=== PATIENT | male | born 1965 | race Caucasian/White ===

== ENCOUNTER 2020-02-17 06:54 | Outpatient (REF) | payer OTHER, MEDICAID, SELFPAY | END 2020-02-17 06:55 | disposition home or self-care (01) | LOC: HO.LAB 06:54 | PROVIDERS: Visit Provider Internal Medicine | DX: Z20.828 Contact with and (suspected) exposure to other viral communicable diseases (principal) | CPT/HCPCS: C9803; U0003 ==

== ENCOUNTER 2020-04-07 16:22 | Outpatient (REF) | payer MEDICAID, SELFPAY | END 2020-04-07 16:23 | disposition home or self-care (01) | LOC: HO.LAB 16:22 | PROVIDERS: Visit Provider Internal Medicine | DX: Z20.828 Contact with and (suspected) exposure to other viral communicable diseases (principal) | CPT/HCPCS: C9803; U0003 ==

== ENCOUNTER 2024-06-01 08:38 | Outpatient (AMB) | payer OTHER, SELFPAY ==
[2024-06-01 08:46] VITALS: BP 117/80; PULSE 76; TEMP 36.4; O2SAT 96
--- NOTE | 2024-06-01 08:46 | AM.OFFWIN_ITS ---
Intake Vital Signs 06/01/24 08:46 Weight 150 lb BP 117/80 Blood Pressure Location Rt brachial Position Sitting Pulse 76 Pulse Source Pulse Oximeter Temp 97.6 F Temp Source Oral Pulse Oximetry (%) 96 Oxygen Delivery Method Room Air Intake Visit Reasons: EP Cough due to COPD Intake Note: Patient here for cough, foamy phlegm . Pt has COPD Patient Tobacco Use Status: Current everyday Tobacco user Allergies penicillin G Allergy (Unknown, Verified 06/01/24 08:50) unknown penicillin V Allergy (Unknown, Verified 06/01/24 08:50) unknown reaction Penicillins [PENICILLINS] Allergy (Unknown, Unverified 06/01/24 08:50) UNKNOWN Do you need a note to return to daycare/school/sports/work: No HPI HPI Comments History of Present Illness Details 59 y/o male patient who presents to the walk in clinic with c/o chronic cough, SOB And wheezing. Pt self report h/o COPD, but has not been diagnosed and treated for it. He currently has no PCP and has not been seen for few years. He is a chronic cigarette smoker for years. [facility] Medical History (Updated 06/01/24 @ 09:35 by Sarai Koehler NP) Acute respiratory disease Wheezing on auscultation Cough Family History (Updated 01/14/20 @ 15:30 by JAQUELIN Troncoso) Father Lung cancer Mother Unknown family medical history Social History Patient Tobacco Use Status: Current everyday Tobacco user Review of Systems Const All systems reviewed & are unremarkable except as noted in HPI and below Physical Exam Vital Signs: Last Vital Signs Temp 97.6 F 06/01/24 08:46 Pulse 76 06/01/24 08:46 BP 117/80 06/01/24 08:46 Pulse Ox 96 06/01/24 08:46 Oxygen Delivery Method Room Air 06/01/24 08:46 Const General: cooperative and no acute distress Orientation/consciousness: patient oriented x3 HEENT Head: Yes normocephalic Ears: external ears normal and TM's normal bilaterally General nose exam: Normal external nose present Face and sinus: Yes normal facial exam Mouth: moist mucous membranes Resp Effort & Inspection: able to speak in complete sentences, audible wheezes and Actively coughing Auscultation: no crackles, no rales, rhonchi and wheezes Cardio Heart sounds: S1 normal heart sound present and S2 normal heart sound present Neuro General: patient oriented x3 Office Procedures Nebulizer Treatment Nebulizer Treatment [id number]/MDI RX initial, or Nebulizer Subsequent Treatment Office Meds ipratropium 0.5 mg-albuterol 3 mg (2.5 mg base)/3 mL nebulization soln Performing Provider: Sarai Koehler NP Performing Location: [facility] Administered by: Sarai Koehler NP on 06/01/24 09:26 Dose Route Admin Location Dispensed Lot Number Expiration Date [facility] Director Cpg 3 mL inhalation 3 mL [id number] 06/05/25 71292-420-28 AHP Assessment & Plan Assessment & Plan (1) Cough: Code(s): R05.9 - Cough, unspecified Qualifiers: Cough type: chronic Qualified Code(s): R05.3 - Chronic cough Plan: Neb Treatment in office Prednisone for 5 days Doxy for 10 days Chest Xray ordered Will have Pt establish care with New PCP. (2) Wheezing on auscultation: Code(s): R06.2 - Wheezing Plan: Neb Treatment in office Prednisone for 5 days Doxy for 10 days Chest Xray ordered Will have Pt establish care with New PCP. (3) Acute respiratory disease: Code(s): J06.9 - Acute upper respiratory infection, unspecified Plan: Neb Treatment in office Prednisone for 5 days Doxy for 10 days Chest Xray ordered Will have Pt establish care with New PCP. Plan Neb Treatment in office Prednisone for 5 days Doxy for 10 days Chest Xray ordered Will have Pt establish care with New PCP. Orders: Orders XR chest 2V Today R05.9 - Cough, unspecified AMB Nebulizer Treatment Today R05.3 - Chronic cough, R06.2 - Wheezing SARS-CoV2/FLU/RSV Today J06.9 - Acute upper respiratory infection, unspecified Medications: New albuterol sulfate 90 mcg/actuation 2 puffs inhalation Q4-6H PRN 6.7 grams 0RF shortness of breath or wheezing levofloxacin 750 mg PO Q24H 5 days 5 tabs 0RF J06.9 - Acute upper respiratory infection, unspecified, R05.3 - Chronic cough, R06.2 - Wheezing prednisone 50 mg PO DAILY 5 days 5 tabs 0RF J06.9 - Acute upper respiratory infection, unspecified, R05.3 - Chronic cough, R06.2 - Wheezing doxycycline hyclate 100 mg PO BID 10 days 20 tabs 0RF J06.9 - Acute upper respiratory infection, unspecified, R05.3 - Chronic cough, R06.2 - Wheezing Discontinued nicotine Discontinued Reason: Patient Completed Course 1 patch transdermal DAILY 28 patches 3RF Coding Level of Care Code Est Pt Level 4 (72364) Diagnoses Chronic cough R05.3 Cough type: chronic Wheezing on auscultation R06.2 Acute respiratory disease J06.9 CPT Codes Nebulizer Treatment - Nebulizer Treatment, initial or subsequent: 70239- Nebulizer/MDI RX initial, or Nebulizer Subsequent Treatment ([id number]) Time Spent (min) 20
== END 2024-06-01 09:42 | disposition home or self-care (01) ==
PROVIDERS: Visit Provider Nurse Practitioner Family
DX: R05.3 Chronic cough (principal); R06.2 Wheezing; J06.9 Acute upper respiratory infection, unspecified

== ENCOUNTER 2024-06-01 08:38 | Outpatient (REF) | payer OTHER, SELFPAY ==
--- NOTE | ~2024-06-01 | XR_ITS ---
EXAMINATION: XR CHEST CLINICAL INFORMATION: R05.9 - Cough, unspecified; chronic cough, wheezing, dyspnea. COMPARISON: 07/29/2019. TECHNIQUE: 2 views of the chest were obtained. FINDINGS: The cardiac silhouette is largely obscured but appears likely normal in size. Mediastinal contours appear normal. Aura are obscured. Lungs demonstrate extensive consolidation with air bronchograms throughout the majority of the left long, with only the most superior upper lobe normally aerated. In addition, there is patchy peribronchovascular similar opacity in the right mid and lower lung. Findings reflect multifocal pneumonitis. There is no definite effusion or pneumothorax. There is no focal osseous or soft tissue abnormality. XR/XR chest 2V IMPRESSION: 1. Extensive left greater than right multifocal pneumonitis. 2. No definite pleural effusions although limited assessment on the left due to the degree of consolidation. Findings conveyed to Sarai Koehler NP via secure text at 9:51 AM, 06/01/2024. Electronically signed by: Carlos Moya MD 06/01/2024 09:51 AM LELA
== END 2024-06-01 08:39 | disposition home or self-care (01) ==
LOC: HO.HMGCX 08:38
PROVIDERS: Visit Provider Nurse Practitioner Family
DX: R05.3 Chronic cough (principal); R06.2 Wheezing; J06.9 Acute upper respiratory infection, unspecified
CPT/HCPCS: 71046; 94640; 99212

== ENCOUNTER → 2024-06-01 09:10 | Outpatient (BNV) | payer OTHER, SELFPAY | PROVIDERS: Visit Provider Radiology Diagnostic Radiology | DX: J18.9 Pneumonia, unspecified organism (principal) | CPT/HCPCS: 71046 ==

== ENCOUNTER 2024-06-01 09:35 | Outpatient (REF) | payer OTHER, SELFPAY ==
[2024-06-01 12:22] LABS: Influenza A PCR NEGATIVE (Negative); Influenza B PCR NEGATIVE (Negative); Resp Syncy Virus RNA Qual PCR NEGATIVE (Negative); SARS COV2 PCR INHOUSE NEGATIVE (Negative)
== END 2024-06-01 09:36 | disposition home or self-care (01) ==
LOC: HO.LAB 09:35
PROVIDERS: Visit Provider Nurse Practitioner Family
DX: J06.9 Acute upper respiratory infection, unspecified (principal)
CPT/HCPCS: 0241U

== ENCOUNTER 2024-06-14 10:37 | Inpatient (IN) | payer OTHER, SELFPAY ==
[2024-06-14] VITALS (9 sets, daily range): BP systolic 102–124; BP diastolic 40–75; PULSE 68–93; RESP 18–22; TEMP 36.6–37; O2SAT 86–94; BMI 20.8
--- NOTE | ~2024-06-14 | XR_ITS ---
CLINICAL HISTORY: Right rib cage pain Exam: AP portable chest x-ray. Comparison: July 24, 2024. Findings: Patient has undergone prior left pneumonectomy. Continued large left pleural effusion with continued lucency of the left apex. This suggests increasing fluid filling of the pneumonectomy bed. Dense consolidation of the right mid lung and right lung base with small right pleural effusion. There is volume loss of the left hemithorax with leftward mediastinal shift. Impression: 1. Continued postpneumonectomy changes on the left. Continued radiographic follow-up suggested to ensure complete opacification of the left hemithorax and exclude the possibility of a bronchial stump leak. 2. Edema or pneumonitis within the right lung. This document has been electronically signed by: Bernabe Boateng MD on 07/26/2024 14:09:34
--- NOTE | ~2024-06-14 | XR_ITS ---
EXAMINATION: XR CHEST CLINICAL INFORMATION: pneumonia COMPARISON: 06/01/2024, CT chest 06/27/2024. TECHNIQUE: Frontal view of the chest was obtained. FINDINGS: There is a right midline PICC catheter. This terminates in the right axillary region. The cardiac silhouette is largely obscured. It is likely normal in size. The hilar silhouettes are obscured. The mediastinal and aortic contours appear normal. Extensive parenchymal opacification throughout the entire left lung. No definite left effusion. Extensive parenchymal opacification throughout the mid and lower right lung with probable small effusion. There is underlying COPD. No pneumothorax. No focal osseous or soft tissue abnormality. XR/XR chest 1V IMPRESSION: 1. Extensive parenchymal opacification left greater than right lungs with underlying COPD. Compared with the recent chest CT, there has been mild improvement in the right upper lung region but otherwise no change. (Given the appearance on the recent chest CT, bilateral lung abscesses are suspected). 2. No pneumothorax. 3. Probable small right effusion. No definite left effusion. Electronically signed by: Carlos Moya MD 07/03/2024 01:00 PM EDT
--- NOTE | ~2024-06-14 | XR_ITS ---
EXAMINATION: XR CHEST CLINICAL INFORMATION: hypoxia: Recent left pneumonectomy. Multifocal pneumonia. COMPARISON: Numerous reason priors, most recently 07/28/2024 at 9:47 AM. TECHNIQUE: Frontal view of the chest was obtained. FINDINGS: Left pneumonectomy again noted with fluid occupying the left thoracic space, and a small amount of pneumatization in the pneumonectomy bed superiorly. Appearance is similar to the previous study, with minimal expected decrease in the amount of left apical pneumatization. The cardiac and mediastinal contours are obscured. There is leftward mediastinal shift. There is hyperaeration of the right lung, compensatory. There are similar confluent diffuse opacities throughout the right lung, most confluent in the right mid and lower lung in keeping with stable pneumonitis. Suspect small effusion on the right. No right pneumothorax. XR/XR chest 1V IMPRESSION: 1. Slightly less pneumatization in the left superior thorax, expected postoperative evolution. 2. Stable appearing diffuse pneumonitis throughout the right lung most confluent mid and lower region. Electronically signed by: Carlos Moya MD 07/30/2024 08:15 AM EDT
--- NOTE | ~2024-06-14 | XR_ITS ---
EXAMINATION: XR CHEST CLINICAL INFORMATION: f/u left pneumonectomy, increas oxygen requirement COMPARISON: Numerous priors, most recently 07/26/2024. TECHNIQUE: Frontal view of the chest was obtained. FINDINGS: Left pneumonectomy again noted with fluid occupying the left thoracic space, and a small amount of pneumatization in the pneumonectomy but it superiorly. Appearance is similar to the previous study. The cardiac and mediastinal contours are obscured. There is leftward mediastinal shift. There is hyperaeration of the right lung, compensatory. There are mildly more confluent diffuse opacities throughout the right lung, in keeping with worsening pneumonitis. Suspect small effusion on the right. No right pneumothorax. XR/XR chest 1V IMPRESSION: 1. Slightly more confluent airspace disease throughout the hyperaerated right lung. Electronically signed by: Carlos Moya MD 07/28/2024 10:48 AM EDT
--- NOTE | ~2024-06-14 | MR_ITS ---
EXAMINATION: MRCP protocol CLINICAL INFORMATION: Concerning choledocholithiasis TECHNIQUE: Axial and coronal T2 haste sequences. Axial and coronal T2 fat-sat haste sequences. Coronal oblique T2 fat-sat single slice. 3-D space MRCP triggered. Axial in and out of phase 3-D. COMPARISON: Correlated to ultrasound limited dated July 24, 2024. FINDINGS: There is layering hypointense T2 signal in the dependent portion of the gallbladder. Gallbladder wall measures 2 mm maximal thickness. No pericholecystic fluid collection. Common bile duct measures 5 mm maximal diameter. There is an abrupt cut off in the distal segment prior to junction into the second portion of the duodenum. No gross intraluminal signal abnormality. Main pancreatic duct measures 2 mm maximum diameter. There are a few, less than 3 mm hyperintense T2 cystic lesions in the head of the pancreas. No peripancreatic fluid collection. Liver measures 16 cm. No focal mass. The flow signal within the portal vein and hepatic veins and intrahepatic portion of the IVC is normal. No intrahepatic biliary ductal dilatation. Spleen measures 9 cm. No focal lesion. No nodular lesions in the adrenal glands. No hydronephrosis in either kidney. There is a 1.3 cm exophytic fluid signal characteristic lesion in the upper pole right kidney. There is a 1 cm exophytic fluid signal characteristic lesion in the posterior midportion, right kidney. No ascites. There is an intraluminal hypointense T1 and hyperintense T2 signal abnormality throughout the infrarenal abdominal aorta and extending into the right common iliac artery. There is no aneurysm in the abdominal aorta. There is a large volume airspace disease in the right and to a lesser extent left lungs. MR/MR MRCP IMPRESSION: Biliary sludge. 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 No gross choledocholithiasis. Multifocal pneumonia. 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 Electronically signed by: Candelario Patel MD 07/28/2024 08:05 AM EDT
--- NOTE | ~2024-06-14 | CT_ITS ---
CLINICAL HISTORY: dyspnea, worsening hypoxia, recent multifocal PNA CT ANGIOGRAPHY CHEST WITH CONTRAST. 3D POSTPROCESSING. Comparison: None Findings: The heart is normal size. RV/LV ratio is normal. No thoracic aortic aneurysm or dissection. No acute pulmonary embolus. No thyromegaly or lymphadenopathy. Multiple nonenlarged and likely reactive mediastinal lymph nodes. Centrilobular emphysematous changes. Extensive airspace and ground-glass opacities in the left upper and bilateral lower lobes. There are multifocal air-fluid levels in the left lung. There are coalescent airspace opacities in the left lower lobe. No pneumothorax. Partial visualization of eccentric mural thrombus in the abdominal aorta with [id number] luminal narrowing. No acute fractures. IMPRESSION: 1. No pulmonary embolus. 2. Extensive bilateral airspace and ground-glass opacities, left greater than right, consistent with an inflammatory or infectious process. 3. Superimposed multifocal air-fluid levels in the left lung raise the possibility of multifocal abscesses and/or cavitary lesions with superimposed infection. 4. Emphysema. This document has been electronically signed by: Taylor Gloria DO on 06/14/2024 13:37:06
--- NOTE | ~2024-06-14 | CT_ITS ---
CLINICAL HISTORY: persistent hypoxia CT chest without contrast Comparison: CT/SR - CT ANGIO CHEST PE PROTOCOL - 06/14/24 11:[address] - CT ANGIO CHEST PE PROTOCOL - 06/14/24 11:50 EDT CR/AL/SR - XR CHEST 2V - 06/01/24 09:19 EST CR/SR - CHEST 1 VIEW - 07/29/19 10:20 EDT Findings: Mediastinal and hilar lymph nodes measure up to 1.3 cm in short axis. Leftward shift of the mediastinum, unchanged. Cardiomegaly. Mild calcified coronary artery disease. Normal size thoracic aorta. Mild calcified atherosclerotic disease. Substantial paraseptal emphysema. Advanced destructive centrilobular emphysema. Moderate bronchial wall thickening. Extensive bilateral consolidation and ground-glass opacity. Consolidation is most prominent in the lower lobes. There are air-fluid levels in the left lower lobe, also present on the prior study, which may indicate fluid within pulmonary cysts or be due to pulmonary abscesses/cavitation. There is ground-glass/patchy opacity which is most prominent in the left upper lobe. Multifocal pneumonia is greater on the left, similar to the prior study. No pneumothorax or pleural effusion. No acute osseous or soft tissue abnormality. Partially visualized air-filled dilation of the colon in the upper abdomen, measuring up to 5.7 cm. Impression: Persistent, extensive multifocal pneumonia. Pulmonary abscesses/cavitation could be considered in the left lower lobe. Follow up to complete resolution is recommended. This document has been electronically signed by: Shalini Nieto MD on 06/22/2024 22:23:32
--- NOTE | ~2024-06-14 | XR_ITS ---
EXAMINATION: XR CHEST 2 VIEWS HISTORY: hypoxia worsening/f/u pneumonia COMPARISON: Comparison is made with the prior examination dated 06/25/2024. FINDINGS: PA and lateral views of the chest are submitted. Again seen is extensive airspace opacity involving the entire left lung and the right mid to lower lung zone. There are air/fluid levels noted in the left lower lobe as seen on multiple prior chest CT scans. There may be tiny bilateral pleural effusions. There is no pneumothorax. The heart is normal in size. The bones are intact. XR/XR chest 2V IMPRESSION: Extensive airspace opacity in the right mid to lower lung zone and involving the entire left lung as seen previously, compatible with pneumonia. There are air/fluid levels in the left lower lobe as noted on chest CT, compatible with abscess formation. Electronically signed by: Hero Zavala MD 07/15/2024 11:42 AM EDT
--- NOTE | ~2024-06-14 | XR_ITS ---
EXAMINATION: XR CHEST CLINICAL INFORMATION: f/u left pneumonectomy COMPARISON: July 20, 2024. TECHNIQUE: Frontal view of the chest was obtained. FINDINGS: Gas/inferior in the left upper hemithorax. Level opacity from the mid to lower left hemithorax. Cardiomediastinal silhouette shifted towards the left hemithorax. Pulmonary reticular pattern with the patchy and confluent opacities from the mid to lower right hemithorax and air bronchograms. There is a catheter/low-lying in the medial soft tissues of the right brachial region extending to the right axillary region, unclear exact location. Vascular clips in the left pulmonary hilum. Mild multilevel thoracic spondylosis. Gas filled prominent splenic colonic flexure and likely mildly prominent small bowel bowel loops in the left upper hemiabdomen. XR/XR chest 1V IMPRESSION: Atelectatic/collapsed left lung with stable hydropneumothorax, left side. Pulmonary edema versus ARDS versus multifocal pneumonia versus pneumonitis, right lung. Overall no gross change. Electronically signed by: Candelario Patel MD 07/22/2024 08:01 AM EDT
--- NOTE | ~2024-06-14 | CT_ITS ---
CLINICAL HISTORY: multifocal pneumonia CT chest without contrast Comparison: 06/22/2024 Findings: The heart is normal size. A few prominent and enlarged mediastinal nodes measuring up to 14 mm in short axis not significantly changed from prior exam. Small amount of fluid in the nondistended thoracic esophagus. Query GE reflux. Smoking-related lung changes. No significant change in multilobar, left more than right, and mostly confluent bilateral pneumonia (component of aspiration pneumonia cannot be excluded). No significant change in cavitating changes (with air-fluid levels; abscess/abscesses measuring up to 6 cm in length on series 6, image 66 can not be excluded) in the left lower lung. Secretion/mucus in the left lower lobe bronchus. Partial obliteration of a few of the left-sided subsegmental bronchi. No significant change in [id number] left-sided mediastinal shift. Partially calcified left right upper hemithoracic pleural plaque is redemonstrated. Incompletely evaluated too small to characterize right renal hypodense lesion. The bones are intact. IMPRESSION: No significant change in multilobar predominantly left-sided pneumonia (width likely component of aspiration pneumonia). Redemonstration of cavitating lesions (possibly abscess/abscesses) with air-fluid levels in the left lower lobe. If not already performed rag shredder +/-interventional radiologist consultation recommended. Secretions in the left lower lobe bronchus along with partial obscuration of the left lower lobe subsegmental bronchi (possibly due to secretions) with associated stable [id number] left-sided mediastinal shift. This document has been electronically signed by: Lizette Dumont MD on 06/27/2024 10:12:29
--- NOTE | ~2024-06-14 | XR_ITS ---
CLINICAL HISTORY: post Chest tube 1 view chest x-ray Comparison: 07/19/2024, 6:46 a. M. Findings: Portions of the exam are obscured by overlying material. Left chest tube has been removed with the chest otherwise unchanged. IMPRESSION: 1. No significant change following removal of left chest tube. This document has been electronically signed by: Uzair Juárez MD on 07/19/2024 21:58:54
--- NOTE | ~2024-06-14 | XR_ITS ---
EXAMINATION: XR CHEST CLINICAL INFORMATION: s/p left pneumonectomy COMPARISON: 07/15/2024. TECHNIQUE: Frontal view of the chest was obtained. FINDINGS: Endotracheal tube is noted to lie in good position 3 cm above the antonio. There is a second lumen tube extending into the left mainstem bronchus. Left chest tube is in place within the left hemithorax, terminating in the left apex. PH versus temperature probe seen in the midline overlying the trachea, terminating 3 cm above the antonio. Post left pneumonectomy with air filling the left thoracic cavity. No definitive effusion. Multifocal opacities throughout the right lung, similar to the prior radiograph with perhaps minimal improvement. Suspect a tiny right effusion. The cardiac, mediastinal contours are normal. Mild leftward mediastinal shift. Surgical clips seen in the left hilar region. Subcutaneous emphysema seen throughout the left chest wall. XR/XR chest 1V IMPRESSION: 1. Endotracheal tube in good position, with second luminal tube extending into the left mainstem bronchus. 2. Left-sided chest tube in the left apex. 3. Left pneumonectomy with gas throughout the left thoracic cavity. Mild left mediastinal shift. 4. Opacity throughout the aerated right lung, minimally less confluent than on the prior radiograph. Above findings communicated to Dr. Gee directly via phone call at 11:24 AM, 07/17/2024. Electronically signed by: Carlos Moya MD 07/17/2024 11:26 AM EDT
--- NOTE | ~2024-06-14 | XR_ITS ---
CLINICAL HISTORY: s p left pneumonectomy 1 view chest x-ray Comparison: 07/17/2024 Findings: Portions of the exam are obscured by overlying material. The overall appearance of the chest including the left chest tube, left pleural effusion, and bilateral consolidation, not significantly changed. Endotracheal tube is a proximally 1.6 cm above the antonio. IMPRESSION: 1. No significant change from yesterday. This document has been electronically signed by: Uzair Juárez MD on 07/18/2024 08:43:32
--- NOTE | ~2024-06-14 | XR_ITS ---
CLINICAL HISTORY: s p left pneumonectomy 1 view chest x-ray Comparison: 07/19/2024 Findings: Portions of the exam are obscured by overlying material. The overall appearance of the chest including diffuse consolidation in the right lung and possible left atelectasis, are not significantly changed. IMPRESSION: 1. No significant change from prior study. This document has been electronically signed by: Uzair Juárez MD on 07/20/2024 06:27:22
--- NOTE | ~2024-06-14 | US_ITS ---
EXAMINATION: US ABDOMEN LIMITED CLINICAL INFORMATION: Aerated liver enzymes.. COMPARISON: None available. TECHNIQUE: Real-time imaging of the right upper quadrant abdominal viscera. FINDINGS: PANCREAS: No peripancreatic fluid collections. Main pancreatic duct measures 2 mm. LIVER: Liver measures 16 cm. Normal echotexture. No nodular contour. No solid or cystic lesion detected by the technologist. No intrahepatic biliary ductal dilatation. GALLBLADDER: Heterogeneous mixed slightly hyperechoic abnormality is within layering within the gallbladder lumen. No bladder wall measures 3 mm. No pericholecystic fluid collection. COMMON BILE DUCT: 6 mm. RIGHT KIDNEY: 11 cm. Normal echotexture. Normal renal cortical thickness. No hydronephrosis. 1.1 cm exophytic anechoic lesion without septations or nodular components were flow on color Doppler interrogation centered in the upper pole. Normal flow on color Doppler interrogation of the renal hilum. FREE FLUID: None. US/US abdomen limited IMPRESSION: Cholelithiasis and biliary sludge with borderline wall thickening and mildly prominent common bile duct. 1.1 cm Bosniak type I cyst, right kidney. Electronically signed by: Candelario Patel MD 07/24/2024 09:47 AM EDT
--- NOTE | ~2024-06-14 | CT_ITS ---
EXAMINATION: CT CHEST WITHOUT CONTRAST CLINICAL INFORMATION: Lung cancer. Pneumonia. COMPARISON: Chest x-ray 08/03/2024. CT chest 06/27/2024 TECHNIQUE: Multidetector volumetric CT imaging of the chest was done. Axial MIP volume rendering provided. Sagittal and coronal reformatted images were obtained. This CT examination was performed using dose optimization techniques as appropriate, variously including the following: *Automated exposure control *Adjustment of mA and/or kV according to patient size (this includes techniques or standardized protocols for targeted exams where dose is matched to indication/reason for exam; i.e. extremities or head) *Use of iterative reconstruction technique DLP: 238 mGy/cm. 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 LUNGS: Since the previous exam there is left pneumonectomy with fluid occupying the left hemithorax. There is air bronchograms, consolidation and cystic changes throughout the right lower lobe. Patchy and groundglass attenuation honeycombing is seen in the upper lobe likely superimposed infiltrate as well. Diffuse centrilobular emphysema with cystic changes seen in the remaining right upper and middle lobe. MEDIASTINUM: There are reactive moderate sized lymph nodes seen in the mediastinum. The central trachea and the bronchi are widely patent. Thyroid lobes are symmetric and normal. Scattered reactive lymph nodes are seen in the mediastinum with the largest precarinal lymph node measuring 1.2 cm in short axis axial image 70/4 similar to previous exam. CORONARY ARTERY CALCIFICATION: None visualized on this study. PLEURA: There is a right upper lobe posterior 9 mm calcified pleural plaque. The left hemithorax postpneumonectomy has moderate simple fluid measuring 10 Hounsfield units. AXILLA: No lymphadenopathy. UPPER ABDOMEN: Visualized liver, spleen, pancreas and bilateral adrenal glands are unremarkable. OSSEOUS STRUCTURES: No aggressive lytic or sclerotic process seen. CT/CT chest wo IV con IMPRESSION: Post left pneumonectomy there is moderate fluid in the left hemithorax with ipsilateral mediastinal shift. There is airspace consolidation with cystic changes and right lower lobe. Chronic interstitial thickening, cystic changes and emphysematous changes are seen in the right upper lobe . Fleischner guidelines were followed. Electronically signed by: Orlando Banks MD 08/04/2024 05:08 PM EDT
--- NOTE | ~2024-06-14 | XR_ITS ---
CLINICAL HISTORY: Status post left pneumonectomy. 1 view chest x-ray Comparison: 07/22/2024 Findings: Portions of the exam are obscured by overlying material. The overall appearance of the chest including diffuse consolidation with volume loss in the left hemithorax, is not significantly changed IMPRESSION: 1. No significant change from prior exam. This document has been electronically signed by: Uzair Juárez MD on 07/24/2024 06:50:40
--- NOTE | ~2024-06-14 | XR_ITS ---
EXAMINATION: XR CHEST CLINICAL INFORMATION: s/p left pneumonectomy COMPARISON: Earlier same day at 6:04 AM, 07/19/2024, and dating back to 06/25/2024. TECHNIQUE: Frontal view of the chest was obtained. FINDINGS: Compared with the most recent exam, no significant change. No lines or tubes. Post left pneumonectomy with air and fluid filling the left thoracic cavity. Multifocal opacities throughout the right lung, similar to the prior radiograph. Suspect a tiny right effusion. The cardiac, mediastinal contours are largely obscured. Mild leftward mediastinal shift. Surgical clips seen in the left hilar region. Subcutaneous emphysema seen throughout the left chest wall. XR/XR chest 1V IMPRESSION: No significant interval change since earlier same day at 6:04 AM. Electronically signed by: Carlos Moya MD 07/20/2024 04:50 PM EDT
--- NOTE | ~2024-06-14 | XR_ITS ---
EXAMINATION: XR CHEST CLINICAL INFORMATION: follow up on pneumonia COMPARISON: July 30, 2024 TECHNIQUE: Frontal view of the chest was obtained. FINDINGS: [3 throughout the left hemithorax. Cardiac mediastinal silhouette is shifted to the left hemithorax. Multifocal patchy and confluent opacities throughout the lung with a little aerated right lung apex. No pneumothorax. Vascular clips in the mediastinum/left pulmonary hilum. Multilevel thoracolumbar spondylosis. XR/XR chest 1V IMPRESSION: No gross change Electronically signed by: Candelario Patel MD 08/03/2024 01:13 PM EDT
--- NOTE | ~2024-06-14 | XR_ITS ---
CLINICAL HISTORY: f up left pneumonectomy 1 view chest x-ray Comparison: 07/18/2024 Findings: Portions of the exam are obscured by overlying material. There is increasing pulmonary consolidation. The exam is otherwise unchanged including positioning of the left chest tube and left hydropneumothorax. IMPRESSION: 1. Increased pulmonary consolidation with otherwise no change from prior exam. This document has been electronically signed by: Uzair Juárez MD on 07/19/2024 07:23:18
--- NOTE | 2024-06-14 10:48 | ECG_ITS ---
Test Reason : DYSPNEA Blood Pressure : */* mmHG Vent. Rate : 84 BPM Atrial Rate : 84 BPM P-R Int : 142 ms QRS Dur : 82 ms QT Int : 364 ms P-R-T Axes : 78 96 63 degrees QTcB Int : 430 ms Normal sinus rhythm Rightward axis Borderline ECG No previous ECGs available Referred By: Natacha Aguilar Electronically Signed By: MATHEUS BROOKS
--- NOTE | 2024-06-14 11:01 | ED_ITS ---
HPI - SOB/Dyspnea General Chief Complaint: Dyspnea Stated Complaint: diff breathing Time Seen by Provider: 06/14/24 10:46 Source: patient Mode of arrival: ambulatory Limitations: no limitations History of Present Illness ED Provider: LISET WONG Narrative: 59 yo male with 44 pack year history does not follow with doctors regularly states he went to [facility]'s office 4 years ago. 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 He has been having cough and not feeling well with dyspnea for 3+ weeks. Seen at urgent care on 06/01 CXR showed multifocal pneumonitis - started on levofloxacin, albuterol INH which he already used up, prednisone, doxycycline. He states he felt well for about 2 days but that was it. He denies weight loss but is having sweats. He has a dry cough and is producing some sputum. No chest pain or fevers reported. Walked into ED 86% RA MD elicited complaint: shortness of breath and cough Onset (ago): week(s) (3) Context: recent illness and occurred during exertion Timing: progressively worsening Severity: severe Exacerbating factors: lying flat, exertion and coughing Relieving factors: rest Associated symptoms: cough, wheezing and sputum production Treatment prior to arrival: other (prednisone, levofloxacin, doxy) Related Data Home Medications ?Medication ?Instructions ?Recorded ?Confirmed albuterol sulfate 90 mcg/actuation 2 puff inhalation Q6H PRN 06/14/24 06/14/24 aerosol inhaler shortness of breath or wheezing ibuprofen 400 mg tablet 400 mg PO Q8H PRN Pain 06/14/24 06/14/24 Allergies Allergy/AdvReac Type Severity Reaction Status Date / Time penicillin G Allergy Unknown unknown Verified 06/14/24 10:46 penicillin V Allergy Unknown unknown Verified 06/14/24 10:46 reaction Penicillins [PENICILLINS] Allergy Unknown UNKNOWN Verified 06/14/24 10:46 Review of Systems 2 Review of Systems: Constitutional : No Fever, No Chills ENT/Mouth : No Hoarseness, No sore throat, No Rhinorrhea Eyes: No Redness, No Discharge, No Vision Changes Cardiovascular : No Chest Pain, positive SOB, positive Dyspnea on Exertion, No Edema Respiratory : positive Cough, pos Sputum, positive Wheezing, Gastrointestinal : No Nausea, No Vomiting, No Diarrhea, No abdominal Pain Genitourinary : No Dysuria, No Hematuria Musculoskeletal : No joint pain, No Myalgias Skin : No rash Neuro : No Weakness, No Numbness, No Headache Psych : No anxiety, depression All other systems reviewed and are negative [facility] Past Medical History Attestation statement: The following information was validated with the patient. Source: old records reviewed Medical History Acute respiratory disease Wheezing on auscultation Cough Family History Family History Father Lung cancer Mother Unknown family medical history Social History Social History Alcohol intake: former Patient Tobacco Use Status: Current everyday Tobacco user Smoked in Last 30 Days: No Use of substances other than those prescribed or required for medical reasons: No Advance Directives: No Advance Directives Information Provided: Yes Do you have a plan to hurt others: No Plan Physical Exam 2 Vital Signs: Vital Signs: Last Vital Signs Temp 98.1 F 06/14/24 15:40 Pulse 84 06/14/24 15:48 Resp 18 06/14/24 15:48 BP 121/68 06/14/24 15:40 Pulse Ox 93 06/14/24 15:40 O2 Del Method Nasal Cannula 06/14/24 15:40 O2 Flow Rate 4 06/14/24 15:40 BMI result Body Mass Index 20.8 Appearance: Alert. Oriented X3. Mild acute distress. Eyes: Pupils equal, round and reactive to light. ENT: Pharynx normal. Neck: Normal inspection. Neck supple. CVS: Normal heart rate and rhythm. Pulses normal. Respiratory: Mild respiratory distress short phrases, tachypnea. Breath sounds diffuse exp wheezes, poor air movement, very diminished Abdomen: Soft and nontender. Skin: Skin warm and dry. Normal skin color. Normal skin turgor. Extremities: No lower extremity edema. No calf ttp Neuro: Oriented X 3. No motor deficit. No sensory deficit. CN2-12 intact Course Course Course Narrative: moved to [facility] pressure room Medications Administered Generic Name Dose Route Start Last Admin Trade Name Freq PRN Reason Stop Dose Admin Albuterol/Ipratropium 3 ml 06/14/24 16:00 06/14/24 15:46 Albuterol/Iprat 2.5/0.5mg 3 Ml Ampul.Neb INHALE 3 ml RQ4H WHILE AWAKE CRISTINE Administration Enoxaparin Sodium 40 mg 06/14/24 16:00 06/14/24 16:27 Enoxaparin Sodium 40 Mg/0.4 Ml Syringe SUBCUT 40 mg Q24H CRISTINE Administration Vancomycin HCl 1,000 mg/ 535 mls @ 267.5 mls/hr 06/14/24 15:00 06/14/24 16:26 Vancomycin HCl 750 mg/ Sodium IV 06/14/24 16:59 267.5 mls/hr Chloride ONCE ONE Administration Sodium Chloride 3 ml 06/14/24 16:00 06/14/24 16:26 0.9 % Sodium Chloride Flush 3 Ml Syringe IVFLUSH Not Given QSHIFT CRISTINE Discontinued Medications Generic Name Dose Route Start Last Admin Trade Name Freq PRN Reason Stop Dose Admin Albuterol Sulfate 5 mg/ 0 mg 06/14/24 11:17 06/14/24 11:19 Albuterol/Ipratropium 3 ml INHALE 06/14/24 11:18 1 each ONCE ONE Administration Magnesium Sulfate 2 gm in 50 mls @ 150 mls/hr 06/14/24 10:48 06/14/24 11:54 Magnesium Sulfate/H2o IV 06/14/24 11:07 Infused ONCE ONE Infusion Cefepime HCl 2 gm in 50 mls @ 100 mls/hr 06/14/24 10:48 06/14/24 11:54 Maxipime IV 06/14/24 11:17 Infused ONCE ONE Infusion Lactated Ringer's 1,000 mls @ 999 mls/hr 06/14/24 11:39 06/14/24 14:13 Lr IV 06/14/24 12:39 Infused .Q1H1M ONE Infusion Iohexol 100 ml 06/14/24 11:58 06/14/24 11:59 Iohexol 350 Mg/Ml 100 Ml Infus..Btl IV 06/14/24 11:59 65 ml ONCE ONE Administration Methylprednisolone Sodium Succinate 60 mg 06/14/24 10:48 06/14/24 11:14 Methylprednisolone Sod Succ 125 Mg/2 Ml Vial IVPUSH 06/14/24 10:49 60 mg ONCE ONE Administration Sodium Chloride 4 ml 06/14/24 15:25 06/14/24 15:46 Sodium Chloride 3 % Inhalation 15 Ml Vial.Neb INHALE 06/14/24 15:26 4 ml ONCE ONE Administration Medical Decision Making Medical Decision Making [facility] Narrative: 59 yo male with 44 pack year history does not follow with doctors now here with hypoxia, wheezing, poor air movement on arrival placed on O2 - nebs, IV steroids, given recent broad abx start on cefepime reports only rash as allergy, IV magnesium, carter labs and given his smoking hx and hypoxia I am going to order CTA of chest. Likely admit for hypoxia. Differential Diagnosis Differential Diagnoses: The differential diagnosis associated with the presentation includes mass, pneumonia, VTE, pneumonitis Admission/Observation Consideration of admission/observation: Escalation of care including admission/observation considered admit for hypoxia and further work up Consult Healthcare Provider Management of the patient was discussed with: Hospitalist (antonio moore) Lab Data [facility] Lab Attestation statement: I reviewed the patient's lab results. 06/14/24 11:04 06/14/24 11:04 Labs: Lab Results 06/14/24 06/14/24 06/14/24 Range/Units 11:04 11:10 11:20 WBC 12.2 H (4.8-10.8) X10*3/uL RBC 6.69 H (4.60-5.80) X10*6/uL Hgb 20.8 H (14.0-18.0) g/dl Hct 60.5 H (42.0-52.0) % MCV 90.4 (80.0-98.0) fL MCH 31.1 (27.0-33.0) pg MCHC 34.4 (31.0-36.0) g/dl RDW 13.5 (11.0-16.0) % Plt Count 283 (160-400) X10*3/uL MPV 9.4 (9.4-12.4) fL Immature Gran % (Auto) 0.7 H (0.0-0.4) % Neut % (Auto) 72.5 (45-73) % Lymph % (Auto) 16.5 L (20-40) % [place] % (Auto) 7.5 (2-11) % Eos % (Auto) 2.0 (0-4) % Baso % (Auto) 0.8 (0-2) % Lymph # (Auto) 2.0 (1.2-4.9) X10*3/uL [place] # (Auto) 0.9 (0.1-1.2) X10*3/uL Eos # (Auto) 0.2 (0.0-0.4) X10*3/uL Baso # (Auto) 0.1 (0.0-0.2) X10*3/uL Abs Immat Gran (auto) 0.08 H (0.00-0.03) X10*3/uL Absolute Neuts (auto) 8.9 H (2.0-8.3) x10*3/uL Absolute Nucleated RBC 0.000 (0.0-0.012) X10*3/uL Nucleated RBC % (auto) 0.0 (0.0-0.2) /100WBC VBG pH 7.34 (7.32-7.43) VBG pCO2 50 mmHg VBG pO2 40 mmHg VBG HCO3 27 H (22-26) mmol/L VBG O2 Saturation 62.0 % VBG Base Excess 0.4 mmol/L Sodium 140 (135-145) mmol/L Potassium 4.4 (3.3-5.1) mmol/L Chloride 103 (96-108) mmol/L Carbon Dioxide 25 (22-29) mmol/L Anion Gap 16 (12-20) BUN 14 (9-16) mg/dL Creatinine 0.80 (0.5-1.4) mg/dL Estim Creat Clear Calc 91.3 Estimated GFR > 60 Random Glucose 102 (60-115) mg/dL Lactic Acid 1.1 (0.5-2.0) mmol/L Calcium 9.5 (8.4-10.2) mg/dL Magnesium 1.9 (1.6-2.6) mg/dL Total Bilirubin 0.8 (0.0-1.0) mg/dL Direct Bilirubin 0.3 (0.0-0.5) mg/dL AST 23 (5-37) U/L ALT 16 (0-40) U/L Alkaline Phosphatase 113 (39-117) U/L Troponin I High Sens 4.7 (<3.5-35.0) ng/L C-Reactive Protein 2.97 H (< or = 0.50) mg/dL B-Natriuretic Peptide 50 (<100) pg/mL Total Protein 7.6 (6.5-8.0) g/dL Albumin 3.9 (3.5-5.0) g/dL Procalcitonin 0.07 ng/mL Influenza Type A (PCR) NEGATIVE (Negative) Influenza Type B (PCR) NEGATIVE (Negative) RSV RNA Qual (PCR) NEGATIVE (Negative) SARS-CoV-2 RNA (RT-PCR) NEGATIVE (Negative) Independent Interpretation I performed an independent interpretation of an: EKG and CT Scan (diffuse disease, ?multifocal abscess) Interpretation: Rate: 84 Rhythm: NSR [place]: rightward Normal P waves. Normal LUZ MARINA. Normal QRS complex. ST T wave : normal no DARCY qTC: 430 prior studies: no prior no acute ischemia The study has been interpreted contemporaneously by me. . Radiology Impression Discussion of test interpretation with radiology: I have reviewed the radiologist's reading. Independent Historian Clinical information obtained from an independent historian. History obtained from or confirmed by: Friend External Record Review External record reviewed: Outpatient record, Prior outpatient labs and Prior outpatient radiology Critical Care Time Critical Care Time Critical Care Time: Yes Total Critical Care Time: 45 Attestation: IV magnesiums, hypoxia intervention, review of records I attest to this time spent taking care of the patient Discharge Plan Discharge Clinical Impression: Hypoxia Abscess of lung with pneumonia Qualifiers: Laterality: left Lung location: lower lobe of lung Qualified Code(s): J85.1 - Abscess of lung with pneumonia Patient Disposition: Admitted As Inpatient
[2024-06-14 11:13] LABS: MANUAL DIFF FLAG NO
[2024-06-14 11:13] LABS: VBG Base Excess 0.4 mmol/L; VBG HCO3 27 mmol/L (22-26); VBG pCO2 50 mmHg; VBG pH 7.34 (7.32-7.43); VBG pO2 40 mmHg
[2024-06-14 11:13] LABS: Venous Blood Gas Refer to POC result
[2024-06-14] MEDS: cefEPime HCl/D5W 2 GM/50 ML PIGGYBACK IV ×2 (11:13→19:33)
[2024-06-14] MEDS: Magnesium Sulfate/H2O 2 GM/50 ML PIGGYBACK IV (11:14)
[2024-06-14] MEDS: methylPREDNISolone Sod Succ 125 MG/2 ML VIAL 60 MG IVPUSH (11:14)
[2024-06-14] MEDS: Albuterol Sulfate 5 MG, Albuterol/Iprat 2.5/0.5MG 3 ML 3 ML INHALE (11:19)
[2024-06-14 11:25] LABS: Lactic Acid 1.1 mmol/L (0.5-2.0)
[2024-06-14 11:27] LABS: Basophils Absolute Auto 0.1 X10*3/uL (0.0-0.2); Basophils Percent Auto 0.8 % (0-2); Eosinophils Absolute Auto 0.2 X10*3/uL (0.0-0.4); Imm Gran Abs Auto 0.08 X10*3/uL (0.00-0.03); Imm Gran Pct Auto 0.7 % (0.0-0.4); Lymphocytes Percent Auto 16.5 % (20-40); Mean Corpuscular HGB Conc 34.4 g/dl (31.0-36.0); Mean Corpuscular Hemoglobin 31.1 pg (27.0-33.0); Mean Corpuscular Volume 90.4 fL (80.0-98.0); Mean Platelet Volume 9.4 fL (9.4-12.4); Monocytes Absolute Auto 0.9 X10*3/uL (0.1-1.2); Monocytes Percent Auto 7.5 % (2-11); Neutrophils Absolute Auto 8.9 x10*3/uL (2.0-8.3); Neutrophils Percent Auto 72.5 % (45-73); Platelet Count 283 X10*3/uL (160-400); Red Blood Count 6.69 X10*6/uL (4.60-5.80); Red Cell Distribution Width 13.5 % (11.0-16.0); White Blood Count 12.2 X10*3/uL (4.8-10.8)
[2024-06-14 11:28] LABS: Hematocrit 60.5 % (42.0-52.0); Hemoglobin 20.8 g/dl (14.0-18.0)
[2024-06-14 11:36] LABS: B Type Natriuretic Peptide 50 pg/mL (<100)
[2024-06-14 11:38] LABS: Alanine Aminotransferase 16 U/L (0-40); Albumin Level 3.9 g/dL (3.5-5.0); Alkaline Phosphatase 113 U/L (39-117); Anion Gap 16 (12-20); Aspartate Amino Transferase 23 U/L (5-37); Bilirubin Direct 0.3 mg/dL (0.0-0.5); Bilirubin Total 0.8 mg/dL (0.0-1.0); Blood Urea Nitrogen 14 mg/dL (9-16); C Reactive Protein 2.97 mg/dL (< or = 0.50); Calcium 9.5 mg/dL (8.4-10.2); Carbon Dioxide 25 mmol/L (22-29); Chloride 103 mmol/L (96-108); Creatinine Clr Calc Pharmacy 91.3; Estimated Glomerular Filt Rate > 60; Glucose Random 102 mg/dL (60-115); Magnesium 1.9 mg/dL (1.6-2.6); Potassium 4.4 mmol/L (3.3-5.1); Sodium 140 mmol/L (135-145); Total Protein 7.6 g/dL (6.5-8.0); Troponin-I High Sensitivity 4.7 ng/L (<3.5-35.0)
[2024-06-14 11:52] LABS: Procalcitonin 0.07 ng/mL
[2024-06-14] MEDS: iohexoL 350 MG/ML 100 ML INFUS..BTL IV (11:59)
[2024-06-14] MEDS: Lactated Ringers 1,000 ML 999 ML IV (12:01)
[2024-06-14 12:02] LABS: Influenza A PCR NEGATIVE (Negative); Influenza B PCR NEGATIVE (Negative); Resp Syncy Virus RNA Qual PCR NEGATIVE (Negative); SARS COV2 PCR INHOUSE NEGATIVE (Negative)
--- NOTE | 2024-06-14 15:16 | PHA.MEDREC ---
Pharmacy Consult ? Medication Reconciliation Pharmacy has completed the medication reconciliation. Spoke to pt to confirm meds.
--- NOTE | 2024-06-14 15:34 | P.HPHOSP_ITS ---
History of Present Illness Date of Service: 06/14/24 Attending physician on admission: Gasper Duarte Chief Complaint: SOB, cough Pt is a 59-year-old male with no reported significant PMH, has not follow up with PCP in 5+ years, recently stopped smoking after [id number] hx who presents to the ED with?increasing SOB, difficulty breathing, productive cough, and fatigue x1 month. No fever or chills. No night sweats. Initially presented to walk-in clinic on 06/01/2023 where he was treated for pneumonia and prescribed levofloxacin and doxycycline. Pt reports symptoms improved while he was on antibiotics, though after completing prescription symptoms returned and worsened. Reports he has lost 15 lb in the last month, has chest tightness associated with deep breathing and chest pain associated with cough. No recent travel. No sick contacts. Pt reports stopped smoking after walk-in clinic visit In the ED pt with elevated heart of 93, tachypnea of 22, and hypoxia as low as 86% on RA. Labs were significant for leukocytosis 12.2, H&H 20.8/60.5, and CRP 2.97. No electrolyte abnormalities. Renal function WNL. Lactic acid WNL. Hepatic function WNL. Initial troponin 4.7. BNP WNL at 50. Tested negative for flu, RSV, COVID. CXR showed extensive left greater than right multifocal pneumonitis. CTA of chest negative for PE but showing extensive bilateral airspace and ground-glass opacities, left greater than right, consistent with inflammatory or infectious process. Also showed superimposed multifocal air- fluid levels in left lung concerning for multifocal abscesses and/or cavitary lesions with superimposed infection. EKG demonstrated normal sinus rhythm without evidence of significant ST elevations or depressions. Pt was treated with Mag sulfate, Solu-Medrol, DuoNeb, IVF, cefepime, and vancomycin. Pt will be admitted to the hospital for treatment and further evaluation of acute hypoxic respiratory failure in the setting of multifocal pneumonia with sepsis concerning for pulmonary abscesses/cavitary lesions. Review of Systems 2 Review of Systems: Negative except for that which is stated in the [facility] Medical History Acute respiratory disease Wheezing on auscultation Cough Family History Father Lung cancer Mother Unknown family medical history Social History Alcohol intake: former Patient Tobacco Use Status: Current everyday Tobacco user Smoked in Last 30 Days: No Use of substances other than those prescribed or required for medical reasons: No Advance Directives: No Advance Directives Information Provided: Yes Do you have a plan to hurt others: No Plan Meds Allergies Allergy/AdvReac Type Severity Reaction Status Date / Time penicillin G Allergy Unknown unknown Verified 06/14/24 10:46 penicillin V Allergy Unknown unknown Verified 06/14/24 10:46 reaction Penicillins [PENICILLINS] Allergy Unknown UNKNOWN Verified 06/14/24 10:46 Active Medications: Current Medications Acetaminophen (Acetaminophen 325 Mg Tablet) 650 mg PO Q6H PRN PRN Reason: Pain, Mild 1-3,fever,headache Albuterol/Ipratropium (Albuterol/Iprat 2.5/0.5mg 3 Ml Ampul.Neb) 3 ml INHALE RQ4H WHILE AWAKE CRISTINE Albuterol/Ipratropium (Albuterol/Iprat 2.5/0.5mg 3 Ml Ampul.Neb) 3 ml INHALE RQ4H WHILE AWAKE PRN PRN Reason: Shortness of Breath/Wheezing Calcium Carbonate (Calcium Carbonate 750 Mg Tab.Chew) 750 mg PO Q4H PRN PRN Reason: Heartburn Enoxaparin Sodium (Enoxaparin Sodium 40 Mg/0.4 Ml Syringe) 40 mg SUBCUT Q24H CRISTINE Guaifenesin/Codeine Phosphate (Guaifen/Codeine Sf 200/20/10ml 10 Ml Liquid) 10 ml PO Q4H PRN PRN Reason: Cough Vancomycin HCl 1,000 mg/Vancomycin HCl 750 mg/ Sodium Chloride 535 mls @ 267.5 mls/hr IV ONCE ONE Stop: 06/14/24 16:59 Cefepime HCl (Maxipime) 2 gm in 50 mls @ 100 mls/hr IV Q8H CRISTINE Magnesium Hydroxide (Milk Of Magnesia 30 Ml Oral.Susp) 30 ml PO DAILY PRN PRN Reason: Constipation Melatonin (Melatonin 3 Mg Tablet) 6 mg PO BEDTIME PRN PRN Reason: Insomnia Methylprednisolone Sodium Succinate (Methylprednisolone Sod Succ 40 Mg/Ml Vial) 40 mg IVPUSH Q12H CRISTINE Ondansetron HCl (Ondansetron Hcl 4 Mg/2 Ml Vial) 4 mg IVPUSH Q8H PRN PRN Reason: Nausea and Vomiting Pharmacy Consult (Consult Rx Vancomycin Dosing) 1 each MISCELLANE DAILY PRN PRN Reason: Consult order Sodium Chloride (0.9 % Sodium Chloride Flush 3 Ml Syringe) 3 ml IVFLUSH QSHIFT [facility] Sodium Chloride (Sodium Chloride 3 % Inhalation 15 Ml Vial.Neb) 4 ml INHALE ONCE ONE Stop: 06/15/24 16:01 Sodium Chloride (Sodium Chloride 3 % Inhalation 15 Ml Vial.Neb) 4 ml INHALE ONCE ONE Stop: 06/16/24 16:01 Home Medications ?Medication ?Instructions ?Recorded ?Confirmed ?Last Taken ?Type albuterol sulfate 90 mcg/actuation 2 puff inhalation Q6H PRN 06/14/24 06/14/24 Unknown History aerosol inhaler shortness of breath or wheezing ibuprofen 400 mg tablet 400 mg PO Q8H PRN Pain 06/14/24 06/14/24 Unknown History Physical Exam 2 Vital Signs and Narrative: Vital Signs: Last Vital Signs Temp 97.8 F 06/14/24 12:47 Pulse 93 06/14/24 12:47 Resp 22 H 06/14/24 12:47 BP 124/59 L 06/14/24 12:47 Pulse Ox 92 06/14/24 12:47 O2 Del Method Nasal Cannula 06/14/24 12:47 O2 Flow Rate 5 06/14/24 12:47 BMI result Body Mass Index 20.8 General: AOx3, no acute distress Resp: Diffuse inspiratory and expiratory wheezing and rhonchi bilaterally CVS: S1, S2, RRR GI: +BS, NT, no distention Skin: Warm, dry Neuro: Cranial nerves II-XII grossly intact bilaterally. Motor grossly intact bilaterally Extremities: No edema Psych: Appropriate affect Results Labs 06/14/24 11:04 06/14/24 11:04 Labs: Laboratory Results - last 24 hr 06/14/24 06/14/24 06/14/24 11:04 11:10 11:20 MCV 90.4 MCH 31.1 MCHC 34.4 RDW 13.5 Plt Count 283 MPV 9.4 Immature Gran % (Auto) 0.7 H Neut % (Auto) 72.5 Lymph % (Auto) 16.5 L [place] % (Auto) 7.5 Eos % (Auto) 2.0 Baso % (Auto) 0.8 Lymph # (Auto) 2.0 [place] # (Auto) 0.9 Eos # (Auto) 0.2 Baso # (Auto) 0.1 Abs Immat Gran (auto) 0.08 H Absolute Neuts (auto) 8.9 H Absolute Nucleated RBC 0.000 Nucleated RBC % (auto) 0.0 VBG pH 7.34 VBG pCO2 50 VBG pO2 40 VBG HCO3 27 H VBG O2 Saturation 62.0 VBG Base Excess 0.4 Anion Gap 16 Estim Creat Clear Calc 91.3 Estimated GFR > 60 Random Glucose 102 Lactic Acid 1.1 Calcium 9.5 Magnesium 1.9 Total Bilirubin 0.8 Direct Bilirubin 0.3 AST 23 ALT 16 Alkaline Phosphatase 113 C-Reactive Protein 2.97 H B-Natriuretic Peptide 50 Total Protein 7.6 Albumin 3.9 Procalcitonin 0.07 Influenza Type A (PCR) NEGATIVE Influenza Type B (PCR) NEGATIVE RSV RNA Qual (PCR) NEGATIVE SARS-CoV-2 RNA (RT-PCR) NEGATIVE Assessment and Plan (1) Acute hypoxic respiratory failure: Status: Acute (2) Pneumonia: Status: Acute Plan Pt is a 59-year-old male with no reported significant PMH, has not follow up with PCP in 5+ years, recently stopped smoking after 59-mrth-[id number] hx who presents to the ED with?increasing SOB, difficulty breathing, productive cough, and fatigue x1 month. Pt will be admitted to the hospital for treatment and further evaluation of acute hypoxic respiratory failure in the setting of multifocal pneumonia with sepsis concerning for pulmonary abscesses/cavitary lesions. Acute hypoxic respiratory failure in the setting of multifocal pneumonia with sepsis SOB, MCDANIEL, productive cough, desatting to the 80s on RA CTA showing extensive bilateral airspace and ground-glass opacities with superimposed multifocal abscesses and/or cavitary lesions Failed outpatient therapy started on 06/01/2024 with levofloxacin x5 days, doxycycline x10 days Meets sepsis criteria with tachycardia, tachypnea, and leukocytosis; lactic acid WNL Pt received IVF and started on broad-spectrum antibiotics in the ED Treat with vancomycin and cefepime, started 06/14/2024 DuoNebs, Solu-Medrol, guaifenesin Pulmonology consult Titrate supplemental O2 >92, wean as tolerated Monitor respiratory status ?TB Given extensive active disease, symptoms x1 month, concern for cavitary lesions, and recent weight loss will rule out TB Acid-fast stain sputum cultures x3 Check hepatits panel, HIV Isolation, contact and droplet precautions ID consult Nicotine dependence 44+ pack year hx Recently quit after walk in clinic visit on 06/01/2024 NTR prn Encourage continued smoking cessation Full Code Attending:?Dr. Duarte DVT Prophylaxis: Lovenox Pt will require a hospitalization of at least two nights for treatment of?acute hypoxic respiratory failure in the setting of multifocal pneumonia with sepsis with concerns for pulmonary abscesses/cavitary lesions. Pt will require hospital level care for administration IV antibiotics, IV steroids bronchodilators, supplemental oxygen, and specialist consultation with pulmonology and Infectious Disease. Quality Stroke Does the patient have a stroke diagnosis?: No VTE Prior VTE?: No VTE Risk Level:: Medical - moderate - high VTE Device Contraindication: Treatment Not Indicated VTE Drug Contraindication: N/A - Med Ordered
[2024-06-14] MEDS: Albuterol/Iprat 2.5/0.5MG 3 ML AMPUL.NEB INHALE ×2 (15:46→21:15)
[2024-06-14] MEDS: Sodium Chloride 3 % Inhalation 15 ML VIAL.NEB 4 ML INHALE (15:46)
[2024-06-14] MEDS: vancomycin HCL 1,000 MG, vancomycin HCL 750 MG in 0.9 % Sodium Chloride 500 ML 267.5 MG IV (16:26)
[2024-06-14] MEDS: Enoxaparin Sodium 40 MG/0.4 ML SYRINGE SUBCUT (16:27)
--- NOTE | 2024-06-14 18:02 | PC.NURSE ---
Alert and oriented, denies pain or discomfort, continues on 4 liters 02 via PR.
[2024-06-15] VITALS (13 sets, daily range): BP systolic 102–121; BP diastolic 53–64; PULSE 58–91; RESP 12–20; TEMP 36.4–37; O2SAT 91–94
[2024-06-15] MEDS: cefEPime HCl/D5W 2 GM/50 ML PIGGYBACK IV ×3 (02:20→19:54)
[2024-06-15] MEDS: 0.9 % Sodium Chloride Flush 3 ML SYRINGE IVFLUSH ×2 (02:20→21:52)
[2024-06-15] MEDS: Albuterol/Iprat 2.5/0.5MG 3 ML AMPUL.NEB INHALE ×5 (02:21→21:23)
[2024-06-15] MEDS: vancomycin HCL 1,000 MG in 0.9 % Sodium Chloride 250 ML 270 MG IV (04:40)
[2024-06-15 06:25] LABS: MANUAL DIFF FLAG NO
[2024-06-15 06:39] LABS: Creatinine Clr Calc Pharmacy 114.2; Estimated Glomerular Filt Rate > 60
[2024-06-15 06:49] LABS: Basophils Absolute Auto 0.1 X10*3/uL (0.0-0.2); Basophils Percent Auto 0.5 % (0-2); Eosinophils Absolute Auto 0.1 X10*3/uL (0.0-0.4); Eosinophils Percent Auto 0.4 % (0-4); Hematocrit 52.2 % (42.0-52.0); Hemoglobin 17.3 g/dl (14.0-18.0); Imm Gran Abs Auto 0.07 X10*3/uL (0.00-0.03); Imm Gran Pct Auto 0.5 % (0.0-0.4); Lymphocytes Absolute Auto 1.8 X10*3/uL (1.2-4.9); Mean Corpuscular HGB Conc 33.1 g/dl (31.0-36.0); Mean Corpuscular Hemoglobin 30.5 pg (27.0-33.0); Mean Corpuscular Volume 92.1 fL (80.0-98.0); Mean Platelet Volume 9.6 fL (9.4-12.4); Monocytes Percent Auto 6.8 % (2-11); Neutrophils Absolute Auto 12.1 x10*3/uL (2.0-8.3); Neutrophils Percent Auto 79.8 % (45-73); Platelet Count 236 X10*3/uL (160-400); Red Blood Count 5.67 X10*6/uL (4.60-5.80); Red Cell Distribution Width 13.2 % (11.0-16.0); White Blood Count 15.1 X10*3/uL (4.8-10.8)
[2024-06-15 07:01] LABS: HBS Num1 1.16 mIU/mL (0-7.99); HBc Num1 0.05 S/CO (0.00-0.79); HBsAGNum1 0.38 S/CO (0.00-0.99); HIV AB/AG Nonreactive (Nonreactive); HIV Num 1 0.07 S/CO (0.00-0.99); Hepatitis A Antibody IgM 0.18 Index (0-0.79); Hepatitis B Core Antibody Nonreactive (Nonreactive); Hepatitis B Surface Antigen Negative (Negative); ~HepC Num1 0.14 S/CO (0.00-0.79); ~Hepatitis A Antibody IgM Nonreactive (Nonreactive); ~Hepatitis B Surface Antibody NONREACTIVE (Nonreactive); ~Hepatitis C Antibody Nonreactive (Nonreactive)
[2024-06-15 07:24] LABS: Appearance Urine Clear; Color Urine Yellow; Glucose Urine UA Negative (Negative); Leukocyte Esterase Urine Negative (Negative); Nitrite Urine Negative (Negative); PH 5.5 (5.0-9.0); Specific Gravity - Urine >= 1.030 (1.005-1.025); Urine Blood Negative (Negative); Urine Ketones Negative (Negative); Urine Protein Negative (Neg-Trace)
--- NOTE | 2024-06-15 09:09 | MHC.CM.PN ---
CM met with Patient at bedside, in the ED. Patient lives in an apartment with his Mother and he required no services nor DME [employer]. Home/self care is Patient's goal (no PCP/PCP brochure to be provided); and CM has initiated and will follow for dc planning. Patient's Sister/HCP/Rosalie will transport to home.
[2024-06-15] MEDS: methylPREDNISolone Sod Succ 40 MG/ML VIAL IVPUSH (10:46)
--- NOTE | 2024-06-15 13:54 | P.PNIM_ITS ---
Subjective Subjective Date of Service: 06/15/24 Interval History: Being followed for bilateral pneumonia with sepsis Feeling better still complaining of shortness of breath and productive cough, denies fever, no chills, tolerating diet, no other acute events overnight. Review of Systems All other system reviewed and are negative Physical Exam 2 Vital Signs: Vital Signs: Last Vital Signs Temp 98.3 F 06/15/24 10:42 Pulse 65 06/15/24 12:04 Resp 15 06/15/24 12:04 BP 119/62 06/15/24 10:42 Pulse Ox 92 06/15/24 10:45 O2 Del Method Nasal Cannula 06/15/24 10:45 O2 Flow Rate 5 06/15/24 10:45 BMI result Body Mass Index 20.8 Const: Other: General awake alert x3, in no acute distress. Anicteric sclera Neck no JVD. CVS regular rate rhythm, Respiratory lungs bilateral rhonchi, no respiratory distress. Gastrointestinal abdomen soft, non tender, bowel sounds audible. Extremities no edema. Neuro non focal Skin no rash Appropriate affect Objective Data Active Medications Acetaminophen (Acetaminophen 325 Mg Tablet) 650 mg PO Q6H PRN PRN Reason: Pain, Mild 1-3,fever,headache Albuterol/Ipratropium (Albuterol/Iprat 2.5/0.5mg 3 Ml Ampul.Neb) 3 ml INHALE RQ4H WHILE AWAKE [facility] Last Admin: 06/15/24 12:03 Dose: 3 ml Documented By: KADI Comments: computer not working Albuterol/Ipratropium (Albuterol/Iprat 2.5/0.5mg 3 Ml Ampul.Neb) 3 ml INHALE RQ4H WHILE AWAKE PRN PRN Reason: Shortness of Breath/Wheezing Last Admin: 06/15/24 02:21 Dose: 3 ml Documented By: CHANELL Calcium Carbonate (Calcium Carbonate 750 Mg Tab.Chew) 750 mg PO Q4H PRN PRN Reason: Heartburn Enoxaparin Sodium (Enoxaparin Sodium 40 Mg/0.4 Ml Syringe) 40 mg SUBCUT Q24H [facility] Last Admin: 06/14/24 16:27 Dose: 40 mg Documented By: TOSHIA Guaifenesin/Codeine Phosphate (Guaifen/Codeine Sf 200/20/10ml 10 Ml Liquid) 10 ml PO Q4H PRN PRN Reason: Cough Cefepime HCl (Maxipime) 2 gm in 50 mls @ 100 mls/hr IV Q8H [facility] Last Infusion: 06/15/24 11:20 Dose: Infused Documented By: KINDRA Vancomycin HCl 1,000 mg/ (Sodium Chloride) 270 mls @ 270 mls/hr IV Q12H [facility] Last Infusion: 06/15/24 05:44 Dose: Infused Documented By: NOHEMY Magnesium Hydroxide (Milk Of Magnesia 30 Ml Oral.Susp) 30 ml PO DAILY PRN PRN Reason: Constipation Melatonin (Melatonin 3 Mg Tablet) 6 mg PO BEDTIME PRN PRN Reason: Insomnia Ondansetron HCl (Ondansetron Hcl 4 Mg/2 Ml Vial) 4 mg IVPUSH Q8H PRN PRN Reason: Nausea and Vomiting Pharmacy Consult (Consult Rx Vancomycin Dosing) 1 each MISCELLANE DAILY PRN PRN Reason: Consult order Sodium Chloride (0.9 % Sodium Chloride Flush 3 Ml Syringe) 3 ml IVFLUSH QSHIFT [facility] Last Admin: 06/15/24 07:21 Dose: Not Given Documented By: KINDRA Non-Admin Reason: Previously Administered Sodium Chloride (Sodium Chloride 3 % Inhalation 15 Ml Vial.Neb) 4 ml INHALE ONCE ONE Stop: 06/15/24 16:01 Sodium Chloride (Sodium Chloride 3 % Inhalation 15 Ml Vial.Neb) 4 ml INHALE ONCE ONE Stop: 06/16/24 16:01 Labs 06/15/24 06:00 06/15/24 06:00 Labs: Laboratory Results - last 24 hr 06/14/24 06/15/24 06/15/24 11:04 06:00 07:14 MCV 92.1 MCH 30.5 MCHC 33.1 RDW 13.2 Plt Count 236 MPV 9.6 Immature Gran % (Auto) 0.5 H Neut % (Auto) 79.8 H Lymph % (Auto) 12.0 L [place] % (Auto) 6.8 Eos % (Auto) 0.4 Baso % (Auto) 0.5 Lymph # (Auto) 1.8 [place] # (Auto) 1.0 Eos # (Auto) 0.1 Baso # (Auto) 0.1 Abs Immat Gran (auto) 0.07 H Absolute Neuts (auto) 12.1 H Absolute Nucleated RBC 0.000 Nucleated RBC % (auto) 0.0 Smear Path Review SEE NOTE Estim Creat Clear Calc 114.2 Estimated GFR > 60 Urine Color Yellow Urine Appearance Clear Urine pH 5.5 Ur Specific [place] >= 1.030 H Urine Protein Negative Urine Glucose (UA) Negative Urine Ketones Negative Urine Blood Negative Urine Nitrite Negative Ur Leukocyte Esterase Negative Hepatitis A IgM Ab Nonreactive Hep Bs Antigen Negative Hep Bs Antibody NONREACTIVE Hep B Core Total Ab Nonreactive Hepatitis C Ab (EIA) Nonreactive HIV 1&2 Ab/P24 Ag 4thGn Nonreactive Microbiology Microbiology Results: Microbiology 06/14/24 11:04 Blood Culture - Preliminary Blood - Venous No growth after 24 hours. 06/14/24 11:04 Blood Culture - Preliminary Blood - Venous No growth after 24 hours. Assessment and Plan (1) Pneumonia: Status: Acute (2) Acute hypoxic respiratory failure: Status: Acute (3) Hypoxia: Status: Acute Plan 59-year-old male with no reported significant PMH, has not follow up with PCP in 5+ years, recently stopped smoking after [id number] [id number] who presents to the ED with?increasing SOB, difficulty breathing, productive cough, and fatigue x1 month. Pt will be admitted to the hospital for treatment and further evaluation of acute hypoxic respiratory failure in the setting of multifocal pneumonia with sepsis concerning for pulmonary abscesses/cavitary lesions. Acute hypoxic respiratory failure in the setting of multifocal pneumonia with sepsis Persistent SOB, productive cough, oxygen 92% on 2 L CTA showing extensive bilateral airspace and ground-glass opacities with superimposed multifocal abscesses and/or cavitary lesions Failed outpatient therapy started on 06/01/2024 with levofloxacin x5 days, doxycycline x10 days Persistent leukocytosis due to steroids/PCT 0.07/CRP 2.97 Continue IV vancomycin and cefepime, started 06/14/2024, has unknown allergy to penicillin Continue DuoNebs, guaifenesin and DC IV Solu Medrol Titrate supplemental O2 >92, wean as tolerated Case discussed with Dr. Calloway he recommend to continue treatment for pneumonia, patient has underlying emphysema with bullae filled with fluid,He recommend 3 weeks of Vantin upon discharge and outpatient follow-up with pulmonology ?TB Given extensive active disease, symptoms x1 month, concern for cavitary lesions, and recent weight loss will rule out TB Acid-fast stain sputum cultures x3/MTB Rifampin PCR routine ordered. hepatits panel, HIV nonreactive. Isolation, airborne precautions ID consult pend Nicotine dependence 44+ pack year hx, Recently quit after walk in clinic visit on 06/01/2024 NTR prn Full Code DVT Prophylaxis: Lovenox Pt. will require continued inpatient hospitalization for treatment of?acute hypoxic respiratory failure in the setting of multifocal pneumonia with sepsis with concerns for pulmonary abscesses/cavitary lesions on iv abx need expert consulatation. Quality Stroke Does the patient have a stroke diagnosis?: No VTE Prior VTE?: No VTE Risk Level:: Medical - moderate - high VTE Device Contraindication: Treatment Not Indicated VTE Drug Contraindication: N/A - Med Ordered
--- NOTE | 2024-06-15 15:08 | PM.CNPUL ---
History of Present Illness History of Present Illness Consult date: 06/15/24 Chief complaint: Pneumonia w/hypoxia, TB r/o Narrative: 59-year-old gentleman, recent 30+ pack-year smoker admitted on 06/14/2024 with hypoxia and multifocal pneumonia with early abscess formation. Patient treated with empiric antibiotics and supplemental oxygen with some improvement. Review of Systems Constitutional: Constitutional: Denies daytime sleepiness, Denies excessive sweating, Denies fatigue, Denies fever(s), Denies lethargy, Denies malaise, Denies night sweats, Denies snoring and Denies weight loss Eyes: Eyes: Denies blurry vision and Denies itchy eyes ENT: Denies nasal congestion, Denies post nasal drip, Denies sinus pain, Denies sinus pressure and Denies other ( Thrush) Cardiovascular: Cardiovascular: Denies chest pain, Denies pedal edema, Reports dyspnea, Reports dyspnea on exertion, Denies orthopnea and Denies paroxysmal nocturnal dyspnea Respiratory: Respiratory: Denies cough, Denies hemoptysis, Denies excessive phlegm production, Reports dyspnea, Reports dyspnea on exertion, Denies snoring and Denies wheezing Gastrointestinal: Gastrointestinal: Denies abdominal pain and Denies heartburn Musculoskeletal: Musculoskeletal: Denies myalgias, Denies arthralgias and Denies joint swelling Integumentary/Breasts: Skin/Breast: Denies rash Neurologic: Denies memory loss and Denies seizure-like activity Psychiatric: Psychiatric: Denies abnormal sleep pattern, Denies anxiety and Denies memory loss Endocrine: Endocrine: Denies excessive sweating, Denies fatigue and Denies heat intolerance Hematologic/Lymphatic: Hematologic/Lymphatic: Denies easy bruising Allergic/Immunologic: Allergic/Immunologic: Denies itchy eyes, Denies seasonal rhinorrhea and Denies wheezing PMFSH Past Medical History Medical History Acute respiratory disease Wheezing on auscultation Cough Family History Family History Father Lung cancer Mother Unknown family medical history Social History Social History Alcohol intake: former Patient Tobacco Use Status: Current everyday Tobacco user Smoked in Last 30 Days: No Use of substances other than those prescribed or required for medical reasons: No Advance Directives: No Advance Directives Information Provided: Yes Do you have a plan to hurt others: No Plan service: No Meds Allergies Allergy/AdvReac Type Severity Reaction Status Date / Time penicillin G Allergy Unknown unknown Verified 06/14/24 10:46 penicillin V Allergy Unknown unknown Verified 06/14/24 10:46 reaction Penicillins [PENICILLINS] Allergy Unknown UNKNOWN Verified 06/14/24 10:46 Active Medications: Current Medications Acetaminophen (Acetaminophen 325 Mg Tablet) 650 mg PO Q6H PRN PRN Reason: Pain, Mild 1-3,fever,headache Albuterol/Ipratropium (Albuterol/Iprat 2.5/0.5mg 3 Ml Ampul.Neb) 3 ml INHALE RQ4H WHILE AWAKE [facility] Last Admin: 06/15/24 12:03 Dose: 3 ml Albuterol/Ipratropium (Albuterol/Iprat 2.5/0.5mg 3 Ml Ampul.Neb) 3 ml INHALE RQ4H WHILE AWAKE PRN PRN Reason: Shortness of Breath/Wheezing Last Admin: 06/15/24 02:21 Dose: 3 ml Calcium Carbonate (Calcium Carbonate 750 Mg Tab.Chew) 750 mg PO Q4H PRN PRN Reason: Heartburn Enoxaparin Sodium (Enoxaparin Sodium 40 Mg/0.4 Ml Syringe) 40 mg SUBCUT Q24H [facility] Last Admin: 06/14/24 16:27 Dose: 40 mg Guaifenesin/Codeine Phosphate (Guaifen/Codeine Sf 200/20/10ml 10 Ml Liquid) 10 ml PO Q4H PRN PRN Reason: Cough Guaifenesin/Dextromethorphan (Guaifenesin Dm 200/20/10 Ml 10 Ml Syrup) 10 ml PO TID [facility] Cefepime HCl (Maxipime) 2 gm in 50 mls @ 100 mls/hr IV Q8H [facility] Last Infusion: 06/15/24 11:20 Dose: Infused Vancomycin HCl 1,000 mg/ (Sodium Chloride) 270 mls @ 270 mls/hr IV Q12H [facility] Last Infusion: 06/15/24 05:44 Dose: Infused Magnesium Hydroxide (Milk Of Magnesia 30 Ml Oral.Susp) 30 ml PO DAILY PRN PRN Reason: Constipation Melatonin (Melatonin 3 Mg Tablet) 6 mg PO BEDTIME PRN PRN Reason: Insomnia Nicotine Polacrilex (Nicotine Polacrilex Lozenge 2 Mg Lozenge) 2 mg BUCCAL Q2H PRN PRN Reason: Nicotine Cravings Ondansetron HCl (Ondansetron Hcl 4 Mg/2 Ml Vial) 4 mg IVPUSH Q8H PRN PRN Reason: Nausea and Vomiting Pharmacy Consult (Consult Rx Vancomycin Dosing) 1 each MISCELLANE DAILY PRN PRN Reason: Consult order Sodium Chloride (0.9 % Sodium Chloride Flush 3 [facility]l [facility]) [facility] Admin: 06/15/24 07:21 Dose: Not Given Sodium Chloride (Sodium Chloride 3 % Inhalation 15 Ml Vial.Neb) 4 ml INHALE ONCE ONE Stop: 06/15/24 16:01 Sodium Chloride (Sodium Chloride 3 % Inhalation 15 Ml Vial.Neb) 4 ml INHALE ONCE ONE Stop: 06/16/24 16:01 Home Medications ?Medication ?Instructions ?Recorded ?Confirmed ?Last Taken ?Type albuterol sulfate 90 mcg/actuation 2 puff inhalation Q6H PRN 06/14/24 06/14/24 Unknown History aerosol inhaler shortness of breath or wheezing ibuprofen 400 mg tablet 400 mg PO Q8H PRN Pain 06/14/24 06/14/24 Unknown History Physical Exam Vital Signs: Vital Signs: Last Vital Signs Temp 98.3 F 06/15/24 10:42 Pulse 65 06/15/24 12:04 Resp 15 06/15/24 12:04 BP 119/62 06/15/24 10:42 Pulse Ox 92 06/15/24 10:45 O2 Del Method Nasal Cannula 06/15/24 10:45 O2 Flow Rate 5 06/15/24 10:45 BMI result Body Mass Index 20.8 Const: General: no acute distress and alert Nutritional Appearance: not obese Orientation/consciousness: Other orientation findings ( oriented) HEENT: Head: Yes atraumatic Eyes: General: appearance normal, both eyes and all related structures Sclerae: sclerae normal EOM: EOMs intact bilaterally Neck: Neck: Yes supple Lymphatic: no lymphadenopathy noted Resp: Effort & Inspection: normal respiratory effort and no use of accessory muscles Auscultation: clear to auscultation bilaterally Cardio: Rate: regular rate Rhythm: regular rhythm Heart sounds: no gallops, no murmurs and no rubs Skin: General skin exam: other ( warm) Extrem: General: No clubbing, No cyanosis and No edema Results Laboratory Findings 06/15/24 06:00 06/15/24 06:00 Abnormal lab findings: Abnormal Labs 06/14/24 06/14/24 06/15/24 11:04 11:10 06:00 WBC 12.2 H 15.1 H RBC 6.69 H Hgb 20.8 H Hct 60.5 H 52.2 H Immature Gran % (Auto) 0.7 H 0.5 H Neut % (Auto) 79.8 H Lymph % (Auto) 16.5 L 12.0 L Abs Immat Gran (auto) 0.08 H 0.07 H Absolute Neuts (auto) 8.9 H 12.1 H VBG HCO3 27 H C-Reactive Protein 2.97 H Ur Specific [place] 06/15/24 07:14 WBC RBC Hgb Hct Immature Gran % (Auto) Neut % (Auto) Lymph % (Auto) Abs Immat Gran (auto) Absolute Neuts (auto) VBG HCO3 C-Reactive Protein Ur Specific [place] >= 1.030 H Microbiology: Microbiology 06/14/24 11:04 Blood - Venous Blood Culture - Preliminary No growth after 24 hours. 06/14/24 11:04 Blood - Venous Blood Culture - Preliminary No growth after 24 hours. Assessment and Plan (1) Pneumonia: Status: Acute (2) Abscess of lung with pneumonia: Qualifiers: Laterality: left Lung location: lower lobe of lung Qualified Code(s): J85.1 - Abscess of lung with pneumonia Status: Acute Plan Impression: 59-year-old gentleman with underlying significant emphysema admitted with multifocal pneumonia with early abscess formation requiring supplemental oxygen. Recommendations: Agree with empiric broad-spectrum antibiotics. TB unlikely. Unless MRSA positive will require total of four-week of antibiotics, suggest Vantin as an outpatient. Outpatient pulmonary follow-up. Procedures Date of Service Date of Service: 06/15/24
[2024-06-15 15:45] LABS: Vancomycin Random 11.2 mcg/mL (15-20)
--- NOTE | 2024-06-15 15:54 | HE.PHANOTE ---
RE: VANCO DOSING Trough came back as 11.2 mg/L. Aware that it's only after 2 doses but still would like level to be higher due to indication. Dose is increased to 1250 mg q12h,next trough is scheduled for 06/16/24 @1500.
--- NOTE | 2024-06-15 16:55 | P.CNID_ITS ---
History of Present Illness Data of Consult Service Date: 06/08/24 Requesting physician: Gasper Duarte Primary Care Provider: None Physician HPI Reason for consult: lung abscess possible He presents with fever for cough and shortness of breath for last week. He has CT scan cavities and pneumonia. He denies TB history or positive testing. Review of Systems 2 Review of Systems: Yes all other systems are reviewed and are negative PMF Past Medical History Medical History Acute respiratory disease Wheezing on auscultation Cough Family History Family History Father Lung cancer Mother Unknown family medical history Family history: reviewed and not pertinent Social History Social History Alcohol intake: former Patient Tobacco Use Status: Current everyday Tobacco user Smoked in Last 30 Days: No Use of substances other than those prescribed or required for medical reasons: No Advance Directives: No Advance Directives Information Provided: Yes Do you have a plan to hurt others: No Plan service: No Meds Allergies Allergy/AdvReac Type Severity Reaction Status Date / Time penicillin G Allergy Unknown unknown Verified 06/14/24 10:46 penicillin V Allergy Unknown unknown Verified 06/14/24 10:46 reaction Penicillins [PENICILLINS] Allergy Unknown UNKNOWN Verified 06/14/24 10:46 Active Medications: Current Medications Acetaminophen (Acetaminophen 325 Mg Tablet) 650 mg PO Q6H PRN PRN Reason: Pain, Mild 1-3,fever,headache Albuterol/Ipratropium (Albuterol/Iprat 2.5/0.5mg 3 Ml Ampul.Neb) 3 ml INHALE RQ4H WHILE AWAKE [facility] Last Admin: 06/15/24 15:14 Dose: 3 ml Albuterol/Ipratropium (Albuterol/Iprat 2.5/0.5mg 3 Ml Ampul.Neb) 3 ml INHALE RQ4H WHILE AWAKE PRN PRN Reason: Shortness of Breath/Wheezing Last Admin: 06/15/24 02:21 Dose: 3 ml Calcium Carbonate (Calcium Carbonate 750 Mg Tab.Chew) 750 mg PO Q4H PRN PRN Reason: Heartburn Enoxaparin Sodium (Enoxaparin Sodium 40 Mg/0.4 Ml Syringe) 40 mg SUBCUT Q24H [facility] Last Admin: 06/14/24 16:27 Dose: 40 mg Guaifenesin/Codeine Phosphate (Guaifen/Codeine Sf 200/20/10ml 10 Ml Liquid) 10 ml PO Q4H PRN PRN Reason: Cough Guaifenesin/Dextromethorphan (Guaifenesin Dm 200/20/10 Ml 10 Ml Syrup) 10 ml PO TID [facility] Cefepime HCl (Maxipime) 2 gm in 50 mls @ 100 mls/hr IV Q8H [facility] Last Infusion: 06/15/24 11:20 Dose: Infused Vancomycin HCl 1,250 mg/ (Sodium Chloride) 250 mls @ 166.667 mls/hr IV Q12H [facility] Magnesium Hydroxide (Milk Of Magnesia 30 Ml Oral.Susp) 30 ml PO DAILY PRN PRN Reason: Constipation Melatonin (Melatonin 3 Mg Tablet) 6 mg PO BEDTIME PRN PRN Reason: Insomnia Nicotine Polacrilex (Nicotine Polacrilex Lozenge 2 Mg Lozenge) 2 mg BUCCAL Q2H PRN PRN Reason: Nicotine Cravings Ondansetron HCl (Ondansetron Hcl 4 Mg/2 Ml Vial) 4 mg IVPUSH Q8H PRN PRN Reason: Nausea and Vomiting Pharmacy Consult (Consult Rx Vancomycin Dosing) 1 each MISCELLANE DAILY PRN PRN Reason: Consult order Sodium Chloride (0.9 % Sodium Chloride Flush 3 Ml Syringe) 3 ml IVFLUSH QSHIFT [facility] Last Admin: 06/15/24 07:21 Dose: Not Given Sodium Chloride (Sodium Chloride 3 % Inhalation 15 Ml Vial.Neb) 4 ml INHALE ONCE ONE Stop: 06/16/24 16:01 Home Medications ?Medication ?Instructions ?Recorded ?Confirmed ?Last Taken ?Type albuterol sulfate 90 mcg/actuation 2 puff inhalation Q6H PRN 06/14/24 06/14/24 Unknown History aerosol inhaler shortness of breath or wheezing ibuprofen 400 mg tablet 400 mg PO Q8H PRN Pain 06/14/24 06/14/24 Unknown History Physical Exam 2 Vital Signs: Vital Signs: Last Vital Signs Temp 98.3 F 06/15/24 10:42 Pulse 91 06/15/24 15:16 Resp 16 06/15/24 15:16 BP 119/62 06/15/24 10:42 Pulse Ox 92 06/15/24 10:45 O2 Del Method Nasal Cannula 06/15/24 10:45 O2 Flow Rate 5 06/15/24 10:45 BMI result Body Mass Index 20.8 Const: General: cooperative HEENT: Head: Yes normal to inspection Face and sinus: Yes normal facial exam Mouth: Normal oral and palatal mucosa present Teeth and gingiva: d entition normal Eyes: General: appearance normal, both eyes and all related structures P upils: Equal, round and reactive pupils present Resp: Other: rhonchi bases Cardio: Rate: regular rate Rhythm: regular rhythm GI: Palpation (GI): Soft to palpation and nontender : General: Yes no CVA tenderness Back/Spine/Pelvis: Back: no CVA tenderness Skin: General skin exam: no rashes or lesions noted Neuro: General: moves all extremities Cranial nerves: Yes Equal, round and reactive pupils present Extrem: General: Yes normal to inspection Psych: Appearance: grossly normal Results Labs 06/15/24 06:00 06/15/24 06:00 Labs: Short CBC 06/15/24 Range/Units 06:00 WBC 15.1 H (4.8-10.8) X10*3/uL Hgb 17.3 (14.0-18.0) g/dl Hct 52.2 H (42.0-52.0) % Plt Count 236 (160-400) X10*3/uL BMP 06/15/24 06:00 Creatinine 0.64 Urine 06/15/24 Range/Units 07:14 Urine Color Yellow Urine Appearance Clear Urine pH 5.5 (5.0-9.0) Ur Specific [place] >= 1.030 H (1.005-1.025) Urine Protein Negative (Neg-Trace) mg/dL Urine Glucose (UA) Negative (Negative) mg/dL Microbiology Microbiology Results: Microbiology 06/14/24 11:04 Blood - Venous Blood Culture - Preliminary No growth after 24 hours. 06/14/24 11:04 Blood - Venous Blood Culture - Preliminary No growth after 24 hours. Assessment and Plan (1) Pneumonia: Status: Acute (2) Acute hypoxic respiratory failure: Status: Acute (3) Abscess of lung with pneumonia: Qualifiers: Laterality: left Lung location: lower lobe of lung Qualified Code(s): J85.1 - Abscess of lung with pneumonia Status: Acute Plan Would continue Cefepime and Vancomycin and stop Vancomycin if nares negative. Consider add flagyl. Can check T spot. When better with oxygen levels then po Augmentin or cephalosporin for 14 d but check if MRSA nares as well as Legionella and may need to adjust antibiotics. Low suspicion for TB
[2024-06-15] MEDS: guaiFENesin DM 200/20/10 ML 10 ML SYRUP PO ×2 (17:47→21:52)
[2024-06-15] MEDS: Enoxaparin Sodium 40 MG/0.4 ML SYRINGE SUBCUT (17:47)
[2024-06-15] MEDS: vancomycin HCL 1,250 MG in 0.9 % Sodium Chloride 250 ML 166.67 MG IV (19:48)
[2024-06-16] VITALS (9 sets, daily range): BP systolic 102–131; BP diastolic 56–79; PULSE 62–93; RESP 16–20; TEMP 36.1–36.8; O2SAT 88–92
[2024-06-16] MEDS: cefEPime HCl/D5W 2 GM/50 ML PIGGYBACK IV ×3 (03:37→20:39)
[2024-06-16] MEDS: vancomycin HCL 1,250 MG in 0.9 % Sodium Chloride 250 ML 166.67 MG IV (06:16)
[2024-06-16 06:58] LABS: Creatinine Clr Calc Pharmacy 101.5; Estimated Glomerular Filt Rate > 60
[2024-06-16] MEDS: Albuterol/Iprat 2.5/0.5MG 3 ML AMPUL.NEB INHALE ×3 (08:16→19:45)
[2024-06-16] MEDS: Sodium Chloride 3 % Inhalation 15 ML VIAL.NEB 4 ML INHALE (08:16)
[2024-06-16] MEDS: guaiFENesin DM 200/20/10 ML 10 ML SYRUP PO ×3 (09:50→20:23)
--- NOTE | 2024-06-16 09:50 | P.PNIM_ITS ---
Subjective Subjective Date of Service: 06/16/24 Interval History: Being followed for bilateral pneumonia with sepsis Feeling better, still complaining of shortness of breath and productive cough, denies fever, no chills, tolerating diet, no other acute events overnight. Review of Systems All other system reviewed and are negative. Physical Exam 2 Vital Signs: Vital Signs: Last Vital Signs Temp 97.2 F 06/16/24 07:44 Pulse 75 06/16/24 08:16 Resp 16 06/16/24 08:16 BP 127/79 06/16/24 07:44 Pulse Ox 90 L 06/16/24 07:44 O2 Del Method Nasal Cannula 06/16/24 07:44 O2 Flow Rate 6 06/16/24 07:44 BMI result Body Mass Index 20.8 Const: Other: General awake alert x3, in no acute distress. Anicteric sclera Neck no JVD. CVS regular rate rhythm, Respiratory lungs bilateral rhonchi, no respiratory distress. Gastrointestinal abdomen soft, non tender, bowel sounds audible. Extremities no edema. Neuro non focal Skin no rash Appropriate affect Objective Data Active Medications Acetaminophen (Acetaminophen 325 Mg Tablet) 650 mg PO Q6H PRN PRN Reason: Pain, Mild 1-3,fever,headache Albuterol/Ipratropium (Albuterol/Iprat 2.5/0.5mg 3 Ml Ampul.Neb) 3 ml INHALE RQ4H WHILE AWAKE [facility] Last Admin: 06/16/24 08:16 Dose: 3 ml Documented By: CHANEL Albuterol/Ipratropium (Albuterol/Iprat 2.5/0.5mg 3 Ml Ampul.Neb) 3 ml INHALE RQ4H WHILE AWAKE PRN PRN Reason: Shortness of Breath/Wheezing Last Admin: 06/15/24 02:21 Dose: 3 ml Documented By: CHANELL Calcium Carbonate (Calcium Carbonate 750 Mg Tab.Chew) 750 mg PO Q4H PRN PRN Reason: Heartburn Enoxaparin Sodium (Enoxaparin Sodium 40 Mg/0.4 Ml Syringe) 40 mg SUBCUT Q24H [facility] Last Admin: 06/15/24 17:47 Dose: 40 mg Documented By: KINDRA Guaifenesin/Codeine Phosphate (Guaifen/Codeine Sf 200/20/10ml 10 Ml Liquid) 10 ml PO Q4H PRN PRN Reason: Cough Guaifenesin/Dextromethorphan (Guaifenesin Dm 200/20/10 Ml 10 Ml Syrup) 10 ml PO TID [facility] Last Admin: 06/15/24 21:52 Dose: 10 ml Documented By: CHANDA Cefepime HCl (Maxipime) 2 gm in 50 mls @ 100 mls/hr IV Q8H [facility] Last Infusion: 06/16/24 04:07 Dose: Infused Documented By: CHANDA Vancomycin HCl 1,250 mg/ (Sodium Chloride) 250 mls @ 166.667 mls/hr IV Q12H [facility] Last Admin: 06/16/24 06:16 Dose: 166.67 mls/hr Documented By: CHANDA Magnesium Hydroxide (Milk Of Magnesia 30 Ml Oral.Susp) 30 ml PO DAILY PRN PRN Reason: Constipation Melatonin (Melatonin 3 Mg Tablet) 6 mg PO BEDTIME PRN PRN Reason: Insomnia Nicotine Polacrilex (Nicotine Polacrilex Lozenge 2 Mg Lozenge) 2 mg BUCCAL Q2H PRN PRN Reason: Nicotine Cravings Ondansetron HCl (Ondansetron Hcl 4 Mg/2 Ml Vial) 4 mg IVPUSH Q8H PRN PRN Reason: Nausea and Vomiting Pharmacy Consult (Consult Rx Vancomycin Dosing) 1 each MISCELLANE DAILY PRN PRN Reason: Consult order Sodium Chloride (0.9 % Sodium Chloride Flush 3 Ml Syringe) [facility] Last Admin: 06/15/24 21:52 Dose: 3 ml Documented By: CHANDA Sodium Chloride (Sodium Chloride 3 % Inhalation 15 Ml Vial.Neb) 4 ml INHALE ONCE ONE Stop: 06/16/24 16:01 Last Admin: 06/16/24 08:16 Dose: 4 ml Documented By: CHANEL Labs 06/15/24 06:00 06/16/24 06:26 Labs: Laboratory Results - last 24 hr 06/15/24 06/16/24 15:21 06:26 Hold Purple Top SEE NOTE Estim Creat Clear Calc 101.5 Estimated GFR > 60 Random Vancomycin 11.2 L Microbiology Microbiology Results: Microbiology 06/14/24 11:04 Blood Culture - Preliminary Blood - Venous No growth after 24 hours. 03/09/25 11:04 Blood Culture - Preliminary Blood - Venous No growth after 24 hours. Assessment and Plan (1) Acute hypoxic respiratory failure: Status: Acute (2) Pneumonia: Status: Acute Plan 59-year-old male with no reported significant PMH, has not follow up with PCP in 5+ years, recently stopped smoking after [id number] hx who presents to the ED with?increasing SOB, difficulty breathing, productive cough, and fatigue x1 month. Pt will be admitted to the hospital for treatment and further evaluation of acute hypoxic respiratory failure in the setting of multifocal pneumonia with sepsis concerning for pulmonary abscesses/cavitary lesions. Acute hypoxic respiratory failure in the setting of multifocal pneumonia with sepsis and lung abscess Failed outpatient therapy started on 06/01/2024 with levofloxacin x5 days, doxycycline x10 days Persistent leukocytosis due to steroids/PCT 0.07/CRP 2.97 Continue IV vancomycin and cefepime, started 06/14/2024, has unknown allergy to penicillin. Added flagyl 06/16 as per ID recs Continue DuoNebs, guaifenesin and DC IV Solu Medrol Titrate supplemental O2 >92, wean as tolerated Case discussed with Dr. Calloway he recommend to continue treatment for pneumonia, patient has underlying emphysema with bullae filled with fluid,He recommend 3 weeks of Vantin upon discharge and outpatient follow-up with pulmonology MRSA naal screen and legionella pending ?TB Given extensive active disease, symptoms x1 month, concern for cavitary lesions, and recent weight loss will rule out TB Acid-fast stain sputum cultures x3/MTB Rifampin PCR routine ordered. hepatits panel, HIV nonreactive. Isolation, airborne precautions ID consult> low suspicion. T spot pending Nicotine dependence 44+ pack year hx, Recently quit after walk in clinic visit on 06/01/2024 NTR prn Full Code DVT Prophylaxis: Lovenox Reason for continued hospitalization: Supplemental oxygen and IV antibiotics Quality Stroke Does the patient have a stroke diagnosis?: No VTE Prior VTE?: No VTE Risk Level:: Medical - moderate - high VTE Device Contraindication: Treatment Not Indicated VTE Drug Contraindication: N/A - Med Ordered
[2024-06-16] MEDS: 0.9 % Sodium Chloride Flush 3 ML SYRINGE IVFLUSH ×3 (09:51→20:23)
[2024-06-16] MEDS: metroNIDAZOLE/NS 500 MG/100 ML PIGGYBACK 100 MG IV ×2 (11:17→20:22)
--- NOTE | 2024-06-16 12:12 | MHC.CM.PN ---
Per rounds, pt. is not ready to DC, he requires tx with IV ABX and supplemental O2, currently at 6L, and he is not on home O2. CM to follow for DC needs.
[2024-06-16 15:38] LABS: Vancomycin Random 19.8 mcg/mL (15-20)
[2024-06-16] MEDS: Enoxaparin Sodium 40 MG/0.4 ML SYRINGE SUBCUT (16:38)
[2024-06-16] MEDS: vancomycin HCL 750 MG in 0.9 % Sodium Chloride 250 ML 265 MG IV (17:38)
[2024-06-17] VITALS (10 sets, daily range): BP systolic 100–114; BP diastolic 58–73; PULSE 58–90; RESP 16–20; TEMP 36.3–36.7; O2SAT 90–93
[2024-06-17] MEDS: metroNIDAZOLE/NS 500 MG/100 ML PIGGYBACK 100 MG IV ×3 (03:12→17:32)
[2024-06-17] MEDS: cefEPime HCl/D5W 2 GM/50 ML PIGGYBACK IV ×3 (04:19→21:55)
[2024-06-17] MEDS: vancomycin HCL 750 MG in 0.9 % Sodium Chloride 250 ML 265 MG IV (05:58)
[2024-06-17 06:22] LABS: MANUAL DIFF FLAG NO
[2024-06-17 06:26] LABS: Basophils Absolute Auto 0.1 X10*3/uL (0.0-0.2); Basophils Percent Auto 0.7 % (0-2); Eosinophils Absolute Auto 0.3 X10*3/uL (0.0-0.4); Eosinophils Percent Auto 2.7 % (0-4); Hemoglobin 18.6 g/dl (14.0-18.0); Imm Gran Abs Auto 0.07 X10*3/uL (0.00-0.03); Imm Gran Pct Auto 0.6 % (0.0-0.4); Lymphocytes Absolute Auto 1.7 X10*3/uL (1.2-4.9); Lymphocytes Percent Auto 15.3 % (20-40); Mean Corpuscular HGB Conc 32.7 g/dl (31.0-36.0); Mean Corpuscular Hemoglobin 30.4 pg (27.0-33.0); Mean Platelet Volume 9.1 fL (9.4-12.4); Monocytes Absolute Auto 0.8 X10*3/uL (0.1-1.2); Monocytes Percent Auto 7.1 % (2-11); Neutrophils Absolute Auto 8.3 x10*3/uL (2.0-8.3); Neutrophils Percent Auto 73.6 % (45-73); Platelet Count 258 X10*3/uL (160-400); Red Blood Count 6.11 X10*6/uL (4.60-5.80); Red Cell Distribution Width 13.5 % (11.0-16.0); White Blood Count 11.3 X10*3/uL (4.8-10.8)
[2024-06-17 06:38] LABS: Anion Gap 12 (12-20); Blood Urea Nitrogen 12 mg/dL (9-16); Calcium 8.7 mg/dL (8.4-10.2); Carbon Dioxide 25 mmol/L (22-29); Chloride 107 mmol/L (96-108); Creatinine Clr Calc Pharmacy 101.5; Estimated Glomerular Filt Rate > 60; Glucose Random 89 mg/dL (60-115); Potassium 4.1 mmol/L (3.3-5.1); Sodium 140 mmol/L (135-145)
[2024-06-17 07:05] LABS: Hematocrit 56.8 % (42.0-52.0)
--- NOTE | 2024-06-17 07:31 | PC.NURSE ---
Patient sating 89-90% at 8pm on 6L NC, placed on 7L garcia. Around 10pm patient continuing to sat at 89% upped to 9L on garcia sating 91-92%.
[2024-06-17] MEDS: guaiFENesin DM 200/20/10 ML 10 ML SYRUP PO ×2 (08:29→21:55)
[2024-06-17 08:41] LABS: MRSA Nasal PCR NEGATIVE (Negative); SA Nasal PCR NEGATIVE (Negative)
--- NOTE | 2024-06-17 09:00 | HO.PM.IMPN ---
Subjective Subjective Date of Service: 06/17/24 Interval History: Being followed for bilateral pneumonia with sepsis Feeling better, still complaining of shortness of breath and productive cough, denies fever, no chills, tolerating diet. Currently on 9L/min supplemental oxygen Review of Systems All other system reviewed and are negative. Physical Exam Vital Signs: Vital Signs: Last Vital Signs Temp 97.4 F 06/17/24 07:58 Pulse 64 06/17/24 07:58 Resp 20 06/17/24 07:58 BP 107/73 06/17/24 07:58 Pulse Ox 91 L 06/17/24 07:58 O2 Del Method Nasal Cannula 06/17/24 07:58 O2 Flow Rate 9 06/17/24 07:58 BMI result Body Mass Index 20.8 Const: Other: General awake alert x3, in no acute distress. Anicteric sclera Neck no JVD. CVS regular rate rhythm, Respiratory lungs bilateral rhonchi, no respiratory distress. Gastrointestinal abdomen soft, non tender, bowel sounds audible. Extremities no edema. Neuro non focal Skin no rash Appropriate affect Objective Data Active Medications Acetaminophen (Acetaminophen 325 Mg Tablet) 650 mg PO Q6H PRN PRN Reason: Pain, Mild 1-3,fever,headache Albuterol/Ipratropium (Albuterol/Iprat 2.5/0.5mg 3 Ml Ampul.Neb) 3 ml INHALE RQ4H WHILE AWAKE [facility] Last Admin: 06/17/24 07:50 Dose: Not Given Documented By: URI Non-Admin Reason: Patient Asleep Albuterol/Ipratropium (Albuterol/Iprat 2.5/0.5mg 3 Ml Ampul.Neb) 3 ml INHALE RQ4H WHILE AWAKE PRN PRN Reason: Shortness of Breath/Wheezing Last Admin: 06/15/24 02:21 Dose: 3 ml Documented By: CHANELL Calcium Carbonate (Calcium Carbonate 750 Mg Tab.Chew) 750 mg PO Q4H PRN PRN Reason: Heartburn Enoxaparin Sodium (Enoxaparin Sodium 40 Mg/0.4 Ml Syringe) 40 mg SUBCUT Q24H [facility] Last Admin: 06/16/24 16:38 Dose: 40 mg Documented By: BREANNA Guaifenesin/Codeine Phosphate (Guaifen/Codeine Sf 200/20/10ml 10 Ml Liquid) 10 ml PO Q4H PRN PRN Reason: Cough Guaifenesin/Dextromethorphan (Guaifenesin Dm 200/20/10 Ml 10 Ml Syrup) 10 ml PO TID [facility] Last Admin: 06/17/24 08:29 Dose: 10 ml Documented By: KEMAR Cefepime HCl (Maxipime) 2 gm in 50 mls @ 100 mls/hr IV Q8H [facility] Last Infusion: 06/17/24 05:10 Dose: Infused Documented By: LES Metronidazole (Flagyl) 500 mg in 100 mls @ 100 mls/hr IV Q8H [facility] Last Infusion: 06/17/24 04:20 Dose: Infused Documented By: LES Vancomycin HCl 750 mg/ Sodium (Chloride) 265 mls @ 265 mls/hr IV Q12H [facility] Last Infusion: 06/17/24 07:12 Dose: Infused Documented By: LES Magnesium Hydroxide (Milk Of Magnesia 30 Ml Oral.Susp) 30 ml PO DAILY PRN PRN Reason: Constipation Melatonin (Melatonin 3 Mg Tablet) 6 mg PO BEDTIME PRN PRN Reason: Insomnia Nicotine Polacrilex (Nicotine Polacrilex Lozenge 2 Mg Lozenge) 2 mg BUCCAL Q2H PRN PRN Reason: Nicotine Cravings Ondansetron HCl (Ondansetron Hcl 4 Mg/2 Ml Vial) 4 mg IVPUSH Q8H PRN PRN Reason: Nausea and Vomiting Pharmacy Consult (Consult Rx Vancomycin Dosing) 1 each MISCELLANE DAILY PRN PRN Reason: Consult order Sodium Chloride (0.9 % Sodium Chloride Flush 3 Ml Syringe) 3 ml IVFLUSH QSHIFT [facility] Last Admin: 06/17/24 08:35 Dose: Not Given Documented By: KEMAR Non-Admin Reason: IV Running Labs 06/17/24 05:56 06/17/24 05:56 Labs: Laboratory Results - last 24 hr 06/16/24 06/17/24 06/17/24 15:11 05:56 07:20 MCV 93.0 MCH 30.4 MCHC 32.7 RDW 13.5 Plt Count 258 MPV 9.1 L Immature Gran % (Auto) 0.6 H Neut % (Auto) 73.6 H Lymph % (Auto) 15.3 L [place] % (Auto) 7.1 Eos % (Auto) 2.7 Baso % (Auto) 0.7 Lymph # (Auto) 1.7 [place] # (Auto) 0.8 Eos # (Auto) 0.3 Baso # (Auto) 0.1 Abs Immat Gran (auto) 0.07 H Absolute Neuts (auto) 8.3 Absolute Nucleated RBC 0.000 Nucleated RBC % (auto) 0.0 Anion Gap 12 Estim Creat Clear Calc 101.5 Estimated GFR > 60 Random Glucose 89 Calcium 8.7 D Nasal Screen MRSA (PCR) NEGATIVE Nasal S. aureus Screen NEGATIVE Nasal MRSA/S.aureus Interp SEE NOTE Random Vancomycin 19.8 Microbiology Microbiology Results: Microbiology 06/14/24 11:04 Blood Culture - Preliminary Blood - Venous No growth after 48 hours. 06/14/24 11:04 Blood Culture - Preliminary Blood - Venous No growth after 48 hours. Assessment and Plan (1) Acute hypoxic respiratory failure: Status: Acute (2) Pneumonia: Status: Acute Plan 59-year-old male with no reported significant PMH, has not follow up with PCP in 5+ years, recently stopped smoking after [id number] hx who presents to the ED with?increasing SOB, difficulty breathing, productive cough, and fatigue x1 month. Pt will be admitted to the hospital for treatment and further evaluation of acute hypoxic respiratory failure in the setting of multifocal pneumonia with sepsis concerning for pulmonary abscesses/cavitary lesions. Acute hypoxic respiratory failure in the setting of multifocal pneumonia with sepsis and lung abscess Failed outpatient therapy started on 06/01/2024 with levofloxacin x5 days, doxycycline x10 days Continue IV cefepime, started 06/14/2024. Added flagyl 06/16 as per ID recs. Vancomycin (06/14-06/17), d/c'ed as MRSA nasal screen negative Titrate supplemental O2 >92, wean as tolerated Case discussed with Dr. Calloway he recommend to continue treatment for pneumonia, patient has underlying emphysema with bullae filled with fluid,He recommend 3 weeks of Vantin upon discharge and outpatient follow-up with pulmonology MRSA nasal screen neagtive. Legionella pending ?TB Given extensive active disease, symptoms x1 month, concern for cavitary lesions, and recent weight loss will rule out TB Acid-fast stain sputum cultures x3/MTB Rifampin. PCR routine ordered. hepatits panel, HIV nonreactive. Isolation, airborne precautions ID consult> low suspicion. T spot pending Nicotine dependence 44+ pack year hx, Recently quit after walk in clinic visit on 06/01/2024 NTR prn Erythrocytosis, secondary due to tobacco use Full Code DVT Prophylaxis: Lovenox Reason for continued hospitalization: Supplemental oxygen and IV antibiotics Quality Stroke Does the patient have a stroke diagnosis?: No VTE Prior VTE?: No VTE Risk Level:: Medical - moderate - high VTE Device Contraindication: Treatment Not Indicated VTE Drug Contraindication: N/A - Med Ordered
[2024-06-17] MEDS: Albuterol/Iprat 2.5/0.5MG 3 ML AMPUL.NEB INHALE ×2 (11:44→20:32)
[2024-06-17 12:44] LABS: MTB M. tuberculosis Complex NOT DETECTED (NOT DETECTED); Rifampin Resistance NOT TESTED (NOT DETECTED)
[2024-06-17 15:13] LABS: Vancomycin Random 14.8 mcg/mL (15-20)
[2024-06-17] MEDS: Enoxaparin Sodium 40 MG/0.4 ML SYRINGE SUBCUT (15:40)
[2024-06-17] MEDS: 0.9 % Sodium Chloride Flush 3 ML SYRINGE IVFLUSH ×2 (15:40→21:55)
--- NOTE | 2024-06-17 16:54 | PM.EVENT ---
Event Note Date of Service: 06/17/24 Event Note: RECOVERY SPECIALIST called for desaturation and resp distress on ambulation, recovered to 90s on 15L Time Spent With Patient Time: Total time managing care of this patient today ____ minutes.
[2024-06-17] MEDS: Azithromycin 500 MG in 0.9 % Sodium Chloride 250 ML 125 MG IV (17:31)
[2024-06-18] VITALS (8 sets, daily range): BP systolic 101–115; BP diastolic 64–75; PULSE 66–90; RESP 18–20; TEMP 36.3–37.4; O2SAT 89–95
[2024-06-18] MEDS: metroNIDAZOLE/NS 500 MG/100 ML PIGGYBACK 100 MG IV ×3 (01:06→18:58)
[2024-06-18] MEDS: cefEPime HCl/D5W 2 GM/50 ML PIGGYBACK IV ×3 (04:15→21:11)
[2024-06-18 06:35] LABS: Creatinine Clr Calc Pharmacy 104.4; Estimated Glomerular Filt Rate > 60
[2024-06-18] MEDS: Albuterol/Iprat 2.5/0.5MG 3 ML AMPUL.NEB INHALE ×4 (07:53→19:59)
[2024-06-18] MEDS: guaiFENesin DM 200/20/10 ML 10 ML SYRUP PO ×3 (08:02→21:11)
--- NOTE | 2024-06-18 09:22 | HO.PM.IMPN ---
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 Currently on 7L/min supplemental oxygen Review of Systems All other system reviewed and are negative. Review of Systems: Yes all other systems are reviewed and are negative Physical Exam Vital Signs: Vital Signs: Last Vital Signs Temp 97.6 F 06/18/24 07:21 Pulse 74 06/18/24 07:53 Resp 20 06/18/24 07:53 BP 101/75 06/18/24 07:21 Pulse Ox 92 06/18/24 07:21 O2 Del Method Oxymask 06/18/24 07:21 O2 Flow Rate 7 06/18/24 07:21 BMI result Body Mass Index 20.8 Const: Other: General awake alert x3, in no acute distress. Anicteric sclera Neck no JVD. CVS regular rate rhythm, Respiratory lungs bilateral rhonchi, no respiratory distress. Gastrointestinal abdomen soft, non tender, bowel sounds audible. Extremities no edema. Neuro non focal Skin no rash Appropriate affect Objective Data Active Medications Acetaminophen (Acetaminophen 325 Mg Tablet) 650 mg PO Q6H PRN PRN Reason: Pain, Mild 1-3,fever,headache Albuterol/Ipratropium (Albuterol/Iprat 2.5/0.5mg 3 Ml Ampul.Neb) 3 ml INHALE RQ4H WHILE AWAKE [facility] [place] Last Admin: 06/18/24 07:53 Dose: 3 ml Documented By: URI Albuterol/Ipratropium (Albuterol/Iprat 2.5/0.5mg 3 Ml Ampul.Neb) 3 ml INHALE RQ4H WHILE AWAKE PRN PRN Reason: Shortness of Breath/Wheezing Last Admin: 06/15/24 02:21 Dose: 3 ml Documented By: CHANELL Calcium Carbonate (Calcium Carbonate 750 Mg Tab.Chew) 750 mg PO Q4H PRN PRN Reason: Heartburn Enoxaparin Sodium (Enoxaparin Sodium 40 Mg/0.4 Ml Syringe) 40 mg SUBCUT Q24H [facility] [place] Last Admin: 06/17/24 15:40 Dose: 40 mg Documented By: DAREK Guaifenesin/Codeine Phosphate (Guaifen/Codeine Sf 200/20/10ml 10 Ml Liquid) 10 ml PO Q4H PRN PRN Reason: Cough Guaifenesin/Dextromethorphan (Guaifenesin Dm 200/20/10 Ml 10 Ml Syrup) 10 ml PO TID [facility] [place] Last Admin: 06/18/24 08:02 Dose: 10 ml Documented By: RAFA Cefepime HCl (Maxipime) 2 gm in 50 mls @ 100 mls/hr IV Q8H [facility] [place] Last Infusion: 06/18/24 04:55 Dose: Infused Documented By: LES Metronidazole (Flagyl) 500 mg in 100 mls @ 100 mls/hr IV Q8H [facility] [place] Last Infusion: 06/18/24 02:06 Dose: Infused Documented By: LES Azithromycin 500 mg/ Sodium (Chloride) 250 mls @ 125 mls/hr IV Q24H [facility] [place] Last Infusion: 06/17/24 19:58 Dose: Infused Documented By: LES Magnesium Hydroxide (Milk Of Magnesia 30 Ml Oral.Susp) 30 ml PO DAILY PRN PRN Reason: Constipation Melatonin (Melatonin 3 Mg Tablet) 6 mg PO BEDTIME PRN PRN Reason: Insomnia Nicotine Polacrilex (Nicotine Polacrilex Lozenge 2 Mg Lozenge) 2 mg BUCCAL Q2H PRN PRN Reason: Nicotine Cravings Ondansetron HCl (Ondansetron Hcl 4 Mg/2 Ml Vial) 4 mg IVPUSH Q8H PRN PRN Reason: Nausea and Vomiting Sodium Chloride (0.9 % Sodium Chloride Flush 3 Ml Syringe) 3 ml IVFLUSH QSHIFT [facility] [place] Last Admin: 06/18/24 08:03 Dose: Not Given Documented By: RAFA Non-Admin Reason: IV Running Labs 06/17/24 05:56 06/18/24 05:57 Labs: Laboratory Results - last 24 hr 06/16/24 06/17/24 06/18/24 10:25 14:57 05:57 Estim Creat Clear Calc 104.4 Estimated GFR > 60 Random Vancomycin 14.8 L M.tuberculosis DNA (PCR) NOT DETECTED MTB Rifampin Resis PCR NOT TESTED Assessment and Plan (1) Acute hypoxic respiratory failure: Status: Acute (2) Abscess of lung with pneumonia: Status: Acute Plan 59-year-old male with no reported significant PMH, has not follow up with PCP in 5+ years, recently stopped smoking after [id number] hx who presents to the ED with?increasing SOB, difficulty breathing, productive cough, and fatigue x1 month. Pt will be admitted to the hospital for treatment and further evaluation of acute hypoxic respiratory failure in the setting of multifocal pneumonia with sepsis concerning for pulmonary abscesses/cavitary lesions. Acute hypoxic respiratory failure in the setting of multifocal pneumonia with sepsis and lung abscess Failed outpatient therapy started on 06/01/2024 with levofloxacin x5 days, doxycycline x10 days Continue IV cefepime, started 06/14/2024. Added flagyl (to cover anaerobes) 06/16 and azithromycin (to cover atypicals) 06/17 as per ID recs due to ongoing hypoxia. Vancomycin (06/14-06/17), d/c'ed as MRSA nasal screen negative Titrate supplemental O2 >92, wean as tolerated. Repeat imaging if hypoxia doesnt improve Case discussed with Dr. Calloway he recommend to continue treatment for pneumonia, patient has underlying emphysema with bullae filled with fluid,He recommend 3 weeks of Vantin upon discharge and outpatient follow-up with pulmonology MRSA nasal screen neagtive. Legionella and T spot pending. hepatits panel, HIV nonreactive. Nicotine dependence 44+ pack year hx, Recently quit after walk in clinic visit on 06/01/2024 NTR prn Erythrocytosis, secondary due to tobacco use Full Code DVT Prophylaxis: Lovenox Reason for continued hospitalization: Supplemental oxygen and IV antibiotics Quality Stroke Does the patient have a stroke diagnosis?: No VTE Prior VTE?: No VTE Risk Level:: Medical - moderate - high VTE Device Contraindication: Treatment Not Indicated VTE Drug Contraindication: N/A - Med Ordered
[2024-06-18] MEDS: Throat Lozenge, Medicated LOZENGE 1 LOZENGE MUCOUS MEM (09:34)
[2024-06-18] MEDS: Azithromycin 500 MG in 0.9 % Sodium Chloride 250 ML 125 MG IV (16:40)
[2024-06-18] MEDS: Enoxaparin Sodium 40 MG/0.4 ML SYRINGE SUBCUT (16:40)
[2024-06-18] MEDS: 0.9 % Sodium Chloride Flush 3 ML SYRINGE IVFLUSH ×2 (16:50→21:14)
[2024-06-19] VITALS (8 sets, daily range): BP systolic 105–126; BP diastolic 66–79; PULSE 79–117; RESP 18–20; TEMP 36.2–36.8; O2SAT 89–93
[2024-06-19] MEDS: metroNIDAZOLE/NS 500 MG/100 ML PIGGYBACK IV (02:45)
[2024-06-19] MEDS: cefEPime HCl/D5W 2 GM/50 ML PIGGYBACK IV ×3 (04:14→20:25)
[2024-06-19 05:46] LABS: MANUAL DIFF FLAG NO
[2024-06-19 05:54] LABS: Basophils Absolute Auto 0.1 X10*3/uL (0.0-0.2); Basophils Percent Auto 0.8 % (0-2); Eosinophils Absolute Auto 0.3 X10*3/uL (0.0-0.4); Eosinophils Percent Auto 1.9 % (0-4); Hemoglobin 19.3 g/dl (14.0-18.0); Imm Gran Abs Auto 0.08 X10*3/uL (0.00-0.03); Imm Gran Pct Auto 0.6 % (0.0-0.4); Lymphocytes Absolute Auto 1.2 X10*3/uL (1.2-4.9); Lymphocytes Percent Auto 8.7 % (20-40); Mean Corpuscular HGB Conc 32.7 g/dl (31.0-36.0); Mean Corpuscular Hemoglobin 30.2 pg (27.0-33.0); Mean Corpuscular Volume 92.3 fL (80.0-98.0); Monocytes Absolute Auto 0.9 X10*3/uL (0.1-1.2); Monocytes Percent Auto 6.8 % (2-11); Neutrophils Absolute Auto 11.1 x10*3/uL (2.0-8.3); Neutrophils Percent Auto 81.2 % (45-73); Platelet Count 248 X10*3/uL (160-400); Red Blood Count 6.39 X10*6/uL (4.60-5.80); Red Cell Distribution Width 13.5 % (11.0-16.0); White Blood Count 13.7 X10*3/uL (4.8-10.8)
[2024-06-19 06:03] LABS: Anion Gap 15 (12-20); Blood Urea Nitrogen 12 mg/dL (9-16); Calcium 9.3 mg/dL (8.4-10.2); Carbon Dioxide 22 mmol/L (22-29); Chloride 104 mmol/L (96-108); Creatinine Clr Calc Pharmacy 98.7; Estimated Glomerular Filt Rate > 60; Glucose Random 107 mg/dL (60-115); Sodium 137 mmol/L (135-145)
[2024-06-19] MEDS: Calcium Carbonate 750 MG TAB.CHEW PO ×2 (08:23→12:02)
[2024-06-19] MEDS: metroNIDAZOLE/NS 500 MG/100 ML PIGGYBACK 100 MG IV ×2 (08:23→17:44)
[2024-06-19] MEDS: 0.9 % Sodium Chloride Flush 3 ML SYRINGE IVFLUSH ×2 (08:24→15:32)
[2024-06-19] MEDS: ondansetron HCL 4 MG/2 ML VIAL IVPUSH (08:25)
[2024-06-19] MEDS: Albuterol/Iprat 2.5/0.5MG 3 ML AMPUL.NEB INHALE ×2 (11:23→15:32)
[2024-06-19] MEDS: Omeprazole 20 MG CAPSULE.DR PO (12:02)
--- NOTE | 2024-06-19 12:11 | P.PNIM_ITS ---
Subjective Subjective Date of Service: 06/19/24 Interval History: Complaining of cough productive copious amount of clear to light yellow phlegm, complaining of heartburn, mostly in bed, remains hypoxic requiring OxyMask. Denies fever, no chills, tolerating diet with no nausea, no vomiting or diarrhea. Review of Systems All other system reviewed and are negative Physical Exam 2 Vital Signs: Vital Signs: Last Vital Signs Temp 97.8 F 06/19/24 07:55 Pulse 95 06/19/24 11:23 Resp 20 06/19/24 11:23 BP 114/79 06/19/24 07:55 Pulse Ox 92 06/19/24 07:55 O2 Del Method Oxymask 06/19/24 07:55 O2 Flow Rate 5 06/19/24 07:55 BMI result Body Mass Index 20.8 Const: Other: General awake alert x3, in no acute distress. Anicteric sclera Neck no JVD. CVS regular rate rhythm, Respiratory lungs persistent bilateral rhonchi, no respiratory distress. Gastrointestinal abdomen soft, non tender, bowel sounds audible. Extremities no edema. Neuro non focal Skin no rash Appropriate affect Objective Data Active Medications Acetaminophen (Acetaminophen 325 Mg Tablet) 650 mg PO Q6H PRN PRN Reason: Pain, Mild 1-3,fever,headache Al Hydroxide/Mg Hydroxide (Magnesium Hydrox/Alum Hydrox 30 Ml Oral.Susp) 30 ml PO Q6H PRN PRN Reason: heartburn Albuterol/Ipratropium (Albuterol/Iprat 2.5/0.5mg 3 Ml Ampul.Neb) 3 ml INHALE RQ4H WHILE AWAKE [facility] Last Admin: 06/19/24 11:23 Dose: 3 ml Documented By: CHANEL Albuterol/Ipratropium (Albuterol/Iprat 2.5/0.5mg 3 Ml Ampul.Neb) 3 ml INHALE RQ4H WHILE AWAKE PRN PRN Reason: Shortness of Breath/Wheezing Last Admin: 06/15/24 02:21 Dose: 3 ml Documented By: CHANELL Benzocaine (Throat Lozenge, Medicated Lozenge) 1 lozenge MUCOUS MEM Q2H PRN PRN Reason: Sore Throat Last Admin: 06/18/24 09:34 Dose: 1 lozenge Documented By: RAFA Calcium Carbonate (Calcium Carbonate 750 Mg Tab.Chew) 750 mg PO Q4H PRN PRN Reason: Heartburn Last Admin: 06/19/24 12:02 Dose: 750 mg Documented By: ALVINA Enoxaparin Sodium (Enoxaparin Sodium 40 Mg/0.4 Ml Syringe) 40 mg SUBCUT Q24H [facility] Last Admin: 06/18/24 16:40 Dose: 40 mg Documented By: TAMI Guaifenesin/Codeine Phosphate (Guaifen/Codeine Sf 200/20/10ml 10 Ml Liquid) 10 ml PO Q4H PRN PRN Reason: Cough Guaifenesin/Dextromethorphan (Guaifenesin Dm 200/20/10 Ml 10 Ml Syrup) 10 ml PO TID [facility] Last Admin: 06/19/24 08:24 Dose: Not Given Documented By: ALVINA Non-Admin Reason: Patient Refused Cefepime HCl (Maxipime) 2 gm in 50 mls @ 100 mls/hr IV Q8H [facility] Last Admin: 06/19/24 12:02 Dose: 100 mls/hr Documented By: ALVINA Metronidazole (Flagyl) 500 mg in 100 mls @ 100 mls/hr IV Q8H [facility] Last Infusion: 06/19/24 09:23 Dose: Infused Documented By: ALVINA Azithromycin 500 mg/ Sodium (Chloride) 250 mls @ 125 mls/hr IV Q24H [facility] Last Infusion: 06/18/24 18:46 Dose: Infused Documented By: TAMI Magnesium Hydroxide (Milk Of Magnesia 30 Ml Oral.Susp) 30 ml PO DAILY PRN PRN Reason: Constipation Melatonin (Melatonin 3 Mg Tablet) 6 mg PO BEDTIME PRN PRN Reason: Insomnia Nicotine Polacrilex (Nicotine Polacrilex Lozenge 2 Mg Lozenge) 2 mg BUCCAL Q2H PRN PRN Reason: Nicotine Cravings Omeprazole (Omeprazole 20 Mg Capsule.Dr) 20 mg PO DAILY@0630 [facility] Last Admin: 06/19/24 12:02 Dose: 20 mg Documented By: ALVINA Ondansetron HCl (Ondansetron Hcl 4 Mg/2 Ml Vial) 4 mg IVPUSH Q8H PRN PRN Reason: Nausea and Vomiting Last Admin: 06/19/24 08:25 Dose: 4 mg Documented By: ALVINA Sodium Chloride (0.9 % Sodium Chloride Flush 3 Ml Syringe) 3 ml IVFLUSH QSHIFT [facility] Last Admin: 06/19/24 08:24 Dose: 3 ml Documented By: ALVINA Labs 06/19/24 05:40 06/19/24 05:40 Labs: Laboratory Results - last 24 hr 06/19/24 05:40 MCV 92.3 MCH 30.2 MCHC 32.7 RDW 13.5 Plt Count 248 MPV 9.0 L Immature Gran % (Auto) 0.6 H Neut % (Auto) 81.2 H Lymph % (Auto) 8.7 L [place] % (Auto) 6.8 Eos % (Auto) 1.9 Baso % (Auto) 0.8 Lymph # (Auto) 1.2 [place] # (Auto) 0.9 Eos # (Auto) 0.3 Baso # (Auto) 0.1 Abs Immat Gran (auto) 0.08 H Absolute Neuts (auto) 11.1 H Absolute Nucleated RBC 0.000 Nucleated RBC % (auto) 0.0 Anion Gap 15 Estim Creat Clear Calc 98.7 Estimated GFR > 60 Random Glucose 107 Calcium 9.3 D Microbiology Microbiology Results: Microbiology 06/14/24 16:08 Direct Acid Fast Bacilli Smear - Final Sputum - Expectorated 06/16/24 03:15 Direct Acid Fast Bacilli Smear - Final Sputum - Expectorated 06/16/24 10:30 Direct Acid Fast Bacilli Smear - Final Sputum - Expectorated Assessment and Plan (1) Pneumonia: Status: Acute (2) Acute hypoxic respiratory failure: Status: Acute (3) Abscess of lung with pneumonia: Status: Acute (4) Hypoxia: Status: Acute Plan 59-year-old male with no reported significant PMH, has not follow up with PCP in 5+ years, recently stopped smoking after [id number] hx who presents to the ED with?increasing SOB, difficulty breathing, productive cough, and fatigue x1 month. Pt will be admitted to the hospital for treatment and further evaluation of acute hypoxic respiratory failure in the setting of multifocal pneumonia with sepsis concerning for pulmonary abscesses/cavitary lesions. Acute hypoxic respiratory failure in the setting of multifocal pneumonia with sepsis and lung abscess. Failed outpatient therapy started on 06/01/2024 with levofloxacin x5 days, doxycycline x10 days Continue IV cefepime, started 06/14/2024. Added flagyl (to cover anaerobes) 06/16 and azithromycin (to cover atypicals) 06/17 as per ID recs due to ongoing hypoxia. Vancomycin (06/14-06/17), d/c'ed as MRSA nasal screen negative Titrate supplemental O2 >92, wean as tolerated. Repeat imaging if hypoxia doesnt improve Case discussed with Dr. Calloway he recommend to continue treatment for pneumonia, patient has underlying emphysema with bullae filled with fluid,He recommend 3 weeks of Vantin upon discharge and outpatient follow-up with pulmonology Legionella and T spot pending. hepatits panel, HIV nonreactive. MycobacteriumTB DNA negative ID recommends 14 days of Augmentin or Ceftin Recommend out of bed to chair and ambulation as tolerated Heartburn likely due to gastritis Prilosec 20 mg daily/Maalox as needed Nicotine dependence 44+ pack year hx, Recently quit after walk in clinic visit on 06/01/2024 NTR prn Erythrocytosis, secondary likely due to tobacco use, will consult hematology Full Code DVT Prophylaxis: Lovenox Reason for continued hospitalization: Supplemental oxygen and IV antibiotics Quality Stroke Does the patient have a stroke diagnosis?: No VTE Prior VTE?: No VTE Risk Level:: Medical - moderate - high VTE Device Contraindication: Treatment Not Indicated VTE Drug Contraindication: N/A - Med Ordered
--- NOTE | 2024-06-19 12:55 | P.CNHO_ITS ---
Subjective - Subjective Chief complaint: Cough Patient: new to practice Consult date: 06/19/24 Requesting Physician: Dr. Duarte Primary Care Provider: None Physician Customer Supply Coordinator Utilized?: No - Frisian Speaking HPI - Consult Narrative Reason for consult: Erythrocytosis Narrative: Mani Reynolds is a 59 year old male with no reported significant PMH, who presents to the ED with?increasing SOB, difficulty breathing, productive cough, and fatigue x1 month. No fever or chills. No night sweats. Initially presented to walk-in clinic on 06/01/2023 where he was treated for pneumonia and prescribed levofloxacin and doxycycline. Pt reports symptoms improved while he was on antibiotics, though after completing prescription symptoms returned and worsened. Reports he has lost 15 lb in the last month, has chest tightness associated with deep breathing and chest pain associated with cough. No recent travel. No sick contacts. Pt reports stopped smoking after walk-in clinic visit In the ED pt with elevated heart of 93, tachypnea of 22, and hypoxia as low as 86% on RA. Labs were significant for leukocytosis 12.2, H&H 20.8/60.5, and CRP 2.97. No electrolyte abnormalities. Renal function WNL. Lactic acid WNL. Hepatic function WNL. Initial troponin 4.7. BNP WNL at 50. Tested negative for flu, RSV, COVID. CXR showed extensive left greater than right multifocal pneumonitis. CTA of chest negative for PE but showing extensive bilateral airspace and ground-glass opacities, left greater than right, consistent with inflammatory or infectious process. Also showed superimposed multifocal air- fluid levels in left lung concerning for multifocal abscesses and/or cavitary lesions with superimposed infection. EKG demonstrated normal sinus rhythm without evidence of significant ST elevations or depressions. Pt was treated with Mag sulfate, Solu-Medrol, DuoNeb, IVF, cefepime, and vancomycin. Pt will be admitted to the hospital for treatment and further evaluation of acute hypoxic respiratory failure in the setting of multifocal pneumonia with sepsis concerning for pulmonary abscesses/cavitary lesions. Blood work revealed hematocrit between 58-60. He has had chronically elevated hematocrit but usually around 50%. He has never been told of any blood disorder, he has not undergone therapeutic phlebotomy in the past. He quit smoking in 05/2024 about 3 weeks back. Review of Systems - Constitutional Reports as per HPI, Reports fatigue, Reports malaise, Reports weight loss - Neurologic Denies memory loss, Denies seizure-like activity [facility] Medical History: Medical History (Last Reviewed 06/15/24 @ 16:56 by Jennifer Garcia MD) Acute respiratory disease Cough Wheezing on auscultation Family History: Family History (Last Reviewed 06/15/24 @ 16:56 by Jennifer Garcia MD) Father Lung cancer Mother Unknown family medical history Family history: reviewed and not pertinent Social History: Social History (Last Reviewed 06/15/24 @ 16:56 by Jennifer Garcia MD) Living Situation History: Household Members: Family Household Members Other:: mother and disabled brother Housing: Apartment Do you presently have visiting nurse or other home services: Yes Tobacco History: Patient Tobacco Use Status: Former Tobacco user Tobacco use type: Cigarette e-Cigarette/Vaping Use: Never Used Second Hand Smoke Exposure: No Occupation Assessmet: service: No Home Medications and Allergies Current Medications: Current Medications Acetaminophen (Acetaminophen 325 Mg Tablet) 650 mg PO Q6H PRN PRN Reason: Pain, Mild 1-3,fever,headache Al Hydroxide/Mg Hydroxide (Magnesium Hydrox/Alum Hydrox 30 Ml Oral.Susp) 30 ml PO Q6H PRN PRN Reason: heartburn Albuterol/Ipratropium (Albuterol/Iprat 2.5/0.5mg 3 Ml Ampul.Neb) 3 ml INHALE RQ4H WHILE AWAKE [facility] Last Admin: 06/19/24 11:23 Dose: 3 ml Albuterol/Ipratropium (Albuterol/Iprat 2.5/0.5mg 3 Ml Ampul.Neb) 3 ml INHALE RQ4H WHILE AWAKE PRN PRN Reason: Shortness of Breath/Wheezing Last Admin: 06/15/24 02:21 Dose: 3 ml Benzocaine (Throat Lozenge, Medicated Lozenge) 1 lozenge MUCOUS MEM Q2H PRN PRN Reason: Sore Throat Last Admin: 06/18/24 09:34 Dose: 1 lozenge Calcium Carbonate (Calcium Carbonate 750 Mg Tab.Chew) 750 mg PO Q4H PRN PRN Reason: Heartburn Last Admin: 06/19/24 12:02 Dose: 750 mg Enoxaparin Sodium (Enoxaparin Sodium 40 Mg/0.4 Ml Syringe) 40 mg SUBCUT Q24H [facility] Last Admin: 06/18/24 16:40 Dose: 40 mg Guaifenesin/Codeine Phosphate (Guaifen/Codeine Sf 200/20/10ml 10 Ml Liquid) 10 ml PO Q4H PRN PRN Reason: Cough Guaifenesin/Dextromethorphan (Guaifenesin Dm 200/20/10 Ml 10 Ml Syrup) 10 ml PO TID [facility] Last Admin: 06/19/24 08:24 Dose: Not Given Cefepime HCl (Maxipime) 2 gm in 50 mls @ 100 mls/hr IV Q8H [facility] Last Infusion: 06/19/24 12:33 Dose: Infused Metronidazole (Flagyl) 500 mg in 100 mls @ 100 mls/hr IV Q8H [facility] Last Infusion: 06/19/24 09:23 Dose: Infused Azithromycin 500 mg/ Sodium (Chloride) 250 mls @ 125 mls/hr IV Q24H [facility] Last Infusion: 06/18/24 18:46 Dose: Infused Magnesium Hydroxide (Milk Of Magnesia 30 Ml Oral.Susp) 30 ml PO DAILY PRN PRN Reason: Constipation Melatonin (Melatonin 3 Mg Tablet) 6 mg PO BEDTIME PRN PRN Reason: Insomnia Nicotine Polacrilex (Nicotine Polacrilex Lozenge 2 Mg Lozenge) 2 mg BUCCAL Q2H PRN PRN Reason: Nicotine Cravings Omeprazole (Omeprazole 20 Mg Capsule.Dr) 20 mg PO DAILY@0630 [facility] Last Admin: 06/19/24 12:02 Dose: 20 mg Ondansetron HCl (Ondansetron Hcl 4 Mg/2 Ml Vial) 4 mg IVPUSH Q8H PRN PRN Reason: Nausea and Vomiting Last Admin: 06/19/24 08:25 Dose: 4 mg Sodium Chloride (0.9 % Sodium Chloride Flush 3 Ml Syringe) 3 ml IVFLUSH QSHIFT [facility] Last Admin: 06/19/24 08:24 Dose: 3 ml Home Medications ?Medication ?Instructions ?Recorded ?Confirmed ?Type albuterol sulfate 90 mcg/actuation 2 puff inhalation Q6H PRN 06/14/24 06/14/24 History aerosol inhaler shortness of breath or wheezing ibuprofen 400 mg tablet 400 mg PO Q8H PRN Pain 06/14/24 06/14/24 History Allergies Allergy/AdvReac Type Severity Reaction Status Date / Time penicillin G Allergy Unknown unknown Verified 06/14/24 10:46 penicillin V Allergy Unknown unknown Verified 06/14/24 10:46 reaction Penicillins [PENICILLINS] Allergy Unknown UNKNOWN Verified 06/14/24 10:46 Physical Exam Vital signs: Vital Signs Temp 97.8 F 06/19/24 12:00 Pulse 117 H 06/19/24 12:00 Resp 20 06/19/24 12:00 BP 105/72 06/19/24 12:00 Pulse Ox 91 L 06/19/24 12:00 O2 Del Method Oxymask 06/19/24 12:00 O2 Flow Rate 7 06/19/24 12:00 Intake & Output 06/18/24 06/19/24 06/19/24 18:59 06:59 18:59 Intake Total 880 / 1180 300 / 1180 150 / 150 Output Total 300 / 650 350 / 650 Balance 580 / 530 -50 / 530 150 / 150 Urine Output (Average ml/kg/hr) 0.38 0.44 0.44 Intake: Intake, Oral Amount 480 / 480 Intake, IV Amount 400 / 700 300 / 700 150 / 150 Azithromycin 500 mg In 0.9 % 250 / 250 Sodium Chloride 250 ml @ 125 mls/hr IV Q24H [facility] Rx#: [id number] cefEPime HCl/D5W 2 gm In 50 ml 50 / 150 100 / 150 50 / 50 @ 100 mls/hr IV Q8H [facility] Rx#: [id number] metroNIDAZOLE/NS 500 mg In 100 100 / 300 200 / 300 100 / 100 ml @ 100 mls/hr IV Q8H [facility] Rx#: [id number] Output: Output, Urine Amount 300 / 650 350 / 650 Other: Meal Refused No NPO No Breakfast % Eaten 25% Lunch % Eaten 25% Dinner % Eaten 50% Eating (Feeding) Ability Independent Urine Urinal Urinal Urine Color Tea Yellow Last Bowel Movement 06/17/24 06/17/24 Weight 65.8 kg - Constitutional Present: no acute distress, thin - Routine HEENT Exam Head: Present: normal inspection Eye: Present: EOMI, PERRL - Routine Respiratory Exam Absent: accessory muscle use - Routine Cardiovascular Exam Cardiovascular: Present: S1, S2 - Routine Extremities Exam Absent: pedal edema - Routine Skin Exam Present: intact - Routine Neurological Exam Present: alert, oriented X3 Hem/Onc Consult Result - Labs CBC & Chem 7: 06/19/24 05:40 06/19/24 05:40 Labs: Short CBC 06/19/24 Range/Units 05:40 WBC 13.7 H (4.8-10.8) X10*3/uL Hgb 19.3 H (14.0-18.0) g/dl Hct 59.0 H (42.0-52.0) % Plt Count 248 (160-400) X10*3/uL BMP 06/19/24 05:40 Sodium 137 Potassium 4.0 Chloride 104 Carbon Dioxide 22 BUN 12 Creatinine 0.74 Calcium 9.3 D Assessment and Plan Patient Active problem list reviewed?: Yes (1) Erythrocytosis due to hypoxemia Status: Chronic Assessment and plan: 1. This is a 59-year-old male admitted with hypoxemic respiratory failure secondary to multifocal pneumonia was chronic erythrocytosis. This is probably secondary erythrocytosis secondary to hypoxemia, chronic smoking and underlying lung disease. Submit serum erythropoietin and JAK2 mutation. Therapeutic phlebotomy is recommended as his hematocrit is close to 60 which puts him at increased risk of thrombosis. Patient was advised to continue to abstain from smoking. He can follow-up with Hematology upon discharge. Thank you for the consultation. - Time Spent With Patient Time Spent with Patient (in minutes): 15
[2024-06-19] MEDS: Magnesium Hydrox/Alum Hydrox 30 ML ORAL.SUSP PO (15:32)
[2024-06-19] MEDS: Enoxaparin Sodium 40 MG/0.4 ML SYRINGE SUBCUT (15:32)
[2024-06-19] MEDS: Azithromycin 500 MG in 0.9 % Sodium Chloride 250 ML 125 MG IV (15:32)
[2024-06-19 17:14] LABS: TS Negative Control Passed; TS Panel A 0; TS Panel B 0; TS Positive Control Passed; TSpotTB Negative (Negative)
[2024-06-19] MEDS: guaiFENesin DM 200/20/10 ML 10 ML SYRUP PO (20:23)
[2024-06-20] VITALS (8 sets, daily range): BP systolic 118–141; BP diastolic 71–84; PULSE 84–111; RESP 18–23; TEMP 36.3–37.4; O2SAT 91–94
[2024-06-20] MEDS: metroNIDAZOLE/NS 500 MG/100 ML PIGGYBACK 100 MG IV ×3 (02:13→18:26)
[2024-06-20] MEDS: cefEPime HCl/D5W 2 GM/50 ML PIGGYBACK IV ×3 (03:21→20:10)
[2024-06-20] MEDS: Omeprazole 20 MG CAPSULE.DR PO ×2 (04:47→16:23)
[2024-06-20] MEDS: Calcium Carbonate 750 MG TAB.CHEW PO ×2 (09:13→12:51)
[2024-06-20] MEDS: 0.9 % Sodium Chloride Flush 3 ML SYRINGE IVFLUSH ×3 (09:13→20:20)
[2024-06-20] MEDS: ondansetron HCL 4 MG/2 ML VIAL IVPUSH (09:15)
--- NOTE | 2024-06-20 12:35 | HO.PM.IMPN ---
Subjective Subjective Date of Service: 06/20/24 Interval History: Complaining of persistent heartburn, cough productive of mucousy phlegm copious amount, denies fever, no chills Denies nausea vomiting or diarrhea. On 7 L OxyMask Review of Systems All other system reviewed and negative Physical Exam Vital Signs: Vital Signs: Last Vital Signs Temp 98.6 F 06/20/24 11:04 Pulse 86 06/20/24 11:04 Resp 20 06/20/24 11:04 BP 119/79 06/20/24 11:04 Pulse Ox 93 06/20/24 11:04 O2 Del Method Oxymask 06/20/24 11:04 O2 Flow Rate 7 06/20/24 11:04 BMI result Body Mass Index 20.8 Const: Other: General awake alert x3, in no acute distress. Anicteric sclera Neck no JVD. CVS regular rate rhythm, Respiratory lungs persistent bilateral rhonchi, no respiratory distress. Gastrointestinal abdomen soft, mild epigastric discomfort, non tender, bowel sounds audible. Extremities no edema. Neuro non focal Skin no rash Appropriate affect Objective Data Active Medications Acetaminophen (Acetaminophen 325 Mg Tablet) 650 mg PO Q6H PRN PRN Reason: Pain, Mild 1-3,fever,headache Al Hydroxide/Mg Hydroxide (Magnesium Hydrox/Alum Hydrox 30 Ml Oral.Susp) 30 ml PO Q6H PRN PRN Reason: heartburn Last Admin: 06/19/24 15:32 Dose: 30 ml Documented By: ALVINA Albuterol/Ipratropium (Albuterol/Iprat 2.5/0.5mg 3 Ml Ampul.Neb) 3 ml INHALE RQ4H WHILE AWAKE [facility] Last Admin: 06/20/24 11:16 Dose: Not Given Documented By: URI Non-Admin Reason: Patient Asleep Albuterol/Ipratropium (Albuterol/Iprat 2.5/0.5mg 3 Ml Ampul.Neb) 3 ml INHALE RQ4H WHILE AWAKE PRN PRN Reason: Shortness of Breath/Wheezing Last Admin: 06/15/24 02:21 Dose: 3 ml Documented By: CHANELL Benzocaine (Throat Lozenge, Medicated Lozenge) 1 lozenge MUCOUS MEM Q2H PRN PRN Reason: Sore Throat Last Admin: 06/18/24 09:34 Dose: 1 lozenge Documented By: RAFA Calcium Carbonate (Calcium Carbonate 750 Mg Tab.Chew) 750 mg PO Q4H PRN PRN Reason: Heartburn Last Admin: 06/20/24 09:13 Dose: 750 mg Documented By: ALVINA Enoxaparin Sodium (Enoxaparin Sodium 40 Mg/0.4 Ml Syringe) 40 mg SUBCUT Q24H [facility] Last Admin: 06/19/24 15:32 Dose: 40 mg Documented By: ALVINA Guaifenesin/Dextromethorphan (Guaifenesin Dm 200/20/10 Ml 10 Ml Syrup) 10 ml PO QID [facility] Cefepime HCl (Maxipime) 2 gm in 50 mls @ 100 mls/hr IV Q8H [facility] Last Admin: 06/20/24 11:04 Dose: 100 mls/hr Documented By: ALVINA Metronidazole (Flagyl) 500 mg in 100 mls @ 100 mls/hr IV Q8H [facility] Last Infusion: 06/20/24 10:13 Dose: Infused Documented By: ALVINA Azithromycin 500 mg/ Sodium (Chloride) 250 mls @ 125 mls/hr IV Q24H [facility] Last Infusion: 06/19/24 17:32 Dose: Infused Documented By: ALVIAN Magnesium Hydroxide (Milk Of Magnesia 30 Ml Oral.Susp) 30 ml PO DAILY PRN PRN Reason: Constipation Melatonin (Melatonin 3 Mg Tablet) 6 mg PO BEDTIME PRN PRN Reason: Insomnia Nicotine Polacrilex (Nicotine Polacrilex Lozenge 2 Mg Lozenge) 2 mg BUCCAL Q2H PRN PRN Reason: Nicotine Cravings Omeprazole (Omeprazole 20 Mg Capsule.Dr) 20 mg PO DAILY@0630 [facility] Last Admin: 06/20/24 04:47 Dose: 20 mg Documented By: JOHN PAUL Ondansetron HCl (Ondansetron Hcl 4 Mg/2 Ml Vial) 4 mg IVPUSH Q8H PRN PRN Reason: Nausea and Vomiting Last Admin: 06/20/24 09:15 Dose: 4 mg Documented By: ALVINA Sodium Chloride (0.9 % Sodium Chloride Flush 3 Ml Syringe) 3 ml IVFLUSH QSHIFT [facility] Last Admin: 06/20/24 09:13 Dose: 3 ml Documented By: ALVINA Labs 06/19/24 05:40 06/19/24 05:40 Labs: Laboratory Results - last 24 hr 06/16/24 10:18 TB Test (T-Spot) Com Negative TB Test Nil Control Passed TB Test Panel A 0 TB Test Panel B 0 TB Test Positive Cntrl Passed Microbiology Microbiology Results: Microbiology 06/14/24 11:04 Blood Culture - Final Blood - Venous No growth after 5 days. 06/14/24 11:04 Blood Culture - Final Blood - Venous No growth after 5 days. Assessment and Plan (1) 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 (2) Pneumonia: Status: Acute (3) Acute hypoxic respiratory failure: Status: Acute Plan 59-year-old male with no reported significant PMH, has not follow up with PCP in 5+ years, recently stopped smoking after [id number] hx who presents to the ED with?increasing SOB, difficulty breathing, productive cough, and fatigue x1 month. Pt will be admitted to the hospital for treatment and further evaluation of acute hypoxic respiratory failure in the setting of multifocal pneumonia with sepsis concerning for pulmonary abscesses/cavitary lesions. Acute hypoxic respiratory failure in the setting of multifocal pneumonia with sepsis and lung abscess. Failed outpatient therapy started on 06/01/2024 with levofloxacin x5 days, doxycycline x10 days Continue IV cefepime, started 06/14/2024. Added flagyl (to cover anaerobes) 06/16 and azithromycin (to cover atypicals) 06/17 as per ID recs due to ongoing hypoxia. Vancomycin (06/14-06/17), d/c'ed as MRSA nasal screen negative Titrate supplemental O2 >92, wean as tolerated. Repeat imaging if hypoxia doesnt improve Case discussed with Dr. Calloway he recommend to continue treatment for pneumonia, patient has underlying emphysema with bullae filled with fluid,He recommend 3 weeks of Vantin upon discharge and outpatient follow-up with pulmonology Legionella and T spot pending. hepatits panel, HIV nonreactive. MycobacteriumTB DNA negative ID recommends 7 days of IV antibiotics followed by po Augmentin or Ceftin Recommend out of bed to chair and ambulation as tolerated Scheduled cough medication qid Heartburn likely due to gastritis Persistent symptoms will increase Prilosec to 20 mg bid/Maalox as needed Nicotine dependence 44+ pack year hx, Recently quit after walk in clinic visit on 06/01/2024 NTR prn Erythrocytosis, secondary likely due to tobacco use, seen by Dr. Dean she recommended therapeutic phlebotomy due to increased risk of thrombosis however patient has to go to blood bank for treatment but currently under airborne precautions, recommend outpatient follow-up with Hematology, inform Dr. Dean that patient can not receive phlebotomy in house. Full Code DVT Prophylaxis: Lovenox Reason for continued hospitalization: Supplemental oxygen and IV antibiotics Quality Stroke Does the patient have a stroke diagnosis?: No VTE Prior VTE?: No VTE Risk Level:: Medical - moderate - high VTE Device Contraindication: Treatment Not Indicated VTE Drug Contraindication: N/A - Med Ordered
[2024-06-20] MEDS: Famotidine 20 MG TABLET PO (12:51)
[2024-06-20] MEDS: Albuterol/Iprat 2.5/0.5MG 3 ML AMPUL.NEB INHALE ×2 (15:05→19:09)
[2024-06-20] MEDS: Enoxaparin Sodium 40 MG/0.4 ML SYRINGE SUBCUT (16:23)
[2024-06-20] MEDS: Azithromycin 500 MG in 0.9 % Sodium Chloride 250 ML 125 MG IV (16:23)
[2024-06-20] MEDS: guaiFENesin DM 200/20/10 ML 10 ML SYRUP PO (20:21)
[2024-06-21] VITALS (9 sets, daily range): BP systolic 110–125; BP diastolic 63–80; PULSE 79–100; RESP 12–24; TEMP 36.1–36.8; O2SAT 91–94
[2024-06-21] MEDS: metroNIDAZOLE/NS 500 MG/100 ML PIGGYBACK 100 MG IV ×3 (01:56→18:16)
[2024-06-21] MEDS: cefEPime HCl/D5W 2 GM/50 ML PIGGYBACK IV ×3 (03:46→20:32)
[2024-06-21 06:19] LABS: Legionella Ag Urine Not Detected (Not Detected)
[2024-06-21] MEDS: Omeprazole 20 MG CAPSULE.DR PO ×2 (06:33→15:46)
[2024-06-21] MEDS: Albuterol/Iprat 2.5/0.5MG 3 ML AMPUL.NEB INHALE ×3 (07:44→19:30)
[2024-06-21] MEDS: 0.9 % Sodium Chloride Flush 3 ML SYRINGE IVFLUSH ×3 (09:13→20:32)
[2024-06-21] MEDS: ondansetron HCL 4 MG/2 ML VIAL IVPUSH (09:13)
[2024-06-21] MEDS: Calcium Carbonate 750 MG TAB.CHEW PO (09:13)
[2024-06-21] MEDS: guaiFENesin DM 200/20/10 ML 10 ML SYRUP PO ×2 (11:51→20:32)
--- NOTE | 2024-06-21 12:00 | P.PNIM_ITS ---
Subjective Subjective Date of Service: 06/21/24 Interval History: Being followed for hypoxic respiratory failure with multifocal pneumonia with sepsis and lung abscess Epigastric burning and discomfort resolved, persistent cough with copious clear white phlegm Persistent hypoxia on 7 L OxyMask, desaturate with eating and minimal activity Review of Systems All other system reviewed and are negative Physical Exam 2 Vital Signs: Vital Signs: Last Vital Signs Temp 97.0 F 06/21/24 07:59 Pulse 80 06/21/24 07:59 Resp 12 06/21/24 07:59 BP 125/75 06/21/24 07:59 Pulse Ox 92 06/21/24 07:59 O2 Del Method Nasal Cannula 06/21/24 07:59 O2 Flow Rate 6 06/21/24 07:59 BMI result Body Mass Index 20.8 Const: Other: General awake alert x3, in no acute distress. Anicteric sclera Neck no JVD. CVS regular rate rhythm, Respiratory lungs persistent bilateral rhonchi, no respiratory distress. Gastrointestinal abdomen soft, non tender, bowel sounds audible. Extremities no edema. Neuro non focal Skin no rash Appropriate affect Objective Data Active Medications Acetaminophen (Acetaminophen 325 Mg Tablet) 650 mg PO Q6H PRN PRN Reason: Pain, Mild 1-3,fever,headache Al Hydroxide/Mg Hydroxide (Magnesium Hydrox/Alum Hydrox 30 Ml Oral.Susp) 30 ml PO Q6H PRN PRN Reason: heartburn Last Admin: 06/19/24 15:32 Dose: 30 ml Documented By: ALVINA Albuterol/Ipratropium (Albuterol/Iprat 2.5/0.5mg 3 Ml Ampul.Neb) 3 ml INHALE RQ4H WHILE AWAKE PRN PRN Reason: Shortness of Breath/Wheezing Last Admin: 06/15/24 02:21 Dose: 3 ml Documented By: CHANELL Albuterol/Ipratropium (Albuterol/Iprat 2.5/0.5mg 3 Ml Ampul.Neb) 3 ml INHALE RQ6H WHILE AWAKE [facility] Last Admin: 06/21/24 07:44 Dose: 3 ml Documented By: CASSIUS Benzocaine (Throat Lozenge, Medicated Lozenge) 1 lozenge MUCOUS MEM Q2H PRN PRN Reason: Sore Throat Last Admin: 06/18/24 09:34 Dose: 1 lozenge Documented By: RAFA Calcium Carbonate (Calcium Carbonate 750 Mg Tab.Chew) 750 mg PO Q4H PRN PRN Reason: Heartburn Last Admin: 06/21/24 09:13 Dose: 750 mg Documented By: ALVINA Enoxaparin Sodium (Enoxaparin Sodium 40 Mg/0.4 Ml Syringe) 40 mg SUBCUT Q24H [facility] Last Admin: 06/20/24 16:23 Dose: 40 mg Documented By: ALVINA Guaifenesin/Dextromethorphan (Guaifenesin Dm 200/20/10 Ml 10 Ml Syrup) 10 ml PO QID [facility] Last Admin: 06/21/24 11:51 Dose: 10 ml Documented By: ALVINA Cefepime HCl (Maxipime) 2 gm in 50 mls @ 100 mls/hr IV Q8H [facility] Last Admin: 06/21/24 11:52 Dose: 100 mls/hr Documented By: ALVINA Metronidazole (Flagyl) 500 mg in 100 mls @ 100 mls/hr IV Q8H [facility] Last Infusion: 06/21/24 10:12 Dose: Infused Documented By: ALVINA Azithromycin 500 mg/ Sodium (Chloride) 250 mls @ 125 mls/hr IV Q24H [facility] Last Infusion: 06/20/24 18:23 Dose: Infused Documented By: ALVINA Magnesium Hydroxide (Milk Of Magnesia 30 Ml Oral.Susp) 30 ml PO DAILY PRN PRN Reason: Constipation Melatonin (Melatonin 3 Mg Tablet) 6 mg PO BEDTIME PRN PRN Reason: Insomnia Nicotine Polacrilex (Nicotine Polacrilex Lozenge 2 Mg Lozenge) 2 mg BUCCAL Q2H PRN PRN Reason: Nicotine Cravings Omeprazole (Omeprazole 20 Mg Capsule.Dr) 20 mg PO BID@0630,1630 [facility] Last Admin: 06/21/24 06:33 Dose: 20 mg Documented By: STEPHANIE Ondansetron HCl (Ondansetron Hcl 4 Mg/2 Ml Vial) 4 mg IVPUSH Q8H PRN PRN Reason: Nausea and Vomiting Last Admin: 06/21/24 09:13 Dose: 4 mg Documented By: ALVINA Sodium Chloride (0.9 % Sodium Chloride Flush 3 Ml Syringe) 3 ml IVFLUSH QSHIFT [facility] Last Admin: 06/21/24 09:13 Dose: 3 ml Documented By: ALVINA Labs 06/19/24 05:40 06/19/24 05:40 Labs: Laboratory Results - last 24 hr 06/17/24 11:06 Ur L.pneumophila Ag Not Detected Assessment and Plan (1) 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 (2) Pneumonia: Status: Acute (3) Acute hypoxic respiratory failure: Status: Acute (4) Abscess of lung with pneumonia: Status: Acute Plan 59-year-old male with no reported significant PMH, has not follow up with PCP in 5+ years, recently stopped smoking after [id number] hx who presents to the ED with?increasing SOB, difficulty breathing, productive cough, and fatigue x1 month. Pt will be admitted to the hospital for treatment and further evaluation of acute hypoxic respiratory failure in the setting of multifocal pneumonia with sepsis concerning for pulmonary abscesses/cavitary lesions. Acute hypoxic respiratory failure in the setting of multifocal pneumonia with sepsis and lung abscess. Failed outpatient therapy started on 06/01/2024 with levofloxacin x5 days, doxycycline x10 days Continue IV cefepime, started 06/14/2024. Added flagyl (to cover anaerobes) 06/16 and azithromycin (to cover atypicals) 06/17 as per ID recs due to ongoing hypoxia. Vancomycin (06/14-06/17), d/c'ed as MRSA nasal screen negative Titrate supplemental O2 >92, wean as tolerated. Case discussed with Dr. Calloway he recommend to continue treatment for pneumonia, patient has underlying emphysema with bullae filled with fluid,He recommend 3 weeks of Vantin upon discharge and outpatient follow-up with pulmonology Legionella and T spot neg. hepatits panel, HIV nonreactive. MycobacteriumTB DNA negative ID recommends 7 days of IV antibiotics followed by po Augmentin or Ceftin and recommend to continue airborne precautions Recommend out of bed to chair and ambulation as tolerated Scheduled cough medication qid Persistent hypoxia on 7 L with finger oximetry 89-90% reconsult pulmonology/repeat CT chest at a.m. Heartburn likely due to gastritis /reflux Added Prilosec to 20 mg bid/Maalox as needed, improving Nicotine dependence 44+ pack year hx, Recently quit after walk in clinic visit on 06/01/2024 NTR prn Erythrocytosis, likely due to tobacco use, seen by Dr. Dean she recommended therapeutic phlebotomy due to increased risk of thrombosis however patient has to go to blood bank for treatment but currently under airborne precautions, recommend outpatient follow-up with Hematology, erythropoietin level pending Full Code DVT Prophylaxis: Lovenox Reason for continued hospitalization: Supplemental oxygen and IV antibiotics Quality Stroke Does the patient have a stroke diagnosis?: No VTE Prior VTE?: No VTE Risk Level:: Medical - moderate - high VTE Device Contraindication: Treatment Not Indicated VTE Drug Contraindication: N/A - Med Ordered
[2024-06-21] MEDS: Enoxaparin Sodium 40 MG/0.4 ML SYRINGE SUBCUT (15:47)
[2024-06-21] MEDS: Azithromycin 500 MG in 0.9 % Sodium Chloride 250 ML 125 MG IV (15:59)
[2024-06-21] MEDS: Throat Lozenge, Medicated LOZENGE 1 LOZENGE MUCOUS MEM (18:16)
[2024-06-22] VITALS (10 sets, daily range): BP systolic 109–123; BP diastolic 71–75; PULSE 76–92; RESP 16–20; TEMP 36.1–37.4; O2SAT 90–93
[2024-06-22] MEDS: metroNIDAZOLE/NS 500 MG/100 ML PIGGYBACK 100 MG IV ×3 (01:40→17:29)
[2024-06-22] MEDS: ondansetron HCL 4 MG/2 ML VIAL IVPUSH ×2 (02:21→19:52)
[2024-06-22] MEDS: cefEPime HCl/D5W 2 GM/50 ML PIGGYBACK IV ×3 (04:16→19:43)
[2024-06-22] MEDS: Magnesium Hydrox/Alum Hydrox 30 ML ORAL.SUSP PO (04:26)
[2024-06-22] MEDS: Omeprazole 20 MG CAPSULE.DR PO ×2 (06:32→15:25)
[2024-06-22] MEDS: 0.9 % Sodium Chloride Flush 3 ML SYRINGE IVFLUSH ×2 (08:11→15:25)
[2024-06-22] MEDS: Albuterol/Iprat 2.5/0.5MG 3 ML AMPUL.NEB INHALE ×3 (08:34→19:31)
[2024-06-22] MEDS: Calcium Carbonate 750 MG TAB.CHEW PO (09:47)
[2024-06-22 09:49] LABS: Hemoglobin 19.4 g/dl (14.0-18.0); Mean Corpuscular HGB Conc 33.6 g/dl (31.0-36.0); Mean Corpuscular Hemoglobin 30.7 pg (27.0-33.0); Mean Corpuscular Volume 91.3 fL (80.0-98.0); Mean Platelet Volume 9.5 fL (9.4-12.4); Platelet Count 260 X10*3/uL (160-400); Red Blood Count 6.32 X10*6/uL (4.60-5.80); Red Cell Distribution Width 12.9 % (11.0-16.0); White Blood Count 11.7 X10*3/uL (4.8-10.8)
[2024-06-22 09:51] LABS: Hematocrit 57.7 % (42.0-52.0)
[2024-06-22 10:16] LABS: Anion Gap 16 (12-20); Blood Urea Nitrogen 12 mg/dL (9-16); Carbon Dioxide 24 mmol/L (22-29); Chloride 100 mmol/L (96-108); Creatinine Clr Calc Pharmacy 92.5; Estimated Glomerular Filt Rate > 60; Glucose Random 107 mg/dL (60-115); Potassium 3.7 mmol/L (3.3-5.1); Sodium 136 mmol/L (135-145)
--- NOTE | 2024-06-22 10:29 | P.PNIM_ITS ---
Subjective Subjective Date of Service: 06/22/24 Interval History: coughing up copious sputum without blood no fever poor appetite Review of Systems Review of Systems: Yes all other systems are reviewed and are negative Physical Exam 2 Vital Signs: Vital Signs: Last Vital Signs Temp 98.2 F 06/22/24 07:44 Pulse 86 06/22/24 08:38 Resp 18 06/22/24 08:38 BP 113/72 06/22/24 07:44 Pulse Ox 92 06/22/24 07:44 O2 Del Method Oxymask 06/22/24 07:44 O2 Flow Rate 7 06/22/24 07:44 BMI result Body Mass Index 20.8 Gen: in no acute distress HEENT: sclera anicteric, moist mucus membranes Neck: supple Lungs: diminished L>R, inspiratory crackles, wheezing Heart: regular rate and rhythm, no murmurs Abd: soft, non-tender, non-distended Ext: no edema Skin: warm/well-perfused Neuro: alert and oriented x3, no focal findings Psych: appropriate affect Objective Data Active Medications Acetaminophen (Acetaminophen 325 Mg Tablet) 650 mg PO Q6H PRN PRN Reason: Pain, Mild 1-3,fever,headache Al Hydroxide/Mg Hydroxide (Magnesium Hydrox/Alum Hydrox 30 Ml Oral.Susp) 30 ml PO Q6H PRN PRN Reason: heartburn Last Admin: 06/22/24 04:26 Dose: 30 ml Documented By: LES Albuterol/Ipratropium (Albuterol/Iprat 2.5/0.5mg 3 Ml Ampul.Neb) 3 ml INHALE RQ6H WHILE AWAKE [facility] Last Admin: 06/22/24 08:34 Dose: 3 ml Documented By: LEIF Benzocaine (Throat Lozenge, Medicated Lozenge) 1 lozenge MUCOUS MEM Q2H PRN PRN Reason: Sore Throat Last Admin: 06/21/24 18:16 Dose: 1 lozenge Documented By: FORTUNATO Calcium Carbonate (Calcium Carbonate 750 Mg Tab.Chew) 750 mg PO Q4H PRN PRN Reason: Heartburn Last Admin: 06/22/24 09:47 Dose: 750 mg Documented By: ALVINA Enoxaparin Sodium (Enoxaparin Sodium 40 Mg/0.4 Ml Syringe) 40 mg SUBCUT Q24H [facility] Last Admin: 06/21/24 15:47 Dose: 40 mg Documented By: FORTUNATO Guaifenesin/Dextromethorphan (Guaifenesin Dm 200/20/10 Ml 10 Ml Syrup) 10 ml PO QID [facility] Last Admin: 06/22/24 07:55 Dose: Not Given Documented By: ALVINA Non-Admin Reason: Patient Refused Cefepime HCl (Maxipime) 2 gm in 50 mls @ 100 mls/hr IV Q8H [facility] Last Admin: 06/22/24 09:47 Dose: 100 mls/hr Documented By: ALVINA Metronidazole (Flagyl) 500 mg in 100 mls @ 100 mls/hr IV Q8H [facility] Last Admin: 06/22/24 09:46 Dose: 100 mls/hr Documented By: ALVINA Azithromycin 500 mg/ Sodium (Chloride) 250 mls @ 125 mls/hr IV Q24H [facility] Last Infusion: 06/21/24 18:23 Dose: Infused Documented By: FORTUNATO Magnesium Hydroxide (Milk Of Magnesia 30 Ml Oral.Susp) 30 ml PO DAILY PRN PRN Reason: Constipation Melatonin (Melatonin 3 Mg Tablet) 6 mg PO BEDTIME PRN PRN Reason: Insomnia Nicotine Polacrilex (Nicotine Polacrilex Lozenge 2 Mg Lozenge) 2 mg BUCCAL Q2H PRN PRN Reason: Nicotine Cravings Omeprazole (Omeprazole 20 Mg Capsule.Dr) 20 mg PO BID@0630,1630 [facility] Last Admin: 06/22/24 06:32 Dose: 20 mg Documented By: LES Ondansetron HCl (Ondansetron Hcl 4 Mg/2 Ml Vial) 4 mg IVPUSH Q8H PRN PRN Reason: Nausea and Vomiting Last Admin: 06/22/24 02:21 Dose: 4 mg Documented By: LES Sodium Chloride (0.9 % Sodium Chloride Flush 3 Ml Syringe) 3 ml IVFLUSH QSHIFT [facility] Last Admin: 06/22/24 08:11 Dose: 3 ml Documented By: ALVINA Labs 06/22/24 09:13 06/22/24 09:13 Labs: Laboratory Results - last 24 hr 06/22/24 09:13 MCV 91.3 MCH 30.7 MCHC 33.6 RDW 12.9 Plt Count 260 MPV 9.5 Absolute Nucleated RBC 0.000 Nucleated RBC % (auto) 0.0 Anion Gap 16 Estim Creat Clear Calc 92.5 Estimated GFR > 60 Random Glucose 107 Calcium 9.0 Assessment and Plan (1) 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 (2) Pneumonia: Status: Acute (3) Acute hypoxic respiratory failure: Status: Acute (4) Abscess of lung with pneumonia: Status: Acute Plan d9 for 59yo M with no known PMHx but no current primary care for past 5 yr, 45 pack-year smoking history presenting with dyspnea, productive cough, and fatigue x 1 month failed outpt therapy [levofloxacin x5d + doxycycline x10d] admitted for hypoxia and sepsis due to multifocal pneumonia with multiple abscesses acute hypoxic respiratory failrue and sepsis due to multifocal pneumonia with multiple abscesses - vancomycin 06/14-06/17 [MRSA swab negative], cefepime 06/14-, metronidazole 06/16-, azithromycin 06/17- - Legionella UAg negative, T-spot IGRA negative, TB PCR negative, AFB smear x3 negative, HIV negative - ID + Pulm consulted; due to ongoing hypoxia, repeating CT chest now. Prior CT showed emphysema with fluid-filled bullae. Pulm recommended 3 wk of cefpodoxime and outpt f/u - wean O2 as tolerated erythrocytosis - likely secondary to hypoxia from COPD; therapeutic phlebotomy per Heme-Onc due to increased risk of thrombosis; epo level pending GERD - PPI, Maalox tobacco abuse - NRT VTE ppx - LMWH dispo - TBD In my clinical judgment, the patient requires continued inpatient hospitalization for the following reasons: IV ABX Total time managing care of this patient today: 45 minutes. Quality Stroke Does the patient have a stroke diagnosis?: No VTE Prior VTE?: No VTE Risk Level:: Medical - moderate - high VTE Device Contraindication: Treatment Not Indicated VTE Drug Contraindication: N/A - Med Ordered
[2024-06-22 10:30] LABS: Procalcitonin 0.15 ng/mL
[2024-06-22] MEDS: guaiFENesin DM 200/20/10 ML 10 ML SYRUP PO ×2 (11:45→19:44)
--- NOTE | 2024-06-22 13:42 | MHC.CM.PN ---
Per rounds, pt is not ready to DC, but will need STR at DC. CM met with pt. to ask his choices, he said in [place] if possible. Referrals out.
[2024-06-22] MEDS: Enoxaparin Sodium 40 MG/0.4 ML SYRINGE SUBCUT (15:25)
[2024-06-22] MEDS: Azithromycin 500 MG in 0.9 % Sodium Chloride 250 ML 125 MG IV (15:26)
[2024-06-22 19:39] LABS: Erythropoietin (EPO) 4.3 mIU/mL (2.6-18.5)
[2024-06-23] VITALS (10 sets, daily range): BP systolic 110–126; BP diastolic 72–81; PULSE 85–102; RESP 18–20; TEMP 36.1–37.2; O2SAT 82–94
[2024-06-23] MEDS: metroNIDAZOLE/NS 500 MG/100 ML PIGGYBACK 100 MG IV ×3 (01:35→18:12)
[2024-06-23] MEDS: cefEPime HCl/D5W 2 GM/50 ML PIGGYBACK IV ×3 (03:39→18:24)
[2024-06-23] MEDS: 0.9 % Sodium Chloride Flush 3 ML SYRINGE IVFLUSH ×4 (03:46→19:33)
[2024-06-23] MEDS: Omeprazole 20 MG CAPSULE.DR PO (06:07)
[2024-06-23] MEDS: Albuterol/Iprat 2.5/0.5MG 3 ML AMPUL.NEB INHALE ×2 (07:36→19:11)
[2024-06-23] MEDS: guaiFENesin DM 200/20/10 ML 10 ML SYRUP PO ×4 (08:03→19:30)
--- NOTE | 2024-06-23 11:55 | P.PNIM_ITS ---
Subjective Subjective Date of Service: 06/23/24 Interval History: coughing up plenty of sputum no hemoptysis no fever Review of Systems Review of Systems: Yes all other systems are reviewed and are negative Physical Exam 2 Vital Signs: Vital Signs: Last Vital Signs Temp 99.0 F 06/23/24 10:53 Pulse 102 H 06/23/24 10:53 Resp 20 06/23/24 10:53 BP 118/81 06/23/24 10:53 Pulse Ox 82 L 06/23/24 11:02 O2 Del Method Oxymask 06/23/24 10:53 O2 Flow Rate 6 06/23/24 10:53 BMI result Body Mass Index 20.8 Gen: in no acute distress HEENT: sclera anicteric, moist mucus membranes Neck: supple Lungs: diminished L>R, inspiratory crackles Heart: regular rate and rhythm, no murmurs Abd: soft, non-tender, non-distended Ext: no edema Skin: warm/well-perfused Neuro: alert and oriented x3, no focal findings Psych: appropriate affect Objective Data Active Medications Acetaminophen (Acetaminophen 325 Mg Tablet) 650 mg PO Q6H PRN PRN Reason: Pain, Mild 1-3,fever,headache Al Hydroxide/Mg Hydroxide (Magnesium Hydrox/Alum Hydrox 30 Ml Oral.Susp) 30 ml PO Q6H PRN PRN Reason: heartburn Last Admin: 06/22/24 04:26 Dose: 30 ml Documented By: LES Albuterol/Ipratropium (Albuterol/Iprat 2.5/0.5mg 3 Ml Ampul.Neb) 3 ml INHALE RQ6H WHILE AWAKE [facility] Last Admin: 06/23/24 07:36 Dose: 3 ml Documented By: URI Benzocaine (Throat Lozenge, Medicated Lozenge) 1 lozenge MUCOUS MEM Q2H PRN PRN Reason: Sore Throat Last Admin: 06/21/24 18:16 Dose: 1 lozenge Documented By: FORTUNATO Calcium Carbonate (Calcium Carbonate 750 Mg Tab.Chew) 750 mg PO Q4H PRN PRN Reason: Heartburn Last Admin: 06/22/24 09:47 Dose: 750 mg Documented By: ALVINA Enoxaparin Sodium (Enoxaparin Sodium 40 Mg/0.4 Ml Syringe) 40 mg SUBCUT Q24H [facility] Last Admin: 06/22/24 15:25 Dose: 40 mg Documented By: ALVINA Guaifenesin/Dextromethorphan (Guaifenesin Dm 200/20/10 Ml 10 Ml Syrup) 10 ml PO QID [facility] Last Admin: 06/23/24 08:03 Dose: 10 ml Documented By: FERMIN Cefepime HCl (Maxipime) 2 gm in 50 mls @ 100 mls/hr IV Q8H [facility] Last Admin: 06/23/24 11:18 Dose: 100 mls/hr Documented By: FERMIN Metronidazole (Flagyl) 500 mg in 100 mls @ 100 mls/hr IV Q8H [facility] Last Infusion: 06/23/24 11:22 Dose: 0 mls/hr Documented By: FERMIN Azithromycin 500 mg/ Sodium (Chloride) 250 mls @ 125 mls/hr IV Q24H [facility] Last Infusion: 06/22/24 17:26 Dose: Infused Documented By: ALVINA Magnesium Hydroxide (Milk Of Magnesia 30 Ml Oral.Susp) 30 ml PO DAILY PRN PRN Reason: Constipation Melatonin (Melatonin 3 Mg Tablet) 6 mg PO BEDTIME PRN PRN Reason: Insomnia Nicotine Polacrilex (Nicotine Polacrilex Lozenge 2 Mg Lozenge) 2 mg BUCCAL Q2H PRN PRN Reason: Nicotine Cravings Omeprazole (Omeprazole 20 Mg Capsule.Dr) 20 mg PO BID@0630,1630 [facility] Last Admin: 06/23/24 06:07 Dose: 20 mg Documented By: MEGHAN Ondansetron HCl (Ondansetron Hcl 4 Mg/2 Ml Vial) 4 mg IVPUSH Q8H PRN PRN Reason: Nausea and Vomiting Last Admin: 06/22/24 19:52 Dose: 4 mg Documented By: TEMO-SHARIFZEB Sodium Chloride (0.9 % Sodium Chloride Flush 3 Ml Syringe) 3 ml IVFLUSH QSHIFT [facility] Last Admin: 06/23/24 08:03 Dose: 3 ml Documented By: FERMIN Labs 06/22/24 09:13 06/22/24 09:13 Labs: Laboratory Results - last 24 hr 06/19/24 14:12 Erythropoietin 4.3 Microbiology Microbiology Results: Microbiology 06/22/24 15:30 Gram Stain - Final Sputum - Expectorated Sputum Culture - Preliminary No growth to date. Assessment and Plan (1) 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 (2) Pneumonia: Status: Acute (3) Acute hypoxic respiratory failure: Status: Acute (4) Abscess of lung with pneumonia: Status: Acute Plan d10 for 59yo M with no known PMHx but no current primary care for past 5 yr, 45 pack-year smoking history presenting with dyspnea, productive cough, and fatigue x 1 month failed outpt therapy [levofloxacin x5d + doxycycline x10d] admitted for hypoxia and sepsis due to multifocal pneumonia with multiple abscesses acute hypoxic respiratory failrue and sepsis due to multifocal pneumonia with multiple abscesses - vancomycin 06/14-06/17 [MRSA swab negative], cefepime 06/14-, metronidazole 06/16-, azithromycin 06/17- - Legionella UAg negative, T-spot IGRA negative, TB PCR negative, AFB smear x3 negative, HIV negative - ID + Pulm consulted; Pulm recommends medical treatment [3 wk cefpodoxime and outpt f/u]; discuss antibiotic choice with ID - wean O2 as tolerated erythrocytosis - likely secondary to hypoxia from COPD; therapeutic phlebotomy per Heme-Onc due to increased risk of thrombosis; epo level normal; recheck CBC tomorrow after phlebotomy GERD - PPI, Maalox tobacco abuse - NRT VTE ppx - LMWH dispo - PT evaluation: IPR recommended In my clinical judgment, the patient requires continued inpatient hospitalization for the following reasons: IV ABX, hypoxia Total time managing care of this patient today: 40 minutes. Quality Stroke Does the patient have a stroke diagnosis?: No VTE Prior VTE?: No VTE Risk Level:: Medical - moderate - high VTE Device Contraindication: Treatment Not Indicated VTE Drug Contraindication: N/A - Med Ordered
--- NOTE | 2024-06-23 13:24 | MHC.CM.PN ---
pt. completed HCP, naming his sister, Rosalie, and it has been added to his chart.
--- NOTE | 2024-06-23 15:26 | MHC.CM.PN ---
CM met with pt. to discuss STR. He said he does not want to go, he wants to go home and have services there.
[2024-06-23] MEDS: Azithromycin 500 MG in 0.9 % Sodium Chloride 250 ML 125 MG IV (15:39)
[2024-06-23] MEDS: Enoxaparin Sodium 40 MG/0.4 ML SYRINGE SUBCUT (15:39)
[2024-06-24] VITALS (8 sets, daily range): BP systolic 105–123; BP diastolic 62–78; PULSE 88–117; RESP 10–20; TEMP 36.1–37.3; O2SAT 88–92
[2024-06-24] MEDS: metroNIDAZOLE/NS 500 MG/100 ML PIGGYBACK 100 MG IV (01:05)
[2024-06-24] MEDS: cefEPime HCl/D5W 2 GM/50 ML PIGGYBACK IV (02:40)
[2024-06-24] MEDS: Throat Lozenge, Medicated LOZENGE 1 LOZENGE MUCOUS MEM ×2 (06:01→19:12)
[2024-06-24 07:49] LABS: Anion Gap 14 (12-20); Blood Urea Nitrogen 18 mg/dL (9-16); Calcium 9.4 mg/dL (8.4-10.2); Carbon Dioxide 24 mmol/L (22-29); Chloride 98 mmol/L (96-108); Creatinine Clr Calc Pharmacy 93.7; Estimated Glomerular Filt Rate > 60; Glucose Random 103 mg/dL (60-115); Sodium 132 mmol/L (135-145)
[2024-06-24 07:51] LABS: Hematocrit 54.4 % (42.0-52.0); Hemoglobin 18.3 g/dl (14.0-18.0); Mean Corpuscular HGB Conc 33.6 g/dl (31.0-36.0); Mean Corpuscular Hemoglobin 30.2 pg (27.0-33.0); Mean Corpuscular Volume 89.9 fL (80.0-98.0); Mean Platelet Volume 9.6 fL (9.4-12.4); Platelet Count 274 X10*3/uL (160-400); Red Blood Count 6.05 X10*6/uL (4.60-5.80); Red Cell Distribution Width 12.7 % (11.0-16.0); White Blood Count 12.6 X10*3/uL (4.8-10.8)
[2024-06-24] MEDS: Albuterol/Iprat 2.5/0.5MG 3 ML AMPUL.NEB INHALE ×3 (07:55→20:30)
[2024-06-24 08:29] LABS: Procalcitonin 0.27 ng/mL
[2024-06-24] MEDS: 0.9 % Sodium Chloride Flush 3 ML SYRINGE IVFLUSH ×3 (09:36→23:29)
[2024-06-24] MEDS: Meropenem 1 GM VIAL IVPUSH ×3 (09:36→23:24)
[2024-06-24] MEDS: guaiFENesin DM 200/20/10 ML 10 ML SYRUP PO ×4 (09:36→19:11)
--- NOTE | 2024-06-24 11:59 | P.PNIM_ITS ---
Subjective Subjective Date of Service: 06/24/24 Interval History: still short of breath and coughing up yellow sputum, requiring 6L O2 Review of Systems Review of Systems: Yes all other systems are reviewed and are negative Physical Exam 2 Vital Signs: Vital Signs: Last Vital Signs Temp 97.0 F 06/24/24 11:11 Pulse 117 H 06/24/24 11:11 Resp 20 06/24/24 11:11 BP 123/62 06/24/24 11:11 Pulse Ox 92 06/24/24 11:11 O2 Del Method Oxymask 06/24/24 11:11 O2 Flow Rate 7 06/24/24 11:11 BMI result Body Mass Index 20.8 Gen: in no acute distress HEENT: sclera anicteric, moist mucus membranes Neck: supple Lungs: diminished L>R, inspiratory crackles Heart: regular rate and rhythm, no murmurs Abd: soft, non-tender, non-distended Ext: no edema Skin: warm/well-perfused Neuro: alert and oriented x3, no focal findings Psych: appropriate affect Objective Data Active Medications Acetaminophen (Acetaminophen 325 Mg Tablet) 650 mg PO Q6H PRN PRN Reason: Pain, Mild 1-3,fever,headache Al Hydroxide/Mg Hydroxide (Magnesium Hydrox/Alum Hydrox 30 Ml Oral.Susp) 30 ml PO Q6H PRN PRN Reason: heartburn Last Admin: 06/22/24 04:26 Dose: 30 ml Documented By: LES Albuterol/Ipratropium (Albuterol/Iprat 2.5/0.5mg 3 Ml Ampul.Neb) 3 ml INHALE RQ6H WHILE AWAKE CRISTINE Last Admin: 06/24/24 07:55 Dose: 3 ml Documented By: URI Benzocaine (Throat Lozenge, Medicated Lozenge) 1 lozenge MUCOUS MEM Q2H PRN PRN Reason: Sore Throat Last Admin: 06/24/24 06:01 Dose: 1 lozenge Documented By: GRZEGORZ Calcium Carbonate (Calcium Carbonate 750 Mg Tab.Chew) 750 mg PO Q4H PRN PRN Reason: Heartburn Last Admin: 06/22/24 09:47 Dose: 750 mg Documented By: ALVINA Enoxaparin Sodium (Enoxaparin Sodium 40 Mg/0.4 Ml Syringe) 40 mg SUBCUT Q24H [facility] Last Admin: 06/23/24 15:39 Dose: 40 mg Documented By: FERMIN Guaifenesin/Dextromethorphan (Guaifenesin Dm 200/20/10 Ml 10 Ml Syrup) 10 ml PO QID [facility] Last Admin: 06/24/24 11:51 Dose: 10 ml Documented By: JOHN Magnesium Hydroxide (Milk Of Magnesia 30 Ml Oral.Susp) 30 ml PO DAILY PRN PRN Reason: Constipation Melatonin (Melatonin 3 Mg Tablet) 6 mg PO BEDTIME PRN PRN Reason: Insomnia Meropenem (Meropenem 1 Gm Vial) 1 gm IVPUSH Q8H [facility] Last Admin: 06/24/24 09:36 Dose: 1 gm Documented By: JOHN Nicotine Polacrilex (Nicotine Polacrilex Lozenge 2 Mg Lozenge) 2 mg BUCCAL Q2H PRN PRN Reason: Nicotine Cravings Omeprazole (Omeprazole 20 Mg Capsule.Dr) 20 mg PO BID@0630,1630 [facility] Last Admin: 06/24/24 06:00 Dose: Not Given Documented By: GRZEGORZ Non-Admin Reason: Patient Refused Ondansetron HCl (Ondansetron Hcl 4 Mg/2 Ml Vial) 4 mg IVPUSH Q8H PRN PRN Reason: Nausea and Vomiting Last Admin: 06/22/24 19:52 Dose: 4 mg Documented By: EBONI Sodium Chloride (0.9 % Sodium Chloride Flush 3 Ml Syringe) 3 ml IVFLUSH QSHIFT [facility] Last Admin: 06/24/24 09:36 Dose: 3 ml Documented By: JOHN Labs 06/24/24 07:06 06/24/24 07:06 Labs: Laboratory Results - last 24 hr 06/23/24 06/24/24 09:00 07:06 MCV 89.9 MCH 30.2 MCHC 33.6 RDW 12.7 Plt Count 274 MPV 9.6 Absolute Nucleated RBC 0.000 Nucleated RBC % (auto) 0.0 Anion Gap 14 Estim Creat Clear Calc 93.7 Estimated GFR > 60 Random Glucose 103 Calcium 9.4 Procalcitonin 0.27 Pre Ther Phlebot Hgb TNP Pre Ther Phlebot Hct TNP Therapeutic Phlebotomy Phlebotomy Performed Microbiology Microbiology Results: Microbiology 06/22/24 15:30 Gram Stain - Final Sputum - Expectorated Sputum Culture - Preliminary Yeast Assessment and Plan (1) 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 (2) Pneumonia: Status: Acute (3) Acute hypoxic respiratory failure: Status: Acute (4) Abscess of lung with pneumonia: Status: Acute Plan d11 for 59yo M with no known PMHx but no current primary care for past 5 yr, 45 pack-year smoking history presenting with dyspnea, productive cough, and fatigue x 1 month failed outpt therapy [levofloxacin x5d + doxycycline x10d] admitted for hypoxia and sepsis due to multifocal pneumonia with multiple abscesses acute hypoxic respiratory failrue and sepsis due to multifocal pneumonia with multiple abscesses - vancomycin 06/14-06/17 [MRSA swab negative], cefepime 06/14-06/24, metronidazole 06/16-06/24, azithromycin 06/17-06/24; change to meropenem today and plan ertapenem to complete 4 wk IV ABX per ID and will obtain midline catheter - Legionella UAg negative, T-spot IGRA negative, TB PCR negative, AFB smear x3 negative, HIV negative; discuss finding of yeast with ID - ID + Pulm consulted; unable to drain due to risk of pleural fistula; medical treatment with ABX recomemnded - wean O2 as tolerated erythrocytosis - likely secondary to hypoxia from COPD; therapeutic phlebotomy per Heme-Onc due to increased risk of thrombosis; epo level normal; monitor CBC periodically GERD - PPI, Maalox tobacco abuse - NRT VTE ppx - LMWH dispo - PT evaluation: IPR recommended In my clinical judgment, the patient requires continued inpatient hospitalization for the following reasons: IV ABX, hypoxia Total time managing care of this patient today: 40 minutes. Quality Stroke Does the patient have a stroke diagnosis?: No VTE Prior VTE?: No VTE Risk Level:: Medical - moderate - high VTE Device Contraindication: Treatment Not Indicated VTE Drug Contraindication: N/A - Med Ordered
--- NOTE | 2024-06-24 12:09 | MHC.CM.PN ---
Per rounds, anticipate pt. ready to DC to [facility] tomorrow. Referrals updated and bed availability requested to begin auth process, awaiting response.
--- NOTE | 2024-06-24 13:17 | P.CDIM_ITS ---
PROVIDER RESPONSE TEXT: To clarify, the appropriate diagnosis supported by the clinical indicators: COPD QUERY TEXT: PHYSICIAN'S DOCUMENTATION REQUEST Date of Query: 06/23/2024 09:08 AM EDT Patient Name: RADHA WHITMORE Admit Date: 06/14/2024 Dear Howard Sabillon MD, A review of the medical record indicates additional documentation may be needed. Please review below and update the documentation accordingly. Clinical Indicators: Progress note dated 06/22/24 - Erythrocytosis, likely secondary to hypoxia from COPD. Admitted patient with diffuse inspiratory and expiratory wheezing, rhonchi bilaterally, difficulty br eathing, SOB. IV Solumedrol, DuoNebs. History of smoking. Based on the above, could you clarify any further specifics to the noted diagnosis of COPD? COPD Exacerbation possible, probable, suspected, etc. COPD Other specified Other (explain) Clinically unable to determine (explain) Thank you, Monse Blackman, CCS, CDIS Use of terms such as suspected, likely, concern for, or probable (associated with a specific diagnosi s that is being evaluated, monitored, or treated as if it exists) are acceptable and can be coded in the inpatient se tting, when documented at the time of discharge. Please use your independent medical judgment in providing your response. THIS QUERY IS PART OF THE PERMANENT MEDICAL RECORD
--- NOTE | 2024-06-24 13:17 | P.CDIM_ITS ---
PROVIDER RESPONSE TEXT: To clarify, the appropriate diagnosis supported by the clinical indicators: Acute QUERY TEXT: PHYSICIAN'S DOCUMENTATION REQUEST Date of Query: 06/23/2024 09:05 AM EDT Patient Name: RADHA WHITMORE Admit Date: 06/14/2024 Dear Howard Sabillon MD, A review of the medical record indicates additional documentation may be needed. Please review below and update the documentation accordingly. Clinical Indicators: Progress note within the written Plan 06/21/24 - Heartburn likely due to Gastritis/reflux. Added Prilosec to 20 mg bid/Maalox as needed, improving. Clarify which of the following accurately represents the acuity of the Gastritis, if known: Acute Chronic Other specified Other (explain) Clinically unable to determine (explain) Thank you, Monse Blackman, CCS, CDIS Use of terms such as suspected, likely, concern for, or probable (associated with a specific diagnosi s that is being evaluated, monitored, or treated as if it exists) are acceptable and can be coded in the inpatient se tting, when documented at the time of discharge. Please use your independent medical judgment in providing your response. THIS QUERY IS PART OF THE PERMANENT MEDICAL RECORD
--- NOTE | 2024-06-24 14:55 | HO.MIDLINE_ITS ---
Midline Insertion MIDLINE INSERTION Diagnosis: Sepsis/ARDS/PNA Indication: 3 weeks IV Ertapenem Pertinent Labs: Reviewed Technique: Using sterile technique including cap and mask, glove and drape, the Right arm was prepped and draped in the usual sterile fashion of full barrier technique with CHG. Using ultrasound guidance, Right Basilic vein access was obtained. 4FR Non-Pasv Powermidline was positioned, trimmed at 14cm. The procedure was performed in Rm 272. Ultrasound was used to document vein patency and for needle entry. A formal ultrasound picture was recorded. Vascular Customer Support Specialist has released the line for use and it is currently dressed with a StatLock, Tegaderm, and CHG disc. Verification has been performed for blood return and line patency. Arm Circumference: 23.5CM Equipment: Bard Powermidline Catheter Catheter Type: 4FR Non-Pasv Powermidline Lot #: [id number]
[2024-06-24] MEDS: Heparin Sodium,Porcine Flush 50 UNITS, 0.9 % Sodium Chloride Flush 5 ML IVFLUSH ×2 (17:40→23:28)
[2024-06-24] MEDS: Enoxaparin Sodium 40 MG/0.4 ML SYRINGE SUBCUT (17:40)
[2024-06-25] VITALS (9 sets, daily range): BP systolic 102–127; BP diastolic 70–80; PULSE 78–97; RESP 16–18; TEMP 36.3–36.7; O2SAT 90–92
[2024-06-25] MEDS: Throat Lozenge, Medicated LOZENGE 1 LOZENGE MUCOUS MEM ×2 (00:21→21:51)
[2024-06-25] MEDS: Albuterol/Iprat 2.5/0.5MG 3 ML AMPUL.NEB INHALE ×3 (07:24→20:01)
[2024-06-25] MEDS: 0.9 % Sodium Chloride Flush 3 ML SYRINGE IVFLUSH ×3 (08:32→19:35)
[2024-06-25] MEDS: Heparin Sodium,Porcine Flush 50 UNITS, 0.9 % Sodium Chloride Flush 5 ML IVFLUSH ×3 (08:33→19:34)
[2024-06-25] MEDS: Meropenem 1 GM VIAL IVPUSH ×3 (08:33→23:27)
--- NOTE | 2024-06-25 11:19 | P.PNIM_ITS ---
Subjective Subjective Date of Service: 06/25/24 Interval History: coughing up copious sputum breathing just a little better but still needs 6L O2 Review of Systems Review of Systems: Yes all other systems are reviewed and are negative Physical Exam 2 Vital Signs: Vital Signs: Last Vital Signs Temp 98.1 F 06/25/24 07:08 Pulse 87 06/25/24 07:24 Resp 18 06/25/24 07:24 BP 112/72 06/25/24 07:08 Pulse Ox 92 06/25/24 07:08 O2 Del Method Aerosol Mask 06/25/24 07:08 O2 Flow Rate 6 06/25/24 07:08 BMI result Body Mass Index 20.8 Gen: in no acute distress HEENT: sclera anicteric, moist mucus membranes Neck: supple Lungs: diminished L>R, wet inspiratory crackles L side Heart: regular rate and rhythm, no murmurs Abd: soft, non-tender, non-distended Ext: no edema, R basilic midline Skin: warm/well-perfused Neuro: alert and oriented x3, no focal findings Psych: appropriate affect Objective Data Active Medications Acetaminophen (Acetaminophen 325 Mg Tablet) 650 mg PO Q6H PRN PRN Reason: Pain, Mild 1-3,fever,headache Al Hydroxide/Mg Hydroxide (Magnesium Hydrox/Alum Hydrox 30 Ml Oral.Susp) 30 ml PO Q6H PRN PRN Reason: heartburn Last Admin: 06/22/24 04:26 Dose: 30 ml Documented By: LES Albuterol/Ipratropium (Albuterol/Iprat 2.5/0.5mg 3 Ml Ampul.Neb) 3 ml INHALE RQ6H WHILE AWAKE CRISTINE Last Admin: 06/25/24 07:24 Dose: 3 ml Documented By: FRANCISCO Benzocaine (Throat Lozenge, Medicated Lozenge) 1 lozenge MUCOUS MEM Q2H PRN PRN Reason: Sore Throat Last Admin: 06/25/24 00:21 Dose: 1 lozenge Documented By: GRZEGORZ Calcium Carbonate (Calcium Carbonate 750 Mg Tab.Chew) 750 mg PO Q4H PRN PRN Reason: Heartburn Last Admin: 06/22/24 09:47 Dose: 750 mg Documented By: ALVINA Heparin Sodium (Porcine) 50 (units/ Sodium Chloride 5 ml) 0 units IVFLUSH TID [facility] Last Admin: 06/25/24 08:33 Dose: 50 unit Documented By: SUGAR Comments: Enoxaparin Sodium (Enoxaparin Sodium 40 Mg/0.4 Ml Syringe) 40 mg SUBCUT Q24H [facility] Last Admin: 06/24/24 17:40 Dose: 40 mg Documented By: JOHN Guaifenesin/Dextromethorphan (Guaifenesin Dm 200/20/10 Ml 10 Ml Syrup) 10 ml PO QID [facility] Last Admin: 06/25/24 08:36 Dose: Not Given Documented By: SUGAR Non-Admin Reason: Patient Refused Magnesium Hydroxide (Milk Of Magnesia 30 Ml Oral.Susp) 30 ml PO DAILY PRN PRN Reason: Constipation Melatonin (Melatonin 3 Mg Tablet) 6 mg PO BEDTIME PRN PRN Reason: Insomnia Meropenem (Meropenem 1 Gm Vial) 1 gm IVPUSH Q8H [facility] Last Admin: 06/25/24 08:33 Dose: 1 gm Documented By: SUGAR Nicotine Polacrilex (Nicotine Polacrilex Lozenge 2 Mg Lozenge) 2 mg BUCCAL Q2H PRN PRN Reason: Nicotine Cravings Omeprazole (Omeprazole 20 Mg Capsule.Dr) 20 mg PO BID@0630,1630 [facility] Last Admin: 06/25/24 04:29 Dose: Not Given Documented By: GRZEGORZ Non-Admin Reason: Patient Refused Ondansetron HCl (Ondansetron Hcl 4 Mg/2 Ml Vial) 4 mg IVPUSH Q8H PRN PRN Reason: Nausea and Vomiting Last Admin: 06/22/24 19:52 Dose: 4 mg Documented By: EBONI Sodium Chloride (0.9 % Sodium Chloride Flush 3 Ml Syringe) 3 ml IVFLUSH QSHIFT [facility] Last Admin: 06/25/24 08:32 Dose: 3 ml Documented By: SUGAR Labs 06/24/24 07:06 06/24/24 07:06 Microbiology Microbiology Results: Microbiology 06/22/24 15:30 Gram Stain - Final Sputum - Expectorated Sputum Culture - Preliminary Yeast Assessment and Plan (1) 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 (2) Pneumonia: Status: Acute (3) Acute hypoxic respiratory failure: Status: Acute (4) Abscess of lung with pneumonia: Status: Acute Plan d12 for 59yo M with no known PMHx but no current primary care for past 5 yr, 45 pack-year smoking history presenting with dyspnea, productive cough, and fatigue x 1 month failed outpt therapy [levofloxacin x5d + doxycycline x10d] admitted for hypoxia and sepsis due to multifocal pneumonia with multiple abscesses acute hypoxic respiratory failrue and sepsis due to multifocal pneumonia with multiple abscesses - vancomycin 06/14-06/17 [MRSA swab negative], cefepime 06/14-06/24, metronidazole 06/16-06/24, azithromycin 06/17-06/24; changed to meropenem 06/24 and plan ertapenem to complete 4 wk IV ABX per ID; end date 07/12; midline placed 06/24 - Legionella UAg negative, T-spot IGRA negative, TB PCR negative, AFB smear x3 negative, HIV negative; per ID yeast in sputum not significant unless Cryptococcus sp. - ID + Pulm consulted; unable to drain due to risk of pleural fistula; medical treatment with ABX recomemnded - wean O2 as tolerated; currently on 6L O2 erythrocytosis - likely secondary to hypoxia from COPD; therapeutic phlebotomy per Heme-Onc due to increased risk of thrombosis; epo level normal; monitor CBC periodically GERD - PPI, Maalox tobacco abuse - NRT VTE ppx - enoxaparin dispo - PT evaluation: IPR recommended In my clinical judgment, the patient requires continued inpatient hospitalization for the following reasons: IV ABX, hypoxia Total time managing care of this patient today: 35 minutes. Quality Stroke Does the patient have a stroke diagnosis?: No VTE Prior VTE?: No VTE Risk Level:: Medical - moderate - high VTE Device Contraindication: Treatment Not Indicated VTE Drug Contraindication: N/A - Med Ordered
[2024-06-25] MEDS: guaiFENesin DM 200/20/10 ML 10 ML SYRUP PO ×3 (14:55→19:34)
[2024-06-25] MEDS: Enoxaparin Sodium 40 MG/0.4 ML SYRINGE SUBCUT (17:39)
[2024-06-26] VITALS (9 sets, daily range): BP systolic 111–120; BP diastolic 68–80; PULSE 77–96; RESP 16–18; TEMP 36.1–36.6; O2SAT 88–93
[2024-06-26 07:01] LABS: Hematocrit 53.6 % (42.0-52.0); Hemoglobin 18.4 g/dl (14.0-18.0); Mean Corpuscular HGB Conc 34.3 g/dl (31.0-36.0); Mean Corpuscular Hemoglobin 30.1 pg (27.0-33.0); Mean Corpuscular Volume 87.6 fL (80.0-98.0); Mean Platelet Volume 9.6 fL (9.4-12.4); Platelet Count 354 X10*3/uL (160-400); Red Blood Count 6.12 X10*6/uL (4.60-5.80); Red Cell Distribution Width 12.6 % (11.0-16.0); White Blood Count 13.2 X10*3/uL (4.8-10.8)
[2024-06-26] MEDS: Albuterol/Iprat 2.5/0.5MG 3 ML AMPUL.NEB INHALE ×3 (07:14→20:49)
[2024-06-26 07:16] LABS: Alanine Aminotransferase 14 U/L (0-40); Albumin Level 3.6 g/dL (3.5-5.0); Alkaline Phosphatase 73 U/L (39-117); Anion Gap 15 (12-20); Aspartate Amino Transferase 16 U/L (5-37); Bilirubin Total 0.5 mg/dL (0.0-1.0); Blood Urea Nitrogen 17 mg/dL (9-16); Calcium 9.5 mg/dL (8.4-10.2); Carbon Dioxide 25 mmol/L (22-29); Chloride 93 mmol/L (96-108); Creatinine Clr Calc Pharmacy 92.5; Estimated Glomerular Filt Rate > 60; Glucose Random 101 mg/dL (60-115); Potassium 3.5 mmol/L (3.3-5.1); Sodium 129 mmol/L (135-145); Total Protein 6.9 g/dL (6.5-8.0)
[2024-06-26 07:30] LABS: Procalcitonin 0.13 ng/mL
[2024-06-26] MEDS: Meropenem 1 GM VIAL IVPUSH ×3 (08:03→22:53)
[2024-06-26] MEDS: Heparin Sodium,Porcine Flush 50 UNITS, 0.9 % Sodium Chloride Flush 5 ML IVFLUSH ×3 (08:08→19:50)
[2024-06-26] MEDS: guaiFENesin DM 200/20/10 ML 10 ML SYRUP PO ×4 (08:09→19:50)
[2024-06-26] MEDS: 0.9 % Sodium Chloride Flush 3 ML SYRINGE IVFLUSH ×3 (08:10→19:51)
--- NOTE | 2024-06-26 10:19 | MHC.CM.PN ---
PER MD ROUNDS PATIENT NOT MEDICALLY CLEARED FOR DC. BED OFFER FROM [facility]. WILL INITIATE AUTH.
--- NOTE | 2024-06-26 15:44 | P.PNIM_ITS ---
Subjective Subjective Date of Service: 06/26/24 Interval History: Still unable to wean O2. Continues with intermittent productive cough Review of Systems Admits to chest pain with cough Admits to shortness of breath which has not improved Denies nausea vomiting diarrhea Denies fever chills Physical Exam 2 Vital Signs: Vital Signs: Last Vital Signs Temp 96.9 F 06/26/24 15:17 Pulse 90 06/26/24 15:17 Resp 18 06/26/24 15:17 BP 117/80 06/26/24 15:17 Pulse Ox 90 L 06/26/24 15:17 O2 Del Method Oxymask 06/26/24 15:17 O2 Flow Rate 6 06/26/24 15:17 BMI result Body Mass Index 20.8 Const: Other: Awake alert no acute distress Resp: Other: Diminished left base greater than right base with diffuse crackles left base. Coarse rhonchi clear with cough Cardio: Other: No S4; positive S1-S2; no S3 murmurs rubs or gallops GI: Other: Soft nontender nondistended normoactive bowel sounds Extrem: Other: No edema bilaterally Objective Data Active Medications Acetaminophen (Acetaminophen 325 Mg Tablet) 650 mg PO Q6H PRN PRN Reason: Pain, Mild 1-3,fever,headache Al Hydroxide/Mg Hydroxide (Magnesium Hydrox/Alum Hydrox 30 Ml Oral.Susp) 30 ml PO Q6H PRN PRN Reason: heartburn Last Admin: 06/22/24 04:26 Dose: 30 ml Documented By: LES Albuterol/Ipratropium (Albuterol/Iprat 2.5/0.5mg 3 Ml Ampul.Neb) 3 ml INHALE RQ6H WHILE AWAKE [facility] Last Admin: 06/26/24 07:14 Dose: 3 ml Documented By: URI Benzocaine (Throat Lozenge, Medicated Lozenge) 1 lozenge MUCOUS MEM Q2H PRN PRN Reason: Sore Throat Last Admin: 06/25/24 21:51 Dose: 1 lozenge Documented By: TON Calcium Carbonate (Calcium Carbonate 750 Mg Tab.Chew) 750 mg PO Q4H PRN PRN Reason: Heartburn Last Admin: 06/22/24 09:47 Dose: 750 mg Documented By: ALVINA Heparin Sodium (Porcine) 50 (units/ Sodium Chloride 5 ml) 0 units IVFLUSH TID [facility] Last Admin: 06/26/24 08:08 Dose: 50 unit Documented By: VELVET Enoxaparin Sodium (Enoxaparin Sodium 40 Mg/0.4 Ml Syringe) 40 mg SUBCUT Q24H [facility] Last Admin: 06/25/24 17:39 Dose: 40 mg Documented By: JOHN Guaifenesin/Dextromethorphan (Guaifenesin Dm 200/20/10 Ml 10 Ml Syrup) 10 ml PO QID [facility] Last Admin: 06/26/24 13:10 Dose: 10 ml Documented By: VELVET Magnesium Hydroxide (Milk Of Magnesia 30 Ml Oral.Susp) 30 ml PO DAILY PRN PRN Reason: Constipation Melatonin (Melatonin 3 Mg Tablet) 6 mg PO BEDTIME PRN PRN Reason: Insomnia Meropenem (Meropenem 1 Gm Vial) 1 gm IVPUSH Q8H [facility] Last Admin: 06/26/24 08:03 Dose: 1 gm Documented By: VELVET Nicotine Polacrilex (Nicotine Polacrilex Lozenge 2 Mg Lozenge) 2 mg BUCCAL Q2H PRN PRN Reason: Nicotine Cravings Omeprazole (Omeprazole 20 Mg Capsule.Dr) 20 mg PO BID@0630,1630 [facility] Last Admin: 06/26/24 05:51 Dose: Not Given Documented By: TON Non-Admin Reason: Patient Refused Ondansetron HCl (Ondansetron Hcl 4 Mg/2 Ml Vial) 4 mg IVPUSH Q8H PRN PRN Reason: Nausea and Vomiting Last Admin: 06/22/24 19:52 Dose: 4 mg Documented By: EBONI Sodium Chloride (0.9 % Sodium Chloride Flush 3 Ml Syringe) 3 ml IVFLUSH QSHIFT [facility] Last Admin: 06/26/24 08:10 Dose: 3 ml Documented By: VELVET Labs 06/26/24 05:56 06/26/24 05:56 Labs: Laboratory Results - last 24 hr 06/26/24 05:56 MCV 87.6 MCH 30.1 MCHC 34.3 RDW 12.6 Plt Count 354 D MPV 9.6 Absolute Nucleated RBC 0.000 Nucleated RBC % (auto) 0.0 Anion Gap 15 Estim Creat Clear Calc 92.5 Estimated GFR > 60 Random Glucose 101 Calcium 9.5 Total Bilirubin 0.5 AST 16 ALT 14 Alkaline Phosphatase 73 Total Protein 6.9 Albumin 3.6 Procalcitonin 0.13 Microbiology Microbiology Results: Microbiology 06/22/24 15:30 Gram Stain - Final Sputum - Expectorated Sputum Culture - Preliminary Yeast Assessment and Plan (1) Acute hypoxic respiratory failure: Status: Acute (2) Abscess of lung with pneumonia: Status: Acute Plan 59yo M with no known PMHx but no current primary care for past 5 yr, 45 pack- year smoking history presenting with dyspnea, productive cough, and fatigue x 1 month;failed outpt therapy [levofloxacin x5d + doxycycline x10d];admitted for hypoxia and sepsis due to multifocal pneumonia with multiple abscesses 1.Acute hypoxic respiratory failrue and sepsis due to multifocal pneumonia with multiple abscesses - vancomycin 06/14-06/17 [MRSA swab negative], cefepime 06/14-06/24, metronidazole 06/16-06/24, azithromycin 06/17-06/24; changeLegionella UAg negative, T-spot IGRA negative, TB PCR negative, AFB smear x3 negative, - ID + Pulm consulted; unable to drain due to risk of pleural fistula; medical treatment with ABX recomemnded - wean O2 as tolerated; currently on 6L O2 -if no improvement in a.m. we will rescan chest 2.GERD - PPI, Maalox Enoxaparin Full code In my clinical judgment, the patient requires continued inpatient hospitalization for the following reasons: IV ABX, hypoxia Quality Stroke Does the patient have a stroke diagnosis?: No VTE Prior VTE?: No VTE Risk Level:: Medical - moderate - high VTE Device Contraindication: Treatment Not Indicated VTE Drug Contraindication: N/A - Med Ordered
[2024-06-26] MEDS: Omeprazole 20 MG CAPSULE.DR PO (16:29)
[2024-06-26] MEDS: Enoxaparin Sodium 40 MG/0.4 ML SYRINGE SUBCUT (16:30)
[2024-06-27 03:36] VITALS: BP 127/80; PULSE 87; RESP 18; TEMP 36.2; O2SAT 92
[2024-06-27] MEDS: Omeprazole 20 MG CAPSULE.DR PO ×2 (06:17→15:31)
[2024-06-27] MEDS: guaiFENesin 200 MG/10 ML 10 ML LIQUID PO ×2 (06:17→23:01)
[2024-06-27 07:00] LABS: MANUAL DIFF FLAG NO
[2024-06-27 07:12] LABS: Basophils Absolute Auto 0.1 X10*3/uL (0.0-0.2); Basophils Percent Auto 0.9 % (0-2); Eosinophils Absolute Auto 0.3 X10*3/uL (0.0-0.4); Hematocrit 53.8 % (42.0-52.0); Hemoglobin 19.2 g/dl (14.0-18.0); Imm Gran Abs Auto 0.43 X10*3/uL (0.00-0.03); Imm Gran Pct Auto 3.1 % (0.0-0.4); Lymphocytes Absolute Auto 1.8 X10*3/uL (1.2-4.9); Lymphocytes Percent Auto 12.9 % (20-40); Mean Corpuscular HGB Conc 35.7 g/dl (31.0-36.0); Mean Corpuscular Hemoglobin 30.7 pg (27.0-33.0); Mean Corpuscular Volume 85.9 fL (80.0-98.0); Mean Platelet Volume 9.7 fL (9.4-12.4); Monocytes Percent Auto 7.3 % (2-11); Neutrophils Absolute Auto 10.1 x10*3/uL (2.0-8.3); Neutrophils Percent Auto 73.8 % (45-73); Platelet Count 352 X10*3/uL (160-400); Red Blood Count 6.26 X10*6/uL (4.60-5.80); Red Cell Distribution Width 12.5 % (11.0-16.0); White Blood Count 13.8 X10*3/uL (4.8-10.8)
[2024-06-27 07:36] VITALS: BP 108/72; PULSE 77; RESP 16; TEMP 36; O2SAT 91
[2024-06-27 07:38] LABS: Alanine Aminotransferase 20 U/L (0-40); Albumin Level 3.7 g/dL (3.5-5.0); Alkaline Phosphatase 84 U/L (39-117); Anion Gap 15 (12-20); Aspartate Amino Transferase 20 U/L (5-37); Bilirubin Total 0.5 mg/dL (0.0-1.0); Blood Urea Nitrogen 17 mg/dL (9-16); Calcium 9.7 mg/dL (8.4-10.2); Carbon Dioxide 28 mmol/L (22-29); Chloride 89 mmol/L (96-108); Creatinine Clr Calc Pharmacy 102.9; Estimated Glomerular Filt Rate > 60; Glucose Fasting 101 mg/dL (60-99); Potassium 3.5 mmol/L (3.3-5.1); Sodium 128 mmol/L (135-145); Total Protein 7.2 g/dL (6.5-8.0)
[2024-06-27] MEDS: Heparin Sodium,Porcine Flush 50 UNITS, 0.9 % Sodium Chloride Flush 5 ML IVFLUSH ×3 (08:39→20:20)
[2024-06-27] MEDS: Meropenem 1 GM VIAL IVPUSH ×3 (08:39→23:01)
[2024-06-27] MEDS: guaiFENesin DM 200/20/10 ML 10 ML SYRUP PO ×4 (08:39→20:20)
[2024-06-27] MEDS: 0.9 % Sodium Chloride Flush 3 ML SYRINGE IVFLUSH ×2 (08:46→15:31)
[2024-06-27] MEDS: Albuterol/Iprat 2.5/0.5MG 3 ML AMPUL.NEB INHALE (08:47)
[2024-06-27 08:51] VITALS: PULSE 79; RESP 16; O2SAT 97
[2024-06-27 12:43] VITALS: O2SAT 90
--- NOTE | 2024-06-27 14:54 | P.PNIM_ITS ---
Subjective Subjective Date of Service: 06/27/24 Interval History: Appears improved today. State breathing easy however coughing up copious amounts of fluid Review of Systems Admits to chest pain with cough Admits to shortness of breath which has not improved Denies nausea vomiting diarrhea Denies fever chills Physical Exam 2 Vital Signs: Vital Signs: Last Vital Signs Temp 96.8 F 06/27/24 07:36 Pulse 79 06/27/24 08:51 Resp 16 06/27/24 08:51 BP 108/72 06/27/24 07:36 Pulse Ox 90 L 06/27/24 12:43 O2 Del Method Oxymask 06/27/24 12:43 O2 Flow Rate 6 06/27/24 12:43 BMI result Body Mass Index 20.8 Const: Other: Awake alert no acute distress Resp: Other: Diminished left base greater than right base with diffuse crackles left base. Coarse rhonchi clear with cough Cardio: Other: No S4; positive S1-S2; no S3 murmurs rubs or gallops GI: Other: Soft nontender nondistended normoactive bowel sounds Extrem: Other: No edema bilaterally Objective Data Active Medications Acetaminophen (Acetaminophen 325 Mg Tablet) 650 mg PO Q6H PRN PRN Reason: Pain, Mild 1-3,fever,headache Al Hydroxide/Mg Hydroxide (Magnesium Hydrox/Alum Hydrox 30 Ml Oral.Susp) 30 ml PO Q6H PRN PRN Reason: heartburn Last Admin: 06/22/24 04:26 Dose: 30 ml Documented By: LES Benzocaine (Throat Lozenge, Medicated Lozenge) 1 lozenge MUCOUS MEM Q2H PRN PRN Reason: Sore Throat Last Admin: 06/25/24 21:51 Dose: 1 lozenge Documented By: TON Benzonatate (Benzonatate 100 Mg Capsule) 200 mg PO TID PRN PRN Reason: Cough Calcium Carbonate (Calcium Carbonate 750 Mg Tab.Chew) 750 mg PO Q4H PRN PRN Reason: Heartburn Last Admin: 06/22/24 09:47 Dose: 750 mg Documented By: ALVINA Heparin Sodium (Porcine) 50 (units/ Sodium Chloride 5 ml) 0 units IVFLUSH TID [facility] Last Admin: 06/27/24 08:39 Dose: 50 unit Documented By: BRIDGETTE Enoxaparin Sodium (Enoxaparin Sodium 40 Mg/0.4 Ml Syringe) 40 mg SUBCUT Q24H [facility] Last Admin: 06/26/24 16:30 Dose: 40 mg Documented By: VELVET Guaifenesin (Guaifenesin 200 Mg/10 Ml 10 Ml Liquid) 10 ml PO Q6H PRN PRN Reason: Cough Last Admin: 06/27/24 06:17 Dose: 10 ml Documented By: DEEPAK Guaifenesin/Dextromethorphan (Guaifenesin Dm 200/20/10 Ml 10 Ml Syrup) 10 ml PO QID [facility] Last Admin: 06/27/24 12:47 Dose: 10 ml Documented By: BRIDGETTE Magnesium Hydroxide (Milk Of Magnesia 30 Ml Oral.Susp) 30 ml PO DAILY PRN PRN Reason: Constipation Melatonin (Melatonin 3 Mg Tablet) 6 mg PO BEDTIME PRN PRN Reason: Insomnia Meropenem (Meropenem 1 Gm Vial) 1 gm IVPUSH Q8H [facility] Last Admin: 06/27/24 08:39 Dose: 1 gm Documented By: BRIDGETTE Nicotine Polacrilex (Nicotine Polacrilex Lozenge 2 Mg Lozenge) 2 mg BUCCAL Q2H PRN PRN Reason: Nicotine Cravings Omeprazole (Omeprazole 20 Mg Capsule.) 20 mg PO BID@0630,1630 [facility] Last Admin: 06/27/24 06:17 Dose: 20 mg Documented By: DEEPAK Ondansetron HCl (Ondansetron Hcl 4 Mg/2 Ml Vial) 4 mg IVPUSH Q8H PRN PRN Reason: Nausea and Vomiting Last Admin: 06/22/24 19:52 Dose: 4 mg Documented By: TEMO-JOZEB Sodium Chloride (0.9 % Sodium Chloride Flush 3 Ml Syringe) 3 ml IVFLUSH QSHIFT [facility] Last Admin: 06/27/24 08:46 Dose: 3 ml Documented By: BRIDGETTE Labs 06/27/24 05:37 06/27/24 05:37 Labs: Laboratory Results - last 24 hr 06/27/24 05:37 MCV 85.9 MCH 30.7 MCHC 35.7 RDW 12.5 Plt Count 352 MPV 9.7 Immature Gran % (Auto) 3.1 H Neut % (Auto) 73.8 H Lymph % (Auto) 12.9 L [place] % (Auto) 7.3 Eos % (Auto) 2.0 Baso % (Auto) 0.9 Lymph # (Auto) 1.8 [place] # (Auto) 1.0 Eos # (Auto) 0.3 Baso # (Auto) 0.1 Abs Immat Gran (auto) 0.43 H Absolute Neuts (auto) 10.1 H Absolute Nucleated RBC 0.000 Nucleated RBC % (auto) 0.0 Anion Gap 15 Estim Creat Clear Calc 102.9 Estimated GFR > 60 Fasting Glucose 101 H Calcium 9.7 Total Bilirubin 0.5 AST 20 ALT 20 Alkaline Phosphatase 84 Total Protein 7.2 Albumin 3.7 Microbiology Microbiology Results: Microbiology 06/22/24 15:30 Gram Stain - Final Sputum - Expectorated Sputum Culture - Final Briseida albicans Assessment and Plan (1) Pneumonia: Status: Acute (2) Acute hypoxic respiratory failure: Status: Acute Plan 59yo M with no known PMHx but no current primary care for past 5 yr, 45 pack- year smoking history presenting with dyspnea, productive cough, and fatigue x 1 month;failed outpt therapy [levofloxacin x5d + doxycycline x10d];admitted for hypoxia and sepsis due to multifocal pneumonia with multiple abscesses 1.Acute hypoxic respiratory failrue and sepsis due to multifocal pneumonia with multiple abscesses -meropenem (4) -CT scan without acute changes; reviewed with Pulmonary. No changes in plan continue meropenem - wean O2 as tolerated; currently on 6L O2 2.GERD - PPI, Maalox Enoxaparin Full code In my clinical judgment, the patient requires continued inpatient hospitalization for the following reasons: IV ABX, hypoxia Quality Stroke Does the patient have a stroke diagnosis?: No VTE Prior VTE?: No VTE Risk Level:: Medical - moderate - high VTE Device Contraindication: Treatment Not Indicated VTE Drug Contraindication: N/A - Med Ordered
[2024-06-27 15:13] VITALS: BP 124/82; PULSE 78; RESP 18; TEMP 36.1; O2SAT 93
[2024-06-27] MEDS: Enoxaparin Sodium 40 MG/0.4 ML SYRINGE SUBCUT (15:32)
[2024-06-27 19:48] VITALS: BP 106/70; PULSE 95; RESP 18; TEMP 36.6; O2SAT 90
--- NOTE | 2024-06-27 23:13 | P.PNID_ITS ---
Subjective Subjective Date of Service: 06/27/24 Critical Care Time (minutes): 15 Comment: He still has shortness of breath and no improvement,6l oxymask he has purulent sputum Objective Data Labs 06/27/24 05:37 06/27/24 05:37 Labs: Laboratory Results - last 24 hr 06/27/24 05:37 WBC 13.8 H RBC 6.26 H Hgb 19.2 H Hct 53.8 H MCV 85.9 MCH 30.7 MCHC 35.7 RDW 12.5 Plt Count 352 MPV 9.7 Immature Gran % (Auto) 3.1 H Neut % (Auto) 73.8 H Lymph % (Auto) 12.9 L [place] % (Auto) 7.3 Eos % (Auto) 2.0 Baso % (Auto) 0.9 Lymph # (Auto) 1.8 [place] # (Auto) 1.0 Eos # (Auto) 0.3 Baso # (Auto) 0.1 Abs Immat Gran (auto) 0.43 H Absolute Neuts (auto) 10.1 H Absolute Nucleated RBC 0.000 Nucleated RBC % (auto) 0.0 Sodium 128 L Potassium 3.5 Chloride 89 L Carbon Dioxide 28 Anion Gap 15 BUN 17 H Creatinine 0.71 Estim Creat Clear Calc 102.9 Estimated GFR > 60 Fasting Glucose 101 H Calcium 9.7 Total Bilirubin 0.5 AST 20 ALT 20 Alkaline Phosphatase 84 Total Protein 7.2 Albumin 3.7 Microbiology Microbiology Results: Microbiology 06/22/24 15:30 Sputum - Expectorated Gram Stain - Final 06/22/24 15:30 Sputum - Expectorated Sputum Culture - Final Briseida albicans 06/14/24 11:04 Blood - Venous Blood Culture - Final No growth after 5 days. 06/14/24 11:04 Blood - Venous Blood Culture - Final No growth after 5 days. 06/14/24 16:08 Sputum - Expectorated Direct Acid Fast Bacilli Smear - Final 06/16/24 03:15 Sputum - Expectorated Direct Acid Fast Bacilli Smear - Final 06/16/24 10:30 Sputum - Expectorated Direct Acid Fast Bacilli Smear - Final Physical Exam 2 Vital Signs: Vital Signs: Last Vital Signs Temp 97.8 F 06/27/24 19:48 Pulse 95 06/27/24 19:48 Resp 18 06/27/24 19:48 BP 106/70 06/27/24 19:48 Pulse Ox 90 L 06/27/24 19:48 O2 Del Method Oxymask 06/27/24 19:48 O2 Flow Rate 6 06/27/24 19:48 BMI result Body Mass Index 20.8 Const: General: cooperative HEENT: Head: Yes normal to inspection Face and sinus: Yes normal facial exam Mouth: Normal oral and palatal mucosa present Teeth and gingiva: d entition normal Eyes: General: appearance normal, both eyes and all related structures P upils: Equal, round and reactive pupils present Resp: Other: rhonchi bases Cardio: Rate: regular rate Rhythm: regular rhythm GI: Palpation (GI): Soft to palpation and nontender : General: Yes no CVA tenderness Back/Spine/Pelvis: Back: no CVA tenderness Skin: General skin exam: no rashes or lesions noted Neuro: General: moves all extremities Cranial nerves: Yes Equal, round and reactive pupils present Extrem: General: Yes normal to inspection Psych: Appearance: grossly normal Assessment and Plan Assessment and plan (1) Pneumonia: Status: Acute (2) Abscess of lung with pneumonia: Status: Acute Plan Probable adriana abscess with no real objective or subjective improvement in 13 days. He still requires oxygen maybe just slow progress. I wonder if drainage may help ?chest tube,culture empyema if any. Continue Merem,nasal MRSA swab negative. Time Spent With Patient Time: Total time managing care of this patient today ____ minutes.
[2024-06-28] MEDS: guaiFENesin 200 MG/10 ML 10 ML LIQUID PO ×2 (06:22→18:40)
[2024-06-28] MEDS: Omeprazole 20 MG CAPSULE.DR PO ×2 (06:22→16:21)
[2024-06-28 07:17] VITALS: BP 112/76; PULSE 87; RESP 16; TEMP 36.1; O2SAT 88
[2024-06-28 07:45] VITALS: O2SAT 91
[2024-06-28] MEDS: Meropenem 1 GM VIAL IVPUSH ×3 (08:15→23:12)
[2024-06-28] MEDS: guaiFENesin DM 200/20/10 ML 10 ML SYRUP PO ×4 (08:15→20:30)
[2024-06-28] MEDS: Heparin Sodium,Porcine Flush 50 UNITS, 0.9 % Sodium Chloride Flush 5 ML IVFLUSH ×3 (08:16→20:38)
[2024-06-28] MEDS: 0.9 % Sodium Chloride Flush 3 ML SYRINGE IVFLUSH ×2 (08:28→16:23)
[2024-06-28 09:41] LABS: MANUAL DIFF FLAG NO
[2024-06-28 09:50] LABS: Basophils Absolute Auto 0.2 X10*3/uL (0.0-0.2); Eosinophils Absolute Auto 0.3 X10*3/uL (0.0-0.4); Eosinophils Percent Auto 1.7 % (0-4); Hemoglobin 19.4 g/dl (14.0-18.0); Imm Gran Abs Auto 0.32 X10*3/uL (0.00-0.03); Imm Gran Pct Auto 2.2 % (0.0-0.4); Lymphocytes Absolute Auto 2.1 X10*3/uL (1.2-4.9); Mean Corpuscular HGB Conc 35.1 g/dl (31.0-36.0); Mean Corpuscular Hemoglobin 30.6 pg (27.0-33.0); Mean Corpuscular Volume 86.9 fL (80.0-98.0); Mean Platelet Volume 9.2 fL (9.4-12.4); Monocytes Absolute Auto 1.1 X10*3/uL (0.1-1.2); Monocytes Percent Auto 7.6 % (2-11); Neutrophils Absolute Auto 10.8 x10*3/uL (2.0-8.3); Neutrophils Percent Auto 73.5 % (45-73); Platelet Count 411 X10*3/uL (160-400); Red Blood Count 6.35 X10*6/uL (4.60-5.80); Red Cell Distribution Width 12.5 % (11.0-16.0); White Blood Count 14.7 X10*3/uL (4.8-10.8)
[2024-06-28 09:52] LABS: Hematocrit 55.2 % (42.0-52.0)
[2024-06-28 10:06] LABS: Alanine Aminotransferase 18 U/L (0-40); Albumin Level 3.8 g/dL (3.5-5.0); Alkaline Phosphatase 90 U/L (39-117); Anion Gap 16 (12-20); Aspartate Amino Transferase 21 U/L (5-37); Bilirubin Total 0.6 mg/dL (0.0-1.0); Blood Urea Nitrogen 19 mg/dL (9-16); Calcium 9.5 mg/dL (8.4-10.2); Carbon Dioxide 24 mmol/L (22-29); Chloride 89 mmol/L (96-108); Creatinine Clr Calc Pharmacy 101.5; Estimated Glomerular Filt Rate > 60; Glucose Fasting 117 mg/dL (60-99); Potassium 4.2 mmol/L (3.3-5.1); Sodium 125 mmol/L (135-145); Total Protein 7.4 g/dL (6.5-8.0)
--- NOTE | 2024-06-28 11:40 | HO.PM.IMPN ---
Subjective Subjective Date of Service: 06/28/24 Interval History: No acute issues overnight. Still with significant O2 requirement Review of Systems Admits to chest pain with cough Admits to shortness of breath which has not improved Denies nausea vomiting diarrhea Denies fever chills Physical Exam Vital Signs: Vital Signs: Last Vital Signs Temp 96.9 F 06/28/24 07:17 Pulse 87 06/28/24 07:17 Resp 16 06/28/24 07:17 BP 112/76 06/28/24 07:17 Pulse Ox 91 L 06/28/24 07:45 O2 Del Method Oxymask 06/28/24 07:45 O2 Flow Rate 6 06/28/24 07:45 BMI result Body Mass Index 20.8 Const: Other: Awake alert no acute distress Resp: Other: Diminished left base greater than right base with diffuse crackles left base. Coarse rhonchi clear with cough Cardio: Other: No S4; positive S1-S2; no S3 murmurs rubs or gallops GI: Other: Soft nontender nondistended normoactive bowel sounds Extrem: Other: No edema bilaterally Objective Data Active Medications Acetaminophen (Acetaminophen 325 Mg Tablet) 650 mg PO Q6H PRN PRN Reason: Pain, Mild 1-3,fever,headache Al Hydroxide/Mg Hydroxide (Magnesium Hydrox/Alum Hydrox 30 Ml Oral.Susp) 30 ml PO Q6H PRN PRN Reason: heartburn Last Admin: 06/22/24 04:26 Dose: 30 ml Documented By: LES Benzocaine (Throat Lozenge, Medicated Lozenge) 1 lozenge MUCOUS MEM Q2H PRN PRN Reason: Sore Throat Last Admin: 06/25/24 21:51 Dose: 1 lozenge Documented By: TON Benzonatate (Benzonatate 100 Mg Capsule) 200 mg PO TID PRN PRN Reason: Cough Calcium Carbonate (Calcium Carbonate 750 Mg Tab.Chew) 750 mg PO Q4H PRN PRN Reason: Heartburn Last Admin: 06/22/24 09:47 Dose: 750 mg Documented By: ALVINA Heparin Sodium (Porcine) 50 (units/ Sodium Chloride 5 ml) 0 units IVFLUSH TID [facility] Last Admin: 06/28/24 08:16 Dose: 50 unit Documented By: BRIDGETTE Enoxaparin Sodium (Enoxaparin Sodium 40 Mg/0.4 Ml Syringe) 40 mg SUBCUT Q24H [facility] Last Admin: 06/27/24 15:32 Dose: 40 mg Documented By: BRIDGETTE Guaifenesin (Guaifenesin 200 Mg/10 Ml 10 Ml Liquid) 10 ml PO Q6H PRN PRN Reason: Cough Last Admin: 06/28/24 06:22 Dose: 10 ml Documented By: DEEPAK Guaifenesin/Dextromethorphan (Guaifenesin Dm 200/20/10 Ml 10 Ml Syrup) 10 ml PO QID [facility] Last Admin: 06/28/24 08:15 Dose: 10 ml Documented By: BRIDGETTE Magnesium Hydroxide (Milk Of Magnesia 30 Ml Oral.Susp) 30 ml PO DAILY PRN PRN Reason: Constipation Melatonin (Melatonin 3 Mg Tablet) 6 mg PO BEDTIME PRN PRN Reason: Insomnia Meropenem (Meropenem 1 Gm Vial) 1 gm IVPUSH Q8H [facility] Last Admin: 06/28/24 08:15 Dose: 1 gm Documented By: BRIDGETTE Nicotine Polacrilex (Nicotine Polacrilex Lozenge 2 Mg Lozenge) 2 mg BUCCAL Q2H PRN PRN Reason: Nicotine Cravings Omeprazole (Omeprazole 20 Mg Capsule.) 20 mg PO BID@0630,1630 [facility] Last Admin: 06/28/24 06:22 Dose: 20 mg Documented By: DEEPAK Ondansetron HCl (Ondansetron Hcl 4 Mg/2 Ml Vial) 4 mg IVPUSH Q8H PRN PRN Reason: Nausea and Vomiting Last Admin: 06/22/24 19:52 Dose: 4 mg Documented By: CLAUDIOZEJong Sodium Chloride (0.9 % Sodium Chloride Flush 3 Ml Syringe) 3 ml IVFLUSH QSHIFT [facility] Last Admin: 06/28/24 08:28 Dose: 3 ml Documented By: BRIDGETTE Labs 06/28/24 09:22 06/28/24 09:22 Labs: Laboratory Results - last 24 hr 06/28/24 09:22 MCV 86.9 MCH 30.6 MCHC 35.1 RDW 12.5 Plt Count 411 H MPV 9.2 L Immature Gran % (Auto) 2.2 H Neut % (Auto) 73.5 H Lymph % (Auto) 14.0 L [place] % (Auto) 7.6 Eos % (Auto) 1.7 Baso % (Auto) 1.0 Lymph # (Auto) 2.1 [place] # (Auto) 1.1 Eos # (Auto) 0.3 Baso # (Auto) 0.2 Abs Immat Gran (auto) 0.32 H Absolute Neuts (auto) 10.8 H Absolute Nucleated RBC 0.000 Nucleated RBC % (auto) 0.0 Anion Gap 16 Estim Creat Clear Calc 101.5 Estimated GFR > 60 Fasting Glucose 117 H Calcium 9.5 Total Bilirubin 0.6 AST 21 ALT 18 Alkaline Phosphatase 90 Total Protein 7.4 Albumin 3.8 Microbiology Microbiology Results: Microbiology 06/22/24 15:30 Gram Stain - Final Sputum - Expectorated Sputum Culture - Final Briseida albicans Assessment and Plan (1) Acute hypoxic respiratory failure: Status: Acute Plan 59yo M with no known PMHx but no current primary care for past 5 yr, 45 pack-year smoking history presenting with dyspnea, productive cough, and fatigue x 1 month;failed outpt therapy [levofloxacin x5d + doxycycline x10d];admitted for hypoxia and sepsis due to multifocal pneumonia with multiple abscesses 1.Acute hypoxic respiratory failrue and sepsis due to multifocal pneumonia with multiple abscesses -meropenem (5) -CT scan without acute changes; reviewed with Pulmonary. No changes in plan continue meropenem -no indication for chest drainage at this time per Pulmonary - wean O2 as tolerated; currently on 6L O2 2. Hyponatremia -follow renals/divalents -nephrology consult in a.m. 3.GERD - PPI, Maalox Enoxaparin Full code In my clinical judgment, the patient requires continued inpatient hospitalization for the following reasons: IV ABX, hypoxia Quality Stroke Does the patient have a stroke diagnosis?: No VTE Prior VTE?: No VTE Risk Level:: Medical - moderate - high VTE Device Contraindication: Treatment Not Indicated VTE Drug Contraindication: N/A - Med Ordered
[2024-06-28 12:15] VITALS: O2SAT 91
[2024-06-28 16:00] VITALS: BP 107/74; PULSE 84; RESP 19; TEMP 36.1; O2SAT 93
[2024-06-28] MEDS: Enoxaparin Sodium 40 MG/0.4 ML SYRINGE SUBCUT (16:21)
--- NOTE | 2024-06-28 17:20 | PC.NURSE ---
Pt noted to have Na of 125, MD Rodriguez made aware. Nephrology consulted. Per Jennifer to be redrawn in AM.
[2024-06-28 19:28] VITALS: BP 102/67; PULSE 90; RESP 17; TEMP 36.8; O2SAT 92
[2024-06-29] MEDS: guaiFENesin 200 MG/10 ML 10 ML LIQUID PO (02:31)
[2024-06-29 04:00] VITALS: RESP 17
[2024-06-29] MEDS: Omeprazole 20 MG CAPSULE.DR PO ×2 (05:17→16:09)
[2024-06-29 05:36] LABS: MANUAL DIFF FLAG NO
[2024-06-29 05:48] LABS: Basophils Absolute Auto 0.1 X10*3/uL (0.0-0.2); Basophils Percent Auto 0.9 % (0-2); Eosinophils Absolute Auto 0.3 X10*3/uL (0.0-0.4); Eosinophils Percent Auto 1.9 % (0-4); Hematocrit 54.9 % (42.0-52.0); Hemoglobin 19.3 g/dl (14.0-18.0); Imm Gran Pct Auto 2.2 % (0.0-0.4); Lymphocytes Absolute Auto 1.9 X10*3/uL (1.2-4.9); Lymphocytes Percent Auto 14.3 % (20-40); Mean Corpuscular HGB Conc 35.2 g/dl (31.0-36.0); Mean Corpuscular Hemoglobin 30.1 pg (27.0-33.0); Mean Corpuscular Volume 85.6 fL (80.0-98.0); Mean Platelet Volume 9.5 fL (9.4-12.4); Monocytes Absolute Auto 1.1 X10*3/uL (0.1-1.2); Neutrophils Absolute Auto 9.8 x10*3/uL (2.0-8.3); Neutrophils Percent Auto 72.7 % (45-73); Platelet Count 403 X10*3/uL (160-400); Red Blood Count 6.41 X10*6/uL (4.60-5.80); Red Cell Distribution Width 12.4 % (11.0-16.0); White Blood Count 13.5 X10*3/uL (4.8-10.8)
[2024-06-29 06:01] LABS: Alanine Aminotransferase 17 U/L (0-40); Albumin Level 3.7 g/dL (3.5-5.0); Alkaline Phosphatase 90 U/L (39-117); Anion Gap 17 (12-20); Aspartate Amino Transferase 25 U/L (5-37); Bilirubin Total 0.6 mg/dL (0.0-1.0); Blood Urea Nitrogen 17 mg/dL (9-16); Calcium 9.5 mg/dL (8.4-10.2); Carbon Dioxide 26 mmol/L (22-29); Chloride 85 mmol/L (96-108); Creatinine Clr Calc Pharmacy 100.1; Estimated Glomerular Filt Rate > 60; Glucose Fasting 107 mg/dL (60-99); Potassium 4.4 mmol/L (3.3-5.1); Sodium 124 mmol/L (135-145); Total Protein 7.5 g/dL (6.5-8.0)
[2024-06-29 07:47] VITALS: BP 122/73; PULSE 82; RESP 18; TEMP 36.3; O2SAT 90
[2024-06-29] MEDS: guaiFENesin DM 200/20/10 ML 10 ML SYRUP PO ×4 (08:28→21:13)
[2024-06-29] MEDS: Meropenem 1 GM VIAL IVPUSH ×3 (08:29→23:33)
[2024-06-29] MEDS: 0.9 % Sodium Chloride Flush 3 ML SYRINGE IVFLUSH ×2 (08:29→16:15)
[2024-06-29] MEDS: Heparin Sodium,Porcine Flush 50 UNITS, 0.9 % Sodium Chloride Flush 5 ML IVFLUSH ×3 (08:29→21:13)
--- NOTE | 2024-06-29 10:19 | P.CONNP_ITS ---
History of Present Illness Reason for Consult Consult date: 06/29/24 Reason for consult: Hyponatremia Chief Complaint Chief complaint: Pneumonia w/hypoxia, TB r/o History of Present Illness Narrative: 59-year-old male with no reported significant PMH, has not follow up with PCP in 5+ years, recently stopped smoking after [id number] hx who presents to the ED with?increasing SOB, difficulty breathing, productive cough, and fatigue x1 month. No fever or chills. No night sweats. Initially presented to walk-in clinic on 06/01/2023 where he was treated for pneumonia and prescribed levofloxacin and doxycycline. Pt reports symptoms improved while he was on antibiotics, though after completing prescription symptoms returned and worsened. Reports he has lost 15 lb in the last month, has chest tightness associated with deep breathing and chest pain associated with cough. No recent travel. No sick contacts. Pt reports stopped smoking after walk-in clinic visit Consulted for hyponatremia. Serum sodium has been gradually due decreasing. Recent sodium 124. Review of Systems Constitutional: Denies fever(s) and Denies weight loss Cardiovascular: Denies chest pain Respiratory: Reports cough and Denies hemoptysis Gastrointestinal: Denies abdominal pain, Denies diarrhea and Denies nausea Musculoskeletal: Denies back pain Denies focal weakness PMFSH Past Medical History Medical History Acute respiratory disease Wheezing on auscultation Cough Family History Family History Father Lung cancer Mother Unknown family medical history Family history: reviewed and not pertinent Social History Social History Household Members: Family Household Members Other:: mother and disabled brother Housing: Apartment Do you presently have visiting nurse or other home services: Yes Alcohol intake: former Patient Tobacco Use Status: Former Tobacco user Tobacco use type: Cigarette e-Cigarette/Vaping Use: Never Used Second Hand Smoke Exposure: No service: No Meds Allergies Allergy/AdvReac Type Severity Reaction Status Date / Time penicillin G Allergy Unknown unknown Verified 06/14/24 10:46 penicillin V Allergy Unknown unknown Verified 06/14/24 10:46 reaction Penicillins [PENICILLINS] Allergy Unknown UNKNOWN Verified 06/14/24 10:46 Active Medications: Current Medications Acetaminophen (Acetaminophen 325 Mg Tablet) 650 mg PO Q6H PRN PRN Reason: Pain, Mild 1-3,fever,headache Al Hydroxide/Mg Hydroxide (Magnesium Hydrox/Alum Hydrox 30 Ml Oral.Susp) 30 ml PO Q6H PRN PRN Reason: heartburn Last Admin: 06/22/24 04:26 Dose: 30 ml Benzocaine (Throat Lozenge, Medicated Lozenge) 1 lozenge MUCOUS MEM Q2H PRN PRN Reason: Sore Throat Last Admin: 06/25/24 21:51 Dose: 1 lozenge Benzonatate (Benzonatate 100 Mg Capsule) 200 mg PO TID PRN PRN Reason: Cough Calcium Carbonate (Calcium Carbonate 750 Mg Tab.Chew) 750 mg PO Q4H PRN PRN Reason: Heartburn Last Admin: 06/22/24 09:47 Dose: 750 mg Heparin Sodium (Porcine) 50 (units/ Sodium Chloride 5 ml) 0 units IVFLUSH TID [facility] Last Admin: 06/29/24 08:29 Dose: 50 unit Enoxaparin Sodium (Enoxaparin Sodium 40 Mg/0.4 Ml Syringe) 40 mg SUBCUT Q24H [facility] Last Admin: 06/28/24 16:21 Dose: 40 mg Guaifenesin (Guaifenesin 200 Mg/10 Ml 10 Ml Liquid) 10 ml PO Q6H PRN PRN Reason: Cough Last Admin: 06/29/24 02:31 Dose: 10 ml Guaifenesin/Dextromethorphan (Guaifenesin Dm 200/20/10 Ml 10 Ml Syrup) 10 ml PO QID [facility] Last Admin: 06/29/24 08:28 Dose: 10 ml Magnesium Hydroxide (Milk Of Magnesia 30 Ml Oral.Susp) 30 ml PO DAILY PRN PRN Reason: Constipation Melatonin (Melatonin 3 Mg Tablet) 6 mg PO BEDTIME PRN PRN Reason: Insomnia Meropenem (Meropenem 1 Gm Vial) 1 gm IVPUSH Q8H [facility] Last Admin: 06/29/24 08:29 Dose: 1 gm Nicotine Polacrilex (Nicotine Polacrilex Lozenge 2 Mg Lozenge) 2 mg BUCCAL Q2H PRN PRN Reason: Nicotine Cravings Omeprazole (Omeprazole 20 Mg Capsule.Dr) 20 mg PO BID@0630,1630 [facility] Last Admin: 06/29/24 05:17 Dose: 20 mg Ondansetron HCl (Ondansetron Hcl 4 Mg/2 Ml Vial) 4 mg IVPUSH Q8H PRN PRN Reason: Nausea and Vomiting Last Admin: 06/22/24 19:52 Dose: 4 mg Sodium Chloride (0.9 % Sodium Chloride Flush 3 Ml Syringe) 3 ml IVFLUSH QSHIFT [facility] Last Admin: 06/29/24 08:29 Dose: 3 ml Home Medications ?Medication ?Instructions ?Recorded ?Confirmed ?Last Taken ?Type albuterol sulfate 90 mcg/actuation 2 puff inhalation Q6H PRN 06/14/24 06/14/24 Unknown History aerosol inhaler shortness of breath or wheezing ibuprofen 400 mg tablet 400 mg PO Q8H PRN Pain 06/14/24 06/14/24 Unknown History Physical Exam Vital Signs: Last Vital Signs Temp 97.3 F 06/29/24 07:47 Pulse 82 06/29/24 07:47 Resp 18 06/29/24 07:47 BP 122/73 06/29/24 07:47 Pulse Ox 90 L 06/29/24 07:47 O2 Del Method Oxymask 06/29/24 07:47 O2 Flow Rate 6.0 06/29/24 07:47 BMI result Body Mass Index 20.8 Comfortable Neck supple no JVD. Lungs entry equal no rales. Heart S1-S2 heard no gallop or rub. Abdomen soft nontender. Neuro alert awake oriented. No asterixis. Extremities no edema. Results Lab Results 06/30/24 05:34 06/30/24 05:34 Lab results: Chemistry 06/27/24 06/28/24 06/29/24 05:37 09:22 05:09 Sodium 128 L 125 L 124 L Potassium 3.5 4.2 4.4 Carbon Dioxide 28 24 26 BUN 17 H 19 H 17 H Creatinine 0.71 0.72 0.73 Calcium 9.7 9.5 9.5 Hematology 06/27/24 06/28/24 06/29/24 05:37 09:22 05:09 WBC 13.8 H 14.7 H 13.5 H Hgb 19.2 H 19.4 H 19.3 H Plt Count 352 411 H 403 H Assessment and Plan (1) Hyponatremia: Status: Acute Plan 59-year-old man with chronic asymptomatic hyponatremia in the setting of pulmonary pathology. Differential diagnosis includes euvolemic hyponatremia versus hypovolemic hyponatremia. Recommendations Check urine sodium, osmolality. Urine creatinine. Check serum osmolality TSH and cortisol. Limit oral free water intake to 1.2 L per 24 hours. Goal is to correct serum sodium at a rate of 0.5 millimole per L/hr and not exceed more than 10 millimoles in a 24 hour. No absolute indication for hypertonic saline at this time. She will follow along with the team Procedures Date of Service Date of Service: 06/30/24
--- NOTE | 2024-06-29 11:24 | MHC.CM.PN ---
Per MD rounds patient is not medically cleared to discharge , NA+124. DP Jarred Carcamo for Pulmonary Rehab. Patient will transport via BLS to [facility].
--- NOTE | 2024-06-29 13:44 | P.PNIM_ITS ---
Subjective Subjective Date of Service: 06/29/24 Interval History: No acute issues overnight. Sodium slowly drifting downward Review of Systems Admits to chest pain with cough Admits to shortness of breath which has not improved Denies nausea vomiting diarrhea Denies fever chills Physical Exam 2 Vital Signs: Vital Signs: Last Vital Signs Temp 97.3 F 06/29/24 07:47 Pulse 82 06/29/24 07:47 Resp 18 06/29/24 07:47 BP 122/73 06/29/24 07:47 Pulse Ox 90 L 06/29/24 07:47 O2 Del Method Oxymask 06/29/24 07:47 O2 Flow Rate 6.0 06/29/24 07:47 BMI result Body Mass Index 20.8 Const: Other: Awake alert no acute distress Resp: Other: Diminished left base greater than right base with diffuse crackles left base. Coarse rhonchi clear with cough Cardio: Other: No S4; positive S1-S2; no S3 murmurs rubs or gallops GI: Other: Soft nontender nondistended normoactive bowel sounds Extrem: Other: No edema bilaterally Objective Data Active Medications Acetaminophen (Acetaminophen 325 Mg Tablet) 650 mg PO Q6H PRN PRN Reason: Pain, Mild 1-3,fever,headache Al Hydroxide/Mg Hydroxide (Magnesium Hydrox/Alum Hydrox 30 Ml Oral.Susp) 30 ml PO Q6H PRN PRN Reason: heartburn Last Admin: 06/22/24 04:26 Dose: 30 ml Documented By: LES Benzocaine (Throat Lozenge, Medicated Lozenge) 1 lozenge MUCOUS MEM Q2H PRN PRN Reason: Sore Throat Last Admin: 06/25/24 21:51 Dose: 1 lozenge Documented By: TON Benzonatate (Benzonatate 100 Mg Capsule) 200 mg PO TID PRN PRN Reason: Cough Calcium Carbonate (Calcium Carbonate 750 Mg Tab.Chew) 750 mg PO Q4H PRN PRN Reason: Heartburn Last Admin: 06/22/24 09:47 Dose: 750 mg Documented By: ALVINA Heparin Sodium (Porcine) 50 (units/ Sodium Chloride 5 ml) 0 units IVFLUSH TID [facility] Last Admin: 06/29/24 08:29 Dose: 50 unit Documented By: VENECIA Enoxaparin Sodium (Enoxaparin Sodium 40 Mg/0.4 Ml Syringe) 40 mg SUBCUT Q24H [facility] Last Admin: 06/28/24 16:21 Dose: 40 mg Documented By: BRIDGETTE Guaifenesin (Guaifenesin 200 Mg/10 Ml 10 Ml Liquid) 10 ml PO Q6H PRN PRN Reason: Cough Last Admin: 06/29/24 02:31 Dose: 10 ml Documented By: DEEPAK Guaifenesin/Dextromethorphan (Guaifenesin Dm 200/20/10 Ml 10 Ml Syrup) 10 ml PO QID [facility] Last Admin: 06/29/24 12:01 Dose: 10 ml Documented By: VENECIA Magnesium Hydroxide (Milk Of Magnesia 30 Ml Oral.Susp) 30 ml PO DAILY PRN PRN Reason: Constipation Melatonin (Melatonin 3 Mg Tablet) 6 mg PO BEDTIME PRN PRN Reason: Insomnia Meropenem (Meropenem 1 Gm Vial) 1 gm IVPUSH Q8H [facility] Last Admin: 06/29/24 08:29 Dose: 1 gm Documented By: VENECIA Nicotine Polacrilex (Nicotine Polacrilex Lozenge 2 Mg Lozenge) 2 mg BUCCAL Q2H PRN PRN Reason: Nicotine Cravings Omeprazole (Omeprazole 20 Mg Capsule.) 20 mg PO BID@0630,1630 [facility] Last Admin: 06/29/24 05:17 Dose: 20 mg Documented By: DEEPAK Ondansetron HCl (Ondansetron Hcl 4 Mg/2 Ml Vial) 4 mg IVPUSH Q8H PRN PRN Reason: Nausea and Vomiting Last Admin: 06/22/24 19:52 Dose: 4 mg Documented By: TEMO-SHARIFZEB Sodium Chloride (0.9 % Sodium Chloride Flush 3 Ml Syringe) 3 ml IVFLUSH QSHIFT [facility] Last Admin: 06/29/24 08:29 Dose: 3 ml Documented By: VENECIA Labs 06/29/24 05:09 06/29/24 05:09 Labs: Laboratory Results - last 24 hr 06/29/24 05:09 MCV 85.6 MCH 30.1 MCHC 35.2 RDW 12.4 Plt Count 403 H MPV 9.5 Immature Gran % (Auto) 2.2 H Neut % (Auto) 72.7 Lymph % (Auto) 14.3 L [place] % (Auto) 8.0 Eos % (Auto) 1.9 Baso % (Auto) 0.9 Lymph # (Auto) 1.9 [place] # (Auto) 1.1 Eos # (Auto) 0.3 Baso # (Auto) 0.1 Abs Immat Gran (auto) 0.30 H Absolute Neuts (auto) 9.8 H Absolute Nucleated RBC 0.000 Nucleated RBC % (auto) 0.0 Anion Gap 17 Estim Creat Clear Calc 100.1 Estimated GFR > 60 Fasting Glucose 107 H Calcium 9.5 Total Bilirubin 0.6 AST 25 ALT 17 Alkaline Phosphatase 90 Total Protein 7.5 Albumin 3.7 Assessment and Plan (1) Abscess of lung with pneumonia: Status: Acute (2) Hyponatremia: Status: Acute Plan 59yo M with no known PMHx but no current primary care for past 5 yr, 45 pack- year smoking history presenting with dyspnea, productive cough, and fatigue x 1 month;failed outpt therapy [levofloxacin x5d + doxycycline x10d];admitted for hypoxia and sepsis due to multifocal pneumonia with multiple abscesses 1.Acute hypoxic respiratory failrue and sepsis due to multifocal pneumonia with multiple abscesses -meropenem (6) -CT scan without acute changes; reviewed with Pulmonary. No changes in plan continue meropenem -no indication for chest drainage at this time per Pulmonary - wean O2 as tolerated; currently on 6L O2 2. Hyponatremia -follow renals/divalents -renal recommendations in place 3.GERD - PPI, Maalox Enoxaparin Full code In my clinical judgment, the patient requires continued inpatient hospitalization for the following reasons: IV ABX, hypoxia Quality Stroke Does the patient have a stroke diagnosis?: No VTE Prior VTE?: No VTE Risk Level:: Medical - moderate - high VTE Device Contraindication: Treatment Not Indicated VTE Drug Contraindication: N/A - Med Ordered
[2024-06-29 14:16] LABS: Osmolality, Serum 260 mosm/kg (281-305)
[2024-06-29 14:42] VITALS: PULSE 122; O2SAT 93
[2024-06-29 15:07] VITALS: BP 111/68; PULSE 85; RESP 16; TEMP 36.7; O2SAT 93
[2024-06-29 15:49] LABS: Sodium Urine Random < 20.0 mmol/L
[2024-06-29 15:50] LABS: Creatinine Urine 93.68 mg/dL
[2024-06-29] MEDS: Enoxaparin Sodium 40 MG/0.4 ML SYRINGE SUBCUT (16:10)
[2024-06-29 19:35] VITALS: BP 117/71; PULSE 80; RESP 16; TEMP 36.6; O2SAT 93
[2024-06-30 04:00] VITALS: BP 109/73; PULSE 88; RESP 18; TEMP 36.5; O2SAT 91
[2024-06-30] MEDS: Omeprazole 20 MG CAPSULE.DR PO ×2 (05:35→16:07)
[2024-06-30 05:50] LABS: MANUAL DIFF FLAG NO
[2024-06-30 06:03] LABS: Basophils Absolute Auto 0.1 X10*3/uL (0.0-0.2); Basophils Percent Auto 0.9 % (0-2); Eosinophils Absolute Auto 0.2 X10*3/uL (0.0-0.4); Eosinophils Percent Auto 1.4 % (0-4); Hematocrit 54.4 % (42.0-52.0); Hemoglobin 19.2 g/dl (14.0-18.0); Imm Gran Abs Auto 0.28 X10*3/uL (0.00-0.03); Lymphocytes Absolute Auto 1.9 X10*3/uL (1.2-4.9); Lymphocytes Percent Auto 13.7 % (20-40); Mean Corpuscular HGB Conc 35.3 g/dl (31.0-36.0); Mean Corpuscular Volume 85.1 fL (80.0-98.0); Monocytes Percent Auto 7.3 % (2-11); Neutrophils Absolute Auto 10.5 x10*3/uL (2.0-8.3); Neutrophils Percent Auto 74.7 % (45-73); Platelet Count 402 X10*3/uL (160-400); Red Blood Count 6.39 X10*6/uL (4.60-5.80); Red Cell Distribution Width 12.2 % (11.0-16.0); White Blood Count 14.1 X10*3/uL (4.8-10.8)
[2024-06-30 06:16] LABS: Alanine Aminotransferase 19 U/L (0-40); Albumin Level 3.7 g/dL (3.5-5.0); Anion Gap 18 (12-20); Aspartate Amino Transferase 21 U/L (5-37); Bilirubin Total 0.6 mg/dL (0.0-1.0); Blood Urea Nitrogen 21 mg/dL (9-16); Calcium 9.7 mg/dL (8.4-10.2); Carbon Dioxide 27 mmol/L (22-29); Chloride 83 mmol/L (96-108); Creatinine Clr Calc Pharmacy 100.1; Estimated Glomerular Filt Rate > 60; Glucose Fasting 127 mg/dL (60-99); Potassium 4.2 mmol/L (3.3-5.1); Sodium 124 mmol/L (135-145)
[2024-06-30 06:20] LABS: Alkaline Phosphatase 95 U/L (39-117)
[2024-06-30 06:29] LABS: Cortisol Random 20.8 ug/dL
[2024-06-30 06:33] LABS: Thyroid Stimulating Hormone 4.05 uIU/mL (0.32-4.0)
[2024-06-30 07:38] VITALS: BP 109/72; PULSE 89; RESP 18; TEMP 36.8; O2SAT 91
[2024-06-30] MEDS: guaiFENesin DM 200/20/10 ML 10 ML SYRUP PO ×4 (08:15→21:07)
[2024-06-30] MEDS: Heparin Sodium,Porcine Flush 50 UNITS, 0.9 % Sodium Chloride Flush 5 ML IVFLUSH (08:15)
[2024-06-30] MEDS: Meropenem 1 GM VIAL IVPUSH ×2 (08:15→16:07)
[2024-06-30] MEDS: 0.9 % Sodium Chloride 1,000 ML 50 ML IVCONT (09:29)
[2024-06-30 09:30] LABS: Free T4 (Free Thyroxine) 1.28 ng/dL (0.71-1.85)
--- NOTE | 2024-06-30 09:57 | PM.PNNEP ---
Subjective Subjective Date of Service: 06/30/24 Interval history: No acute issues overnight. Sodium slowly drifting downward Physical Exam Vital Signs: Vital Signs: Last Vital Signs Temp 98.3 F 06/30/24 07:38 Pulse 89 06/30/24 07:38 Resp 18 06/30/24 07:38 BP 109/72 06/30/24 07:38 Pulse Ox 91 L 06/30/24 07:38 O2 Del Method Oxymask 06/30/24 07:38 O2 Flow Rate 6.0 06/30/24 07:38 BMI result Body Mass Index 20.8 Awake. Comfortable. Neck is supple. Mucosa moist. Lungs bilateral scattered rhonchi. Heart S1-S2 heard no gallop. Abdomen soft. Extremities no edema. No involuntary movements. No myoclonus. Objective Data Labs 06/30/24 05:34 06/30/24 05:34 Labs: Laboratory Results - last 24 hr 06/29/24 06/29/24 06/30/24 05:09 15:15 05:34 WBC 14.1 H RBC 6.39 H Hgb 19.2 H Hct 54.4 H MCV 85.1 MCH 30.0 MCHC 35.3 RDW 12.2 Plt Count 402 H MPV 9.0 L Immature Gran % (Auto) 2.0 H Neut % (Auto) 74.7 H Lymph % (Auto) 13.7 L [place] % (Auto) 7.3 Eos % (Auto) 1.4 Baso % (Auto) 0.9 Lymph # (Auto) 1.9 [place] # (Auto) 1.0 Eos # (Auto) 0.2 Baso # (Auto) 0.1 Abs Immat Gran (auto) 0.28 H Absolute Neuts (auto) 10.5 H Absolute Nucleated RBC 0.000 Nucleated RBC % (auto) 0.0 Sodium 124 L Potassium 4.2 Chloride 83 L Carbon Dioxide 27 Anion Gap 18 BUN 21 H Creatinine 0.73 Estim Creat Clear Calc 100.1 Estimated GFR > 60 Fasting Glucose 127 H Osmolality 260 L Calcium 9.7 Total Bilirubin 0.6 AST 21 ALT 19 Alkaline Phosphatase 95 Total Protein 7.0 Albumin 3.7 TSH 4.05 H Free T4 1.28 Random Cortisol 20.8 Ur Random Sodium < 20.0 Urine Creatinine 93.68 Microbiology Microbiology Results: Microbiology 06/22/24 15:30 Sputum - Expectorated Gram Stain - Final 06/22/24 15:30 Sputum - Expectorated Sputum Culture - Final Briseida albicans 06/14/24 11:04 Blood - Venous Blood Culture - Final No growth after 5 days. 06/14/24 11:04 Blood - Venous Blood Culture - Final No growth after 5 days. 06/14/24 16:08 Sputum - Expectorated Direct Acid Fast Bacilli Smear - Final 06/16/24 03:15 Sputum - Expectorated Direct Acid Fast Bacilli Smear - Final 06/16/24 10:30 Sputum - Expectorated Direct Acid Fast Bacilli Smear - Final Procedures Date of Service Date of Service: 06/30/24 Assessment & Plan Assessment and plan (1) Hyponatremia: Status: Acute Plan 59-year-old man with chronic asymptomatic hyponatremia in the setting of pulmonary pathology. Differential diagnosis includes euvolemic hyponatremia versus hypovolemic hyponatremia. Low urine sodium suggestive of hypoperfusion from hypovolemia. Would not label this as SIADH until he is euvolemic. Serum cortisol is normal. TSH is marginally elevated and not significant. Would administer normal saline 50 cc/hour x1 L and reassess serum sodium. Limit oral free water intake to 1.2 L per 24 hours. Goal is to correct serum sodium at a rate of 0.5 millimole per L/hr and not exceed more than 10 millimoles in a 24 hour. No absolute indication for hypertonic saline at this time. We will follow along with the team Time Spent With Patient Time: Total time managing care of this patient today ____ minutes. Progress Note: Quality Stroke Does the patient have a stroke diagnosis?: No
--- NOTE | 2024-06-30 14:32 | HO.PM.IMPN ---
Subjective Subjective Date of Service: 06/30/24 Interval History: coughing up copious sputum still on 6L feels chills but no fever Review of Systems Review of Systems: Yes all other systems are reviewed and are negative Physical Exam Vital Signs: Vital Signs: Last Vital Signs Temp 98.3 F 06/30/24 07:38 Pulse 89 06/30/24 07:38 Resp 18 06/30/24 07:38 BP 109/72 06/30/24 07:38 Pulse Ox 91 L 06/30/24 07:38 O2 Del Method Oxymask 06/30/24 07:38 O2 Flow Rate 6.0 06/30/24 07:38 BMI result Body Mass Index 20.8 Gen: in no acute distress HEENT: sclera anicteric, moist mucus membranes Neck: supple Lungs: diminished L>R, wet inspiratory crackles L side Heart: regular rate and rhythm, no murmurs Abd: soft, non-tender, non-distended Ext: no edema, R basilic midline Skin: warm/well-perfused Neuro: alert and oriented x3, no focal findings Psych: appropriate affect Objective Data Active Medications Acetaminophen (Acetaminophen 325 Mg Tablet) 650 mg PO Q6H PRN PRN Reason: Pain, Mild 1-3,fever,headache Al Hydroxide/Mg Hydroxide (Magnesium Hydrox/Alum Hydrox 30 Ml Oral.Susp) 30 ml PO Q6H PRN PRN Reason: heartburn Last Admin: 06/22/24 04:26 Dose: 30 ml Documented By: LES Benzocaine (Throat Lozenge, Medicated Lozenge) 1 lozenge MUCOUS MEM Q2H PRN PRN Reason: Sore Throat Last Admin: 06/25/24 21:51 Dose: 1 lozenge Documented By: TON Benzonatate (Benzonatate 100 Mg Capsule) 200 mg PO TID PRN PRN Reason: Cough Calcium Carbonate (Calcium Carbonate 750 Mg Tab.Chew) 750 mg PO Q4H PRN PRN Reason: Heartburn Last Admin: 06/22/24 09:47 Dose: 750 mg Documented By: ALVINA Heparin Sodium (Porcine) 50 (units/ Sodium Chloride 5 ml) 0 units IVFLUSH TID [facility] Last Admin: 06/30/24 08:15 Dose: 5 unit Documented By: NACHO Enoxaparin Sodium (Enoxaparin Sodium 40 Mg/0.4 Ml Syringe) 40 mg SUBCUT Q24H [facility] Last Admin: 06/29/24 16:10 Dose: 40 mg Documented By: VENECIA Guaifenesin (Guaifenesin 200 Mg/10 Ml 10 Ml Liquid) 10 ml PO Q6H PRN PRN Reason: Cough Last Admin: 06/29/24 02:31 Dose: 10 ml Documented By: DEEPAK Guaifenesin/Dextromethorphan (Guaifenesin Dm 200/20/10 Ml 10 Ml Syrup) 10 ml PO QID [facility] Last Admin: 06/30/24 12:05 Dose: 10 ml Documented By: NACHO Sodium Chloride (Ns) 1,000 mls @ 50 mls/hr IVCONT .Q20H [facility] Stop: 07/01/24 04:44 Last Admin: 06/30/24 09:29 Dose: 50 mls/hr Documented By: NACHO Magnesium Hydroxide (Milk Of Magnesia 30 Ml Oral.Susp) 30 ml PO DAILY PRN PRN Reason: Constipation Melatonin (Melatonin 3 Mg Tablet) 6 mg PO BEDTIME PRN PRN Reason: Insomnia Meropenem (Meropenem 1 Gm Vial) 1 gm IVPUSH Q8H [facility] Last Admin: 06/30/24 08:15 Dose: 1 gm Documented By: NACHO Nicotine Polacrilex (Nicotine Polacrilex Lozenge 2 Mg Lozenge) 2 mg BUCCAL Q2H PRN PRN Reason: Nicotine Cravings Omeprazole (Omeprazole 20 Mg Capsule.) 20 mg PO BID@0630,1630 [facility] Last Admin: 06/30/24 05:35 Dose: 20 mg Documented By: EMEKA Ondansetron HCl (Ondansetron Hcl 4 Mg/2 Ml Vial) 4 mg IVPUSH Q8H PRN PRN Reason: Nausea and Vomiting Last Admin: 06/22/24 19:52 Dose: 4 mg Documented By: CLAUDIOZEB Sodium Chloride (0.9 % Sodium Chloride Flush 3 Ml Syringe) 3 ml IVFLUSH QSHIFT [facility] Last Admin: 06/30/24 08:22 Dose: Not Given Documented By: NACHO Non-Admin Reason: midline Labs 06/30/24 05:34 06/30/24 05:34 Labs: Laboratory Results - last 24 hr 06/29/24 06/30/24 15:15 05:34 MCV 85.1 MCH 30.0 MCHC 35.3 RDW 12.2 Plt Count 402 H MPV 9.0 L Immature Gran % (Auto) 2.0 H Neut % (Auto) 74.7 H Lymph % (Auto) 13.7 L [place] % (Auto) 7.3 Eos % (Auto) 1.4 Baso % (Auto) 0.9 Lymph # (Auto) 1.9 [place] # (Auto) 1.0 Eos # (Auto) 0.2 Baso # (Auto) 0.1 Abs Immat Gran (auto) 0.28 H Absolute Neuts (auto) 10.5 H Absolute Nucleated RBC 0.000 Nucleated RBC % (auto) 0.0 Anion Gap 18 Estim Creat Clear Calc 100.1 Estimated GFR > 60 Fasting Glucose 127 H Calcium 9.7 Total Bilirubin 0.6 AST 21 ALT 19 Alkaline Phosphatase 95 Total Protein 7.0 Albumin 3.7 TSH 4.05 H Free T4 1.28 Random Cortisol 20.8 Ur Random Sodium < 20.0 Urine Creatinine 93.68 Assessment and Plan (1) Abscess of lung with pneumonia: Status: Acute (2) Hyponatremia: Status: Acute Plan d17 for 59yo M with no known PMHx but no current primary care for past 5 yr, 45 pack-year smoking history presenting with dyspnea, productive cough, and fatigue x 1 month failed outpt therapy [levofloxacin x5d + doxycycline x10d] admitted for hypoxia and sepsis due to multifocal pneumonia with multiple abscesses acute hypoxic respiratory failrue and sepsis due to multifocal pneumonia with multiple abscesses - vancomycin 06/14-06/17 [MRSA swab negative], cefepime 06/14-06/24, metronidazole 06/16-06/24, azithromycin 06/17-06/24; changed to meropenem 06/24 and plan ertapenem to complete 4 wk IV ABX per ID; end date 07/12; midline placed 06/24 - Legionella UAg negative, T-spot IGRA negative, TB PCR negative, AFB smear x3 negative, HIV negative; per ID yeast in sputum not significant unless Cryptococcus sp. - ID + Pulm consulted; unable to drain due to risk of pleural fistula; medical treatment with ABX recomemnded - wean O2 as tolerated; currently on 6L O2 hypoNa - on fluid restriction [will liberalize to 1500 mL/d] for suspicion of SIADH but appears to be in part hypovolemic given Caren <20; will give NS x 1L and recheck BMP in AM erythrocytosis - likely secondary to hypoxia from COPD; therapeutic phlebotomy per Heme-Onc due to increased risk of thrombosis; epo level normal; monitor CBC periodically GERD - PPI, Maalox tobacco abuse - NRT VTE ppx - enoxaparin dispo - PT evaluation: IPR recommended In my clinical judgment, the patient requires continued inpatient hospitalization for the following reasons: IV ABX, hypoxia, hypoNa Total time managing care of this patient today: 35 minutes. Quality Stroke Does the patient have a stroke diagnosis?: No VTE Prior VTE?: No VTE Risk Level:: Medical - moderate - high VTE Device Contraindication: Treatment Not Indicated VTE Drug Contraindication: N/A - Med Ordered
[2024-06-30 15:40] VITALS: BP 105/67; PULSE 82; RESP 18; TEMP 37; O2SAT 93
[2024-06-30] MEDS: Enoxaparin Sodium 40 MG/0.4 ML SYRINGE SUBCUT (16:08)
[2024-06-30 19:23] VITALS: BP 113/67; PULSE 93; RESP 18; TEMP 36; O2SAT 93
[2024-07-01] MEDS: Meropenem 1 GM VIAL IVPUSH ×3 (00:09→15:18)
[2024-07-01 03:02] VITALS: BP 100/77; PULSE 81; RESP 18; TEMP 36; O2SAT 93
[2024-07-01 05:42] LABS: MANUAL DIFF FLAG NO
[2024-07-01] MEDS: Omeprazole 20 MG CAPSULE.DR PO ×2 (05:43→16:22)
[2024-07-01 05:50] LABS: Basophils Absolute Auto 0.2 X10*3/uL (0.0-0.2); Basophils Percent Auto 0.9 % (0-2); Eosinophils Absolute Auto 0.2 X10*3/uL (0.0-0.4); Eosinophils Percent Auto 1.4 % (0-4); Hemoglobin 18.9 g/dl (14.0-18.0); Imm Gran Abs Auto 0.29 X10*3/uL (0.00-0.03); Imm Gran Pct Auto 1.8 % (0.0-0.4); Lymphocytes Absolute Auto 2.2 X10*3/uL (1.2-4.9); Lymphocytes Percent Auto 13.5 % (20-40); Mean Corpuscular Hemoglobin 30.1 pg (27.0-33.0); Mean Corpuscular Volume 86.1 fL (80.0-98.0); Mean Platelet Volume 9.4 fL (9.4-12.4); Monocytes Absolute Auto 1.2 X10*3/uL (0.1-1.2); Monocytes Percent Auto 7.5 % (2-11); Neutrophils Absolute Auto 12.2 x10*3/uL (2.0-8.3); Neutrophils Percent Auto 74.9 % (45-73); Platelet Count 384 X10*3/uL (160-400); Red Blood Count 6.27 X10*6/uL (4.60-5.80); Red Cell Distribution Width 12.3 % (11.0-16.0); White Blood Count 16.3 X10*3/uL (4.8-10.8)
[2024-07-01 06:13] LABS: Alanine Aminotransferase 24 U/L (0-40); Albumin Level 3.8 g/dL (3.5-5.0); Alkaline Phosphatase 112 U/L (39-117); Anion Gap 16 (12-20); Aspartate Amino Transferase 20 U/L (5-37); Bilirubin Total 0.5 mg/dL (0.0-1.0); Blood Urea Nitrogen 25 mg/dL (9-16); Calcium 9.5 mg/dL (8.4-10.2); Carbon Dioxide 27 mmol/L (22-29); Chloride 86 mmol/L (96-108); Creatinine Clr Calc Pharmacy 101.5; Estimated Glomerular Filt Rate > 60; Glucose Fasting 116 mg/dL (60-99); Potassium 4.5 mmol/L (3.3-5.1); Sodium 124 mmol/L (135-145); Total Protein 6.7 g/dL (6.5-8.0)
[2024-07-01 06:51] VITALS: BP 113/80; PULSE 73; RESP 16; TEMP 36.6; O2SAT 91
[2024-07-01] MEDS: guaiFENesin DM 200/20/10 ML 10 ML SYRUP PO ×4 (07:37→20:01)
[2024-07-01] MEDS: 0.9 % Sodium Chloride 1,000 ML 75 ML IVCONT (07:52)
--- NOTE | 2024-07-01 10:18 | HO.PM.IMPN ---
Subjective Subjective Date of Service: 07/01/24 Interval History: coughing up yellow sputum Na unchanged afebrile Review of Systems Review of Systems: Yes all other systems are reviewed and are negative Physical Exam Vital Signs: Vital Signs: Last Vital Signs Temp 97.9 F 07/01/24 06:51 Pulse 73 07/01/24 06:51 Resp 16 07/01/24 06:51 BP 113/80 07/01/24 06:51 Pulse Ox 91 L 07/01/24 06:51 O2 Del Method Oxymask 07/01/24 06:51 O2 Flow Rate 6 07/01/24 06:51 BMI result Body Mass Index 20.8 Gen: in no acute distress HEENT: sclera anicteric, moist mucus membranes Neck: supple Lungs: diminished L>R, wet inspiratory crackles L side Heart: regular rate and rhythm, no murmurs Abd: soft, non-tender, non-distended Ext: no edema, R basilic midline Skin: warm/well-perfused Neuro: alert and oriented x3, no focal findings Psych: appropriate affect Objective Data Active Medications Acetaminophen (Acetaminophen 325 Mg Tablet) 650 mg PO Q6H PRN PRN Reason: Pain, Mild 1-3,fever,headache Al Hydroxide/Mg Hydroxide (Magnesium Hydrox/Alum Hydrox 30 Ml Oral.Susp) 30 ml PO Q6H PRN PRN Reason: heartburn Last Admin: 06/22/24 04:26 Dose: 30 ml Documented By: LES Benzocaine (Throat Lozenge, Medicated Lozenge) 1 lozenge MUCOUS MEM Q2H PRN PRN Reason: Sore Throat Last Admin: 06/25/24 21:51 Dose: 1 lozenge Documented By: TON Benzonatate (Benzonatate 100 Mg Capsule) 200 mg PO TID PRN PRN Reason: Cough Calcium Carbonate (Calcium Carbonate 750 Mg Tab.Chew) 750 mg PO Q4H PRN PRN Reason: Heartburn Last Admin: 06/22/24 09:47 Dose: 750 mg Documented By: ALVINA Heparin Sodium (Porcine) 50 (units/ Sodium Chloride 5 ml) 0 units IVFLUSH TID [facility]PLACED BY [facility] Last Admin: 07/01/24 07:38 Dose: Not Given Documented By: VICK Non-Admin Reason: IV Running Enoxaparin Sodium (Enoxaparin Sodium 40 Mg/0.4 Ml Syringe) 40 mg SUBCUT Q24H [facility]PLACED BY [facility] Last Admin: 06/30/24 16:08 Dose: 40 mg Documented By: NACHO Guaifenesin (Guaifenesin 200 Mg/10 Ml 10 Ml Liquid) 10 ml PO Q6H PRN PRN Reason: Cough Last Admin: 06/29/24 02:31 Dose: 10 ml Documented By: DEEPAK Guaifenesin/Dextromethorphan (Guaifenesin Dm 200/20/10 Ml 10 Ml Syrup) 10 ml PO QID [facility]PLACED BY [facility] Last Admin: 07/01/24 07:37 Dose: 10 ml Documented By: VICK Sodium Chloride (Ns) 1,000 mls @ 75 mls/hr IVCONT .[id number] REPLACED BY [facility] Stop: 07/02/24 03:44 Last Admin: 07/01/24 07:52 Dose: 75 mls/hr Documented By: VICK Magnesium Hydroxide (Milk Of Magnesia 30 Ml Oral.Susp) 30 ml PO DAILY PRN PRN Reason: Constipation Melatonin (Melatonin 3 Mg Tablet) 6 mg PO BEDTIME PRN PRN Reason: Insomnia Meropenem (Meropenem 1 Gm Vial) 1 gm IVPUSH Q8H [facility]PL[facility]ED BY [facility] Last Admin: 07/01/24 07:37 Dose: 1 gm Documented By: VICK Nicotine Polacrilex (Nicotine Polacrilex Lozenge 2 Mg Lozenge) 2 mg BUCCAL Q2H PRN PRN Reason: Nicotine Cravings Omeprazole (Omeprazole 20 Mg Capsule.) 20 mg PO BID@0630,1630 [facility]PLACED BY [facility] Last Admin: 07/01/24 05:43 Dose: 20 mg Documented By: EMEKA Ondansetron HCl (Ondansetron Hcl 4 Mg/2 Ml Vial) 4 mg IVPUSH Q8H PRN PRN Reason: Nausea and Vomiting Last Admin: 06/22/24 19:52 Dose: 4 mg Documented By: TEMO-JOZEB Sodium Chloride (0.9 % Sodium Chloride Flush 3 Ml Syringe) 3 ml IVFLUSH QSHIFT REPLACED BY [facility] Last Admin: 07/01/24 07:13 Dose: Not Given Documented By: VICK Non-Admin Reason: Previously Administered Labs 07/01/24 05:17 07/01/24 05:17 Labs: Laboratory Results - last 24 hr 07/01/24 05:17 MCV 86.1 MCH 30.1 MCHC 35.0 RDW 12.3 Plt Count 384 MPV 9.4 Immature Gran % (Auto) 1.8 H Neut % (Auto) 74.9 H Lymph % (Auto) 13.5 L [place] % (Auto) 7.5 Eos % (Auto) 1.4 Baso % (Auto) 0.9 Lymph # (Auto) 2.2 [place] # (Auto) 1.2 Eos # (Auto) 0.2 Baso # (Auto) 0.2 Abs Immat Gran (auto) 0.29 H Absolute Neuts (auto) 12.2 H Absolute Nucleated RBC 0.000 Nucleated RBC % (auto) 0.0 Anion Gap 16 Estim Creat Clear Calc 101.5 Estimated GFR > 60 Fasting Glucose 116 H Calcium 9.5 Total Bilirubin 0.5 AST 20 ALT 24 Alkaline Phosphatase 112 Total Protein 6.7 Albumin 3.8 Assessment and Plan (1) Abscess of lung with pneumonia: Status: Acute (2) Hyponatremia: Status: Acute Plan d87 for 59yo M with no known PMHx but no current primary care for past 5 yr, 45 pack-year smoking history presenting with dyspnea, productive cough, and fatigue x 1 month failed outpt therapy [levofloxacin x5d + doxycycline x10d] admitted for hypoxia and sepsis due to multifocal pneumonia with multiple abscesses acute hypoxic respiratory failrue and sepsis due to multifocal pneumonia with multiple abscesses - vancomycin 06/14-06/17 [MRSA swab negative], cefepime 06/14-06/24, metronidazole 06/16-06/24, azithromycin 06/17-06/24; changed to meropenem 06/24 and plan ertapenem to complete 4 wk IV ABX per ID; end date 07/12; midline placed 06/24 - Legionella UAg negative, T-spot IGRA negative, TB PCR negative, AFB smear x3 negative, HIV negative; per ID yeast in sputum not significant unless Cryptococcus sp. - ID + Pulm consulted; unable to drain due to risk of pleural fistula; medical treatment with ABX recomemnded - wean O2 as tolerated; currently on 6L O2 hypoNa - on fluid restriction [will liberalize to 1500 mL/d] for suspicion of SIADH but appears to be in part hypovolemic given Caren <20; will give more NS x 1.5L and recheck BMP in AM erythrocytosis - likely secondary to hypoxia from COPD; therapeutic phlebotomy per Heme-Onc due to increased risk of thrombosis; epo level normal; monitor CBC periodically GERD - PPI, Maalox tobacco abuse - NRT VTE ppx - enoxaparin dispo - PT evaluation: IPR recommended In my clinical judgment, the patient requires continued inpatient hospitalization for the following reasons: IV ABX, hypoxia, hypoNa Total time managing care of this patient today: 35 minutes. Quality Stroke Does the patient have a stroke diagnosis?: No VTE Prior VTE?: No VTE Risk Level:: Medical - moderate - high VTE Device Contraindication: Treatment Not Indicated VTE Drug Contraindication: N/A - Med Ordered
--- NOTE | 2024-07-01 11:13 | MHC.CM.PN ---
Per MD rounds patient not medically cleared for dc. Facility updated. CM will continue to follow.
[2024-07-01 13:21] VITALS: O2SAT 89
--- NOTE | 2024-07-01 14:03 | MHC.CLN ---
NUTRITION DIET=REGULAR WITH 1500 ML FLUID RESTRICTION. FLUID RESTRICTION DUE TO LOW SODIUM. ENSURE BID PROVIDES 700 KCALS, 40 G PROTEIN. IF CONSUMED 100%, SUPPLEMENT PROVIDES APPROX 410 ML FREE WATER. INTAKE AT MEALS VARIABLE. RD TO MONITOR WEEKLY.
[2024-07-01 15:16] VITALS: BP 125/76; PULSE 71; RESP 18; TEMP 36.6; O2SAT 92
[2024-07-01] MEDS: Enoxaparin Sodium 40 MG/0.4 ML SYRINGE SUBCUT (15:18)
--- NOTE | 2024-07-01 18:53 | PM.PNNEP ---
Subjective Subjective Date of Service: 07/01/24 Interval history: Events noted. All recent data reviewed. Sodium unchanged Physical Exam Vital Signs: Vital Signs: Last Vital Signs Temp 97.8 F 07/01/24 15:16 Pulse 71 07/01/24 15:16 Resp 18 07/01/24 15:16 BP 125/76 07/01/24 15:16 Pulse Ox 92 07/01/24 15:16 O2 Del Method Oxymask 07/01/24 15:16 O2 Flow Rate 6 07/01/24 06:51 BMI result Body Mass Index 20.8 Const: General: no acute distress Eyes: EOM: EOMs intact bilaterally Neck: Neck: Yes supple Resp: Auscultation: diminished lung sounds Cardio: Rate: regular rate GI: Palpation (GI): Soft to palpation Neuro: General: moves all extremities Objective Data Labs 07/01/24 05:17 07/01/24 05:17 Labs: Laboratory Results - last 24 hr 07/01/24 05:17 WBC 16.3 H RBC 6.27 H Hgb 18.9 H Hct 54.0 H MCV 86.1 MCH 30.1 MCHC 35.0 RDW 12.3 Plt Count 384 MPV 9.4 Immature Gran % (Auto) 1.8 H Neut % (Auto) 74.9 H Lymph % (Auto) 13.5 L [place] % (Auto) 7.5 Eos % (Auto) 1.4 Baso % (Auto) 0.9 Lymph # (Auto) 2.2 [place] # (Auto) 1.2 Eos # (Auto) 0.2 Baso # (Auto) 0.2 Abs Immat Gran (auto) 0.29 H Absolute Neuts (auto) 12.2 H Absolute Nucleated RBC 0.000 Nucleated RBC % (auto) 0.0 Sodium 124 L Potassium 4.5 Chloride 86 L Carbon Dioxide 27 Anion Gap 16 BUN 25 H Creatinine 0.72 Estim Creat Clear Calc 101.5 Estimated GFR > 60 Fasting Glucose 116 H Calcium 9.5 Total Bilirubin 0.5 AST 20 ALT 24 Alkaline Phosphatase 112 Total Protein 6.7 Albumin 3.8 Microbiology Microbiology Results: Microbiology 06/22/24 15:30 Sputum - Expectorated Gram Stain - Final 06/22/24 15:30 Sputum - Expectorated Sputum Culture - Final Briseida albicans 06/14/24 11:04 Blood - Venous Blood Culture - Final No growth after 5 days. 06/14/24 11:04 Blood - Venous Blood Culture - Final No growth after 5 days. 06/14/24 16:08 Sputum - Expectorated Direct Acid Fast Bacilli Smear - Final 06/16/24 03:15 Sputum - Expectorated Direct Acid Fast Bacilli Smear - Final 06/16/24 10:30 Sputum - Expectorated Direct Acid Fast Bacilli Smear - Final Procedures Date of Service Date of Service: 07/01/24 Assessment & Plan Assessment and plan (1) Hyponatremia: Status: Acute Plan Hyponatremia likely multifactorial Has excess ADH now. No further IV fluids Shall give PO Urea 30 Gram bid tomorrow-- -- along with PO NaCl 1 Gram bid if Na remains low C/W rest of current management for now Progress Note: Quality Stroke Does the patient have a stroke diagnosis?: No
[2024-07-01 19:14] VITALS: BP 127/80; PULSE 72; RESP 18; TEMP 36.6; O2SAT 91
[2024-07-01] MEDS: 0.9 % Sodium Chloride Flush 3 ML SYRINGE IVFLUSH (20:05)
[2024-07-01] MEDS: 0.9 % Sodium Chloride 500 ML 75 ML IVCONT (21:51)
[2024-07-02] MEDS: Meropenem 1 GM VIAL IVPUSH ×3 (01:00→16:33)
[2024-07-02 03:09] VITALS: BP 121/62; PULSE 72; RESP 16; TEMP 36; O2SAT 93
[2024-07-02] MEDS: Omeprazole 20 MG CAPSULE.DR PO ×2 (05:52→16:32)
[2024-07-02 06:06] LABS: Anion Gap 15 (12-20); Blood Urea Nitrogen 18 mg/dL (9-16); Calcium 8.9 mg/dL (8.4-10.2); Carbon Dioxide 28 mmol/L (22-29); Chloride 90 mmol/L (96-108); Creatinine Clr Calc Pharmacy 109.1; Estimated Glomerular Filt Rate > 60; Glucose Random 97 mg/dL (60-115); Sodium 128 mmol/L (135-145)
[2024-07-02 06:51] VITALS: BP 100/71; PULSE 79; RESP 17; TEMP 36.6; O2SAT 90
[2024-07-02] MEDS: Sodium Chloride Tab 1 GM TABLET PO ×3 (09:11→20:41)
[2024-07-02] MEDS: Heparin Sodium,Porcine Flush 50 UNITS, 0.9 % Sodium Chloride Flush 5 ML IVFLUSH ×3 (09:11→20:42)
[2024-07-02] MEDS: guaiFENesin DM 200/20/10 ML 10 ML SYRUP PO ×4 (09:11→20:40)
--- NOTE | 2024-07-02 09:57 | P.PNIM_ITS ---
Subjective Subjective Date of Service: 07/02/24 Interval History: coughing sputum still short of breath with movement no fever Review of Systems Review of Systems: Yes all other systems are reviewed and are negative Physical Exam 2 Vital Signs: Vital Signs: Last Vital Signs Temp 98 F 07/02/24 06:51 Pulse 79 07/02/24 06:51 Resp 17 07/02/24 06:51 BP 100/71 07/02/24 06:51 Pulse Ox 90 L 07/02/24 06:51 O2 Del Method Oxymask 07/02/24 06:51 O2 Flow Rate 6 07/02/24 06:51 BMI result Body Mass Index 20.8 Gen: in no acute distress HEENT: sclera anicteric, moist mucus membranes Neck: supple Lungs: diminished L>R, wet inspiratory crackles L side Heart: regular rate and rhythm, no murmurs Abd: soft, non-tender, non-distended Ext: no edema, R basilic midline Skin: warm/well-perfused Neuro: alert and oriented x3, no focal findings Psych: appropriate affect Objective Data Active Medications Acetaminophen (Acetaminophen 325 Mg Tablet) 650 mg PO Q6H PRN PRN Reason: Pain, Mild 1-3,fever,headache Al Hydroxide/Mg Hydroxide (Magnesium Hydrox/Alum Hydrox 30 Ml Oral.Susp) 30 ml PO Q6H PRN PRN Reason: heartburn Last Admin: 06/22/24 04:26 Dose: 30 ml Documented By: LES Benzocaine (Throat Lozenge, Medicated Lozenge) 1 lozenge MUCOUS MEM Q2H PRN PRN Reason: Sore Throat Last Admin: 06/25/24 21:51 Dose: 1 lozenge Documented By: TON Benzonatate (Benzonatate 100 Mg Capsule) 200 mg PO TID PRN PRN Reason: Cough Calcium Carbonate (Calcium Carbonate 750 Mg Tab.Chew) 750 mg PO Q4H PRN PRN Reason: Heartburn Last Admin: 06/22/24 09:47 Dose: 750 mg Documented By: ALVINA Heparin Sodium (Porcine) 50 (units/ Sodium Chloride 5 ml) 0 units IVFLUSH TID [facility] Last Admin: 07/02/24 09:11 Dose: 50 unit Documented By: JENNA Enoxaparin Sodium (Enoxaparin Sodium 40 Mg/0.4 Ml Syringe) 40 mg SUBCUT Q24H [facility] Last Admin: 07/01/24 15:18 Dose: 40 mg Documented By: VICK Guaifenesin (Guaifenesin 200 Mg/10 Ml 10 Ml Liquid) 10 ml PO Q6H PRN PRN Reason: Cough Last Admin: 06/29/24 02:31 Dose: 10 ml Documented By: DEEPAK Guaifenesin/Dextromethorphan (Guaifenesin Dm 200/20/10 Ml 10 Ml Syrup) 10 ml PO QID [facility] Last Admin: 07/02/24 09:11 Dose: 10 ml Documented By: JENNA Magnesium Hydroxide (Milk Of Magnesia 30 Ml Oral.Susp) 30 ml PO DAILY PRN PRN Reason: Constipation Melatonin (Melatonin 3 Mg Tablet) 6 mg PO BEDTIME PRN PRN Reason: Insomnia Meropenem (Meropenem 1 Gm Vial) 1 gm IVPUSH Q8H [facility] Last Admin: 07/02/24 09:12 Dose: 1 gm Documented By: JENNA Nicotine Polacrilex (Nicotine Polacrilex Lozenge 2 Mg Lozenge) 2 mg BUCCAL Q2H PRN PRN Reason: Nicotine Cravings Omeprazole (Omeprazole 20 Mg Capsule.Dr) 20 mg PO BID@0630,1630 [facility] Last Admin: 07/02/24 05:52 Dose: 20 mg Documented By: VALENTINA Ondansetron HCl (Ondansetron Hcl 4 Mg/2 Ml Vial) 4 mg IVPUSH Q8H PRN PRN Reason: Nausea and Vomiting Last Admin: 06/22/24 19:52 Dose: 4 mg Documented By: EBONI Sodium Chloride (0.9 % Sodium Chloride Flush 3 Ml Syringe) 3 ml IVFLUSH QSHIFT [facility] Last Admin: 07/02/24 09:28 Dose: Not Given Documented By: JENNA Non-Admin Reason: Previously Administered Sodium Chloride (Sodium Chloride Tab 1 Gm Tablet) 1 gm PO TID [facility] Last Admin: 07/02/24 09:11 Dose: 1 gm Documented By: JENNA Urea (Urea 15 Gm Powder) 30 gm PO BID [facility] Stop: 07/02/24 21:01 Labs 07/01/24 05:17 03/27/25 05:22 Labs: Laboratory Results - last 24 hr 07/02/24 05:22 Hold Purple Top SEE NOTE Anion Gap 15 Estim Creat Clear Calc 109.1 Estimated GFR > 60 Random Glucose 97 Calcium 8.9 D Assessment and Plan (1) Abscess of lung with pneumonia: Status: Acute (2) Hyponatremia: Status: Acute Plan d19 for 59yo M with no known PMHx but no current primary care for past 5 yr, 45 pack-year smoking history presenting with dyspnea, productive cough, and fatigue x 1 month failed outpt therapy [levofloxacin x5d + doxycycline x10d] admitted for hypoxia and sepsis due to multifocal pneumonia with multiple abscesses acute hypoxic respiratory failrue and sepsis due to multifocal pneumonia with multiple abscesses - vancomycin 06/14-06/17 [MRSA swab negative], cefepime 06/14-06/24, metronidazole 06/16-06/24, azithromycin 06/17-06/24; changed to meropenem 06/24 and plan ertapenem to complete 4 wk IV ABX per ID; end date 07/12; midline placed 06/24 - Legionella UAg negative, T-spot IGRA negative, TB PCR negative, AFB smear x3 negative, HIV negative; per ID yeast in sputum not significant unless Cryptococcus sp. - ID + Pulm consulted; unable to drain due to risk of pleural fistula; medical treatment with ABX recomemdned - wean O2 as tolerated; currently on 6L O2 hypoNa - on 1500 mL/d fluid restriction [will liberalize to 1500 mL/d] for suspicion of SIADH but also had prerenal component with Caren <20 - Na improved today; urea + NaCl tabs per Nephrology; recheck BMP IN AM erythrocytosis - likely secondary to hypoxia from COPD; therapeutic phlebotomy per Heme-Onc due to increased risk of thrombosis; epo level normal; monitor CBC periodically GERD - PPI, Maalox tobacco abuse - NRT VTE ppx - enoxaparin dispo - PT evaluation: IPR recommended In my clinical judgment, the patient requires continued inpatient hospitalization for the following reasons: IV ABX, hypoxia, hypoNa Total time managing care of this patient today: 35 minutes. Quality Stroke Does the patient have a stroke diagnosis?: No VTE Prior VTE?: No VTE Risk Level:: Medical - moderate - high VTE Device Contraindication: Treatment Not Indicated VTE Drug Contraindication: N/A - Med Ordered
[2024-07-02] MEDS: Urea 15 GM POWDER 30 GM PO (13:32)
[2024-07-02 15:31] VITALS: BP 108/62; PULSE 87; RESP 18; TEMP 37; O2SAT 90
[2024-07-02] MEDS: Enoxaparin Sodium 40 MG/0.4 ML SYRINGE SUBCUT (16:34)
[2024-07-02] MEDS: 0.9 % Sodium Chloride Flush 3 ML SYRINGE IVFLUSH (16:41)
--- NOTE | 2024-07-02 18:25 | P.PNNP_ITS ---
Subjective Subjective Date of Service: 07/02/24 Interval history: coughing sputum; still short of breath with movement; no fever Physical Exam 2 Vital Signs: Vital Signs: Last Vital Signs Temp 98.6 F 07/02/24 15:31 Pulse 87 07/02/24 15:31 Resp 18 07/02/24 15:31 BP 108/62 07/02/24 15:31 Pulse Ox 90 L 07/02/24 15:31 O2 Del Method Oxymask 07/02/24 15:31 O2 Flow Rate 6 07/02/24 06:51 BMI result Body Mass Index 20.8 Const: General: no acute distress Eyes: EOM: EOMs intact bilaterally Neck: Neck: Yes supple Resp: Auscultation: diminished lung sounds Cardio: Rate: regular rate GI: Palpation (GI): Soft to palpation Neuro: General: moves all extremities Objective Data Labs 07/01/24 05:17 07/02/24 05:22 Labs: Laboratory Results - last 24 hr 07/02/24 05:22 Hold Purple Top SEE NOTE Sodium 128 L Potassium 5.0 Chloride 90 L Carbon Dioxide 28 Anion Gap 15 BUN 18 H Creatinine 0.67 Estim Creat Clear Calc 109.1 Estimated GFR > 60 Random Glucose 97 Calcium 8.9 D Microbiology Microbiology Results: Microbiology 06/22/24 15:30 Sputum - Expectorated Gram Stain - Final 06/22/24 15:30 Sputum - Expectorated Sputum Culture - Final Briseida albicans 06/14/24 11:04 Blood - Venous Blood Culture - Final No growth after 5 days. 06/14/24 11:04 Blood - Venous Blood Culture - Final No growth after 5 days. 06/14/24 16:08 Sputum - Expectorated Direct Acid Fast Bacilli Smear - Final 06/16/24 03:15 Sputum - Expectorated Direct Acid Fast Bacilli Smear - Final 06/16/24 10:30 Sputum - Expectorated Direct Acid Fast Bacilli Smear - Final Procedures Date of Service Date of Service: 07/02/24 Assessment & Plan Assessment and plan (1) Hyponatremia: Status: Acute Assessment and Plan: Hyponatremia likely multifactorial Has excess ADH now. No further IV fluids Started PO Urea 30 Gram bid -- -- along with PO NaCl 1 Gram bid; Na better C/W rest of current management for now Progress Note: Quality Stroke Does the patient have a stroke diagnosis?: No
[2024-07-02 19:54] VITALS: BP 112/67; PULSE 86; RESP 18; TEMP 36.1; O2SAT 93
[2024-07-03] VITALS (7 sets, daily range): BP systolic 98–142; BP diastolic 62–87; PULSE 70–105; RESP 16–28; TEMP 36–37.4; O2SAT 87–93
[2024-07-03] MEDS: Meropenem 1 GM VIAL IVPUSH ×4 (00:29→23:54)
[2024-07-03] MEDS: 0.9 % Sodium Chloride Flush 3 ML SYRINGE IVFLUSH ×4 (00:35→21:12)
[2024-07-03] MEDS: Urea 15 GM POWDER 30 GM PO (02:05)
[2024-07-03] MEDS: Omeprazole 20 MG CAPSULE.DR PO ×2 (06:11→16:38)
[2024-07-03 07:06] LABS: Anion Gap 15 (12-20); Blood Urea Nitrogen 55 mg/dL (9-16); Calcium 9.5 mg/dL (8.4-10.2); Carbon Dioxide 27 mmol/L (22-29); Chloride 92 mmol/L (96-108); Creatinine Clr Calc Pharmacy 105.9; Estimated Glomerular Filt Rate > 60; Glucose Random 114 mg/dL (60-115); Potassium 4.6 mmol/L (3.3-5.1); Sodium 129 mmol/L (135-145)
[2024-07-03] MEDS: guaiFENesin DM 200/20/10 ML 10 ML SYRUP PO ×4 (07:40→21:11)
[2024-07-03] MEDS: Heparin Sodium,Porcine Flush 50 UNITS, 0.9 % Sodium Chloride Flush 5 ML IVFLUSH ×3 (07:41→21:11)
[2024-07-03] MEDS: Sodium Chloride Tab 1 GM TABLET PO ×3 (07:41→21:11)
--- NOTE | 2024-07-03 11:15 | P.PNIM_ITS ---
Subjective Subjective Date of Service: 07/03/24 Interval History: coughing up copious watery sputum; more short of breath this AM and hypoxic; O2 requirement up to 7L Review of Systems Review of Systems: Yes all other systems are reviewed and are negative Physical Exam 2 Vital Signs: Vital Signs: Last Vital Signs Temp 97.8 F 07/03/24 09:22 Pulse 84 07/03/24 09:22 Resp 20 07/03/24 09:22 BP 102/68 07/03/24 09:22 Pulse Ox 89 L 07/03/24 09:22 O2 Del Method Oxymask 07/03/24 09:22 O2 Flow Rate 7 07/03/24 09:22 BMI result Body Mass Index 20.8 Gen: in no acute distress HEENT: sclera anicteric, moist mucus membranes Neck: supple Lungs: diminished L>R, wet inspiratory crackles L side Heart: regular rate and rhythm, no murmurs Abd: soft, non-tender, non-distended Ext: no edema, R basilic midline Skin: warm/well-perfused Neuro: alert and oriented x3, no focal findings Psych: appropriate affect Objective Data Active Medications Acetaminophen (Acetaminophen 325 Mg Tablet) 650 mg PO Q6H PRN PRN Reason: Pain, Mild 1-3,fever,headache Al Hydroxide/Mg Hydroxide (Magnesium Hydrox/Alum Hydrox 30 Ml Oral.Susp) 30 ml PO Q6H PRN PRN Reason: heartburn Last Admin: 06/22/24 04:26 Dose: 30 ml Documented By: LES Albuterol/Ipratropium (Albuterol/Iprat 2.5/0.5mg 3 Ml Ampul.Neb) 3 ml INHALE RQ4H WHILE AWAKE PRN PRN Reason: shortness of breath/wheeze Benzocaine (Throat Lozenge, Medicated Lozenge) 1 lozenge MUCOUS MEM Q2H PRN PRN Reason: Sore Throat Last Admin: 06/25/24 21:51 Dose: 1 lozenge Documented By: TON Benzonatate (Benzonatate 100 Mg Capsule) 200 mg PO TID PRN PRN Reason: Cough Calcium Carbonate (Calcium Carbonate 750 Mg Tab.Chew) 750 mg PO Q4H PRN PRN Reason: Heartburn Last Admin: 06/22/24 09:47 Dose: 750 mg Documented By: ALVINA Heparin Sodium (Porcine) 50 (units/ Sodium Chloride 5 ml) 0 units IVFLUSH TID [facility] Last Admin: 07/03/24 07:41 Dose: 50 unit Documented By: JENNA Enoxaparin Sodium (Enoxaparin Sodium 40 Mg/0.4 Ml Syringe) 40 mg SUBCUT Q24H [facility] Last Admin: 07/02/24 16:34 Dose: 40 mg Documented By: JENNA Guaifenesin (Guaifenesin 200 Mg/10 Ml 10 Ml Liquid) 10 ml PO Q6H PRN PRN Reason: Cough Last Admin: 06/29/24 02:31 Dose: 10 ml Documented By: DEEPAK Guaifenesin/Dextromethorphan (Guaifenesin Dm 200/20/10 Ml 10 Ml Syrup) 10 ml PO QID [facility] Last Admin: 07/03/24 07:40 Dose: 10 ml Documented By: JENNA Magnesium Hydroxide (Milk Of Magnesia 30 Ml Oral.Susp) 30 ml PO DAILY PRN PRN Reason: Constipation Melatonin (Melatonin 3 Mg Tablet) 6 mg PO BEDTIME PRN PRN Reason: Insomnia Meropenem (Meropenem 1 Gm Vial) 1 gm IVPUSH Q8H [facility] Last Admin: 07/03/24 07:41 Dose: 1 gm Documented By: JENNA Nicotine Polacrilex (Nicotine Polacrilex Lozenge 2 Mg Lozenge) 2 mg BUCCAL Q2H PRN PRN Reason: Nicotine Cravings Omeprazole (Omeprazole 20 Mg Capsule.) 20 mg PO BID@0630,1630 [facility] Last Admin: 07/03/24 06:11 Dose: 20 mg Documented By: VALENTINA Ondansetron HCl (Ondansetron Hcl 4 Mg/2 Ml Vial) 4 mg IVPUSH Q8H PRN PRN Reason: Nausea and Vomiting Last Admin: 06/22/24 19:52 Dose: 4 mg Documented By: EBONI Sodium Chloride (0.9 % Sodium Chloride Flush 3 Ml Syringe) 3 ml IVFLUSH QSHIFT [facility] Last Admin: 07/03/24 07:49 Dose: 3 ml Documented By: JENNA Sodium Chloride (Sodium Chloride Tab 1 Gm Tablet) 1 gm PO TID [facility] Last Admin: 07/03/24 07:41 Dose: 1 gm Documented By: JENNA Labs 07/01/24 05:17 07/03/24 06:32 Labs: Laboratory Results - last 24 hr 07/03/24 06:32 Hold Purple Top SEE NOTE Anion Gap 15 Estim Creat Clear Calc 105.9 Estimated GFR > 60 Random Glucose 114 Calcium 9.5 D Assessment and Plan (1) Abscess of lung with pneumonia: Status: Acute (2) Hyponatremia: Status: Acute Plan d20 for 59yo M with no known PMHx but no current primary care for past 5 yr, 45 pack-year smoking history presenting with dyspnea, productive cough, and fatigue x 1 month failed outpt therapy [levofloxacin x5d + doxycycline x10d] admitted for hypoxia and sepsis due to multifocal pneumonia with multiple abscesses acute hypoxic respiratory failrue and sepsis due to multifocal pneumonia with multiple abscesses - vancomycin 06/14-06/17 [MRSA swab negative], cefepime 06/14-06/24, metronidazole 06/16-06/24, azithromycin 06/17-06/24; changed to meropenem 06/24 and plan ertapenem to complete 4 wk IV ABX per ID; end date 07/12; midline placed 06/24 - Legionella UAg negative, T-spot IGRA negative, TB PCR negative, AFB smear x3 negative, HIV negative; per ID yeast in sputum not significant unless Cryptococcus sp. - ID + Pulm consulted; unable to drain due to risk of pleural fistula; medical treatment with ABX recommedned - wean O2 as tolerated; currently on 7L O2 - will have Pulm f/u hypoNa - on 1500 mL/d fluid restriction for suspicion of SIADH but also had prerenal component with Caren <20 - Na slightly improved today; on NaCl tabs per Nephrology; recheck BMP in AM erythrocytosis - likely secondary to hypoxia from COPD; therapeutic phlebotomy per Heme-Onc due to increased risk of thrombosis; epo level normal; monitor CBC periodically GERD - PPI, Maalox tobacco abuse - NRT VTE ppx - enoxaparin dispo - PT evaluation: IPR recommended In my clinical judgment, the patient requires continued inpatient hospitalization for the following reasons: IV ABX, hypoxia, hypoNa Total time managing care of this patient today: 45 minutes. Quality Stroke Does the patient have a stroke diagnosis?: No VTE Prior VTE?: No VTE Risk Level:: Medical - moderate - high VTE Device Contraindication: Treatment Not Indicated VTE Drug Contraindication: N/A - Med Ordered
--- NOTE | 2024-07-03 12:02 | MHC.CM.PN ---
Patient not medically cleared for dc. CM will continue to follow.
--- NOTE | 2024-07-03 12:33 | P.PNPL_ITS ---
Subjective Subjective Date of Service: 07/03/24 Interval history: The patient was seen on exam. Has been on meropenem for prolonged period of time. Still having significant bronchorrhea. Denies any hemoptysis. His sputum secretions are large in amount expectorating frequent and colored. Will repeat her chest x-ray will add clindamycin for now. Try again order sputum culture. Likely this process could be a concomitant process as adenocarcinoma can also result in significant bronchorrhea. In addition to that anaerobic infections are in differential in view of the fact that his sputum cultures have been negative. Typically a bronchoscopy with brushings can provide with anaerobic bacterial cultures. But, for now will try him on clindamycin for the weekend and if the patient is no better or if any other concerning findings bronchoscopy should be provided next week. Objective Data Labs 07/01/24 05:17 07/03/24 06:32 Labs: Laboratory Results - last 24 hr 07/03/24 06:32 Hold Purple Top SEE NOTE Sodium 129 L Potassium 4.6 Chloride 92 L Carbon Dioxide 27 Anion Gap 15 BUN 55 H Creatinine 0.69 Estim Creat Clear Calc 105.9 Estimated GFR > 60 Random Glucose 114 Calcium 9.5 D Microbiology Microbiology Results: Microbiology 06/22/24 15:30 Sputum - Expectorated Gram Stain - Final 06/22/24 15:30 Sputum - Expectorated Sputum Culture - Final Briseida albicans 06/14/24 11:04 Blood - Venous Blood Culture - Final No growth after 5 days. 06/14/24 11:04 Blood - Venous Blood Culture - Final No growth after 5 days. 06/14/24 16:08 Sputum - Expectorated Direct Acid Fast Bacilli Smear - Final 06/16/24 03:15 Sputum - Expectorated Direct Acid Fast Bacilli Smear - Final 06/16/24 10:30 Sputum - Expectorated Direct Acid Fast Bacilli Smear - Final Review of Systems Constitutional: Denies daytime sleepiness, Denies excessive sweating, Denies fatigue, Denies fever(s), Denies lethargy, Denies malaise, Denies night sweats, Denies snoring and Denies weight loss Eyes: Denies blurry vision and Denies itchy eyes Denies nasal congestion, Denies post nasal drip, Denies sinus pain, Denies sinus pressure and Denies other ( Thrush) Cardiovascular: Denies chest pain, Denies pedal edema, Reports dyspnea, Reports dyspnea on exertion, Denies orthopnea and Denies paroxysmal nocturnal dyspnea Respiratory: Denies cough, Denies hemoptysis, Denies excessive phlegm production, Reports dyspnea, Reports dyspnea on exertion, Denies snoring and Denies wheezing Gastrointestinal: Denies abdominal pain and Denies heartburn Musculoskeletal: Denies myalgias, Denies arthralgias and Denies joint swelling Skin/Breast: Denies rash Denies memory loss and Denies seizure-like activity Psychiatric: Denies abnormal sleep pattern, Denies anxiety and Denies memory loss Endocrine: Denies excessive sweating, Denies fatigue and Denies heat intolerance Hematologic/Lymphatic: Denies easy bruising Allergic/Immunologic: Denies itchy eyes, Denies seasonal rhinorrhea and Denies wheezing Physical Exam 2 Vital Signs: Vital Signs: Last Vital Signs Temp 98.2 F 07/03/24 11:21 Pulse 86 07/03/24 11:21 Resp 18 07/03/24 11:21 BP 103/78 07/03/24 11:21 Pulse Ox 92 07/03/24 11:21 O2 Del Method Oxymask 07/03/24 11:21 O2 Flow Rate 5 07/03/24 11:21 BMI result Body Mass Index 20.8 Const: General: no acute distress and alert Nutritional Appearance: not obese Orientation/consciousness: Other orientation findings ( oriented) HEENT: Head: Yes atraumatic Eyes: General: appearance normal, both eyes and all related structures S clerae: sclerae normal EOM: EOMs intact bilaterally Neck: Neck: Yes supple Lymphatic: no lymphadenopathy noted Resp: Effort & Inspection: normal respiratory effort and no use of accessory muscles Auscultation: clear to auscultation bilaterally Cardio: Rate: regular rate Rhythm: regular rhythm Heart sounds: no gallops, no murmurs and no rubs Skin: General skin exam: other ( warm) Extrem: General: No clubbing, No cyanosis and No edema Procedures Date of Service Date of Service: 07/03/24 Assessment and Plan Assessment and plan (1) Pneumonia: Status: Acute (2) Acute hypoxic respiratory failure: Status: Acute (3) Abscess of lung with pneumonia: Status: Acute Plan Add Clindamycin CXR Bronchosocpy next week if no better Time Spent With Patient Time: Total time managing care of this patient today ____ minutes. Progress Note: Quality Stroke Does the patient have a stroke diagnosis?: No
[2024-07-03] MEDS: Clindamycin Phosphate/D5W 600 MG/50 ML PIGGYBACK 100 MG IV ×2 (13:02→21:10)
[2024-07-03] MEDS: Enoxaparin Sodium 40 MG/0.4 ML SYRINGE SUBCUT (16:39)
[2024-07-03] MEDS: Benzonatate 100 MG CAPSULE 200 MG PO (19:37)
--- NOTE | 2024-07-03 21:45 | P.PNNP_ITS ---
Subjective Subjective Date of Service: 07/03/24 Interval history: Events noted. All recent data reviewed Physical Exam 2 Vital Signs: Vital Signs: Last Vital Signs Temp 98.3 F 07/03/24 20:00 Pulse 100 07/03/24 20:00 Resp 20 07/03/24 20:00 BP 114/66 07/03/24 20:00 Pulse Ox 90 L 07/03/24 20:00 O2 Del Method Oxymask 07/03/24 20:00 O2 Flow Rate 7 07/03/24 20:00 BMI result Body Mass Index 20.8 Const: General: no acute distress Orientation/consciousness: patient oriented x3 Eyes: EOM: EOMs intact bilaterally Resp: Auscultation: diminished lung sounds Cardio: Rate: regular rate GI: Palpation (GI): Soft to palpation Neuro: General: patient oriented x3 Objective Data Labs 07/01/24 05:17 07/03/24 06:32 Labs: Laboratory Results - last 24 hr 07/03/24 06:32 Hold Purple Top SEE NOTE Sodium 129 L Potassium 4.6 Chloride 92 L Carbon Dioxide 27 Anion Gap 15 BUN 55 H Creatinine 0.69 Estim Creat Clear Calc 105.9 Estimated GFR > 60 Random Glucose 114 Calcium 9.5 D Microbiology Microbiology Results: Microbiology 06/22/24 15:30 Sputum - Expectorated Gram Stain - Final 06/22/24 15:30 Sputum - Expectorated Sputum Culture - Final Briseida albicans 06/14/24 11:04 Blood - Venous Blood Culture - Final No growth after 5 days. 06/14/24 11:04 Blood - Venous Blood Culture - Final No growth after 5 days. 06/14/24 16:08 Sputum - Expectorated Direct Acid Fast Bacilli Smear - Final 06/16/24 03:15 Sputum - Expectorated Direct Acid Fast Bacilli Smear - Final 06/16/24 10:30 Sputum - Expectorated Direct Acid Fast Bacilli Smear - Final Procedures Date of Service Date of Service: 07/03/24 Assessment & Plan Assessment and plan (1) Hyponatremia: Status: Acute Plan Hyponatremia likely multifactorial Has excess ADH now. No further IV fluids Given PO Urea 30 Gram bid -- -- along with PO NaCl 1 Gram bid; Na better C/W rest of current management for now Progress Note: Quality Stroke Does the patient have a stroke diagnosis?: No
[2024-07-04] MEDS: guaiFENesin 200 MG/10 ML 10 ML LIQUID PO ×2 (01:04→06:39)
[2024-07-04] MEDS: diphenhydrAMINE HCL 25 MG CAPSULE PO ×2 (02:23→20:06)
[2024-07-04 03:31] VITALS: BP 105/65; PULSE 74; RESP 17; TEMP 36.4; O2SAT 91
--- NOTE | 2024-07-04 04:14 | PC.NURSE ---
Patient developed rash and hives across the entire abdomen, forehead, and scalp. Patient claimed that it began some time in the afternoon and slowly became worse. It was noted that new antibiotic was started during the afternoon. A covering physician was notified of the finding - 25mg Benadryl was given, holding 0500 Clindamycin. Per his request, the patient was given a bag of ice to place on his abdomen to relieve some itchiness - will continue to monitor for further allergic reaction.
[2024-07-04] MEDS: Omeprazole 20 MG CAPSULE.DR PO ×2 (06:39→17:04)
[2024-07-04 07:23] LABS: Anion Gap 15 (12-20); Blood Urea Nitrogen 32 mg/dL (9-16); Calcium 9.7 mg/dL (8.4-10.2); Carbon Dioxide 30 mmol/L (22-29); Chloride 94 mmol/L (96-108); Creatinine Clr Calc Pharmacy 110.7; Estimated Glomerular Filt Rate > 60; Glucose Random 88 mg/dL (60-115); Sodium 135 mmol/L (135-145)
[2024-07-04 07:37] VITALS: BP 108/75; PULSE 92; RESP 18; TEMP 37.2; O2SAT 90
[2024-07-04] MEDS: guaiFENesin DM 200/20/10 ML 10 ML SYRUP PO ×4 (08:18→20:06)
[2024-07-04] MEDS: 0.9 % Sodium Chloride Flush 3 ML SYRINGE IVFLUSH ×3 (08:18→23:01)
[2024-07-04] MEDS: Benzonatate 100 MG CAPSULE 200 MG PO ×3 (08:18→23:01)
[2024-07-04] MEDS: Meropenem 1 GM VIAL IVPUSH ×3 (08:18→23:01)
[2024-07-04] MEDS: Heparin Sodium,Porcine Flush 50 UNITS, 0.9 % Sodium Chloride Flush 5 ML IVFLUSH ×3 (08:19→20:06)
--- NOTE | 2024-07-04 10:58 | HO.PM.IMPN ---
Subjective Subjective Date of Service: 07/04/24 Interval History: copious watery sputum breathing a little better c/o itchy rash on abd Review of Systems Review of Systems: Yes all other systems are reviewed and are negative Physical Exam Vital Signs: Vital Signs: Last Vital Signs Temp 98.9 F 07/04/24 07:37 Pulse 92 07/04/24 07:37 Resp 18 07/04/24 07:37 BP 108/75 07/04/24 07:37 Pulse Ox 90 L 07/04/24 07:37 O2 Del Method Oxymask 07/04/24 07:37 O2 Flow Rate 7 07/04/24 07:37 BMI result Body Mass Index 20.8 Gen: in no acute distress HEENT: sclera anicteric, moist mucus membranes Neck: supple Lungs: diminished L>R, wet inspiratory crackles L side Heart: regular rate and rhythm, no murmurs Abd: soft, non-tender, non-distended Ext: no edema, R basilic midline Skin: warm/well-perfused, erythematous macules on abdomen Neuro: alert and oriented x3, no focal findings Psych: appropriate affect Objective Data Active Medications Acetaminophen (Acetaminophen 325 Mg Tablet) 650 mg PO Q6H PRN PRN Reason: Pain, Mild 1-3,fever,headache Al Hydroxide/Mg Hydroxide (Magnesium Hydrox/Alum Hydrox 30 Ml Oral.Susp) 30 ml PO Q6H PRN PRN Reason: heartburn Last Admin: 06/22/24 04:26 Dose: 30 ml Documented By: LES Albuterol/Ipratropium (Albuterol/Iprat 2.5/0.5mg 3 Ml Ampul.Neb) 3 ml INHALE RQ4H WHILE AWAKE PRN PRN Reason: shortness of breath/wheeze Benzocaine (Throat Lozenge, Medicated Lozenge) 1 lozenge MUCOUS MEM Q2H PRN PRN Reason: Sore Throat Last Admin: 06/25/24 21:51 Dose: 1 lozenge Documented By: TON Benzonatate (Benzonatate 100 Mg Capsule) 200 mg PO TID PRN PRN Reason: Cough Last Admin: 07/04/24 08:18 Dose: 200 mg Documented By: BLAYNE Calcium Carbonate (Calcium Carbonate 750 Mg Tab.Chew) 750 mg PO Q4H PRN PRN Reason: Heartburn Last Admin: 06/22/24 09:47 Dose: 750 mg Documented By: ALVINA Heparin Sodium (Porcine) 50 (units/ Sodium Chloride 5 ml) 0 units IVFLUSH TID [facility] Last Admin: 07/04/24 08:19 Dose: 55 unit Documented By: BLAYNE Enoxaparin Sodium (Enoxaparin Sodium 40 Mg/0.4 Ml Syringe) 40 mg SUBCUT Q24H [facility] Last Admin: 07/03/24 16:39 Dose: 40 mg Documented By: JENNA Guaifenesin (Guaifenesin 200 Mg/10 Ml 10 Ml Liquid) 10 ml PO Q6H PRN PRN Reason: Cough Last Admin: 07/04/24 06:39 Dose: 10 ml Documented By: STEPHANIE Guaifenesin/Dextromethorphan (Guaifenesin Dm 200/20/10 Ml 10 Ml Syrup) 10 ml PO QID [facility] Last Admin: 07/04/24 08:18 Dose: 10 ml Documented By: BLAYNE Clindamycin Phosphate (Cleocin) 600 mg in 50 mls @ 100 mls/hr IV Q8H [facility] Last Admin: 07/04/24 04:35 Dose: Not Given Documented By: STEPHANIE Non-Admin Reason: Physician Held Med Magnesium Hydroxide (Milk Of Magnesia 30 Ml Oral.Susp) 30 ml PO DAILY PRN PRN Reason: Constipation Melatonin (Melatonin 3 Mg Tablet) 6 mg PO BEDTIME PRN PRN Reason: Insomnia Meropenem (Meropenem 1 Gm Vial) 1 gm IVPUSH Q8H [facility] Last Admin: 07/04/24 08:18 Dose: 1 gm Documented By: BLAYNE Nicotine Polacrilex (Nicotine Polacrilex Lozenge 2 Mg Lozenge) 2 mg BUCCAL Q2H PRN PRN Reason: Nicotine Cravings Omeprazole (Omeprazole 20 Mg Capsule.) 20 mg PO BID@0630,1630 [facility] Last Admin: 07/04/24 06:39 Dose: 20 mg Documented By: STEPHANIE Ondansetron HCl (Ondansetron Hcl 4 Mg/2 Ml Vial) 4 mg IVPUSH Q8H PRN PRN Reason: Nausea and Vomiting Last Admin: 03/17/25 19:52 Dose: 4 mg Documented By: TEMO-SHARIFZEB Sodium Chloride (0.9 % Sodium Chloride Flush 3 Ml Syringe) 3 ml IVFLUSH QSHIFT [facility] Last Admin: 07/04/24 08:18 Dose: 3 ml Documented By: BLAYNE Labs 07/01/24 05:17 07/04/24 05:28 Labs: Laboratory Results - last 24 hr 07/04/24 05:28 Hold Purple Top SEE NOTE Anion Gap 15 Estim Creat Clear Calc 110.7 Estimated GFR > 60 Random Glucose 88 Calcium 9.7 Impressions Chest X-Ray 07/03/24 12:32 IMPRESSION: 1. Extensive parenchymal opacification left greater than right lungs with underlying COPD. Compared with the recent chest CT, there has been mild improvement in the right upper lung region but otherwise no change. (Given the appearance on the recent chest CT, bilateral lung abscesses are suspected). 2. No pneumothorax. 3. Probable small right effusion. No definite left effusion. Electronically signed by: Carlos Moya MD 07/03/2024 01:00 PM EDT RP Assessment and Plan (1) Abscess of lung with pneumonia: Status: Acute (2) Hyponatremia: Status: Acute Plan d21 for 59yo M with no known PMHx but no current primary care for past 5 yr, 45 pack-year smoking history presenting with dyspnea, productive cough, and fatigue x 1 month failed outpt therapy [levofloxacin x5d + doxycycline x10d] admitted for hypoxia and sepsis due to multifocal pneumonia with multiple abscesses acute hypoxic respiratory failrue and sepsis due to multifocal pneumonia with multiple abscesses - vancomycin 06/14-06/17 [MRSA swab negative], cefepime 06/14-06/24, metronidazole 06/16-06/24, azithromycin 06/17-06/24; changed to meropenem 06/24 and plan ertapenem to complete 4 wk IV ABX per ID; end date 07/12; midline placed 06/24 - Legionella UAg negative, T-spot IGRA negative, TB PCR negative, AFB smear x3 negative, HIV negative; per ID yeast in sputum not significant unless Cryptococcus sp. - ID + Pulm consulted; unable to drain due to risk of pleural fistula; medical treatment with ABX recommedned - wean O2 as tolerated; currently on 7L O2 - Pulm recommended clindamycin but pt appears to have allergy to it; will d/c hypoNa - resolved after fluid restriction, urea, and NaCl IV and tabs; release fluid restriction and d/c NaCl tabs; recheck BMP in AM erythrocytosis - likely secondary to hypoxia from COPD; therapeutic phlebotomy per Heme-Onc due to increased risk of thrombosis; epo level normal; monitor CBC periodically GERD - PPI, Maalox tobacco abuse - NRT VTE ppx - enoxaparin dispo - PT evaluation: IPR recommended In my clinical judgment, the patient requires continued inpatient hospitalization for the following reasons: IV ABX, hypoxia, hypoNa Total time managing care of this patient today: 45 minutes. Quality Stroke Does the patient have a stroke diagnosis?: No VTE Prior VTE?: No VTE Risk Level:: Medical - moderate - high VTE Device Contraindication: Treatment Not Indicated VTE Drug Contraindication: N/A - Med Ordered
[2024-07-04 15:13] VITALS: BP 102/70; PULSE 95; RESP 19; TEMP 36.6; O2SAT 91
[2024-07-04] MEDS: Enoxaparin Sodium 40 MG/0.4 ML SYRINGE SUBCUT (15:21)
[2024-07-04 19:10] VITALS: BP 119/71; PULSE 88; RESP 18; TEMP 36.8; O2SAT 92
--- NOTE | 2024-07-04 19:57 | PM.EVENT ---
Event Note Date of Service: 07/04/24 Event Note: Rash: Patient developed maculopapular rash on his abdomen yesterday afternoon. Presumed to be secondary to the clindamycin-which was discontinued. Today the rash seems to be extending to his upper chest arms and back of the neck. Palms and soles are spared. Mucosa is clear currently. Patient reports improvement in the rash with Benadryl yesterday. Will continue Benadryl p.r.n. Will pass on to the day hospitalist for further evaluation and possible transfer if needed. Time Spent With Patient Time: Total time managing care of this patient today ____ minutes.
[2024-07-05] MEDS: guaiFENesin 200 MG/10 ML 10 ML LIQUID PO (03:05)
[2024-07-05] MEDS: Throat Lozenge, Medicated LOZENGE 1 LOZENGE MUCOUS MEM (03:05)
[2024-07-05] MEDS: diphenhydrAMINE HCL 25 MG CAPSULE PO ×2 (03:06→17:45)
[2024-07-05 03:51] VITALS: BP 107/67; PULSE 89; RESP 18; TEMP 37; O2SAT 91
[2024-07-05 06:21] LABS: Anion Gap 15 (12-20); Blood Urea Nitrogen 25 mg/dL (9-16); Calcium 9.7 mg/dL (8.4-10.2); Carbon Dioxide 29 mmol/L (22-29); Chloride 91 mmol/L (96-108); Creatinine Clr Calc Pharmacy 109.1; Estimated Glomerular Filt Rate > 60; Glucose Random 103 mg/dL (60-115); Potassium 4.3 mmol/L (3.3-5.1); Sodium 131 mmol/L (135-145)
[2024-07-05] MEDS: Omeprazole 20 MG CAPSULE.DR PO ×2 (06:21→16:01)
[2024-07-05] MEDS: Meropenem 1 GM VIAL IVPUSH ×2 (07:50→16:02)
[2024-07-05] MEDS: guaiFENesin DM 200/20/10 ML 10 ML SYRUP PO ×4 (07:50→23:09)
[2024-07-05] MEDS: 0.9 % Sodium Chloride Flush 3 ML SYRINGE IVFLUSH ×3 (07:50→23:10)
[2024-07-05] MEDS: 0.9 % Sodium Chloride 1,000 ML 125 ML IVCONT (07:51)
[2024-07-05 08:00] VITALS: BP 105/68; PULSE 91; RESP 18; TEMP 36.8; O2SAT 91
[2024-07-05] MEDS: diphenhydrAMINE HCL 50 MG/ML VIAL IVPUSH (08:17)
[2024-07-05] MEDS: methylPREDNISolone Sod Succ 125 MG/2 ML VIAL 60 MG IVPUSH (08:17)
[2024-07-05 09:18] LABS: Adenovirus F 40/41 Not Detected (Not Detect.); Astrovirus Not Detected (Not Detect.); Campylobacter Not Detected (Not Detect.); Cryptosporidium Not Detected (Not Detect.); Cyclospora cayetanensis Not Detected (Not Detect.); E. coli EAEC Not Detected (Not Detect.); E. coli EPEC Not Detected (Not Detect.); E. coli ETEC Not Detected (Not Detect.); E. coli STEC Not Detected (Not Detect.); Entamoeba histolytica Not Detected (Not Detect.); Giardia lamblia Not Detected (Not Detect.); Norovirus GI/GII Not Detected (Not Detect.); Plesiomonas shigelloides Not Detected (Not Detect.); Rotavirus A Not Detected (Not Detect.); Salmonella Not Detected (Not Detect.); Sapovirus Not Detected (Not Detect.); Shigella sp./EIEC Not Detected (Not Detect.); Vibrio Not Detected (Not Detect.); Vibrio Cholerae Not Detected (Not Detect.); Yersinia enterocolitica Not Detected (Not Detect.)
[2024-07-05 09:31] LABS: CDiff Gene PCR NEGATIVE (Negative)
--- NOTE | 2024-07-05 10:13 | HO.PM.IMPN ---
Subjective Subjective Date of Service: 07/05/24 Interval History: extensive itchy rash on upper chest + upper back no fever coughing up copious watery secretions now having diarrhea Review of Systems Review of Systems: Yes all other systems are reviewed and are negative Physical Exam Vital Signs: Vital Signs: Last Vital Signs Temp 98.3 F 07/05/24 08:00 Pulse 91 07/05/24 08:00 Resp 18 07/05/24 08:00 BP 105/68 07/05/24 08:00 Pulse Ox 91 L 07/05/24 08:00 O2 Del Method Oxymask 07/05/24 08:00 O2 Flow Rate 7 07/05/24 08:00 BMI result Body Mass Index 20.8 Gen: in no acute distress HEENT: sclera anicteric, moist mucus membranes Neck: supple Lungs: diminished L>R, wet inspiratory crackles L side Heart: regular rate and rhythm, no murmurs Abd: soft, non-tender, non-distended Ext: no edema, R basilic midline Skin: warm/well-perfused, erythematous macules on upper chest and upper back Neuro: alert and oriented x3, no focal findings Psych: appropriate affect Objective Data Active Medications Acetaminophen (Acetaminophen 325 Mg Tablet) 650 mg PO Q6H PRN PRN Reason: Pain, Mild 1-3,fever,headache Al Hydroxide/Mg Hydroxide (Magnesium Hydrox/Alum Hydrox 30 Ml Oral.Susp) 30 ml PO Q6H PRN PRN Reason: heartburn Last Admin: 06/22/24 04:26 Dose: 30 ml Documented By: LES Albuterol/Ipratropium (Albuterol/Iprat 2.5/0.5mg 3 Ml Ampul.Neb) 3 ml INHALE RQ4H WHILE AWAKE PRN PRN Reason: shortness of breath/wheeze Benzocaine (Throat Lozenge, Medicated Lozenge) 1 lozenge MUCOUS MEM Q2H PRN PRN Reason: Sore Throat Last Admin: 07/05/24 03:05 Dose: 1 lozenge Documented By: STEPHANIE Benzonatate (Benzonatate 100 Mg Capsule) 200 mg PO TID PRN PRN Reason: Cough Last Admin: 07/04/24 23:01 Dose: 200 mg Documented By: STEPHANIE Calcium Carbonate (Calcium Carbonate 750 Mg Tab.Chew) 750 mg PO Q4H PRN PRN Reason: Heartburn Last Admin: 06/22/24 09:47 Dose: 750 mg Documented By: ALVINA Heparin Sodium (Porcine) 50 (units/ Sodium Chloride 5 ml) 0 units IVFLUSH TID [facility] Last Admin: 07/05/24 08:13 Dose: Not Given Documented By: BLAYNE Non-Admin Reason: cont IV fluids running Diphenhydramine HCl (Diphenhydramine Hcl 25 Mg Capsule) 25 mg PO Q6H PRN PRN Reason: Rash Last Admin: 07/05/24 03:06 Dose: 25 mg Documented By: STEPHANIE Enoxaparin Sodium (Enoxaparin Sodium 40 Mg/0.4 Ml Syringe) 40 mg SUBCUT Q24H [facility] Last Admin: 07/04/24 15:21 Dose: 40 mg Documented By: BLAYNE Guaifenesin (Guaifenesin 200 Mg/10 Ml 10 Ml Liquid) 10 ml PO Q6H PRN PRN Reason: Cough Last Admin: 07/05/24 03:05 Dose: 10 ml Documented By: STEPHANIE Guaifenesin/Dextromethorphan (Guaifenesin Dm 200/20/10 Ml 10 Ml Syrup) 10 ml PO QID [facility] Last Admin: 07/05/24 07:50 Dose: 10 ml Documented By: BLAYNE Sodium Chloride (Ns) 1,000 mls @ 125 mls/hr IVCONT .Q8H [facility] Stop: 07/05/24 15:29 Last Admin: 07/05/24 07:51 Dose: 125 mls/hr Documented By: BLAYNE Magnesium Hydroxide (Milk Of Magnesia 30 Ml Oral.Susp) 30 ml PO DAILY PRN PRN Reason: Constipation Melatonin (Melatonin 3 Mg Tablet) 6 mg PO BEDTIME PRN PRN Reason: Insomnia Meropenem (Meropenem 1 Gm Vial) 1 gm IVPUSH Q8H [facility] Last Admin: 07/05/24 07:50 Dose: 1 gm Documented By: BLAYNE Nicotine Polacrilex (Nicotine Polacrilex Lozenge 2 Mg Lozenge) 2 mg BUCCAL Q2H PRN PRN Reason: Nicotine Cravings Omeprazole (Omeprazole 20 Mg Capsule.) 20 mg PO BID@0630,1630 [facility] Last Admin: 07/05/24 06:21 Dose: 20 mg Documented By: STEPHANIE Ondansetron HCl (Ondansetron Hcl 4 Mg/2 Ml Vial) 4 mg IVPUSH Q8H PRN PRN Reason: Nausea and Vomiting Last Admin: 06/22/24 19:52 Dose: 4 mg Documented By: EBONI Sodium Chloride (0.9 % Sodium Chloride Flush 3 Ml Syringe) 3 ml IVFLUSH QSHIFT [facility] Last Admin: 07/05/24 07:50 Dose: 3 ml Documented By: BLAYNE Labs 07/01/24 05:17 07/05/24 05:39 Labs: Laboratory Results - last 24 hr 07/05/24 07/05/24 07/05/24 05:39 07:22 09:19 Hold Purple Top SEE NOTE SEE NOTE Anion Gap 15 Estim Creat Clear Calc 109.1 Estimated GFR > 60 Random Glucose 103 Calcium 9.7 Stl C. cayetanensis PCR Not Detected Stool Rotavirus A PCR Not Detected Stl Adenov F 40/41 PCR Not Detected Stool Astrovirus (PCR) Not Detected Stool Campylobacter PCR Not Detected Stool Cryptosporidium PCR Not Detected Stl Sh Tox Pr E STEC PCR Not Detected Stool E coli O157 PCR Not applicable Stl Enterotoxigenic E PCR Not Detected Stool EPEC (PCR) Not Detected Stool EAEC (PCR) Not Detected Stl E. histolytica PCR Not Detected Stool Giardia Lamblia PCR Not Detected Stl P. shigelloides PCR Not Detected Stool Salmonella PCR Not Detected Stool Sapovirus (PCR) Not Detected Stl Shigella/EIEC PCR Not Detected St Y.enterocolitica PCR Not Detected Stool Vibrio (PCR) Not Detected Stl Vibrio cholerae PCR Not Detected Stl Norovirus GI/GII PCR Not Detected C. difficile Tox B Gene NEGATIVE Microbiology Microbiology Results: Microbiology 07/04/24 08:23 Gram Stain - Final Sputum - Expectorated Sputum Culture - Preliminary No growth to date. Assessment and Plan (1) Abscess of lung with pneumonia: Status: Acute (2) Hyponatremia: Status: Acute Plan d22 for 59yo M with no known PMHx but no current primary care for past 5 yr, 45 pack-year smoking history presenting with dyspnea, productive cough, and fatigue x 1 month failed outpt therapy [levofloxacin x5d + doxycycline x10d] admitted for hypoxia and sepsis due to multifocal pneumonia with multiple abscesses acute hypoxic respiratory failrue and sepsis due to multifocal pneumonia with multiple abscesses - vancomycin 06/14-06/17 [MRSA swab negative], cefepime 06/14-06/24, metronidazole 06/16-06/24, azithromycin 06/17-06/24 - changed to meropenem 06/24 and plan ertapenem to complete 4 wk IV ABX per ID; end date 07/12; midline placed 06/24 - Legionella UAg negative, T-spot IGRA negative, TB PCR negative, AFB smear x3 negative, HIV negative; per ID yeast in sputum not significant unless Cryptococcus sp. - ID + Pulm consulted; unable to drain due to risk of pleural fistula; medical treatment with ABX recommedned - wean O2 as tolerated; currently on 7L O2 - Pulm recommended clindamycin but pt appears to have allergy to it so stopped drug rash - will give IV diphenhydramine + IV methylprednisolone; list clindamycin as allergy hypoNa - resolved after fluid restriction, urea, and NaCl IV and tabs; released fluid restriction and d/c'ed NaCl tabs; Na slightly down today; will give 1L NS as pt has been having diarrhea diarrhea - Cdiff + GI panel negative; will give prn loperamide erythrocytosis - likely secondary to hypoxia from COPD; therapeutic phlebotomy per Heme-Onc due to increased risk of thrombosis; epo level normal; monitor CBC periodically GERD - PPI, Maalox tobacco abuse - NRT VTE ppx - enoxaparin dispo - PT evaluation: IPR recommended In my clinical judgment, the patient requires continued inpatient hospitalization for the following reasons: IV ABX, hypoxia, hypoNa Total time managing care of this patient today: 45 minutes. Quality Stroke Does the patient have a stroke diagnosis?: No VTE Prior VTE?: No VTE Risk Level:: Medical - moderate - high VTE Device Contraindication: Treatment Not Indicated VTE Drug Contraindication: N/A - Med Ordered
[2024-07-05 10:15] LABS: Anion Gap 13 (12-20); Blood Urea Nitrogen 25 mg/dL (9-16); Calcium 9.4 mg/dL (8.4-10.2); Carbon Dioxide 29 mmol/L (22-29); Chloride 94 mmol/L (96-108); Creatinine Clr Calc Pharmacy 105.9; Estimated Glomerular Filt Rate > 60; Glucose Random 109 mg/dL (60-115); Potassium 4.5 mmol/L (3.3-5.1); Sodium 131 mmol/L (135-145)
[2024-07-05] MEDS: Benzonatate 100 MG CAPSULE 200 MG PO (13:21)
[2024-07-05 15:17] VITALS: BP 120/68; PULSE 72; RESP 19; TEMP 36.6; O2SAT 94
[2024-07-05] MEDS: Enoxaparin Sodium 40 MG/0.4 ML SYRINGE SUBCUT (16:01)
[2024-07-05] MEDS: Heparin Sodium,Porcine Flush 50 UNITS, 0.9 % Sodium Chloride Flush 5 ML IVFLUSH ×2 (16:01→23:09)
[2024-07-05] MEDS: methylPREDNISolone Sod Succ 40 MG/ML VIAL IVPUSH (17:45)
[2024-07-05 19:50] VITALS: BP 115/68; PULSE 83; RESP 18; TEMP 36.2; O2SAT 91
[2024-07-06] MEDS: guaiFENesin 200 MG/10 ML 10 ML LIQUID PO (02:20)
[2024-07-06 04:00] VITALS: BP 127/79; PULSE 83; RESP 18; TEMP 36.2; O2SAT 88
[2024-07-06] MEDS: methylPREDNISolone Sod Succ 40 MG/ML VIAL IVPUSH (04:00)
[2024-07-06] MEDS: Omeprazole 20 MG CAPSULE.DR PO ×2 (06:12→15:59)
[2024-07-06 07:43] VITALS: BP 121/76; PULSE 68; RESP 18; TEMP 36.2; O2SAT 88
[2024-07-06 07:50] LABS: Hematocrit 50.7 % (42.0-52.0); Hemoglobin 17.2 g/dl (14.0-18.0); Mean Corpuscular HGB Conc 33.9 g/dl (31.0-36.0); Mean Corpuscular Hemoglobin 30.4 pg (27.0-33.0); Mean Corpuscular Volume 89.7 fL (80.0-98.0); Mean Platelet Volume 9.4 fL (9.4-12.4); Platelet Count 344 X10*3/uL (160-400); Red Blood Count 5.65 X10*6/uL (4.60-5.80); Red Cell Distribution Width 12.8 % (11.0-16.0); White Blood Count 17.8 X10*3/uL (4.8-10.8)
[2024-07-06] MEDS: guaiFENesin DM 200/20/10 ML 10 ML SYRUP PO ×4 (08:13→21:07)
[2024-07-06] MEDS: Heparin Sodium,Porcine Flush 50 UNITS, 0.9 % Sodium Chloride Flush 5 ML IVFLUSH ×3 (08:14→21:07)
[2024-07-06] MEDS: 0.9 % Sodium Chloride Flush 3 ML SYRINGE IVFLUSH ×3 (08:14→21:12)
[2024-07-06] MEDS: levoFLOXacin/D5W 750 MG/150 ML PIGGYBACK 100 MG IV (08:15)
--- NOTE | 2024-07-06 13:15 | MHC.CM.PN ---
Patient not medically cleared for dc. DP remains [facility], pending auth, when medically cleared. Facility updated. CM will continue to follow.
[2024-07-06 15:09] VITALS: PULSE 110; O2SAT 86
[2024-07-06] MEDS: Enoxaparin Sodium 40 MG/0.4 ML SYRINGE SUBCUT (15:10)
[2024-07-06] MEDS: Throat Lozenge, Medicated LOZENGE 1 LOZENGE MUCOUS MEM (15:16)
[2024-07-06] MEDS: Benzonatate 100 MG CAPSULE 200 MG PO (15:16)
[2024-07-06] MEDS: diphenhydrAMINE HCL 25 MG CAPSULE PO (15:21)
--- NOTE | 2024-07-06 15:23 | P.PNIM_ITS ---
Subjective Subjective Date of Service: 07/06/24 Interval History: Continues to have copious amounts of liquids sputum production. Rash somewhat worse per patient Review of Systems Denies chest pain Admits shortness of breath with productive cough that is unchanged Denies nausea vomiting diarrhea Denies fever chills Physical Exam 2 Vital Signs: Vital Signs: Last Vital Signs Temp 97.2 F 07/06/24 07:43 Pulse 110 H 07/06/24 15:09 Resp 18 07/06/24 07:43 BP 121/76 07/06/24 07:43 Pulse Ox 86 L 07/06/24 15:09 O2 Del Method Oxymask 07/06/24 07:43 O2 Flow Rate 7 07/06/24 07:43 BMI result Body Mass Index 20.8 Const: Other: Awake alert no acute distress Resp: Other: Diminished left base greater than right base with diffuse crackles left base. Coarse rhonchi clear with cough Cardio: Other: No S4; positive S1-S2; no S3 murmurs rubs or gallops GI: Other: Soft nontender nondistended normoactive bowel sounds Extrem: Other: No edema bilaterally Objective Data Active Medications Acetaminophen (Acetaminophen 325 Mg Tablet) 650 mg PO Q6H PRN PRN Reason: Pain, Mild 1-3,fever,headache Al Hydroxide/Mg Hydroxide (Magnesium Hydrox/Alum Hydrox 30 Ml Oral.Susp) 30 ml PO Q6H PRN PRN Reason: heartburn Last Admin: 06/22/24 04:26 Dose: 30 ml Documented By: TEMO-CORY Albuterol/Ipratropium (Albuterol/Iprat 2.5/0.5mg 3 Ml Ampul.Neb) 3 ml INHALE RQ4H WHILE AWAKE PRN PRN Reason: shortness of breath/wheeze Benzocaine (Throat Lozenge, Medicated Lozenge) 1 lozenge MUCOUS MEM Q2H PRN PRN Reason: Sore Throat Last Admin: 07/06/24 15:16 Dose: 1 lozenge Documented By: GRAZIC Benzonatate (Benzonatate 100 Mg Capsule) 200 mg PO TID PRN PRN Reason: Cough Last Admin: 07/06/24 15:16 Dose: 200 mg Documented By: VELVET Calcium Carbonate (Calcium Carbonate 750 Mg Tab.Chew) 750 mg PO Q4H PRN PRN Reason: Heartburn Last Admin: 06/22/24 09:47 Dose: 750 mg Documented By: ALVINA Heparin Sodium (Porcine) 50 (units/ Sodium Chloride 5 ml) 0 units IVFLUSH TID [facility] Last Admin: 07/06/24 15:08 Dose: 50 unit Documented By: VELVET Diphenhydramine HCl (Diphenhydramine Hcl 25 Mg Capsule) 25 mg PO Q6H PRN PRN Reason: Rash Last Admin: 07/06/24 15:21 Dose: 25 mg Documented By: VELVET Enoxaparin Sodium (Enoxaparin Sodium 40 Mg/0.4 Ml Syringe) 40 mg SUBCUT Q24H [facility] Last Admin: 07/06/24 15:10 Dose: 40 mg Documented By: VELVET Guaifenesin (Guaifenesin 200 Mg/10 Ml 10 Ml Liquid) 10 ml PO Q6H PRN PRN Reason: Cough Last Admin: 07/06/24 02:20 Dose: 10 ml Documented By: VALENTINA Guaifenesin/Dextromethorphan (Guaifenesin Dm 200/20/10 Ml 10 Ml Syrup) 10 ml PO QID [facility] [place] Last Admin: 07/06/24 12:08 Dose: 10 ml Documented By: VELVET Levofloxacin (Levaquin) 750 mg in 150 mls @ 100 mls/hr IV Q24H [facility] Last Infusion: 07/06/24 09:51 Dose: Infused Documented By: VELVET Loperamide HCl (Loperamide Hcl 2 Mg Capsule) 4 mg PO Q4H PRN PRN Reason: Diarrhea Magnesium Hydroxide (Milk Of Magnesia 30 Ml Oral.Susp) 30 ml PO DAILY PRN PRN Reason: Constipation Melatonin (Melatonin 3 Mg Tablet) 6 mg PO BEDTIME PRN PRN Reason: Insomnia Nicotine Polacrilex (Nicotine Polacrilex Lozenge 2 Mg Lozenge) 2 mg BUCCAL Q2H PRN PRN Reason: Nicotine Cravings Omeprazole (Omeprazole 20 Mg Capsule.Dr) 20 mg PO BID@0630,1630 [facility] Last Admin: 07/06/24 06:12 Dose: 20 mg Documented By: VALENTINA Ondansetron HCl (Ondansetron Hcl 4 Mg/2 Ml Vial) 4 mg IVPUSH Q8H PRN PRN Reason: Nausea and Vomiting Last Admin: 06/22/24 19:52 Dose: 4 mg Documented By: TEMO-SHARIFZEB Sodium Chloride (0.9 % Sodium Chloride Flush 3 Ml Syringe) 3 ml IVFLUSH QSHIFT [facility] Last Admin: 07/06/24 15:12 Dose: 3 ml Documented By: DONNAIC Labs 07/06/24 07:15 07/05/24 09:19 Labs: Laboratory Results - last 24 hr 07/06/24 07:15 MCV 89.7 MCH 30.4 MCHC 33.9 RDW 12.8 Plt Count 344 MPV 9.4 Absolute Nucleated RBC 0.000 Nucleated RBC % (auto) 0.0 Microbiology Microbiology Results: Microbiology 07/04/24 08:23 Gram Stain - Final Sputum - Expectorated Sputum Culture - Preliminary Culture in progress. Assessment and Plan (1) Acute hypoxic respiratory failure: Status: Acute (2) Abscess of lung with pneumonia: Status: Acute Plan 59yo M with no known PMHx but no current primary care for past 5 yr, 45 pack- year smoking history presenting with dyspnea, productive cough, and fatigue x 1 month failed outpt therapy [levofloxacin x5d + doxycycline x10d]; admitted for hypoxia and sepsis due to multifocal pneumonia with multiple abscesses. 1.Acute hypoxic respiratory failrue and sepsis due to multifocal pneumonia with multiple abscesses - vancomycin 06/14-06/17 [MRSA swab negative], cefepime 06/14-06/24, metronidazole 06/16-06/24, azithromycin 06/17-06/24 - changed to meropenem 06/24 and plan ertapenem to complete 4 wk IV ABX per ID; end date 07/12; midline placed 06/24 - Legionella UAg negative, T-spot IGRA negative, TB PCR negative, AFB smear x3 negative, HIV negative; per ID yeast in sputum not significant unless Cryptococcus sp. - ID + Pulm consulted; unable to drain due to risk of pleural fistula; medical treatment with ABX recommedned - wean O2 as tolerated; currently on 7L O2 - Pulm recommended clindamycin but pt appears to have allergy to it so stopped 2.Drug rash - somewhat worse today -increased methylprednisolone to 60 mg IV q.6 3.HypoNa - resolved after fluid restriction, urea, and NaCl IV and tabs; released fluid restriction and d/c'ed NaCl tabs; Na slightly down today; will give 1L NS as pt has been having diarrhea Enoxaparin Full code dispo - PT evaluation: IPR recommended In my clinical judgment, the patient requires continued inpatient hospitalization for the following reasons: IV ABX, hypoxia, hypoNa Quality Stroke Does the patient have a stroke diagnosis?: No VTE Prior VTE?: No VTE Risk Level:: Medical - moderate - high VTE Device Contraindication: Treatment Not Indicated VTE Drug Contraindication: N/A - Med Ordered
[2024-07-06 15:31] VITALS: BP 128/65; PULSE 96; RESP 20; TEMP 36.2; O2SAT 90
[2024-07-06] MEDS: methylPREDNISolone Sod Succ 125 MG/2 ML VIAL 60 MG IVPUSH ×2 (15:59→21:06)
[2024-07-06 19:14] VITALS: BP 112/65; PULSE 83; RESP 20; TEMP 37.2; O2SAT 91
[2024-07-06 19:40] VITALS: PULSE 83; RESP 20; O2SAT 90
[2024-07-06] MEDS: Albuterol/Iprat 2.5/0.5MG 3 ML AMPUL.NEB INHALE (19:40)
[2024-07-07 03:28] VITALS: BP 125/61; PULSE 66; RESP 20; TEMP 36.6; O2SAT 91
[2024-07-07] MEDS: methylPREDNISolone Sod Succ 125 MG/2 ML VIAL 60 MG IVPUSH ×2 (03:28→08:37)
[2024-07-07] MEDS: Omeprazole 20 MG CAPSULE.DR PO ×2 (05:49→15:42)
[2024-07-07 06:26] LABS: Basophils Percent Auto 0.1 % (0-2); Eosinophils Percent Auto 0.1 % (0-4); Hematocrit 49.3 % (42.0-52.0); Hemoglobin 16.9 g/dl (14.0-18.0); Imm Gran Abs Auto 0.13 X10*3/uL (0.00-0.03); Imm Gran Pct Auto 0.8 % (0.0-0.4); Lymphocytes Absolute Auto 0.9 X10*3/uL (1.2-4.9); Lymphocytes Percent Auto 5.4 % (20-40); MANUAL DIFF FLAG SCAN; Mean Corpuscular HGB Conc 34.3 g/dl (31.0-36.0); Mean Corpuscular Hemoglobin 30.6 pg (27.0-33.0); Mean Corpuscular Volume 89.2 fL (80.0-98.0); Monocytes Absolute Auto 0.5 X10*3/uL (0.1-1.2); Neutrophils Absolute Auto 14.5 x10*3/uL (2.0-8.3); Neutrophils Percent Auto 90.6 % (45-73); Platelet Count 319 X10*3/uL (160-400); Red Blood Count 5.53 X10*6/uL (4.60-5.80); Red Cell Distribution Width 12.7 % (11.0-16.0); SCAN SMEAR FLAG 1; White Blood Count 16.1 X10*3/uL (4.8-10.8)
[2024-07-07 06:47] LABS: Alanine Aminotransferase 41 U/L (0-40); Albumin Level 3.5 g/dL (3.5-5.0); Anion Gap 15 (12-20); Aspartate Amino Transferase 23 U/L (5-37); Bilirubin Total 0.3 mg/dL (0.0-1.0); Blood Urea Nitrogen 18 mg/dL (9-16); Calcium 9.7 mg/dL (8.4-10.2); Carbon Dioxide 28 mmol/L (22-29); Chloride 94 mmol/L (96-108); Creatinine Clr Calc Pharmacy 107.5; Estimated Glomerular Filt Rate > 60; Glucose Fasting 122 mg/dL (60-99); Potassium 4.4 mmol/L (3.3-5.1); Sodium 133 mmol/L (135-145); Total Protein 6.5 g/dL (6.5-8.0)
[2024-07-07 06:51] LABS: Alkaline Phosphatase 125 U/L (39-117)
[2024-07-07 07:07] LABS: SLIDE REVIEW VERIFIED
[2024-07-07 07:28] VITALS: BP 119/72; PULSE 74; RESP 18; TEMP 36.6; O2SAT 90
[2024-07-07] MEDS: levoFLOXacin/D5W 750 MG/150 ML PIGGYBACK 100 MG IV (08:37)
[2024-07-07] MEDS: guaiFENesin DM 200/20/10 ML 10 ML SYRUP PO ×4 (08:37→21:17)
[2024-07-07] MEDS: Albuterol/Iprat 2.5/0.5MG 3 ML AMPUL.NEB INHALE (08:38)
[2024-07-07] MEDS: Heparin Sodium,Porcine Flush 50 UNITS, 0.9 % Sodium Chloride Flush 5 ML IVFLUSH ×3 (10:27→21:17)
--- NOTE | 2024-07-07 11:17 | HO.PM.IMPN ---
Subjective Subjective Date of Service: 07/07/24 Interval History: persistent copious watery secretions, rash upper chest back fading with no itching, denies fever, diarrhea slowing, no nausea no vomiting no other acute events overnight. Review of Systems All other system reviewed and are negative. Physical Exam Vital Signs: Vital Signs: Last Vital Signs Temp 97.9 F 07/07/24 07:28 Pulse 74 07/07/24 07:28 Resp 18 07/07/24 07:28 BP 119/72 07/07/24 07:28 Pulse Ox 90 L 07/07/24 07:28 O2 Del Method Oxymask 07/07/24 07:28 O2 Flow Rate 7 07/07/24 07:28 BMI result Body Mass Index 20.8 Const: Other: Gen: in no acute distress HEENT: sclera anicteric, moist mucus membranes Neck: supple Lungs: inspiratory crackles L >rt Heart: regular rate and rhythm, no murmurs Abd: soft, non-tender, non-distended Ext: no edema, R basilic midline Skin: warm/well-perfused, erythematous macules on upper chest and upper back Neuro: alert and oriented x3, no focal findings Psych: appropriate affect Objective Data Active Medications Acetaminophen (Acetaminophen 325 Mg Tablet) 650 mg PO Q6H PRN PRN Reason: Pain, Mild 1-3,fever,headache Al Hydroxide/Mg Hydroxide (Magnesium Hydrox/Alum Hydrox 30 Ml Oral.Susp) 30 ml PO Q6H PRN PRN Reason: heartburn Last Admin: 06/22/24 04:26 Dose: 30 ml Documented By: LES Albuterol/Ipratropium (Albuterol/Iprat 2.5/0.5mg 3 Ml Ampul.Neb) 3 ml INHALE RQ4H WHILE AWAKE PRN PRN Reason: shortness of breath/wheeze Last Admin: 07/07/24 08:38 Dose: 3 ml Documented By: MARIA ELENA Benzocaine (Throat Lozenge, Medicated Lozenge) 1 lozenge MUCOUS MEM Q2H PRN PRN Reason: Sore Throat Last Admin: 07/06/24 15:16 Dose: 1 lozenge Documented By: GRAZIC Benzonatate (Benzonatate 100 Mg Capsule) 200 mg PO TID PRN PRN Reason: Cough Last Admin: 07/06/24 15:16 Dose: 200 mg Documented By: VELVET Calcium Carbonate (Calcium Carbonate 750 Mg Tab.Chew) 750 mg PO Q4H PRN PRN Reason: Heartburn Last Admin: 06/22/24 09:47 Dose: 750 mg Documented By: ALVINA Heparin Sodium (Porcine) 50 (units/ Sodium Chloride 5 ml) 0 units IVFLUSH TID [facility] [place] Last Admin: 07/07/24 10:27 Dose: 50 unit Documented By: LONG Diphenhydramine HCl (Diphenhydramine Hcl 25 Mg Capsule) 25 mg PO Q6H PRN PRN Reason: Rash Last Admin: 07/06/24 15:21 Dose: 25 mg Documented By: VELVET Enoxaparin Sodium (Enoxaparin Sodium 40 Mg/0.4 Ml Syringe) 40 mg SUBCUT Q24H [facility] [place] Last Admin: 07/06/24 15:10 Dose: 40 mg Documented By: VELVET Guaifenesin (Guaifenesin 200 Mg/10 Ml 10 Ml Liquid) 10 ml PO Q6H PRN PRN Reason: Cough Last Admin: 07/06/24 02:20 Dose: 10 ml Documented By: VALENTINA Guaifenesin/Dextromethorphan (Guaifenesin Dm 200/20/10 Ml 10 Ml Syrup) 10 ml PO QID [facility] [place] Last Admin: 07/07/24 08:37 Dose: 10 ml Documented By: MARIA ELENA Levofloxacin (Levaquin) 750 mg in 150 mls @ 100 mls/hr IV Q24H [facility] [place] Last Infusion: 07/07/24 10:20 Dose: Infused Documented By: MARIA ELENA Loperamide HCl (Loperamide Hcl 2 Mg Capsule) 4 mg PO Q4H PRN PRN Reason: Diarrhea Magnesium Hydroxide (Milk Of Magnesia 30 Ml Oral.Susp) 30 ml PO DAILY PRN PRN Reason: Constipation Melatonin (Melatonin 3 Mg Tablet) 6 mg PO BEDTIME PRN PRN Reason: Insomnia Methylprednisolone Sodium Succinate (Methylprednisolone Sod Succ 125 Mg/2 Ml Vial) 60 mg IVPUSH Q6H [facility] [place] Last Admin: 07/07/24 08:37 Dose: 60 mg Documented By: MARIA ELENA Nicotine Polacrilex (Nicotine Polacrilex Lozenge 2 Mg Lozenge) 2 mg BUCCAL Q2H PRN PRN Reason: Nicotine Cravings Omeprazole (Omeprazole 20 Mg Capsule.) 20 mg PO BID@0630,1630 [facility] [place] Last Admin: 07/07/24 05:49 Dose: 20 mg Documented By: VALENTINA Ondansetron HCl (Ondansetron Hcl 4 Mg/2 Ml Vial) 4 mg IVPUSH Q8H PRN PRN Reason: Nausea and Vomiting Last Admin: 06/22/24 19:52 Dose: 4 mg Documented By: EBONI Sodium Chloride (0.9 % Sodium Chloride Flush 3 Ml Syringe) 3 ml IVFLUSH QSHIFT [facility] [place] Last Admin: 07/07/24 08:52 Dose: Not Given Documented By: MARIA ELENA Non-Admin Reason: Previously Administered Labs 07/07/24 05:57 07/07/24 05:57 Labs: Laboratory Results - last 24 hr 07/07/24 05:57 MCV 89.2 MCH 30.6 MCHC 34.3 RDW 12.7 Plt Count 319 MPV 9.0 L Immature Gran % (Auto) 0.8 H Neut % (Auto) 90.6 H Lymph % (Auto) 5.4 L [place] % (Auto) 3.0 Eos % (Auto) 0.1 Baso % (Auto) 0.1 Lymph # (Auto) 0.9 L [place] # (Auto) 0.5 Eos # (Auto) 0.0 Baso # (Auto) 0.0 Abs Immat Gran (auto) 0.13 H Absolute Neuts (auto) 14.5 H Absolute Nucleated RBC 0.000 Nucleated RBC % (auto) 0.0 Smear Tech's Comments VERIFIED Anion Gap 15 Estim Creat Clear Calc 107.5 Estimated GFR > 60 Fasting Glucose 122 H Calcium 9.7 Total Bilirubin 0.3 AST 23 ALT 41 H Alkaline Phosphatase 125 H Total Protein 6.5 Albumin 3.5 Microbiology Microbiology Results: Microbiology 07/04/24 08:23 Gram Stain - Final Sputum - Expectorated Sputum Culture - Preliminary Yeast Assessment and Plan (1) 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 (2) Pneumonia: Status: Acute (3) Acute hypoxic respiratory failure: Status: Acute (4) Hyponatremia: Status: Acute Plan 59yo M with no known PMHx but no current primary care for past 5 yr, 45 pack-year smoking history presenting with dyspnea, productive cough, and fatigue x 1 month failed outpt therapy [levofloxacin x5d + doxycycline x10d], admitted for hypoxia and sepsis due to multifocal pneumonia with multiple abscesses acute hypoxic respiratory failrue and sepsis due to multifocal pneumonia with multiple abscesses - persistent cough with copious watery phlegm - vancomycin 06/14-06/17 [MRSA swab negative], cefepime 06/14-06/24, metronidazole 06/16-06/24, azithromycin 06/17-06/24 - changed to meropenem 06/24 and plan ertapenem to complete 4 wk IV ABX per ID; end date 07/12; midline placed 06/24 - Legionella UAg negative, T-spot IGRA negative, TB PCR negative, AFB smear x3 negative, HIV negative; per ID yeast in sputum not significant unless Cryptococcus sp. - ID + Pulm consulted; unable to drain due to risk of pleural fistula; medical treatment with ABX recommedned - oxygen requirement unchanged in last 48 hours; currently on 7L O2 - Pulm recommended clindamycin but pt appears to have allergy to it so stopped, being followed by pulmonology will discuss further treatment plan. - developed rash to meropenem therefore meropenem discontinued and patient placed on Levaquin on 07/05 drug rash - improving, will decrease dose of Solu Medrol, hypoNa - resolved after fluid restriction, urea, and NaCl IV and tabs; sodium chloride tablets and fluid restriction subsequently discontinued sodium trended down to low 130s likely due to diarrhea repeat sodium remained stable diarrhea - Cdiff + GI panel negative; diarrhea improving likely due to antibiotics erythrocytosis - likely secondary to hypoxia from COPD; therapeutic phlebotomy per Heme-Onc due to increased risk of thrombosis; epo level normal; monitor CBC periodically GERD - PPI, Maalox tobacco abuse - NRT, counseling done VTE ppx - enoxaparin dispo - PT evaluation: IPR recommended Quality Stroke Does the patient have a stroke diagnosis?: No VTE Prior VTE?: No VTE Risk Level:: Medical - moderate - high VTE Device Contraindication: Treatment Not Indicated VTE Drug Contraindication: N/A - Med Ordered
[2024-07-07 14:41] VITALS: PULSE 109; O2SAT 88
[2024-07-07 15:11] VITALS: BP 120/70; PULSE 93; RESP 20; TEMP 37.3; O2SAT 91
[2024-07-07] MEDS: Enoxaparin Sodium 40 MG/0.4 ML SYRINGE SUBCUT (16:27)
[2024-07-07 19:25] VITALS: BP 129/66; PULSE 90; RESP 17; TEMP 36.7; O2SAT 92
[2024-07-07] MEDS: methylPREDNISolone Sod Succ 125 MG/2 ML VIAL 40 MG IVPUSH (21:16)
[2024-07-08 03:31] VITALS: BP 135/77; PULSE 76; RESP 20; TEMP 36.3; O2SAT 93
[2024-07-08] MEDS: guaiFENesin 200 MG/10 ML 10 ML LIQUID PO (05:48)
[2024-07-08] MEDS: Omeprazole 20 MG CAPSULE.DR PO ×2 (05:48→15:32)
[2024-07-08] MEDS: Throat Lozenge, Medicated LOZENGE 1 LOZENGE MUCOUS MEM (05:49)
[2024-07-08] MEDS: methylPREDNISolone Sod Succ 125 MG/2 ML VIAL 40 MG IVPUSH (07:27)
[2024-07-08] MEDS: levoFLOXacin/D5W 750 MG/150 ML PIGGYBACK 100 MG IV (07:27)
[2024-07-08] MEDS: guaiFENesin DM 200/20/10 ML 10 ML SYRUP PO ×4 (07:27→22:33)
[2024-07-08] MEDS: Heparin Sodium,Porcine Flush 50 UNITS, 0.9 % Sodium Chloride Flush 5 ML IVFLUSH ×2 (07:28→15:36)
[2024-07-08 07:34] VITALS: BP 134/83; PULSE 78; RESP 20; TEMP 36.6; O2SAT 91
[2024-07-08] MEDS: 0.9 % Sodium Chloride Flush 3 ML SYRINGE IVFLUSH ×3 (07:46→22:33)
--- NOTE | 2024-07-08 11:12 | MHC.CM.PN ---
Per MD rounds, patient not medically cleared for dc. CM will continue to follow.
--- NOTE | 2024-07-08 12:10 | MHC.CLN ---
Addendum entered by Lindy Andersen RD 07/08/24 12:45: ENSURE BID REMOVED PER PATIENT REQUEST. Original Note: F/U DIET=REGULAR. NO FLUID RESTRICTION. ENSURE BID TO PROMOTE NUTRITIONAL INTAKE (700 KCALS, 40 G PROTEIN). MOST RECENT INTAKE VARY GOOD WITH MANY MEALS 100%. SKIN WITH REDNESS TO BILATERAL BUTTOCKS. CONTINUE CURRENT DIET AND SUPPLEMENT. RD TO MONITOR WEEKLY.
[2024-07-08] MEDS: Albuterol/Iprat 2.5/0.5MG 3 ML AMPUL.NEB INHALE (14:44)
[2024-07-08 14:57] VITALS: PULSE 78; RESP 20; O2SAT 91
[2024-07-08 14:58] VITALS: BP 121/75; PULSE 101; RESP 19; TEMP 37; O2SAT 92
[2024-07-08] MEDS: Fluconazole in NaCl,Iso-Osm 400 MG/200 ML PIGGYBACK 100 MG IV (15:24)
[2024-07-08] MEDS: Enoxaparin Sodium 40 MG/0.4 ML SYRINGE SUBCUT (15:30)
[2024-07-08 19:34] VITALS: BP 123/65; PULSE 93; RESP 18; TEMP 36.8; O2SAT 93
[2024-07-09 00:03] VITALS: RESP 18
[2024-07-09 03:32] VITALS: BP 117/76; PULSE 79; RESP 20; TEMP 36.4; O2SAT 91
[2024-07-09] MEDS: Omeprazole 20 MG CAPSULE.DR PO ×2 (06:03→16:25)
[2024-07-09 07:35] VITALS: BP 119/80; PULSE 73; RESP 18; TEMP 36.2; O2SAT 90
[2024-07-09] MEDS: levoFLOXacin/D5W 750 MG/150 ML PIGGYBACK 100 MG IV (09:58)
[2024-07-09] MEDS: Fluconazole in NaCl,Iso-Osm 400 MG/200 ML PIGGYBACK 100 MG IV (11:45)
[2024-07-09] MEDS: 0.9 % Sodium Chloride Flush 3 ML SYRINGE IVFLUSH ×2 (11:46→16:33)
--- NOTE | 2024-07-09 13:04 | P.PNIM_ITS ---
Subjective Subjective Date of Service: 07/09/24 Interval History: Being followed for hypoxic respiratory failure/pneumonia. Feels a little better today, coughing up watery secretions but slightly less from before Rash is fading denies itching, no fevers, no chills tolerating diet. Review of Systems All other system reviewed and are negative. Physical Exam 2 Vital Signs: Vital Signs: Last Vital Signs Temp 97.2 F 07/09/24 07:35 Pulse 73 07/09/24 07:35 Resp 18 07/09/24 07:35 BP 119/80 07/09/24 07:35 Pulse Ox 90 L 07/09/24 07:35 O2 Del Method Oxymask 07/09/24 07:35 O2 Flow Rate 7.0 07/09/24 07:35 BMI result Body Mass Index 20.8 Const: Other: Gen: in no acute distress HEENT: sclera anicteric, moist mucus membranes Neck: supple Lungs: inspiratory crackles L >rt Heart: regular rate and rhythm, no murmurs Abd: soft, non-tender, non-distended Ext: no edema, R basilic midline Skin: warm/well-perfused, upper chest and upper back macular rash fading. Neuro: alert and oriented x3, no focal findings Psych: appropriate affect Objective Data Active Medications Acetaminophen (Acetaminophen 325 Mg Tablet) 650 mg PO Q6H PRN PRN Reason: Pain, Mild 1-3,fever,headache Al Hydroxide/Mg Hydroxide (Magnesium Hydrox/Alum Hydrox 30 Ml Oral.Susp) 30 ml PO Q6H PRN PRN Reason: heartburn Last Admin: 06/22/24 04:26 Dose: 30 ml Documented By: LES Albuterol/Ipratropium (Albuterol/Iprat 2.5/0.5mg 3 Ml Ampul.Neb) 3 ml INHALE RQ4H WHILE AWAKE PRN PRN Reason: shortness of breath/wheeze Last Admin: 07/08/24 14:44 Dose: 3 ml Documented By: URI Benzocaine (Throat Lozenge, Medicated Lozenge) 1 lozenge MUCOUS MEM Q2H PRN PRN Reason: Sore Throat Last Admin: 07/08/24 05:49 Dose: 1 lozenge Documented By: PITER Benzonatate (Benzonatate 100 Mg Capsule) 200 mg PO TID PRN PRN Reason: Cough Last Admin: 07/06/24 15:16 Dose: 200 mg Documented By: VELVET Calcium Carbonate (Calcium Carbonate 750 Mg Tab.Chew) 750 mg PO Q4H PRN PRN Reason: Heartburn Last Admin: 06/22/24 09:47 Dose: 750 mg Documented By: ALVINA Heparin Sodium (Porcine) 50 (units/ Sodium Chloride 5 ml) 0 units IVFLUSH TID [facility] Last Admin: 07/08/24 21:55 Dose: Not Given Documented By: DAIJA Non-Admin Reason: Midline, not PICC. NS flush per policy Diphenhydramine HCl (Diphenhydramine Hcl 25 Mg Capsule) 25 mg PO Q6H PRN PRN Reason: Rash Last Admin: 07/06/24 15:21 Dose: 25 mg Documented By: VELVET Enoxaparin Sodium (Enoxaparin Sodium 40 Mg/0.4 Ml Syringe) 40 mg SUBCUT Q24H [facility] Last Admin: 07/08/24 15:30 Dose: 40 mg Documented By: COURTNEY Guaifenesin (Guaifenesin 200 Mg/10 Ml 10 Ml Liquid) 10 ml PO Q6H PRN PRN Reason: Cough Last Admin: 07/08/24 05:48 Dose: 10 ml Documented By: PITER Guaifenesin/Dextromethorphan (Guaifenesin Dm 200/20/10 Ml 10 Ml Syrup) 10 ml PO QID PRN PRN Reason: Cough Levofloxacin (Levaquin) 750 mg in 150 mls @ 100 mls/hr IV Q24H [facility] Last Infusion: 07/09/24 11:30 Dose: Infused Documented By: SHANON Fluconazole (Diflucan) 400 mg in 200 mls @ 100 mls/hr IV Q24H [facility] Last Admin: 07/09/24 11:45 Dose: 100 mls/hr Documented By: SHANON Loperamide HCl (Loperamide Hcl 2 Mg Capsule) 4 mg PO Q4H PRN PRN Reason: Diarrhea Magnesium Hydroxide (Milk Of Magnesia 30 Ml Oral.Susp) 30 ml PO DAILY PRN PRN Reason: Constipation Melatonin (Melatonin 3 Mg Tablet) 6 mg PO BEDTIME PRN PRN Reason: Insomnia Nicotine Polacrilex (Nicotine Polacrilex Lozenge 2 Mg Lozenge) 2 mg BUCCAL Q2H PRN PRN Reason: Nicotine Cravings Omeprazole (Omeprazole 20 Mg Capsule.) 20 mg PO BID@0630,1630 [facility] Last Admin: 07/09/24 06:03 Dose: 20 mg Documented By: DAIJA Ondansetron HCl (Ondansetron Hcl 4 Mg/2 Ml Vial) 4 mg IVPUSH Q8H PRN PRN Reason: Nausea and Vomiting Last Admin: 06/22/24 19:52 Dose: 4 mg Documented By: TEMO-SHARIFZEJong Sodium Chloride (0.9 % Sodium Chloride Flush 3 Ml Syringe) 3 ml IVFLUSH QSHIFT [facility] Last Admin: 07/09/24 11:46 Dose: 3 ml Documented By: LEISATREstella Labs 07/07/24 05:57 07/07/24 05:57 Assessment and Plan (1) Hyponatremia: Status: Acute (2) 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 (3) Pneumonia: Status: Acute (4) Acute hypoxic respiratory failure: Status: Acute Plan 59yo M with no known PMHx but no current primary care for past 5 yr, 45 pack- year smoking history presenting with dyspnea, productive cough, and fatigue x 1 month failed outpt therapy [levofloxacin x5d + doxycycline x10d], admitted for hypoxia and sepsis due to multifocal pneumonia with multiple abscesses acute hypoxic respiratory failrue and sepsis due to multifocal pneumonia with multiple abscesses - persistent cough with copious watery phlegm - vancomycin 06/14-06/17 [MRSA swab negative], cefepime 06/14-06/24, metronidazole 06/16-06/24, azithromycin 06/17-06/24 - changed to meropenem 06/24 and plan ertapenem to complete 4 wk IV ABX per ID; end date 07/12; midline placed 06/24 - Legionella UAg negative, T-spot IGRA negative, TB PCR negative, AFB smear x3 negative, HIV negative; per ID yeast in sputum not significant unless Cryptococcus sp. - ID + Pulm consulted; unable to drain due to risk of pleural fistula; medical treatment with ABX recommedned - oxygen requirement unchanged in last several days; currently on 7L O2 Case discussed with Dr. Calloway, he will consider bronchoscopy on 07/09 if not improving - developed rash to meropenem therefore meropenem discontinued and patient placed on Levaquin on 07/05 drug rash - improving, iv Solu Medrol 1 discontinue, hypoNa - resolved after fluid restriction, urea, and NaCl IV and tabs; Sodium 133 all medication discontinued diarrhea - Cdiff + GI panel negative; diarrhea resolved likely due to antibiotics erythrocytosis - likely secondary to hypoxia from COPD; therapeutic phlebotomy per Heme-Onc due to increased risk of thrombosis; epo level normal; hematocrit stable 49.3 GERD - PPI, Maalox tobacco abuse - NRT, counseling done VTE ppx - enoxaparin dispo - PT evaluation: IPR recommended Quality Stroke Does the patient have a stroke diagnosis?: No VTE Prior VTE?: No VTE Risk Level:: Medical - moderate - high VTE Device Contraindication: Treatment Not Indicated VTE Drug Contraindication: N/A - Med Ordered
[2024-07-09] MEDS: Heparin Sodium,Porcine Flush 50 UNITS, 0.9 % Sodium Chloride Flush 5 ML IVFLUSH ×3 (14:04→22:04)
[2024-07-09 15:06] VITALS: BP 114/68; PULSE 109; RESP 17; TEMP 36.9; O2SAT 91
[2024-07-09] MEDS: Enoxaparin Sodium 40 MG/0.4 ML SYRINGE SUBCUT (16:25)
[2024-07-09] MEDS: guaiFENesin DM 200/20/10 ML 10 ML SYRUP PO ×2 (16:25→22:11)
[2024-07-09 19:33] VITALS: BP 106/57; PULSE 96; RESP 20; TEMP 36.3; O2SAT 91
[2024-07-09] MEDS: Benzonatate 100 MG CAPSULE 200 MG PO (22:11)
[2024-07-10 03:37] VITALS: BP 123/84; PULSE 83; RESP 18; TEMP 36.9; O2SAT 91
[2024-07-10] MEDS: Omeprazole 20 MG CAPSULE.DR PO ×2 (05:42→16:15)
[2024-07-10 07:30] VITALS: BP 116/73; PULSE 73; RESP 18; TEMP 36.3; O2SAT 92
[2024-07-10] MEDS: 0.9 % Sodium Chloride Flush 3 ML SYRINGE IVFLUSH ×2 (10:55→16:20)
[2024-07-10] MEDS: levoFLOXacin/D5W 750 MG/150 ML PIGGYBACK 100 MG IV (10:55)
[2024-07-10] MEDS: Heparin Sodium,Porcine Flush 50 UNITS, 0.9 % Sodium Chloride Flush 5 ML IVFLUSH ×3 (10:56→20:05)
--- NOTE | 2024-07-10 11:01 | MHC.CM.PN ---
Per MD rounds patient not medically cleared for dc, ? plan for bronch tomorrow. [facility] updated. CM will continue to follow.
--- NOTE | 2024-07-10 12:01 | HO.PM.IMPN ---
Subjective Subjective Date of Service: 07/10/24 Interval History: Being followed for hypoxic respiratory failure/pneumonia. Feeling better persistent cough with watery secretions no change in output. No fevers, no chills, no acute events overnight. Review of Systems All other system reviewed and are negative Physical Exam Vital Signs: Vital Signs: Last Vital Signs Temp 97.4 F 07/10/24 07:30 Pulse 73 07/10/24 07:30 Resp 18 07/10/24 07:30 BP 116/73 07/10/24 07:30 Pulse Ox 92 07/10/24 07:30 O2 Del Method Oxymask 07/10/24 07:30 O2 Flow Rate 7.0 07/10/24 07:30 BMI result Body Mass Index 20.8 Const: Other: Gen: in no acute distress HEENT: sclera anicteric, moist mucus membranes Neck: supple Lungs: Persistent inspiratory crackles L >rt Heart: regular rate and rhythm, no murmurs Abd: soft, non-tender, non-distended Ext: no edema, R basilic midline Skin: warm/well-perfused, upper chest and upper back macular rash fading. Neuro: alert and oriented x3, no focal findings Psych: appropriate affect Objective Data Active Medications Acetaminophen (Acetaminophen 325 Mg Tablet) 650 mg PO Q6H PRN PRN Reason: Pain, Mild 1-3,fever,headache Al Hydroxide/Mg Hydroxide (Magnesium Hydrox/Alum Hydrox 30 Ml Oral.Susp) 30 ml PO Q6H PRN PRN Reason: heartburn Last Admin: 06/22/24 04:26 Dose: 30 ml Documented By: LES Benzocaine (Throat Lozenge, Medicated Lozenge) 1 lozenge MUCOUS MEM Q2H PRN PRN Reason: Sore Throat Last Admin: 07/08/24 05:49 Dose: 1 lozenge Documented By: PITER Benzonatate (Benzonatate 100 Mg Capsule) 200 mg PO TID PRN PRN Reason: Cough Last Admin: 07/09/24 22:11 Dose: 200 mg Documented By: DANNY Calcium Carbonate (Calcium Carbonate 750 Mg Tab.Chew) 750 mg PO Q4H PRN PRN Reason: Heartburn Last Admin: 06/22/24 09:47 Dose: 750 mg Documented By: ALVINA Heparin Sodium (Porcine) 50 (units/ Sodium Chloride 5 ml) 0 units IVFLUSH TID [facility] [place] Last Admin: 07/10/24 10:56 Dose: 55 unit Documented By: RAFA Comments: Diphenhydramine HCl (Diphenhydramine Hcl 25 Mg Capsule) 25 mg PO Q6H PRN PRN Reason: Rash Last Admin: 07/06/24 15:21 Dose: 25 mg Documented By: VELVET Enoxaparin Sodium (Enoxaparin Sodium 40 Mg/0.4 Ml Syringe) 40 mg SUBCUT Q24H [facility] [place] Last Admin: 07/09/24 16:25 Dose: 40 mg Documented By: SHANON Guaifenesin (Guaifenesin 200 Mg/10 Ml 10 Ml Liquid) 10 ml PO Q6H PRN PRN Reason: Cough Last Admin: 07/08/24 05:48 Dose: 10 ml Documented By: PITER Guaifenesin/Dextromethorphan (Guaifenesin Dm 200/20/10 Ml 10 Ml Syrup) 10 ml PO QID PRN PRN Reason: Cough Last Admin: 07/09/24 22:11 Dose: 10 ml Documented By: DANNY Levofloxacin (Levaquin) 750 mg in 150 mls @ 100 mls/hr IV Q24H [facility] [place] Last Admin: 07/10/24 10:55 Dose: 100 mls/hr Documented By: RAAF Fluconazole (Diflucan) 400 mg in 200 mls @ 100 mls/hr IV Q24H [facility] [place] Last Infusion: 07/09/24 13:45 Dose: Infused Documented By: SHANON Loperamide HCl (Loperamide Hcl 2 Mg Capsule) 4 mg PO Q4H PRN PRN Reason: Diarrhea Magnesium Hydroxide (Milk Of Magnesia 30 Ml Oral.Susp) 30 ml PO DAILY PRN PRN Reason: Constipation Melatonin (Melatonin 3 Mg Tablet) 6 mg PO BEDTIME PRN PRN Reason: Insomnia Nicotine Polacrilex (Nicotine Polacrilex Lozenge 2 Mg Lozenge) 2 mg BUCCAL Q2H PRN PRN Reason: Nicotine Cravings Omeprazole (Omeprazole 20 Mg Capsule.) 20 mg PO BID@0630,1630 [facility] [place] Last Admin: 07/10/24 05:42 Dose: 20 mg Documented By: DANNY Ondansetron HCl (Ondansetron Hcl 4 Mg/2 Ml Vial) 4 mg IVPUSH Q8H PRN PRN Reason: Nausea and Vomiting Last Admin: 06/22/24 19:52 Dose: 4 mg Documented By: EBONI Sodium Chloride (0.9 % Sodium Chloride Flush 3 Ml Syringe) 3 ml IVFLUSH QSHIFT [facility] Last Admin: 07/10/24 10:55 Dose: 3 ml Documented By: ZENONAC Labs 07/07/24 05:57 07/07/24 05:57 Assessment and Plan (1) Hyponatremia: Status: Acute (2) 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 (3) Pneumonia: Status: Acute (4) Acute hypoxic respiratory failure: Status: Acute Plan 59yo M with no known PMHx but no current primary care for past 5 yr, 45 pack-year smoking history presenting with dyspnea, productive cough, and fatigue x 1 month failed outpt therapy [levofloxacin x5d + doxycycline x10d], admitted for hypoxia and sepsis due to multifocal pneumonia with multiple abscesses acute hypoxic respiratory failrue and sepsis due to multifocal pneumonia with multiple abscesses - persistent cough with copious watery phlegm - vancomycin 06/14-06/17 [MRSA swab negative], cefepime 06/14-06/24, metronidazole 06/16-06/24, azithromycin 06/17-06/24 - changed to meropenem 06/24 and plan ertapenem to complete 4 wk IV ABX per ID; end date 07/12; midline placed 06/24 - Legionella UAg negative, T-spot IGRA negative, TB PCR negative, AFB smear x3 negative, HIV negative; per ID yeast in sputum not significant unless Cryptococcus sp. - ID + Pulm consulted; unable to drain due to risk of pleural fistula; medical treatment with ABX recommedned - oxygen requirement unchanged in last several days; currently on 7L O2 Case discussed with Dr. Calloway, he recommended IV Diflucan started 07/08 and bronchoscopy on 07/11 - developed rash to meropenem therefore meropenem discontinued and patient placed on Levaquin iv 750mg on 07/05 drug rash likely due to meropenem - improving, s/p iv Solu Medrol hypoNa - resolved after fluid restriction, urea, and NaCl IV and tabs; Sodium 133 diarrhea - Cdiff + GI panel negative; diarrhea resolved likely due to antibiotics erythrocytosis - likely secondary to hypoxia from COPD; therapeutic phlebotomy per Heme-Onc due to increased risk of thrombosis; epo level normal;repeat hematocrit stable 49.3 GERD - PPI, Maalox tobacco abuse - NRT, counseling done VTE ppx - enoxaparin dispo - PT evaluation: IPR recommended, being followed daily by PT Quality Stroke Does the patient have a stroke diagnosis?: No VTE Prior VTE?: No VTE Risk Level:: Medical - moderate - high VTE Device Contraindication: Treatment Not Indicated VTE Drug Contraindication: N/A - Med Ordered
[2024-07-10] MEDS: Fluconazole in NaCl,Iso-Osm 400 MG/200 ML PIGGYBACK 100 MG IV (13:21)
[2024-07-10 15:21] VITALS: BP 110/81; PULSE 95; RESP 17; TEMP 36.4; O2SAT 92
[2024-07-10] MEDS: Enoxaparin Sodium 40 MG/0.4 ML SYRINGE SUBCUT (16:15)
[2024-07-10] MEDS: guaiFENesin 200 MG/10 ML 10 ML LIQUID PO (16:16)
[2024-07-10 19:14] VITALS: BP 117/66; PULSE 95; RESP 16; TEMP 36.4; O2SAT 92
[2024-07-11] VITALS (10 sets, daily range): BP systolic 101–126; BP diastolic 48–82; PULSE 88–110; RESP 16–22; TEMP 36.1–36.6; O2SAT 90–95
[2024-07-11] MEDS: guaiFENesin DM 200/20/10 ML 10 ML SYRUP PO (00:42)
[2024-07-11] MEDS: 0.9 % Sodium Chloride Flush 3 ML SYRINGE IVFLUSH ×4 (00:46→23:59)
[2024-07-11] MEDS: levoFLOXacin/D5W 750 MG/150 ML PIGGYBACK 100 MG IV (08:49)
--- NOTE | 2024-07-11 09:26 | MHC.SHP ---
Pre-Procedural Eval Section A - 24 Hr Update-Section A only Date of Service: 07/11/24 The patient is an INPATIENT: Yes Changes since office visit: Yes Patient answered all questions; No Cold of Flu in the past 2 weeks, No New Medical Problems and No Changes in Medication Section B - Complete if H&P > 30 days Chief Complaint: Pneumonia, pulmonary abscess Allergies: Allergies Allergy/AdvReac Type Severity Reaction Status Date / Time penicillin G Allergy Unknown unknown Verified 06/14/24 10:46 penicillin V Allergy Unknown unknown Verified 06/14/24 10:46 reaction Penicillins [PENICILLINS] Allergy Unknown UNKNOWN Verified 06/14/24 10:46 clindamycin Allergy Intermediate rash Uncoded 07/05/24 07:24 Plan Diagnosis/Plan: Unchanged I have reviewed the history and physical and performed a pertinent physical examination on my patient. No changes have occurred unless specified. Time Spent With Patient Time: Total time managing care of this patient today ____ minutes.
--- NOTE | 2024-07-11 10:07 | HO.ANESPROP2 ---
[facility] Active Problems Active Problems: All Active Problems Hyponatremia (Acute) Erythrocytosis due to hypoxemia (Chronic) Pneumonia (Acute) Acute hypoxic respiratory failure (Acute) Abscess of lung with pneumonia (Acute) Hypoxia (Acute) Acute respiratory disease (Acute) Wheezing on auscultation (Acute) Cough (Acute) Past Medical History Medical History Acute respiratory disease Wheezing on auscultation Cough Family History Family History Father Lung cancer Mother Unknown family medical history Family history of problems with anesthesia: No Surgical History History of Problems with Anesthesia: No Social History Social History Household Members: Family Household Members Other:: mother and disabled brother Housing: Apartment Do you presently have visiting nurse or other home services: Yes Alcohol intake: former Patient Tobacco Use Status: Former Tobacco user Tobacco use type: Cigarette e-Cigarette/Vaping Use: Never Used Second Hand Smoke Exposure: No service: No Meds Allergies Allergy/AdvReac Type Severity Reaction Status Date / Time penicillin G Allergy Unknown unknown Verified 06/14/24 10:46 penicillin V Allergy Unknown unknown Verified 06/14/24 10:46 reaction Penicillins [PENICILLINS] Allergy Unknown UNKNOWN Verified 06/14/24 10:46 clindamycin Allergy Intermediate rash Uncoded 07/05/24 07:24 Active Medications: Current Medications Acetaminophen (Acetaminophen 325 Mg Tablet) 650 mg PO Q6H PRN PRN Reason: Pain, Mild 1-3,fever,headache Al Hydroxide/Mg Hydroxide (Magnesium Hydrox/Alum Hydrox 30 Ml Oral.Susp) 30 ml PO Q6H PRN PRN Reason: heartburn Last Admin: 06/22/24 04:26 Dose: 30 ml Albuterol/Ipratropium (Albuterol/Iprat 2.5/0.5mg 3 Ml Ampul.Neb) 3 ml INHALE Q4H PRN PRN Reason: Wheezing Benzocaine (Throat Lozenge, Medicated Lozenge) 1 lozenge MUCOUS MEM Q2H PRN PRN Reason: Sore Throat Last Admin: 07/08/24 05:49 Dose: 1 lozenge Benzonatate (Benzonatate 100 Mg Capsule) 200 mg PO TID PRN PRN Reason: Cough Last Admin: 07/09/24 22:11 Dose: 200 mg Calcium Carbonate (Calcium Carbonate 750 Mg Tab.Chew) 750 mg PO Q4H PRN PRN Reason: Heartburn Last Admin: 06/22/24 09:47 Dose: 750 mg Heparin Sodium (Porcine) 50 (units/ Sodium Chloride 5 ml) 0 units IVFLUSH TID [facility] Last Admin: 07/10/24 20:05 Dose: 50 unit Diphenhydramine HCl (Diphenhydramine Hcl 25 Mg Capsule) 25 mg PO Q6H PRN PRN Reason: Rash Last Admin: 07/06/24 15:21 Dose: 25 mg Enoxaparin Sodium (Enoxaparin Sodium 40 Mg/0.4 Ml Syringe) 40 mg SUBCUT Q24H [facility] Last Admin: 07/10/24 16:15 Dose: 40 mg Guaifenesin (Guaifenesin 200 Mg/10 Ml 10 Ml Liquid) 10 ml PO Q6H PRN PRN Reason: Cough Last Admin: 07/10/24 16:16 Dose: 10 ml Guaifenesin/Dextromethorphan (Guaifenesin Dm 200/20/10 Ml 10 Ml Syrup) 10 ml PO QID PRN PRN Reason: Cough Last Admin: 07/11/24 00:42 Dose: 10 ml Levofloxacin (Levaquin) 750 mg in 150 mls @ 100 mls/hr IV Q24H [facility] Last Admin: 07/11/24 08:49 Dose: 100 mls/hr Fluconazole (Diflucan) 400 mg in 200 mls @ 100 mls/hr IV Q24H [facility] Last Infusion: 07/10/24 16:21 Dose: Infused Loperamide HCl (Loperamide Hcl 2 Mg Capsule) 4 mg PO Q4H PRN PRN Reason: Diarrhea Magnesium Hydroxide (Milk Of Magnesia 30 Ml Oral.Susp) 30 ml PO DAILY PRN PRN Reason: Constipation Melatonin (Melatonin 3 Mg Tablet) 6 mg PO BEDTIME PRN PRN Reason: Insomnia Nicotine Polacrilex (Nicotine Polacrilex Lozenge 2 Mg Lozenge) 2 mg BUCCAL Q2H PRN PRN Reason: Nicotine Cravings Omeprazole (Omeprazole 20 Mg Capsule.Dr) 20 mg PO BID@0630,1630 [facility] Last Admin: 07/11/24 06:52 Dose: Not Given Ondansetron HCl (Ondansetron Hcl 4 Mg/2 Ml Vial) 4 mg IVPUSH Q8H PRN PRN Reason: Nausea and Vomiting Last Admin: 06/22/24 19:52 Dose: 4 mg Sodium Chloride (0.9 % Sodium Chloride Flush 3 Ml Syringe) 3 ml IVFLUSH QSHIFT [facility] Last Admin: 07/11/24 08:49 Dose: 3 ml Home Medications ?Medication ?Instructions ?Recorded ?Confirmed ?Last Taken ?Type albuterol sulfate 90 mcg/actuation 2 puff inhalation Q6H PRN 06/14/24 06/14/24 Unknown History aerosol inhaler shortness of breath or wheezing ibuprofen 400 mg tablet 400 mg PO Q8H PRN Pain 06/14/24 06/14/24 Unknown History Exam Height,Weight and Vital Signs: Height 5 ft 10 in Weight 65.8 kg Last Vital Signs Temp 97.8 F 07/11/24 07:10 Pulse 89 07/11/24 07:10 Resp 16 07/11/24 07:10 BP 118/82 07/11/24 07:10 Pulse Ox 90 L 07/11/24 07:10 O2 Del Method Oxymask 07/11/24 07:10 O2 Flow Rate 7 07/11/24 07:10 Pertinent Lab Results Pertinent Lab Results: Laboratory Tests 06/14/24 06/14/24 06/14/24 11:04 11:10 11:20 WBC 12.2 H RBC 6.69 H Hgb 20.8 H Hct 60.5 H MCV 90.4 MCH 31.1 MCHC 34.4 RDW 13.5 Plt Count 283 MPV 9.4 Immature Gran % (Auto) 0.7 H Neut % (Auto) 72.5 Lymph % (Auto) 16.5 L [place] % (Auto) 7.5 Eos % (Auto) 2.0 Baso % (Auto) 0.8 Lymph # (Auto) 2.0 [place] # (Auto) 0.9 Eos # (Auto) 0.2 Baso # (Auto) 0.1 Abs Immat Gran (auto) 0.08 H Absolute Neuts (auto) 8.9 H Absolute Nucleated RBC 0.000 Nucleated RBC % (auto) 0.0 Smear Tech's Comments Smear Path Review SEE NOTE Hold Purple Top VBG pH 7.34 VBG pCO2 50 VBG pO2 40 VBG HCO3 27 H VBG O2 Saturation 62.0 VBG Base Excess 0.4 Sodium 140 Potassium 4.4 Chloride 103 Carbon Dioxide 25 Anion Gap 16 BUN 14 Creatinine 0.80 Estim Creat Clear Calc 91.3 Estimated GFR > 60 Random Glucose 102 Fasting Glucose Osmolality Lactic Acid 1.1 Calcium 9.5 Magnesium 1.9 Erythropoietin Total Bilirubin 0.8 Direct Bilirubin 0.3 AST 23 ALT 16 Alkaline Phosphatase 113 Troponin I High Sens 4.7 C-Reactive Protein 2.97 H B-Natriuretic Peptide 50 Total Protein 7.6 Albumin 3.9 Procalcitonin 0.07 TSH Free T4 Random Cortisol Urine Color Urine Appearance Urine pH Ur Specific [place] Urine Protein Urine Glucose (UA) Urine Ketones Urine Blood Urine Nitrite Ur Leukocyte Esterase Ur Random Sodium Urine Creatinine Nasal Screen MRSA (PCR) Nasal S. aureus Screen Nasal MRSA/S.aureus Interp Stl C. cayetanensis PCR Stool Rotavirus A PCR Stl Adenov F 40/41 PCR Stool Astrovirus (PCR) Stool Campylobacter PCR Stool Cryptosporidium PCR Stl Sh Tox Pr E STEC PCR Stool E coli O157 PCR Stl Enterotoxigenic E PCR Stool EPEC (PCR) Stool EAEC (PCR) Stl E. histolytica PCR Stool Giardia Lamblia PCR Stl P. shigelloides PCR Stool Salmonella PCR Stool Sapovirus (PCR) Stl Shigella/EIEC PCR St Y.enterocolitica PCR Stool Vibrio (PCR) Stl Vibrio cholerae PCR Stl Norovirus GI/GII PCR Random Vancomycin C. difficile Tox B Gene Hepatitis A IgM Ab Hep Bs Antigen Hep Bs Antibody Hep B Core Total Ab Hepatitis C Ab (EIA) HIV 1&2 Ab/P24 Ag 4thGn Influenza Type A (PCR) NEGATIVE Influenza Type B (PCR) NEGATIVE Ur L.pneumophila Ag M.tuberculosis DNA (PCR) MTB Rifampin Resis PCR RSV RNA Qual (PCR) NEGATIVE SARS-CoV-2 RNA (RT-PCR) NEGATIVE TB Test (T-Spot) Com TB Test Nil Control TB Test Panel A TB Test Panel B TB Test Positive Cntrl Pre Ther Phlebot Hgb Pre Ther Phlebot Hct Therapeutic Phlebotomy 06/15/24 06/15/24 06/15/24 06:00 07:14 15:21 WBC 15.1 H RBC 5.67 Hgb 17.3 Hct 52.2 H MCV 92.1 MCH 30.5 MCHC 33.1 RDW 13.2 Plt Count 236 MPV 9.6 Immature Gran % (Auto) 0.5 H Neut % (Auto) 79.8 H Lymph % (Auto) 12.0 L [place] % (Auto) 6.8 Eos % (Auto) 0.4 Baso % (Auto) 0.5 Lymph # (Auto) 1.8 [place] # (Auto) 1.0 Eos # (Auto) 0.1 Baso # (Auto) 0.1 Abs Immat Gran (auto) 0.07 H Absolute Neuts (auto) 12.1 H Absolute Nucleated RBC 0.000 Nucleated RBC % (auto) 0.0 Smear Tech's Comments Smear Path Review Hold Purple Top VBG pH VBG pCO2 VBG pO2 VBG HCO3 VBG O2 Saturation VBG Base Excess Sodium Potassium Chloride Carbon Dioxide Anion Gap BUN Creatinine 0.64 Estim Creat Clear Calc 114.2 Estimated GFR > 60 Random Glucose Fasting Glucose Osmolality Lactic Acid Calcium Magnesium Erythropoietin Total Bilirubin Direct Bilirubin AST ALT Alkaline Phosphatase Troponin I High Sens C-Reactive Protein B-Natriuretic Peptide Total Protein Albumin Procalcitonin TSH Free T4 Random Cortisol Urine Color Yellow Urine Appearance Clear Urine pH 5.5 Ur Specific [place] >= 1.030 H Urine Protein Negative Urine Glucose (UA) Negative Urine Ketones Negative Urine Blood Negative Urine Nitrite Negative Ur Leukocyte Esterase Negative Ur Random Sodium Urine Creatinine Nasal Screen MRSA (PCR) Nasal S. aureus Screen Nasal MRSA/S.aureus Interp Stl C. cayetanensis PCR Stool Rotavirus A PCR Stl Adenov F 40/41 PCR Stool Astrovirus (PCR) Stool Campylobacter PCR Stool Cryptosporidium PCR Stl Sh Tox Pr E STEC PCR Stool E coli O157 PCR Stl Enterotoxigenic E PCR Stool EPEC (PCR) Stool EAEC (PCR) Stl E. histolytica PCR Stool Giardia Lamblia PCR Stl P. shigelloides PCR Stool Salmonella PCR Stool Sapovirus (PCR) Stl Shigella/EIEC PCR St Y.enterocolitica PCR Stool Vibrio (PCR) Stl Vibrio cholerae PCR Stl Norovirus GI/GII PCR Random Vancomycin 11.2 L C. difficile Tox B Gene Hepatitis A IgM Ab Nonreactive Hep Bs Antigen Negative Hep Bs Antibody NONREACTIVE Hep B Core Total Ab Nonreactive Hepatitis C Ab (EIA) Nonreactive HIV 1&2 Ab/P24 Ag 4thGn Nonreactive Influenza Type A (PCR) Influenza Type B (PCR) Ur L.pneumophila Ag M.tuberculosis DNA (PCR) MTB Rifampin Resis PCR RSV RNA Qual (PCR) SARS-CoV-2 RNA (RT-PCR) TB Test (T-Spot) Com TB Test Nil Control TB Test Panel A TB Test Panel B TB Test Positive Cntrl Pre Ther Phlebot Hgb Pre Ther Phlebot Hct Therapeutic Phlebotomy 06/16/24 06/16/24 06/16/24 06:26 10:18 10:25 WBC RBC Hgb Hct MCV MCH MCHC RDW Plt Count MPV Immature Gran % (Auto) Neut % (Auto) Lymph % (Auto) [place] % (Auto) Eos % (Auto) Baso % (Auto) Lymph # (Auto) [place] # (Auto) Eos # (Auto) Baso # (Auto) Abs Immat Gran (auto) Absolute Neuts (auto) Absolute Nucleated RBC Nucleated RBC % (auto) Smear Tech's Comments Smear Path Review Hold Purple Top SEE NOTE VBG pH VBG pCO2 VBG pO2 VBG HCO3 VBG O2 Saturation VBG Base Excess Sodium Potassium Chloride Carbon Dioxide Anion Gap BUN Creatinine 0.72 Estim Creat Clear Calc 101.5 Estimated GFR > 60 Random Glucose Fasting Glucose Osmolality Lactic Acid Calcium Magnesium Erythropoietin Total Bilirubin Direct Bilirubin AST ALT Alkaline Phosphatase Troponin I High Sens C-Reactive Protein B-Natriuretic Peptide Total Protein Albumin Procalcitonin TSH Free T4 Random Cortisol Urine Color Urine Appearance Urine pH Ur Specific [place] Urine Protein Urine Glucose (UA) Urine Ketones Urine Blood Urine Nitrite Ur Leukocyte Esterase Ur Random Sodium Urine Creatinine Nasal Screen MRSA (PCR) Nasal S. aureus Screen Nasal MRSA/S.aureus Interp Stl C. cayetanensis PCR Stool Rotavirus A PCR Stl Adenov F 40/41 PCR Stool Astrovirus (PCR) Stool Campylobacter PCR Stool Cryptosporidium PCR Stl Sh Tox Pr E STEC PCR Stool E coli O157 PCR Stl Enterotoxigenic E PCR Stool EPEC (PCR) Stool EAEC (PCR) Stl E. histolytica PCR Stool Giardia Lamblia PCR Stl P. shigelloides PCR Stool Salmonella PCR Stool Sapovirus (PCR) Stl Shigella/EIEC PCR St Y.enterocolitica PCR Stool Vibrio (PCR) Stl Vibrio cholerae PCR Stl Norovirus GI/GII PCR Random Vancomycin C. difficile Tox B Gene Hepatitis A IgM Ab Hep Bs Antigen Hep Bs Antibody Hep B Core Total Ab Hepatitis C Ab (EIA) HIV 1&2 Ab/P24 Ag 4thGn Influenza Type A (PCR) Influenza Type B (PCR) Ur L.pneumophila Ag M.tuberculosis DNA (PCR) NOT DETECTED MTB Rifampin Resis PCR NOT TESTED RSV RNA Qual (PCR) SARS-CoV-2 RNA (RT-PCR) TB Test (T-Spot) Com Negative TB Test Nil Control Passed TB Test Panel A 0 TB Test Panel B 0 TB Test Positive Cntrl Passed Pre Ther Phlebot Hgb Pre Ther Phlebot Hct Therapeutic Phlebotomy 06/16/24 06/17/24 06/17/24 15:11 05:56 07:20 WBC 11.3 H RBC 6.11 H Hgb 18.6 H Hct 56.8 H MCV 93.0 MCH 30.4 MCHC 32.7 RDW 13.5 Plt Count 258 MPV 9.1 L Immature Gran % (Auto) 0.6 H Neut % (Auto) 73.6 H Lymph % (Auto) 15.3 L [place] % (Auto) 7.1 Eos % (Auto) 2.7 Baso % (Auto) 0.7 Lymph # (Auto) 1.7 [place] # (Auto) 0.8 Eos # (Auto) 0.3 Baso # (Auto) 0.1 Abs Immat Gran (auto) 0.07 H Absolute Neuts (auto) 8.3 Absolute Nucleated RBC 0.000 Nucleated RBC % (auto) 0.0 Smear Tech's Comments Smear Path Review Hold Purple Top VBG pH VBG pCO2 VBG pO2 VBG HCO3 VBG O2 Saturation VBG Base Excess Sodium 140 Potassium 4.1 Chloride 107 Carbon Dioxide 25 Anion Gap 12 BUN 12 Creatinine 0.72 Estim Creat Clear Calc 101.5 Estimated GFR > 60 Random Glucose 89 Fasting Glucose Osmolality Lactic Acid Calcium 8.7 D Magnesium Erythropoietin Total Bilirubin Direct Bilirubin AST ALT Alkaline Phosphatase Troponin I High Sens C-Reactive Protein B-Natriuretic Peptide Total Protein Albumin Procalcitonin TSH Free T4 Random Cortisol Urine Color Urine Appearance Urine pH Ur Specific [place] Urine Protein Urine Glucose (UA) Urine Ketones Urine Blood Urine Nitrite Ur Leukocyte Esterase Ur Random Sodium Urine Creatinine Nasal Screen MRSA (PCR) NEGATIVE Nasal S. aureus Screen NEGATIVE Nasal MRSA/S.aureus Interp SEE NOTE Stl C. cayetanensis PCR Stool Rotavirus A PCR Stl Adenov F 40/41 PCR Stool Astrovirus (PCR) Stool Campylobacter PCR Stool Cryptosporidium PCR Stl Sh Tox Pr E STEC PCR Stool E coli O157 PCR Stl Enterotoxigenic E PCR Stool EPEC (PCR) Stool EAEC (PCR) Stl E. histolytica PCR Stool Giardia Lamblia PCR Stl P. shigelloides PCR Stool Salmonella PCR Stool Sapovirus (PCR) Stl Shigella/EIEC PCR St Y.enterocolitica PCR Stool Vibrio (PCR) Stl Vibrio cholerae PCR Stl Norovirus GI/GII PCR Random Vancomycin 19.8 C. difficile Tox B Gene Hepatitis A IgM Ab Hep Bs Antigen Hep Bs Antibody Hep B Core Total Ab Hepatitis C Ab (EIA) HIV 1&2 Ab/P24 Ag 4thGn Influenza Type A (PCR) Influenza Type B (PCR) Ur L.pneumophila Ag M.tuberculosis DNA (PCR) MTB Rifampin Resis PCR RSV RNA Qual (PCR) SARS-CoV-2 RNA (RT-PCR) TB Test (T-Spot) Com TB Test Nil Control TB Test Panel A TB Test Panel B TB Test Positive Cntrl Pre Ther Phlebot Hgb Pre Ther Phlebot Hct Therapeutic Phlebotomy 06/17/24 06/17/24 06/18/24 11:06 14:57 05:57 WBC RBC Hgb Hct MCV MCH MCHC RDW Plt Count MPV Immature Gran % (Auto) Neut % (Auto) Lymph % (Auto) [place] % (Auto) Eos % (Auto) Baso % (Auto) Lymph # (Auto) [place] # (Auto) Eos # (Auto) Baso # (Auto) Abs Immat Gran (auto) Absolute Neuts (auto) Absolute Nucleated RBC Nucleated RBC % (auto) Smear Tech's Comments Smear Path Review Hold Purple Top VBG pH VBG pCO2 VBG pO2 VBG HCO3 VBG O2 Saturation VBG Base Excess Sodium Potassium Chloride Carbon Dioxide Anion Gap BUN Creatinine 0.70 Estim Creat Clear Calc 104.4 Estimated GFR > 60 Random Glucose Fasting Glucose Osmolality Lactic Acid Calcium Magnesium Erythropoietin Total Bilirubin Direct Bilirubin AST ALT Alkaline Phosphatase Troponin I High Sens C-Reactive Protein B-Natriuretic Peptide Total Protein Albumin Procalcitonin TSH Free T4 Random Cortisol Urine Color Urine Appearance Urine pH Ur Specific [place] Urine Protein Urine Glucose (UA) Urine Ketones Urine Blood Urine Nitrite Ur Leukocyte Esterase Ur Random Sodium Urine Creatinine Nasal Screen MRSA (PCR) Nasal S. aureus Screen Nasal MRSA/S.aureus Interp Stl C. cayetanensis PCR Stool Rotavirus A PCR Stl Adenov F 40 PCR Stool Astrovirus (PCR) Stool Campylobacter PCR Stool Cryptosporidium PCR Stl Sh Tox Pr E STEC PCR Stool E coli O157 PCR Stl Enterotoxigenic E PCR Stool EPEC (PCR) Stool EAEC (PCR) Stl E. histolytica PCR Stool Giardia Lamblia PCR Stl P. shigelloides PCR Stool Salmonella PCR Stool Sapovirus (PCR) Stl Shigella/EIEC PCR St Y.enterocolitica PCR Stool Vibrio (PCR) Stl Vibrio cholerae PCR Stl Norovirus GI/GII PCR Random Vancomycin 14.8 L C. difficile Tox B Gene Hepatitis A IgM Ab Hep Bs Antigen Hep Bs Antibody Hep B Core Total Ab Hepatitis C Ab (EIA) HIV 1&2 Ab/P24 Ag 4thGn Influenza Type A (PCR) Influenza Type B (PCR) Ur L.pneumophila Ag Not Detected M.tuberculosis DNA (PCR) MTB Rifampin Resis PCR RSV RNA Qual (PCR) SARS-CoV-2 RNA (RT-PCR) TB Test (T-Spot) Com TB Test Nil Control TB Test Panel A TB Test Panel B TB Test Positive Cntrl Pre Ther Phlebot Hgb Pre Ther Phlebot Hct Therapeutic Phlebotomy 06/19/24 06/19/24 06/22/24 05:40 14:12 09:13 WBC 13.7 H 11.7 H RBC 6.39 H 6.32 H Hgb 19.3 H 19.4 H Hct 59.0 H 57.7 H MCV 92.3 91.3 MCH 30.2 30.7 MCHC 32.7 33.6 RDW 13.5 12.9 Plt Count 248 260 MPV 9.0 L 9.5 Immature Gran % (Auto) 0.6 H Neut % (Auto) 81.2 H Lymph % (Auto) 8.7 L [place] % (Auto) 6.8 Eos % (Auto) 1.9 Baso % (Auto) 0.8 Lymph # (Auto) 1.2 [place] # (Auto) 0.9 Eos # (Auto) 0.3 Baso # (Auto) 0.1 Abs Immat Gran (auto) 0.08 H Absolute Neuts (auto) 11.1 H Absolute Nucleated RBC 0.000 0.000 Nucleated RBC % (auto) 0.0 0.0 Smear Tech's Comments Smear Path Review Hold Purple Top VBG pH VBG pCO2 VBG pO2 VBG HCO3 VBG O2 Saturation VBG Base Excess Sodium 137 136 Potassium 4.0 3.7 Chloride 104 100 Carbon Dioxide 22 24 Anion Gap 15 16 BUN 12 12 Creatinine 0.74 0.79 Estim Creat Clear Calc 98.7 92.5 Estimated GFR > 60 > 60 Random Glucose 107 107 Fasting Glucose Osmolality Lactic Acid Calcium 9.3 D 9.0 Magnesium Erythropoietin 4.3 Total Bilirubin Direct Bilirubin AST ALT Alkaline Phosphatase Troponin I High Sens C-Reactive Protein B-Natriuretic Peptide Total Protein Albumin Procalcitonin 0.15 TSH Free T4 Random Cortisol Urine Color Urine Appearance Urine pH Ur Specific [place] Urine Protein Urine Glucose (UA) Urine Ketones Urine Blood Urine Nitrite Ur Leukocyte Esterase Ur Random Sodium Urine Creatinine Nasal Screen MRSA (PCR) Nasal S. aureus Screen Nasal MRSA/S.aureus Interp Stl C. cayetanensis PCR Stool Rotavirus A PCR Stl Adenov F 40/41 PCR Stool Astrovirus (PCR) Stool Campylobacter PCR Stool Cryptosporidium PCR Stl Sh Tox Pr E STEC PCR Stool E coli O157 PCR Stl Enterotoxigenic E PCR Stool EPEC (PCR) Stool EAEC (PCR) Stl E. histolytica PCR Stool Giardia Lamblia PCR Stl P. shigelloides PCR Stool Salmonella PCR Stool Sapovirus (PCR) Stl Shigella/EIEC PCR St Y.enterocolitica PCR Stool Vibrio (PCR) Stl Vibrio cholerae PCR Stl Norovirus GI/GII PCR Random Vancomycin C. difficile Tox B Gene Hepatitis A IgM Ab Hep Bs Antigen Hep Bs Antibody Hep B Core Total Ab Hepatitis C Ab (EIA) HIV 1&2 Ab/P24 Ag 4thGn Influenza Type A (PCR) Influenza Type B (PCR) Ur L.pneumophila Ag M.tuberculosis DNA (PCR) MTB Rifampin Resis PCR RSV RNA Qual (PCR) SARS-CoV-2 RNA (RT-PCR) TB Test (T-Spot) Com TB Test Nil Control TB Test Panel A TB Test Panel B TB Test Positive Cntrl Pre Ther Phlebot Hgb Pre Ther Phlebot Hct Therapeutic Phlebotomy 06/23/24 06/24/24 06/26/24 09:00 07:06 05:56 WBC 12.6 H 13.2 H RBC 6.05 H 6.12 H Hgb 18.3 H 18.4 H Hct 54.4 H 53.6 H MCV 89.9 87.6 MCH 30.2 30.1 MCHC 33.6 34.3 RDW 12.7 12.6 Plt Count 274 354 D MPV 9.6 9.6 Immature Gran % (Auto) Neut % (Auto) Lymph % (Auto) [place] % (Auto) Eos % (Auto) Baso % (Auto) Lymph # (Auto) [place] # (Auto) Eos # (Auto) Baso # (Auto) Abs Immat Gran (auto) Absolute Neuts (auto) Absolute Nucleated RBC 0.000 0.000 Nucleated RBC % (auto) 0.0 0.0 Smear Tech's Comments Smear Path Review Hold Purple Top VBG pH VBG pCO2 VBG pO2 VBG HCO3 VBG O2 Saturation VBG Base Excess Sodium 132 L 129 L Potassium 4.0 3.5 Chloride 98 93 L Carbon Dioxide 24 25 Anion Gap 14 15 BUN 18 H 17 H Creatinine 0.78 0.79 Estim Creat Clear Calc 93.7 92.5 Estimated GFR > 60 > 60 Random Glucose 103 101 Fasting Glucose Osmolality Lactic Acid Calcium 9.4 9.5 Magnesium Erythropoietin Total Bilirubin 0.5 Direct Bilirubin AST 16 ALT 14 Alkaline Phosphatase 73 Troponin I High Sens C-Reactive Protein B-Natriuretic Peptide Total Protein 6.9 Albumin 3.6 Procalcitonin 0.27 0.13 TSH Free T4 Random Cortisol Urine Color Urine Appearance Urine pH Ur Specific [place] Urine Protein Urine Glucose (UA) Urine Ketones Urine Blood Urine Nitrite Ur Leukocyte Esterase Ur Random Sodium Urine Creatinine Nasal Screen MRSA (PCR) Nasal S. aureus Screen Nasal MRSA/S.aureus Interp Stl C. cayetanensis PCR Stool Rotavirus A PCR Stl Adenov F 40/41 PCR Stool Astrovirus (PCR) Stool Campylobacter PCR Stool Cryptosporidium PCR Stl Sh Tox Pr E STEC PCR Stool E coli O157 PCR Stl Enterotoxigenic E PCR Stool EPEC (PCR) Stool EAEC (PCR) Stl E. histolytica PCR Stool Giardia Lamblia PCR Stl P. shigelloides PCR Stool Salmonella PCR Stool Sapovirus (PCR) Stl Shigella/EIEC PCR St Y.enterocolitica PCR Stool Vibrio (PCR) Stl Vibrio cholerae PCR Stl Norovirus GI/GII PCR Random Vancomycin C. difficile Tox B Gene Hepatitis A IgM Ab Hep Bs Antigen Hep Bs Antibody Hep B Core Total Ab Hepatitis C Ab (EIA) HIV 1&2 Ab/P24 Ag 4thGn Influenza Type A (PCR) Influenza Type B (PCR) Ur L.pneumophila Ag M.tuberculosis DNA (PCR) MTB Rifampin Resis PCR RSV RNA Qual (PCR) SARS-CoV-2 RNA (RT-PCR) TB Test (T-Spot) Com TB Test Nil Control TB Test Panel A TB Test Panel B TB Test Positive Cntrl Pre Ther Phlebot Hgb TNP Pre Ther Phlebot Hct TNP Therapeutic Phlebotomy Phlebotomy Performed 06/27/24 06/28/24 06/29/24 05:37 09:22 05:09 WBC 13.8 H 14.7 H 13.5 H RBC 6.26 H 6.35 H 6.41 H Hgb 19.2 H 19.4 H 19.3 H Hct 53.8 H 55.2 H 54.9 H MCV 85.9 86.9 85.6 MCH 30.7 30.6 30.1 MCHC 35.7 35.1 35.2 RDW 12.5 12.5 12.4 Plt Count 352 411 H 403 H MPV 9.7 9.2 L 9.5 Immature Gran % (Auto) 3.1 H 2.2 H 2.2 H Neut % (Auto) 73.8 H 73.5 H 72.7 Lymph % (Auto) 12.9 L 14.0 L 14.3 L [place] % (Auto) 7.3 7.6 8.0 Eos % (Auto) 2.0 1.7 1.9 Baso % (Auto) 0.9 1.0 0.9 Lymph # (Auto) 1.8 2.1 1.9 [place] # (Auto) 1.0 1.1 1.1 Eos # (Auto) 0.3 0.3 0.3 Baso # (Auto) 0.1 0.2 0.1 Abs Immat Gran (auto) 0.43 H 0.32 H 0.30 H Absolute Neuts (auto) 10.1 H 10.8 H 9.8 H Absolute Nucleated RBC 0.000 0.000 0.000 Nucleated RBC % (auto) 0.0 0.0 0.0 Smear Tech's Comments Smear Path Review Hold Purple Top VBG pH VBG pCO2 VBG pO2 VBG HCO3 VBG O2 Saturation VBG Base Excess Sodium 128 L 125 L 124 L Potassium 3.5 4.2 4.4 Chloride 89 L 89 L 85 L Carbon Dioxide 28 24 26 Anion Gap 15 16 17 BUN 17 H 19 H 17 H Creatinine 0.71 0.72 0.73 Estim Creat Clear Calc 102.9 101.5 100.1 Estimated GFR > 60 > 60 > 60 Random Glucose Fasting Glucose 101 H 117 H 107 H Osmolality 260 L Lactic Acid Calcium 9.7 9.5 9.5 Magnesium Erythropoietin Total Bilirubin 0.5 0.6 0.6 Direct Bilirubin AST 20 21 25 ALT 20 18 17 Alkaline Phosphatase 84 90 90 Troponin I High Sens C-Reactive Protein B-Natriuretic Peptide Total Protein 7.2 7.4 7.5 Albumin 3.7 3.8 3.7 Procalcitonin TSH Free T4 Random Cortisol Urine Color Urine Appearance Urine pH Ur Specific [place] Urine Protein Urine Glucose (UA) Urine Ketones Urine Blood Urine Nitrite Ur Leukocyte Esterase Ur Random Sodium Urine Creatinine Nasal Screen MRSA (PCR) Nasal S. aureus Screen Nasal MRSA/S.aureus Interp Stl C. cayetanensis PCR Stool Rotavirus A PCR Stl Adenov F 40/ PCR Stool Astrovirus (PCR) Stool Campylobacter PCR Stool Cryptosporidium PCR Stl Sh Tox Pr E STEC PCR Stool E coli O157 PCR Stl Enterotoxigenic E PCR Stool EPEC (PCR) Stool EAEC (PCR) Stl E. histolytica PCR Stool Giardia Lamblia PCR Stl P. shigelloides PCR Stool Salmonella PCR Stool Sapovirus (PCR) Stl Shigella/EIEC PCR St Y.enterocolitica PCR Stool Vibrio (PCR) Stl Vibrio cholerae PCR Stl Norovirus GI/GII PCR Random Vancomycin C. difficile Tox B Gene Hepatitis A IgM Ab Hep Bs Antigen Hep Bs Antibody Hep B Core Total Ab Hepatitis C Ab (EIA) HIV 1&2 Ab/P24 Ag 4thGn Influenza Type A (PCR) Influenza Type B (PCR) Ur L.pneumophila Ag M.tuberculosis DNA (PCR) MTB Rifampin Resis PCR RSV RNA Qual (PCR) SARS-CoV-2 RNA (RT-PCR) TB Test (T-Spot) Com TB Test Nil Control TB Test Panel A TB Test Panel B TB Test Positive Cntrl Pre Ther Phlebot Hgb Pre Ther Phlebot Hct Therapeutic Phlebotomy 06/29/24 06/30/24 07/01/24 15:15 05:34 05:17 WBC 14.1 H 16.3 H RBC 6.39 H 6.27 H Hgb 19.2 H 18.9 H Hct 54.4 H 54.0 H MCV 85.1 86.1 MCH 30.0 30.1 MCHC 35.3 35.0 RDW 12.2 12.3 Plt Count 402 H 384 MPV 9.0 L 9.4 Immature Gran % (Auto) 2.0 H 1.8 H Neut % (Auto) 74.7 H 74.9 H Lymph % (Auto) 13.7 L 13.5 L [place] % (Auto) 7.3 7.5 Eos % (Auto) 1.4 1.4 Baso % (Auto) 0.9 0.9 Lymph # (Auto) 1.9 2.2 [place] # (Auto) 1.0 1.2 Eos # (Auto) 0.2 0.2 Baso # (Auto) 0.1 0.2 Abs Immat Gran (auto) 0.28 H 0.29 H Absolute Neuts (auto) 10.5 H 12.2 H Absolute Nucleated RBC 0.000 0.000 Nucleated RBC % (auto) 0.0 0.0 Smear Tech's Comments Smear Path Review Hold Purple Top VBG pH VBG pCO2 VBG pO2 VBG HCO3 VBG O2 Saturation VBG Base Excess Sodium 124 L 124 L Potassium 4.2 4.5 Chloride 83 L 86 L Carbon Dioxide 27 27 Anion Gap 18 16 BUN 21 H 25 H Creatinine 0.73 0.72 Estim Creat Clear Calc 100.1 101.5 Estimated GFR > 60 > 60 Random Glucose Fasting Glucose 127 H 116 H Osmolality Lactic Acid Calcium 9.7 9.5 Magnesium Erythropoietin Total Bilirubin 0.6 0.5 Direct Bilirubin AST 21 20 ALT 19 24 Alkaline Phosphatase 95 112 Troponin I High Sens C-Reactive Protein B-Natriuretic Peptide Total Protein 7.0 6.7 Albumin 3.7 3.8 Procalcitonin TSH 4.05 H Free T4 1.28 Random Cortisol 20.8 Urine Color Urine Appearance Urine pH Ur Specific [place] Urine Protein Urine Glucose (UA) Urine Ketones Urine Blood Urine Nitrite Ur Leukocyte Esterase Ur Random Sodium < 20.0 Urine Creatinine 93.68 Nasal Screen MRSA (PCR) Nasal S. aureus Screen Nasal MRSA/S.aureus Interp Stl C. cayetanensis PCR Stool Rotavirus A PCR Stl Adenov F 40/41 PCR Stool Astrovirus (PCR) Stool Campylobacter PCR Stool Cryptosporidium PCR Stl Sh Tox Pr E STEC PCR Stool E coli O157 PCR Stl Enterotoxigenic E PCR Stool EPEC (PCR) Stool EAEC (PCR) Stl E. histolytica PCR Stool Giardia Lamblia PCR Stl P. shigelloides PCR Stool Salmonella PCR Stool Sapovirus (PCR) Stl Shigella/EIEC PCR St Y.enterocolitica PCR Stool Vibrio (PCR) Stl Vibrio cholerae PCR Stl Norovirus GI/GII PCR Random Vancomycin C. difficile Tox B Gene Hepatitis A IgM Ab Hep Bs Antigen Hep Bs Antibody Hep B Core Total Ab Hepatitis C Ab (EIA) HIV 1&2 Ab/P24 Ag 4thGn Influenza Type A (PCR) Influenza Type B (PCR) Ur L.pneumophila Ag M.tuberculosis DNA (PCR) MTB Rifampin Resis PCR RSV RNA Qual (PCR) SARS-CoV-2 RNA (RT-PCR) TB Test (T-Spot) Com TB Test Nil Control TB Test Panel A TB Test Panel B TB Test Positive Cntrl Pre Ther Phlebot Hgb Pre Ther Phlebot Hct Therapeutic Phlebotomy 07/02/24 07/03/24 07/04/24 05:22 06:32 05:28 WBC RBC Hgb Hct MCV MCH MCHC RDW Plt Count MPV Immature Gran % (Auto) Neut % (Auto) Lymph % (Auto) [place] % (Auto) Eos % (Auto) Baso % (Auto) Lymph # (Auto) [place] # (Auto) Eos # (Auto) Baso # (Auto) Abs Immat Gran (auto) Absolute Neuts (auto) Absolute Nucleated RBC Nucleated RBC % (auto) Smear Tech's Comments Smear Path Review Hold Purple Top SEE NOTE SEE NOTE SEE NOTE VBG pH VBG pCO2 VBG pO2 VBG HCO3 VBG O2 Saturation VBG Base Excess Sodium 128 L 129 L 135 Potassium 5.0 4.6 4.0 Chloride 90 L 92 L 94 L Carbon Dioxide 28 27 30 H Anion Gap 15 15 15 BUN 18 H 55 H 32 H Creatinine 0.67 0.69 0.66 Estim Creat Clear Calc 109.1 105.9 110.7 Estimated GFR > 60 > 60 > 60 Random Glucose 97 114 88 Fasting Glucose Osmolality Lactic Acid Calcium 8.9 D 9.5 D 9.7 Magnesium Erythropoietin Total Bilirubin Direct Bilirubin AST ALT Alkaline Phosphatase Troponin I High Sens C-Reactive Protein B-Natriuretic Peptide Total Protein Albumin Procalcitonin TSH Free T4 Random Cortisol Urine Color Urine Appearance Urine pH Ur Specific [place] Urine Protein Urine Glucose (UA) Urine Ketones Urine Blood Urine Nitrite Ur Leukocyte Esterase Ur Random Sodium Urine Creatinine Nasal Screen MRSA (PCR) Nasal S. aureus Screen Nasal MRSA/S.aureus Interp Stl C. cayetanensis PCR Stool Rotavirus A PCR Stl Adenov F 40/ PCR Stool Astrovirus (PCR) Stool Campylobacter PCR Stool Cryptosporidium PCR Stl Sh Tox Pr E STEC PCR Stool E coli O157 PCR Stl Enterotoxigenic E PCR Stool EPEC (PCR) Stool EAEC (PCR) Stl E. histolytica PCR Stool Giardia Lamblia PCR Stl P. shigelloides PCR Stool Salmonella PCR Stool Sapovirus (PCR) Stl Shigella/EIEC PCR St Y.enterocolitica PCR Stool Vibrio (PCR) Stl Vibrio cholerae PCR Stl Norovirus GI/GII PCR Random Vancomycin C. difficile Tox B Gene Hepatitis A IgM Ab Hep Bs Antigen Hep Bs Antibody Hep B Core Total Ab Hepatitis C Ab (EIA) HIV 1&2 Ab/P24 Ag 4thGn Influenza Type A (PCR) Influenza Type B (PCR) Ur L.pneumophila Ag M.tuberculosis DNA (PCR) MTB Rifampin Resis PCR RSV RNA Qual (PCR) SARS-CoV-2 RNA (RT-PCR) TB Test (T-Spot) Com TB Test Nil Control TB Test Panel A TB Test Panel B TB Test Positive Cntrl Pre Ther Phlebot Hgb Pre Ther Phlebot Hct Therapeutic Phlebotomy 07/05/24 07/05/24 07/05/24 05:39 07:22 09:19 WBC RBC Hgb Hct MCV MCH MCHC RDW Plt Count MPV Immature Gran % (Auto) Neut % (Auto) Lymph % (Auto) [place] % (Auto) Eos % (Auto) Baso % (Auto) Lymph # (Auto) [place] # (Auto) Eos # (Auto) Baso # (Auto) Abs Immat Gran (auto) Absolute Neuts (auto) Absolute Nucleated RBC Nucleated RBC % (auto) Smear Tech's Comments Smear Path Review Hold Purple Top SEE NOTE SEE NOTE VBG pH VBG pCO2 VBG pO2 VBG HCO3 VBG O2 Saturation VBG Base Excess Sodium 131 L 131 L Potassium 4.3 4.5 Chloride 91 L 94 L Carbon Dioxide 29 29 Anion Gap 15 13 BUN 25 H 25 H Creatinine 0.67 0.69 Estim Creat Clear Calc 109.1 105.9 Estimated GFR > 60 > 60 Random Glucose 103 109 Fasting Glucose Osmolality Lactic Acid Calcium 9.7 9.4 Magnesium Erythropoietin Total Bilirubin Direct Bilirubin AST ALT Alkaline Phosphatase Troponin I High Sens C-Reactive Protein B-Natriuretic Peptide Total Protein Albumin Procalcitonin TSH Free T4 Random Cortisol Urine Color Urine Appearance Urine pH Ur Specific [place] Urine Protein Urine Glucose (UA) Urine Ketones Urine Blood Urine Nitrite Ur Leukocyte Esterase Ur Random Sodium Urine Creatinine Nasal Screen MRSA (PCR) Nasal S. aureus Screen Nasal MRSA/S.aureus Interp Stl C. cayetanensis PCR Not Detected Stool Rotavirus A PCR Not Detected Stl Adenov F 40/41 PCR Not Detected Stool Astrovirus (PCR) Not Detected Stool Campylobacter PCR Not Detected Stool Cryptosporidium PCR Not Detected Stl Sh Tox Pr E STEC PCR Not Detected Stool E coli O157 PCR Not applicable Stl Enterotoxigenic E PCR Not Detected Stool EPEC (PCR) Not Detected Stool EAEC (PCR) Not Detected Stl E. histolytica PCR Not Detected Stool Giardia Lamblia PCR Not Detected Stl P. shigelloides PCR Not Detected Stool Salmonella PCR Not Detected Stool Sapovirus (PCR) Not Detected Stl Shigella/EIEC PCR Not Detected St Y.enterocolitica PCR Not Detected Stool Vibrio (PCR) Not Detected Stl Vibrio cholerae PCR Not Detected Stl Norovirus GI/GII PCR Not Detected Random Vancomycin C. difficile Tox B Gene NEGATIVE Hepatitis A IgM Ab Hep Bs Antigen Hep Bs Antibody Hep B Core Total Ab Hepatitis C Ab (EIA) HIV 1&2 Ab/P24 Ag 4thGn Influenza Type A (PCR) Influenza Type B (PCR) Ur L.pneumophila Ag M.tuberculosis DNA (PCR) MTB Rifampin Resis PCR RSV RNA Qual (PCR) SARS-CoV-2 RNA (RT-PCR) TB Test (T-Spot) Com TB Test Nil Control TB Test Panel A TB Test Panel B TB Test Positive Cntrl Pre Ther Phlebot Hgb Pre Ther Phlebot Hct Therapeutic Phlebotomy 07/06/24 07/07/24 07:15 05:57 WBC 17.8 H 16.1 H RBC 5.65 5.53 Hgb 17.2 16.9 Hct 50.7 49.3 MCV 89.7 89.2 MCH 30.4 30.6 MCHC 33.9 34.3 RDW 12.8 12.7 Plt Count 344 319 MPV 9.4 9.0 L Immature Gran % (Auto) 0.8 H Neut % (Auto) 90.6 H Lymph % (Auto) 5.4 L [place] % (Auto) 3.0 Eos % (Auto) 0.1 Baso % (Auto) 0.1 Lymph # (Auto) 0.9 L [place] # (Auto) 0.5 Eos # (Auto) 0.0 Baso # (Auto) 0.0 Abs Immat Gran (auto) 0.13 H Absolute Neuts (auto) 14.5 H Absolute Nucleated RBC 0.000 0.000 Nucleated RBC % (auto) 0.0 0.0 Smear Tech's Comments VERIFIED Smear Path Review Hold Purple Top VBG pH VBG pCO2 VBG pO2 VBG HCO3 VBG O2 Saturation VBG Base Excess Sodium 133 L Potassium 4.4 Chloride 94 L Carbon Dioxide 28 Anion Gap 15 BUN 18 H Creatinine 0.68 Estim Creat Clear Calc 107.5 Estimated GFR > 60 Random Glucose Fasting Glucose 122 H Osmolality Lactic Acid Calcium 9.7 Magnesium Erythropoietin Total Bilirubin 0.3 Direct Bilirubin AST 23 ALT 41 H Alkaline Phosphatase 125 H Troponin I High Sens C-Reactive Protein B-Natriuretic Peptide Total Protein 6.5 Albumin 3.5 Procalcitonin TSH Free T4 Random Cortisol Urine Color Urine Appearance Urine pH Ur Specific [place] Urine Protein Urine Glucose (UA) Urine Ketones Urine Blood Urine Nitrite Ur Leukocyte Esterase Ur Random Sodium Urine Creatinine Nasal Screen MRSA (PCR) Nasal S. aureus Screen Nasal MRSA/S.aureus Interp Stl C. cayetanensis PCR Stool Rotavirus A PCR Stl Adenov F 40/41 PCR Stool Astrovirus (PCR) Stool Campylobacter PCR Stool Cryptosporidium PCR Stl Sh Tox Pr E STEC PCR Stool E coli O157 PCR Stl Enterotoxigenic E PCR Stool EPEC (PCR) Stool EAEC (PCR) Stl E. histolytica PCR Stool Giardia Lamblia PCR Stl P. shigelloides PCR Stool Salmonella PCR Stool Sapovirus (PCR) Stl Shigella/EIEC PCR St Y.enterocolitica PCR Stool Vibrio (PCR) Stl Vibrio cholerae PCR Stl Norovirus GI/GII PCR Random Vancomycin C. difficile Tox B Gene Hepatitis A IgM Ab Hep Bs Antigen Hep Bs Antibody Hep B Core Total Ab Hepatitis C Ab (EIA) HIV 1&2 Ab/P24 Ag 4thGn Influenza Type A (PCR) Influenza Type B (PCR) Ur L.pneumophila Ag M.tuberculosis DNA (PCR) MTB Rifampin Resis PCR RSV RNA Qual (PCR) SARS-CoV-2 RNA (RT-PCR) TB Test (T-Spot) Com TB Test Nil Control TB Test Panel A TB Test Panel B TB Test Positive Cntrl Pre Ther Phlebot Hgb Pre Ther Phlebot Hct Therapeutic Phlebotomy Airway Mallampati Class: II TM Dist: >3cm Neck ROM: Full Lungs: scattered rales Assessment and Plan Assessment Anesthesia Assessment: Anesthesia Plan Discussed and Chart Reviewed Final Anesthetic Review Family History of Problems with Anesthesia: No History of Problems with Anesthesia: No NPO: Yes ASA Class: IV and Emergency Final Preanesthetic Review: No Changes in Pt Med Stat, Meds/Allgs Chart Reviewed, Consent Obtained/Reviewed and Anes Risks/Benef Reviewed Patient Risk: High Procedure Risk: Low Anesthetic Plan Anesthetic Plan: GA Disposition: Standard PACU
--- NOTE | 2024-07-11 10:41 | HO.PM.IMPN ---
Subjective Subjective Date of Service: 07/11/24 Interval History: Being followed for hypoxic respiratory failure/pneumonia. Persistent cough with watery secretions no change in output. No fevers, no chills, no acute events overnight. Review of Systems All other system reviewed and are negative Physical Exam Vital Signs: Vital Signs: Last Vital Signs Temp 97.8 F 07/11/24 07:10 Pulse 89 07/11/24 07:10 Resp 16 07/11/24 07:10 BP 118/82 07/11/24 07:10 Pulse Ox 90 L 07/11/24 07:10 O2 Del Method Oxymask 07/11/24 07:10 O2 Flow Rate 7 07/11/24 07:10 BMI result Body Mass Index 20.8 Const: Other: Gen: in no acute distress HEENT: sclera anicteric, moist mucus membranes Neck: supple Lungs: Persistent inspiratory crackles L >rt Heart: regular rate and rhythm, no murmurs Abd: soft, non-tender, non-distended Ext: no edema, R basilic midline Skin: warm/well-perfused, upper chest and upper back macular rash fading. Neuro: alert and oriented x3, no focal findings Psych: appropriate affect Objective Data Active Medications Acetaminophen (Acetaminophen 325 Mg Tablet) 650 mg PO Q6H PRN PRN Reason: Pain, Mild 1-3,fever,headache Al Hydroxide/Mg Hydroxide (Magnesium Hydrox/Alum Hydrox 30 Ml Oral.Susp) 30 ml PO Q6H PRN PRN Reason: heartburn Last Admin: 06/22/24 04:26 Dose: 30 ml Documented By: TEMO-CORY Albuterol/Ipratropium (Albuterol/Iprat 2.5/0.5mg 3 Ml Ampul.Neb) 3 ml INHALE Q4H PRN PRN Reason: Wheezing Benzocaine (Throat Lozenge, Medicated Lozenge) 1 lozenge MUCOUS MEM Q2H PRN PRN Reason: Sore Throat Last Admin: 07/08/24 05:49 Dose: 1 lozenge Documented By: PITER Benzonatate (Benzonatate 100 Mg Capsule) 200 mg PO TID PRN PRN Reason: Cough Last Admin: 07/09/24 22:11 Dose: 200 mg Documented By: DANNY Calcium Carbonate (Calcium Carbonate 750 Mg Tab.Chew) 750 mg PO Q4H PRN PRN Reason: Heartburn Last Admin: 06/22/24 09:47 Dose: 750 mg Documented By: ALVINA Heparin Sodium (Porcine) 50 (units/ Sodium Chloride 5 ml) 0 units IVFLUSH TID [facility] Last Admin: 07/10/24 20:05 Dose: 50 unit Documented By: NABOR Diphenhydramine HCl (Diphenhydramine Hcl 25 Mg Capsule) 25 mg PO Q6H PRN PRN Reason: Rash Last Admin: 07/06/24 15:21 Dose: 25 mg Documented By: VELVET Enoxaparin Sodium (Enoxaparin Sodium 40 Mg/0.4 Ml Syringe) 40 mg SUBCUT Q24H [facility] Last Admin: 07/10/24 16:15 Dose: 40 mg Documented By: NABOR Guaifenesin (Guaifenesin 200 Mg/10 Ml 10 Ml Liquid) 10 ml PO Q6H PRN PRN Reason: Cough Last Admin: 07/10/24 16:16 Dose: 10 ml Documented By: NABOR Guaifenesin/Dextromethorphan (Guaifenesin Dm 200/20/10 Ml 10 Ml Syrup) 10 ml PO QID PRN PRN Reason: Cough Last Admin: 07/11/24 00:42 Dose: 10 ml Documented By: ADELIA Levofloxacin (Levaquin) 750 mg in 150 mls @ 100 mls/hr IV Q24H [facility] Last Admin: 07/11/24 08:49 Dose: 100 mls/hr Documented By: SHANON Fluconazole (Diflucan) 400 mg in 200 mls @ 100 mls/hr IV Q24H [facility] Last Infusion: 07/10/24 16:21 Dose: Infused Documented By: NABOR Loperamide HCl (Loperamide Hcl 2 Mg Capsule) 4 mg PO Q4H PRN PRN Reason: Diarrhea Magnesium Hydroxide (Milk Of Magnesia 30 Ml Oral.Susp) 30 ml PO DAILY PRN PRN Reason: Constipation Melatonin (Melatonin 3 Mg Tablet) 6 mg PO BEDTIME PRN PRN Reason: Insomnia Naloxone HCl (Naloxone Hcl 0.4 Mg/Ml Vial) 0.04 mg IVPUSH Q5M PRN PRN Reason: Excessive sedation or RR < 8 Nicotine Polacrilex (Nicotine Polacrilex Lozenge 2 Mg Lozenge) 2 mg BUCCAL Q2H PRN PRN Reason: Nicotine Cravings Omeprazole (Omeprazole 20 Mg Capsule.Dr) 20 mg PO BID@0630,1630 [facility] Last Admin: 07/11/24 06:52 Dose: Not Given Documented By: ADELIA Non-Admin Reason: NPO Ondansetron HCl (Ondansetron Hcl 4 Mg/2 Ml Vial) 4 mg IVPUSH Q8H PRN PRN Reason: Nausea and Vomiting Last Admin: 06/22/24 19:52 Dose: 4 mg Documented By: TEMO-SHARIFZEJong Ondansetron HCl (Ondansetron Hcl 4 Mg/2 Ml Vial) 4 mg IVPUSH ONCE PRN PRN Reason: Nausea and Vomiting Stop: 07/11/24 16:11 Sodium Chloride (0.9 % Sodium Chloride Flush 3 Ml Syringe) 3 ml IVFLUSH QSHIFT [facility] Last Admin: 07/11/24 08:49 Dose: 3 ml Documented By: LEISATRH Labs 07/07/24 05:57 07/07/24 05:57 Assessment and Plan (1) Hyponatremia: Status: Acute (2) 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 (3) Pneumonia: Status: Acute (4) Acute hypoxic respiratory failure: Status: Acute Plan 59yo M with no known PMHx but no current primary care for past 5 yr, 45 pack-year smoking history presenting with dyspnea, productive cough, and fatigue x 1 month failed outpt therapy [levofloxacin x5d + doxycycline x10d], admitted for hypoxia and sepsis due to multifocal pneumonia with multiple abscesses acute hypoxic respiratory failrue and sepsis due to multifocal pneumonia with multiple abscesses - persistent cough with copious watery secretions - vancomycin 06/14-06/17 [MRSA swab negative], cefepime 06/14-06/24, metronidazole 06/16-06/24, azithromycin 06/17-06/24 - changed to meropenem 06/24 and plan ertapenem to complete 4 wk IV ABX per ID; end date 07/12; midline placed 06/24 - Legionella UAg negative, T-spot IGRA negative, TB PCR negative, AFB smear x3 negative, HIV negative; per ID yeast in sputum not significant unless Cryptococcus sp. - ID + Pulm consulted; unable to drain due to risk of pleural fistula; medical treatment with ABX recommedned - oxygen requirement unchanged in last several days; currently on 7L O2 Case discussed with Dr. Calloway, he recommended IV Diflucan started 07/08 and bronchoscopy today 07/11 - developed rash to meropenem therefore meropenem discontinued and patient placed on Levaquin iv 750mg on 07/05 drug rash likely due to meropenem - improved, s/p iv Solu Medrol hypoNa - resolved after fluid restriction, urea, and NaCl IV and tabs; Sodium 133 diarrhea - Cdiff and GI panel negative; diarrhea resolved likely due to antibiotics erythrocytosis - likely secondary to hypoxia from COPD; therapeutic phlebotomy per Heme-Onc due to increased risk of thrombosis; epo level normal;repeat hematocrit stable 49.3 GERD - PPI, Maalox tobacco abuse - NRT, counseling done VTE ppx - enoxaparin dispo - PT evaluation: IPR recommended, being followed daily by PT Quality Stroke Does the patient have a stroke diagnosis?: No VTE Prior VTE?: No VTE Risk Level:: Medical - moderate - high VTE Device Contraindication: Treatment Not Indicated VTE Drug Contraindication: N/A - Med Ordered
[2024-07-11] MEDS: Albuterol/Iprat 2.5/0.5MG 3 ML AMPUL.NEB INHALE (11:16)
--- NOTE | 2024-07-11 11:25 | P.BOP_ITS ---
Brief Operative Note Date of Service: 07/11/24 Pre-op diagnosis: Pneumonia Post-op diagnosis: same Procedure: Flexible bronchoscope advanced through the ET tube with patient intubated for the procedure and through the tracheobronchial tree. Copious amount of thin secretions noted bilaterally and cleared up. Normal bronchial mucosa noted underneath. No endobronchial lesions noted. Combined bilateral washings sent for further testing. Surgeon: Jovanni Calloway MD Anesthesia: GETA Was an English Language Learner Teacher used for this Procedure?: No Estimated blood loss (mL): 0
[2024-07-11] MEDS: Fluconazole in NaCl,Iso-Osm 400 MG/200 ML PIGGYBACK 100 MG IV (14:30)
[2024-07-11] MEDS: Enoxaparin Sodium 40 MG/0.4 ML SYRINGE SUBCUT (17:08)
[2024-07-11] MEDS: Omeprazole 20 MG CAPSULE.DR PO (17:09)
[2024-07-11] MEDS: Heparin Sodium,Porcine Flush 50 UNITS, 0.9 % Sodium Chloride Flush 5 ML IVFLUSH ×2 (17:11→21:38)
--- NOTE | 2024-07-11 19:44 | PC.NURSE ---
pt expressing frustration over the noise of the shovel mask and in process of procuring another oxymask per pt request. pt continued to remove O2 so 6L n/c applied with recheck of sat 92% on 6L n/c.
[2024-07-12 03:48] VITALS: BP 115/72; PULSE 65; RESP 18; TEMP 36.1; O2SAT 92
[2024-07-12] MEDS: Omeprazole 20 MG CAPSULE.DR PO ×2 (05:38→16:32)
[2024-07-12] MEDS: 0.9 % Sodium Chloride Flush 3 ML SYRINGE IVFLUSH ×2 (07:38→15:18)
[2024-07-12] MEDS: levoFLOXacin/D5W 750 MG/150 ML PIGGYBACK 100 MG IV (07:38)
[2024-07-12 07:45] VITALS: BP 127/81; PULSE 65; RESP 18; TEMP 36; O2SAT 93
--- NOTE | 2024-07-12 08:33 | HO.PM.IMPN ---
Subjective Subjective Date of Service: 07/12/24 Interval History: Being followed for hypoxic respiratory failure/pneumonia. Persistent cough with watery secretions, seems better today had bronchoscopy yesterday with noted copious amount of thin secretions noted bilaterally and cleared up. Normal bronchial mucosa noted underneath. No endobronchial lesions noted. No fevers, no chills, no acute events overnight. He feels better oveall, still on 7 liters sating 93 Review of Systems All other system reviewed and are negative Physical Exam Vital Signs: Vital Signs: Last Vital Signs Temp 96.8 F 07/12/24 07:45 Pulse 65 07/12/24 07:45 Resp 18 07/12/24 07:45 BP 127/81 07/12/24 07:45 Pulse Ox 93 07/12/24 07:45 O2 Del Method Nasal Cannula 07/12/24 07:45 O2 Flow Rate 7 07/12/24 07:45 BMI result Body Mass Index 20.8 Const: Other: Gen: in no acute distress HEENT: sclera anicteric, moist mucus membranes Neck: supple Lungs: Persistent inspiratory crackles L >rt, normal respiratory effort Heart: regular rate and rhythm, no murmurs Abd: soft, non-tender, non-distended Ext: no edema, R basilic midline Skin: warm/well-perfused, upper chest and upper back macular rash fading. Neuro: alert and oriented x3, no focal findings Psych: appropriate affect Objective Data Active Medications Acetaminophen (Acetaminophen 325 Mg Tablet) 650 mg PO Q6H PRN PRN Reason: Pain, Mild 1-3,fever,headache Al Hydroxide/Mg Hydroxide (Magnesium Hydrox/Alum Hydrox 30 Ml Oral.Susp) 30 ml PO Q6H PRN PRN Reason: heartburn Last Admin: 06/22/24 04:26 Dose: 30 ml Documented By: LES Albuterol/Ipratropium (Albuterol/Iprat 2.5/0.5mg 3 Ml Ampul.Neb) 3 ml INHALE Q4H PRN PRN Reason: Wheezing Last Admin: 07/11/24 11:16 Dose: 3 ml Documented By: AARON Benzocaine (Throat Lozenge, Medicated Lozenge) 1 lozenge MUCOUS MEM Q2H PRN PRN Reason: Sore Throat Last Admin: 07/08/24 05:49 Dose: 1 lozenge Documented By: PITER Benzonatate (Benzonatate 100 Mg Capsule) 200 mg PO TID PRN PRN Reason: Cough Last Admin: 07/09/24 22:11 Dose: 200 mg Documented By: DANNY Calcium Carbonate (Calcium Carbonate 750 Mg Tab.Chew) 750 mg PO Q4H PRN PRN Reason: Heartburn Last Admin: 06/22/24 09:47 Dose: 750 mg Documented By: ALVINA Heparin Sodium (Porcine) 50 (units/ Sodium Chloride 5 ml) 0 units IVFLUSH TID [facility] Last Admin: 07/11/24 21:38 Dose: 50 unit Documented By: DANNY Diphenhydramine HCl (Diphenhydramine Hcl 25 Mg Capsule) 25 mg PO Q6H PRN PRN Reason: Rash Last Admin: 07/06/24 15:21 Dose: 25 mg Documented By: VELVET Enoxaparin Sodium (Enoxaparin Sodium 40 Mg/0.4 Ml Syringe) 40 mg SUBCUT Q24H [facility] Last Admin: 07/11/24 17:08 Dose: 40 mg Documented By: SHANON Guaifenesin (Guaifenesin 200 Mg/10 Ml 10 Ml Liquid) 10 ml PO Q6H PRN PRN Reason: Cough Last Admin: 07/10/24 16:16 Dose: 10 ml Documented By: NABOR Guaifenesin/Dextromethorphan (Guaifenesin Dm 200/20/10 Ml 10 Ml Syrup) 10 ml PO QID PRN PRN Reason: Cough Last Admin: 07/11/24 00:42 Dose: 10 ml Documented By: ADELIA Levofloxacin (Levaquin) 750 mg in 150 mls @ 100 mls/hr IV Q24H [facility] Last Admin: 07/12/24 07:38 Dose: 100 mls/hr Documented By: COURTNEY Fluconazole (Diflucan) 400 mg in 200 mls @ 100 mls/hr IV Q24H [facility] Last Infusion: 07/11/24 16:45 Dose: Infused Documented By: SHANON Loperamide HCl (Loperamide Hcl 2 Mg Capsule) 4 mg PO Q4H PRN PRN Reason: Diarrhea Magnesium Hydroxide (Milk Of Magnesia 30 Ml Oral.Susp) 30 ml PO DAILY PRN PRN Reason: Constipation Melatonin (Melatonin 3 Mg Tablet) 6 mg PO BEDTIME PRN PRN Reason: Insomnia Naloxone HCl (Naloxone Hcl 0.4 Mg/Ml Vial) 0.04 mg IVPUSH Q5M PRN PRN Reason: Excessive sedation or RR < 8 Nicotine Polacrilex (Nicotine Polacrilex Lozenge 2 Mg Lozenge) 2 mg BUCCAL Q2H PRN PRN Reason: Nicotine Cravings Omeprazole (Omeprazole 20 Mg Capsule.Dr) 20 mg PO BID@0630,1630 [facility] Last Admin: 07/12/24 05:38 Dose: 20 mg Documented By: LYSMedhat Ondansetron HCl (Ondansetron Hcl 4 Mg/2 Ml Vial) 4 mg IVPUSH Q8H PRN PRN Reason: Nausea and Vomiting Last Admin: 06/22/24 19:52 Dose: 4 mg Documented By: TEMO-JOZEB Sodium Chloride (0.9 % Sodium Chloride Flush 3 Ml Syringe) 3 ml IVFLUSH QSHIFT [facility] Last Admin: 07/12/24 07:38 Dose: 3 ml Documented By: LARHO Labs 07/07/24 05:57 07/07/24 05:57 Microbiology Microbiology Results: Microbiology 07/11/24 10:46 Gram Stain - Final Bronchial Washings Assessment and Plan (1) Hyponatremia: Status: Acute (2) 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 (3) Pneumonia: Status: Acute (4) Acute hypoxic respiratory failure: Status: Acute Plan 59yo M with no known PMHx but no current primary care for past 5 yr, 45 pack-year smoking history presenting with dyspnea, productive cough, and fatigue x 1 month failed outpt therapy [levofloxacin x5d + doxycycline x10d], admitted for hypoxia and sepsis due to multifocal pneumonia with multiple abscesses acute hypoxic respiratory failrue and sepsis due to multifocal pneumonia with multiple abscesses - persistent cough with copious watery secretions - vancomycin 06/14-06/17 [MRSA swab negative], cefepime 06/14-06/24, metronidazole 06/16-06/24, azithromycin 06/17-06/24 - changed to meropenem 06/24 and plan ertapenem to complete 4 wk IV ABX per ID; end date 07/12; midline placed 06/24; - developed rash to meropenem therefore meropenem discontinued and patient placed on Levaquin iv 750mg on 07/05 - Legionella UAg negative, T-spot IGRA negative, TB PCR negative, AFB smear x3 negative, HIV negative; per ID yeast in sputum not significant unless Cryptococcus sp. - ID + Pulm consulted; unable to drain due to risk of pleural fistula; medical treatment with ABX recommedned - oxygen requirement unchanged in last several days; currently on 7L O2, continue trying to wean off -Dr. Calloway, he recommended IV Diflucan started 07/08 for shirlene albican in sputum and did bronchoscopy on 07/11 showing copious amount of thin secretions noted bilaterally and cleared up. Normal bronchial mucosa noted underneath. No endobronchial lesions noted. drug rash likely due to meropenem - improved, s/p iv Solu Medrol hypoNa - resolved after fluid restriction, urea, and NaCl IV and tabs; Sodium 133 diarrhea - Cdiff and GI panel negative; diarrhea resolved likely due to antibiotics erythrocytosis - likely secondary to hypoxia from COPD; therapeutic phlebotomy per Heme-Onc due to increased risk of thrombosis; epo level normal;repeat hematocrit stable 49.3 GERD - PPI, Maalox tobacco abuse - NRT, counseling done VTE ppx - enoxaparin dispo - PT evaluation: IPR recommended, being followed daily by PT Quality Stroke Does the patient have a stroke diagnosis?: No VTE Prior VTE?: No VTE Risk Level:: Medical - moderate - high VTE Device Contraindication: Treatment Not Indicated VTE Drug Contraindication: N/A - Med Ordered
[2024-07-12] MEDS: Heparin Sodium,Porcine Flush 50 UNITS, 0.9 % Sodium Chloride Flush 5 ML IVFLUSH ×3 (09:26→20:20)
[2024-07-12] MEDS: Albuterol/Iprat 2.5/0.5MG 3 ML AMPUL.NEB INHALE (11:46)
[2024-07-12 11:58] VITALS: PULSE 86; RESP 18; O2SAT 88
[2024-07-12] MEDS: Fluconazole in NaCl,Iso-Osm 400 MG/200 ML PIGGYBACK 100 MG IV (12:03)
[2024-07-12 14:57] VITALS: BP 115/65; PULSE 73; RESP 17; TEMP 36.3; O2SAT 92
[2024-07-12] MEDS: Enoxaparin Sodium 40 MG/0.4 ML SYRINGE SUBCUT (16:32)
[2024-07-12 17:09] LABS: Hematocrit 48.8 % (42.0-52.0); Hemoglobin 16.9 g/dl (14.0-18.0); Mean Corpuscular HGB Conc 34.6 g/dl (31.0-36.0); Mean Corpuscular Hemoglobin 30.7 pg (27.0-33.0); Mean Corpuscular Volume 88.7 fL (80.0-98.0); Mean Platelet Volume 8.5 fL (9.4-12.4); Platelet Count 290 X10*3/uL (160-400); Red Cell Distribution Width 12.8 % (11.0-16.0); White Blood Count 18.2 X10*3/uL (4.8-10.8)
[2024-07-12] MEDS: guaiFENesin DM 200/20/10 ML 10 ML SYRUP PO (17:10)
[2024-07-12 17:28] LABS: Anion Gap 15 (12-20); Blood Urea Nitrogen 19 mg/dL (9-16); Carbon Dioxide 28 mmol/L (22-29); Chloride 92 mmol/L (96-108); Creatinine Clr Calc Pharmacy 89.1; Estimated Glomerular Filt Rate > 60; Glucose Random 139 mg/dL (60-115); Potassium 4.1 mmol/L (3.3-5.1); Sodium 131 mmol/L (135-145)
[2024-07-12 19:39] VITALS: BP 127/64; PULSE 71; RESP 17; TEMP 36.4; O2SAT 92
[2024-07-12] MEDS: Throat Lozenge, Medicated LOZENGE 1 LOZENGE MUCOUS MEM (20:24)
[2024-07-13] VITALS (8 sets, daily range): BP systolic 108–120; BP diastolic 61–81; PULSE 65–128; RESP 16–20; TEMP 36–36.7; O2SAT 90–93
[2024-07-13] MEDS: 0.9 % Sodium Chloride Flush 3 ML SYRINGE IVFLUSH ×3 (00:32→15:06)
--- NOTE | 2024-07-13 02:56 | PC.NURSE ---
patient states he is feeling much better tonight. I took care of this patient holly night as well and notably better cough and doesn't feel as short of breath and is sleeping better tonight. Patient has a yankar and is oral suctioning self. He is in good spirits.
[2024-07-13] MEDS: guaiFENesin DM 200/20/10 ML 10 ML SYRUP PO (06:06)
[2024-07-13] MEDS: Omeprazole 20 MG CAPSULE.DR PO ×2 (06:06→15:50)
[2024-07-13] MEDS: Heparin Sodium,Porcine Flush 50 UNITS, 0.9 % Sodium Chloride Flush 5 ML IVFLUSH ×3 (08:02→20:12)
[2024-07-13] MEDS: levoFLOXacin/D5W 750 MG/150 ML PIGGYBACK 100 MG IV (08:03)
[2024-07-13] MEDS: Albuterol/Iprat 2.5/0.5MG 3 ML AMPUL.NEB INHALE ×2 (08:21→15:29)
--- NOTE | 2024-07-13 10:12 | HO.POSTANES ---
Post Anesthesia Evaluation Post Anesthesia Evaluation Date of Service: 07/13/24 Vital Signs: Vital Signs Temp Pulse Resp BP Pulse Ox O2 Del Method O2 Flow Rate 07/13/24 08:21 85 16 07/13/24 08:21 85 16 93 07/13/24 06:47 98.1 F 85 16 108/75 93 Oxymask 7 07/13/24 03:27 98.0 F 65 20 115/61 92 Oxymizer 7 Anesthesia: General Mental Status: Awake Pain Control: Satisfactory Nausea/Vomiting: None Hydration: Adequate Anesthesia-Related Issues: No Anes. Related Issues
[2024-07-13] MEDS: Fluconazole in NaCl,Iso-Osm 400 MG/200 ML PIGGYBACK 100 MG IV (11:55)
--- NOTE | 2024-07-13 14:30 | MHC.CM.PN ---
Per MD rounds patient not medically cleared for dc. CM will continue to follow.
[2024-07-13] MEDS: Enoxaparin Sodium 40 MG/0.4 ML SYRINGE SUBCUT (15:50)
--- NOTE | 2024-07-13 16:49 | HO.PM.IMPN ---
Subjective Subjective Date of Service: 07/13/24 Interval History: Being followed for acute hypoxic respiratory failure/pneumonia Complaining of persistent cough with watery secretions, no significant change post bronchoscopy, remained on 7 L of oxygen Tolerating diet no nausea, no vomiting or diarrhea Review of Systems All other system reviewed and are negative Physical Exam Vital Signs: Vital Signs: Last Vital Signs Temp 96.8 F 07/13/24 15:24 Pulse 96 07/13/24 15:30 Resp 20 07/13/24 15:30 BP 113/81 07/13/24 15:24 Pulse Ox 93 07/13/24 15:24 O2 Del Method Oxymizer 07/13/24 15:24 O2 Flow Rate 7 07/13/24 15:24 BMI result Body Mass Index 20.8 Const: Other: Gen: in no acute distress HEENT: sclera anicteric, moist mucus membranes Neck: supple Lungs: Persistent inspiratory crackles L >rt, normal respiratory effort Heart: regular rate and rhythm, no murmurs Abd: soft, non-tender, non-distended Ext: no edema, R basilic midline Skin: warm/well-perfused, upper chest and upper back macular rash fading. Neuro: alert and oriented x3, no focal findings Psych: appropriate affect Objective Data Active Medications Acetaminophen (Acetaminophen 325 Mg Tablet) 650 mg PO Q6H PRN PRN Reason: Pain, Mild 1-3,fever,headache Al Hydroxide/Mg Hydroxide (Magnesium Hydrox/Alum Hydrox 30 Ml Oral.Susp) 30 ml PO Q6H PRN PRN Reason: heartburn Last Admin: 06/22/24 04:26 Dose: 30 ml Documented By: LES Albuterol/Ipratropium (Albuterol/Iprat 2.5/0.5mg 3 Ml Ampul.Neb) 3 ml INHALE Q4H PRN PRN Reason: Wheezing Last Admin: 07/13/24 15:29 Dose: 3 ml Documented By: CHANEL Benzocaine (Throat Lozenge, Medicated Lozenge) 1 lozenge MUCOUS MEM Q2H PRN PRN Reason: Sore Throat Last Admin: 07/12/24 20:24 Dose: 1 lozenge Documented By: RODNEY Benzonatate (Benzonatate 100 Mg Capsule) 200 mg PO TID PRN PRN Reason: Cough Last Admin: 07/09/24 22:11 Dose: 200 mg Documented By: DANNY Calcium Carbonate (Calcium Carbonate 750 Mg Tab.Chew) 750 mg PO Q4H PRN PRN Reason: Heartburn Last Admin: 06/22/24 09:47 Dose: 750 mg Documented By: ALVINA Heparin Sodium (Porcine) 50 (units/ Sodium Chloride 5 ml) 0 units IVFLUSH TID [facility] Last Admin: 07/13/24 15:05 Dose: 50 unit Documented By: VELVET Diphenhydramine HCl (Diphenhydramine Hcl 25 Mg Capsule) 25 mg PO Q6H PRN PRN Reason: Rash Last Admin: 07/06/24 15:21 Dose: 25 mg Documented By: VELVET Enoxaparin Sodium (Enoxaparin Sodium 40 Mg/0.4 Ml Syringe) 40 mg SUBCUT Q24H [facility] Last Admin: 07/13/24 15:50 Dose: 40 mg Documented By: VELVET Guaifenesin (Guaifenesin 200 Mg/10 Ml 10 Ml Liquid) 10 ml PO Q6H PRN PRN Reason: Cough Last Admin: 07/10/24 16:16 Dose: 10 ml Documented By: NABOR Guaifenesin/Dextromethorphan (Guaifenesin Dm 200/20/10 Ml 10 Ml Syrup) 10 ml PO QID PRN PRN Reason: Cough Last Admin: 07/13/24 06:06 Dose: 10 ml Documented By: ADELIA Levofloxacin (Levaquin) 750 mg in 150 mls @ 100 mls/hr IV Q24H [facility] Last Infusion: 07/13/24 09:40 Dose: Infused Documented By: VELVET Fluconazole (Diflucan) 400 mg in 200 mls @ 100 mls/hr IV Q24H [facility] Last Infusion: 07/13/24 14:02 Dose: Infused Documented By: VELVET Loperamide HCl (Loperamide Hcl 2 Mg Capsule) 4 mg PO Q4H PRN PRN Reason: Diarrhea Magnesium Hydroxide (Milk Of Magnesia 30 Ml Oral.Susp) 30 ml PO DAILY PRN PRN Reason: Constipation Melatonin (Melatonin 3 Mg Tablet) 6 mg PO BEDTIME PRN PRN Reason: Insomnia Naloxone HCl (Naloxone Hcl 0.4 Mg/Ml Vial) 0.04 mg IVPUSH Q5M PRN PRN Reason: Excessive sedation or RR < 8 Nicotine Polacrilex (Nicotine Polacrilex Lozenge 2 Mg Lozenge) 2 mg BUCCAL Q2H PRN PRN Reason: Nicotine Cravings Omeprazole (Omeprazole 20 Mg Capsule.) 20 mg PO BID@0630,1630 [facility] Last Admin: 07/13/24 15:50 Dose: 20 mg Documented By: VELVET Ondansetron HCl (Ondansetron Hcl 4 Mg/2 Ml Vial) 4 mg IVPUSH Q8H PRN PRN Reason: Nausea and Vomiting Last Admin: 06/22/24 19:52 Dose: 4 mg Documented By: EBONI Sodium Chloride (0.9 % Sodium Chloride Flush 3 Ml Syringe) 3 ml IVFLUSH QSHIFT [facility] Last Admin: 07/13/24 15:06 Dose: 3 ml Documented By: VELVET Labs 07/12/24 16:59 07/12/24 16:59 Labs: Laboratory Results - last 24 hr 07/12/24 16:59 MCV 88.7 MCH 30.7 MCHC 34.6 RDW 12.8 Plt Count 290 MPV 8.5 L Absolute Nucleated RBC 0.000 Nucleated RBC % (auto) 0.0 Anion Gap 15 Estim Creat Clear Calc 89.1 Estimated GFR > 60 Random Glucose 139 H Calcium 9.0 D Microbiology Microbiology Results: Microbiology 07/11/24 10:46 Fungal Identification - Preliminary Bronchial Washings No growth to date. 07/11/24 10:46 Gram Stain - Final Bronchial Washings Routine Culture - Final No growth after 2 days Assessment and Plan (1) Acute hypoxic respiratory failure: Status: Acute (2) Pneumonia: Status: Acute Plan 59yo M with no known PMHx but no current primary care for past 5 yr, 45 pack-year smoking history presenting with dyspnea, productive cough, and fatigue x 1 month failed outpt therapy [levofloxacin x5d + doxycycline x10d], admitted for hypoxia and sepsis due to multifocal pneumonia with multiple abscesses acute hypoxic respiratory failrue and sepsis due to multifocal pneumonia with multiple abscesses - persistent cough with copious watery secretions - s/p vancomycin 06/14-06/17 [MRSA swab negative], cefepime 06/14-06/24, metronidazole 06/16-06/24, azithromycin 06/17-06/24 - changed to meropenem 06/24 and plan ertapenem to complete 4 wk IV ABX per ID; end date 07/12; midline placed 06/24; - developed rash to meropenem therefore meropenem discontinued and patient placed on Levaquin iv 750mg on 07/05 - Legionella UAg negative, T-spot IGRA negative, TB PCR negative, AFB smear x3 negative, HIV negative; per ID yeast in sputum not significant unless Cryptococcus sp. - ID + Pulm consulted; unable to drain due to risk of pleural fistula; medical treatment with ABX recommedned - oxygen requirement unchanged in last several days; currently on 7L O2, continue trying to wean off -Dr. Calloway, he recommended IV Diflucan started 07/08 for shirlene albican in sputum and did bronchoscopy on 07/11 showing copious amount of thin secretions noted bilaterally and cleared up. Normal bronchial mucosa noted underneath. No endobronchial lesions noted. Case discussed with Dr. Calloway, he recommend to follow cultures if negative then discharge patient on 4 weeks of levaquin and DC IV Diflucan drug rash likely due to meropenem - improved, s/p iv Solu Medrol hypoNa - resolved after fluid restriction, urea, and NaCl IV and tabs; Sodium 133 diarrhea - Cdiff and GI panel negative; diarrhea resolved likely due to antibiotics erythrocytosis - likely secondary to hypoxia from COPD; therapeutic phlebotomy per Heme-Onc due to increased risk of thrombosis; epo level normal;repeat hematocrit stable 49.3 GERD - PPI, Maalox tobacco abuse - NRT, counseling done VTE ppx - enoxaparin dispo - PT evaluation: IPR recommended, being followed daily by PT Quality Stroke Does the patient have a stroke diagnosis?: No VTE Prior VTE?: No VTE Risk Level:: Medical - moderate - high VTE Device Contraindication: Treatment Not Indicated VTE Drug Contraindication: N/A - Med Ordered
[2024-07-13] MEDS: Throat Lozenge, Medicated LOZENGE 1 LOZENGE MUCOUS MEM (17:49)
[2024-07-14] MEDS: guaiFENesin DM 200/20/10 ML 10 ML SYRUP PO (01:07)
[2024-07-14 04:00] VITALS: BP 117/78; PULSE 99; RESP 20; TEMP 36.1; O2SAT 91
[2024-07-14] MEDS: Albuterol/Iprat 2.5/0.5MG 3 ML AMPUL.NEB INHALE (05:02)
[2024-07-14 05:05] VITALS: PULSE 95; RESP 20; O2SAT 89
[2024-07-14] MEDS: Omeprazole 20 MG CAPSULE.DR PO ×2 (05:45→15:32)
[2024-07-14] MEDS: guaiFENesin 200 MG/10 ML 10 ML LIQUID PO ×2 (07:10→15:56)
[2024-07-14] MEDS: Throat Lozenge, Medicated LOZENGE 1 LOZENGE MUCOUS MEM ×3 (07:10→15:27)
[2024-07-14] MEDS: levoFLOXacin/D5W 750 MG/150 ML PIGGYBACK 100 MG IV (07:37)
[2024-07-14 07:58] VITALS: BP 134/80; PULSE 90; RESP 12; TEMP 36.4; O2SAT 93
[2024-07-14] MEDS: Heparin Sodium,Porcine Flush 50 UNITS, 0.9 % Sodium Chloride Flush 5 ML IVFLUSH ×3 (08:04→20:05)
[2024-07-14] MEDS: 0.9 % Sodium Chloride Flush 3 ML SYRINGE IVFLUSH ×2 (08:05→15:26)
[2024-07-14] MEDS: Benzonatate 100 MG CAPSULE 200 MG PO (10:14)
[2024-07-14] MEDS: Fluconazole in NaCl,Iso-Osm 400 MG/200 ML PIGGYBACK 100 MG IV (11:56)
--- NOTE | 2024-07-14 14:42 | HO.PM.IMPN ---
Subjective Subjective Date of Service: 07/14/24 Interval History: Continued to have cough with copious secretions, denies fever, no chills, tolerating diet no nausea no vomiting or abdominal pain, trying to keep hydrated. Review of Systems All other system reviewed and are negative. Physical Exam Vital Signs: Vital Signs: Last Vital Signs Temp 97.5 F 07/14/24 07:58 Pulse 90 07/14/24 07:58 Resp 12 07/14/24 07:58 BP 134/80 07/14/24 07:58 Pulse Ox 93 07/14/24 07:58 O2 Del Method Oxymizer 07/14/24 07:58 O2 Flow Rate 7 07/14/24 07:58 BMI result Body Mass Index 20.8 Const: Other: Gen: in no acute distress HEENT: sclera anicteric, moist mucus membranes Neck: supple Lungs: Persistent inspiratory crackles L >rt, normal respiratory effort Heart: regular rate and rhythm, no murmurs Abd: soft, non-tender, non-distended Ext: no edema, R basilic midline Skin: warm/well-perfused, upper chest and upper back macular rash fading. Neuro: alert and oriented x3, no focal findings Psych: appropriate affect Objective Data Active Medications Acetaminophen (Acetaminophen 325 Mg Tablet) 650 mg PO Q6H PRN PRN Reason: Pain, Mild 1-3,fever,headache Al Hydroxide/Mg Hydroxide (Magnesium Hydrox/Alum Hydrox 30 Ml Oral.Susp) 30 ml PO Q6H PRN PRN Reason: heartburn Last Admin: 06/22/24 04:26 Dose: 30 ml Documented By: LES Albuterol/Ipratropium (Albuterol/Iprat 2.5/0.5mg 3 Ml Ampul.Neb) 3 ml INHALE Q4H PRN PRN Reason: Wheezing Last Admin: 07/14/24 05:02 Dose: 3 ml Documented By: DIMPLE Benzocaine (Throat Lozenge, Medicated Lozenge) 1 lozenge MUCOUS MEM Q2H PRN PRN Reason: Sore Throat Last Admin: 07/14/24 10:13 Dose: 1 lozenge Documented By: GRAZIC Benzonatate (Benzonatate 100 Mg Capsule) 200 mg PO TID PRN PRN Reason: Cough Last Admin: 07/14/24 10:14 Dose: 200 mg Documented By: VELVET Calcium Carbonate (Calcium Carbonate 750 Mg Tab.Chew) 750 mg PO Q4H PRN PRN Reason: Heartburn Last Admin: 06/22/24 09:47 Dose: 750 mg Documented By: ALVINA Heparin Sodium (Porcine) 50 (units/ Sodium Chloride 5 ml) 0 units IVFLUSH TID [facility] Last Admin: 07/14/24 08:04 Dose: 50 unit Documented By: VELVET Diphenhydramine HCl (Diphenhydramine Hcl 25 Mg Capsule) 25 mg PO Q6H PRN PRN Reason: Rash Last Admin: 07/06/24 15:21 Dose: 25 mg Documented By: VELVET Enoxaparin Sodium (Enoxaparin Sodium 40 Mg/0.4 Ml Syringe) 40 mg SUBCUT Q24H [facility] Last Admin: 07/13/24 15:50 Dose: 40 mg Documented By: VELVET Guaifenesin (Guaifenesin 200 Mg/10 Ml 10 Ml Liquid) 10 ml PO Q6H PRN PRN Reason: Cough Last Admin: 07/14/24 07:10 Dose: 10 ml Documented By: VELVET Guaifenesin/Dextromethorphan (Guaifenesin Dm 200/20/10 Ml 10 Ml Syrup) 10 ml PO QID PRN PRN Reason: Cough Last Admin: 07/14/24 01:07 Dose: 10 ml Documented By: ODLEANDRA Levofloxacin (Levaquin) 750 mg in 150 mls @ 100 mls/hr IV Q24H [facility] Last Infusion: 07/14/24 09:12 Dose: Infused Documented By: VELVET Fluconazole (Diflucan) 400 mg in 200 mls @ 100 mls/hr IV Q24H [facility] Last Infusion: 07/14/24 14:05 Dose: Infused Documented By: VELVET Loperamide HCl (Loperamide Hcl 2 Mg Capsule) 4 mg PO Q4H PRN PRN Reason: Diarrhea Magnesium Hydroxide (Milk Of Magnesia 30 Ml Oral.Susp) 30 ml PO DAILY PRN PRN Reason: Constipation Melatonin (Melatonin 3 Mg Tablet) 6 mg PO BEDTIME PRN PRN Reason: Insomnia Naloxone HCl (Naloxone Hcl 0.4 Mg/Ml Vial) 0.04 mg IVPUSH Q5M PRN PRN Reason: Excessive sedation or RR < 8 Nicotine Polacrilex (Nicotine Polacrilex Lozenge 2 Mg Lozenge) 2 mg BUCCAL Q2H PRN PRN Reason: Nicotine Cravings Omeprazole (Omeprazole 20 Mg Capsule.Dr) 20 mg PO BID@0630,1630 [facility] Last Admin: 07/14/24 05:45 Dose: 20 mg Documented By: ODRISM Ondansetron HCl (Ondansetron Hcl 4 Mg/2 Ml Vial) 4 mg IVPUSH Q8H PRN PRN Reason: Nausea and Vomiting Last Admin: 06/22/24 19:52 Dose: 4 mg Documented By: N-JOZEB Sodium Chloride (0.9 % Sodium Chloride Flush 3 Ml Syringe) 3 ml IVFLUSH QSHIFT [facility] Last Admin: 07/14/24 08:05 Dose: 3 ml Documented By: GRAZIC Labs 07/12/24 16:59 07/12/24 16:59 Microbiology Microbiology Results: Microbiology 07/11/24 10:46 Fungal Identification - Preliminary Bronchial Washings No growth to date. Assessment and Plan (1) Acute hypoxic respiratory failure: Status: Acute (2) Abscess of lung with pneumonia: Status: Acute (3) Acute respiratory disease: Status: Acute (4) Hypoxia: Status: Acute Plan 59yo M with no known PMHx but no current primary care for past 5 yr, 45 pack-year smoking history presenting with dyspnea, productive cough, and fatigue x 1 month failed outpt therapy [levofloxacin x5d + doxycycline x10d], admitted for hypoxia and sepsis due to multifocal pneumonia with multiple abscesses acute hypoxic respiratory failrue and sepsis due to multifocal pneumonia with multiple abscesses - persistent cough with copious watery secretions - s/p vancomycin 06/14-06/17 [MRSA swab negative], cefepime 06/14-06/24, metronidazole 06/16-06/24, azithromycin 06/17-06/24 - changed to meropenem 06/24 and plan ertapenem to complete 4 wk IV ABX per ID; end date 07/12; midline placed 06/24; - developed rash to meropenem therefore meropenem discontinued and patient placed on Levaquin iv 750mg on 07/05 - Legionella UAg negative, T-spot IGRA negative, TB PCR negative, AFB smear x3 negative, HIV negative; per ID yeast in sputum not significant unless Cryptococcus sp. - ID + Pulm consulted; unable to drain due to risk of pleural fistula; medical treatment with ABX recommedned - oxygen requirement unchanged in last several days; currently on 7L O2, continue trying to wean off as tolerated. -Dr. Calloway, recommended IV Diflucan started 07/08 for shirlene albican in sputum and did bronchoscopy on 07/11 showing copious amount of thin secretions bilaterally and cleared up. Normal bronchial mucosa noted underneath. No endobronchial lesions noted. Case discussed with Dr. Calloway 07/13, he recommend to follow cultures if negative then discharge patient on 4 weeks of levaquin and DC IV Diflucan Routine bronchial washing cultures showed no growth x2 days, fungal cultures preliminary no growth, acid-fast bacilli smear and culture pending Encourage increased by mouth intake follow BMP periodically. drug rash likely due to meropenem - improved, s/p iv Solu Medrol hypoNa - resolved after fluid restriction, urea, and NaCl IV and tabs; Sodium 133 diarrhea - Cdiff and GI panel negative; diarrhea resolved likely due to antibiotics erythrocytosis - likely secondary to hypoxia from COPD; therapeutic phlebotomy per Heme-Onc due to increased risk of thrombosis; epo level normal;repeat hematocrit stable 49.3 GERD - PPI, Maalox tobacco abuse - NRT, counseling done VTE ppx - enoxaparin dispo - PT evaluation: IPR recommended, being followed daily by PT, case management rn arranging for safe disposition to pulmonary rehab. Quality Stroke Does the patient have a stroke diagnosis?: No VTE Prior VTE?: No VTE Risk Level:: Medical - moderate - high VTE Device Contraindication: Treatment Not Indicated VTE Drug Contraindication: N/A - Med Ordered
[2024-07-14] MEDS: Enoxaparin Sodium 40 MG/0.4 ML SYRINGE SUBCUT (15:26)
[2024-07-14 15:39] LABS: Adenovirus PCR Not Detected (Not Detect.); Bordetella parapertussis PCR Not Detected (Not Detect.); Bordetella pertussis PCR Not Detected (Not Detect.); Chlamydia pneumoniae PCR Not Detected (Not Detect.); Coronavirus 229E PCR Not Detected (Not Detect.); Coronavirus HKU1 PCR Not Detected (Not Detect.); Coronavirus NL63 PCR Not Detected (Not Detect.); Coronavirus OC43 PCR Not Detected (Not Detect.); Human metapneumovirus PCR Not Detected (Not Detect.); Influenza A PCR Not Detected (Not Detect.); Influenza B PCR Not Detected (Not Detect.); Mycoplasma pneumoniae PCR Not Detected (Not Detect.); Parainfluenza 1 PCR Not Detected (Not Detect.); Parainfluenza 2 PCR Not Detected (Not Detect.); Parainfluenza 3 PCR Not Detected (Not Detect.); Parainfluenza 4 PCR Not Detected (Not Detect.); RSV PCR Not Detected (Not Detect.); Rhino/Enterovirus PCR Not Detected (Not Detect.)
[2024-07-14 15:42] VITALS: BP 118/79; PULSE 104; RESP 16; TEMP 36.1; O2SAT 92
[2024-07-14 15:47] VITALS: PULSE 117; O2SAT 92
[2024-07-14 16:29] LABS: Influenza A H1 PCR Not Detected (Not Detect.); Influenza A H1-2009 PCR Not Detected (Not Detect.); Influenza A H3 PCR Not Detected (Not Detect.); SARS-CoV-2 PCR Not Detected (Not Detect.)
[2024-07-14 19:26] VITALS: BP 143/81; PULSE 96; RESP 18; TEMP 36; O2SAT 93
[2024-07-15 00:02] VITALS: O2SAT 92
[2024-07-15] MEDS: guaiFENesin 200 MG/10 ML 10 ML LIQUID PO (00:21)
[2024-07-15] MEDS: Throat Lozenge, Medicated LOZENGE 1 LOZENGE MUCOUS MEM ×3 (00:21→20:47)
[2024-07-15] MEDS: Albuterol/Iprat 2.5/0.5MG 3 ML AMPUL.NEB INHALE (02:46)
[2024-07-15 02:47] VITALS: PULSE 96; RESP 18
[2024-07-15 03:16] VITALS: BP 114/68; PULSE 97; RESP 20; TEMP 36.3; O2SAT 92
[2024-07-15] MEDS: Omeprazole 20 MG CAPSULE.DR PO ×2 (05:55→16:32)
[2024-07-15 07:18] VITALS: BP 118/77; PULSE 86; RESP 18; TEMP 36.6; O2SAT 91
[2024-07-15] MEDS: levoFLOXacin/D5W 750 MG/150 ML PIGGYBACK 100 MG IV (07:46)
[2024-07-15] MEDS: 0.9 % Sodium Chloride Flush 3 ML SYRINGE IVFLUSH ×2 (07:58→12:00)
[2024-07-15] MEDS: Heparin Sodium,Porcine Flush 50 UNITS, 0.9 % Sodium Chloride Flush 5 ML IVFLUSH ×3 (09:38→20:36)
[2024-07-15] MEDS: guaiFENesin DM 200/20/10 ML 10 ML SYRUP PO ×2 (09:56→16:35)
[2024-07-15] MEDS: Fluconazole in NaCl,Iso-Osm 400 MG/200 ML PIGGYBACK 100 MG IV (11:59)
--- NOTE | 2024-07-15 13:24 | MHC.CLN ---
F/U ENSURE BID ORDERED BY PROVIDER. PATIENT AGREEABLE TO SUPPLEMENT. ENSURE BID PROVIDES [address], [address] TO MONITOR WEEKLY.
--- NOTE | 2024-07-15 13:38 | MHC.CM.PN ---
Per MD awaiting thoracic consult. DP remains [facility] for inpatient pulmonary rehab. Auth pending. Patient updated. CM will continue to follow.
--- NOTE | 2024-07-15 13:54 | HO.PM.IMPN ---
Subjective Subjective Date of Service: 07/15/24 Interval History: Being followed for multifocal pneumonia/lung abscess [place] short of breath last night, persistent cough with copious watery secretions, feels tired and discouraged , denies fever, no chills, tolerating diet. Review of Systems All other system reviewed and are negative Physical Exam Vital Signs: Vital Signs: Last Vital Signs Temp 97.8 F 07/15/24 07:18 Pulse 86 07/15/24 07:18 Resp 18 07/15/24 07:18 BP 118/77 07/15/24 07:18 Pulse Ox 91 L 07/15/24 07:18 O2 Del Method Oxymizer 07/15/24 07:18 O2 Flow Rate 7 07/15/24 07:18 BMI result Body Mass Index 20.8 Const: Other: Gen: in no acute distress HEENT: sclera anicteric, moist mucus membranes Neck: supple Lungs: Persistent inspiratory crackles L >rt, normal respiratory effort Heart: regular rate and rhythm, no murmurs Abd: soft, non-tender, non-distended Ext: no edema, R basilic midline Skin: warm/well-perfused, upper chest and upper back macular rash fading. Neuro: alert and oriented x3, no focal findings Psych: appropriate affect Objective Data Active Medications Acetaminophen (Acetaminophen 325 Mg Tablet) 650 mg PO Q6H PRN PRN Reason: Pain, Mild 1-3,fever,headache Al Hydroxide/Mg Hydroxide (Magnesium Hydrox/Alum Hydrox 30 Ml Oral.Susp) 30 ml PO Q6H PRN PRN Reason: heartburn Last Admin: 06/22/24 04:26 Dose: 30 ml Documented By: TEMO-CORY Albuterol/Ipratropium (Albuterol/Iprat 2.5/0.5mg 3 Ml Ampul.Neb) 3 ml INHALE Q4H PRN PRN Reason: Wheezing Last Admin: 07/15/24 02:46 Dose: 3 ml Documented By: ANDREW Benzocaine (Throat Lozenge, Medicated Lozenge) 1 lozenge MUCOUS MEM Q2H PRN PRN Reason: Sore Throat Last Admin: 07/15/24 00:21 Dose: 1 lozenge Documented By: ODRISM Benzonatate (Benzonatate 100 Mg Capsule) 200 mg PO TID PRN PRN Reason: Cough Last Admin: 07/14/24 10:14 Dose: 200 mg Documented By: VELVET Calcium Carbonate (Calcium Carbonate 750 Mg Tab.Chew) 750 mg PO Q4H PRN PRN Reason: Heartburn Last Admin: 06/22/24 09:47 Dose: 750 mg Documented By: ALVINA Heparin Sodium (Porcine) 50 (units/ Sodium Chloride 5 ml) 0 units IVFLUSH TID [facility] Last Admin: 07/15/24 09:38 Dose: 50 unit Documented By: MELVI Diphenhydramine HCl (Diphenhydramine Hcl 25 Mg Capsule) 25 mg PO Q6H PRN PRN Reason: Rash Last Admin: 07/06/24 15:21 Dose: 25 mg Documented By: VELVET Enoxaparin Sodium (Enoxaparin Sodium 40 Mg/0.4 Ml Syringe) 40 mg SUBCUT Q24H [facility] Last Admin: 07/14/24 15:26 Dose: 40 mg Documented By: VELVET Guaifenesin (Guaifenesin 200 Mg/10 Ml 10 Ml Liquid) 10 ml PO Q6H PRN PRN Reason: Cough Last Admin: 07/15/24 00:21 Dose: 10 ml Documented By: OMAR Guaifenesin/Dextromethorphan (Guaifenesin Dm 200/20/10 Ml 10 Ml Syrup) 10 ml PO QID PRN PRN Reason: Cough Last Admin: 07/15/24 09:56 Dose: 10 ml Documented By: SANCHEZ Levofloxacin (Levaquin) 750 mg in 150 mls @ 100 mls/hr IV Q24H [facility] Last Infusion: 07/15/24 09:51 Dose: Infused Documented By: SANCHEZ Fluconazole (Diflucan) 400 mg in 200 mls @ 100 mls/hr IV Q24H [facility] Last Admin: 07/15/24 11:59 Dose: 100 mls/hr Documented By: MELVI Loperamide HCl (Loperamide Hcl 2 Mg Capsule) 4 mg PO Q4H PRN PRN Reason: Diarrhea Magnesium Hydroxide (Milk Of Magnesia 30 Ml Oral.Susp) 30 ml PO DAILY PRN PRN Reason: Constipation Melatonin (Melatonin 3 Mg Tablet) 6 mg PO BEDTIME PRN PRN Reason: Insomnia Naloxone HCl (Naloxone Hcl 0.4 Mg/Ml Vial) 0.04 mg IVPUSH Q5M PRN PRN Reason: Excessive sedation or RR < 8 Nicotine Polacrilex (Nicotine Polacrilex Lozenge 2 Mg Lozenge) 2 mg BUCCAL Q2H PRN PRN Reason: Nicotine Cravings Omeprazole (Omeprazole 20 Mg Capsule.Dr) 20 mg PO BID@0630,1630 [facility] Last Admin: 07/15/24 05:55 Dose: 20 mg Documented By: ODRISElsy Ondansetron HCl (Ondansetron Hcl 4 Mg/2 Ml Vial) 4 mg IVPUSH Q8H PRN PRN Reason: Nausea and Vomiting Last Admin: 06/22/24 19:52 Dose: 4 mg Documented By: CLAUDIOZEJong Sodium Chloride (0.9 % Sodium Chloride Flush 3 Ml Syringe) 3 ml IVFLUSH QSHIFT [facility] Last Admin: 07/15/24 12:00 Dose: 3 ml Documented By: LISSETH-RACIA Labs 07/12/24 16:59 07/12/24 16:59 Labs: Laboratory Results - last 24 hr 07/14/24 14:00 Respiratory Panel [place] See Note Adenovirus (Rapid PCR) Not Detected B.pert (TEM-PCR) Not Detected B.parapertussis DNA PCR Not Detected C. pneumoniae DNA (PCR) Not Detected Coronavirus OC43 (PCR) Not Detected Coronavirus HKU1 (PCR) Not Detected Coronavirus 229E (PCR) Not Detected Coronavirus NL63 (PCR) Not Detected Human Metapneumovir PCR Not Detected Influenza A (RT-PCR) Not Detected Influenza A (H1) PCR Not Detected Influ A (H1/09) PCR Not Detected Influenza A (H3) PCR Not Detected Influenza B (RT-PCR) Not Detected M. pneumoniae (PCR) Not Detected Parainfluenza 1 (PCR) Not Detected Parainfluenza 2 (PCR) Not Detected Parainfluenza 3 (PCR) Not Detected Parainfluenza 4 (PCR) Not Detected RSV (PCR) Not Detected Entero/Rhino (PCR) Not Detected SARS-CoV-2 RNA (RT-PCR) Not Detected Assessment and Plan (1) Hyponatremia: Status: Acute (2) 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 (3) Pneumonia: Status: Acute (4) Abscess of lung with pneumonia: Status: Acute Plan 59yo M with no known PMHx but no current primary care for past 5 yr, 45 pack-year smoking history presenting with dyspnea, productive cough, and fatigue x 1 month failed outpt therapy [levofloxacin x5d + doxycycline x10d], admitted for hypoxia and sepsis due to multifocal pneumonia with multiple abscesses acute hypoxic respiratory failrue and sepsis due to multifocal pneumonia with multiple abscesses - persistent cough with copious watery secretions - s/p vancomycin 06/14-06/17 [MRSA swab negative], cefepime 06/14-06/24, metronidazole 06/16-06/24, azithromycin 06/17-06/24 - changed to meropenem 06/24 and plan ertapenem to complete 4 wk IV ABX per ID; end date 07/12; midline placed 06/24; - developed rash to meropenem therefore meropenem discontinued and patient placed on Levaquin iv 750mg on 07/05 - Legionella UAg negative, T-spot IGRA negative, TB PCR negative, AFB smear x3 negative, HIV negative; per ID yeast in sputum not significant unless Cryptococcus sp. - ID + Pulm consulted; unable to drain due to risk of pleural fistula; medical treatment with ABX recommeded - oxygen requirement unchanged in last several days; currently on 7L O2, continue trying to wean off as tolerated. -on IV Diflucan started 07/08 for shirlene albican in sputum and iv levaquin 07/05 s/p bronchoscopy on 07/11 showing copious amount of thin secretions bilaterally , Normal bronchial mucosa noted underneath. No endobronchial lesions noted. Routine bronchial washing cultures showed no growth x2 days, fungal cultures preliminary no growth, acid-fast bacilli smear and culture pending , pathology negative for malignancy Repeat chest x-ray today showed persistent extensive airspace opacity in right mid to lower lung salt and entire left lung as seen previously compatible with pneumonia, air-fluid levels in the left lower lobe compatible with abscess formation Case discussed with ship's surveyor Dr. Calloway recommend thoracic surgery consultation for further eval and intervention drug rash likely due to meropenem - improved, s/p iv Solu Medrol hypoNa - resolved after fluid restriction, urea, and NaCl IV and tabs; diarrhea - Cdiff and GI panel negative; diarrhea resolved likely due to antibiotics erythrocytosis - likely secondary to hypoxia from COPD; repeat hematocrit stable 49.3 GERD - PPI, Maalox tobacco abuse - NRT, counseling done VTE ppx - enoxaparin dispo - PT evaluation: IPR recommended, being followed daily by PT, case operator arranging for safe disposition to pulmonary rehab. Quality Stroke Does the patient have a stroke diagnosis?: No VTE Prior VTE?: No VTE Risk Level:: Medical - moderate - high VTE Device Contraindication: Treatment Not Indicated VTE Drug Contraindication: N/A - Med Ordered
--- NOTE | 2024-07-15 14:25 | HO.THORCON_ITS ---
History of Present Illness Consult details Consult date: 07/15/24 Requesting physician: Gasper Duarte Narrative: 59 year old male with no known PMH however no PCP f/u for past 5 yrs, 45 pack- year smoking history, who initially presented to the ED with complaints of dyspnea, productive cough, and fatigue x 1 month. He was subsequently admitted to the hospitalist service for hypoxia and sepsis due to multifocal pneumonia with concern for LLL abscesses/cavitating lesion. He has had a very lengthy hospital stay and is s/p vancomycin 06/14-06/17, cefepime 06/14-06/24, metronidazole 06/16-06/24, azithromycin 06/17-06/24, now on levaquin and diflucan. He underwent bronchoscopy which showed copious amount of thin secretions noted bilaterally, normal bronchial mucosa, no endobronchial lesions noted. Brushings negative for malignancy. The patient continues to report no improvement in his symptoms. He reports shortness of breath upon ambulating to commode at bedside. He is producing copious secretions. 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 F/u CXR today shows extensive airspace opacity and persistent air/fluid levels in the left lower lobe as noted on chest CT, compatible with abscess formation. His WBC count is trending up and is 18.2. Review of Systems 2 Review of Systems: Yes all other systems are reviewed and are negative PMFSH Past Medical History Medical History Acute respiratory disease Wheezing on auscultation Cough Family History Family History Father Lung cancer Mother Unknown family medical history Family history: reviewed and not pertinent Social History Social History Household Members: Family Household Members Other:: mother and disabled brother Housing: Apartment Do you presently have visiting nurse or other home services: Yes Alcohol intake: former Patient Tobacco Use Status: Former Tobacco user Tobacco use type: Cigarette e-Cigarette/Vaping Use: Never Used Second Hand Smoke Exposure: No service: No Meds Allergies Allergy/AdvReac Type Severity Reaction Status Date / Time penicillin G Allergy Unknown unknown Verified 06/14/24 10:46 penicillin V Allergy Unknown unknown Verified 06/14/24 10:46 reaction Penicillins [PENICILLINS] Allergy Unknown UNKNOWN Verified 06/14/24 10:46 clindamycin Allergy Intermediate rash Uncoded 07/05/24 07:24 Active Medications: Current Medications Acetaminophen (Acetaminophen 325 Mg Tablet) 650 mg PO Q6H PRN PRN Reason: Pain, Mild 1-3,fever,headache Al Hydroxide/Mg Hydroxide (Magnesium Hydrox/Alum Hydrox 30 Ml Oral.Susp) 30 ml PO Q6H PRN PRN Reason: heartburn Last Admin: 06/22/24 04:26 Dose: 30 ml Albuterol/Ipratropium (Albuterol/Iprat 2.5/0.5mg 3 Ml Ampul.Neb) 3 ml INHALE Q4H PRN PRN Reason: Wheezing Last Admin: 07/15/24 02:46 Dose: 3 ml Benzocaine (Throat Lozenge, Medicated Lozenge) 1 lozenge MUCOUS MEM Q2H PRN PRN Reason: Sore Throat Last Admin: 07/15/24 00:21 Dose: 1 lozenge Benzonatate (Benzonatate 100 Mg Capsule) 200 mg PO TID PRN PRN Reason: Cough Last Admin: 07/14/24 10:14 Dose: 200 mg Calcium Carbonate (Calcium Carbonate 750 Mg Tab.Chew) 750 mg PO Q4H PRN PRN Reason: Heartburn Last Admin: 06/22/24 09:47 Dose: 750 mg Heparin Sodium (Porcine) 50 (units/ Sodium Chloride 5 ml) 0 units IVFLUSH TID [facility] Last Admin: 07/15/24 09:38 Dose: 50 unit Diphenhydramine HCl (Diphenhydramine Hcl 25 Mg Capsule) 25 mg PO Q6H PRN PRN Reason: Rash Last Admin: 07/06/24 15:21 Dose: 25 mg Enoxaparin Sodium (Enoxaparin Sodium 40 Mg/0.4 Ml Syringe) 40 mg SUBCUT Q24H [facility] Last Admin: 07/14/24 15:26 Dose: 40 mg Guaifenesin (Guaifenesin 200 Mg/10 Ml 10 Ml Liquid) 10 ml PO Q6H PRN PRN Reason: Cough Last Admin: 07/15/24 00:21 Dose: 10 ml Guaifenesin/Dextromethorphan (Guaifenesin Dm 200/20/10 Ml 10 Ml Syrup) 10 ml PO QID PRN PRN Reason: Cough Last Admin: 07/15/24 09:56 Dose: 10 ml Levofloxacin (Levaquin) 750 mg in 150 mls @ 100 mls/hr IV Q24H [facility] Last Infusion: 07/15/24 09:51 Dose: Infused Fluconazole (Diflucan) 400 mg in 200 mls @ 100 mls/hr IV Q24H [facility] Last Admin: 07/15/24 11:59 Dose: 100 mls/hr Loperamide HCl (Loperamide Hcl 2 Mg Capsule) 4 mg PO Q4H PRN PRN Reason: Diarrhea Magnesium Hydroxide (Milk Of Magnesia 30 Ml Oral.Susp) 30 ml PO DAILY PRN PRN Reason: Constipation Melatonin (Melatonin 3 Mg Tablet) 6 mg PO BEDTIME PRN PRN Reason: Insomnia Naloxone HCl (Naloxone Hcl 0.4 Mg/Ml Vial) 0.04 mg IVPUSH Q5M PRN PRN Reason: Excessive sedation or RR < 8 Nicotine Polacrilex (Nicotine Polacrilex Lozenge 2 Mg Lozenge) 2 mg BUCCAL Q2H PRN PRN Reason: Nicotine Cravings Omeprazole (Omeprazole 20 Mg Capsule.) 20 mg PO BID@0630,1630 [facility] Last Admin: 07/15/24 05:55 Dose: 20 mg Ondansetron HCl (Ondansetron Hcl 4 Mg/2 Ml Vial) 4 mg IVPUSH Q8H PRN PRN Reason: Nausea and Vomiting Last Admin: 06/22/24 19:52 Dose: 4 mg Sodium Chloride (0.9 % Sodium Chloride Flush 3 Ml Syringe) 3 ml IVFLUSH QSHIFT [facility] Last Admin: 07/15/24 12:00 Dose: 3 ml Home Medications ?Medication ?Instructions ?Recorded ?Confirmed ?Last Taken ?Type albuterol sulfate 90 mcg/actuation 2 puff inhalation Q6H PRN 06/14/24 06/14/24 Unknown History aerosol inhaler shortness of breath or wheezing ibuprofen 400 mg tablet 400 mg PO Q8H PRN Pain 06/14/24 06/14/24 Unknown History Physical Exam 2 Vital Signs: Vital Signs: Last Vital Signs Temp 97.8 F 07/15/24 07:18 Pulse 86 07/15/24 07:18 Resp 18 07/15/24 07:18 BP 118/77 07/15/24 07:18 Pulse Ox 91 L 07/15/24 07:18 O2 Del Method Oxymizer 07/15/24 07:18 O2 Flow Rate 7 07/15/24 07:18 BMI result Body Mass Index 20.8 Const: General: comfortable and alert Nutritional Appearance: thin O rientation/consciousness: patient oriented x3 Neck: Neck: Yes no JVD Chest: Chest palpation & inspection: normal inspection of the chest and normal palpation of entire chest wall Resp: Effort & Inspection: normal respiratory effort, able to speak in complete sentences, Actively coughing, not labored, not tachypneic and no use of accessory muscles Cardio: Rate: regular rate GI: Palpation (GI): Soft to palpation and nontender Skin: General skin exam: no rashes or lesions noted Neuro: General: patient oriented x3 and moves all extremities Results Labs 07/12/24 16:59 07/12/24 16:59 Labs: Urine 06/15/24 Range/Units 07:14 Urine Color Yellow Urine Appearance Clear Urine pH 5.5 (5.0-9.0) Ur Specific [place] >= 1.030 H (1.005-1.025) Urine Protein Negative (Neg-Trace) mg/dL Urine Glucose (UA) Negative (Negative) mg/dL All other labs normal. Imaging Chest x-ray: report reviewed and image reviewed CT scan - chest: report reviewed and image reviewed Assessment and Plan (1) Acute hypoxic respiratory failure: Status: Acute (2) Abscess of lung with pneumonia: Qualifiers: Laterality: left Lung location: lower lobe of lung Qualified Code(s): J85.1 - Abscess of lung with pneumonia Status: Acute Plan 59 year old male with no known PMH however no PCP f/u for past 5 yrs, 45 pack- year smoking history, who initially presented to the ED with complaints of dyspnea, productive cough, and fatigue x 1 month admitted to the hospitalist service for hypoxia and sepsis due to multifocal pneumonia with LLL abscesses/cavitating lesion. He has had multiple abx courses without improvement in his symptoms or oxygen requirements. He is currently stable. At this point, patient has failed nonoperative measures. We did discuss he will likely require thoracotomy, left lower wedge resection vs lobectomy depending on operative findings. Will continue to follow. Procedures Date of Service Date of Service: 07/15/24
[2024-07-15 15:22] VITALS: BP 108/74; PULSE 93; RESP 18; TEMP 36.3; O2SAT 93
[2024-07-15] MEDS: Enoxaparin Sodium 40 MG/0.4 ML SYRINGE SUBCUT (16:30)
[2024-07-15] MEDS: Benzonatate 100 MG CAPSULE 200 MG PO (18:10)
[2024-07-15 19:23] VITALS: BP 106/74; PULSE 101; RESP 18; TEMP 36; O2SAT 91
[2024-07-16] MEDS: guaiFENesin 200 MG/10 ML 10 ML LIQUID PO (02:30)
[2024-07-16] MEDS: Throat Lozenge, Medicated LOZENGE 1 LOZENGE MUCOUS MEM ×6 (02:30→20:46)
[2024-07-16 04:00] VITALS: BP 114/75; PULSE 75; RESP 18; TEMP 36.6; O2SAT 95
[2024-07-16] MEDS: Omeprazole 20 MG CAPSULE.DR PO ×2 (05:56→16:13)
[2024-07-16 07:15] VITALS: BP 111/73; PULSE 91; RESP 20; TEMP 36.4; O2SAT 93
[2024-07-16] MEDS: guaiFENesin DM 200/20/10 ML 10 ML SYRUP PO ×2 (09:07→16:45)
[2024-07-16] MEDS: levoFLOXacin/D5W 750 MG/150 ML PIGGYBACK 100 MG IV (09:07)
[2024-07-16] MEDS: 0.9 % Sodium Chloride Flush 3 ML SYRINGE IVFLUSH (09:08)
[2024-07-16 09:31] LABS: Hematocrit 52.4 % (42.0-52.0); Hemoglobin 18.1 g/dl (14.0-18.0); Mean Corpuscular HGB Conc 34.5 g/dl (31.0-36.0); Mean Corpuscular Hemoglobin 30.2 pg (27.0-33.0); Mean Corpuscular Volume 87.5 fL (80.0-98.0); Mean Platelet Volume 8.8 fL (9.4-12.4); Platelet Count 288 X10*3/uL (160-400); Red Blood Count 5.99 X10*6/uL (4.60-5.80); Red Cell Distribution Width 13.2 % (11.0-16.0); White Blood Count 19.4 X10*3/uL (4.8-10.8)
--- NOTE | 2024-07-16 09:55 | P.PNIM_ITS ---
Subjective Subjective Date of Service: 07/16/24 Interval History: Being followed for pneumonia/lung abscess No change in last several days persistent cough with copious clear secretions and intermittent shortness of breath, denies fever, no chills, no acute issues overnight, on Oxymizer 7 L. Tolerating diet. Review of Systems All other system reviewed and are negative. Physical Exam 2 Vital Signs: Vital Signs: Last Vital Signs Temp 97.6 F 07/16/24 07:15 Pulse 91 07/16/24 07:15 Resp 20 07/16/24 07:15 BP 111/73 07/16/24 07:15 Pulse Ox 93 07/16/24 07:15 O2 Del Method Oxymizer 07/16/24 07:15 O2 Flow Rate 7 07/16/24 07:15 BMI result Body Mass Index 20.8 Const: Other: Gen: in no acute distress HEENT: sclera anicteric, moist mucus membranes Neck: supple Lungs: Persistent inspiratory crackles L >rt, normal respiratory effort Heart: regular rate and rhythm, no murmurs Abd: soft, non-tender, non-distended Ext: no edema, R basilic midline Skin: warm/well-perfused, upper chest and upper back macular rash fading. Neuro: alert and oriented x3, no focal findings Psych: appropriate affect Objective Data Active Medications Acetaminophen (Acetaminophen 325 Mg Tablet) 650 mg PO Q6H PRN PRN Reason: Pain, Mild 1-3,fever,headache Al Hydroxide/Mg Hydroxide (Magnesium Hydrox/Alum Hydrox 30 Ml Oral.Susp) 30 ml PO Q6H PRN PRN Reason: heartburn Last Admin: 06/22/24 04:26 Dose: 30 ml Documented By: LES Albuterol/Ipratropium (Albuterol/Iprat 2.5/0.5mg 3 Ml Ampul.Neb) 3 ml INHALE Q4H PRN PRN Reason: Wheezing Last Admin: 07/15/24 02:46 Dose: 3 ml Documented By: ANDREW Benzocaine (Throat Lozenge, Medicated Lozenge) 1 lozenge MUCOUS MEM Q2H PRN PRN Reason: Sore Throat Last Admin: 07/16/24 06:40 Dose: 1 lozenge Documented By: EMEKA Benzonatate (Benzonatate 100 Mg Capsule) 200 mg PO TID PRN PRN Reason: Cough Last Admin: 07/15/24 18:10 Dose: 200 mg Documented By: COURTNEY Calcium Carbonate (Calcium Carbonate 750 Mg Tab.Chew) 750 mg PO Q4H PRN PRN Reason: Heartburn Last Admin: 06/22/24 09:47 Dose: 750 mg Documented By: ALVINA Heparin Sodium (Porcine) 50 (units/ Sodium Chloride 5 ml) 0 units IVFLUSH TID [facility] Last Admin: 07/15/24 20:36 Dose: 50 unit Documented By: EMEKA Diphenhydramine HCl (Diphenhydramine Hcl 25 Mg Capsule) 25 mg PO Q6H PRN PRN Reason: Rash Last Admin: 07/06/24 15:21 Dose: 25 mg Documented By: VELVET Enoxaparin Sodium (Enoxaparin Sodium 40 Mg/0.4 Ml Syringe) 40 mg SUBCUT Q24H [facility] Last Admin: 07/15/24 16:30 Dose: 40 mg Documented By: COURTNEY Guaifenesin (Guaifenesin 200 Mg/10 Ml 10 Ml Liquid) 10 ml PO Q6H PRN PRN Reason: Cough Last Admin: 07/16/24 02:30 Dose: 10 ml Documented By: EMEKA Guaifenesin/Dextromethorphan (Guaifenesin Dm 200/20/10 Ml 10 Ml Syrup) 10 ml PO QID PRN PRN Reason: Cough Last Admin: 07/16/24 09:07 Dose: 10 ml Documented By: SANCHEZ Levofloxacin (Levaquin) 750 mg in 150 mls @ 100 mls/hr IV Q24H [facility] Last Admin: 07/16/24 09:07 Dose: 100 mls/hr Documented By: SANCHEZ Fluconazole (Diflucan) 400 mg in 200 mls @ 100 mls/hr IV Q24H [facility] Last Infusion: 07/15/24 14:56 Dose: Infused Documented By: SANCHEZ Loperamide HCl (Loperamide Hcl 2 Mg Capsule) 4 mg PO Q4H PRN PRN Reason: Diarrhea Magnesium Hydroxide (Milk Of Magnesia 30 Ml Oral.Susp) 30 ml PO DAILY PRN PRN Reason: Constipation Melatonin (Melatonin 3 Mg Tablet) 6 mg PO BEDTIME PRN PRN Reason: Insomnia Naloxone HCl (Naloxone Hcl 0.4 Mg/Ml Vial) 0.04 mg IVPUSH Q5M PRN PRN Reason: Excessive sedation or RR < 8 Nicotine Polacrilex (Nicotine Polacrilex Lozenge 2 Mg Lozenge) 2 mg BUCCAL Q2H PRN PRN Reason: Nicotine Cravings Omeprazole (Omeprazole 20 Mg Capsule.Dr) 20 mg PO BID@0630,1630 [facility] Last Admin: 07/16/24 05:56 Dose: 20 mg Documented By: EMEKA Ondansetron HCl (Ondansetron Hcl 4 Mg/2 Ml Vial) 4 mg IVPUSH Q8H PRN PRN Reason: Nausea and Vomiting Last Admin: 06/22/24 19:52 Dose: 4 mg Documented By: EBONI Sodium Chloride (0.9 % Sodium Chloride Flush 3 Ml Syringe) 3 ml IVFLUSH QSHIFT [facility] Last Admin: 07/16/24 09:08 Dose: 3 ml Documented By: BROJong Labs 07/16/24 08:34 07/12/24 16:59 Labs: Laboratory Results - last 24 hr 07/16/24 08:34 MCV 87.5 MCH 30.2 MCHC 34.5 RDW 13.2 Plt Count 288 MPV 8.8 L Absolute Nucleated RBC 0.000 Nucleated RBC % (auto) 0.0 Assessment and Plan (1) 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 (2) Pneumonia: Status: Acute (3) Acute hypoxic respiratory failure: Status: Acute (4) Abscess of lung with pneumonia: Status: Acute Plan 59yo M with no known PMHx but no current primary care for past 5 yr, 45 pack- year smoking history presenting with dyspnea, productive cough, and fatigue x 1 month failed outpt therapy [levofloxacin x5d + doxycycline x10d], admitted for hypoxia and sepsis due to multifocal pneumonia with multiple abscesses acute hypoxic respiratory failrue and sepsis due to multifocal pneumonia with multiple abscesses - persistent cough with copious watery secretions, worsening wbc - s/p vancomycin 06/14-06/17 [MRSA swab negative], cefepime 06/14-06/24, metronidazole 06/16-06/24, azithromycin 06/17-06/24 - Legionella UAg negative, T-spot IGRA negative, TB PCR negative, AFB smear x3 negative, HIV negative; per ID yeast in sputum not significant unless Cryptococcus sp. - ID + Pulm consulted; unable to drain lung abscess due to risk of pleural fistula; medical treatment with ABX recommeded - oxygen requirement unchanged in last several days; currently on 7L O2, continue trying to wean off as tolerated. - changed to meropenem 06/24 and plan ertapenem to complete 4 wk IV ABX per ID; end date 07/12; midline placed 06/24; - developed rash to meropenem therefore meropenem discontinued and patient placed on Levaquin iv 750mg on 07/05 and started on IV Diflucan 07/08 for shirlene albican in sputum s/p bronchoscopy on 07/11 showing copious amount of thin secretions bilaterally , Normal bronchial mucosa noted underneath. No endobronchial lesions noted. Routine bronchial washing cultures showed no growth , fungal cultures preliminary no growth, acid-fast bacilli smear and culture pending , pathology negative for malignancy Repeat chest x-ray 07/15 showed persistent extensive airspace opacity in right mid to lower lung salt and entire left lung as seen previously compatible with pneumonia, air-fluid levels in the left lower lobe compatible with abscess formation Patient noted to have worsening WBC , intermittent episodes of worsening shortness of breath, consulted thoracic surgery Dr. Gee recommends lobectomy Will discuss antibiotic choice with ID drug rash likely due to meropenem - improved, s/p iv Solu Medrol hypoNa - resolved after fluid restriction, urea, and NaCl IV and tabs; diarrhea - Cdiff and GI panel negative; diarrhea resolved likely due to antibiotics erythrocytosis - likely secondary to hypoxia from COPD, chronic smoking , hematocrit trending up, avoid hypoxia,and dehydration. Seen by Hematology they recommended therapeutic phlebotomy. GERD - PPI, Maalox tobacco abuse - NRT, counseling done VTE ppx - enoxaparin dispo - PT evaluation: IPR recommended, being followed daily by PT Quality Stroke Does the patient have a stroke diagnosis?: No VTE Prior VTE?: No VTE Risk Level:: Medical - moderate - high VTE Device Contraindication: Treatment Not Indicated VTE Drug Contraindication: N/A - Med Ordered
--- NOTE | 2024-07-16 10:19 | PM.PNTS ---
Subjective Subjective Date of Service: 07/16/24 <Zenaida Meza PA-C - Last Filed: 07/16/24 10:30> 07/16/24 <Kuldeep Gee MD - Last Filed: 07/16/24 12:27> Interval history: Continues to feel SOB with minimal exertion, copious secretions. O2 sats low 90s on 7L oxymizer. <Zenaida Meza PA-C - Last Filed: 07/16/24 10:30> Physical Exam Vital Signs: Vital Signs: Last Vital Signs Temp 97.6 F 07/16/24 07:15 Pulse 91 07/16/24 07:15 Resp 20 07/16/24 07:15 BP 111/73 07/16/24 07:15 Pulse Ox 93 07/16/24 07:15 O2 Del Method Oxymizer 07/16/24 07:15 O2 Flow Rate 7 07/16/24 07:15 BMI result Body Mass Index 20.8 <Zenaida Meza PA-C - Last Filed: 07/16/24 10:30> Const: General: alert <Zenaida Meza PA-C - Last Filed: 07/16/24 10:30> Nutritional Appearance: thin <YEN Marks Last Filed: 07/16/24 10:30> Orientation/consciousness: patient oriented x3 <Zenaida Meza PA-C - Last Filed: 07/16/24 10:30> Chest: Chest palpation & inspection: normal inspection of the chest <Zenaida Meza PA-C - Last Filed: 07/16/24 10:30> Resp: Effort & Inspection: normal respiratory effort, able to speak in complete sentences, not labored, no respiratory distress and not tachypneic <YEN Marks Last Filed: 07/16/24 10:30> Skin: General skin exam: no rashes or lesions noted <YEN Marks Last Filed: 07/16/24 10:30> Neuro: General: patient oriented x3 and moves all extremities <YEN Marks Last Filed: 07/16/24 10:30> Procedures Date of Service Date of Service: 07/16/24 <Zenaida Meza PA-C - Last Filed: 07/16/24 10:30> 07/16/24 <Kuldeep Gee MD - Last Filed: 07/16/24 12:27> Progress Note: A&P Assessment and plan (1) Acute hypoxic respiratory failure: Status: Acute <Zenaida Meza PA-C - Last Filed: 07/16/24 10:30> (2) Abscess of lung with pneumonia: Status: Acute <Zenaida Meza PA-C - Last Filed: 07/16/24 10:30> Assessment and Plan: 59 year old male with no known PMH however no PCP f/u for past 5 yrs, 45 pack-year smoking history admitted with hypoxia and sepsis due to multifocal pneumonia with LLL abscesses/cavitating lesion, failed medical management. Recommended to proceed with left thoracotomy, possible left lower lobectomy, with definitive procedure dependent on operative findings. Technique of the procedure, risks and benefits discussed including bleeding, infection, injury to surrounding structures including the heart, surrounding vasculature, nerves. He is in agreement. Discussed post operative course. He has been added onto the OR schedule for Saturday. Patient agrees with plan, all questions answered. <Zenaida Meza PA-C - Last Filed: 07/16/24 10:30> 59 year old male with no known PMH however no PCP f/u for past 5 yrs, 45 pack-year smoking history admitted with hypoxia and sepsis due to multifocal pneumonia with LLL abscesses/cavitating lesion, failed medical management. Recommended to proceed with left thoracotomy, possible left lower lobectomy, with definitive procedure dependent on operative findings. Technique of the procedure, risks and benefits discussed including bleeding, infection, injury to surrounding structures including the heart, surrounding vasculature, nerves. He is in agreement. Discussed post operative course. He has been added onto the OR schedule for tomorrow (Saturday) . Patient agrees with plan, all questions answered. As noted above <Kuldeep Gee MD - Last Filed: 07/16/24 12:27> Time Spent With Patient Time: Total time managing care of this patient today ____ minutes. <Zenaida Meza PA-C - Last Filed: 07/16/24 10:30> Quality Stroke Does the patient have a stroke diagnosis?: No <Zenaida Meza PA-C - Last Filed: 07/16/24 10:30> VTE Prior VTE?: No <Zenaida Meza PA-C - Last Filed: 07/16/24 10:30> VTE Risk Level:: Medical - moderate - high <Zenaida Meza PA-C - Last Filed: 07/16/24 10:30> VTE Device Contraindication: Treatment Not Indicated <Zenaida Meza PA-C - Last Filed: 07/16/24 10:30> VTE Drug Contraindication: N/A - Med Ordered <Zenaida Meza PA-C - Last Filed: 07/16/24 10:30>
[2024-07-16] MEDS: Heparin Sodium,Porcine Flush 50 UNITS, 0.9 % Sodium Chloride Flush 5 ML IVFLUSH (10:52)
[2024-07-16] MEDS: 0.9 % Sodium Chloride 1,000 ML 100 ML IVCONT (13:05)
[2024-07-16] MEDS: Fluconazole in NaCl,Iso-Osm 400 MG/200 ML PIGGYBACK 100 MG IV (13:31)
[2024-07-16 15:07] VITALS: BP 115/72; PULSE 89; RESP 18; TEMP 36.3; O2SAT 93
[2024-07-16] MEDS: Sodium Chloride Tab 1 GM TABLET PO ×2 (16:13→20:38)
[2024-07-16] MEDS: Enoxaparin Sodium 40 MG/0.4 ML SYRINGE SUBCUT (16:15)
[2024-07-16] MEDS: Albuterol/Iprat 2.5/0.5MG 3 ML AMPUL.NEB INHALE (18:37)
[2024-07-16 19:23] VITALS: BP 111/67; PULSE 97; RESP 18; TEMP 36.7; O2SAT 91
[2024-07-17] VITALS (31 sets, daily range): BP systolic 78–117; BP diastolic 47–80; PULSE 60–89; RESP 13–25; TEMP 34.8–36.6; O2SAT 90–99
[2024-07-17] MEDS: Throat Lozenge, Medicated LOZENGE 1 LOZENGE MUCOUS MEM (00:02)
--- NOTE | 2024-07-17 06:18 | PC.NURSE ---
0615- patient transported to [facility] for planned procedure via wheelchair. Patient washed up, oxygen in place with portable tank, NPO since midnight, report given to [facility]SS RN. Pt awake, alert, and agreeable to transport/procedure.
--- NOTE | 2024-07-17 07:23 | P.CONAN_ITS ---
HPI - Anesthesia Eval Consult details Narrative: 59 yo M presenting for left open thoracotomy and left lower lobectomy. Currently 90-91% on 7L/min Oxymizer PMFSH Active Problems Active Problems: All Active Problems Hyponatremia (Acute) Erythrocytosis due to hypoxemia (Chronic) Pneumonia (Acute) Acute hypoxic respiratory failure (Acute) Abscess of lung with pneumonia (Acute) Hypoxia (Acute) Acute respiratory disease (Acute) Wheezing on auscultation (Acute) Cough (Acute) Past Medical History Medical History Acute respiratory disease Wheezing on auscultation Cough Family History Family History Father Lung cancer Mother Unknown family medical history Family history of problems with anesthesia: No Surgical History History of Problems with Anesthesia: No Social History Social History Household Members: Family Household Members Other:: mother and disabled brother Housing: Apartment Do you presently have visiting nurse or other home services: Yes Alcohol intake: former Patient Tobacco Use Status: Former Tobacco user Tobacco use type: Cigarette e-Cigarette/Vaping Use: Never Used Second Hand Smoke Exposure: No service: No Meds Allergies Allergy/AdvReac Type Severity Reaction Status Date / Time amoxicillin Allergy Intermediate Rash Verified 07/17/24 06:35 penicillin G Allergy Intermediate Rash Verified 07/17/24 06:35 penicillin V Allergy Intermediate Rash Verified 07/17/24 06:35 Penicillins [PENICILLINS] Allergy Intermediate Rash Verified 07/17/24 06:35 tomato Allergy Intermediate Rash Verified 07/17/24 06:35 clindamycin Allergy Intermediate rash Uncoded 07/05/24 07:24 Active Medications: Current Medications Acetaminophen (Acetaminophen 325 Mg Tablet) 650 mg PO Q6H PRN PRN Reason: Pain, Mild 1-3,fever,headache Al Hydroxide/Mg Hydroxide (Magnesium Hydrox/Alum Hydrox 30 Ml Oral.Susp) 30 ml PO Q6H PRN PRN Reason: heartburn Last Admin: 06/22/24 04:26 Dose: 30 ml Albuterol/Ipratropium (Albuterol/Iprat 2.5/0.5mg 3 Ml Ampul.Neb) 3 ml INHALE Q4H PRN PRN Reason: Wheezing Last Admin: 07/16/24 18:37 Dose: 3 ml Benzocaine (Throat Lozenge, Medicated Lozenge) 1 lozenge MUCOUS MEM Q2H PRN PRN Reason: Sore Throat Last Admin: 07/17/24 00:02 Dose: 1 lozenge Benzonatate (Benzonatate 100 Mg Capsule) 200 mg PO TID PRN PRN Reason: Cough Last Admin: 07/15/24 18:10 Dose: 200 mg Calcium Carbonate (Calcium Carbonate 750 Mg Tab.Chew) 750 mg PO Q4H PRN PRN Reason: Heartburn Last Admin: 06/22/24 09:47 Dose: 750 mg Heparin Sodium (Porcine) 50 (units/ Sodium Chloride 5 ml) 0 units IVFLUSH TID CRISTINE Last Admin: 07/16/24 20:37 Dose: Not Given Diphenhydramine HCl (Diphenhydramine Hcl 25 Mg Capsule) 25 mg PO Q6H PRN PRN Reason: Rash Last Admin: 07/06/24 15:21 Dose: 25 mg Enoxaparin Sodium (Enoxaparin Sodium 40 Mg/0.4 Ml Syringe) 40 mg SUBCUT Q24H [facility] Last Admin: 07/16/24 16:15 Dose: 40 mg Guaifenesin (Guaifenesin 200 Mg/10 Ml 10 Ml Liquid) 10 ml PO Q6H PRN PRN Reason: Cough Last Admin: 07/16/24 02:30 Dose: 10 ml Guaifenesin/Dextromethorphan (Guaifenesin Dm 200/20/10 Ml 10 Ml Syrup) 10 ml PO QID PRN PRN Reason: Cough Last Admin: 07/16/24 16:45 Dose: 10 ml Levofloxacin (Levaquin) 750 mg in 150 mls @ 100 mls/hr IV Q24H [facility] Last Infusion: 07/16/24 11:26 Dose: Infused Fluconazole (Diflucan) 400 mg in 200 mls @ 100 mls/hr IV Q24H [facility] Last Infusion: 07/16/24 15:44 Dose: Infused Loperamide HCl (Loperamide Hcl 2 Mg Capsule) 4 mg PO Q4H PRN PRN Reason: Diarrhea Magnesium Hydroxide (Milk Of Magnesia 30 Ml Oral.Susp) 30 ml PO DAILY PRN PRN Reason: Constipation Melatonin (Melatonin 3 Mg Tablet) 6 mg PO BEDTIME PRN PRN Reason: Insomnia Naloxone HCl (Naloxone Hcl 0.4 Mg/Ml Vial) 0.04 mg IVPUSH Q5M PRN PRN Reason: Excessive sedation or RR < 8 Nicotine Polacrilex (Nicotine Polacrilex Lozenge 2 Mg Lozenge) 2 mg BUCCAL Q2H PRN PRN Reason: Nicotine Cravings Omeprazole (Omeprazole 20 Mg Capsule.Dr) 20 mg PO BID@0630,1630 [facility] Last Admin: 07/17/24 06:14 Dose: Not Given Ondansetron HCl (Ondansetron Hcl 4 Mg/2 Ml Vial) 4 mg IVPUSH Q8H PRN PRN Reason: Nausea and Vomiting Last Admin: 06/22/24 19:52 Dose: 4 mg Sodium Chloride (0.9 % Sodium Chloride Flush 3 Ml Syringe) 3 ml IVFLUSH QSHIFT [facility] Last Admin: 07/16/24 23:21 Dose: Not Given Home Medications ?Medication ?Instructions ?Recorded ?Confirmed ?Last Taken ?Type albuterol sulfate 90 mcg/actuation 2 puff inhalation Q6H PRN 06/14/24 06/14/24 Unknown History aerosol inhaler shortness of breath or wheezing ibuprofen 400 mg tablet 400 mg PO Q8H PRN Pain 06/14/24 06/14/24 Unknown History Exam Exam Date and Time: 07/17/24 0708 Height,Weight and Vital Signs: Height 5 ft 10 in Weight 65.8 kg Last Vital Signs Temp 96.9 F 07/17/24 06:29 Pulse 89 07/17/24 06:29 Resp 25 H 07/17/24 06:29 BP 113/80 07/17/24 06:29 Pulse Ox 90 L 07/17/24 06:29 O2 Del Method Nasal Cannula 07/17/24 06:29 O2 Flow Rate 7 07/17/24 06:29 Pertinent Lab Results Pertinent Lab Results: Laboratory Tests 06/14/24 06/14/24 06/14/24 11:04 11:10 11:20 WBC 12.2 H RBC 6.69 H Hgb 20.8 H Hct 60.5 H MCV 90.4 MCH 31.1 MCHC 34.4 RDW 13.5 Plt Count 283 MPV 9.4 Immature Gran % (Auto) 0.7 H Neut % (Auto) 72.5 Lymph % (Auto) 16.5 L [place] % (Auto) 7.5 Eos % (Auto) 2.0 Baso % (Auto) 0.8 Lymph # (Auto) 2.0 [place] # (Auto) 0.9 Eos # (Auto) 0.2 Baso # (Auto) 0.1 Abs Immat Gran (auto) 0.08 H Absolute Neuts (auto) 8.9 H Absolute Nucleated RBC 0.000 Nucleated RBC % (auto) 0.0 Smear Tech's Comments Smear Path Review SEE NOTE Hold Purple Top VBG pH 7.34 VBG pCO2 50 VBG pO2 40 VBG HCO3 27 H VBG O2 Saturation 62.0 VBG Base Excess 0.4 Sodium 140 Potassium 4.4 Chloride 103 Carbon Dioxide 25 Anion Gap 16 BUN 14 Creatinine 0.80 Estim Creat Clear Calc 91.3 Estimated GFR > 60 Random Glucose 102 Fasting Glucose Osmolality Lactic Acid 1.1 Calcium 9.5 Magnesium 1.9 Erythropoietin Total Bilirubin 0.8 Direct Bilirubin 0.3 AST 23 ALT 16 Alkaline Phosphatase 113 Troponin I High Sens 4.7 C-Reactive Protein 2.97 H B-Natriuretic Peptide 50 Total Protein 7.6 Albumin 3.9 Procalcitonin 0.07 TSH Free T4 Random Cortisol Urine Color Urine Appearance Urine pH Ur Specific [place] Urine Protein Urine Glucose (UA) Urine Ketones Urine Blood Urine Nitrite Ur Leukocyte Esterase Ur Random Sodium Urine Creatinine Nasal Screen MRSA (PCR) Nasal S. aureus Screen Nasal MRSA/S.aureus Interp Stl C. cayetanensis PCR Stool Rotavirus A PCR Stl Adenov F 40/41 PCR Stool Astrovirus (PCR) Stool Campylobacter PCR Stool Cryptosporidium PCR Stl Sh Tox Pr E STEC PCR Stool E coli O157 PCR Stl Enterotoxigenic E PCR Stool EPEC (PCR) Stool EAEC (PCR) Stl E. histolytica PCR Stool Giardia Lamblia PCR Stl P. shigelloides PCR Stool Salmonella PCR Stool Sapovirus (PCR) Stl Shigella/EIEC PCR St Y.enterocolitica PCR Stool Vibrio (PCR) Stl Vibrio cholerae PCR Stl Norovirus GI/GII PCR Random Vancomycin Respiratory Panel [place] Adenovirus (Rapid PCR) B.pert (TEM-PCR) B.parapertussis DNA PCR C. pneumoniae DNA (PCR) C. difficile Tox B Gene Coronavirus OC43 (PCR) Coronavirus HKU1 (PCR) Coronavirus 229E (PCR) Coronavirus NL63 (PCR) Hepatitis A IgM Ab Hep Bs Antigen Hep Bs Antibody Hep B Core Total Ab Hepatitis C Ab (EIA) HIV 1&2 Ab/P24 Ag 4thGn Human Metapneumovir PCR Influenza A (RT-PCR) Influenza A (H1) PCR Influ A (H1/) PCR Influenza A (H3) PCR Influenza Type A (PCR) NEGATIVE Influenza B (RT-PCR) Influenza Type B (PCR) NEGATIVE Ur L.pneumophila Ag M.tuberculosis DNA (PCR) MTB Rifampin Resis PCR M. pneumoniae (PCR) Parainfluenza 1 (PCR) Parainfluenza 2 (PCR) Parainfluenza 3 (PCR) Parainfluenza 4 (PCR) RSV (PCR) RSV RNA Qual (PCR) NEGATIVE Entero/Rhino (PCR) SARS-CoV-2 RNA (RT-PCR) NEGATIVE TB Test (T-Spot) Com TB Test Nil Control TB Test Panel A TB Test Panel B TB Test Positive Cntrl Blood Type Antibody Screen Crossmatch Pre Ther Phlebot Hgb Pre Ther Phlebot Hct Therapeutic Phlebotomy 06/15/24 06/15/24 06/15/24 06:00 07:14 15:21 WBC 15.1 H RBC 5.67 Hgb 17.3 Hct 52.2 H MCV 92.1 MCH 30.5 MCHC 33.1 RDW 13.2 Plt Count 236 MPV 9.6 Immature Gran % (Auto) 0.5 H Neut % (Auto) 79.8 H Lymph % (Auto) 12.0 L [place] % (Auto) 6.8 Eos % (Auto) 0.4 Baso % (Auto) 0.5 Lymph # (Auto) 1.8 [place] # (Auto) 1.0 Eos # (Auto) 0.1 Baso # (Auto) 0.1 Abs Immat Gran (auto) 0.07 H Absolute Neuts (auto) 12.1 H Absolute Nucleated RBC 0.000 Nucleated RBC % (auto) 0.0 Smear Tech's Comments Smear Path Review Hold Purple Top VBG pH VBG pCO2 VBG pO2 VBG HCO3 VBG O2 Saturation VBG Base Excess Sodium Potassium Chloride Carbon Dioxide Anion Gap BUN Creatinine 0.64 Estim Creat Clear Calc 114.2 Estimated GFR > 60 Random Glucose Fasting Glucose Osmolality Lactic Acid Calcium Magnesium Erythropoietin Total Bilirubin Direct Bilirubin AST ALT Alkaline Phosphatase Troponin I High Sens C-Reactive Protein B-Natriuretic Peptide Total Protein Albumin Procalcitonin TSH Free T4 Random Cortisol Urine Color Yellow Urine Appearance Clear Urine pH 5.5 Ur Specific [place] >= 1.030 H Urine Protein Negative Urine Glucose (UA) Negative Urine Ketones Negative Urine Blood Negative Urine Nitrite Negative Ur Leukocyte Esterase Negative Ur Random Sodium Urine Creatinine Nasal Screen MRSA (PCR) Nasal S. aureus Screen Nasal MRSA/S.aureus Interp Stl C. cayetanensis PCR Stool Rotavirus A PCR Stl Adenov F 40/41 PCR Stool Astrovirus (PCR) Stool Campylobacter PCR Stool Cryptosporidium PCR Stl Sh Tox Pr E STEC PCR Stool E coli O157 PCR Stl Enterotoxigenic E PCR Stool EPEC (PCR) Stool EAEC (PCR) Stl E. histolytica PCR Stool Giardia Lamblia PCR Stl P. shigelloides PCR Stool Salmonella PCR Stool Sapovirus (PCR) Stl Shigella/EIEC PCR St Y.enterocolitica PCR Stool Vibrio (PCR) Stl Vibrio cholerae PCR Stl Norovirus GI/GII PCR Random Vancomycin 11.2 L Respiratory Panel [place] Adenovirus (Rapid PCR) B.pert (TEM-PCR) B.parapertussis DNA PCR C. pneumoniae DNA (PCR) C. difficile Tox B Gene Coronavirus OC43 (PCR) Coronavirus HKU1 (PCR) Coronavirus 229E (PCR) Coronavirus NL63 (PCR) Hepatitis A IgM Ab Nonreactive Hep Bs Antigen Negative Hep Bs Antibody NONREACTIVE Hep B Core Total Ab Nonreactive Hepatitis C Ab (EIA) Nonreactive HIV 1&2 Ab/P24 Ag 4thGn Nonreactive Human Metapneumovir PCR Influenza A (RT-PCR) Influenza A (H1) PCR Influ A (H1/09) PCR Influenza A (H3) PCR Influenza Type A (PCR) Influenza B (RT-PCR) Influenza Type B (PCR) Ur L.pneumophila Ag M.tuberculosis DNA (PCR) MTB Rifampin Resis PCR M. pneumoniae (PCR) Parainfluenza 1 (PCR) Parainfluenza 2 (PCR) Parainfluenza 3 (PCR) Parainfluenza 4 (PCR) RSV (PCR) RSV RNA Qual (PCR) Entero/Rhino (PCR) SARS-CoV-2 RNA (RT-PCR) TB Test (T-Spot) Com TB Test Nil Control TB Test Panel A TB Test Panel B TB Test Positive Cntrl Blood Type Antibody Screen Crossmatch Pre Ther Phlebot Hgb Pre Ther Phlebot Hct Therapeutic Phlebotomy 06/16/24 06/16/24 06/16/24 06:26 10:18 10:25 WBC RBC Hgb Hct MCV MCH MCHC RDW Plt Count MPV Immature Gran % (Auto) Neut % (Auto) Lymph % (Auto) [place] % (Auto) Eos % (Auto) Baso % (Auto) Lymph # (Auto) [place] # (Auto) Eos # (Auto) Baso # (Auto) Abs Immat Gran (auto) Absolute Neuts (auto) Absolute Nucleated RBC Nucleated RBC % (auto) Smear Tech's Comments Smear Path Review Hold Purple Top SEE NOTE VBG pH VBG pCO2 VBG pO2 VBG HCO3 VBG O2 Saturation VBG Base Excess Sodium Potassium Chloride Carbon Dioxide Anion Gap BUN Creatinine 0.72 Estim Creat Clear Calc 101.5 Estimated GFR > 60 Random Glucose Fasting Glucose Osmolality Lactic Acid Calcium Magnesium Erythropoietin Total Bilirubin Direct Bilirubin AST ALT Alkaline Phosphatase Troponin I High Sens C-Reactive Protein B-Natriuretic Peptide Total Protein Albumin Procalcitonin TSH Free T4 Random Cortisol Urine Color Urine Appearance Urine pH Ur Specific [place] Urine Protein Urine Glucose (UA) Urine Ketones Urine Blood Urine Nitrite Ur Leukocyte Esterase Ur Random Sodium Urine Creatinine Nasal Screen MRSA (PCR) Nasal S. aureus Screen Nasal MRSA/S.aureus Interp Stl C. cayetanensis PCR Stool Rotavirus A PCR Stl Adenov F 40/41 PCR Stool Astrovirus (PCR) Stool Campylobacter PCR Stool Cryptosporidium PCR Stl Sh Tox Pr E STEC PCR Stool E coli O157 PCR Stl Enterotoxigenic E PCR Stool EPEC (PCR) Stool EAEC (PCR) Stl E. histolytica PCR Stool Giardia Lamblia PCR Stl P. shigelloides PCR Stool Salmonella PCR Stool Sapovirus (PCR) Stl Shigella/EIEC PCR St Y.enterocolitica PCR Stool Vibrio (PCR) Stl Vibrio cholerae PCR Stl Norovirus GI/GII PCR Random Vancomycin Respiratory Panel [place] Adenovirus (Rapid PCR) B.pert (TEM-PCR) B.parapertussis DNA PCR C. pneumoniae DNA (PCR) C. difficile Tox B Gene Coronavirus OC43 (PCR) Coronavirus HKU1 (PCR) Coronavirus 229E (PCR) Coronavirus NL63 (PCR) Hepatitis A IgM Ab Hep Bs Antigen Hep Bs Antibody Hep B Core Total Ab Hepatitis C Ab (EIA) HIV 1&2 Ab/P24 Ag 4thGn Human Metapneumovir PCR Influenza A (RT-PCR) Influenza A (H1) PCR Influ A (H1/09) PCR Influenza A (H3) PCR Influenza Type A (PCR) Influenza B (RT-PCR) Influenza Type B (PCR) Ur L.pneumophila Ag M.tuberculosis DNA (PCR) NOT DETECTED MTB Rifampin Resis PCR NOT TESTED M. pneumoniae (PCR) Parainfluenza 1 (PCR) Parainfluenza 2 (PCR) Parainfluenza 3 (PCR) Parainfluenza 4 (PCR) RSV (PCR) RSV RNA Qual (PCR) Entero/Rhino (PCR) SARS-CoV-2 RNA (RT-PCR) TB Test (T-Spot) Com Negative TB Test Nil Control Passed TB Test Panel A 0 TB Test Panel B 0 TB Test Positive Cntrl Passed Blood Type Antibody Screen Crossmatch Pre Ther Phlebot Hgb Pre Ther Phlebot Hct Therapeutic Phlebotomy 06/16/24 06/17/24 06/17/24 15:11 05:56 07:20 WBC 11.3 H RBC 6.11 H Hgb 18.6 H Hct 56.8 H MCV 93.0 MCH 30.4 MCHC 32.7 RDW 13.5 Plt Count 258 MPV 9.1 L Immature Gran % (Auto) 0.6 H Neut % (Auto) 73.6 H Lymph % (Auto) 15.3 L [place] % (Auto) 7.1 Eos % (Auto) 2.7 Baso % (Auto) 0.7 Lymph # (Auto) 1.7 [place] # (Auto) 0.8 Eos # (Auto) 0.3 Baso # (Auto) 0.1 Abs Immat Gran (auto) 0.07 H Absolute Neuts (auto) 8.3 Absolute Nucleated RBC 0.000 Nucleated RBC % (auto) 0.0 Smear Tech's Comments Smear Path Review Hold Purple Top VBG pH VBG pCO2 VBG pO2 VBG HCO3 VBG O2 Saturation VBG Base Excess Sodium 140 Potassium 4.1 Chloride 107 Carbon Dioxide 25 Anion Gap 12 BUN 12 Creatinine 0.72 Estim Creat Clear Calc 101.5 Estimated GFR > 60 Random Glucose 89 Fasting Glucose Osmolality Lactic Acid Calcium 8.7 D Magnesium Erythropoietin Total Bilirubin Direct Bilirubin AST ALT Alkaline Phosphatase Troponin I High Sens C-Reactive Protein B-Natriuretic Peptide Total Protein Albumin Procalcitonin TSH Free T4 Random Cortisol Urine Color Urine Appearance Urine pH Ur Specific [place] Urine Protein Urine Glucose (UA) Urine Ketones Urine Blood Urine Nitrite Ur Leukocyte Esterase Ur Random Sodium Urine Creatinine Nasal Screen MRSA (PCR) NEGATIVE Nasal S. aureus Screen NEGATIVE Nasal MRSA/S.aureus Interp SEE NOTE Stl C. cayetanensis PCR Stool Rotavirus A PCR Stl Adenov F 40/41 PCR Stool Astrovirus (PCR) Stool Campylobacter PCR Stool Cryptosporidium PCR Stl Sh Tox Pr E STEC PCR Stool E coli O157 PCR Stl Enterotoxigenic E PCR Stool EPEC (PCR) Stool EAEC (PCR) Stl E. histolytica PCR Stool Giardia Lamblia PCR Stl P. shigelloides PCR Stool Salmonella PCR Stool Sapovirus (PCR) Stl Shigella/EIEC PCR St Y.enterocolitica PCR Stool Vibrio (PCR) Stl Vibrio cholerae PCR Stl Norovirus GI/GII PCR Random Vancomycin 19.8 Respiratory Panel [place] Adenovirus (Rapid PCR) B.pert (TEM-PCR) B.parapertussis DNA PCR C. pneumoniae DNA (PCR) C. difficile Tox B Gene Coronavirus OC43 (PCR) Coronavirus HKU1 (PCR) Coronavirus 229E (PCR) Coronavirus NL63 (PCR) Hepatitis A IgM Ab Hep Bs Antigen Hep Bs Antibody Hep B Core Total Ab Hepatitis C Ab (EIA) HIV 1&2 Ab/P24 Ag 4thGn Human Metapneumovir PCR Influenza A (RT-PCR) Influenza A (H1) PCR Influ A (H1/09) PCR Influenza A (H3) PCR Influenza Type A (PCR) Influenza B (RT-PCR) Influenza Type B (PCR) Ur L.pneumophila Ag M.tuberculosis DNA (PCR) MTB Rifampin Resis PCR M. pneumoniae (PCR) Parainfluenza 1 (PCR) Parainfluenza 2 (PCR) Parainfluenza 3 (PCR) Parainfluenza 4 (PCR) RSV (PCR) RSV RNA Qual (PCR) Entero/Rhino (PCR) SARS-CoV-2 RNA (RT-PCR) TB Test (T-Spot) Com TB Test Nil Control TB Test Panel A TB Test Panel B TB Test Positive Cntrl Blood Type Antibody Screen Crossmatch Pre Ther Phlebot Hgb Pre Ther Phlebot Hct Therapeutic Phlebotomy 06/17/24 06/17/24 06/18/24 11:06 14:57 05:57 WBC RBC Hgb Hct MCV MCH MCHC RDW Plt Count MPV Immature Gran % (Auto) Neut % (Auto) Lymph % (Auto) [place] % (Auto) Eos % (Auto) Baso % (Auto) Lymph # (Auto) [place] # (Auto) Eos # (Auto) Baso # (Auto) Abs Immat Gran (auto) Absolute Neuts (auto) Absolute Nucleated RBC Nucleated RBC % (auto) Smear Tech's Comments Smear Path Review Hold Purple Top VBG pH VBG pCO2 VBG pO2 VBG HCO3 VBG O2 Saturation VBG Base Excess Sodium Potassium Chloride Carbon Dioxide Anion Gap BUN Creatinine 0.70 Estim Creat Clear Calc 104.4 Estimated GFR > 60 Random Glucose Fasting Glucose Osmolality Lactic Acid Calcium Magnesium Erythropoietin Total Bilirubin Direct Bilirubin AST ALT Alkaline Phosphatase Troponin I High Sens C-Reactive Protein B-Natriuretic Peptide Total Protein Albumin Procalcitonin TSH Free T4 Random Cortisol Urine Color Urine Appearance Urine pH Ur Specific [place] Urine Protein Urine Glucose (UA) Urine Ketones Urine Blood Urine Nitrite Ur Leukocyte Esterase Ur Random Sodium Urine Creatinine Nasal Screen MRSA (PCR) Nasal S. aureus Screen Nasal MRSA/S.aureus Interp Stl C. cayetanensis PCR Stool Rotavirus A PCR Stl Adenov F 40/41 PCR Stool Astrovirus (PCR) Stool Campylobacter PCR Stool Cryptosporidium PCR Stl Sh Tox Pr E STEC PCR Stool E coli O157 PCR Stl Enterotoxigenic E PCR Stool EPEC (PCR) Stool EAEC (PCR) Stl E. histolytica PCR Stool Giardia Lamblia PCR Stl P. shigelloides PCR Stool Salmonella PCR Stool Sapovirus (PCR) Stl Shigella/EIEC PCR St Y.enterocolitica PCR Stool Vibrio (PCR) Stl Vibrio cholerae PCR Stl Norovirus GI/GII PCR Random Vancomycin 14.8 L Respiratory Panel [place] Adenovirus (Rapid PCR) B.pert (TEM-PCR) B.parapertussis DNA PCR C. pneumoniae DNA (PCR) C. difficile Tox B Gene Coronavirus OC43 (PCR) Coronavirus HKU1 (PCR) Coronavirus 229E (PCR) Coronavirus NL63 (PCR) Hepatitis A IgM Ab Hep Bs Antigen Hep Bs Antibody Hep B Core Total Ab Hepatitis C Ab (EIA) HIV 1&2 Ab/P24 Ag 4thGn Human Metapneumovir PCR Influenza A (RT-PCR) Influenza A (H1) PCR Influ A (H1/09) PCR Influenza A (H3) PCR Influenza Type A (PCR) Influenza B (RT-PCR) Influenza Type B (PCR) Ur L.pneumophila Ag Not Detected M.tuberculosis DNA (PCR) MTB Rifampin Resis PCR M. pneumoniae (PCR) Parainfluenza 1 (PCR) Parainfluenza 2 (PCR) Parainfluenza 3 (PCR) Parainfluenza 4 (PCR) RSV (PCR) RSV RNA Qual (PCR) Entero/Rhino (PCR) SARS-CoV-2 RNA (RT-PCR) TB Test (T-Spot) Com TB Test Nil Control TB Test Panel A TB Test Panel B TB Test Positive Cntrl Blood Type Antibody Screen Crossmatch Pre Ther Phlebot Hgb Pre Ther Phlebot Hct Therapeutic Phlebotomy 06/19/24 06/19/24 06/22/24 05:40 14:12 09:13 WBC 13.7 H 11.7 H RBC 6.39 H 6.32 H Hgb 19.3 H 19.4 H Hct 59.0 H 57.7 H MCV 92.3 91.3 MCH 30.2 30.7 MCHC 32.7 33.6 RDW 13.5 12.9 Plt Count 248 260 MPV 9.0 L 9.5 Immature Gran % (Auto) 0.6 H Neut % (Auto) 81.2 H Lymph % (Auto) 8.7 L [place] % (Auto) 6.8 Eos % (Auto) 1.9 Baso % (Auto) 0.8 Lymph # (Auto) 1.2 [place] # (Auto) 0.9 Eos # (Auto) 0.3 Baso # (Auto) 0.1 Abs Immat Gran (auto) 0.08 H Absolute Neuts (auto) 11.1 H Absolute Nucleated RBC 0.000 0.000 Nucleated RBC % (auto) 0.0 0.0 Smear Tech's Comments Smear Path Review Hold Purple Top VBG pH VBG pCO2 VBG pO2 VBG HCO3 VBG O2 Saturation VBG Base Excess Sodium 137 136 Potassium 4.0 3.7 Chloride 104 100 Carbon Dioxide 22 24 Anion Gap 15 16 BUN 12 12 Creatinine 0.74 0.79 Estim Creat Clear Calc 98.7 92.5 Estimated GFR > 60 > 60 Random Glucose 107 107 Fasting Glucose Osmolality Lactic Acid Calcium 9.3 D 9.0 Magnesium Erythropoietin 4.3 Total Bilirubin Direct Bilirubin AST ALT Alkaline Phosphatase Troponin I High Sens C-Reactive Protein B-Natriuretic Peptide Total Protein Albumin Procalcitonin 0.15 TSH Free T4 Random Cortisol Urine Color Urine Appearance Urine pH Ur Specific [place] Urine Protein Urine Glucose (UA) Urine Ketones Urine Blood Urine Nitrite Ur Leukocyte Esterase Ur Random Sodium Urine Creatinine Nasal Screen MRSA (PCR) Nasal S. aureus Screen Nasal MRSA/S.aureus Interp Stl C. cayetanensis PCR Stool Rotavirus A PCR Stl Adenov F 40/41 PCR Stool Astrovirus (PCR) Stool Campylobacter PCR Stool Cryptosporidium PCR Stl Sh Tox Pr E STEC PCR Stool E coli O157 PCR Stl Enterotoxigenic E PCR Stool EPEC (PCR) Stool EAEC (PCR) Stl E. histolytica PCR Stool Giardia Lamblia PCR Stl P. shigelloides PCR Stool Salmonella PCR Stool Sapovirus (PCR) Stl Shigella/EIEC PCR St Y.enterocolitica PCR Stool Vibrio (PCR) Stl Vibrio cholerae PCR Stl Norovirus GI/GII PCR Random Vancomycin Respiratory Panel [place] Adenovirus (Rapid PCR) B.pert (TEM-PCR) B.parapertussis DNA PCR C. pneumoniae DNA (PCR) C. difficile Tox B Gene Coronavirus OC43 (PCR) Coronavirus HKU1 (PCR) Coronavirus 229E (PCR) Coronavirus NL63 (PCR) Hepatitis A IgM Ab Hep Bs Antigen Hep Bs Antibody Hep B Core Total Ab Hepatitis C Ab (EIA) HIV 1&2 Ab/P24 Ag 4thGn Human Metapneumovir PCR Influenza A (RT-PCR) Influenza A (H1) PCR Influ A (H1/09) PCR Influenza A (H3) PCR Influenza Type A (PCR) Influenza B (RT-PCR) Influenza Type B (PCR) Ur L.pneumophila Ag M.tuberculosis DNA (PCR) MTB Rifampin Resis PCR M. pneumoniae (PCR) Parainfluenza 1 (PCR) Parainfluenza 2 (PCR) Parainfluenza 3 (PCR) Parainfluenza 4 (PCR) RSV (PCR) RSV RNA Qual (PCR) Entero/Rhino (PCR) SARS-CoV-2 RNA (RT-PCR) TB Test (T-Spot) Com TB Test Nil Control TB Test Panel A TB Test Panel B TB Test Positive Cntrl Blood Type Antibody Screen Crossmatch Pre Ther Phlebot Hgb Pre Ther Phlebot Hct Therapeutic Phlebotomy 06/23/24 06/24/24 06/26/24 09:00 07:06 05:56 WBC 12.6 H 13.2 H RBC 6.05 H 6.12 H Hgb 18.3 H 18.4 H Hct 54.4 H 53.6 H MCV 89.9 87.6 MCH 30.2 30.1 MCHC 33.6 34.3 RDW 12.7 12.6 Plt Count 274 354 D MPV 9.6 9.6 Immature Gran % (Auto) Neut % (Auto) Lymph % (Auto) [place] % (Auto) Eos % (Auto) Baso % (Auto) Lymph # (Auto) [place] # (Auto) Eos # (Auto) Baso # (Auto) Abs Immat Gran (auto) Absolute Neuts (auto) Absolute Nucleated RBC 0.000 0.000 Nucleated RBC % (auto) 0.0 0.0 Smear Tech's Comments Smear Path Review Hold Purple Top VBG pH VBG pCO2 VBG pO2 VBG HCO3 VBG O2 Saturation VBG Base Excess Sodium 132 L 129 L Potassium 4.0 3.5 Chloride 98 93 L Carbon Dioxide 24 25 Anion Gap 14 15 BUN 18 H 17 H Creatinine 0.78 0.79 Estim Creat Clear Calc 93.7 92.5 Estimated GFR > 60 > 60 Random Glucose 103 101 Fasting Glucose Osmolality Lactic Acid Calcium 9.4 9.5 Magnesium Erythropoietin Total Bilirubin 0.5 Direct Bilirubin AST 16 ALT 14 Alkaline Phosphatase 73 Troponin I High Sens C-Reactive Protein B-Natriuretic Peptide Total Protein 6.9 Albumin 3.6 Procalcitonin 0.27 0.13 TSH Free T4 Random Cortisol Urine Color Urine Appearance Urine pH Ur Specific [place] Urine Protein Urine Glucose (UA) Urine Ketones Urine Blood Urine Nitrite Ur Leukocyte Esterase Ur Random Sodium Urine Creatinine Nasal Screen MRSA (PCR) Nasal S. aureus Screen Nasal MRSA/S.aureus Interp Stl C. cayetanensis PCR Stool Rotavirus A PCR Stl Adenov F 40/41 PCR Stool Astrovirus (PCR) Stool Campylobacter PCR Stool Cryptosporidium PCR Stl Sh Tox Pr E STEC PCR Stool E coli O157 PCR Stl Enterotoxigenic E PCR Stool EPEC (PCR) Stool EAEC (PCR) Stl E. histolytica PCR Stool Giardia Lamblia PCR Stl P. shigelloides PCR Stool Salmonella PCR Stool Sapovirus (PCR) Stl Shigella/EIEC PCR St Y.enterocolitica PCR Stool Vibrio (PCR) Stl Vibrio cholerae PCR Stl Norovirus GI/GII PCR Random Vancomycin Respiratory Panel [place] Adenovirus (Rapid PCR) B.pert (TEM-PCR) B.parapertussis DNA PCR C. pneumoniae DNA (PCR) C. difficile Tox B Gene Coronavirus OC43 (PCR) Coronavirus HKU1 (PCR) Coronavirus 229E (PCR) Coronavirus NL63 (PCR) Hepatitis A IgM Ab Hep Bs Antigen Hep Bs Antibody Hep B Core Total Ab Hepatitis C Ab (EIA) HIV 1&2 Ab/P24 Ag 4thGn Human Metapneumovir PCR Influenza A (RT-PCR) Influenza A (H1) PCR Influ A (H1/09) PCR Influenza A (H3) PCR Influenza Type A (PCR) Influenza B (RT-PCR) Influenza Type B (PCR) Ur L.pneumophila Ag M.tuberculosis DNA (PCR) MTB Rifampin Resis PCR M. pneumoniae (PCR) Parainfluenza 1 (PCR) Parainfluenza 2 (PCR) Parainfluenza 3 (PCR) Parainfluenza 4 (PCR) RSV (PCR) RSV RNA Qual (PCR) Entero/Rhino (PCR) SARS-CoV-2 RNA (RT-PCR) TB Test (T-Spot) Com TB Test Nil Control TB Test Panel A TB Test Panel B TB Test Positive Cntrl Blood Type Antibody Screen Crossmatch Pre Ther Phlebot Hgb TNP Pre Ther Phlebot Hct TNP Therapeutic Phlebotomy Phlebotomy Performed 06/27/24 06/28/24 06/29/24 05:37 09:22 05:09 WBC 13.8 H 14.7 H 13.5 H RBC 6.26 H 6.35 H 6.41 H Hgb 19.2 H 19.4 H 19.3 H Hct 53.8 H 55.2 H 54.9 H MCV 85.9 86.9 85.6 MCH 30.7 30.6 30.1 MCHC 35.7 35.1 35.2 RDW 12.5 12.5 12.4 Plt Count 352 411 H 403 H MPV 9.7 9.2 L 9.5 Immature Gran % (Auto) 3.1 H 2.2 H 2.2 H Neut % (Auto) 73.8 H 73.5 H 72.7 Lymph % (Auto) 12.9 L 14.0 L 14.3 L [place] % (Auto) 7.3 7.6 8.0 Eos % (Auto) 2.0 1.7 1.9 Baso % (Auto) 0.9 1.0 0.9 Lymph # (Auto) 1.8 2.1 1.9 [place] # (Auto) 1.0 1.1 1.1 Eos # (Auto) 0.3 0.3 0.3 Baso # (Auto) 0.1 0.2 0.1 Abs Immat Gran (auto) 0.43 H 0.32 H 0.30 H Absolute Neuts (auto) 10.1 H 10.8 H 9.8 H Absolute Nucleated RBC 0.000 0.000 0.000 Nucleated RBC % (auto) 0.0 0.0 0.0 Smear Tech's Comments Smear Path Review Hold Purple Top VBG pH VBG pCO2 VBG pO2 VBG HCO3 VBG O2 Saturation VBG Base Excess Sodium 128 L 125 L 124 L Potassium 3.5 4.2 4.4 Chloride 89 L 89 L 85 L Carbon Dioxide 28 24 26 Anion Gap 15 16 17 BUN 17 H 19 H 17 H Creatinine 0.71 0.72 0.73 Estim Creat Clear Calc 102.9 101.5 100.1 Estimated GFR > 60 > 60 > 60 Random Glucose Fasting Glucose 101 H 117 H 107 H Osmolality 260 L Lactic Acid Calcium 9.7 9.5 9.5 Magnesium Erythropoietin Total Bilirubin 0.5 0.6 0.6 Direct Bilirubin AST 20 21 25 ALT 20 18 17 Alkaline Phosphatase 84 90 90 Troponin I High Sens C-Reactive Protein B-Natriuretic Peptide Total Protein 7.2 7.4 7.5 Albumin 3.7 3.8 3.7 Procalcitonin TSH Free T4 Random Cortisol Urine Color Urine Appearance Urine pH Ur Specific [place] Urine Protein Urine Glucose (UA) Urine Ketones Urine Blood Urine Nitrite Ur Leukocyte Esterase Ur Random Sodium Urine Creatinine Nasal Screen MRSA (PCR) Nasal S. aureus Screen Nasal MRSA/S.aureus Interp Stl C. cayetanensis PCR Stool Rotavirus A PCR Stl Adenov F 40/41 PCR Stool Astrovirus (PCR) Stool Campylobacter PCR Stool Cryptosporidium PCR Stl Sh Tox Pr E STEC PCR Stool E coli O157 PCR Stl Enterotoxigenic E PCR Stool EPEC (PCR) Stool EAEC (PCR) Stl E. histolytica PCR Stool Giardia Lamblia PCR Stl P. shigelloides PCR Stool Salmonella PCR Stool Sapovirus (PCR) Stl Shigella/EIEC PCR St Y.enterocolitica PCR Stool Vibrio (PCR) Stl Vibrio cholerae PCR Stl Norovirus GI/GII PCR Random Vancomycin Respiratory Panel [place] Adenovirus (Rapid PCR) B.pert (TEM-PCR) B.parapertussis DNA PCR C. pneumoniae DNA (PCR) C. difficile Tox B Gene Coronavirus OC43 (PCR) Coronavirus HKU1 (PCR) Coronavirus 229E (PCR) Coronavirus NL63 (PCR) Hepatitis A IgM Ab Hep Bs Antigen Hep Bs Antibody Hep B Core Total Ab Hepatitis C Ab (EIA) HIV 1&2 Ab/P24 Ag 4thGn Human Metapneumovir PCR Influenza A (RT-PCR) Influenza A (H1) PCR Influ A (H1/09) PCR Influenza A (H3) PCR Influenza Type A (PCR) Influenza B (RT-PCR) Influenza Type B (PCR) Ur L.pneumophila Ag M.tuberculosis DNA (PCR) MTB Rifampin Resis PCR M. pneumoniae (PCR) Parainfluenza 1 (PCR) Parainfluenza 2 (PCR) Parainfluenza 3 (PCR) Parainfluenza 4 (PCR) RSV (PCR) RSV RNA Qual (PCR) Entero/Rhino (PCR) SARS-CoV-2 RNA (RT-PCR) TB Test (T-Spot) Com TB Test Nil Control TB Test Panel A TB Test Panel B TB Test Positive Cntrl Blood Type Antibody Screen Crossmatch Pre Ther Phlebot Hgb Pre Ther Phlebot Hct Therapeutic Phlebotomy 06/29/24 06/30/24 07/01/24 15:15 05:34 05:17 WBC 14.1 H 16.3 H RBC 6.39 H 6.27 H Hgb 19.2 H 18.9 H Hct 54.4 H 54.0 H MCV 85.1 86.1 MCH 30.0 30.1 MCHC 35.3 35.0 RDW 12.2 12.3 Plt Count 402 H 384 MPV 9.0 L 9.4 Immature Gran % (Auto) 2.0 H 1.8 H Neut % (Auto) 74.7 H 74.9 H Lymph % (Auto) 13.7 L 13.5 L [place] % (Auto) 7.3 7.5 Eos % (Auto) 1.4 1.4 Baso % (Auto) 0.9 0.9 Lymph # (Auto) 1.9 2.2 [place] # (Auto) 1.0 1.2 Eos # (Auto) 0.2 0.2 Baso # (Auto) 0.1 0.2 Abs Immat Gran (auto) 0.28 H 0.29 H Absolute Neuts (auto) 10.5 H 12.2 H Absolute Nucleated RBC 0.000 0.000 Nucleated RBC % (auto) 0.0 0.0 Smear Tech's Comments Smear Path Review Hold Purple Top VBG pH VBG pCO2 VBG pO2 VBG HCO3 VBG O2 Saturation VBG Base Excess Sodium 124 L 124 L Potassium 4.2 4.5 Chloride 83 L 86 L Carbon Dioxide 27 27 Anion Gap 18 16 BUN 21 H 25 H Creatinine 0.73 0.72 Estim Creat Clear Calc 100.1 101.5 Estimated GFR > 60 > 60 Random Glucose Fasting Glucose 127 H 116 H Osmolality Lactic Acid Calcium 9.7 9.5 Magnesium Erythropoietin Total Bilirubin 0.6 0.5 Direct Bilirubin AST 21 20 ALT 19 24 Alkaline Phosphatase 95 112 Troponin I High Sens C-Reactive Protein B-Natriuretic Peptide Total Protein 7.0 6.7 Albumin 3.7 3.8 Procalcitonin TSH 4.05 H Free T4 1.28 Random Cortisol 20.8 Urine Color Urine Appearance Urine pH Ur Specific [place] Urine Protein Urine Glucose (UA) Urine Ketones Urine Blood Urine Nitrite Ur Leukocyte Esterase Ur Random Sodium < 20.0 Urine Creatinine 93.68 Nasal Screen MRSA (PCR) Nasal S. aureus Screen Nasal MRSA/S.aureus Interp Stl C. cayetanensis PCR Stool Rotavirus A PCR Stl Adenov F 40/41 PCR Stool Astrovirus (PCR) Stool Campylobacter PCR Stool Cryptosporidium PCR Stl Sh Tox Pr E STEC PCR Stool E coli O157 PCR Stl Enterotoxigenic E PCR Stool EPEC (PCR) Stool EAEC (PCR) Stl E. histolytica PCR Stool Giardia Lamblia PCR Stl P. shigelloides PCR Stool Salmonella PCR Stool Sapovirus (PCR) Stl Shigella/EIEC PCR St Y.enterocolitica PCR Stool Vibrio (PCR) Stl Vibrio cholerae PCR Stl Norovirus GI/GII PCR Random Vancomycin Respiratory Panel [place] Adenovirus (Rapid PCR) B.pert (TEM-PCR) B.parapertussis DNA PCR C. pneumoniae DNA (PCR) C. difficile Tox B Gene Coronavirus OC43 (PCR) Coronavirus HKU1 (PCR) Coronavirus 229E (PCR) Coronavirus NL63 (PCR) Hepatitis A IgM Ab Hep Bs Antigen Hep Bs Antibody Hep B Core Total Ab Hepatitis C Ab (EIA) HIV 1&2 Ab/P24 Ag 4thGn Human Metapneumovir PCR Influenza A (RT-PCR) Influenza A (H1) PCR Influ A (H1/09) PCR Influenza A (H3) PCR Influenza Type A (PCR) Influenza B (RT-PCR) Influenza Type B (PCR) Ur L.pneumophila Ag M.tuberculosis DNA (PCR) MTB Rifampin Resis PCR M. pneumoniae (PCR) Parainfluenza 1 (PCR) Parainfluenza 2 (PCR) Parainfluenza 3 (PCR) Parainfluenza 4 (PCR) RSV (PCR) RSV RNA Qual (PCR) Entero/Rhino (PCR) SARS-CoV-2 RNA (RT-PCR) TB Test (T-Spot) Com TB Test Nil Control TB Test Panel A TB Test Panel B TB Test Positive Cntrl Blood Type Antibody Screen Crossmatch Pre Ther Phlebot Hgb Pre Ther Phlebot Hct Therapeutic Phlebotomy 07/02/24 07/03/24 07/04/24 05:22 06:32 05:28 WBC RBC Hgb Hct MCV MCH MCHC RDW Plt Count MPV Immature Gran % (Auto) Neut % (Auto) Lymph % (Auto) [place] % (Auto) Eos % (Auto) Baso % (Auto) Lymph # (Auto) [place] # (Auto) Eos # (Auto) Baso # (Auto) Abs Immat Gran (auto) Absolute Neuts (auto) Absolute Nucleated RBC Nucleated RBC % (auto) Smear Tech's Comments Smear Path Review Hold Purple Top SEE NOTE SEE NOTE SEE NOTE VBG pH VBG pCO2 VBG pO2 VBG HCO3 VBG O2 Saturation VBG Base Excess Sodium 128 L 129 L 135 Potassium 5.0 4.6 4.0 Chloride 90 L 92 L 94 L Carbon Dioxide 28 27 30 H Anion Gap 15 15 15 BUN 18 H 55 H 32 H Creatinine 0.67 0.69 0.66 Estim Creat Clear Calc 109.1 105.9 110.7 Estimated GFR > 60 > 60 > 60 Random Glucose 97 114 88 Fasting Glucose Osmolality Lactic Acid Calcium 8.9 D 9.5 D 9.7 Magnesium Erythropoietin Total Bilirubin Direct Bilirubin AST ALT Alkaline Phosphatase Troponin I High Sens C-Reactive Protein B-Natriuretic Peptide Total Protein Albumin Procalcitonin TSH Free T4 Random Cortisol Urine Color Urine Appearance Urine pH Ur Specific [place] Urine Protein Urine Glucose (UA) Urine Ketones Urine Blood Urine Nitrite Ur Leukocyte Esterase Ur Random Sodium Urine Creatinine Nasal Screen MRSA (PCR) Nasal S. aureus Screen Nasal MRSA/S.aureus Interp Stl C. cayetanensis PCR Stool Rotavirus A PCR Stl Adenov F 40/41 PCR Stool Astrovirus (PCR) Stool Campylobacter PCR Stool Cryptosporidium PCR Stl Sh Tox Pr E STEC PCR Stool E coli O157 PCR Stl Enterotoxigenic E PCR Stool EPEC (PCR) Stool EAEC (PCR) Stl E. histolytica PCR Stool Giardia Lamblia PCR Stl P. shigelloides PCR Stool Salmonella PCR Stool Sapovirus (PCR) Stl Shigella/EIEC PCR St Y.enterocolitica PCR Stool Vibrio (PCR) Stl Vibrio cholerae PCR Stl Norovirus GI/GII PCR Random Vancomycin Respiratory Panel [place] Adenovirus (Rapid PCR) B.pert (TEM-PCR) B.parapertussis DNA PCR C. pneumoniae DNA (PCR) C. difficile Tox B Gene Coronavirus OC43 (PCR) Coronavirus HKU1 (PCR) Coronavirus 229E (PCR) Coronavirus NL63 (PCR) Hepatitis A IgM Ab Hep Bs Antigen Hep Bs Antibody Hep B Core Total Ab Hepatitis C Ab (EIA) HIV 1&2 Ab/P24 Ag 4thGn Human Metapneumovir PCR Influenza A (RT-PCR) Influenza A (H1) PCR Influ A (H1/09) PCR Influenza A (H3) PCR Influenza Type A (PCR) Influenza B (RT-PCR) Influenza Type B (PCR) Ur L.pneumophila Ag M.tuberculosis DNA (PCR) MTB Rifampin Resis PCR M. pneumoniae (PCR) Parainfluenza 1 (PCR) Parainfluenza 2 (PCR) Parainfluenza 3 (PCR) Parainfluenza 4 (PCR) RSV (PCR) RSV RNA Qual (PCR) Entero/Rhino (PCR) SARS-CoV-2 RNA (RT-PCR) TB Test (T-Spot) Com TB Test Nil Control TB Test Panel A TB Test Panel B TB Test Positive Cntrl Blood Type Antibody Screen Crossmatch Pre Ther Phlebot Hgb Pre Ther Phlebot Hct Therapeutic Phlebotomy 07/05/24 07/05/24 07/05/24 05:39 07:22 09:19 WBC RBC Hgb Hct MCV MCH MCHC RDW Plt Count MPV Immature Gran % (Auto) Neut % (Auto) Lymph % (Auto) [place] % (Auto) Eos % (Auto) Baso % (Auto) Lymph # (Auto) [place] # (Auto) Eos # (Auto) Baso # (Auto) Abs Immat Gran (auto) Absolute Neuts (auto) Absolute Nucleated RBC Nucleated RBC % (auto) Smear Tech's Comments Smear Path Review Hold Purple Top SEE NOTE SEE NOTE VBG pH VBG pCO2 VBG pO2 VBG HCO3 VBG O2 Saturation VBG Base Excess Sodium 131 L 131 L Potassium 4.3 4.5 Chloride 91 L 94 L Carbon Dioxide 29 29 Anion Gap 15 13 BUN 25 H 25 H Creatinine 0.67 0.69 Estim Creat Clear Calc 109.1 105.9 Estimated GFR > 60 > 60 Random Glucose 103 109 Fasting Glucose Osmolality Lactic Acid Calcium 9.7 9.4 Magnesium Erythropoietin Total Bilirubin Direct Bilirubin AST ALT Alkaline Phosphatase Troponin I High Sens C-Reactive Protein B-Natriuretic Peptide Total Protein Albumin Procalcitonin TSH Free T4 Random Cortisol Urine Color Urine Appearance Urine pH Ur Specific [place] Urine Protein Urine Glucose (UA) Urine Ketones Urine Blood Urine Nitrite Ur Leukocyte Esterase Ur Random Sodium Urine Creatinine Nasal Screen MRSA (PCR) Nasal S. aureus Screen Nasal MRSA/S.aureus Interp Stl C. cayetanensis PCR Not Detected Stool Rotavirus A PCR Not Detected Stl Adenov F 40/41 PCR Not Detected Stool Astrovirus (PCR) Not Detected Stool Campylobacter PCR Not Detected Stool Cryptosporidium PCR Not Detected Stl Sh Tox Pr E STEC PCR Not Detected Stool E coli O157 PCR Not applicable Stl Enterotoxigenic E PCR Not Detected Stool EPEC (PCR) Not Detected Stool EAEC (PCR) Not Detected Stl E. histolytica PCR Not Detected Stool Giardia Lamblia PCR Not Detected Stl P. shigelloides PCR Not Detected Stool Salmonella PCR Not Detected Stool Sapovirus (PCR) Not Detected Stl Shigella/EIEC PCR Not Detected St Y.enterocolitica PCR Not Detected Stool Vibrio (PCR) Not Detected Stl Vibrio cholerae PCR Not Detected Stl Norovirus GI/GII PCR Not Detected Random Vancomycin Respiratory Panel [place] Adenovirus (Rapid PCR) B.pert (TEM-PCR) B.parapertussis DNA PCR C. pneumoniae DNA (PCR) C. difficile Tox B Gene NEGATIVE Coronavirus OC43 (PCR) Coronavirus HKU1 (PCR) Coronavirus 229E (PCR) Coronavirus NL63 (PCR) Hepatitis A IgM Ab Hep Bs Antigen Hep Bs Antibody Hep B Core Total Ab Hepatitis C Ab (EIA) HIV 1&2 Ab/P24 Ag 4thGn Human Metapneumovir PCR Influenza A (RT-PCR) Influenza A (H1) PCR Influ A (H1/09) PCR Influenza A (H3) PCR Influenza Type A (PCR) Influenza B (RT-PCR) Influenza Type B (PCR) Ur L.pneumophila Ag M.tuberculosis DNA (PCR) MTB Rifampin Resis PCR M. pneumoniae (PCR) Parainfluenza 1 (PCR) Parainfluenza 2 (PCR) Parainfluenza 3 (PCR) Parainfluenza 4 (PCR) RSV (PCR) RSV RNA Qual (PCR) Entero/Rhino (PCR) SARS-CoV-2 RNA (RT-PCR) TB Test (T-Spot) Com TB Test Nil Control TB Test Panel A TB Test Panel B TB Test Positive Cntrl Blood Type Antibody Screen Crossmatch Pre Ther Phlebot Hgb Pre Ther Phlebot Hct Therapeutic Phlebotomy 07/06/24 07/07/24 07/12/24 07:15 05:57 16:59 WBC 17.8 H 16.1 H 18.2 H RBC 5.65 5.53 5.50 Hgb 17.2 16.9 16.9 Hct 50.7 49.3 48.8 MCV 89.7 89.2 88.7 MCH 30.4 30.6 30.7 MCHC 33.9 34.3 34.6 RDW 12.8 12.7 12.8 Plt Count 344 319 290 MPV 9.4 9.0 L 8.5 L Immature Gran % (Auto) 0.8 H Neut % (Auto) 90.6 H Lymph % (Auto) 5.4 L [place] % (Auto) 3.0 Eos % (Auto) 0.1 Baso % (Auto) 0.1 Lymph # (Auto) 0.9 L [place] # (Auto) 0.5 Eos # (Auto) 0.0 Baso # (Auto) 0.0 Abs Immat Gran (auto) 0.13 H Absolute Neuts (auto) 14.5 H Absolute Nucleated RBC 0.000 0.000 0.000 Nucleated RBC % (auto) 0.0 0.0 0.0 Smear Tech's Comments VERIFIED Smear Path Review Hold Purple Top VBG pH VBG pCO2 VBG pO2 VBG HCO3 VBG O2 Saturation VBG Base Excess Sodium 133 L 131 L Potassium 4.4 4.1 Chloride 94 L 92 L Carbon Dioxide 28 28 Anion Gap 15 15 BUN 18 H 19 H Creatinine 0.68 0.82 Estim Creat Clear Calc 107.5 89.1 Estimated GFR > 60 > 60 Random Glucose 139 H Fasting Glucose 122 H Osmolality Lactic Acid Calcium 9.7 9.0 D Magnesium Erythropoietin Total Bilirubin 0.3 Direct Bilirubin AST 23 ALT 41 H Alkaline Phosphatase 125 H Troponin I High Sens C-Reactive Protein B-Natriuretic Peptide Total Protein 6.5 Albumin 3.5 Procalcitonin TSH Free T4 Random Cortisol Urine Color Urine Appearance Urine pH Ur Specific [place] Urine Protein Urine Glucose (UA) Urine Ketones Urine Blood Urine Nitrite Ur Leukocyte Esterase Ur Random Sodium Urine Creatinine Nasal Screen MRSA (PCR) Nasal S. aureus Screen Nasal MRSA/S.aureus Interp Stl C. cayetanensis PCR Stool Rotavirus A PCR Stl Adenov F 40/41 PCR Stool Astrovirus (PCR) Stool Campylobacter PCR Stool Cryptosporidium PCR Stl Sh Tox Pr E STEC PCR Stool E coli O157 PCR Stl Enterotoxigenic E PCR Stool EPEC (PCR) Stool EAEC (PCR) Stl E. histolytica PCR Stool Giardia Lamblia PCR Stl P. shigelloides PCR Stool Salmonella PCR Stool Sapovirus (PCR) Stl Shigella/EIEC PCR St Y.enterocolitica PCR Stool Vibrio (PCR) Stl Vibrio cholerae PCR Stl Norovirus GI/GII PCR Random Vancomycin Respiratory Panel [place] Adenovirus (Rapid PCR) B.pert (TEM-PCR) B.parapertussis DNA PCR C. pneumoniae DNA (PCR) C. difficile Tox B Gene Coronavirus OC43 (PCR) Coronavirus HKU1 (PCR) Coronavirus 229E (PCR) Coronavirus NL63 (PCR) Hepatitis A IgM Ab Hep Bs Antigen Hep Bs Antibody Hep B Core Total Ab Hepatitis C Ab (EIA) HIV 1&2 Ab/P24 Ag 4thGn Human Metapneumovir PCR Influenza A (RT-PCR) Influenza A (H1) PCR Influ A (H1/09) PCR Influenza A (H3) PCR Influenza Type A (PCR) Influenza B (RT-PCR) Influenza Type B (PCR) Ur L.pneumophila Ag M.tuberculosis DNA (PCR) MTB Rifampin Resis PCR M. pneumoniae (PCR) Parainfluenza 1 (PCR) Parainfluenza 2 (PCR) Parainfluenza 3 (PCR) Parainfluenza 4 (PCR) RSV (PCR) RSV RNA Qual (PCR) Entero/Rhino (PCR) SARS-CoV-2 RNA (RT-PCR) TB Test (T-Spot) Com TB Test Nil Control TB Test Panel A TB Test Panel B TB Test Positive Cntrl Blood Type Antibody Screen Crossmatch Pre Ther Phlebot Hgb Pre Ther Phlebot Hct Therapeutic Phlebotomy 07/14/24 07/16/24 07/16/24 14:00 08:34 13:14 WBC 19.4 H RBC 5.99 H Hgb 18.1 H Hct 52.4 H MCV 87.5 MCH 30.2 MCHC 34.5 RDW 13.2 Plt Count 288 MPV 8.8 L Immature Gran % (Auto) Neut % (Auto) Lymph % (Auto) [place] % (Auto) Eos % (Auto) Baso % (Auto) Lymph # (Auto) [place] # (Auto) Eos # (Auto) Baso # (Auto) Abs Immat Gran (auto) Absolute Neuts (auto) Absolute Nucleated RBC 0.000 Nucleated RBC % (auto) 0.0 Smear Tech's Comments Smear Path Review Hold Purple Top VBG pH VBG pCO2 VBG pO2 VBG HCO3 VBG O2 Saturation VBG Base Excess Sodium Potassium Chloride Carbon Dioxide Anion Gap BUN Creatinine Estim Creat Clear Calc Estimated GFR Random Glucose Fasting Glucose Osmolality Lactic Acid Calcium Magnesium Erythropoietin Total Bilirubin Direct Bilirubin AST ALT Alkaline Phosphatase Troponin I High Sens C-Reactive Protein B-Natriuretic Peptide Total Protein Albumin Procalcitonin TSH Free T4 Random Cortisol Urine Color Urine Appearance Urine pH Ur Specific [place] Urine Protein Urine Glucose (UA) Urine Ketones Urine Blood Urine Nitrite Ur Leukocyte Esterase Ur Random Sodium Urine Creatinine Nasal Screen MRSA (PCR) Nasal S. aureus Screen Nasal MRSA/S.aureus Interp Stl C. cayetanensis PCR Stool Rotavirus A PCR Stl Adenov F 40 PCR Stool Astrovirus (PCR) Stool Campylobacter PCR Stool Cryptosporidium PCR Stl Sh Tox Pr E STEC PCR Stool E coli O157 PCR Stl Enterotoxigenic E PCR Stool EPEC (PCR) Stool EAEC (PCR) Stl E. histolytica PCR Stool Giardia Lamblia PCR Stl P. shigelloides PCR Stool Salmonella PCR Stool Sapovirus (PCR) Stl Shigella/EIEC PCR St Y.enterocolitica PCR Stool Vibrio (PCR) Stl Vibrio cholerae PCR Stl Norovirus GI/GII PCR Random Vancomycin Respiratory Panel [place] See Note Adenovirus (Rapid PCR) Not Detected B.pert (TEM-PCR) Not Detected B.parapertussis DNA PCR Not Detected C. pneumoniae DNA (PCR) Not Detected C. difficile Tox B Gene Coronavirus OC43 (PCR) Not Detected Coronavirus HKU1 (PCR) Not Detected Coronavirus 229E (PCR) Not Detected Coronavirus NL63 (PCR) Not Detected Hepatitis A IgM Ab Hep Bs Antigen Hep Bs Antibody Hep B Core Total Ab Hepatitis C Ab (EIA) HIV 1&2 Ab/P24 Ag 4thGn Human Metapneumovir PCR Not Detected Influenza A (RT-PCR) Not Detected Influenza A (H1) PCR Not Detected Influ A (H1/09) PCR Not Detected Influenza A (H3) PCR Not Detected Influenza Type A (PCR) Influenza B (RT-PCR) Not Detected Influenza Type B (PCR) Ur L.pneumophila Ag M.tuberculosis DNA (PCR) MTB Rifampin Resis PCR M. pneumoniae (PCR) Not Detected Parainfluenza 1 (PCR) Not Detected Parainfluenza 2 (PCR) Not Detected Parainfluenza 3 (PCR) Not Detected Parainfluenza 4 (PCR) Not Detected RSV (PCR) Not Detected RSV RNA Qual (PCR) Entero/Rhino (PCR) Not Detected SARS-CoV-2 RNA (RT-PCR) Not Detected TB Test (T-Spot) Com TB Test Nil Control TB Test Panel A TB Test Panel B TB Test Positive Cntrl Blood Type O Positive Antibody Screen NEGATIVE Crossmatch See Detail Pre Ther Phlebot Hgb Pre Ther Phlebot Hct Therapeutic Phlebotomy Airway Loose/Missing/Broken Teeth: Yes (edentulous) Heart: S1S2 Lungs: Bilateral rhonchi Assessment and Plan Assessment Anesthesia Assessment: Anesthesia Plan Discussed and Chart Reviewed Final Anesthetic Review Family History of Problems with Anesthesia: No History of Problems with Anesthesia: No NPO: Yes ASA Class: III Final Preanesthetic Review: No Changes in Pt Med Stat, Meds/Allgs Chart Reviewed, Consent Obtained/Reviewed (patient is aware that he may remain intubated and be admitted to the ICU post-operatively) and Anes Risks/Benef Reviewed Patient Risk: High Procedure Risk: High Anesthetic Plan Anesthetic Plan: GA and Agree w/ Assess. and Plan Disposition: Inp. Admit - ICU
[2024-07-17] MEDS: propofoL 1,000 MG/100 ML VIAL 11.84 MG IVCONT (11:00)
--- NOTE | 2024-07-17 11:01 | W.PM.OPN ---
Operative Note Operative Note Date of Service: 07/17/24 Narrative: Preoperative diagnosis: [] <del>Pulmonary</del> <del>sepsis,</del> <del>left</del> <del>lung</del> <del>abscess/necrosis</del> <del>left</del> <del>lower</del> <del>lobe.</del> <del>Acute</del> <del>and</del> <del>chronic</del> <del>lung</del> <del>suppuration</del> Postop diagnosis: [] Pulmonary sepsis, left lower lobe extensive abscess also involving the upper lobe and lingula as well, entire left lung phlegmonous, necrotic abscess riddled, several inflammatory enlarged lymph nodes Procedure [] left thoracotomy, initially left lower lobectomy extended to left completion pneumonectomy, bronchoscopy, intercostal nerve block Surgeon: [] Gerard Panel Edge Sealer: [] Derrick Boston Type of Anesthesia: [] Double-lumen general Indication for surgery: Bronchoscopy demonstrated profuse purulent secretions coming from the left lung. No gross endoluminal pathology demonstrated. Right side grossly within normal limits with some secretions. Also bronchoscopy was used to confirm placement of double-lumen tube positioning. Intraoperative findings were as noted above. Patient had a necrotic left lower lobe which extended across the major fissure into the lingula and left upper lobe. Markedly phlegmonous , edematous necrotic lung essentially. An attempt was made to only perform left lower lobectomy but because of the profound inflammatory/infectious processes extending into the lingula and upper lobe with marked necrosis of these lobes, to relieve patient's pulmonary sepsis, completion pneumonectomy was performed. Findings: [] Patient brought to the operating room, placed on operative table supine position, after an adequate level of double-lumen general anesthesia was induced, patient underwent bronchoscopy with findings noted above. Patient was then placed in the right lateral decubitus position and left chest was prepped draped in usual sterile fashion . Next, using a small posterolateral incision, this carried infra scapularly through the skin, subcutaneous tissue, and latissimus dorsi muscle. Serratus anterior muscle was preserved and retracted anteriorly. Fifth intercostal space was opened along the upper margin 6th rib. The posterior aspect of the 5th rib was transected to enhance exposure. Patient had marked adhesions of the lung to the chest wall which were taken down. Lung was mobilized and then packs and retractors were placed to enhance exposure. Findings were as noted above. Patient had a massive abscess cavity involving the central portion of the left lower lobe. The process extended across the major fissure into the upper lobe and lingula. Inferior pulmonary ligament was taken down using Bovie and attempt was made to preserve the left upper lobe and lingula by considering wedging this portion of the lung along with the massive abscess involving the left lower lobe. Inferior pulmonary vein was skeletonized, encircled with silk, and transected using vascular stapler. Next the major fissure was entered. As noted above, there were marked inflammatory findings of the hilum secondary to the significant infectious process. There was marked cicatrization and scarring involving the hilum and major fissure. With meticulous dissection, interlobar pulmonary artery was identified and dissected and the superior segmental and basal vessels to the lower lobe were identified, encircled with silks, and sequentially transected using endoscopic vascular staplers. Fissures were completed using combination of Bovie and staplers. The bronchus to the left lower lobe was identified, skeletonized, heavy wire stapler placed across this and remaining lung re-expanded with no compromise to the left upper lobe and lingula. Stapler was uneventfully transected and the lobe delivered from the field. Further inspection of the left upper lobe and lingula demonstrated at that the abscess cavity process extended markedly into the lingula and left upper lobe, not amenable to simple wedge resection because of the extensive necrotic lung involving the central location of the upper lobe and lingula. In order to provide complete resection of the profound pulmonary process, a completion pneumonectomy was performed. Superior pulmonary left vein was identified, skeletonized, encircled with silk and transected using vascular stapler. Next the main pulmonary artery in the hilum was identified, circumferentially dissected out, encircled with a silk and then transected using vascular stapler. The left mainstem bronchus was identified, encircled, and heavy wire vascular stapler placed across this and uneventfully fired. Specimens sent to pathology. Chest cavity was irrigated and bronchial stump was tested and found to be intact. Through a separate stab wound incision, 20 Frisian chest tube was advanced into the hemithorax and secured to the skin using 0 silk suture. Wound was again irrigated and secured hemostasis. Wound was closed in the following manner; over and over 1. Vicryl sutures x4 were used to reapproximate the ribs. Latissimus dorsi muscle was closed using running 1. Dexon suture. Subcutaneous running 2-0 Vicryl suture followed by running subcuticular 4-0 Vicryl sutures were placed. Steri-Strips and sterile dressings were applied. Intercostal nerve block using Exparel was then performed at the main incision site and chest tube site. Chest tube was connected to the Pleur-evac and not placed on suction. Sponge, needle, and instrument counts were reported correct. Patient tolerated the procedure well and was transferred directly to ICU with double-lumen tube in place for continued restorative measures. EBL minimal. Postprocedure chest x-ray pending.
--- NOTE | 2024-07-17 11:06 | P.PNCC_ITS ---
Subjective Subjective Date of Service: 07/17/24 Interval History: 59-year-old gentleman, recent 30+ pack-year smoker admitted on 06/14/2024 with hypoxia and multifocal pneumonia with abscesses. Patient has been treated with empiric antibiotics with essentially negative cultures. His bronchoscopic lavage also had essentially negative cultures. However, clinically his pulmonary abscess got worse in he had an attempt at left lower lobectomy on follow-up in 2024, however he required completion left pneumonectomy, now being monitored in the intensive care unit. Critical Care Time (minutes): 60 Physical Exam 2 Vital Signs: Vital Signs: Last Vital Signs Temp 96.9 F 07/17/24 06:29 Pulse 89 07/17/24 06:29 Resp 25 H 07/17/24 06:29 BP 113/80 07/17/24 06:29 Pulse Ox 90 L 07/17/24 06:29 O2 Del Method Nasal Cannula 07/17/24 06:29 O2 Flow Rate 7 07/17/24 06:29 BMI result Body Mass Index 20.8 Const: General: no acute distress and other (Sedated on ventilatory support) Nutritional Appearance: malnourished Eyes: Sclerae: sclerae normal EOM: EOMs intact bilaterally Neck: Neck: Yes no lymphadenopathy, Yes trachea midline and Yes supple Resp: Auscultation: other (No air movement on the left) Cardio: Rate: regular rate Rhythm: regular rhythm Heart sounds: no gallops, no murmurs and no rubs GI: Palpation (GI): Soft to palpation and Other GI palpation findings present ( Nontender) Auscultation: normal bowel sounds Extrem: General: Yes no pedal edema, No clubbing and No cyanosis Objective Data Labs 07/16/24 08:34 07/12/24 16:59 Labs: Laboratory Results - last 24 hr 07/16/24 13:14 Blood Type O Positive Antibody Screen NEGATIVE Crossmatch See Detail Microbiology Microbiology Results: Microbiology 07/11/24 10:46 Bronchial Washings Fungal Identification - Preliminary No growth to date. 07/11/24 10:46 Bronchial Washings Gram Stain - Final 07/11/24 10:46 Bronchial Washings Routine Culture - Final No growth after 2 days 07/04/24 08:23 Sputum - Expectorated Gram Stain - Final 07/04/24 08:23 Sputum - Expectorated Sputum Culture - Final Briseida albicans 06/22/24 15:30 Sputum - Expectorated Gram Stain - Final 06/22/24 15:30 Sputum - Expectorated Sputum Culture - Final Briseida albicans 06/14/24 11:04 Blood - Venous Blood Culture - Final No growth after 5 days. 06/14/24 11:04 Blood - Venous Blood Culture - Final No growth after 5 days. 06/14/24 16:08 Sputum - Expectorated Direct Acid Fast Bacilli Smear - Final 06/16/24 03:15 Sputum - Expectorated Direct Acid Fast Bacilli Smear - Final 06/16/24 10:30 Sputum - Expectorated Direct Acid Fast Bacilli Smear - Final Progress Note: A&P Assessment and plan (1) Status post pneumonectomy: Status: Acute (2) Pneumonia: Status: Acute (3) Abscess of lung with pneumonia: Status: Acute (4) Acute hypoxic respiratory failure: Status: Acute Plan Assessment: 59-year-old gentleman admitted with pneumonia and pulmonary abscesses requiring pneumonectomy on 07/17/2024 Plan: Neuro: No acute issues. Cardiac: No acute issues. Pulmonary: Pneumonia with pulmonary abscesses, now postoperative day 0 status post left pneumonectomy when transferred from were intubated. Continue to titrate off ventilatory support as tolerated. Thoracic surgery service care appreciated. Renal: No acute issues. Endo: No acute issues. GI: No acute issues. ID: Pulmonary abscess on the background of pneumonia, now status post left pneumonectomy. Continue Levaquin. Heme/Onc: No acute issues. Psych: No acute issues. Miscellaneous: No acute issues. Prophylaxis: Heparin, ppi Diet: NPO Critical care time spent: 60 minute Quality Stroke Does the patient have a stroke diagnosis?: No VTE Prior VTE?: No VTE Risk Level:: Medical - moderate - high VTE Device Contraindication: Treatment Not Indicated VTE Drug Contraindication: N/A - Med Ordered
[2024-07-17] MEDS: Norepinephrine Bitartrate/D5W 8 MG/250 ML PLAST..BAG 6.17 MG IVCONT (11:30)
--- NOTE | 2024-07-17 11:45 | PC.NURSE ---
Pt to OR before beginning of day shift - after surgery went directly to ICU, therefore no contact w patient.
--- NOTE | 2024-07-17 12:20 | P.PNIM_ITS ---
Subjective Subjective Date of Service: 07/17/24 Interval History: NPO, for left pneumonectomy No acute events documented overnight, no fevers, hypoxia unchanged on 7 L Review of Systems All other system reviewed and resolved Physical Exam 2 Vital Signs: Vital Signs: Last Vital Signs Temp 96.9 F 07/17/24 06:29 Pulse 79 07/17/24 12:00 Resp 16 07/17/24 12:00 BP 101/57 L 07/17/24 12:00 Pulse Ox 98 07/17/24 12:00 O2 Del Method Mechanical Ventil ation 07/17/24 12:00 O2 Flow Rate 7 07/17/24 06:29 FiO2 60 07/17/24 12:00 BMI result Body Mass Index 20.8 Const: Other: Gen: in no acute distress HEENT: sclera anicteric, moist mucus membranes Neck: supple Lungs: Persistent inspiratory crackles L >rt, normal respiratory effort Heart: regular rate and rhythm, no murmurs Abd: soft, non-tender, non-distended Ext: no edema, R basilic midline Skin: warm/well-perfused, upper chest and upper back macular rash fading. Neuro: alert and oriented x3, no focal findings Psych: appropriate affect Objective Data Active Medications Albuterol/Ipratropium (Albuterol/Iprat 2.5/0.5mg 3 Ml Ampul.Neb) 3 ml INHALE Q4H PRN PRN Reason: Wheezing Last Admin: 07/16/24 18:37 Dose: 3 ml Documented By: SANCHEZ Chlorhexidine Gluconate (Chlorhexidine Gluc Oral Rinse 15 Ml Mouthwash) 15 ml BUCCAL TID [facility] Heparin Sodium (Porcine) 50 (units/ Sodium Chloride 5 ml) 0 units IVFLUSH TID [facility] Last Admin: 07/17/24 08:42 Dose: Not Given Documented By: MARGRET Non-Admin Reason: Off Unit: Surgery Enoxaparin Sodium (Enoxaparin Sodium 40 Mg/0.4 Ml Syringe) 40 mg SUBCUT Q24H [facility] Last Admin: 07/16/24 16:15 Dose: 40 mg Documented By: CARLIN Levofloxacin (Levaquin) 750 mg in 150 mls @ 100 mls/hr IV Q24H [facility] Last Admin: 07/17/24 08:41 Dose: Not Given Documented By: MARGRET Non-Admin Reason: Off Unit: Surgery Propofol (Diprivan) 1,000 mg in 100 mls @ 0 mls/hr IVCONT .Q0M [facility]; Protocol Last Titration: 07/17/24 11:30 Dose: 20 mcg/kg/min, 7.9 mls/hr Documented By: ONDINA Ondansetron HCl (Ondansetron Hcl 4 Mg/2 Ml Vial) 4 mg IVPUSH Q8H PRN PRN Reason: Nausea and Vomiting Last Admin: 06/22/24 19:52 Dose: 4 mg Documented By: EBONI Pantoprazole Sodium (Pantoprazole Sodium 40 Mg/10 Ml Vial) 40 mg IVPUSH DAILY@0630 CRISTINE Sodium Chloride (0.9 % Sodium Chloride Flush 3 Ml Syringe) 3 ml IVFLUSH QSHIFT [facility] Last Admin: 07/17/24 08:41 Dose: Not Given Documented By: MARGRET Non-Admin Reason: Off Unit: Surgery Labs 07/16/24 08:34 07/12/24 16:59 Labs: Laboratory Results - last 24 hr 07/16/24 13:14 Blood Type O Positive Antibody Screen NEGATIVE Crossmatch See Detail Microbiology Microbiology Results: Microbiology 07/11/24 10:46 Direct Acid Fast Bacilli Smear - Final Bronchial Washings Assessment and Plan (1) Hyponatremia: Status: Acute (2) 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 (3) Pneumonia: Status: Acute (4) Acute hypoxic respiratory failure: Status: Acute (5) Abscess of lung with pneumonia: Status: Acute Plan 59-year-old gentleman 30 pack year smoker admitted on June 14 with hypoxia and multifocal pneumonia with abscesses patient treated aggressively with empiric antibiotics with essentially negative cultures, Sepsis currently underwent bronchoscopy, bronchoscopic lavage cultures also remained negative, due to persistent symptoms with worsening leukocytosis patient evaluated by thoracic surgery and scheduled for left pneumonectomy. Pneumonia with pulmonary abscess Scheduled for left pneumonectomy Continue current antibiotics/cough medication Acute hypoxic respiratory failure due to above Persistent hypoxia continue to wean oxygen as tolerated Drug rash due to meropenem resolved Hyponatremia initially treated with sodium chloride, fluid restriction and urea, follow sodium level Diarrhea resolved C diff and GI panel negative Erythrocytosis likely secondary to hypoxia from COPD, chronic smoker avoid hypoxia and dehydration outpatient follow-up with Dr. Dean for therapy phlebotomy and further workup GERD continue PPI and Maalox Tobacco use disorder counseling done continue nicotine replacement therapy DVT prophylaxis with Lovenox Disposition patient will be transferred to intensive care unit for higher level of care post left pneumonectomy. Quality Stroke Does the patient have a stroke diagnosis?: No VTE Prior VTE?: No VTE Risk Level:: Medical - moderate - high VTE Device Contraindication: Treatment Not Indicated VTE Drug Contraindication: N/A - Med Ordered
[2024-07-17 12:39] LABS: Hematocrit 46.4 % (42.0-52.0); Hemoglobin 15.7 g/dl (14.0-18.0); Mean Corpuscular HGB Conc 33.8 g/dl (31.0-36.0); Mean Corpuscular Hemoglobin 30.5 pg (27.0-33.0); Mean Corpuscular Volume 90.1 fL (80.0-98.0); Mean Platelet Volume 8.6 fL (9.4-12.4); Platelet Count 239 X10*3/uL (160-400); Red Blood Count 5.15 X10*6/uL (4.60-5.80); Red Cell Distribution Width 13.3 % (11.0-16.0); White Blood Count 18.5 X10*3/uL (4.8-10.8)
[2024-07-17 12:53] LABS: Anion Gap 12 (12-20); Blood Urea Nitrogen 19 mg/dL (9-16); Calcium 8.4 mg/dL (8.4-10.2); Carbon Dioxide 26 mmol/L (22-29); Chloride 100 mmol/L (96-108); Creatinine Clr Calc Pharmacy 123.9; Estimated Glomerular Filt Rate > 60; Glucose Random 137 mg/dL (60-115); Potassium 4.8 mmol/L (3.3-5.1); Sodium 133 mmol/L (135-145)
--- NOTE | 2024-07-17 14:03 | MHC.CM.PN ---
Pt transferred to ICU on vent support following left lobectomy (entire) d/t necrosis/sepsis. Pt had been referred to [facility] for pulmonary rehab. CM to follow for clinical progress.
[2024-07-17] MEDS: HYDROmorphone HCl 1 MG/ML SYRINGE 2 MG IVPUSH (14:08)
[2024-07-17] MEDS: 0.9 % Sodium Chloride Flush 3 ML SYRINGE IVFLUSH ×2 (15:08→22:29)
[2024-07-17] MEDS: Chlorhexidine Gluc Oral Rinse 15 ML MOUTHWASH BUCCAL ×2 (15:08→20:37)
[2024-07-17] MEDS: propofoL 1,000 MG/100 ML VIAL 19.74 MG IVCONT (16:16)
--- NOTE | 2024-07-17 17:16 | PC.NURSE ---
Pt. transferred to ICU from OR at approx 1100- Pt. intubated upon arrival with 37 mm dual lumen ETT, 31 cm at the lip. ETT secured by RT, CXR performed on arrival to confirm ETT placement- see report. Pt. Placed on ACVC settings, 16/275/5/40%. Sedation started and titrated per MAR. At approx 1400, pt. became restless, tracking, following commands, nodding yes when asked if in pain. Sedation titrated per MAR and PRN dialudid given with good effect. Pt. SR on tele, HR 60s-70s. R radial kristy in place, waveform appropriate, SBPs 90s-110s with MAPs >65- norepinephrine gtt started and titrated per MAR. L mid-axillary chest tube in place, collection chamber set to water seal, no suction per thoracic surgery. Water tidaling, no airleak, scant sanguineous drainage. Mild crepitus palpated around chest tube insertion site- MD aware. Pt. NPO, no OGT placed per MD. Rizvi remains in place from OR, draining CYU. Urine output decreased to approx 5-10 cc/hr- MD aware. Q2 repositioning and oral care performed, Hovermat system in place. Family at bedside and updated by this RN. Plan of care ongoing.
[2024-07-17 18:21] LABS: Venous Blood Gas Refer to POC result
[2024-07-17 18:22] LABS: VBG Base Excess 4.4 mmol/L; VBG HCO3 31 mmol/L (22-26); VBG pCO2 56 mmHg; VBG pH 7.35 (7.32-7.43); VBG pO2 71 mmHg
[2024-07-17 18:26] LABS: Basophils Absolute Auto 0.1 X10*3/uL (0.0-0.2); Basophils Percent Auto 0.7 % (0-2); Eosinophils Absolute Auto 0.4 X10*3/uL (0.0-0.4); Eosinophils Percent Auto 2.4 % (0-4); Hematocrit 45.8 % (42.0-52.0); Hemoglobin 15.6 g/dl (14.0-18.0); Imm Gran Abs Auto 0.33 X10*3/uL (0.00-0.03); Imm Gran Pct Auto 1.9 % (0.0-0.4); Lymphocytes Absolute Auto 1.3 X10*3/uL (1.2-4.9); Lymphocytes Percent Auto 7.3 % (20-40); MANUAL DIFF FLAG SCAN; Mean Corpuscular HGB Conc 34.1 g/dl (31.0-36.0); Mean Corpuscular Hemoglobin 30.9 pg (27.0-33.0); Mean Corpuscular Volume 90.7 fL (80.0-98.0); Monocytes Absolute Auto 1.1 X10*3/uL (0.1-1.2); Monocytes Percent Auto 6.1 % (2-11); NRBC Pct Auto 0.1 /100WBC (0.0-0.2); Neutrophils Absolute Auto 14.1 x10*3/uL (2.0-8.3); Neutrophils Percent Auto 81.6 % (45-73); PLT CLUMP 1; Red Blood Count 5.05 X10*6/uL (4.60-5.80); Red Cell Distribution Width 13.5 % (11.0-16.0); SCAN SMEAR FLAG 1
[2024-07-17 18:33] LABS: Anion Gap 12 (12-20); Blood Urea Nitrogen 16 mg/dL (9-16); Calcium 8.3 mg/dL (8.4-10.2); Carbon Dioxide 25 mmol/L (22-29); Chloride 100 mmol/L (96-108); Estimated Glomerular Filt Rate > 60; Glucose Random 135 mg/dL (60-115); Magnesium 1.7 mg/dL (1.6-2.6); Phosphorus 5.2 mg/dL (2.7-4.5); Potassium 5.1 mmol/L (3.3-5.1); Sodium 132 mmol/L (135-145)
[2024-07-17 18:38] LABS: White Blood Count 17.3 X10*3/uL (4.8-10.8)
[2024-07-17 18:39] LABS: SLIDE REVIEW VERIFIED
[2024-07-17] MEDS: propofoL 1,000 MG/100 ML VIAL 15.79 MG IVCONT (21:18)
[2024-07-17] MEDS: Norepinephrine Bitartrate/D5W 8 MG/250 ML PLAST..BAG 20.97 MG IVCONT (23:40)
[2024-07-18] VITALS (48 sets, daily range): BP systolic 84–144; BP diastolic 45–80; PULSE 65–97; RESP 12–25; TEMP 34.8–37.2; O2SAT 89–97; BMI 15.9
[2024-07-18] MEDS: HYDROmorphone HCl 1 MG/ML SYRINGE 2 MG IVPUSH ×2 (00:23→09:40)
[2024-07-18] MEDS: propofoL 1,000 MG/100 ML VIAL 19.74 MG IVCONT ×2 (01:11→05:51)
[2024-07-18 04:58] LABS: VBG Base Excess 4.9 mmol/L; VBG HCO3 31 mmol/L (22-26); VBG pCO2 52 mmHg; VBG pH 7.38 (7.32-7.43); VBG pO2 62 mmHg
[2024-07-18 05:18] LABS: MANUAL DIFF FLAG NO
[2024-07-18 05:21] LABS: Basophils Absolute Auto 0.1 X10*3/uL (0.0-0.2); Basophils Percent Auto 0.5 % (0-2); Eosinophils Absolute Auto 0.6 X10*3/uL (0.0-0.4); Hematocrit 45.6 % (42.0-52.0); Hemoglobin 15.2 g/dl (14.0-18.0); Imm Gran Abs Auto 0.17 X10*3/uL (0.00-0.03); Imm Gran Pct Auto 1.2 % (0.0-0.4); Lymphocytes Absolute Auto 1.5 X10*3/uL (1.2-4.9); Mean Corpuscular HGB Conc 33.3 g/dl (31.0-36.0); Mean Corpuscular Hemoglobin 30.2 pg (27.0-33.0); Mean Corpuscular Volume 90.7 fL (80.0-98.0); Monocytes Percent Auto 6.8 % (2-11); Neutrophils Absolute Auto 10.6 x10*3/uL (2.0-8.3); Neutrophils Percent Auto 76.5 % (45-73); Platelet Count 278 X10*3/uL (160-400); Red Blood Count 5.03 X10*6/uL (4.60-5.80); Red Cell Distribution Width 13.5 % (11.0-16.0); White Blood Count 13.9 X10*3/uL (4.8-10.8)
[2024-07-18 05:51] LABS: Alanine Aminotransferase 47 U/L (0-40); Albumin Level 2.8 g/dL (3.5-5.0); Alkaline Phosphatase 103 U/L (39-117); Anion Gap 12 (12-20); Aspartate Amino Transferase 44 U/L (5-37); Bilirubin Total 0.3 mg/dL (0.0-1.0); Blood Urea Nitrogen 12 mg/dL (9-16); Calcium 8.7 mg/dL (8.4-10.2); Carbon Dioxide 28 mmol/L (22-29); Chloride 99 mmol/L (96-108); Creatinine Clr Calc Pharmacy 86.1; Estimated Glomerular Filt Rate > 60; Glucose Random 131 mg/dL (60-115); Magnesium 1.8 mg/dL (1.6-2.6); Sodium 134 mmol/L (135-145); Total Protein 5.5 g/dL (6.5-8.0)
[2024-07-18] MEDS: Pantoprazole Sodium 40 MG/10 ML VIAL IVPUSH (05:51)
[2024-07-18 06:05] LABS: Venous Blood Gas Refer to POC result
--- NOTE | 2024-07-18 06:22 | PC.NURSE ---
Assumed care 1900 - pt intubated and sedated. RASS -3, on propofol - titrated per JUN.? MAPs <60, levophed titrated?per MAR. L mid-axillary chest tube to water seal - see chest tube flowsheet. PRN dilaudid given for pain - see MAR.?
[2024-07-18] MEDS: 0.9 % Sodium Chloride Flush 3 ML SYRINGE IVFLUSH ×2 (08:11→15:45)
[2024-07-18] MEDS: Albumin Human 25 % 100 ML IV ×3 (08:12→20:18)
[2024-07-18] MEDS: Norepinephrine Bitartrate/D5W 8 MG/250 ML PLAST..BAG 25.91 MG IVCONT (08:12)
[2024-07-18] MEDS: Chlorhexidine Gluc Oral Rinse 15 ML MOUTHWASH BUCCAL (08:12)
[2024-07-18] MEDS: levoFLOXacin/D5W 750 MG/150 ML PIGGYBACK 100 MG IV (09:20)
--- NOTE | 2024-07-18 10:57 | P.PNCC_ITS ---
Subjective Subjective Date of Service: 07/18/24 Interval History: 59-year-old gentleman, recent 30+ pack-year smoker admitted on 06/14/2024 with hypoxia and multifocal pneumonia with abscesses. Patient has been treated with empiric antibiotics with essentially negative cultures. His bronchoscopic lavage also had essentially negative cultures. However, clinically his pulmonary abscess got worse an he had an attempted left lower lobectomy on 07/17/2024, however he required completion left pneumonectomy, now being monitored in the intensive care unit. No events overnight. Critical Care Time (minutes): 45 Physical Exam 2 Vital Signs: Vital Signs: Last Vital Signs Temp 98.0 F 07/18/24 08:00 Pulse 69 07/18/24 10:00 Resp 18 07/18/24 10:00 BP 101/46 L 07/18/24 10:00 Pulse Ox 90 L 07/18/24 10:00 O2 Del Method Mechanical Ventil ation 07/18/24 10:00 O2 Flow Rate 7 07/17/24 06:29 FiO2 40 07/18/24 10:22 BMI result Body Mass Index 15.9 Const: General: no acute distress and other (Sedated on ventilatory support) Eyes: Sclerae: sclerae normal EOM: EOMs intact bilaterally Neck: Neck: Yes no lymphadenopathy, Yes trachea midline and Yes supple Resp: Effort & Inspection: normal respiratory effort and no respiratory distress Auscultation: other (No air movement on the left) Cardio: Rate: regular rate Rhythm: regular rhythm Heart sounds: no gallops, no murmurs and no rubs GI: Palpation (GI): Soft to palpation and Other GI palpation findings present ( Nontender) Auscultation: normal bowel sounds Extrem: General: Yes no pedal edema, No clubbing and No cyanosis Objective Data Labs 07/18/24 04:54 07/18/24 04:54 Labs: Laboratory Results - last 24 hr 07/16/24 07/17/24 07/17/24 13:14 12:27 18:11 WBC 18.5 H 17.3 H RBC 5.15 5.05 Hgb 15.7 15.6 Hct 46.4 45.8 MCV 90.1 90.7 MCH 30.5 30.9 MCHC 33.8 34.1 RDW 13.3 13.5 Plt Count 239 TNP MPV 8.6 L Immature Gran % (Auto) 1.9 H Neut % (Auto) 81.6 H Lymph % (Auto) 7.3 L Monroe % (Auto) 6.1 Eos % (Auto) 2.4 Baso % (Auto) 0.7 Lymph # (Auto) 1.3 Monroe # (Auto) 1.1 Eos # (Auto) 0.4 Baso # (Auto) 0.1 Abs Immat Gran (auto) 0.33 H Absolute Neuts (auto) 14.1 H Absolute Nucleated RBC 0.000 0.020 H Nucleated RBC % (auto) 0.0 0.1 Smear Tech's Comments VERIFIED VBG pH VBG pCO2 VBG pO2 VBG HCO3 VBG O2 Saturation VBG Base Excess Sodium 133 L 132 L Potassium 4.8 5.1 Chloride 100 100 Carbon Dioxide 26 25 Anion Gap 12 12 BUN 19 H 16 Creatinine 0.59 0.63 Estim Creat Clear Calc 123.9 116.0 Estimated GFR > 60 > 60 Random Glucose 137 H 135 H Calcium 8.4 D 8.3 L Phosphorus 5.2 H Magnesium 1.7 Total Bilirubin AST ALT Alkaline Phosphatase Total Protein Albumin Blood Type O Positive Antibody Screen NEGATIVE Crossmatch See Detail 07/17/24 07/18/24 07/18/24 18:17 04:54 04:55 WBC 13.9 H RBC 5.03 Hgb 15.2 Hct 45.6 MCV 90.7 MCH 30.2 MCHC 33.3 RDW 13.5 Plt Count 278 MPV 9.0 L Immature Gran % (Auto) 1.2 H Neut % (Auto) 76.5 H Lymph % (Auto) 11.0 L Monroe % (Auto) 6.8 Eos % (Auto) 4.0 Baso % (Auto) 0.5 Lymph # (Auto) 1.5 Monroe # (Auto) 1.0 Eos # (Auto) 0.6 H Baso # (Auto) 0.1 Abs Immat Gran (auto) 0.17 H Absolute Neuts (auto) 10.6 H Absolute Nucleated RBC 0.000 Nucleated RBC % (auto) 0.0 Smear Tech's Comments VBG pH 7.35 7.38 VBG pCO2 56 52 VBG pO2 71 62 VBG HCO3 31 H 31 H VBG O2 Saturation 94.0 91.0 VBG Base Excess 4.4 4.9 Sodium 134 L Potassium 5.0 Chloride 99 Carbon Dioxide 28 Anion Gap 12 BUN 12 Creatinine 0.65 Estim Creat Clear Calc 86.1 Estimated GFR > 60 Random Glucose 131 H Calcium 8.7 Phosphorus 5.0 H Magnesium 1.8 Total Bilirubin 0.3 AST 44 H ALT 47 H Alkaline Phosphatase 103 Total Protein 5.5 L Albumin 2.8 L Blood Type Antibody Screen Crossmatch Microbiology Microbiology Results: Microbiology 07/11/24 10:46 Bronchial Washings Direct Acid Fast Bacilli Smear - Final 07/11/24 10:46 Bronchial Washings Fungal Identification - Preliminary No growth to date. 07/11/24 10:46 Bronchial Washings Gram Stain - Final 07/11/24 10:46 Bronchial Washings Routine Culture - Final No growth after 2 days 07/04/24 08:23 Sputum - Expectorated Gram Stain - Final 07/04/24 08:23 Sputum - Expectorated Sputum Culture - Final Briseida albicans 06/22/24 15:30 Sputum - Expectorated Gram Stain - Final 06/22/24 15:30 Sputum - Expectorated Sputum Culture - Final Briseida albicans 06/14/24 11:04 Blood - Venous Blood Culture - Final No growth after 5 days. 06/14/24 11:04 Blood - Venous Blood Culture - Final No growth after 5 days. 06/14/24 16:08 Sputum - Expectorated Direct Acid Fast Bacilli Smear - Final 06/16/24 03:15 Sputum - Expectorated Direct Acid Fast Bacilli Smear - Final 06/16/24 10:30 Sputum - Expectorated Direct Acid Fast Bacilli Smear - Final Progress Note: A&P Assessment and plan (1) Status post pneumonectomy: Status: Acute (2) Acute hypoxic respiratory failure: Status: Acute (3) Abscess of lung with pneumonia: Status: Acute Assessment and Plan: Assessment: 59-year-old gentleman admitted with pneumonia and pulmonary abscesses requiring pneumonectomy on 07/17/2024 Plan: Neuro: No acute issues. Cardiac: No acute issues. Pulmonary: Pneumonia with pulmonary abscesses, now postoperative day 0 status post left pneumonectomy when transferred from were intubated. Continue to titrate off ventilatory support as tolerated. Thoracic surgery service care appreciated. Renal: No acute issues. Endo: No acute issues. GI: No acute issues. ID: Pulmonary abscess on the background of pneumonia, now status post left pneumonectomy. Continue Levaquin. Heme/Onc: No acute issues. Psych: No acute issues. Miscellaneous: No acute issues. Prophylaxis: Heparin, ppi Diet: NPO Critical care time spent: 45 minute Quality Stroke Does the patient have a stroke diagnosis?: No VTE Prior VTE?: No VTE Risk Level:: Medical - moderate - high VTE Device Contraindication: Treatment Not Indicated VTE Drug Contraindication: N/A - Med Ordered
[2024-07-18] MEDS: HYDROmorphone HCl 1 MG/ML SYRINGE IVPUSH ×4 (11:40→17:55)
--- NOTE | 2024-07-18 12:20 | PC.RT ---
MD order to extubate pt. Pt trialed on PSV since 1130 am, jenn well. Extubation time 1215. Pt had positive cuff leaks x2 pre extubation, no stridor noted post extubation. Pt on 8L [place] NC at this time, will titrate as tolerated.
--- NOTE | 2024-07-18 13:41 | PM.PNTS ---
Subjective Subjective Date of Service: 07/18/24 Interval history: Patient recently extubated. Awake, alert , conversant. Uneventful evening. Chest x-ray this morning showing expected postoperative changes Physical Exam Vital Signs: Vital Signs: Last Vital Signs Temp 98.8 F 07/18/24 12:00 Pulse 76 07/18/24 13:00 Resp 20 07/18/24 13:00 BP 101/46 L 07/18/24 13:00 Pulse Ox 92 07/18/24 13:00 O2 Del Method Mechanical Ventil ation 07/18/24 11:00 O2 Flow Rate 8 07/18/24 13:00 FiO2 40 07/18/24 12:00 BMI result Body Mass Index 15.9 Chest: Other: Dressing clean dry and intact. Minimal output from chest tube which has on water seal. Procedures Date of Service Date of Service: 07/18/24 Progress Note: A&P Assessment and plan (1) Status post pneumonectomy: Status: Acute (2) Abscess of lung with pneumonia: Status: Acute (3) Acute hypoxic respiratory failure: Status: Acute (4) Pneumonia: Status: Acute (5) Hypoxia: Status: Acute Plan Encourage incentive spirometry, liquid diet, out of bed to chair, probably removed chest x-ray tomorrow. Postop day 2/3 are when cardiac dysrhythmias and mucus plugging are anticipated. Time Spent With Patient Time: Total time managing care of this patient today ____ minutes. Quality Stroke Does the patient have a stroke diagnosis?: No VTE Prior VTE?: No VTE Risk Level:: Medical - moderate - high VTE Device Contraindication: Treatment Not Indicated VTE Drug Contraindication: N/A - Med Ordered
--- NOTE | 2024-07-18 17:41 | HO.POSTANES ---
Post Anesthesia Evaluation Post Anesthesia Evaluation Date of Service: 07/18/24 Vital Signs: Vital Signs Temp Pulse Pulse Resp BP BP Pulse Ox 07/18/24 16:59 83 12 102/48 L 94 07/18/24 16:00 89 15 109/53 L 94 07/18/24 15:50 94 135/58 L 07/18/24 15:36 89 134/65 07/18/24 15:33 75 110/49 L 07/18/24 15:03 74 117/52 L 07/18/24 15:00 84 17 105/49 L 91 L 07/18/24 14:00 80 18 109/52 L 91 L 07/18/24 13:00 76 20 101/46 L 92 07/18/24 12:55 90 123/60 07/18/24 12:45 91 15 92 07/18/24 12:19 91 123/54 L 07/18/24 12:14 95 144/65 H 07/18/24 12:09 75 115/48 L 07/18/24 12:00 92 07/18/24 12:00 98.8 F 76 20 107/47 L 92 07/18/24 11:49 76 110/47 L 07/18/24 11:33 07/18/24 11:08 91 117/51 L 07/18/24 11:00 78 18 119/54 L 90 L 07/18/24 10:22 07/18/24 10:00 69 18 101/46 L 90 L 07/18/24 09:00 75 22 H 130/59 L 92 07/18/24 08:12 75 111/54 L 07/18/24 08:12 75 111/54 L 07/18/24 08:00 98.0 F 75 18 100/50 L 93 07/18/24 07:59 93 07/18/24 07:33 07/18/24 07:04 73 106/56 L 07/18/24 07:00 74 18 106/65 96 07/18/24 06:00 73 16 96/62 95 O2 Del Method O2 Flow Rate FiO2 07/18/24 16:59 Nasal Cannula 8 07/18/24 16:00 Nasal Cannula 8 07/18/24 15:50 07/18/24 15:36 07/18/24 15:33 07/18/24 15:03 07/18/24 15:00 Nasal Cannula 8 07/18/24 14:00 9 07/18/24 13:00 8 07/18/24 12:55 07/18/24 12:45 07/18/24 12:19 07/18/24 12:14 07/18/24 12:09 07/18/24 12:00 40 07/18/24 12:00 8 07/18/24 11:49 07/18/24 11:33 40 07/18/24 11:08 07/18/24 11:00 Mechanical Ventilation 40 07/18/24 10:22 40 07/18/24 10:00 Mechanical Ventilation 40 07/18/24 09:00 Mechanical Ventilation 40 07/18/24 08:12 07/18/24 08:12 07/18/24 08:00 Mechanical Ventilation 40 07/18/24 07:59 30 07/18/24 07:33 30 07/18/24 07:04 07/18/24 07:00 Mechanical Ventilation 40 07/18/24 06:00 Mechanical Ventilation 40 Anesthesia: General Endotracheal-GETA Mental Status: Awake Pain Control: Satisfactory Nausea/Vomiting: None Hydration: Adequate Anesthesia-Related Issues: No Anes. Related Issues
--- NOTE | 2024-07-18 18:14 | PC.NURSE ---
Assumed care at 0700- Pt. mechanically vented and sedated. Sedation vacation iniated approx. 1050, pt. awake with eyes open spontaneously, tracking, following commands, nodding yes and no to questions, OLEG. PSV trial initiated by RT. Pt. successfully extubated by RT with MD order at 1215- placed on 8L garcia NC. Pt. A&Ox4 with soft, mumbled voice. SR on tele, HR 70s-90s. Norepinephrine gtt weaned per JUN. L chest tube with intermittent gurgling sound, approx 120cc sherlyn red bloody drainage this shift. Chest tube clamped at approx 1400 per thoracic surgery. Pt. O2 sats maintain >92%, coughing up thick mitchell sputum, suctioning self. Pt. c/o severe pain to L chest- medicated with PRN dilaudid per JUN. Nursing swallow screen performed, pt. passed. Pt with no appetite. Rizvi removed at 1730, DTV by 2330- [place] catheter in place. Q2 repositioning performed hovermat system in place. Family updated by this RN. Plan of care ongoing.
[2024-07-18] MEDS: Morphine Sulfate/NS 100 MG/100 ML PLAST..BAG IVCONT (20:43)
[2024-07-18] MEDS: Morphine Sulfate 4 MG/ML CARTRIDGE IVPUSH (20:56)
[2024-07-18] MEDS: ondansetron HCL 4 MG/2 ML VIAL IVPUSH (21:28)
[2024-07-19] VITALS (47 sets, daily range): BP systolic 74–135; BP diastolic 42–61; PULSE 81–130; RESP 9–18; TEMP 36.2–36.6; O2SAT 88–96; BMI 15.8
[2024-07-19] MEDS: Norepinephrine Bitartrate/D5W 8 MG/250 ML PLAST..BAG 6.17 MG IVCONT (03:19)
[2024-07-19] MEDS: Albumin Human 25 % 100 ML IV (03:19)
[2024-07-19 05:01] LABS: VBG HCO3 33 mmol/L (22-26); VBG pCO2 61 mmHg; VBG pH 7.34 (7.32-7.43); VBG pO2 67 mmHg
[2024-07-19 05:02] LABS: MANUAL DIFF FLAG NO
[2024-07-19 05:12] LABS: Basophils Absolute Auto 0.1 X10*3/uL (0.0-0.2); Basophils Percent Auto 0.7 % (0-2); Eosinophils Absolute Auto 0.8 X10*3/uL (0.0-0.4); Eosinophils Percent Auto 6.1 % (0-4); Hematocrit 38.4 % (42.0-52.0); Hemoglobin 12.6 g/dl (14.0-18.0); Imm Gran Abs Auto 0.12 X10*3/uL (0.00-0.03); Lymphocytes Percent Auto 8.4 % (20-40); Mean Corpuscular HGB Conc 32.8 g/dl (31.0-36.0); Mean Corpuscular Hemoglobin 30.2 pg (27.0-33.0); Mean Corpuscular Volume 92.1 fL (80.0-98.0); Mean Platelet Volume 8.9 fL (9.4-12.4); Monocytes Absolute Auto 0.8 X10*3/uL (0.1-1.2); Monocytes Percent Auto 6.4 % (2-11); Neutrophils Absolute Auto 9.5 x10*3/uL (2.0-8.3); Neutrophils Percent Auto 77.4 % (45-73); Platelet Count 206 X10*3/uL (160-400); Red Blood Count 4.17 X10*6/uL (4.60-5.80); Red Cell Distribution Width 13.2 % (11.0-16.0); White Blood Count 12.3 X10*3/uL (4.8-10.8)
[2024-07-19 05:29] LABS: Albumin Level 4.2 g/dL (3.5-5.0); Anion Gap 15 (12-20); Blood Urea Nitrogen 11 mg/dL (9-16); Calcium 9.7 mg/dL (8.4-10.2); Carbon Dioxide 30 mmol/L (22-29); Chloride 98 mmol/L (96-108); Creatinine Clr Calc Pharmacy 91.8; Estimated Glomerular Filt Rate > 60; Glucose Random 80 mg/dL (60-115); Magnesium 1.9 mg/dL (1.6-2.6); Phosphorus 4.1 mg/dL (2.7-4.5); Potassium 4.5 mmol/L (3.3-5.1); Sodium 138 mmol/L (135-145)
--- NOTE | 2024-07-19 06:01 | PC.NURSE ---
assumed care 1900 pt alert and oriented c/o 01/15 duck operator aware, new order for COMSEC MANAGER, admin as order see earth boring machine operator paper documentation. pt educated on earth boring machine operator use. chest tube in place, clamped at this time.trevino removed prior shift dvt 2300 bs 237 no action at that time. next dtv [id number]. attempted to straight cath but unable to advance cath by two RNs. STEAMTABLE WORKER made aware. no history of trouble urinating, prostate issues, continue to try encourage pt to void. re bladder scan three hours. pt repo q2 for comfort. able to move self in bed as needed. encouraged IS cough and deep breathing.
[2024-07-19 06:14] LABS: Venous Blood Gas Refer to POC result
--- NOTE | 2024-07-19 08:05 | PC.RT ---
Pt seen and assessed this am. Pt having pain, RN aware. Pt able to use IS for deep breathing and able to cough and use yankauer suction. Thoracic to see pt today, will provide CPT after thoracic sees pt and pain is controlled.
[2024-07-19] MEDS: 0.9 % Sodium Chloride Flush 3 ML SYRINGE IVFLUSH ×2 (08:32→23:46)
[2024-07-19] MEDS: levoFLOXacin/D5W 750 MG/150 ML PIGGYBACK 100 MG IV (08:32)
--- NOTE | 2024-07-19 09:45 | P.PNCC_ITS ---
Subjective Subjective Date of Service: 07/19/24 Interval History: 59-year-old gentleman, recent 30+ pack-year smoker admitted on 06/14/2024 with hypoxia and multifocal pneumonia with abscesses. Patient has been treated with empiric antibiotics with essentially negative cultures. His bronchoscopic lavage also had essentially negative cultures. However, clinically his pulmonary abscess got worse an he had an attempted left lower lobectomy on 07/17/2024, however he required completion left pneumonectomy, now being monitored in the intensive care unit. Extubated 07/18/2024. No events overnight. Critical Care Time (minutes): 0 Physical Exam 2 Vital Signs: Vital Signs: Last Vital Signs Temp 97.5 F 07/19/24 08:00 Pulse 93 07/19/24 09:00 Resp 10 L 07/19/24 09:00 BP 107/46 L 07/19/24 09:00 Pulse Ox 92 07/19/24 09:00 O2 Del Method Nasal Cannula 07/19/24 09:00 O2 Flow Rate 8 07/19/24 09:00 FiO2 40 07/18/24 12:00 BMI result Body Mass Index 15.8 Const: General: no acute distress, alert and awake Eyes: Sclerae: sclerae normal EOM: EOMs intact bilaterally Neck: Neck: Yes no lymphadenopathy, Yes trachea midline and Yes supple Resp: Effort & Inspection: normal respiratory effort and no respiratory distress Auscultation: other (No air movement on the left) Cardio: Rate: regular rate Rhythm: regular rhythm Heart sounds: no gallops, no murmurs and no rubs GI: Palpation (GI): Soft to palpation and Other GI palpation findings present ( Nontender) Auscultation: normal bowel sounds Extrem: General: Yes no pedal edema, No clubbing and No cyanosis Objective Data Labs 07/19/24 04:57 07/19/24 04:57 Labs: Laboratory Results - last 24 hr 07/16/24 07/19/24 13:14 04:57 WBC 12.3 H RBC 4.17 L Hgb 12.6 L Hct 38.4 L MCV 92.1 MCH 30.2 MCHC 32.8 RDW 13.2 Plt Count 206 D MPV 8.9 L Immature Gran % (Auto) 1.0 H Neut % (Auto) 77.4 H Lymph % (Auto) 8.4 L [place] % (Auto) 6.4 Eos % (Auto) 6.1 H Baso % (Auto) 0.7 Lymph # (Auto) 1.0 L [place] # (Auto) 0.8 Eos # (Auto) 0.8 H Baso # (Auto) 0.1 Abs Immat Gran (auto) 0.12 H Absolute Neuts (auto) 9.5 H Absolute Nucleated RBC 0.000 Nucleated RBC % (auto) 0.0 VBG pH 7.34 VBG pCO2 61 VBG pO2 67 VBG HCO3 33 H VBG O2 Saturation 93.0 VBG Base Excess 6.0 Sodium 138 Potassium 4.5 Chloride 98 Carbon Dioxide 30 H Anion Gap 15 BUN 11 Creatinine 0.61 Estim Creat Clear Calc 91.8 Estimated GFR > 60 Random Glucose 80 Calcium 9.7 D Phosphorus 4.1 Magnesium 1.9 Albumin 4.2 Blood Type O Positive Antibody Screen NEGATIVE Crossmatch See Detail Microbiology Microbiology Results: Microbiology 07/11/24 10:46 Bronchial Washings Direct Acid Fast Bacilli Smear - Final 07/11/24 10:46 Bronchial Washings Fungal Identification - Preliminary No growth to date. 07/11/24 10:46 Bronchial Washings Gram Stain - Final 07/11/24 10:46 Bronchial Washings Routine Culture - Final No growth after 2 days 07/04/24 08:23 Sputum - Expectorated Gram Stain - Final 07/04/24 08:23 Sputum - Expectorated Sputum Culture - Final Briseida albicans 06/22/24 15:30 Sputum - Expectorated Gram Stain - Final 06/22/24 15:30 Sputum - Expectorated Sputum Culture - Final Briseida albicans 06/14/24 11:04 Blood - Venous Blood Culture - Final No growth after 5 days. 06/14/24 11:04 Blood - Venous Blood Culture - Final No growth after 5 days. 06/14/24 16:08 Sputum - Expectorated Direct Acid Fast Bacilli Smear - Final 06/16/24 03:15 Sputum - Expectorated Direct Acid Fast Bacilli Smear - Final 06/16/24 10:30 Sputum - Expectorated Direct Acid Fast Bacilli Smear - Final Progress Note: A&P Assessment and plan (1) Abscess of lung with pneumonia: Status: Acute (2) Status post pneumonectomy: Status: Acute Plan Assessment: 59-year-old gentleman admitted with pneumonia and pulmonary abscesses requiring pneumonectomy on 07/17/2024 Plan: Neuro: No acute issues. Cardiac: No acute issues. Pulmonary: Pneumonia with pulmonary abscesses, now postoperative day 2 status post left pneumonectomy. Extubated 07/18/2024. Thoracic surgery service care appreciated. Renal: No acute issues. Endo: No acute issues. GI: No acute issues. ID: Pulmonary abscess on the background of pneumonia, now status post left pneumonectomy. Continue Levaquin. Heme/Onc: No acute issues. Psych: No acute issues. Miscellaneous: No acute issues. Prophylaxis: Heparin Diet: Regular Quality Stroke Does the patient have a stroke diagnosis?: No VTE Prior VTE?: No VTE Risk Level:: Medical - moderate - high VTE Device Contraindication: Treatment Not Indicated VTE Drug Contraindication: N/A - Med Ordered
--- NOTE | 2024-07-19 12:10 | ECG_ITS ---
Test Reason : tachycardia Blood Pressure : */* mmHG Vent. Rate : 107 BPM Atrial Rate : 107 BPM P-R Int : 144 ms QRS Dur : 78 ms QT Int : 324 ms P-R-T Axes : 79 74 68 degrees QTcB Int : 432 ms Poor data quality Sinus tachycardia Low voltage QRS Borderline ECG When compared with ECG of 14-Jun-2024 10:59, Poor data quality in current ECG precludes serial comparison Referred By: Jovanni Calloway Electronically Signed By: SHELIA GREEN MD
[2024-07-19] MEDS: Digoxin 0.5 MG/2 ML AMPUL 0.25 MG IVPUSH ×2 (12:56→18:26)
--- NOTE | 2024-07-19 13:26 | PC.RT ---
CPT provided w/ percussor. Pt able to cough, moderate amounts of yellow creamy secretions suctioned orally. Pt O2 requirements have increased, pt currently on 15L oxymask SATs 86%. Pt placed on high flow NC 40L/40%, jenn well, SATs 93%.
[2024-07-19] MEDS: Furosemide 20 MG/2 ML VIAL IVPUSH (13:27)
[2024-07-19] MEDS: Acetaminophen 1,000 MG/100 ML PIGGYBACK 400 MG IV (13:27)
--- NOTE | 2024-07-19 16:03 | P.PNTS_ITS ---
Subjective Subjective Date of Service: 07/19/24 Interval history: Patient was somewhat somnolent but responsive. No acute respiratory distress. Patient was no longer having the prodigious copious sputum output any longer since surgery. Patient went into SVT which is very common status post pneumonectomy. Chest X- ray show slow but steady filling of left hemithorax. Right lung demonstrates either some consolidation or perhaps CHF. Physical Exam Vital Signs: Vital Signs: Last Vital Signs Temp 97.3 F 07/19/24 12:00 Pulse 102 H 07/19/24 15:56 Resp 12 07/19/24 15:56 BP 97/51 L 07/19/24 15:56 Pulse Ox 93 07/19/24 15:56 O2 Del Method High Flow Nasal C annula 07/19/24 15:56 O2 Flow Rate 40 07/19/24 15:56 FiO2 40 07/19/24 15:56 BMI result Body Mass Index 15.8 Const: Other: Patient has not really had any significant diet since extubation. Chest: Other: Dressing clean dry and intact. Chest tube was removed and occlusive dressing applied GI: Other: Abdomen is soft, benign Procedures Date of Service Date of Service: 07/19/24 Progress Note: A&P Assessment and plan (1) Status post pneumonectomy: Status: Acute Plan Continue restorative measures. SVT as noted above which is expected. Concern is to avoid post pneumonectomy pulmonary edema. Consider diuresis. If patient is not able to tolerate p.o., would suggest IR placed feeding tube so as to avoid left bronchial stump issues with bedside feeding tube placement. Time Spent With Patient Time: Total time managing care of this patient today ____ minutes. Quality Stroke Does the patient have a stroke diagnosis?: No VTE Prior VTE?: No VTE Risk Level:: Medical - moderate - high VTE Device Contraindication: Treatment Not Indicated VTE Drug Contraindication: N/A - Med Ordered
[2024-07-19] MEDS: Morphine Sulfate/NS 100 MG/100 ML PLAST..BAG IVCONT (16:30)
--- NOTE | 2024-07-19 17:01 | PC.NURSE ---
Assumed care at 0700- Pt. A&Ox4, but vague with flat affect- CUSTOMER SUPPORT AGENT pump in use, see paper flowsheet. Pt. SR on tele, HR 70s-90s, O2 sats >92% on 8L garcia. Chest tube remians clamed per thoracic surgery Pt. unable to void, bladder scanned for >500cc. 16 fr. coude trevino placed by this RN per MD order, draining dark vira urine. At approx 1100 pt. HR 100-110s, O2 sats 87-90% on 8L garcia. Pt. with increased diaphoresis, and c/o increased SOB. MD notified. MD and RT at bedside to inspect chest tube. EKG done at 1230 for tachycardia- see report. At approx 1248 pt. with short episode of SVT HR 190s, SBPs 70s-80s with MAPs <65- norepinephrine titrated per JUN. MD notified, IVP digoxin given per JUN. Pt. ST with HR 110-130s, with short bursts SVT. 02 sats 84-88%, increased WOB- MD aware, pt. placed on HFNC 40L 40% by RT. 20 mg IVP lasix given. Pt. remained A&Ox4, but with decreased verbal responsiveness and blank stare. CUSTOMER SUPPORT AGENT stopped per MD. At approx. 1545 chest tube removed by Dr. Gee. Pt. repositioned at 1611 to find moderate amt bloody draining from chest tube site-MD notified. Lovenox held, 1800 labs ordered. Pt. more awake/alert, c/o 10/10 pain- CUSTOMER SUPPORT AGENT pump restarted at basal rate only- see order. Pt with decreased SOB/WOB, 02 sats 94%, placed back on 8L garcia. Currently, pt. resting in bed with eyes closed. HR 98, BP 100/52 (68) via R radial [place], 02 93% on 8L garcia, RR 12, pt. remained afebrile through shift. Q2 repositioning performed, hovermat system in place. Family updated via telephone by this RN. Plan of care ongoing.
[2024-07-19 18:12] LABS: MANUAL DIFF FLAG NO
[2024-07-19 18:12] LABS: VBG Base Excess 2.7 mmol/L; VBG HCO3 30 mmol/L (22-26); VBG pCO2 59 mmHg; VBG pH 7.31 (7.32-7.43); VBG pO2 54 mmHg
[2024-07-19 18:15] LABS: Basophils Absolute Auto 0.1 X10*3/uL (0.0-0.2); Basophils Percent Auto 0.6 % (0-2); Eosinophils Absolute Auto 0.1 X10*3/uL (0.0-0.4); Eosinophils Percent Auto 0.7 % (0-4); Hematocrit 45.6 % (42.0-52.0); Hemoglobin 14.6 g/dl (14.0-18.0); Imm Gran Abs Auto 0.12 X10*3/uL (0.00-0.03); Imm Gran Pct Auto 0.7 % (0.0-0.4); Lymphocytes Absolute Auto 0.6 X10*3/uL (1.2-4.9); Lymphocytes Percent Auto 3.1 % (20-40); Mean Corpuscular Hemoglobin 30.6 pg (27.0-33.0); Mean Corpuscular Volume 95.6 fL (80.0-98.0); Mean Platelet Volume 8.7 fL (9.4-12.4); Monocytes Absolute Auto 1.1 X10*3/uL (0.1-1.2); Monocytes Percent Auto 6.3 % (2-11); Neutrophils Absolute Auto 15.7 x10*3/uL (2.0-8.3); Neutrophils Percent Auto 88.6 % (45-73); Platelet Count 242 X10*3/uL (160-400); Red Blood Count 4.77 X10*6/uL (4.60-5.80); Red Cell Distribution Width 13.2 % (11.0-16.0); White Blood Count 17.7 X10*3/uL (4.8-10.8)
[2024-07-19 18:36] LABS: Alanine Aminotransferase 35 U/L (0-40); Albumin Level 4.1 g/dL (3.5-5.0); Alkaline Phosphatase 88 U/L (39-117); Anion Gap 21 (12-20); Aspartate Amino Transferase 82 U/L (5-37); Bilirubin Total 0.8 mg/dL (0.0-1.0); Blood Urea Nitrogen 16 mg/dL (9-16); Calcium 10.1 mg/dL (8.4-10.2); Carbon Dioxide 25 mmol/L (22-29); Chloride 98 mmol/L (96-108); Creatinine Clr Calc Pharmacy 82.5; Estimated Glomerular Filt Rate > 60; Glucose Random 88 mg/dL (60-115); Magnesium 1.9 mg/dL (1.6-2.6); Phosphorus 5.6 mg/dL (2.7-4.5); Potassium 5.1 mmol/L (3.3-5.1); Sodium 139 mmol/L (135-145); Total Protein 6.9 g/dL (6.5-8.0)
[2024-07-19 20:40] LABS: Venous Blood Gas Refer to POC result
[2024-07-19] MEDS: Norepinephrine Bitartrate/D5W 8 MG/250 ML PLAST..BAG 20.97 MG IVCONT (21:19)
[2024-07-20] VITALS (39 sets, daily range): BP systolic 88–146; BP diastolic 46–72; PULSE 86–135; RESP 11–34; TEMP 36.1–37; O2SAT 88–94; BMI 18.3
[2024-07-20 05:33] LABS: ABG Base Excess 7.2 mmol/L; ABG HCO3 29 mmol/L (22-26); ABG pCO2 32 mmHg (32-45); ABG pH 7.56 (7.35-7.45); ABG pO2 198 mmHg (83-108)
[2024-07-20 05:55] LABS: MANUAL DIFF FLAG NO
[2024-07-20 05:58] LABS: Basophils Absolute Auto 0.1 X10*3/uL (0.0-0.2); Basophils Percent Auto 0.5 % (0-2); Eosinophils Absolute Auto 0.4 X10*3/uL (0.0-0.4); Eosinophils Percent Auto 3.3 % (0-4); Hematocrit 42.2 % (42.0-52.0); Hemoglobin 13.6 g/dl (14.0-18.0); Imm Gran Abs Auto 0.11 X10*3/uL (0.00-0.03); Imm Gran Pct Auto 0.9 % (0.0-0.4); Lymphocytes Absolute Auto 0.6 X10*3/uL (1.2-4.9); Lymphocytes Percent Auto 4.4 % (20-40); Mean Corpuscular HGB Conc 32.2 g/dl (31.0-36.0); Mean Corpuscular Hemoglobin 30.6 pg (27.0-33.0); Mean Platelet Volume 9.2 fL (9.4-12.4); Monocytes Percent Auto 7.7 % (2-11); Neutrophils Absolute Auto 10.5 x10*3/uL (2.0-8.3); Neutrophils Percent Auto 83.2 % (45-73); Platelet Count 266 X10*3/uL (160-400); Red Blood Count 4.44 X10*6/uL (4.60-5.80); Red Cell Distribution Width 13.2 % (11.0-16.0); White Blood Count 12.6 X10*3/uL (4.8-10.8)
[2024-07-20 06:19] LABS: Albumin Level 3.8 g/dL (3.5-5.0); Anion Gap 15 (12-20); Blood Urea Nitrogen 18 mg/dL (9-16); Calcium 10.2 mg/dL (8.4-10.2); Carbon Dioxide 31 mmol/L (22-29); Chloride 98 mmol/L (96-108); Creatinine Clr Calc Pharmacy 85.1; Estimated Glomerular Filt Rate > 60; Glucose Random 113 mg/dL (60-115); Potassium 4.5 mmol/L (3.3-5.1); Sodium 139 mmol/L (135-145)
--- NOTE | 2024-07-20 06:59 | PC.NURSE ---
Critical Care Nursing Note? Assumed care of the patient at 1900, patient alert and oriented. Patient remained on 8LNC (garcia), sinus rhythm on telemetry.? Patient with minimal urine output, Kristine Machado NP notified.? TRAINING EXECUTIVE pump maintained throughout shift.
--- NOTE | 2024-07-20 07:21 | PM.PNGS ---
Subjective Subjective Date of Service: 07/20/24 <Latosha Rocha - Last Filed: 07/20/24 07:31> 07/20/24 <Zenaida Meza PA-C - Last Filed: 07/20/24 08:12> 07/20/24 <Kuldeep Gee MD - Last Filed: 07/20/24 08:22> Interval history: Patient was somnolent but responsive, spoke to his nursing staff and his dressing had less / minimal drainage today since yesterdays chest tube removal. He reported wanting breakfast as well. <Latosha Rocha - Last Filed: 07/20/24 07:31> Physical Exam Vital Signs: Vital Signs: Last Vital Signs Temp 97.0 F 07/20/24 04:00 Pulse 98 07/20/24 06:00 Resp 16 07/20/24 06:00 BP 119/52 L 07/20/24 06:00 Pulse Ox 91 L 07/20/24 06:00 O2 Del Method Nasal Cannula 07/20/24 06:00 O2 Flow Rate 8 07/20/24 06:00 FiO2 40 07/19/24 15:56 BMI result Body Mass Index 15.8 <Latosha Rocha - Last Filed: 07/20/24 07:31> Const: General: tired appearing; No acute distress <Zenaida Meza PA-C - Last Filed: 07/20/24 08:12> Eyes: Pupils: Pinpoint pupils <Latosha Rocha - Last Filed: 07/20/24 07:31> Chest: Other: Dressing in tact with minimal blood / drainage Incision site in tact with steri strips <Latosha Rocha - Last Filed: 07/20/24 07:31> Other: chest tube site dressing intact with some serosanguineous staining Incision site clean with steri strips <YEN Marks Last Filed: 07/20/24 08:12> Resp: Effort & Inspection: normal respiratory effort, not labored, no respiratory distress, no retractions, not tachypneic, no tracheal deviation and no use of accessory muscles <YEN Marks Last Filed: 07/20/24 08:12> Cardio: Rate: regular rate <Zenaida Meza PA-C - Last Filed: 07/20/24 08:12> Skin: General skin exam: no rashes or lesions noted <Zenaida Meza PA-C - Last Filed: 07/20/24 08:12> Objective Data Active Medications Albuterol/Ipratropium (Albuterol/Iprat 2.5/0.5mg 3 Ml Ampul.Neb) 3 ml INHALE Q4H PRN PRN Reason: Wheezing Last Admin: 07/16/24 18:37 Dose: 3 ml Documented By: SANCHEZ Heparin Sodium (Porcine) (Heparin Sodium,Porcine 5,000 Unit/Ml Vial) 5,000 unit SUBCUT Q12H [facility] Last Admin: 07/19/24 21:22 Dose: Not Given Documented By: RAN Non-Admin Reason: Physician Held Med Comments: per Kristine Machado, OLEKSANDR Levofloxacin (Levaquin) 750 mg in 150 mls @ 100 mls/hr IV Q24H [facility] Last Infusion: 07/19/24 10:45 Dose: Infused Documented By: ONDINA Norepinephrine Bitartrate (Levophed) 8 mg in 250 mls @ 0 mls/hr IVCONT .Q0M [facility]; Protocol Last Titration: 07/20/24 00:08 Dose: 0.15 mcg/kg/min, 18.51 mls/hr Documented By: RAN Morphine Sulfate (Morphine Sulfate/Ns) 100 mg in 100 mls @ 0 mls/hr IVCONT .Q0M [facility]; Protocol Last Admin: 07/19/24 16:30 Dose: 2 mg/hr, 2 mls/hr Documented By: ONDINA Naloxone HCl (Naloxone Hcl 0.4 Mg/Ml Vial) 0.2 mg IVPUSH Q2M PRN PRN Reason: Excessive sedation or RR < 8 Ondansetron HCl (Ondansetron Hcl 4 Mg/2 Ml Vial) 4 mg IVPUSH Q8H PRN PRN Reason: Nausea and Vomiting Last Admin: 07/18/24 21:28 Dose: 4 mg Documented By: KIARRA Sodium Chloride (0.9 % Sodium Chloride Flush 3 Ml Syringe) 3 ml IVFLUSH QSHIFT [facility] Last Admin: 07/19/24 23:46 Dose: 3 ml Documented By: RAN Sodium Chloride (0.9 % Sodium Chloride Flush 10 Ml Syringe) 5 ml IVFLUSH QSHIFT [facility] <Latosha Aj - Last Filed: 07/20/24 07:31> Labs CBC & Chem 7: 07/20/24 05:22 07/20/24 05:22 <Latosha Aj - Last Filed: 07/20/24 07:31> Labs: Laboratory Results - last 24 hr 07/19/24 07/19/24 07/20/24 18:06 18:08 05:22 MCV 95.6 95.0 MCH 30.6 30.6 MCHC 32.0 32.2 RDW 13.2 13.2 Plt Count 242 266 MPV 8.7 L 9.2 L Immature Gran % (Auto) 0.7 H 0.9 H Neut % (Auto) 88.6 H 83.2 H Lymph % (Auto) 3.1 L 4.4 L [place] % (Auto) 6.3 7.7 Eos % (Auto) 0.7 3.3 Baso % (Auto) 0.6 0.5 Lymph # (Auto) 0.6 L 0.6 L [place] # (Auto) 1.1 1.0 Eos # (Auto) 0.1 0.4 Baso # (Auto) 0.1 0.1 Abs Immat Gran (auto) 0.12 H 0.11 H Absolute Neuts (auto) 15.7 H 10.5 H Absolute Nucleated RBC 0.000 0.000 Nucleated RBC % (auto) 0.0 0.0 O2 Saturation ABG pH at Pt Temp ABG pCO2 at Pt Temp ABG pO2 at Pt Temp ABG HCO3 ABG Base Excess (Actual) VBG pH 7.31 L VBG pCO2 59 VBG pO2 54 VBG HCO3 30 H VBG O2 Saturation 85.0 VBG Base Excess 2.7 Anion Gap 21 H 15 Estim Creat Clear Calc 82.5 85.1 Estimated GFR > 60 > 60 Random Glucose 88 113 Calcium 10.1 10.2 Phosphorus 5.6 H 4.0 Magnesium 1.9 2.0 Total Bilirubin 0.8 AST 82 H ALT 35 Alkaline Phosphatase 88 Total Protein 6.9 Albumin 4.1 3.8 07/20/24 05:28 MCV MCH MCHC RDW Plt Count MPV Immature Gran % (Auto) Neut % (Auto) Lymph % (Auto) [place] % (Auto) Eos % (Auto) Baso % (Auto) Lymph # (Auto) [place] # (Auto) Eos # (Auto) Baso # (Auto) Abs Immat Gran (auto) Absolute Neuts (auto) Absolute Nucleated RBC Nucleated RBC % (auto) O2 Saturation 99.0 ABG pH at Pt Temp 7.56 H ABG pCO2 at Pt Temp 32 ABG pO2 at Pt Temp 198 H ABG HCO3 29 H ABG Base Excess (Actual) 7.2 VBG pH VBG pCO2 VBG pO2 VBG HCO3 VBG O2 Saturation VBG Base Excess Anion Gap Estim Creat Clear Calc Estimated GFR Random Glucose Calcium Phosphorus Magnesium Total Bilirubin AST ALT Alkaline Phosphatase Total Protein Albumin <Latosha Aj - Last Filed: 07/20/24 07:31> Procedures Date of Service Date of Service: 07/20/24 <Latosha Aj - Last Filed: 07/20/24 07:31> 07/20/24 <Zenaida Meza PA-C - Last Filed: 07/20/24 08:12> 07/20/24 <Kuldeep Gee MD - Last Filed: 07/20/24 08:22> Progress Note: A&P Assessment and plan (1) Status post pneumonectomy: Status: Acute <Latosha Aj - Last Filed: 07/20/24 07:31> (2) Acute hypoxic respiratory failure: Status: Acute <Latosha Aj - Last Filed: 07/20/24 07:31> (3) Abscess of lung with pneumonia: Status: Acute <Latosha Aj - Last Filed: 07/20/24 07:31> Assessment and Plan: Mani is POD #3 from open thoracotomy for pneumonectomy. Patient was somewhat somnolent with pinpoint pupils, but responding. Spoke with nursing and they stated that he has been in a lot of pain and on morphine drip. He becomes more responsive when they shut it off. She would like to get him out of bed and working with PT today. He has not eaten much, but stated he wanted breakfast this morning, going to try that. Encouraged spirometry as well. <Latosha Aj - Last Filed: 07/20/24 07:31> Mani is POD #3 from open thoracotomy for pneumonectomy. Patient was somewhat somnolent with pinpoint pupils, but responding. Spoke with nursing and they stated that he has been in a lot of pain and on morphine drip. He becomes more responsive when they shut it off. She would like to get him out of bed and working with PT today. He has not eaten much, but stated he wanted breakfast this morning, going to try that. Encouraged spirometry as well. Agree with above assessment. POD #3 s/p left thoracotomy, initially left lower lobectomy extended to left completion pneumonectomy for pulmonary sepsis, necrotizing abscess of left lower and upper lobe. Extubated over the weekend and chest tube removed yesterday. Currently stable on pressors, disoriented on exam this morning, perhaps due to opioids- receiving 2mg morphine every hour. Given lasix yesterday x2, CXR this AM shows persistent consolidation. Concern is to avoid post pneumonectomy pulmonary edema. Continue restorative measures, diuresis as needed. Incentive spirometery 10x hr. Encouraged OOB today, at least sitting on side of bed, discussed with RN. PO intake as tolerated. Consider TPN if oral intake remains minimal. <Zenaida Meza PA-C - Last Filed: 07/20/24 08:12> Mani is POD #3 from open thoracotomy for pneumonectomy. Patient was somewhat somnolent with pinpoint pupils, but responding. Spoke with nursing and they stated that he has been in a lot of pain and on morphine drip. He becomes more responsive when they shut it off. She would like to get him out of bed and working with PT today. He has not eaten much, but stated he wanted breakfast this morning, going to try that. Encouraged spirometry as well. Agree with above assessment. POD #3 s/p left thoracotomy, initially left lower lobectomy extended to left completion pneumonectomy for pulmonary sepsis, necrotizing abscess of left lower and upper lobe. Extubated over the weekend and chest tube removed yesterday. Currently stable on pressors, disoriented on exam this morning, perhaps due to opioids- receiving 2mg morphine every hour. Given lasix yesterday x2, CXR this AM shows persistent consolidation. Concern is to avoid post pneumonectomy pulmonary edema. Continue restorative measures, diuresis as needed. Incentive spirometery 10x hr. Encouraged OOB today, at least sitting on side of bed, discussed with RN. PO intake as tolerated. Consider TPN if oral intake remains minimal. As noted above. Consider Dobbhoff feeding tube under fluoroscopy <Kuldeep Gee MD - Last Filed: 07/20/24 08:22> Time Spent With Patient Time: Total time managing care of this patient today ____ minutes. <Latoshakathy Garzono - Last Filed: 07/20/24 07:31> Quality Stroke Does the patient have a stroke diagnosis?: No <Latosha Aj - Last Filed: 07/20/24 07:31> VTE Prior VTE?: No <Latosha Aj - Last Filed: 07/20/24 07:31> VTE Risk Level:: Medical - moderate - high <Latosha Aj - Last Filed: 07/20/24 07:31> VTE Device Contraindication: Treatment Not Indicated <Latosha Aj - Last Filed: 07/20/24 07:31> VTE Drug Contraindication: N/A - Med Ordered <Latosha Aj - Last Filed: 07/20/24 07:31>
[2024-07-20] MEDS: 0.9 % Sodium Chloride Flush 10 ML SYRINGE 5 ML IVFLUSH ×3 (08:41→21:41)
--- NOTE | 2024-07-20 08:56 | P.PNCC_ITS ---
Subjective Subjective Date of Service: 07/20/24 Interval History: continues to be on levophed for vasopresser support Critical Care Time (minutes): 35 Physical Exam 2 Vital Signs: Vital Signs: Last Vital Signs Temp 97.2 F 07/20/24 08:00 Pulse 103 H 07/20/24 08:00 Resp 17 07/20/24 08:00 BP 116/57 L 07/20/24 08:00 Pulse Ox 89 L 07/20/24 08:00 O2 Del Method Nasal Cannula 07/20/24 08:00 O2 Flow Rate 8 07/20/24 08:00 FiO2 40 07/19/24 15:56 BMI result Body Mass Index 15.8 General: Not in acute distress, tired appearing Nutritional Appearance: well nourished and overweight Eyes: appearance normal, both eyes and all related structures; Alignment and Position: alignment normal and position normal Neck: No lymphadenopathy, no thyromegaly Resp: bilateral air entry equal, decreased breath sounds in left lung Cardio: Regular rate, regular rhythm; Heart sounds: S1 normal heart sound present and S2 normal heart sound present GI: soft, nontender, no guarding, no hepatosplenomegaly : bladder normal to inspection, bladder normal to palpation, no renal angle tenderness Skin: no rashes or lesions noted and elasticity normal Neuro: oriented to person, oriented to place, oriented to time and moves all extremities Objective Data Labs 07/20/24 05:22 07/20/24 05:22 Labs: Laboratory Results - last 24 hr 07/19/24 07/19/24 07/20/24 18:06 18:08 05:22 WBC 17.7 H 12.6 H RBC 4.77 4.44 L Hgb 14.6 13.6 L Hct 45.6 42.2 MCV 95.6 95.0 MCH 30.6 30.6 MCHC 32.0 32.2 RDW 13.2 13.2 Plt Count 242 266 MPV 8.7 L 9.2 L Immature Gran % (Auto) 0.7 H 0.9 H Neut % (Auto) 88.6 H 83.2 H Lymph % (Auto) 3.1 L 4.4 L [place] % (Auto) 6.3 7.7 Eos % (Auto) 0.7 3.3 Baso % (Auto) 0.6 0.5 Lymph # (Auto) 0.6 L 0.6 L [place] # (Auto) 1.1 1.0 Eos # (Auto) 0.1 0.4 Baso # (Auto) 0.1 0.1 Abs Immat Gran (auto) 0.12 H 0.11 H Absolute Neuts (auto) 15.7 H 10.5 H Absolute Nucleated RBC 0.000 0.000 Nucleated RBC % (auto) 0.0 0.0 O2 Saturation ABG pH at Pt Temp ABG pCO2 at Pt Temp ABG pO2 at Pt Temp ABG HCO3 ABG Base Excess (Actual) VBG pH 7.31 L VBG pCO2 59 VBG pO2 54 VBG HCO3 30 H VBG O2 Saturation 85.0 VBG Base Excess 2.7 Sodium 139 139 Potassium 5.1 4.5 Chloride 98 98 Carbon Dioxide 25 31 H Anion Gap 21 H 15 BUN 16 18 H Creatinine 0.67 0.65 Estim Creat Clear Calc 82.5 85.1 Estimated GFR > 60 > 60 Random Glucose 88 113 Calcium 10.1 10.2 Phosphorus 5.6 H 4.0 Magnesium 1.9 2.0 Total Bilirubin 0.8 AST 82 H ALT 35 Alkaline Phosphatase 88 Total Protein 6.9 Albumin 4.1 3.8 07/20/24 05:28 WBC RBC Hgb Hct MCV MCH MCHC RDW Plt Count MPV Immature Gran % (Auto) Neut % (Auto) Lymph % (Auto) [place] % (Auto) Eos % (Auto) Baso % (Auto) Lymph # (Auto) [place] # (Auto) Eos # (Auto) Baso # (Auto) Abs Immat Gran (auto) Absolute Neuts (auto) Absolute Nucleated RBC Nucleated RBC % (auto) O2 Saturation 99.0 ABG pH at Pt Temp 7.56 H ABG pCO2 at Pt Temp 32 ABG pO2 at Pt Temp 198 H ABG HCO3 29 H ABG Base Excess (Actual) 7.2 VBG pH VBG pCO2 VBG pO2 VBG HCO3 VBG O2 Saturation VBG Base Excess Sodium Potassium Chloride Carbon Dioxide Anion Gap BUN Creatinine Estim Creat Clear Calc Estimated GFR Random Glucose Calcium Phosphorus Magnesium Total Bilirubin AST ALT Alkaline Phosphatase Total Protein Albumin Microbiology Microbiology Results: Microbiology 07/11/24 10:46 Bronchial Washings Direct Acid Fast Bacilli Smear - Final 07/11/24 10:46 Bronchial Washings Fungal Identification - Preliminary No growth to date. 07/11/24 10:46 Bronchial Washings Gram Stain - Final 07/11/24 10:46 Bronchial Washings Routine Culture - Final No growth after 2 days 07/04/24 08:23 Sputum - Expectorated Gram Stain - Final 07/04/24 08:23 Sputum - Expectorated Sputum Culture - Final Briseida albicans 06/22/24 15:30 Sputum - Expectorated Gram Stain - Final 06/22/24 15:30 Sputum - Expectorated Sputum Culture - Final Briseida albicans 06/14/24 11:04 Blood - Venous Blood Culture - Final No growth after 5 days. 06/14/24 11:04 Blood - Venous Blood Culture - Final No growth after 5 days. 06/14/24 16:08 Sputum - Expectorated Direct Acid Fast Bacilli Smear - Final 06/16/24 03:15 Sputum - Expectorated Direct Acid Fast Bacilli Smear - Final 06/16/24 10:30 Sputum - Expectorated Direct Acid Fast Bacilli Smear - Final Progress Note: A&P Assessment and plan (1) Hyponatremia: Status: Acute (2) Acute respiratory disease: Status: Acute (3) Acute hypoxic respiratory failure: Status: Acute (4) Abscess of lung with pneumonia: Status: Acute (5) Status post pneumonectomy: Status: Acute (6) Pneumonia: Status: Acute Plan 59-year-old gentleman, recent 30+ pack-year smoker admitted on 06/14/2024 with hypoxia and multifocal pneumonia with abscesses. Patient has been treated with empiric antibiotics with essentially negative cultures. His bronchoscopic lavage also had essentially negative cultures. However, clinically his pulmonary abscess got worse an he had an attempted left lower lobectomy on 07/17/2024, however he required completion left pneumonectomy, now being monitored in the intensive care unit. Extubated 07/18/2024. Neuro: Acute encephalopathy possibly due to metabolic encephalopathy On morphine [employer]ICE C[employer] pump that was stopped this morning, will change to PRN dilaudid Close neurological status monitoring in the ICU every hour Cardiac: Shock: Possibly secondary to On Levophed support, titrate Levophed to keep map above 65 mm Hg Respiratory: lung abscess: s/p pneumonectomy on 07/18/2024 extubated on 07/19/2024, had epsiodes of flash pulmonary edema treated with lasix currently on 8L garcia canula incentive spirometry, mobilization GI: will start on oral feeds chronic malnutrition: will increase calories in his diet has good appetite, ate 75% of breakfast this morning Renal: We will closely monitor I's and O's Avoid nephrotoxic medications Heme: Chronic anemia, closely monitor H&H, transfuse for hemoglobin less than 7 grams/deciliter Endocrine: Blood sugars under control Sliding scale insulin as needed Infectious disease: negative pancultures cotninue levofloxacin Musculoskeletal: Decubitus ulcer prevention protocol Lines: arterial line Prophylaxis: heparin held due to chest tube site SCD Quality Stroke Does the patient have a stroke diagnosis?: No VTE Prior VTE?: No VTE Risk Level:: Medical - moderate - high VTE Device Contraindication: Treatment Not Indicated VTE Drug Contraindication: N/A - Med Ordered
[2024-07-20 08:59] LABS: ABG Refer to POC result
[2024-07-20] MEDS: levoFLOXacin/D5W 750 MG/150 ML PIGGYBACK 100 MG IV (10:16)
[2024-07-20] MEDS: Norepinephrine Bitartrate/D5W 8 MG/250 ML PLAST..BAG 18.51 MG IVCONT (10:16)
[2024-07-20] MEDS: oxyCODONE HCl ER 10 MG TAB.ER.12H PO ×2 (10:17→21:42)
--- NOTE | 2024-07-20 10:37 | MHC.CM.PN ---
Pt is s/p left pneumonectomy on 07/17 for multiple areas of cavitary lesions: goals of care today: pain management and incentive spirometry: pt has been referred to [facility] for [facility] rehab. Updates sent: pt does not have an active PCP and hasn't seen a provider in years CM to follow for finalization of d/c planning needs.
--- NOTE | 2024-07-20 11:22 | MHC.CLN ---
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 RECEPTIVE TO EATING ICE CREAM AND TRYING SUPPLEMENTS TO PROMOTE WT GAIN RECOMMEND ADDING MAGIC CUP WITH MEALS AND ENSURE BID TO INCREASE KCALS ENSURE WILL PROVIDE 700KCALS, 40G PROTEIN MAGIC CUP TID WILL PROVIDE 870KCALS, 27G PROTEIN MONITOR PO INTAKE AND ENCOURAGE SUPPLEMENTS SEE ALSO FULL CLINICAL NUTRITION ASSESSMENT
[2024-07-20] MEDS: HYDROmorphone HCl 0.5 MG/0.5 ML SYRINGE IVPUSH ×3 (13:18→20:04)
[2024-07-20 13:41] LABS: Rheumatoid Factor < 13.0 IU/mL (<15.0)
[2024-07-20 14:01] LABS: Erythrocyte Sedimentation Rate 78 MM/HR (0-15)
[2024-07-20] MEDS: Albumin Human 25 % 100 ML 133.33 ML IV ×2 (14:01→14:38)
--- NOTE | 2024-07-20 18:53 | PC.NURSE ---
Assumed care at 0700- Pt. A&Ox4, vague. Morphine gtt stopped at approx [address] Gee. Pain controlled with Oxy 10mg and PRN dilaudid 0.5 mg per JUN. Pt. ambulated out of bed to recliner with PT- 1 assist. SR on tele, HR 90s-110s at rest. On exertion HR 120s-140s- MD notified, albumin given per JUN. Norepinephrine gtt titrated per JUN. Pt. remains on 8L garcia, 02 sats >90%. Pt. coughing up thick mitchell sputum, suctioning self. Pt. with increased appetite, tolerating regular diet. Rizvi remains in place draining dark yellow urine. Q2 repositioning performed. Family at bedside, updated by this RN. Plan of care ongoing.
[2024-07-20 21:33] LABS: Anion Gap 17 (12-20); Blood Urea Nitrogen 22 mg/dL (9-16); Calcium 10.6 mg/dL (8.4-10.2); Carbon Dioxide 30 mmol/L (22-29); Chloride 97 mmol/L (96-108); Creatinine Clr Calc Pharmacy 85.7; Estimated Glomerular Filt Rate > 60; Glucose Random 127 mg/dL (60-115); Potassium 4.5 mmol/L (3.3-5.1); Sodium 139 mmol/L (135-145)
[2024-07-20] MEDS: Lactated Ringers 1,000 ML 50 ML IVCONT (21:43)
[2024-07-20] MEDS: Heparin Sodium,Porcine 5,000 UNIT/ML VIAL 5000 UNIT SUBCUT (21:48)
[2024-07-21] VITALS (35 sets, daily range): BP systolic 71–164; BP diastolic 45–74; PULSE 83–131; RESP 16–28; TEMP 36–36.7; O2SAT 90–100
[2024-07-21 04:41] LABS: ABG Base Excess 12.8 mmol/L; ABG HCO3 37 mmol/L (22-26); ABG pCO2 48 mmHg (32-45); ABG pH 7.49 (7.35-7.45); ABG pO2 93 mmHg (83-108)
[2024-07-21] MEDS: Norepinephrine Bitartrate/D5W 8 MG/250 ML PLAST..BAG 8.64 MG IVCONT (04:59)
[2024-07-21 05:08] LABS: MANUAL DIFF FLAG NO
[2024-07-21 05:14] LABS: Basophils Absolute Auto 0.1 X10*3/uL (0.0-0.2); Basophils Percent Auto 0.8 % (0-2); Eosinophils Absolute Auto 0.3 X10*3/uL (0.0-0.4); Hematocrit 35.5 % (42.0-52.0); Hemoglobin 11.9 g/dl (14.0-18.0); Imm Gran Abs Auto 0.08 X10*3/uL (0.00-0.03); Imm Gran Pct Auto 0.9 % (0.0-0.4); Lymphocytes Absolute Auto 0.9 X10*3/uL (1.2-4.9); Lymphocytes Percent Auto 10.5 % (20-40); Mean Corpuscular HGB Conc 33.5 g/dl (31.0-36.0); Mean Corpuscular Hemoglobin 30.9 pg (27.0-33.0); Mean Corpuscular Volume 92.2 fL (80.0-98.0); Mean Platelet Volume 9.7 fL (9.4-12.4); Monocytes Absolute Auto 0.8 X10*3/uL (0.1-1.2); Monocytes Percent Auto 8.7 % (2-11); Neutrophils Absolute Auto 6.8 x10*3/uL (2.0-8.3); Neutrophils Percent Auto 76.1 % (45-73); Platelet Count 269 X10*3/uL (160-400); Red Blood Count 3.85 X10*6/uL (4.60-5.80); Red Cell Distribution Width 13.3 % (11.0-16.0)
[2024-07-21 05:28] LABS: Alanine Aminotransferase 29 U/L (0-40); Alkaline Phosphatase 88 U/L (39-117); Anion Gap 12 (12-20); Aspartate Amino Transferase 57 U/L (5-37); Bilirubin Total 0.8 mg/dL (0.0-1.0); Blood Urea Nitrogen 24 mg/dL (9-16); Calcium 10.4 mg/dL (8.4-10.2); Carbon Dioxide 30 mmol/L (22-29); Chloride 100 mmol/L (96-108); Creatinine Clr Calc Pharmacy 85.7; Estimated Glomerular Filt Rate > 60; Glucose Random 122 mg/dL (60-115); Magnesium 2.1 mg/dL (1.6-2.6); Phosphorus 2.6 mg/dL (2.7-4.5); Potassium 4.3 mmol/L (3.3-5.1); Sodium 138 mmol/L (135-145); Total Protein 6.7 g/dL (6.5-8.0)
[2024-07-21 07:04] LABS: ABG Refer to POC result
--- NOTE | 2024-07-21 08:46 | P.PNTS_ITS ---
Subjective Subjective Date of Service: 07/21/24 Interval history: Pain at incision site/left ribs. Was able to get OOB and sit in recliner yesterday. Tolerating solid diet. Physical Exam Vital Signs: Vital Signs: Last Vital Signs Temp 96.8 F 07/21/24 08:00 Pulse 94 07/21/24 08:00 Resp 22 H 07/21/24 08:00 BP 135/64 07/21/24 08:00 Pulse Ox 92 07/21/24 08:00 O2 Del Method Nasal Cannula 07/21/24 08:00 O2 Flow Rate 8 07/21/24 08:00 FiO2 40 07/19/24 15:56 BMI result Body Mass Index 18.3 Const: Other: somewhat disoriented, improved from yesterday General: no acute distress and alert Nutritional Appearance: thin and underweight Chest: Other: left thoracotomy incision clean, steris intact chest tube site dressing intact Resp: Effort & Inspection: able to speak in complete sentences, not labored, tachypneic, no tracheal deviation and uses accessory muscles (abdominal ) : Other: trevino in place, vira urine Skin: General skin exam: no rashes or lesions noted Neuro: General: moves all extremities Procedures Date of Service Date of Service: 07/21/24 Progress Note: A&P Assessment and plan (1) Status post pneumonectomy: Status: Acute (2) Abscess of lung with pneumonia: Status: Acute Plan POD #4 s/p left thoracotomy, initial left lower lobectomy extended to left completion pneumonectomy for pulmonary sepsis, necrotizing abscess of left lower and upper lobe. Overall continues to do fairly well post operatively, stable. BP improved, on gentle IVF, pressor requirements decreasing. Repeat CXR today. Continue restorative measures as per ICU team. Pain control. Incentive spiromet leslie 10x hr. Encouraged OOB and increasing activity as tolerated. PO intake encouraged, on regular diet with nutritional supplements. Time Spent With Patient Time: Total time managing care of this patient today ____ minutes. Quality Stroke Does the patient have a stroke diagnosis?: No VTE Prior VTE?: No VTE Risk Level:: Medical - moderate - high VTE Device Contraindication: Treatment Not Indicated VTE Drug Contraindication: N/A - Med Ordered
[2024-07-21] MEDS: HYDROmorphone HCl 0.5 MG/0.5 ML SYRINGE IVPUSH ×3 (08:52→13:52)
[2024-07-21] MEDS: Heparin Sodium,Porcine 5,000 UNIT/ML VIAL 5000 UNIT SUBCUT ×2 (08:52→20:03)
--- NOTE | 2024-07-21 08:54 | P.PNCC_ITS ---
Subjective Subjective Date of Service: 07/21/24 Interval History: Doing well Decreasing vasopressor requirement Critical Care Time (minutes): 35 Physical Exam 2 Vital Signs: Vital Signs: Last Vital Signs Temp 96.8 F 07/21/24 08:00 Pulse 94 07/21/24 08:00 Resp 22 H 07/21/24 08:00 BP 135/64 07/21/24 08:00 Pulse Ox 92 07/21/24 08:00 O2 Del Method Nasal Cannula 07/21/24 08:00 O2 Flow Rate 8 07/21/24 08:00 FiO2 40 07/19/24 15:56 BMI result Body Mass Index 18.3 General: Not in acute distress, ill appearing and tired appearing Nutritional Appearance: Poorly built under nourished Eyes: appearance normal, both eyes and all related structures; Alignment and Position: alignment normal and position normal Neck: No lymphadenopathy, no thyromegaly Resp: bilateral air entry equal, significant crackles heard in the right hand, decreased breath sound in the left lateral lung Cardio: Regular rate, regular rhythm; Heart sounds: S1 normal heart sound present and S2 normal heart sound present GI: soft, nontender, no guarding, no hepatosplenomegaly : bladder normal to inspection, bladder normal to palpation, no renal angle tenderness Skin: no rashes or lesions noted and elasticity normal Neuro: oriented to person, oriented to place, oriented to time and moves all extremities Objective Data Labs 07/21/24 04:31 07/21/24 04:31 Labs: Laboratory Results - last 24 hr 07/20/24 07/20/24 07/21/24 13:11 21:11 04:31 WBC 9.0 RBC 3.85 L Hgb 11.9 L Hct 35.5 L MCV 92.2 MCH 30.9 MCHC 33.5 RDW 13.3 Plt Count 269 MPV 9.7 Immature Gran % (Auto) 0.9 H Neut % (Auto) 76.1 H Lymph % (Auto) 10.5 L [place] % (Auto) 8.7 Eos % (Auto) 3.0 Baso % (Auto) 0.8 Lymph # (Auto) 0.9 L [place] # (Auto) 0.8 Eos # (Auto) 0.3 Baso # (Auto) 0.1 Abs Immat Gran (auto) 0.08 H Absolute Neuts (auto) 6.8 Absolute Nucleated RBC 0.000 Nucleated RBC % (auto) 0.0 ESR 78 H O2 Saturation ABG pH at Pt Temp ABG pCO2 at Pt Temp ABG pO2 at Pt Temp ABG HCO3 ABG Base Excess (Actual) Sodium 139 138 Potassium 4.5 4.3 Chloride 97 100 Carbon Dioxide 30 H 30 H Anion Gap 17 12 BUN 22 H 24 H Creatinine 0.75 0.75 Estim Creat Clear Calc 85.7 85.7 Estimated GFR > 60 > 60 Random Glucose 127 H 122 H Calcium 10.6 H 10.4 H Phosphorus 2.6 L Magnesium 2.1 Total Bilirubin 0.8 AST 57 H ALT 29 Alkaline Phosphatase 88 C-Reactive Protein 46.70 H Total Protein 6.7 Albumin 4.0 Rheumatoid Factor < 13.0 07/21/24 04:37 WBC RBC Hgb Hct MCV MCH MCHC RDW Plt Count MPV Immature Gran % (Auto) Neut % (Auto) Lymph % (Auto) [place] % (Auto) Eos % (Auto) Baso % (Auto) Lymph # (Auto) [place] # (Auto) Eos # (Auto) Baso # (Auto) Abs Immat Gran (auto) Absolute Neuts (auto) Absolute Nucleated RBC Nucleated RBC % (auto) ESR O2 Saturation 99.0 ABG pH at Pt Temp 7.49 H ABG pCO2 at Pt Temp 48 H ABG pO2 at Pt Temp 93 ABG HCO3 37 H ABG Base Excess (Actual) 12.8 Sodium Potassium Chloride Carbon Dioxide Anion Gap BUN Creatinine Estim Creat Clear Calc Estimated GFR Random Glucose Calcium Phosphorus Magnesium Total Bilirubin AST ALT Alkaline Phosphatase C-Reactive Protein Total Protein Albumin Rheumatoid Factor Microbiology Microbiology Results: Microbiology 07/11/24 10:46 Bronchial Washings Fungal Identification - Preliminary No growth after 1 week. 07/11/24 10:46 Bronchial Washings Direct Acid Fast Bacilli Smear - Final 07/11/24 10:46 Bronchial Washings Gram Stain - Final 07/11/24 10:46 Bronchial Washings Routine Culture - Final No growth after 2 days 07/04/24 08:23 Sputum - Expectorated Gram Stain - Final 07/04/24 08:23 Sputum - Expectorated Sputum Culture - Final Briseida albicans 06/22/24 15:30 Sputum - Expectorated Gram Stain - Final 06/22/24 15:30 Sputum - Expectorated Sputum Culture - Final Briseida albicans 06/14/24 11:04 Blood - Venous Blood Culture - Final No growth after 5 days. 06/14/24 11:04 Blood - Venous Blood Culture - Final No growth after 5 days. 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 Patient has been treated with empiric antibiotics with essentially negative cultures. His bronchoscopic lavage also had essentially negative cultures. However, clinically his pulmonary abscess got worse an he had an attempted left lower lobectomy on 07/17/2024, however he required completion left pneumonectomy, now being monitored in the intensive care unit. Extubated 07/18/2024. Neuro: pain: On oxycodone 10mg BID, we will increase the dose to 50 mg TID PRN dilaudid Close neurological status monitoring in the ICU every hour Cardiac: Shock: Possibly secondary to hemodynamic changes post pneumonectomy On Levophed support 0.03, titrate Levophed to keep map above 65 mm Hg Respiratory: lung abscess: s/p pneumonectomy on 07/18/2024 extubated on 07/19/2024, had episodes of flash pulmonary edema treated with lasix currently on 8L garcia canula incentive spirometry, mobilization GI: on oral feeds chronic malnutrition: will increase calories and protein in his diet Renal: We will closely monitor I's and O's Avoid nephrotoxic medications Heme: Chronic anemia, closely monitor H&H, transfuse for hemoglobin less than 7 grams/deciliter Endocrine: Blood sugars under control Sliding scale insulin as needed Infectious disease: negative pancultures continue levofloxacin Musculoskeletal: Decubitus ulcer prevention protocol Lines: arterial line Prophylaxis: heparin held due to chest tube site oozing, we will restart today SCD Quality Stroke Does the patient have a stroke diagnosis?: No VTE Prior VTE?: No VTE Risk Level:: Medical - moderate - high VTE Device Contraindication: Treatment Not Indicated VTE Drug Contraindication: N/A - Med Ordered
[2024-07-21] MEDS: levoFLOXacin/D5W 750 MG/150 ML PIGGYBACK 100 MG IV (08:58)
[2024-07-21] MEDS: 0.9 % Sodium Chloride Flush 10 ML SYRINGE 5 ML IVFLUSH ×3 (09:30→20:05)
[2024-07-21] MEDS: oxyCODONE HCl ER 10 MG TAB.ER.12H PO ×2 (15:17→20:03)
--- NOTE | 2024-07-21 17:12 | PC.NURSE ---
Assumed care @ 0700? Neuro: Alert, oriented? Respiratory: S/P pneumectomy day 4, On 8L-12L? garcia NC at rest, increase o2 demand on exertion, SpO2 90?s. Coarse breath sounds Cardiac: Sinus Rhythm at rest,?Sinus Tachy on exertion, norepinephrine gtt,? MAP goal >65. GI: LBM 4/10, +bowel sounds, poor po intake.? : Rizvi removed, due to void @ 1999 Infectious: IV abx? Skin: surgical site to left lateral thorax, DSG reinforced? Lines: peripheral IVs OOB to recliner for approx 3hrs, 2 assist with a walker?
[2024-07-21 17:37] LABS: Myeloperoxidase Antibody <1.0 AI; Proteinase 3 PR3 Antibodies <1.0 AI
[2024-07-21] MEDS: Lactated Ringers 1,000 ML 50 ML IVCONT (17:44)
[2024-07-22] VITALS (31 sets, daily range): BP systolic 73–140; BP diastolic 37–98; PULSE 66–115; RESP 12–34; TEMP 36.1–36.7; O2SAT 90–98; BMI 18.4
[2024-07-22] MEDS: HYDROmorphone HCl 0.5 MG/0.5 ML SYRINGE IVPUSH ×6 (02:48→20:18)
[2024-07-22 04:33] LABS: ABG Base Excess 12.2 mmol/L; ABG HCO3 37 mmol/L (22-26); ABG pCO2 50 mmHg (32-45); ABG pH 7.47 (7.35-7.45); ABG pO2 101 mmHg (83-108)
[2024-07-22 04:53] LABS: Basophils Absolute Auto 0.1 X10*3/uL (0.0-0.2); Basophils Percent Auto 0.8 % (0-2); Eosinophils Absolute Auto 0.5 X10*3/uL (0.0-0.4); Eosinophils Percent Auto 5.4 % (0-4); Hematocrit 36.9 % (42.0-52.0); Hemoglobin 12.1 g/dl (14.0-18.0); Imm Gran Abs Auto 0.11 X10*3/uL (0.00-0.03); Imm Gran Pct Auto 1.3 % (0.0-0.4); Lymphocytes Absolute Auto 1.1 X10*3/uL (1.2-4.9); Lymphocytes Percent Auto 13.1 % (20-40); MANUAL DIFF FLAG NO; Mean Corpuscular HGB Conc 32.8 g/dl (31.0-36.0); Mean Corpuscular Hemoglobin 30.3 pg (27.0-33.0); Mean Corpuscular Volume 92.5 fL (80.0-98.0); Mean Platelet Volume 9.3 fL (9.4-12.4); Monocytes Absolute Auto 0.8 X10*3/uL (0.1-1.2); Monocytes Percent Auto 9.6 % (2-11); Neutrophils Absolute Auto 5.8 x10*3/uL (2.0-8.3); Neutrophils Percent Auto 69.8 % (45-73); Platelet Count 319 X10*3/uL (160-400); Red Blood Count 3.99 X10*6/uL (4.60-5.80); Red Cell Distribution Width 13.6 % (11.0-16.0); White Blood Count 8.3 X10*3/uL (4.8-10.8)
[2024-07-22 05:03] LABS: ABG Refer to POC result
[2024-07-22 05:14] LABS: Alanine Aminotransferase 35 U/L (0-40); Albumin Level 3.6 g/dL (3.5-5.0); Anion Gap 15 (12-20); Aspartate Amino Transferase 60 U/L (5-37); Bilirubin Total 0.6 mg/dL (0.0-1.0); Blood Urea Nitrogen 27 mg/dL (9-16); Calcium 10.4 mg/dL (8.4-10.2); Carbon Dioxide 30 mmol/L (22-29); Chloride 100 mmol/L (96-108); Creatinine Clr Calc Pharmacy 102.4; Estimated Glomerular Filt Rate > 60; Glucose Random 125 mg/dL (60-115); Phosphorus 2.7 mg/dL (2.7-4.5); Potassium 3.9 mmol/L (3.3-5.1); Sodium 141 mmol/L (135-145); Total Protein 6.7 g/dL (6.5-8.0)
[2024-07-22 05:19] LABS: Alkaline Phosphatase 107 U/L (39-117)
--- NOTE | 2024-07-22 05:47 | PC.NURSE ---
CARE ASSUMED 7PM..AWAKE..ALERT..ORIENTED X3..MENTATING APPROPRIATELY...O2 14 L/M VIA GR CANNULA..SAO2 91-95%..PRODUCTIVE COUGH..RAISING WHITE SPUTUM AND SELFSUCTIONS ORALLY WHEN RAISED..BREATH SOUNDS DIMINISHED THROUGHT LEFT FIELD....LR50CC/HR AND LEVOPHEDPERMAR..RIGHT RADIALARTERIALLINE CORRELATES WITH LEFT NBP CUFF....PER SHIFT REPORT COUDET CATHETER REMOVED 2PM AND ...PER REPORT PATIENT UNABLETO BE STRAIGHT CATH'D IN PAST AND INFECTIOUS DISEASE INSTRUCTED TO USE COUDET CATHETER FOR STRAIGHT CATH IF UNABLE TO ACHIEVE WITH STRAIGHT CATH KIT...8PM BLADDER SCANNED 144ml..ASYMPTOMATIC...02:30 BLADDER SCANNED 421ml...patient unable to void in bed or standing at bedside with assist...unable to straight cath patient..utilized #16fr coudet catheter to straight cath and 400ml obtained 3am...REINFORCED NEED FOR FREQUENT INCENTIVE SPIROMETRY..INITIALLY ONLY ABLE TO RAISE IS TO 500ML...HS OXYCODONE GIVEN AND ABLE TO OBTAIN 1000-1250ML IN INCENTIVE SPIROMETRY...NSR/S.TACH HR 90'S-100'S..RARE PVC..RESTFULOVERNIGHT
--- NOTE | 2024-07-22 07:04 | P.PNGS_ITS ---
Subjective Subjective Date of Service: 07/22/24 <Latosha Rocha - Last Filed: 07/22/24 07:11> 07/22/24 <Zenaida Meza PA-C - Last Filed: 07/22/24 12:59> 07/22/24 <Kuldeep Gee MD - Last Filed: 07/22/24 20:40> Interval history: Patient reports pain over incision site. Tried to increase diet yesterday and ambulate to chair. Catheter was removed, unable to urinate on his own, was straight cathed last night. <Latosha Garzono - Last Filed: 07/22/24 07:11> Physical Exam 2 Vital Signs: Vital Signs: Last Vital Signs Temp 98.0 F 07/22/24 04:00 Pulse 90 07/22/24 06:00 Resp 15 07/22/24 06:00 BP 119/65 07/22/24 06:00 Pulse Ox 93 07/22/24 06:00 O2 Del Method Large Bore Nasal Cannula 07/22/24 06:00 O2 Flow Rate 12 07/22/24 06:00 FiO2 40 07/19/24 15:56 BMI result Body Mass Index 18.4 <Latosha Garzono - Last Filed: 07/22/24 07:11> Const: Other: More responsive, somewhat disoriented <Latosha Garzono - Last Filed: 07/22/24 07:11> Orientation/consciousness: patient oriented x3 <Zenaida Meza PA-C - Last Filed: 07/22/24 12:59> Chest: Other: Dressing in place over incision <Latosha Mariscal Last Filed: 07/22/24 07:11> Other: Dressing in place over incision, dry, clean <Zenaida Meza PA-C - Last Filed: 07/22/24 12:59> Resp: Other: some increased work of breathing <YEN Marks Last Filed: 07/22/24 12:59> Effort & Inspection: able to speak in complete sentences, Actively coughing, tachypneic and uses accessory muscles (abdominal) <YEN Marks Last Filed: 07/22/24 12:59> Skin: General skin exam: no rashes or lesions noted <Zenaida Meza PA-C - Last Filed: 07/22/24 12:59> Neuro: General: patient oriented x3 and moves all extremities <Zenaida Meza PA-C - Last Filed: 07/22/24 12:59> Objective Data Active Medications Albuterol/Ipratropium (Albuterol/Iprat 2.5/0.5mg 3 Ml Ampul.Neb) 3 ml INHALE Q4H PRN PRN Reason: Wheezing Last Admin: 07/16/24 18:37 Dose: 3 ml Documented By: SANCHEZ Heparin Sodium (Porcine) (Heparin Sodium,Porcine 5,000 Unit/Ml Vial) 5,000 unit SUBCUT Q12H CRISTINE Last Admin: 07/21/24 20:03 Dose: 5,000 unit Documented By: DEMIAN Hydromorphone HCl (Hydromorphone Hcl 0.5 Mg/0.5 Ml Syringe) 0.5 mg IVPUSH Q2H PRN; Protocol PRN Reason: Pain, Moderate(Pain Scale 4-6) Last Admin: 07/22/24 02:48 Dose: 0.5 mg Documented By: DEMIAN Levofloxacin (Levaquin) 750 mg in 150 mls @ 100 mls/hr IV Q24H CRISTINE Last Infusion: 07/21/24 11:45 Dose: Infused Documented By: BHAVIK Norepinephrine Bitartrate (Levophed) 8 mg in 250 mls @ 0 mls/hr IVCONT .Q0M CRISTINE; Protocol Last Titration: 07/22/24 00:40 Dose: 0.05 mcg/kg/min, 6.17 mls/hr Documented By: DEMIAN Morphine Sulfate (Morphine Sulfate/Ns) 100 mg in 100 mls @ 0 mls/hr IVCONT .Q0M CRISTINE; Protocol Last Infusion: 07/20/24 13:25 Dose: Infused Documented By: ONDINA Lactated Ringer's (Lr) 1,000 mls @ 50 mls/hr IVCONT .Q20H CRISTINE Last Admin: 07/21/24 17:44 Dose: 50 mls/hr Documented By: BHAVIK Naloxone HCl (Naloxone Hcl 0.4 Mg/Ml Vial) 0.2 mg IVPUSH Q2M PRN PRN Reason: Excessive sedation or RR < 8 Ondansetron HCl (Ondansetron Hcl 4 Mg/2 Ml Vial) 4 mg IVPUSH Q8H PRN PRN Reason: Nausea and Vomiting Last Admin: 07/18/24 21:28 Dose: 4 mg Documented By: KIARRA Oxycodone HCl (Oxycodone Hcl Er 10 Mg Tab.Er.12h) 10 mg PO TID [facility] Last Admin: 07/21/24 20:03 Dose: 10 mg Documented By: DEMIAN Sodium Chloride (0.9 % Sodium Chloride Flush 10 Ml Syringe) 5 ml IVFLUSH QSHIFT [facility] Last Admin: 07/21/24 20:05 Dose: 5 ml Documented By: DEMIAN <Latosha Aj - Last Filed: 07/22/24 07:11> Labs CBC & Chem 7: 07/22/24 04:30 07/22/24 04:30 <Latosha Aj - Last Filed: 07/22/24 07:11> Labs: Laboratory Results - last 24 hr 07/20/24 07/22/24 13:11 04:30 MCV 92.5 MCH 30.3 MCHC 32.8 RDW 13.6 Plt Count 319 MPV 9.3 L Immature Gran % (Auto) 1.3 H Neut % (Auto) 69.8 Lymph % (Auto) 13.1 L [place] % (Auto) 9.6 Eos % (Auto) 5.4 H Baso % (Auto) 0.8 Lymph # (Auto) 1.1 L [place] # (Auto) 0.8 Eos # (Auto) 0.5 H Baso # (Auto) 0.1 Abs Immat Gran (auto) 0.11 H Absolute Neuts (auto) 5.8 Absolute Nucleated RBC 0.000 Nucleated RBC % (auto) 0.0 O2 Saturation 100.0 ABG pH at Pt Temp 7.47 H ABG pCO2 at Pt Temp 50 H ABG pO2 at Pt Temp 101 ABG HCO3 37 H ABG Base Excess (Actual) 12.2 Anion Gap 15 Estim Creat Clear Calc 102.4 Estimated GFR > 60 Random Glucose 125 H Calcium 10.4 H Phosphorus 2.7 Magnesium 2.0 Total Bilirubin 0.6 AST 60 H ALT 35 Alkaline Phosphatase 107 Total Protein 6.7 Albumin 3.6 Proteinase 3 (PR3) Ab <1.0 Myeloperoxidase Ab <1.0 <Latosha Rocha - Last Filed: 07/22/24 07:11> Procedures Date of Service Date of Service: 07/22/24 <Latosha Rocha - Last Filed: 07/22/24 07:11> 07/22/24 <Zenaida Meza PA-C - Last Filed: 07/22/24 12:59> 07/22/24 <Kuldeep Gee MD - Last Filed: 07/22/24 20:40> Progress Note: A&P Assessment and plan (1) Status post pneumonectomy: Status: Acute <Latosha Rocha - Last Filed: 07/22/24 07:11> Assessment and Plan: POD #5 s/p left thoracotomy, initial left lower lobectomy extended to left completion pneumonectomy for pulmonary sepsis, necrotizing abscess of left lower and upper lobe. Overall continues to do fairly well post operatively, stable. Continues to be on pressors, and 12L nasal cannula. Patient was able to get up to 1200 on spirometry this morning, encouraged to do this 10x per hour. Pain control, continue ambulation to chair and increased PO diet with nutritional supplements. <Latosha Aj - Last Filed: 07/22/24 07:11> POD #5 s/p left thoracotomy, initial left lower lobectomy extended to left completion pneumonectomy for pulmonary sepsis, necrotizing abscess of left lower and upper lobe. Overall continues to do fairly well post operatively, stable. Continues to be on pressors, and 12L nasal cannula. Patient was able to get up to 1200 on spirometry this morning, encouraged to do this 10x per hour. Pain control, continue ambulation to chair and increased PO diet with nutritional supplements. Agree with above. Patient appears to have some increased work of breathing, tachypneic this morning and increasing supplemental oxygen requirements. Continues with cough and secretions. CXR obtained- ?pulmonary edema. Consider diuresis and dec or DC IVF. Pain control to allow deep breathing/OOB. Chest physiotherapy, expectorants, increase activity, incentive spirometry. <Zenaida Meza PA-C - Last Filed: 07/22/24 12:59> POD #5 s/p left thoracotomy, initial left lower lobectomy extended to left completion pneumonectomy for pulmonary sepsis, necrotizing abscess of left lower and upper lobe. Overall continues to do fairly well post operatively, stable. Continues to be on pressors, and 12L nasal cannula. Patient was able to get up to 1200 on spirometry this morning, encouraged to do this 10x per hour. Pain control, continue ambulation to chair and increased PO diet with nutritional supplements. Agree with above. Patient appears to have some increased work of breathing, tachypneic this morning and increasing supplemental oxygen requirements. Continues with cough and secretions. CXR obtained- ?pulmonary edema. Consider diuresis and dec or DC IVF. Pain control to allow deep breathing/OOB. Chest physiotherapy, expectorants, increase activity, incentive spirometry. As noted.D/W ICU MD <Kuldeep Gee MD - Last Filed: 07/22/24 20:40> Time Spent With Patient Time: Total time managing care of this patient today ____ minutes. <Latosha Aj - Last Filed: 07/22/24 07:11> Quality Stroke Does the patient have a stroke diagnosis?: No <Latosha Aj - Last Filed: 07/22/24 07:11> VTE Prior VTE?: No <Latosha Aj - Last Filed: 07/22/24 07:11> VTE Risk Level:: Medical - moderate - high <Latosha Aj - Last Filed: 07/22/24 07:11> VTE Device Contraindication: Treatment Not Indicated <Latosha Aj - Last Filed: 07/22/24 07:11> VTE Drug Contraindication: N/A - Med Ordered <Latosha Aj - Last Filed: 07/22/24 07:11>
[2024-07-22] MEDS: levoFLOXacin/D5W 750 MG/150 ML PIGGYBACK 100 MG IV (07:49)
[2024-07-22] MEDS: 0.9 % Sodium Chloride Flush 10 ML SYRINGE 5 ML IVFLUSH ×3 (07:49→23:46)
--- NOTE | 2024-07-22 09:01 | P.PNCC_ITS ---
Subjective Subjective Date of Service: 07/22/24 Interval History: Slight increase in oxygen requirement overnight currently at 12 L/min through [place] cannula on levophed for vasopressor support Critical Care Time (minutes): 35 Physical Exam 2 Vital Signs: Vital Signs: Last Vital Signs Temp 97.2 F 07/22/24 08:00 Pulse 98 07/22/24 08:00 Resp 27 H 07/22/24 08:00 BP 94/78 07/22/24 08:00 Pulse Ox 90 L 07/22/24 08:00 O2 Del Method Large Bore Nasal Cannula 07/22/24 08:00 O2 Flow Rate 12 07/22/24 08:00 FiO2 40 07/19/24 15:56 BMI result Body Mass Index 18.4 General: male emaciated, chronically ill and tired appearing sitting in the bed Nutritional Appearance: Very poorly nourished and under weight Eyes: appearance normal, both eyes and all related structures; Alignment and Position: alignment normal and position normal Neck: No lymphadenopathy, no thyromegaly Resp: bilateral air entry equal, significant crackles heard in the right lung, decreased breath sounds in the left lung Cardio: Regular rate, regular rhythm; Heart sounds: S1 normal heart sound present and S2 normal heart sound present GI: soft, nontender, no guarding, no hepatosplenomegaly : bladder normal to inspection, bladder normal to palpation, no renal angle tenderness Skin: no rashes or lesions noted and elasticity normal Neuro: oriented to person, oriented to place, oriented to time and moves all extremities Objective Data Labs 07/22/24 04:30 07/22/24 04:30 Labs: Laboratory Results - last 24 hr 07/20/24 07/22/24 13:11 04:30 WBC 8.3 RBC 3.99 L Hgb 12.1 L Hct 36.9 L MCV 92.5 MCH 30.3 MCHC 32.8 RDW 13.6 Plt Count 319 MPV 9.3 L Immature Gran % (Auto) 1.3 H Neut % (Auto) 69.8 Lymph % (Auto) 13.1 L [place] % (Auto) 9.6 Eos % (Auto) 5.4 H Baso % (Auto) 0.8 Lymph # (Auto) 1.1 L [place] # (Auto) 0.8 Eos # (Auto) 0.5 H Baso # (Auto) 0.1 Abs Immat Gran (auto) 0.11 H Absolute Neuts (auto) 5.8 Absolute Nucleated RBC 0.000 Nucleated RBC % (auto) 0.0 O2 Saturation 100.0 ABG pH at Pt Temp 7.47 H ABG pCO2 at Pt Temp 50 H ABG pO2 at Pt Temp 101 ABG HCO3 37 H ABG Base Excess (Actual) 12.2 Sodium 141 Potassium 3.9 Chloride 100 Carbon Dioxide 30 H Anion Gap 15 BUN 27 H Creatinine 0.63 Estim Creat Clear Calc 102.4 Estimated GFR > 60 Random Glucose 125 H Calcium 10.4 H Phosphorus 2.7 Magnesium 2.0 Total Bilirubin 0.6 AST 60 H ALT 35 Alkaline Phosphatase 107 Total Protein 6.7 Albumin 3.6 Proteinase 3 (PR3) Ab <1.0 Myeloperoxidase Ab <1.0 Microbiology Microbiology Results: Microbiology 07/11/24 10:46 Bronchial Washings Fungal Identification - Preliminary No growth after 1 week. 07/11/24 10:46 Bronchial Washings Direct Acid Fast Bacilli Smear - Final 07/11/24 10:46 Bronchial Washings Gram Stain - Final 07/11/24 10:46 Bronchial Washings Routine Culture - Final No growth after 2 days 07/04/24 08:23 Sputum - Expectorated Gram Stain - Final 07/04/24 08:23 Sputum - Expectorated Sputum Culture - Final Briseida albicans 06/22/24 15:30 Sputum - Expectorated Gram Stain - Final 06/22/24 15:30 Sputum - Expectorated Sputum Culture - Final Briseida albicans 06/14/24 11:04 Blood - Venous Blood Culture - Final No growth after 5 days. 06/14/24 11:04 Blood - Venous Blood Culture - Final No growth after 5 days. 06/14/24 16:08 Sputum - Expectorated Direct Acid Fast Bacilli Smear - Final 06/16/24 03:15 Sputum - Expectorated Direct Acid Fast Bacilli Smear - Final 06/16/24 10:30 Sputum - Expectorated Direct Acid Fast Bacilli Smear - Final Progress Note: A&P Assessment and plan (1) 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 (2) Acute respiratory disease: Status: Acute (3) Status post pneumonectomy: Status: Acute (4) Cough: Status: Acute (5) Abscess of lung with pneumonia: Status: Acute Plan 59-year-old gentleman, recent 30+ pack-year smoker admitted on 06/14/2024 with hypoxia and multifocal pneumonia with abscesses. Patient has been treated with empiric antibiotics with essentially negative cultures. His bronchoscopic lavage also had essentially negative cultures. However, clinically his pulmonary abscess got worse an he had an attempted left lower lobectomy on 07/17/2024, however he required completion left pneumonectomy, now being monitored in the intensive care unit. Extubated 07/18/2024. Neuro: pain: On oxycodone 10mg TID, PRN dilaudid Close neurological status monitoring in the ICU every hour Cardiac: Shock: Possibly secondary to hemodynamic changes post pneumonectomy On Levophed support 0.05, titrate Levophed to keep map above 65 mm Hg Respiratory: lung abscess: s/p pneumonectomy on 07/18/2024 extubated on 07/19/2024, had episodes of flash pulmonary edema treated with lasix currently on 12L nieto canula incentive spirometry, mobilization, chest percussion therapy GI: on oral feeds chronic malnutrition: increased calories and protein in his diet Renal: We will closely monitor I's and O's Avoid nephrotoxic medications Heme: Chronic anemia, closely monitor H&H, transfuse for hemoglobin less than 7 grams/deciliter Endocrine: Blood sugars under control Sliding scale insulin as needed Infectious disease: negative pancultures continue levofloxacin Musculoskeletal: Decubitus ulcer prevention protocol Lines: arterial line Prophylaxis: heparin Quality Stroke Does the patient have a stroke diagnosis?: No VTE Prior VTE?: No VTE Risk Level:: Medical - moderate - high VTE Device Contraindication: Treatment Not Indicated VTE Drug Contraindication: N/A - Med Ordered
[2024-07-22] MEDS: oxyCODONE HCl ER 10 MG TAB.ER.12H PO ×3 (09:43→20:17)
[2024-07-22] MEDS: Heparin Sodium,Porcine 5,000 UNIT/ML VIAL 5000 UNIT SUBCUT ×2 (09:44→20:19)
--- NOTE | 2024-07-22 10:31 | MHC.CM.PN ---
Pt post op from left pneumonectomy: on 12 L O2: OOB to chair: pain management ongoing: Clinical updates sent to [facility] for eventual transfer. CM to follow
--- NOTE | 2024-07-22 11:02 | MHC.CLN ---
F/U PT IS MODERATELY MALNOURISHED SEE FULL CLINICAL NUTRITION ASSESSMENT DATED 07/20/24 REGULAR DIET NSG REPORTED PT ACCEPTING 100% MAGIC CUP AND STARTED DRINKING ENSURE PT NOT ACCEPTING SOLID MEALS AT THIS TIME ENSURE PROVIDES 700KCALS, 40G PROTEIN MAGIC CUP TID PROVIDES 870KCALS, 27G PROTEIN; 50% EST KCAL NEEDS MONITOR PO INTAKE AND ENCOURAGE SUPPLEMENTS
--- NOTE | 2024-07-22 11:45 | P.CDIM_ITS ---
PROVIDER RESPONSE TEXT: To clarify, the appropriate diagnosis supported by the clinical indicators: Severe QUERY TEXT: PHYSICIAN'S DOCUMENTATION REQUEST Date of Query: 07/22/2024 11:29 AM EDT Patient Name: RADHA WHITMORE Admit Date: 06/14/2024 Dear Darnell Perez MD, A review of the medical record indicates additional documentation may be needed. Please review below and update the documentation accordingly. Documentation includes the diagnosis of malnutrition. Clinical nutrition assessment notes patient is moderately malnourished with BMI 18.4 Mild depletion of subcutaneous fat and muscle mass.. Poor PO intake. If possible, please provide additional specificity regarding the severity of the malnutrition using t he above information: Mild Moderate Severe Other (explain) Clinically unable to determine (explain) Thank you, Monse Blackman, CCS, CDIS Use of terms such as suspected, likely, concern for, or probable (associated with a specific diagnosi s that is being evaluated, monitored, or treated as if it exists) are acceptable and can be coded in the inpatient se tting, when documented at the time of discharge. Please use your independent medical judgment in providing your response. THIS QUERY IS PART OF THE PERMANENT MEDICAL RECORD
[2024-07-22] MEDS: Furosemide 40 MG/4 ML VIAL IVPUSH (12:15)
[2024-07-22] MEDS: Ketorolac Tromethamine 30 MG/ML VIAL IM (12:17)
--- NOTE | 2024-07-22 13:37 | HO.SKINPHOTO ---
Location: left lateral back
[2024-07-22] MEDS: Norepinephrine Bitartrate/D5W 8 MG/250 ML PLAST..BAG 14.81 MG IVCONT (18:20)
--- NOTE | 2024-07-22 19:05 | PC.NURSE ---
Assumed care @ 0700? Neuro: Alert & oriented? Respiratory: S/P pneumectomy day 5, On 4-6L? radha NC at rest, increase O2 demand on exertion, SpO2 90?s. Expiratory wheezing.?? Utilizing incentive spirometry and acapella device.? Cardiac: Sinus Rhythm at rest,? Sinus Tachy on exertion, norepinephrine gtt,? MAP goal >65. GI: LBM 4/10, +bowel sounds, poor po intake.? : Bladder scan approx @ 1600 for 437cc. Followed by? Straight cath. Infectious: IV abx? Skin: surgical site to left lateral thorax, secondary? DSG change? Lines: peripheral IVs OOB to recliner for approx 6hrs, 2 assist with a walker? Pain managed with schedule oxycodone, prn hydromorphone, and ketorolac per JUN?
[2024-07-23] VITALS (36 sets, daily range): BP systolic 88–137; BP diastolic 50–84; PULSE 60–145; RESP 12–30; TEMP 36.2–36.8; O2SAT 90–100; BMI 18.5
--- NOTE | 2024-07-23 02:39 | PC.NURSE ---
CARE ASSUMED 7PM...ALERT..ORIENTED X3..MENTATING APPROPRIATELY....BACK TO BED AT SHIFT CHANGE..MCDANIEL INITIALLY..O2 TITRATED FROM 4 L/M TO 6 L/M WITH EFFECT..C/O SURGICAL PAIN WORSE WITH INSPIRATION AND COUGH,,SCHEDULED OXYCONTIN 10 MG PO @20:19 AND PRN DILAUDID 0.5 MG IV GIVEN @ 20:18....REPORTED RELIEF OF PAIN..RESTFUL OVERNIGHT...O2 WEANED TO 4 L/M WITH SAO2 98% AT REST..SURGICAL SITE DRY/INTACT TO LEFT CHEST....PER REPORT PATIENT PREVIOUSLY STRAIGHT CATH'D FOR 400ML VIA COUDE TIP CATHETER PER THIS WRITERS NOTE FROM 07/22/24 AM.....BLADDER SCANNED 00:30-01:00 FOR 140ML...DENIED URGE TO VOID...PER REPORT AND MAR PATIENT PREVIOUSLY RECEIVED LASIX 40MG IV 07/22 12:15 AND LR FLUIDS D/C'D AT SAME TIME...NSR ISOLATED PVC....LEVOPHED DRIP WEANED FROM 0.12 MCG/KG/MIN TO 0.08 MCG/KG/MIN...RIGHT RADIAL ARTERIAL LINE CORRELATES WITH LEFT UPPER ARM NBP CUFF
[2024-07-23 05:57] LABS: Basophils Absolute Auto 0.1 X10*3/uL (0.0-0.2); Basophils Percent Auto 0.8 % (0-2); Eosinophils Absolute Auto 0.6 X10*3/uL (0.0-0.4); Eosinophils Percent Auto 7.6 % (0-4); Hemoglobin 11.8 g/dl (14.0-18.0); Imm Gran Abs Auto 0.09 X10*3/uL (0.00-0.03); Imm Gran Pct Auto 1.1 % (0.0-0.4); Lymphocytes Percent Auto 12.3 % (20-40); MANUAL DIFF FLAG NO; Mean Corpuscular HGB Conc 31.9 g/dl (31.0-36.0); Mean Corpuscular Hemoglobin 30.2 pg (27.0-33.0); Mean Corpuscular Volume 94.6 fL (80.0-98.0); Mean Platelet Volume 9.7 fL (9.4-12.4); Monocytes Absolute Auto 0.8 X10*3/uL (0.1-1.2); Monocytes Percent Auto 9.7 % (2-11); Neutrophils Absolute Auto 5.7 x10*3/uL (2.0-8.3); Neutrophils Percent Auto 68.5 % (45-73); Platelet Count 353 X10*3/uL (160-400); Red Blood Count 3.91 X10*6/uL (4.60-5.80); Red Cell Distribution Width 13.8 % (11.0-16.0); White Blood Count 8.3 X10*3/uL (4.8-10.8)
[2024-07-23 06:00] LABS: Alanine Aminotransferase 41 U/L (0-40); Albumin Level 3.3 g/dL (3.5-5.0); Anion Gap 15 (12-20); Aspartate Amino Transferase 56 U/L (5-37); Bilirubin Total 0.3 mg/dL (0.0-1.0); Blood Urea Nitrogen 37 mg/dL (9-16); Calcium 10.2 mg/dL (8.4-10.2); Carbon Dioxide 32 mmol/L (22-29); Chloride 101 mmol/L (96-108); Creatinine Clr Calc Pharmacy 100.1; Estimated Glomerular Filt Rate > 60; Glucose Random 110 mg/dL (60-115); Phosphorus 4.5 mg/dL (2.7-4.5); Sodium 144 mmol/L (135-145); Total Protein 6.2 g/dL (6.5-8.0)
[2024-07-23 06:12] LABS: Alkaline Phosphatase 140 U/L (39-117)
[2024-07-23] MEDS: HYDROmorphone HCl 0.5 MG/0.5 ML SYRINGE IVPUSH ×4 (06:20→18:22)
[2024-07-23] MEDS: oxyCODONE HCl ER 10 MG TAB.ER.12H PO ×3 (08:11→21:00)
[2024-07-23] MEDS: Heparin Sodium,Porcine 5,000 UNIT/ML VIAL 5000 UNIT SUBCUT ×2 (08:11→21:01)
[2024-07-23] MEDS: levoFLOXacin/D5W 750 MG/150 ML PIGGYBACK 150 MG IV (08:12)
[2024-07-23] MEDS: 0.9 % Sodium Chloride Flush 10 ML SYRINGE 5 ML IVFLUSH ×3 (08:13→21:02)
--- NOTE | 2024-07-23 09:03 | PM.CCPN ---
Subjective Subjective Date of Service: 07/23/24 Interval History: no new events overnight oxygen requirement decreased down to 4-6L/min Critical Care Time (minutes): 35 Physical Exam Vital Signs: Vital Signs: Last Vital Signs Temp 98.2 F 07/23/24 08:00 Pulse 70 07/23/24 08:30 Resp 21 H 07/23/24 08:00 BP 107/58 L 07/23/24 08:30 Pulse Ox 94 07/23/24 08:00 O2 Del Method Nasal Cannula 07/23/24 08:00 O2 Flow Rate 4 07/23/24 08:00 FiO2 40 07/19/24 15:56 BMI result Body Mass Index 18.5 General: male emaciated, looking chronically ill, sitting in the side chair Nutritional Appearance: poorly nourished and underweight Eyes: appearance normal, both eyes and all related structures; Alignment and Position: alignment normal and position normal Neck: No lymphadenopathy, no thyromegaly Resp: bilateral air entry equal, crackles heard in the right lung Cardio: Regular rate, regular rhythm; Heart sounds: S1 normal heart sound present and S2 normal heart sound present GI: soft, nontender, no guarding, no hepatosplenomegaly : bladder normal to inspection, bladder normal to palpation, no renal angle tenderness Skin: no rashes or lesions noted and elasticity normal Neuro: oriented to person, oriented to place, oriented to time and moves all extremities Objective Data Labs 07/23/24 04:29 07/23/24 04:45 Labs: Laboratory Results - last 24 hr 07/23/24 07/23/24 04:29 04:45 WBC 8.3 RBC 3.91 L Hgb 11.8 L Hct 37.0 L MCV 94.6 MCH 30.2 MCHC 31.9 RDW 13.8 Plt Count 353 MPV 9.7 Immature Gran % (Auto) 1.1 H Neut % (Auto) 68.5 Lymph % (Auto) 12.3 L [place] % (Auto) 9.7 Eos % (Auto) 7.6 H Baso % (Auto) 0.8 Lymph # (Auto) 1.0 L [place] # (Auto) 0.8 Eos # (Auto) 0.6 H Baso # (Auto) 0.1 Abs Immat Gran (auto) 0.09 H Absolute Neuts (auto) 5.7 Absolute Nucleated RBC 0.000 Nucleated RBC % (auto) 0.0 Sodium 144 Potassium 4.0 Chloride 101 Carbon Dioxide 32 H Anion Gap 15 BUN 37 H Creatinine 0.65 Estim Creat Clear Calc 100.1 Estimated GFR > 60 Random Glucose 110 Calcium 10.2 Phosphorus 4.5 Magnesium 2.0 Total Bilirubin 0.3 AST 56 H ALT 41 H Alkaline Phosphatase 140 H Total Protein 6.2 L Albumin 3.3 L Microbiology Microbiology Results: Microbiology 07/11/24 10:46 Bronchial Washings Fungal Identification - Preliminary No growth after 1 week. 07/11/24 10:46 Bronchial Washings Direct Acid Fast Bacilli Smear - Final 07/11/24 10:46 Bronchial Washings Gram Stain - Final 07/11/24 10:46 Bronchial Washings Routine Culture - Final No growth after 2 days 07/04/24 08:23 Sputum - Expectorated Gram Stain - Final 07/04/24 08:23 Sputum - Expectorated Sputum Culture - Final Briseida albicans 06/22/24 15:30 Sputum - Expectorated Gram Stain - Final 06/22/24 15:30 Sputum - Expectorated Sputum Culture - Final Briseida albicans 06/14/24 11:04 Blood - Venous Blood Culture - Final No growth after 5 days. 06/14/24 11:04 Blood - Venous Blood Culture - Final No growth after 5 days. 06/14/24 16:08 Sputum - Expectorated Direct Acid Fast Bacilli Smear - Final 06/16/24 03:15 Sputum - Expectorated Direct Acid Fast Bacilli Smear - Final 06/16/24 10:30 Sputum - Expectorated Direct Acid Fast Bacilli Smear - Final Progress Note: A&P Assessment and plan (1) Hyponatremia: Status: Acute (2) 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 (3) Acute respiratory disease: Status: Acute (4) Pneumonia: Status: Acute (5) Acute hypoxic respiratory failure: Status: Acute (6) Abscess of lung with pneumonia: Status: Acute Plan 59-year-old gentleman, recent 30+ pack-year smoker admitted on 06/14/2024 with hypoxia and multifocal pneumonia with abscesses. Patient has been treated with empiric antibiotics with essentially negative cultures. His bronchoscopic lavage also had essentially negative cultures. However, clinically his pulmonary abscess got worse an he had an attempted left lower lobectomy on 07/17/2024, however he required completion left pneumonectomy, now being monitored in the intensive care unit. Extubated 07/18/2024. Neuro: pain: On oxycodone 10mg TID, PRN dilaudid Cardiac: Shock: Possibly secondary to hemodynamic changes post pneumonectomy On Levophed support 0.05, titrate Levophed to keep map above 65 mm Hg continue midodrine 15mg q6h Respiratory: lung abscess: s/p pneumonectomy on 07/18/2024 extubated on 07/19/2024, had episodes of flash pulmonary edema treated with lasix decrease in oxygen requirement down to 4-6L/min incentive spirometry, mobilization, chest percussion therapy GI: on oral feeds chronic malnutrition: increased calories and protein in his diet Renal: We will closely monitor I's and O's Avoid nephrotoxic medications Heme: Chronic anemia, closely monitor H&H, transfuse for hemoglobin less than 7 grams/deciliter Endocrine: Blood sugars under control Sliding scale insulin as needed Infectious disease: negative pancultures continue levofloxacin Musculoskeletal: Decubitus ulcer prevention protocol Lines: arterial line- will take out Prophylaxis: heparin Quality Stroke Does the patient have a stroke diagnosis?: No VTE Prior VTE?: No VTE Risk Level:: Medical - moderate - high VTE Device Contraindication: Treatment Not Indicated VTE Drug Contraindication: N/A - Med Ordered
--- NOTE | 2024-07-23 09:33 | P.PNGS_ITS ---
Subjective Subjective Date of Service: 07/23/24 <Latosha Garzono - Last Filed: 07/23/24 09:47> 07/23/24 <Efe Pinto PA-C - Last Filed: 07/23/24 10:09> 07/23/24 <Kuldeep Gee MD - Last Filed: 07/23/24 10:09> Interval history: Patient had just received hydromorphone before arrival, but was still responsive. Reports he is in pain near incision site, ambulated to the chair yesterday. He also stated his buttocks were in pain. No bowel movement, he is being straight cathed. <Latosha CooleyAj - Last Filed: 07/23/24 09:47> Patient had just received hydromorphone before arrival, but was still responsive. Reports he is in pain near incision site, ambulated to the chair yesterday. He also stated his buttocks were in pain. No bowel movement, he is being straight cathed. Patient has increased diet, tolerating oral intake well. <Efe Pinto PA-C - Last Filed: 07/23/24 10:09> Physical Exam 2 Vital Signs: Vital Signs: Last Vital Signs Temp 98.2 F 07/23/24 08:00 Pulse 88 07/23/24 09:00 Resp 18 07/23/24 09:00 BP 108/63 07/23/24 09:00 Pulse Ox 96 07/23/24 09:00 O2 Del Method Nasal Cannula 07/23/24 09:00 O2 Flow Rate 4 07/23/24 09:00 FiO2 40 07/19/24 15:56 BMI result Body Mass Index 18.5 <Latosha Aj - Last Filed: 07/23/24 09:47> Const: General: awake <Latosha Aj - Last Filed: 07/23/24 09:47> Orientation/consciousness: patient oriented x3 <Latosha Villaltacomo - Last Filed: 07/23/24 09:47> Chest: Other: Dressing over incision site, no discharge noted <Latosha Aj - Last Filed: 07/23/24 09:47> Other: Dressing over incision site, no discharge noted. Incision clean dry and intact, steri strips intact <Efe Pinto PA-C - Last Filed: 07/23/24 10:09> Resp: Other: self suctioning <Latosha Mariscal Last Filed: 07/23/24 09:47> Other: self suctioning. Nasal cannula on 6L <Efe Pinto PA-C - Last Filed: 07/23/24 10:09> Effort & Inspection: Actively coughing <Latosha Mariscal Last Filed: 07/23/24 09:47> Effort & Inspection: able to speak in complete sentences <Efe Pinto PA-C - Last Filed: 07/23/24 10:09> Skin: Other: incision site clean dry and intact <Efe Pinto PA-C - Last Filed: 07/23/24 10:09> Neuro: General: patient oriented x3 <Latosha Mariscal Last Filed: 07/23/24 09:47> Objective Data Active Medications Albuterol/Ipratropium (Albuterol/Iprat 2.5/0.5mg 3 Ml Ampul.Neb) 3 ml INHALE Q4H PRN PRN Reason: Wheezing Last Admin: 07/16/24 18:37 Dose: 3 ml Documented By: SANCHEZ Heparin Sodium (Porcine) (Heparin Sodium,Porcine 5,000 Unit/Ml Vial) 5,000 unit SUBCUT Q12H [facility] Last Admin: 07/23/24 08:11 Dose: 5,000 unit Documented By: ONDINA Hydromorphone HCl (Hydromorphone Hcl 0.5 Mg/0.5 Ml Syringe) 0.5 mg IVPUSH Q2H PRN; Protocol PRN Reason: Pain, Moderate(Pain Scale 4-6) Last Admin: 07/23/24 06:20 Dose: 0.5 mg Documented By: DEMIAN Levofloxacin (Levaquin) 750 mg in 150 mls @ 100 mls/hr IV Q24H [facility] Last Infusion: 07/23/24 09:13 Dose: Infused Documented By: ONDINA Norepinephrine Bitartrate (Levophed) 8 mg in 250 mls @ 0 mls/hr IVCONT .Q0M [facility]; Protocol Last Titration: 07/23/24 08:30 Dose: 0.07 mcg/kg/min, 8.64 mls/hr Documented By: ONDINA Midodrine (Midodrine Hcl 5 Mg Tablet) 15 mg PO Q6H [facility] Ondansetron HCl (Ondansetron Hcl 4 Mg/2 Ml Vial) 4 mg IVPUSH Q8H PRN PRN Reason: Nausea and Vomiting Last Admin: 07/18/24 21:28 Dose: 4 mg Documented By: KIARRA Oxycodone HCl (Oxycodone Hcl Er 10 Mg Tab.Er.12h) 10 mg PO TID [facility] Last Admin: 07/23/24 08:11 Dose: 10 mg Documented By: ONDINA Sodium Chloride (0.9 % Sodium Chloride Flush 10 Ml Syringe) 5 ml IVFLUSH QSHIFT [facility] Last Admin: 07/23/24 08:13 Dose: 5 ml Documented By: ONDINA <Latosha Aj - Last Filed: 07/23/24 09:47> Labs CBC & Chem 7: 07/23/24 04:29 07/23/24 04:45 <Latosha Aj - Last Filed: 07/23/24 09:47> Labs: Laboratory Results - last 24 hr 07/23/24 07/23/24 04:29 04:45 MCV 94.6 MCH 30.2 MCHC 31.9 RDW 13.8 Plt Count 353 MPV 9.7 Immature Gran % (Auto) 1.1 H Neut % (Auto) 68.5 Lymph % (Auto) 12.3 L [place] % (Auto) 9.7 Eos % (Auto) 7.6 H Baso % (Auto) 0.8 Lymph # (Auto) 1.0 L [place] # (Auto) 0.8 Eos # (Auto) 0.6 H Baso # (Auto) 0.1 Abs Immat Gran (auto) 0.09 H Absolute Neuts (auto) 5.7 Absolute Nucleated RBC 0.000 Nucleated RBC % (auto) 0.0 Anion Gap 15 Estim Creat Clear Calc 100.1 Estimated GFR > 60 Random Glucose 110 Calcium 10.2 Phosphorus 4.5 Magnesium 2.0 Total Bilirubin 0.3 AST 56 H ALT 41 H Alkaline Phosphatase 140 H Total Protein 6.2 L Albumin 3.3 L <Latosha Aj - Last Filed: 07/23/24 09:47> Procedures Date of Service Date of Service: 07/23/24 <Latosha Villaltacomo - Last Filed: 07/23/24 09:47> 07/23/24 <Efe Pinto PA-C - Last Filed: 07/23/24 10:09> 07/23/24 <Kuldeep Gee MD - Last Filed: 07/23/24 10:09> Progress Note: A&P Assessment and plan (1) Status post pneumonectomy: Status: Acute <Latosha Aj - Last Filed: 07/23/24 09:47> Assessment and Plan: Mani is POD #6 s/p left thoracotomy, initial left lower lobectomy extended to left completion pneumonectomy for pulmonary sepsis, necrotizing abscess of left lower and upper lobe. Overall continues to do fairly well post operatively, stable. No bowel movement or flatulence reported, had a straight catheter overnight for urination. Continues to be on pressors - titrating down, and decreased nasal cannula to 4-6L. Patient was encouraged to do spirometry 10x per hour, and chest physiotherapy. Pain control, continue ambulation to chair, increased PO diet with nutritional supplements. He is on furosemide for pulmonary edema. <Latosha Aj - Last Filed: 07/23/24 09:47> Patient is POD #6 s/p left thoracotomy, initial left lower lobectomy extended to left completion pneumonectomy for pulmonary sepsis, necrotizing abscess of left lower and upper lobe. Overall continues to do fairly well post operatively, stable. He continues to have incision site pain, managing well with current pain medications. No bowel movement or flatulence reported, had a straight catheter overnight for urination, will continue as needed. Bowel regimen ordered. Continues to be on pressors - titrating down, and decreased nasal cannula to 4-6L. Patient was encouraged to do spirometry 10x per hour, and chest physiotherapy. Pain control, continue ambulation to chair as tolerated, increased PO diet with nutritional supplements. He is on furosemide for pulmonary edema. Will continue to follow patient. <Efe Pinto PA-C - Last Filed: 07/23/24 10:09> Patient is POD #6 s/p left thoracotomy, initial left lower lobectomy extended to left completion pneumonectomy for pulmonary sepsis, necrotizing abscess of left lower and upper lobe. Overall continues to do fairly well post operatively, stable. He continues to have incision site pain, managing well with current pain medications. No bowel movement or flatulence reported, had a straight catheter overnight for urination, will continue as needed. Bowel regimen ordered. Continues to be on pressors - titrating down, and decreased nasal cannula to 4-6L. Patient was encouraged to do spirometry 10x per hour, and chest physiotherapy. Pain control, continue ambulation to chair as tolerated, increased PO diet with nutritional supplements. He is on furosemide for pulmonary edema. Will continue to follow patient. As noted above <Kuldeep Gee MD - Last Filed: 07/23/24 10:09> Time Spent With Patient Time: Total time managing care of this patient today ____ minutes. <Latosha Rocha - Last Filed: 07/23/24 09:47> Total time managing care of this patient today _30___ minutes. <Efe Pinto PA-C - Last Filed: 07/23/24 10:09> Quality Stroke Does the patient have a stroke diagnosis?: No <Latosha Aj - Last Filed: 07/23/24 09:47> VTE Prior VTE?: No <Latosha Aj - Last Filed: 07/23/24 09:47> VTE Risk Level:: Medical - moderate - high <Latosha Aj - Last Filed: 07/23/24 09:47> VTE Device Contraindication: Treatment Not Indicated <Latosha Aj - Last Filed: 07/23/24 09:47> VTE Drug Contraindication: N/A - Med Ordered <Latoshakathy Garzono - Last Filed: 07/23/24 09:47>
[2024-07-23] MEDS: Midodrine HCl 5 MG TABLET 15 MG PO ×3 (09:35→21:01)
[2024-07-23] MEDS: Furosemide 40 MG/4 ML VIAL IVPUSH (09:35)
[2024-07-23] MEDS: polyethylene glycoL 3350 17 GM POWD.PACK PO (11:00)
[2024-07-23] MEDS: Docusate Sodium 100 MG CAPSULE PO ×2 (11:00→21:00)
[2024-07-23 17:18] LABS: Fungitell <31 pg/mL (<60); Fungitell 1,3 beta glucan Negative
--- NOTE | 2024-07-23 18:56 | PC.NURSE ---
Assumed care at 0700. Pt. A&Ox4, c/o intermittent dizziness. Norepinephrine gtt weaned off, midodrine given per MAR, MAPs >65. R radial Andria removed. Pt. remains SR/ST on tele, HR 70s-100s, occasional PVCs. Pt. ambulated to chair with PT, spent approx 1.5 hrs in the recliner, ambulated back to bed by this RN. Pt. with inmt SOB and MCDANIEL, coarse cough, producing moderate amt. thick mitchell sputum, suctioning self. 4-6L NC [place]. Pt. bladder scanned at 0800- 325 cc. Pt. voided approx. 150 cc dark yellow urine in urinal. Bladder scanned at 1600 for 607cc- Pt. stood at side of bed, voided 250cc. Post-void bladder scan 414cc- MD notified, reinsertion of trevino ordered per MD. 16fr coude catheter with 30cc balloon inserted. Patient medication for pain per JUN with CRISTINE oxy 10mg and PRN dilaudid. Q2 repositioning performed. Family at bedside and updated by this RN. Plan of care ongoing.
[2024-07-23 21:47] LABS: Alanine Aminotransferase 64 U/L (0-40); Albumin Level 3.3 g/dL (3.5-5.0); Alkaline Phosphatase 176 U/L (39-117); Aspartate Amino Transferase 88 U/L (5-37); Bilirubin Total 0.3 mg/dL (0.0-1.0); Blood Urea Nitrogen 38 mg/dL (9-16); Calcium 10.2 mg/dL (8.4-10.2); Creatinine Clr Calc Pharmacy 91.7; Estimated Glomerular Filt Rate > 60; Glucose Random 106 mg/dL (60-115); Total Protein 6.3 g/dL (6.5-8.0)
[2024-07-23 23:36] LABS: Anion Gap 15 (12-20); Carbon Dioxide 34 mmol/L (22-29); Chloride 98 mmol/L (96-108); Potassium 4.2 mmol/L (3.3-5.1); Sodium 143 mmol/L (135-145)
[2024-07-24] VITALS (25 sets, daily range): BP systolic 92–122; BP diastolic 57–72; PULSE 59–109; RESP 12–25; TEMP 36.2–36.6; O2SAT 89–96; BMI 19.1
[2024-07-24] MEDS: Midodrine HCl 5 MG TABLET 15 MG PO ×4 (02:21→20:12)
[2024-07-24] MEDS: HYDROmorphone HCl 0.5 MG/0.5 ML SYRINGE IVPUSH ×5 (02:22→17:09)
[2024-07-24 05:42] LABS: MANUAL DIFF FLAG NO
[2024-07-24 05:46] LABS: Basophils Absolute Auto 0.1 X10*3/uL (0.0-0.2); Basophils Percent Auto 1.2 % (0-2); Eosinophils Absolute Auto 0.7 X10*3/uL (0.0-0.4); Eosinophils Percent Auto 7.1 % (0-4); Hematocrit 37.7 % (42.0-52.0); Imm Gran Abs Auto 0.19 X10*3/uL (0.00-0.03); Lymphocytes Absolute Auto 1.1 X10*3/uL (1.2-4.9); Lymphocytes Percent Auto 11.3 % (20-40); Mean Corpuscular HGB Conc 31.8 g/dl (31.0-36.0); Mean Corpuscular Volume 94.3 fL (80.0-98.0); Mean Platelet Volume 9.1 fL (9.4-12.4); Monocytes Percent Auto 10.1 % (2-11); Neutrophils Absolute Auto 6.4 x10*3/uL (2.0-8.3); Neutrophils Percent Auto 68.3 % (45-73); Platelet Count 406 X10*3/uL (160-400); Red Cell Distribution Width 13.9 % (11.0-16.0); White Blood Count 9.4 X10*3/uL (4.8-10.8)
[2024-07-24 06:12] LABS: Alanine Aminotransferase 104 U/L (0-40); Albumin Level 3.3 g/dL (3.5-5.0); Anion Gap 13 (12-20); Aspartate Amino Transferase 184 U/L (5-37); Bilirubin Total 0.4 mg/dL (0.0-1.0); Blood Urea Nitrogen 37 mg/dL (9-16); Calcium 10.2 mg/dL (8.4-10.2); Carbon Dioxide 35 mmol/L (22-29); Chloride 99 mmol/L (96-108); Creatinine Clr Calc Pharmacy 104.8; Estimated Glomerular Filt Rate > 60; Glucose Random 105 mg/dL (60-115); Magnesium 2.1 mg/dL (1.6-2.6); Potassium 4.3 mmol/L (3.3-5.1); Sodium 143 mmol/L (135-145); Total Protein 6.4 g/dL (6.5-8.0)
[2024-07-24 06:22] LABS: Alkaline Phosphatase 315 U/L (39-117)
[2024-07-24] MEDS: levoFLOXacin/D5W 750 MG/150 ML PIGGYBACK 150 MG IV (07:40)
[2024-07-24] MEDS: 0.9 % Sodium Chloride Flush 10 ML SYRINGE 5 ML IVFLUSH ×3 (07:40→20:15)
[2024-07-24] MEDS: oxyCODONE HCl ER 10 MG TAB.ER.12H PO ×3 (07:41→20:12)
[2024-07-24] MEDS: Heparin Sodium,Porcine 5,000 UNIT/ML VIAL 5000 UNIT SUBCUT ×2 (07:42→20:15)
[2024-07-24] MEDS: Docusate Sodium 100 MG CAPSULE PO ×2 (07:42→20:12)
[2024-07-24] MEDS: polyethylene glycoL 3350 17 GM POWD.PACK PO (07:43)
--- NOTE | 2024-07-24 08:56 | P.PNCC_ITS ---
Subjective Subjective Date of Service: 07/24/24 Interval History: Overall his nourishment looks better, he looks better Unstable oxygen requirement, off Levophed support States he hates the breakfast here, wants only scrambled egg and toast Critical Care Time (minutes): 35 Physical Exam 2 Vital Signs: Vital Signs: Last Vital Signs Temp 97.6 F 07/24/24 08:00 Pulse 80 07/24/24 08:00 Resp 19 07/24/24 08:00 BP 104/67 07/24/24 08:00 Pulse Ox 89 L 07/24/24 08:00 O2 Del Method Large Bore Nasal Cannula 07/24/24 08:00 O2 Flow Rate 6 07/24/24 08:00 FiO2 40 07/19/24 15:56 BMI result Body Mass Index 19.1 General: Calm, comfortable sitting in the bed and talking to us Nutritional Appearance: well nourished and overweight Eyes: appearance normal, both eyes and all related structures; Alignment and Position: alignment normal and position normal Neck: No lymphadenopathy, no thyromegaly Resp: bilateral air entry equal, significant crackles heard on the right side Cardio: Regular rate, regular rhythm; Heart sounds: S1 normal heart sound present and S2 normal heart sound present GI: soft, nontender, no guarding, no hepatosplenomegaly : bladder normal to inspection, bladder normal to palpation, no renal angle tenderness Skin: no rashes or lesions noted and elasticity normal Neuro: oriented to person, oriented to place, oriented to time and moves all extremities Objective Data Labs 07/24/24 05:26 07/24/24 05:26 Labs: Laboratory Results - last 24 hr 07/20/24 07/23/24 07/24/24 13:11 20:49 05:26 WBC 9.4 RBC 4.00 L Hgb 12.0 L Hct 37.7 L MCV 94.3 MCH 30.0 MCHC 31.8 RDW 13.9 Plt Count 406 H MPV 9.1 L Immature Gran % (Auto) 2.0 H Neut % (Auto) 68.3 Lymph % (Auto) 11.3 L [place] % (Auto) 10.1 Eos % (Auto) 7.1 H Baso % (Auto) 1.2 Lymph # (Auto) 1.1 L [place] # (Auto) 1.0 Eos # (Auto) 0.7 H Baso # (Auto) 0.1 Abs Immat Gran (auto) 0.19 H Absolute Neuts (auto) 6.4 Absolute Nucleated RBC 0.000 Nucleated RBC % (auto) 0.0 Sodium 143 143 Potassium 4.2 4.3 Chloride 98 99 Carbon Dioxide 34 H 35 H Anion Gap 15 13 BUN 38 H 37 H Creatinine 0.71 0.64 Estim Creat Clear Calc 91.7 104.8 Estimated GFR > 60 > 60 Random Glucose 106 105 Calcium 10.2 10.2 Phosphorus 5.0 H Magnesium 2.1 Total Bilirubin 0.3 0.4 AST 88 H 184 H ALT 64 H 104 H Alkaline Phosphatase 176 H 315 H Total Protein 6.3 L 6.4 L Albumin 3.3 L 3.3 L Beta-(1,3)-D-Glucan <31 B-(1,3)-D-Glucan Intrp Negative Microbiology Microbiology Results: Microbiology 07/11/24 10:46 Bronchial Washings Fungal Identification - Preliminary No growth after 1 week. 07/11/24 10:46 Bronchial Washings Direct Acid Fast Bacilli Smear - Final 07/11/24 10:46 Bronchial Washings Gram Stain - Final 07/11/24 10:46 Bronchial Washings Routine Culture - Final No growth after 2 days 07/04/24 08:23 Sputum - Expectorated Gram Stain - Final 07/04/24 08:23 Sputum - Expectorated Sputum Culture - Final Briseida albicans 06/22/24 15:30 Sputum - Expectorated Gram Stain - Final 06/22/24 15:30 Sputum - Expectorated Sputum Culture - Final Briseida albicans 06/14/24 11:04 Blood - Venous Blood Culture - Final No growth after 5 days. 06/14/24 11:04 Blood - Venous Blood Culture - Final No growth after 5 days. 06/14/24 16:08 Sputum - Expectorated Direct Acid Fast Bacilli Smear - Final 06/16/24 03:15 Sputum - Expectorated Direct Acid Fast Bacilli Smear - Final 06/16/24 10:30 Sputum - Expectorated Direct Acid Fast Bacilli Smear - Final Progress Note: A&P Assessment and plan (1) Status post pneumonectomy: Status: Acute (2) Pneumonia: Status: Acute (3) Acute hypoxic respiratory failure: Status: Acute (4) Abscess of lung with pneumonia: Status: Acute (5) Hypoxia: Status: Acute Plan 59-year-old gentleman, recent 30+ pack-year smoker admitted on 06/14/2024 with hypoxia and multifocal pneumonia with abscesses. Patient has been treated with empiric antibiotics with essentially negative cultures. His bronchoscopic lavage also had essentially negative cultures. However, clinically his pulmonary abscess got worse an he had an attempted left lower lobectomy on 07/17/2024, however he required completion left pneumonectomy, now being monitored in the intensive care unit. Extubated 07/18/2024. Neuro: pain: On oxycodone 10mg TID, PRN dilaudid Cardiac: Shock: Possibly secondary to hemodynamic changes post pneumonectomy Off Levophed support since yesterday afternoon. continue midodrine 15mg q6h Respiratory: lung abscess: s/p pneumonectomy on 07/18/2024 extubated on 07/19/2024, had episodes of flash pulmonary edema treated with lasix. decrease in oxygen requirement down to 4-6L/min incentive spirometry, mobilization, chest percussion therapy GI: on oral feeds Transaminitis: Not on hepatotoxic medications Fluid balance net-700 cc We will get ultrasound of the liver chronic malnutrition: improving with diet, BMI and weight improving Renal: We will closely monitor I's and O's Avoid nephrotoxic medications Heme: Chronic anemia, closely monitor H&H, transfuse for hemoglobin less than 7 grams/deciliter Endocrine: Blood sugars under control Sliding scale insulin as needed Infectious disease: negative pancultures We will stop levofloxacin as he received it for 19 days. Musculoskeletal: Decubitus ulcer prevention protocol Lines: arterial line- will take out Prophylaxis: heparin Quality Stroke Does the patient have a stroke diagnosis?: No VTE Prior VTE?: No VTE Risk Level:: Medical - moderate - high VTE Device Contraindication: Treatment Not Indicated VTE Drug Contraindication: N/A - Med Ordered
--- NOTE | 2024-07-24 11:05 | PM.EVENT ---
Event Note Date of Service: 07/25/24 Event Note: This patient is seen and examined and reviewed with the ICU team: Patient is here for long time Physical exam and assessment and plan coordinated , Agree with the plan in addition: 59-year-old gentleman, recent 30+ pack-year smoker admitted on 06/14/2024 with hypoxia and multifocal pneumonia with abscesses. Patient has been treated with empiric antibiotics with essentially negative cultures. His bronchoscopic lavage also had essentially negative cultures. However, clinically his pulmonary abscess got worse an he had an attempted left lower lobectomy on 07/17/2024, however he required completion left pneumonectomy, now being monitored in the intensive care unit. Extubated 07/18/2024. hypotesnion:on levophed ,improved -Off Levophed,thought to be Possibly secondary to hemodynamic changes post pneumonectomy on midodrine 15mg q6h Respiratory: lung abscess: s/p pneumonectomy on 07/18/2024 extubated on 07/19/2024, had episodes of flash pulmonary edema treated with lasix. decrease in oxygen requirement down to 4-6L/min incentive spirometry, mobilization, chest percussion therapy GI: on oral feeds Transaminitis: Not on hepatotoxic medications lfts slowly trending up,off antibiotics no abd pain or anusea or vomiting moniter ,icu added us liver chronic malnutrition: improving with diet, BMI and weight improving Time Spent With Patient Time: Total time managing care of this patient today ____ minutes.
--- NOTE | 2024-07-24 11:32 | PM.PNGS ---
Subjective Subjective Date of Service: 07/24/24 Interval history: 59 y/o male POD 6, s/p left pneumonectomy doing well today. Patient was resting at the time of initial evaluation. He continues to endorse incisional site pain. Denies shortness of breath while on 6L oxygen via nasal cannula. States he has been able to ambulate to the chair in his room and has been using spirometry as instructed. He continues to use suction for oral secretions. He is tolerating his diet well. He denies bowel movements at this time, endorses passing of flatus. Patient continues to have difficulty urinating with high PVR. Patient now has coudet catheter. He has been weened off pressors and his BP has been managed with midodrine. Physical Exam Vital Signs: Vital Signs: Last Vital Signs Temp 97.6 F 07/24/24 08:00 Pulse 84 07/24/24 10:00 Resp 19 07/24/24 10:00 BP 94/59 L 07/24/24 10:00 Pulse Ox 94 07/24/24 10:00 O2 Del Method Large Bore Nasal Cannula 07/24/24 10:00 O2 Flow Rate 6 07/24/24 10:00 FiO2 40 07/19/24 15:56 BMI result Body Mass Index 19.1 Const: General: cooperative and no acute distress Nutritional Appearance: malnourished Orientation/consciousness: patient oriented x3 Chest: Other: Incision site on left chest clean dry and intact, no signs of infection. Steri strips intact overlaying the incision. Pain to palpation of the chest and incision site Resp: Other: Normal work of breathing while on 6L O2 via nasal cannula. Removed nasal cannula for trial during evaluation and patient slowly desaturated to 88%. Effort & Inspection: normal respiratory effort and able to speak in complete sentences Neuro: General: patient oriented x3 Objective Data Active Medications Docusate Sodium (Docusate Sodium 100 Mg Capsule) 100 mg PO BID [facility] Last Admin: 07/24/24 07:42 Dose: 100 mg Documented By: RICHY Furosemide (Furosemide 40 Mg/4 Ml Vial) 40 mg IVPUSH DAILY [facility]; Protocol Heparin Sodium (Porcine) (Heparin Sodium,Porcine 5,000 Unit/Ml Vial) 5,000 unit SUBCUT Q12H [facility] Last Admin: 07/24/24 07:42 Dose: 5,000 unit Documented By: RICHY Hydromorphone HCl (Hydromorphone Hcl 0.5 Mg/0.5 Ml Syringe) 0.5 mg IVPUSH Q2H PRN; Protocol PRN Reason: Pain, Moderate(Pain Scale 4-6) Last Admin: 07/24/24 10:29 Dose: 0.5 mg Documented By: AYLIN Midodrine (Midodrine Hcl 5 Mg Tablet) 15 mg PO Q6H [facility] Last Admin: 07/24/24 07:41 Dose: 15 mg Documented By: RICHY Ondansetron HCl (Ondansetron Hcl 4 Mg/2 Ml Vial) 4 mg IVPUSH Q8H PRN PRN Reason: Nausea and Vomiting Last Admin: 07/18/24 21:28 Dose: 4 mg Documented By: KIARRA Oxycodone HCl (Oxycodone Hcl Er 10 Mg Tab.Er.12h) 10 mg PO TID [facility] Last Admin: 07/24/24 07:41 Dose: 10 mg Documented By: RICHY Polyethylene Glycol (Polyethylene Glycol 3350 17 Gm Powd.Pack) 17 gm PO DAILY [facility] Last Admin: 07/24/24 07:43 Dose: 17 gm Documented By: RICHY Sodium Chloride (0.9 % Sodium Chloride Flush 10 Ml Syringe) 5 ml IVFLUSH QSHIFT [facility] Last Admin: 07/24/24 07:40 Dose: 5 ml Documented By: RICHY Labs 07/24/24 05:26 07/24/24 05:26 Labs: Laboratory Results - last 24 hr 07/20/24 07/23/24 07/24/24 13:11 20:49 05:26 MCV 94.3 MCH 30.0 MCHC 31.8 RDW 13.9 Plt Count 406 H MPV 9.1 L Immature Gran % (Auto) 2.0 H Neut % (Auto) 68.3 Lymph % (Auto) 11.3 L [place] % (Auto) 10.1 Eos % (Auto) 7.1 H Baso % (Auto) 1.2 Lymph # (Auto) 1.1 L [place] # (Auto) 1.0 Eos # (Auto) 0.7 H Baso # (Auto) 0.1 Abs Immat Gran (auto) 0.19 H Absolute Neuts (auto) 6.4 Absolute Nucleated RBC 0.000 Nucleated RBC % (auto) 0.0 Anion Gap 15 13 Estim Creat Clear Calc 91.7 104.8 Estimated GFR > 60 > 60 Random Glucose 106 105 Calcium 10.2 10.2 Phosphorus 5.0 H Magnesium 2.1 Total Bilirubin 0.3 0.4 AST 88 H 184 H ALT 64 H 104 H Alkaline Phosphatase 176 H 315 H Total Protein 6.3 L 6.4 L Albumin 3.3 L 3.3 L Beta-(1,3)-D-Glucan <31 B-(1,3)-D-Glucan Intrp Negative Procedures Date of Service Date of Service: 07/24/24 Progress Note: A&P Assessment and plan (1) Abscess of lung with pneumonia: Status: Acute Plan 59 y/o male POD 6, s/p left pneumonectomy due to pulmonary sepsis and necrotizing abscess of left lower and upper lobe. He doing well today. No longer needing pressors for BP control. He continues to have difficulty urinating, now using coudet catheter. Urology was consulted, will defer for continuing management. Patient continues to use 6L of oxygen via nasal cannula, during evaluation a trial of respiration on room air was performed, and the patient tolerated this fairly well, slowly desaturating to 88% while holding conversation. Other vitals were stable during this trial. Patient will remain on supplemental oxygen at this time. Will continue incentive spriometry, recommended continuing ambulation as tolerated and chest PT. Incision sites are dry, intact, not suggestive of infection at this time. Patients pain is well managed with current regimen, will continue as needed per ICU. Plan per ICU for transfer to [facility] floor. Time Spent With Patient Time: Total time managing care of this patient today ____ minutes. Quality Stroke Does the patient have a stroke diagnosis?: No VTE Prior VTE?: No VTE Risk Level:: Medical - moderate - high VTE Device Contraindication: Treatment Not Indicated VTE Drug Contraindication: N/A - Med Ordered
--- NOTE | 2024-07-24 11:34 | MHC.CLN ---
F/U PT IS MODERATELY MALNOURISHED PT'S APPETITE IS IMPROVING; WT UP 60.4KG REGULAR DIET NSG REPORTED PT ACCEPTING SUPPLEMENTS PT REQUESTING SPECIFIC FOOD ITEMS FOR MEALS I.E. SCRAMBLED EGGS AND MAORI TOAST FOR BREAKFAST ENSURE PROVIDES 700KCALS, 40G PROTEIN MAGIC CUP TID PROVIDES 870KCALS, 27G PROTEIN; 50% EST KCAL NEEDS NOW RECEPTIVE TO GELATEIN TID PER NSG PROVIDES 480KCALS, 60G PROTEIN PT IS ACCEPTING SUPPLEMENTS ABOVE CONTINUE TO MONITOR PO INTAKE
[2024-07-24] MEDS: Furosemide 40 MG/4 ML VIAL IVPUSH (12:32)
--- NOTE | 2024-07-24 12:35 | PM.UROCN ---
History of Present Illness Consult details Consult date: 07/24/24 Narrative: Mani is a 59 year old male s/p pneumonectomy. Currently in ICU. Called to evaluate - Urinary retention Review of Systems Review of Systems: Yes all other systems are reviewed and are negative Constitutional: Constitutional: Reports no additional constitutional complaints Eyes: Eyes: Reports no additional eye complaints ENT: Reports system reviewed and no additional complaints, except as documented Cardiovascular: Cardiovascular: Reports no additional cardiovascular complaints Respiratory: Respiratory: Reports no additional respiratory complaints Gastrointestinal: Gastrointestinal: Reports no additional gastrointestinal complaints Genitourinary: Genitourinary: Reports as per HPI Musculoskeletal: Musculoskeletal: Reports no additional musculoskeletal complaints Integumentary/Breasts: Skin/Breast: Reports system reviewed and no additional complaints, except as docu Neurologic: Reports system reviewed and no additional complaints, except as documented Psychiatric: Psychiatric: Reports no additional psychiatric complaints Endocrine: Endocrine: Reports no additional endocrine complaints Hematologic/Lymphatic: Hematologic/Lymphatic: Reports no additional hematologic/lymphatic complaints Allergic/Immunologic: Allergic/Immunologic: Reports no additional allergic/immunologic complaints PMFSH Past Medical History Medical History Acute respiratory disease Wheezing on auscultation Cough Family History Family History Father Lung cancer Mother Unknown family medical history Family history: reviewed and not pertinent Social History Social History Household Members: Family Household Members Other:: mother and disabled brother Housing: Apartment Do you presently have visiting nurse or other home services: Yes Alcohol intake: former Patient Tobacco Use Status: Former Tobacco user Tobacco use type: Cigarette e-Cigarette/Vaping Use: Never Used Second Hand Smoke Exposure: No service: No Meds Allergies Allergy/AdvReac Type Severity Reaction Status Date / Time amoxicillin Allergy Intermediate Rash Verified 07/17/24 06:35 penicillin G Allergy Intermediate Rash Verified 07/17/24 06:35 penicillin V Allergy Intermediate Rash Verified 07/17/24 06:35 Penicillins [PENICILLINS] Allergy Intermediate Rash Verified 07/17/24 06:35 tomato Allergy Intermediate Rash Verified 07/17/24 06:35 clindamycin Allergy Intermediate rash Uncoded 07/05/24 07:24 Active Medications: Current Medications Docusate Sodium (Docusate Sodium 100 Mg Capsule) 100 mg PO BID [facility] Last Admin: 07/24/24 07:42 Dose: 100 mg Furosemide (Furosemide 40 Mg/4 Ml Vial) 40 mg IVPUSH DAILY [facility]; Protocol Last Admin: 07/24/24 12:32 Dose: 40 mg Heparin Sodium (Porcine) (Heparin Sodium,Porcine 5,000 Unit/Ml Vial) 5,000 unit SUBCUT Q12H [facility] Last Admin: 07/24/24 07:42 Dose: 5,000 unit Hydromorphone HCl (Hydromorphone Hcl 0.5 Mg/0.5 Ml Syringe) 0.5 mg IVPUSH Q2H PRN; Protocol PRN Reason: Pain, Moderate(Pain Scale 4-6) Last Admin: 07/24/24 12:26 Dose: 0.5 mg Midodrine (Midodrine Hcl 5 Mg Tablet) 15 mg PO Q6H [facility] Last Admin: 07/24/24 07:41 Dose: 15 mg Ondansetron HCl (Ondansetron Hcl 4 Mg/2 Ml Vial) 4 mg IVPUSH Q8H PRN PRN Reason: Nausea and Vomiting Last Admin: 07/18/24 21:28 Dose: 4 mg Oxycodone HCl (Oxycodone Hcl Er 10 Mg Tab.Er.12h) 10 mg PO TID [facility] Last Admin: 07/24/24 07:41 Dose: 10 mg Polyethylene Glycol (Polyethylene Glycol 3350 17 Gm Powd.Pack) 17 gm PO DAILY [facility] Last Admin: 07/24/24 07:43 Dose: 17 gm Sodium Chloride (0.9 % Sodium Chloride Flush 10 Ml Syringe) 5 ml IVFLUSH QSHIFT [facility] Last Admin: 07/24/24 07:40 Dose: 5 ml Home Medications ?Medication ?Instructions ?Recorded ?Confirmed ?Last Taken ?Type albuterol sulfate 90 mcg/actuation 2 puff inhalation Q6H PRN 06/14/24 06/14/24 Unknown History aerosol inhaler shortness of breath or wheezing Physical Exam Vital Signs: Vital Signs: Last Vital Signs Temp 97.1 F 07/24/24 12:00 Pulse 82 07/24/24 12:00 Resp 22 H 07/24/24 12:00 BP 103/64 07/24/24 12:00 Pulse Ox 93 07/24/24 12:00 O2 Del Method Nasal Cannula 07/24/24 12:00 O2 Flow Rate 6 07/24/24 12:00 FiO2 40 07/19/24 15:56 BMI result Body Mass Index 19.1 Results Labs 08/17/24 05:27 08/17/24 05:27 Labs: Abnormal lab results 07/23/24 07/24/24 Range/Units 20:49 05:26 RBC 4.00 L (4.60-5.80) X10*6/uL Hgb 12.0 L (14.0-18.0) g/dl Hct 37.7 L (42.0-52.0) % Plt Count 406 H (160-400) X10*3/uL MPV 9.1 L (9.4-12.4) fL Immature Gran % (Auto) 2.0 H (0.0-0.4) % Lymph % (Auto) 11.3 L (20-40) % Eos % (Auto) 7.1 H (0-4) % Lymph # (Auto) 1.1 L (1.2-4.9) X10*3/uL Eos # (Auto) 0.7 H (0.0-0.4) X10*3/uL Abs Immat Gran (auto) 0.19 H (0.00-0.03) X10*3/uL Carbon Dioxide 34 H 35 H (22-29) mmol/L BUN 38 H 37 H (9-16) mg/dL Phosphorus 5.0 H (2.7-4.5) mg/dL AST 88 H 184 H (5-37) U/L ALT 64 H 104 H (0-40) U/L Alkaline Phosphatase 176 H 315 H (39-117) U/L Total Protein 6.3 L 6.4 L (6.5-8.0) g/dL Albumin 3.3 L 3.3 L (3.5-5.0) g/dL Short CBC 07/24/24 Range/Units 05:26 WBC 9.4 (4.8-10.8) X10*3/uL Hgb 12.0 L (14.0-18.0) g/dl Hct 37.7 L (42.0-52.0) % Plt Count 406 H (160-400) X10*3/uL BMP 07/23/24 07/24/24 20:49 05:26 Sodium 143 143 Potassium 4.2 4.3 Chloride 98 99 Carbon Dioxide 34 H 35 H BUN 38 H 37 H Creatinine 0.71 0.64 Calcium 10.2 10.2 Liver Function 07/23/24 07/24/24 Range/Units 20:49 05:26 Total Bilirubin 0.3 0.4 (0.0-1.0) mg/dL AST 88 H 184 H (5-37) U/L ALT 64 H 104 H (0-40) U/L Alkaline Phosphatase 176 H 315 H (39-117) U/L Albumin 3.3 L 3.3 L (3.5-5.0) g/dL Urine 06/15/24 Range/Units 07:14 Urine Color Yellow Urine Appearance Clear Urine pH 5.5 (5.0-9.0) Ur Specific [place] >= 1.030 H (1.005-1.025) Urine Protein Negative (Neg-Trace) mg/dL Urine Glucose (UA) Negative (Negative) mg/dL Assessment and Plan (1) Status post pneumonectomy: Status: Acute (2) Generalized weakness: Status: Acute (3) Urinary retention: Status: Acute Plan Recommend start flomax 0.4 mg daily as long as not medically contraindicated He denies prior urinary issues. Pt has had deconditioning, not currently ambulating, cont trevino for now. Voiding trial in 5 -7 days Pt is being transferred to the floor, will likely benefit from physical therapy out patient follow up with Urology Procedures Date of Service Date of Service: 08/20/24
--- NOTE | 2024-07-24 12:58 | MHC.CM.PN ---
Pt stable and can be transferred to the medical floor for continued care: clinical updates sent to [facility] / Carlos Alberto in anticipation of eventual STR transfer.
--- NOTE | 2024-07-24 16:48 | PC.NURSE ---
Assumed care of patient 0700 IV Levaquin given per orders. Levaquin discontinued after 0900 rounds with MD. Lasix 40 mg IVP given per new orders. Increasing LFTs discussed with healthcare team at rounds. New abdominal ultrasound ordered and completed, pt tolerated well Pain management plan: oxycodone 10 mg TID, pt states he feels pain regimen has been effective. PRN Dilaudid 0.5 mg given at approx 10:30am and 12:30am for mobility to recliner chair and higher reported pain levels with ambulation. PT up to recliner 10:30am-13:00 PM. Pt states 10/10 pain at 12:30 and asked to return to bed at 13:00. Coudee catheter in place. Urology consult intiated today. Per Dr. Pierre, will leave catheter in place to start Flomax and inititate voiding trial in 5-7 days per note. Coudee will stay upon transfer to [place]. Sister Rosalie at bedside and updated by ICU MD. Plan for transfer of patient to [facility] 487
[2024-07-24 17:36] LABS: Glucose, Whole Blood 117 mg/dL (60-115)
[2024-07-25] VITALS (11 sets, daily range): BP systolic 101–124; BP diastolic 58–88; PULSE 64–98; RESP 18–20; TEMP 36.1–37; O2SAT 89–96; BMI 20.3
[2024-07-25] MEDS: Midodrine HCl 5 MG TABLET 15 MG PO ×4 (02:57→21:07)
[2024-07-25] MEDS: HYDROmorphone HCl 0.5 MG/0.5 ML SYRINGE IVPUSH ×4 (03:01→13:49)
[2024-07-25 07:36] LABS: Alanine Aminotransferase 99 U/L (0-40); Albumin Level 3.3 g/dL (3.5-5.0); Anion Gap 14 (12-20); Aspartate Amino Transferase 80 U/L (5-37); Bilirubin Total 0.3 mg/dL (0.0-1.0); Blood Urea Nitrogen 36 mg/dL (9-16); Calcium 9.9 mg/dL (8.4-10.2); Carbon Dioxide 35 mmol/L (22-29); Chloride 97 mmol/L (96-108); Estimated Glomerular Filt Rate > 60; Glucose Random 102 mg/dL (60-115); Potassium 3.8 mmol/L (3.3-5.1); Sodium 142 mmol/L (135-145); Total Protein 6.4 g/dL (6.5-8.0)
[2024-07-25 07:47] LABS: Alkaline Phosphatase 311 U/L (39-117)
[2024-07-25] MEDS: polyethylene glycoL 3350 17 GM POWD.PACK PO (08:09)
[2024-07-25] MEDS: oxyCODONE HCl ER 10 MG TAB.ER.12H PO ×3 (08:09→21:07)
[2024-07-25] MEDS: Heparin Sodium,Porcine 5,000 UNIT/ML VIAL 5000 UNIT SUBCUT ×2 (08:10→21:07)
[2024-07-25] MEDS: Furosemide 40 MG/4 ML VIAL IVPUSH (08:11)
[2024-07-25] MEDS: Docusate Sodium 100 MG CAPSULE PO ×2 (08:11→21:07)
[2024-07-25] MEDS: 0.9 % Sodium Chloride Flush 10 ML SYRINGE 5 ML IVFLUSH ×2 (08:11→17:41)
--- NOTE | 2024-07-25 08:22 | PM.PNGS ---
Subjective Subjective Date of Service: 07/25/24 Interval history: POD 7 following left pneumonectomy. He mainly complains of incisional pain. Denies shortness of breath. Remains on nasal cannula O2. Physical Exam Vital Signs: Vital Signs: Last Vital Signs Temp 98.6 F 07/25/24 07:42 Pulse 64 07/25/24 07:42 Resp 18 07/25/24 07:42 BP 123/88 07/25/24 07:42 Pulse Ox 89 L 07/25/24 07:42 O2 Del Method Nasal Cannula 07/25/24 07:42 O2 Flow Rate 6 07/25/24 07:42 FiO2 40 07/19/24 15:56 BMI result Body Mass Index 20.3 Const: General: cooperative and no acute distress Orientation/consciousness: patient oriented x3 Chest: Other: Incision site on left chest clean dry and intact, no signs of infection. Steri strips intact overlaying the incision. Pain to palpation of the chest and incision site Resp: Effort & Inspection: able to speak in complete sentences, no cough and no respiratory distress Neuro: General: patient oriented x3 Objective Data Active Medications Docusate Sodium (Docusate Sodium 100 Mg Capsule) 100 mg PO BID [facility] Last Admin: 07/24/24 20:12 Dose: 100 mg Documented By: JOSE ALFREDO Furosemide (Furosemide 40 Mg/4 Ml Vial) 40 mg IVPUSH DAILY [facility]; Protocol Last Admin: 07/24/24 12:32 Dose: 40 mg Documented By: RICHY Heparin Sodium (Porcine) (Heparin Sodium,Porcine 5,000 Unit/Ml Vial) 5,000 unit SUBCUT Q12H [facility] Last Admin: 07/24/24 20:15 Dose: 5,000 unit Documented By: JOSE ALFREDO Hydromorphone HCl (Hydromorphone Hcl 0.5 Mg/0.5 Ml Syringe) 0.5 mg IVPUSH Q2H PRN; Protocol PRN Reason: Pain, Moderate(Pain Scale 4-6) Last Admin: 07/25/24 03:01 Dose: 0.5 mg Documented By: JOSE ALFREDO Midodrine (Midodrine Hcl 5 Mg Tablet) 15 mg PO Q6H [facility] Last Admin: 07/25/24 02:57 Dose: 15 mg Documented By: JOSE ALFREDO Ondansetron HCl (Ondansetron Hcl 4 Mg/2 Ml Vial) 4 mg IVPUSH Q8H PRN PRN Reason: Nausea and Vomiting Last Admin: 07/18/24 21:28 Dose: 4 mg Documented By: KIARRA Oxycodone HCl (Oxycodone Hcl Er 10 Mg Tab.Er.12h) 10 mg PO TID [facility] Last Admin: 07/24/24 20:12 Dose: 10 mg Documented By: JOSE ALFREDO Polyethylene Glycol (Polyethylene Glycol 3350 17 Gm Powd.Pack) 17 gm PO DAILY [facility] Last Admin: 07/24/24 07:43 Dose: 17 gm Documented By: RICHY Sodium Chloride (0.9 % Sodium Chloride Flush 10 Ml Syringe) 5 ml IVFLUSH QSHIFT [facility] Last Admin: 07/24/24 20:15 Dose: 5 ml Documented By: JOSE ALFREDO Labs 07/24/24 05:26 07/25/24 06:04 Labs: Laboratory Results - last 24 hr 07/24/24 07/25/24 07/25/24 17:30 06:00 06:04 Hold Purple Top SEE NOTE Anion Gap 14 Estim Creat Clear Calc 105.0 Estimated GFR > 60 POC Glucose 117 H Random Glucose 102 Calcium 9.9 Total Bilirubin 0.3 AST 80 H ALT 99 H Alkaline Phosphatase 311 H Total Protein 6.4 L Albumin 3.3 L Procedures Date of Service Date of Service: 07/25/24 Progress Note: A&P Assessment and plan (1) Abscess of lung with pneumonia: Status: Acute Plan 59-year-old male patient POD 7 following left pneumonectomy due to pulmonary sepsis and necrotic abscess involving left lower and upper lobes. He mainly complains of incisional pain which is controlled by his current pain regimen. He is now in [facility] on nasal O2 which she was tolerating well. Continue to monitor. Final pathology pending. Time Spent With Patient Time: Total time managing care of this patient today ____ minutes. Quality Stroke Does the patient have a stroke diagnosis?: No VTE Prior VTE?: No VTE Risk Level:: Medical - moderate - high VTE Device Contraindication: Treatment Not Indicated VTE Drug Contraindication: N/A - Med Ordered
--- NOTE | 2024-07-25 13:50 | HO.PM.IMPN ---
Subjective Subjective Date of Service: 07/25/24 Interval History: hypoxia ,s/p pneumonectomy Review of Systems sob improving says pain similar Physical Exam Vital Signs: Vital Signs: Last Vital Signs Temp 98.0 F 07/25/24 11:55 Pulse 98 07/25/24 12:18 Resp 19 07/25/24 11:55 BP 102/66 07/25/24 12:18 Pulse Ox 94 07/25/24 12:18 O2 Del Method Nasal Cannula 07/25/24 12:18 O2 Flow Rate 1.5 07/25/24 12:18 FiO2 40 07/19/24 15:56 BMI result Body Mass Index 20.3 Appearance: Alert.? Oriented X3.? cvs: rrr, [id number]. res: air entry improving somewhat on right side , left side pneumonectmy. abd: no rebound or guarding ,nt, bs present. ext pulses present , no cyanosis. neuro: axo3 , nonfocal. Objective Data Active Medications Acetaminophen (Acetaminophen 325 Mg Tablet) 650 mg PO Q6H PRN PRN Reason: Pain, Moderate(Pain Scale 4-6) Docusate Sodium (Docusate Sodium 100 Mg Capsule) 100 mg PO BID [facility] Last Admin: 07/25/24 08:11 Dose: 100 mg Documented By: CRYSTAL Furosemide (Furosemide 40 Mg/4 Ml Vial) 40 mg IVPUSH DAILY [facility]; Protocol Last Admin: 07/25/24 08:11 Dose: 40 mg Documented By: CRYSTAL Heparin Sodium (Porcine) (Heparin Sodium,Porcine 5,000 Unit/Ml Vial) 5,000 unit SUBCUT Q12H [facility] Last Admin: 07/25/24 08:10 Dose: 5,000 unit Documented By: CRYSTAL Midodrine (Midodrine Hcl 5 Mg Tablet) 15 mg PO Q6H [facility] Last Admin: 07/25/24 08:09 Dose: 15 mg Documented By: CRYSTAL Ondansetron HCl (Ondansetron Hcl 4 Mg/2 Ml Vial) 4 mg IVPUSH Q8H PRN PRN Reason: Nausea and Vomiting Last Admin: 07/18/24 21:28 Dose: 4 mg Documented By: KIARRA Oxycodone HCl (Oxycodone Hcl Er 10 Mg Tab.Er.12h) 10 mg PO TID [facility] Last Admin: 07/25/24 08:09 Dose: 10 mg Documented By: CRYSTAL Polyethylene Glycol (Polyethylene Glycol 3350 17 Gm Powd.Pack) 17 gm PO DAILY [facility] Last Admin: 07/25/24 08:09 Dose: 17 gm Documented By: CRYSTAL Sodium Chloride (0.9 % Sodium Chloride Flush 10 Ml Syringe) 5 ml IVFLUSH QSHIFT [facility] Last Admin: 07/25/24 08:11 Dose: 5 ml Documented By: CRYSTAL Labs 07/24/24 05:26 07/25/24 06:04 Labs: Laboratory Results - last 24 hr 07/24/24 07/25/24 07/25/24 17:30 06:00 06:04 Hold Purple Top SEE NOTE Anion Gap 14 Estim Creat Clear Calc 105.0 Estimated GFR > 60 POC Glucose 117 H Random Glucose 102 Calcium 9.9 Total Bilirubin 0.3 AST 80 H ALT 99 H Alkaline Phosphatase 311 H Total Protein 6.4 L Albumin 3.3 L Assessment and Plan (1) Status post pneumonectomy: Status: Acute Plan 59-year-old gentleman, recent 30+ pack-year smoker admitted on 06/14/2024 with hypoxia and multifocal pneumonia with abscesses. Patient has been treated with empiric antibiotics with essentially negative cultures. His bronchoscopic lavage also had essentially negative cultures. However, clinically his pulmonary abscess got worse an he had an attempted left lower lobectomy on 07/17/2024, however he required completion left pneumonectomy, now being monitored in the intensive care unit. Extubated 07/18/2024. Hypotension:thought to bePossibly secondary to hemodynamic changes post pneumonectomy improved -Off Levophed support since yesterday afternoon. continue midodrine 15mg q6h Hypoxia/lung abscess:s/p pneumonectomy on 07/18/2024,lung biopsy pending extubated on 07/19/2024, had episodes of flash pulmonary edema treated with lasix. decrease in oxygen requirement down to 4-6L/min negative pancultures,as per icu note:received levofloxacin for 19 days. incentive spirometry, mobilization, chest percussion therapy,taper oxygen Transaminitis:lft;s improving Not on hepatotoxic medications Fluid balance net-700 cc abd us:Cholelithiasis and biliary sludge with borderline wall thickening and mildly prominent common bile duct. moderate malnutrition: continue supplements dvt prophylax: s/c heaprin ongoing need: Status post pneumonectomy,-still requires oxygen, also has right-sided lung edema-on iv lasix ,lung biopsy pendin s/p pneumoectomy Quality Stroke Does the patient have a stroke diagnosis?: No VTE Prior VTE?: No VTE Risk Level:: Medical - moderate - high VTE Device Contraindication: Treatment Not Indicated VTE Drug Contraindication: N/A - Med Ordered
[2024-07-25] MEDS: oxyCODONE HCl Immed Release 5 MG TABLET 10 MG PO (17:39)
[2024-07-25] MEDS: Sodium Phosphate,Mono-Dibasic 133 ML ENEMA PR (18:05)
[2024-07-26 03:28] VITALS: BP 119/63; PULSE 55; RESP 18; TEMP 36.3; O2SAT 95
[2024-07-26] MEDS: Midodrine HCl 5 MG TABLET 15 MG PO ×4 (03:52→20:59)
[2024-07-26] MEDS: 0.9 % Sodium Chloride Flush 10 ML SYRINGE 5 ML IVFLUSH ×3 (03:53→15:27)
[2024-07-26] MEDS: oxyCODONE HCl Immed Release 5 MG TABLET 10 MG PO ×3 (04:01→20:59)
[2024-07-26 06:00] VITALS: BMI 18.4
[2024-07-26 07:41] VITALS: BP 109/61; PULSE 55; RESP 19; TEMP 36.8; O2SAT 92
--- NOTE | 2024-07-26 08:42 | P.PNGS_ITS ---
Subjective Subjective Date of Service: 07/26/24 Interval history: Pain better controlled this morning. Patient on 8 L nasal cannula O2. He was coughing up thick phlegm. Physical Exam 2 Vital Signs: Vital Signs: Last Vital Signs Temp 98.2 F 07/26/24 07:41 Pulse 55 07/26/24 07:41 Resp 19 07/26/24 07:41 BP 109/61 07/26/24 07:41 Pulse Ox 92 07/26/24 07:41 O2 Del Method Nasal Cannula 07/26/24 07:41 O2 Flow Rate 9 07/26/24 07:41 FiO2 40 07/19/24 15:56 BMI result Body Mass Index 18.4 Const: General: cooperative and no acute distress O rientation/consciousness: patient oriented x3 Chest: Other: Incision site on left chest clean dry and intact, no signs of infection. Steri strips intact overlaying the incision. Pain to palpation of the chest and incision site Resp: Effort & Inspection: able to speak in complete sentences, no cough and no respiratory distress Neuro: General: patient oriented x3 Objective Data Active Medications Acetaminophen (Acetaminophen 325 Mg Tablet) 650 mg PO Q6H PRN PRN Reason: Pain, Moderate(Pain Scale 4-6) Docusate Sodium (Docusate Sodium 100 Mg Capsule) 100 mg PO BID [facility] Last Admin: 07/25/24 21:07 Dose: 100 mg Documented By: CHERIE Furosemide (Furosemide 40 Mg/4 Ml Vial) 40 mg IVPUSH DAILY [facility]; Protocol Last Admin: 07/25/24 08:11 Dose: 40 mg Documented By: CRYSTAL Heparin Sodium (Porcine) (Heparin Sodium,Porcine 5,000 Unit/Ml Vial) 5,000 unit SUBCUT Q12H [facility] Last Admin: 07/25/24 21:07 Dose: 5,000 unit Documented By: CHERIE Midodrine (Midodrine Hcl 5 Mg Tablet) 15 mg PO Q6H [facility] Last Admin: 07/26/24 03:52 Dose: 15 mg Documented By: MEGHAN Ondansetron HCl (Ondansetron Hcl 4 Mg/2 Ml Vial) 4 mg IVPUSH Q8H PRN PRN Reason: Nausea and Vomiting Last Admin: 07/18/24 21:28 Dose: 4 mg Documented By: KIARRA Oxycodone HCl (Oxycodone Hcl Er 10 Mg Tab.Er.12h) 10 mg PO TID [facility] Last Admin: 07/25/24 21:07 Dose: 10 mg Documented By: CHERIE Oxycodone HCl (Oxycodone Hcl Immed Release 5 Mg Tablet) 10 mg PO Q6H PRN PRN Reason: Pain, Moderate(Pain Scale 4-6) Last Admin: 07/26/24 04:01 Dose: 10 mg Documented By: MEGHAN Polyethylene Glycol (Polyethylene Glycol 3350 17 Gm Powd.Pack) 17 gm PO DAILY [facility] Last Admin: 07/25/24 08:09 Dose: 17 gm Documented By: CRYSTAL Sodium Biphosphate/Sodium Phosphate (Sodium Phosphate,[place]-Dibasic 133 Ml Enema) 133 ml NC ONCE PRN PRN Reason: Constipation Last Admin: 07/25/24 18:05 Dose: 133 ml Documented By: CRYSTAL Sodium Chloride (0.9 % Sodium Chloride Flush 10 Ml Syringe) 5 ml IVFLUSH QSHIFT [facility] Last Admin: 07/26/24 03:53 Dose: 5 ml Documented By: MEGHAN Labs 07/24/24 05:26 07/25/24 06:04 Procedures Date of Service Date of Service: 07/26/24 Progress Note: A&P Assessment and plan (1) Abscess of lung with pneumonia: Status: Acute Plan 59-year-old male patient POD 8 following left pneumonectomy due to pulmonary sepsis and necrotic abscess involving left lower and upper lobes. Pain appears to be better controlled this morning. He continues to require nasal O2 at 8 L. continue the current pain regime. Awaiting pathology results. Time Spent With Patient Time: Total time managing care of this patient today ____ minutes. Quality Stroke Does the patient have a stroke diagnosis?: No VTE Prior VTE?: No VTE Risk Level:: Medical - moderate - high VTE Device Contraindication: Treatment Not Indicated VTE Drug Contraindication: N/A - Med Ordered
[2024-07-26] MEDS: Furosemide 40 MG/4 ML VIAL IVPUSH (09:35)
[2024-07-26] MEDS: Heparin Sodium,Porcine 5,000 UNIT/ML VIAL 5000 UNIT SUBCUT ×2 (09:35→21:00)
[2024-07-26] MEDS: polyethylene glycoL 3350 17 GM POWD.PACK PO (09:38)
[2024-07-26] MEDS: Docusate Sodium 100 MG CAPSULE PO ×2 (09:38→21:00)
[2024-07-26] MEDS: oxyCODONE HCl ER 10 MG TAB.ER.12H PO ×2 (09:44→21:01)
[2024-07-26 11:42] VITALS: BP 109/58; PULSE 77; RESP 19; TEMP 36.4; O2SAT 93
[2024-07-26] MEDS: Lidocaine 4 % Patch ADH..PATCH 1 PATCH TRANSDERMA (12:29)
[2024-07-26 12:37] LABS: Alanine Aminotransferase 157 U/L (0-40); Albumin Level 3.3 g/dL (3.5-5.0); Alkaline Phosphatase 446 U/L (39-117); Anion Gap 16 (12-20); Aspartate Amino Transferase 199 U/L (5-37); Bilirubin Total 0.4 mg/dL (0.0-1.0); Blood Urea Nitrogen 32 mg/dL (9-16); Carbon Dioxide 37 mmol/L (22-29); Chloride 91 mmol/L (96-108); Creatinine Clr Calc Pharmacy 102.8; Estimated Glomerular Filt Rate > 60; Glucose Random 165 mg/dL (60-115); Potassium 3.5 mmol/L (3.3-5.1); Sodium 140 mmol/L (135-145); Total Protein 6.5 g/dL (6.5-8.0)
--- NOTE | 2024-07-26 14:32 | P.PNIM_ITS ---
Subjective Subjective Date of Service: 07/26/24 Interval History: right lower rib cage area pain elevated lft's Review of Systems says pain seems to be improving with lidocaine patch no nausea or vomiting or fever Physical Exam 2 Vital Signs: Vital Signs: Last Vital Signs Temp 97.6 F 07/26/24 11:42 Pulse 77 07/26/24 11:42 Resp 19 07/26/24 11:42 BP 109/58 L 07/26/24 11:42 Pulse Ox 93 07/26/24 11:42 O2 Del Method Nasal Cannula 07/26/24 11:42 O2 Flow Rate 9 07/26/24 11:42 FiO2 40 07/19/24 15:56 BMI result Body Mass Index 18.4 Appearance: Alert.? Oriented X3.? cvs: rrr, [id number]. res: air entry improving somewhat on right side , left side pneumonectmy. abd: soft , right lower rib cage pain, bs present. ext pulses present , no cyanosis. neuro: axo3 , nonfocal. Objective Data Active Medications Acetaminophen (Acetaminophen 325 Mg Tablet) 650 mg PO Q6H PRN PRN Reason: Pain, Moderate(Pain Scale 4-6) Docusate Sodium (Docusate Sodium 100 Mg Capsule) 100 mg PO BID [facility] Last Admin: 07/26/24 09:38 Dose: 100 mg Documented By: JOAQUINN Furosemide (Furosemide 40 Mg/4 Ml Vial) 40 mg IVPUSH DAILY [facility]; Protocol Last Admin: 07/26/24 09:35 Dose: 40 mg Documented By: CRYSTAL Heparin Sodium (Porcine) (Heparin Sodium,Porcine 5,000 Unit/Ml Vial) 5,000 unit SUBCUT Q12H [facility] Last Admin: 07/26/24 09:35 Dose: 5,000 unit Documented By: CRYSTAL Midodrine (Midodrine Hcl 5 Mg Tablet) 15 mg PO Q6H [facility] Last Admin: 07/26/24 09:35 Dose: 15 mg Documented By: CRYSTAL Ondansetron HCl (Ondansetron Hcl 4 Mg/2 Ml Vial) 4 mg IVPUSH Q8H PRN PRN Reason: Nausea and Vomiting Last Admin: 07/18/24 21:28 Dose: 4 mg Documented By: KIARRA Oxycodone HCl (Oxycodone Hcl Immed Release 5 Mg Tablet) 10 mg PO Q6H PRN PRN Reason: Pain, Moderate(Pain Scale 4-6) Last Admin: 07/26/24 11:00 Dose: 10 mg Documented By: CRYSTAL Oxycodone HCl (Oxycodone Hcl Er 10 Mg Tab.Er.12h) 10 mg PO BID [facility] Polyethylene Glycol (Polyethylene Glycol 3350 17 Gm Powd.Pack) 17 gm PO DAILY [facility] Last Admin: 07/26/24 09:38 Dose: 17 gm Documented By: CRYSTAL Sodium Biphosphate/Sodium Phosphate (Sodium Phosphate,[place]-Dibasic 133 Ml Enema) 133 ml GA ONCE PRN PRN Reason: Constipation Last Admin: 07/25/24 18:05 Dose: 133 ml Documented By: CRYSTAL Sodium Chloride (0.9 % Sodium Chloride Flush 10 Ml Syringe) 5 ml IVFLUSH QSHIFT [facility] Last Admin: 07/26/24 09:36 Dose: 5 ml Documented By: CRYSTAL Labs 07/24/24 05:26 07/26/24 12:17 Labs: Laboratory Results - last 24 hr 07/26/24 12:17 Anion Gap 16 Estim Creat Clear Calc 102.8 Estimated GFR > 60 Random Glucose 165 H Calcium 10.0 Total Bilirubin 0.4 AST 199 H ALT 157 H Alkaline Phosphatase 446 H Total Protein 6.5 Albumin 3.3 L Assessment and Plan (1) Status post pneumonectomy: Status: Acute (2) Hyponatremia: Status: Acute Plan 59-year-old gentleman, recent 30+ pack-year smoker admitted on 06/14/2024 with hypoxia and multifocal pneumonia with abscesses. Patient has been treated with empiric antibiotics with essentially negative cultures. His bronchoscopic lavage also had essentially negative cultures. However, clinically his pulmonary abscess got worse an he had an attempted left lower lobectomy on 07/17/2024, however he required completion left pneumonectomy, now being monitored in the intensive care unit. Extubated 07/18/2024. Hypotension:thought to bePossibly secondary to hemodynamic changes post pneumonectomy improved -Off Levophed support since yesterday afternoon. continue midodrine 15mg q6h Hypoxia/lung abscess:s/p pneumonectomy on 07/18/2024,lung biopsy pending extubated on 07/19/2024, had episodes of flash pulmonary edema treated with lasix. decrease in oxygen requirement down to 4-6L/min negative pancultures,as per icu note:received levofloxacin for 19 days. incentive spirometry, mobilization, chest percussion therapy,taper oxygen Transaminitis:lft;s improving left lower rib cage pain with elevated lft's hepatitis A,B,C screen negative abd us:Cholelithiasis and biliary sludge with borderline wall thickening and mildly prominent common bile duct. d/w surgery -? acute cholecystis -add antibiotics ,mrcp moderate malnutrition: continue supplements dvt prophylax: s/c heaprin ongoing need: Status post pneumonectomy,-still requires oxygen, also has right- sided lung edema-on iv lasix ,lung biopsy pendin s/p pneumoectomy. Quality Stroke Does the patient have a stroke diagnosis?: No VTE Prior VTE?: No VTE Risk Level:: Medical - moderate - high VTE Device Contraindication: Treatment Not Indicated VTE Drug Contraindication: N/A - Med Ordered
[2024-07-26 16:00] VITALS: BP 122/64; PULSE 77; RESP 19; TEMP 36.4; O2SAT 90
[2024-07-26] MEDS: cefEPime HCl/D5W 2 GM/50 ML PIGGYBACK IV ×2 (16:04→23:19)
[2024-07-26] MEDS: metroNIDAZOLE/NS 500 MG/100 ML PIGGYBACK 100 MG IV (16:53)
[2024-07-26 19:08] VITALS: BP 120/65; PULSE 63; RESP 18; TEMP 36.5; O2SAT 93
[2024-07-26 23:52] VITALS: BP 134/73; PULSE 72; RESP 26; TEMP 36.2; O2SAT 95
[2024-07-27] MEDS: metroNIDAZOLE/NS 500 MG/100 ML PIGGYBACK 100 MG IV ×3 (00:04→16:42)
[2024-07-27 03:01] VITALS: BP 107/62; PULSE 62; RESP 20; TEMP 36.7; O2SAT 91
[2024-07-27] MEDS: Midodrine HCl 5 MG TABLET 15 MG PO ×4 (03:02→20:29)
[2024-07-27] MEDS: oxyCODONE HCl Immed Release 5 MG TABLET 10 MG PO ×2 (03:02→12:42)
[2024-07-27 06:00] VITALS: BMI 902.0
[2024-07-27 07:40] VITALS: BP 135/68; PULSE 67; RESP 20; TEMP 36.2; O2SAT 94
[2024-07-27] MEDS: Docusate Sodium 100 MG CAPSULE PO (08:42)
[2024-07-27] MEDS: oxyCODONE HCl ER 10 MG TAB.ER.12H PO ×2 (08:42→20:29)
[2024-07-27] MEDS: polyethylene glycoL 3350 17 GM POWD.PACK PO (08:44)
[2024-07-27] MEDS: Furosemide 40 MG/4 ML VIAL IVPUSH (08:45)
[2024-07-27] MEDS: Heparin Sodium,Porcine 5,000 UNIT/ML VIAL 5000 UNIT SUBCUT ×2 (08:45→20:30)
--- NOTE | 2024-07-27 08:45 | PM.PNGS ---
Subjective Subjective Date of Service: 07/27/24 Interval history: Complains of a lot of phlegm Has pain on the incisions in the left chest Denies abdominal pain NPO this morning because of an MRCP ordered by hospitalist service for abnormal LFTs No abdominal pain Physical Exam Vital Signs: Vital Signs: Last Vital Signs Temp 97.1 F 07/27/24 07:40 Pulse 67 07/27/24 07:40 Resp 20 07/27/24 07:40 BP 135/68 07/27/24 07:40 Pulse Ox 94 07/27/24 07:40 O2 Del Method Nasal Cannula 07/27/24 07:40 O2 Flow Rate 9 07/27/24 07:40 FiO2 40 07/19/24 15:56 BMI result Body Mass Index 902.0 Const: Other: Some shortness of breath Chest: Other: Dressings on the surgical site on the left dry Short of breath, as baseline Resp: Other: On O2 with nasal cannula Cardio: Rate: regular rate GI: Palpation (GI): Soft to palpation, not firm, nontender and no guarding Objective Data Active Medications Acetaminophen (Acetaminophen 325 Mg Tablet) 650 mg PO Q6H PRN PRN Reason: Pain, Moderate(Pain Scale 4-6) Docusate Sodium (Docusate Sodium 100 Mg Capsule) 100 mg PO BID [facility] Last Admin: 07/27/24 08:42 Dose: 100 mg Documented By: CELINE Furosemide (Furosemide 40 Mg/4 Ml Vial) 40 mg IVPUSH DAILY [facility]; Protocol Last Admin: 07/26/24 09:35 Dose: 40 mg Documented By: CRYSTAL Heparin Sodium (Porcine) (Heparin Sodium,Porcine 5,000 Unit/Ml Vial) 5,000 unit SUBCUT Q12H [facility] Last Admin: 07/26/24 21:00 Dose: 5,000 unit Documented By: CHERIE Metronidazole (Flagyl) 500 mg in 100 mls @ 100 mls/hr IV Q8H [facility] Last Infusion: 07/27/24 01:04 Dose: Infused Documented By: CHERIE Cefepime HCl (Maxipime) 2 gm in 50 mls @ 100 mls/hr IV Q8H [facility] Last Infusion: 07/26/24 23:49 Dose: Infused Documented By: CHERIE Midodrine (Midodrine Hcl 5 Mg Tablet) 15 mg PO Q6H [facility] Last Admin: 07/27/24 08:42 Dose: 15 mg Documented By: CELINE Ondansetron HCl (Ondansetron Hcl 4 Mg/2 Ml Vial) 4 mg IVPUSH Q8H PRN PRN Reason: Nausea and Vomiting Last Admin: 07/18/24 21:28 Dose: 4 mg Documented By: KIARRA Oxycodone HCl (Oxycodone Hcl Immed Release 5 Mg Tablet) 10 mg PO Q6H PRN PRN Reason: Pain, Moderate(Pain Scale 4-6) Last Admin: 07/27/24 03:02 Dose: 10 mg Documented By: CHERIE Oxycodone HCl (Oxycodone Hcl Er 10 Mg Tab.Er.12h) 10 mg PO BID [facility] Last Admin: 07/27/24 08:42 Dose: 10 mg Documented By: CELINE Polyethylene Glycol (Polyethylene Glycol 3350 17 Gm Powd.Pack) 17 gm PO DAILY [facility] Last Admin: 07/26/24 09:38 Dose: 17 gm Documented By: CRYSTAL Sodium Biphosphate/Sodium Phosphate (Sodium Phosphate,[place]-Dibasic 133 Ml Enema) 133 ml MO ONCE PRN PRN Reason: Constipation Last Admin: 07/25/24 18:05 Dose: 133 ml Documented By: CRYSTAL Sodium Chloride (0.9 % Sodium Chloride Flush 10 Ml Syringe) 5 ml IVFLUSH QSHIFT [facility] Last Admin: 07/27/24 01:18 Dose: Not Given Documented By: CHERIE Non-Admin Reason: IV Running Labs 07/24/24 05:26 07/26/24 12:17 Labs: Laboratory Results - last 24 hr 07/26/24 12:17 Anion Gap 16 Estim Creat Clear Calc 102.8 Estimated GFR > 60 Random Glucose 165 H Calcium 10.0 Total Bilirubin 0.4 AST 199 H ALT 157 H Alkaline Phosphatase 446 H Total Protein 6.5 Albumin 3.3 L Procedures Date of Service Date of Service: 07/27/24 Progress Note: A&P Assessment and plan (1) Abscess of lung with pneumonia: Status: Acute Assessment and Plan: Status post pneumonectomy on the left Shortness of breath as per baseline Requires O2 supplement via nasal cannula Surgical site dry MRCP ordered by the hospitalist service for abnormal LFTs - bilirubin however normal, transaminases elevated, likely parenchymal disease Stable from surgical standpoint Pain management Reviewed with nursing staff Time Spent With Patient Time: Total time managing care of this patient today ____ minutes. Quality Stroke Does the patient have a stroke diagnosis?: No VTE Prior VTE?: No VTE Risk Level:: Medical - moderate - high VTE Device Contraindication: Treatment Not Indicated VTE Drug Contraindication: N/A - Med Ordered
[2024-07-27] MEDS: cefEPime HCl/D5W 2 GM/50 ML PIGGYBACK IV ×2 (08:48→15:53)
[2024-07-27] MEDS: 0.9 % Sodium Chloride Flush 10 ML SYRINGE 5 ML IVFLUSH ×2 (08:53→15:59)
[2024-07-27 11:25] VITALS: BMI 18.4
[2024-07-27 11:40] VITALS: BP 110/66; PULSE 82; RESP 20; TEMP 37.1; O2SAT 94
--- NOTE | 2024-07-27 11:55 | P.PNIM_ITS ---
Subjective Subjective Date of Service: 07/27/24 Interval History: Has no abdominal pain, nausea or vomiting, feels hungry Physical Exam 2 Vital Signs: Vital Signs: Last Vital Signs Temp 98.7 F 07/27/24 11:40 Pulse 82 07/27/24 11:40 Resp 20 07/27/24 11:40 BP 110/66 07/27/24 11:40 Pulse Ox 94 07/27/24 11:40 O2 Del Method Nasal Cannula 07/27/24 11:40 O2 Flow Rate 9 07/27/24 11:40 FiO2 40 07/19/24 15:56 BMI result Body Mass Index 18.4 Appearance: Alert.? Oriented X3.? cvs: rrr, [id number]. res: air entry improving somewhat on right side , left side pneumonectmy. abd: soft , right lower rib cage pain, bs present. ext pulses present , no cyanosis. neuro: axo3 , nonfocal. Objective Data Active Medications Acetaminophen (Acetaminophen 325 Mg Tablet) 650 mg PO Q6H PRN PRN Reason: Pain, Moderate(Pain Scale 4-6) Docusate Sodium (Docusate Sodium 100 Mg Capsule) 100 mg PO BID [facility] Last Admin: 07/27/24 08:42 Dose: 100 mg Documented By: CELINE Furosemide (Furosemide 40 Mg/4 Ml Vial) 40 mg IVPUSH DAILY [facility]; Protocol Last Admin: 07/27/24 08:45 Dose: 40 mg Documented By: CELINE Heparin Sodium (Porcine) (Heparin Sodium,Porcine 5,000 Unit/Ml Vial) 5,000 unit SUBCUT Q12H [facility] Last Admin: 07/27/24 08:45 Dose: 5,000 unit Documented By: CELINE Metronidazole (Flagyl) 500 mg in 100 mls @ 100 mls/hr IV Q8H [facility] Last Infusion: 07/27/24 10:32 Dose: Infused Documented By: CELINE Cefepime HCl (Maxipime) 2 gm in 50 mls @ 100 mls/hr IV Q8H [facility] Last Infusion: 07/27/24 09:20 Dose: Infused Documented By: CELINE Midodrine (Midodrine Hcl 5 Mg Tablet) 15 mg PO Q6H [facility] Last Admin: 07/27/24 08:42 Dose: 15 mg Documented By: CELINE Ondansetron HCl (Ondansetron Hcl 4 Mg/2 Ml Vial) 4 mg IVPUSH Q8H PRN PRN Reason: Nausea and Vomiting Last Admin: 07/18/24 21:28 Dose: 4 mg Documented By: KIARRA Oxycodone HCl (Oxycodone Hcl Immed Release 5 Mg Tablet) 10 mg PO Q6H PRN PRN Reason: Pain, Moderate(Pain Scale 4-6) Last Admin: 07/27/24 03:02 Dose: 10 mg Documented By: CHERIE Oxycodone HCl (Oxycodone Hcl Er 10 Mg Tab.Er.12h) 10 mg PO BID [facility] Last Admin: 07/27/24 08:42 Dose: 10 mg Documented By: CELINE Polyethylene Glycol (Polyethylene Glycol 3350 17 Gm Powd.Pack) 17 gm PO DAILY [facility] Last Admin: 07/27/24 08:44 Dose: 17 gm Documented By: CELINE Sodium Biphosphate/Sodium Phosphate (Sodium Phosphate,[place]-Dibasic 133 Ml Enema) 133 ml AL ONCE PRN PRN Reason: Constipation Last Admin: 07/25/24 18:05 Dose: 133 ml Documented By: CRYSTAL Sodium Chloride (0.9 % Sodium Chloride Flush 10 Ml Syringe) 5 ml IVFLUSH QSHIFT [facility] Last Admin: 07/27/24 08:53 Dose: 5 ml Documented By: CELINE Labs 07/24/24 05:26 07/26/24 12:17 Labs: Laboratory Results - last 24 hr 07/26/24 12:17 Anion Gap 16 Estim Creat Clear Calc 102.8 Estimated GFR > 60 Random Glucose 165 H Calcium 10.0 Total Bilirubin 0.4 AST 199 H ALT 157 H Alkaline Phosphatase 446 H Total Protein 6.5 Albumin 3.3 L Assessment and Plan (1) Status post pneumonectomy: Status: Acute (2) Hyponatremia: Status: Acute Plan 59-year-old gentleman, recent 30+ pack-year smoker admitted on 06/14/2024 with hypoxia and multifocal pneumonia with abscesses. Patient has been treated with empiric antibiotics with essentially negative cultures. His bronchoscopic lavage also had essentially negative cultures. However, clinically his pulmonary abscess got worse an he had an attempted left lower lobectomy on 07/17/2024, however he required completion left pneumonectomy, now being monitored in the intensive care unit. Extubated 07/18/2024. Hypotension:thought to be Possibly secondary to hemodynamic changes post pneumonectomy, and temporaly required vasopressors. Continue Midodrine as needed for low BP Hypoxia/lung abscess:s/p pneumonectomy on 07/18/2024,lung biopsy result pending extubated on 07/19/2024, had episodes of flash pulmonary edema treated with lasix. decrease in oxygen requirement down to 4-6L/min negative pancultures,as per icu note:received levofloxacin for 19 days. incentive spirometry, mobilization, chest percussion therapy,taper oxygen Transaminitis:lft;s improving left lower rib cage pain with elevated lft's hepatitis A,B,C screen negative abd us:Cholelithiasis and biliary sludge with borderline wall thickening and mildly prominent common bile duct. d/w surgery -? acute cholecystis -add antibiotics ,mrcp pending.. GI follolwing moderate malnutrition: continue supplements dvt prophylax: s/c heaprin ongoing need: Status post pneumonectomy,-still requires oxygen, also has right- sided lung edema-on iv lasix ,lung biopsy pendin s/p pneumoectomy. Quality Stroke Does the patient have a stroke diagnosis?: No VTE Prior VTE?: No VTE Risk Level:: Medical - moderate - high VTE Device Contraindication: Treatment Not Indicated VTE Drug Contraindication: N/A - Med Ordered
--- NOTE | 2024-07-27 12:31 | MHC.CLN ---
F/U PT IS MODERATELY MALNOURISHED PREVIOUS PO INTAKE 50-100% CURRENTLY NPO PT WAS RECEIVING SUPPLEMENTS TO INCREASE KCALS ENSURE PROVIDES 700KCALS, 40G PROTEIN MAGIC CUP TID PROVIDES 870KCALS, 27G PROTEIN; 50% EST KCAL NEEDS NOW RECEPTIVE TO GELATEIN TID PER NSG PROVIDES 480KCALS, 60G PROTEIN PT IS ACCEPTING SUPPLEMENTS ABOVE WHEN DIET TO RESUME, PLEASE RE-START SUPPLEMENTS
[2024-07-27 16:00] VITALS: BP 116/60; PULSE 66; RESP 20; TEMP 36.7; O2SAT 96
[2024-07-27 19:20] VITALS: BP 116/68; PULSE 71; RESP 18; TEMP 37.2; O2SAT 92
[2024-07-27 23:57] VITALS: BP 119/69; PULSE 76; RESP 18; TEMP 37.1; O2SAT 92
[2024-07-28] VITALS (8 sets, daily range): BP systolic 93–135; BP diastolic 53–76; PULSE 64–87; RESP 15–24; TEMP 36.5–36.9; O2SAT 91–94; BMI 19.8
[2024-07-28] MEDS: oxyCODONE HCl Immed Release 5 MG TABLET 10 MG PO ×4 (00:17→22:39)
[2024-07-28] MEDS: cefEPime HCl/D5W 2 GM/50 ML PIGGYBACK IV ×4 (00:17→23:41)
[2024-07-28] MEDS: 0.9 % Sodium Chloride Flush 10 ML SYRINGE 5 ML IVFLUSH ×2 (01:04→08:38)
[2024-07-28] MEDS: metroNIDAZOLE/NS 500 MG/100 ML PIGGYBACK 100 MG IV ×4 (01:04→23:41)
[2024-07-28] MEDS: Benzonatate 100 MG CAPSULE PO ×3 (01:41→20:18)
[2024-07-28] MEDS: Midodrine HCl 5 MG TABLET 15 MG PO ×4 (03:53→20:19)
[2024-07-28] MEDS: Furosemide 40 MG/4 ML VIAL IVPUSH (08:46)
[2024-07-28] MEDS: Heparin Sodium,Porcine 5,000 UNIT/ML VIAL 5000 UNIT SUBCUT ×2 (08:46→20:19)
--- NOTE | 2024-07-28 09:06 | PM.PNGS ---
Subjective Subjective Date of Service: 07/28/24 Patient reports: still having pain and bowel movement Interval history: patient continues to endorse incisional site pain. Patient states he had difficulty sleeping due to the pain. He has been tolerating clear diet well post MRCP. He has been passing a few small stools and has been out of bed to the bathroom. Physical Exam Vital Signs: Vital Signs: Last Vital Signs Temp 98.5 F 07/28/24 07:46 Pulse 64 07/28/24 07:46 Resp 20 07/28/24 07:46 BP 100/66 07/28/24 07:46 Pulse Ox 94 07/28/24 07:46 O2 Del Method Nasal Cannula 07/28/24 07:46 O2 Flow Rate 10 07/28/24 07:46 FiO2 40 07/19/24 15:56 BMI result Body Mass Index 18.4 Const: General: cooperative Orientation/consciousness: patient oriented x3 Chest: Other: incision site is clear dry and intact. Dressings applied. Pain to palpation and with deep inhalation. Resp: Other: Patient on 8L o2 via NC. Short of breath at baseline. Effort & Inspection: able to speak in complete sentences GI: Palpation (GI): Soft to palpation, Tenderness to palpation present (GI) in the RUQ (mild), no guarding and No Rebound tenderness present Neuro: General: patient oriented x3 Objective Data Active Medications Acetaminophen (Acetaminophen 325 Mg Tablet) 650 mg PO Q6H PRN PRN Reason: Pain, Moderate(Pain Scale 4-6) Benzonatate (Benzonatate 100 Mg Capsule) 100 mg PO TID PRN PRN Reason: Cough Last Admin: 07/28/24 01:41 Dose: 100 mg Documented By: NABOR Docusate Sodium (Docusate Sodium 100 Mg Capsule) 100 mg PO BID [facility] Last Admin: 07/28/24 08:38 Dose: Not Given Documented By: CELINE Non-Admin Reason: Patient Refused Furosemide (Furosemide 40 Mg/4 Ml Vial) 40 mg IVPUSH DAILY [facility]; Protocol Last Admin: 07/28/24 08:46 Dose: 40 mg Documented By: CELINE Heparin Sodium (Porcine) (Heparin Sodium,Porcine 5,000 Unit/Ml Vial) 5,000 unit SUBCUT Q12H [facility] Last Admin: 07/28/24 08:46 Dose: 5,000 unit Documented By: CELINE Metronidazole (Flagyl) 500 mg in 100 mls @ 100 mls/hr IV Q8H [facility] Last Infusion: 07/28/24 02:37 Dose: Infused Documented By: NABOR Cefepime HCl (Maxipime) 2 gm in 50 mls @ 100 mls/hr IV Q8H [facility] Last Admin: 07/28/24 08:38 Dose: 100 mls/hr Documented By: CELINE Midodrine (Midodrine Hcl 5 Mg Tablet) 15 mg PO Q6H [facility] Last Admin: 07/28/24 08:45 Dose: 15 mg Documented By: CELINE Ondansetron HCl (Ondansetron Hcl 4 Mg/2 Ml Vial) 4 mg IVPUSH Q8H PRN PRN Reason: Nausea and Vomiting Last Admin: 07/18/24 21:28 Dose: 4 mg Documented By: KIARRA Oxycodone HCl (Oxycodone Hcl Immed Release 5 Mg Tablet) 10 mg PO Q6H PRN PRN Reason: Pain, Moderate(Pain Scale 4-6) Last Admin: 07/28/24 06:36 Dose: 10 mg Documented By: NABOR Oxycodone HCl (Oxycodone Hcl Er 10 Mg Tab.Er.12h) 10 mg PO BID [facility] Last Admin: 07/27/24 20:29 Dose: 10 mg Documented By: NABOR Polyethylene Glycol (Polyethylene Glycol 3350 17 Gm Powd.Pack) 17 gm PO DAILY [facility] Last Admin: 07/28/24 08:38 Dose: Not Given Documented By: CELINE Non-Admin Reason: Patient Refused Sodium Biphosphate/Sodium Phosphate (Sodium Phosphate,[place]-Dibasic 133 Ml Enema) 133 ml SC ONCE PRN PRN Reason: Constipation Last Admin: 07/25/24 18:05 Dose: 133 ml Documented By: CRYSTAL Sodium Chloride (0.9 % Sodium Chloride Flush 10 Ml Syringe) 5 ml IVFLUSH QSHIFT [facility] Last Admin: 07/28/24 08:38 Dose: 5 ml Documented By: CELINE Labs 07/24/24 05:26 07/26/24 12:17 Microbiology Microbiology Results: Microbiology 07/11/24 10:46 Fungal Identification - Preliminary Bronchial Washings No growth after 2 weeks. Procedures Date of Service Date of Service: 07/28/24 Progress Note: A&P Assessment and plan (1) Status post pneumonectomy: Status: Acute Plan 59-year-old male POD 8 following left pneumonectomy. Patient continues to experience incisonal site pain. Patient had MRCP on 07/27 for elevated liver enzymes. Findings are not suggestive of a billiary etiology causing the elevations in liver enzymes at this time. No surgical intervention is needed currently. CXR ordered due to increasing oxygen requirement and shortness of breath, results pending. Continue to recommend patient ambulate, chest PT and use incentive spirometry as tolerated. Goal to continue to decrease supplemental oxygen as tolerated after CXR results are interpreted. Patient okay to advance diet as tolerated. Time Spent With Patient Time: Total time managing care of this patient today ____ minutes. Quality Stroke Does the patient have a stroke diagnosis?: No VTE Prior VTE?: No VTE Risk Level:: Medical - moderate - high VTE Device Contraindication: Treatment Not Indicated VTE Drug Contraindication: N/A - Med Ordered
[2024-07-28] MEDS: oxyCODONE HCl ER 10 MG TAB.ER.12H PO ×2 (09:22→20:19)
--- NOTE | 2024-07-28 12:02 | P.PNIM_ITS ---
Subjective Subjective Date of Service: 07/28/24 Interval History: Has no abdominal pain, nausea or vomiting, feels hungry Physical Exam 2 Vital Signs: Vital Signs: Last Vital Signs Temp 97.7 F 07/28/24 11:46 Pulse 80 07/28/24 11:46 Resp 15 07/28/24 11:46 BP 93/61 07/28/24 11:46 Pulse Ox 94 07/28/24 11:46 O2 Del Method Nasal Cannula 07/28/24 11:46 O2 Flow Rate 8 07/28/24 11:46 FiO2 40 07/19/24 15:56 BMI result Body Mass Index 19.8 Appearance: Alert.? Oriented X3.? cvs: rrr, [id number]. res: air entry improving somewhat on right side , left side pneumonectmy. abd: soft , right lower rib cage pain, bs present. ext pulses present , no cyanosis. neuro: axo3 , nonfocal. Objective Data Active Medications Acetaminophen (Acetaminophen 325 Mg Tablet) 650 mg PO Q6H PRN PRN Reason: Pain, Moderate(Pain Scale 4-6) Benzonatate (Benzonatate 100 Mg Capsule) 100 mg PO TID PRN PRN Reason: Cough Last Admin: 07/28/24 01:41 Dose: 100 mg Documented By: NABOR Docusate Sodium (Docusate Sodium 100 Mg Capsule) 100 mg PO BID [facility] Last Admin: 07/28/24 08:38 Dose: Not Given Documented By: CELINE Non-Admin Reason: Patient Refused Furosemide (Furosemide 40 Mg/4 Ml Vial) 40 mg IVPUSH DAILY [facility]; Protocol Last Admin: 07/28/24 08:46 Dose: 40 mg Documented By: CELINE Heparin Sodium (Porcine) (Heparin Sodium,Porcine 5,000 Unit/Ml Vial) 5,000 unit SUBCUT Q12H [facility] Last Admin: 07/28/24 08:46 Dose: 5,000 unit Documented By: CELINE Metronidazole (Flagyl) 500 mg in 100 mls @ 100 mls/hr IV Q8H [facility] Last Infusion: 07/28/24 10:23 Dose: Infused Documented By: CELINE Cefepime HCl (Maxipime) 2 gm in 50 mls @ 100 mls/hr IV Q8H [facility] Last Infusion: 07/28/24 09:08 Dose: Infused Documented By: CELINE Midodrine (Midodrine Hcl 5 Mg Tablet) 15 mg PO Q6H [facility] Last Admin: 07/28/24 08:45 Dose: 15 mg Documented By: CELINE Ondansetron HCl (Ondansetron Hcl 4 Mg/2 Ml Vial) 4 mg IVPUSH Q8H PRN PRN Reason: Nausea and Vomiting Last Admin: 07/18/24 21:28 Dose: 4 mg Documented By: KIARRA Oxycodone HCl (Oxycodone Hcl Immed Release 5 Mg Tablet) 10 mg PO Q6H PRN PRN Reason: Pain, Moderate(Pain Scale 4-6) Last Admin: 07/28/24 06:36 Dose: 10 mg Documented By: NABOR Oxycodone HCl (Oxycodone Hcl Er 10 Mg Tab.Er.12h) 10 mg PO BID [facility] Last Admin: 07/28/24 09:22 Dose: 10 mg Documented By: SUNIL Polyethylene Glycol (Polyethylene Glycol 3350 17 Gm Powd.Pack) 17 gm PO DAILY [facility] Last Admin: 07/28/24 08:38 Dose: Not Given Documented By: CELINE Non-Admin Reason: Patient Refused Sodium Biphosphate/Sodium Phosphate (Sodium Phosphate,[place]-Dibasic 133 Ml Enema) 133 ml HI ONCE PRN PRN Reason: Constipation Last Admin: 07/25/24 18:05 Dose: 133 ml Documented By: CRYSTAL Sodium Chloride (0.9 % Sodium Chloride Flush 10 Ml Syringe) 5 ml IVFLUSH QSHIFT [facility] Last Admin: 07/28/24 08:38 Dose: 5 ml Documented By: CELINE Labs 07/24/24 05:26 07/26/24 12:17 Microbiology Microbiology Results: Microbiology 07/11/24 10:46 Fungal Identification - Preliminary Bronchial Washings No growth after 2 weeks. Assessment and Plan (1) Status post pneumonectomy: Status: Acute (2) Hyponatremia: Status: Acute Plan 59-year-old gentleman, recent 30+ pack-year smoker admitted on 06/14/2024 with hypoxia and multifocal pneumonia with abscesses. Patient has been treated with empiric antibiotics with essentially negative cultures. His bronchoscopic lavage also had essentially negative cultures. However, clinically his pulmonary abscess got worse an he had an attempted left lower lobectomy on 07/17/2024, however he required completion left pneumonectomy, now being monitored in the intensive care unit. Extubated 07/18/2024. Hypotension:thought to be Possibly secondary to hemodynamic changes post pneumonectomy, and temporaly required vasopressors. Continue Midodrine as needed for low BP Hypoxia/lung abscess:s/p pneumonectomy on 07/18/2024,lung biopsy result pending extubated on 07/19/2024, had episodes of flash pulmonary edema treated with lasix. decrease in oxygen requirement down to 4-6L/min negative pancultures,as per icu note:received levofloxacin for 19 days. incentive spirometry, mobilization, chest percussion therapy,taper oxygen Transaminitis:lft;s improving left lower rib cage pain with elevated lft's hepatitis A,B,C screen negative abd us:Cholelithiasis and biliary sludge with borderline wall thickening and mildly prominent common bile duct. d/w surgery -? acute cholecystis -add antibiotics GI follolwing. MRCP--Biliary sludge. 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 No gross choledocholithiasis. Multifocal pneumonia. 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 Advance diet moderate malnutrition: continue supplements dvt prophylax: s/c heaprin ongoing need: Status post pneumonectomy,-still requires oxygen, also has right- sided lung edema-on iv lasix ,lung biopsy pendin s/p pneumoectomy. Quality Stroke Does the patient have a stroke diagnosis?: No VTE Prior VTE?: No VTE Risk Level:: Medical - moderate - high VTE Device Contraindication: Treatment Not Indicated VTE Drug Contraindication: N/A - Med Ordered
--- NOTE | 2024-07-28 17:37 | HO.WOUND ---
Wound Consult: Initial 59yr old?male [place] [facility] [place] - See progress notes and H&P for detailed history.? Wound consult placed for coccyx wound.? Patient agreeable to assessment and photo documentation.? Coccyx Etiology: Deetp Tissue Injury Measurements: 2cm x 3cm x 0.2cm Wound Bed: pale wound bed with purple nonblanchable areas Drainage / Odor: none Edges: ? irregular Claudia wound: ?red pink blanchable tissue - No Induration, Fluctuance or Warmth noted Pain: painful to assessment Goals of Treatment: ? off load pressure and foam dressing to air in pressure redistribution Nutrition following with supplements in place. Recommendations: 1. Turn and Reposition every 2 hours and as needed for patient comfort.? Use pillows or wedges to support off loading positions. 2. Off Load all bony prominences with use of pillows and heel boots if needed.? Apply Preventative foams where needed. ? 3. Monitor for incontinence and moisture control, use barrier creams when needed for prevention and treatment. 4. Provide adequate and supplemental nutrition.? 5. Continue low air loss mattress. 6. When applicable maintain blood glucose levels per Providers order. Coccyx - Off Load Pressure with Q2 hr turns and use of pillows - Cleanse with PH balance spray or wipes, pat dry. ?Apply thin layer of Triad to wound bed. Do not remove all of paste between applications as this may cause further skin damage.? Cover with foam dressing to aid in off loading and protection from friction. Change every 5 days and PRN. Re-consult wound care Nurse for wound deterioration or wound changes.
[2024-07-28] MEDS: Docusate Sodium 100 MG CAPSULE PO (20:19)
[2024-07-29] VITALS (10 sets, daily range): BP systolic 100–123; BP diastolic 59–72; PULSE 74–98; RESP 18–22; TEMP 36.2–37.1; O2SAT 87–94; BMI 19.5
[2024-07-29] MEDS: Midodrine HCl 5 MG TABLET 15 MG PO ×4 (04:21→20:15)
[2024-07-29] MEDS: oxyCODONE HCl Immed Release 5 MG TABLET 10 MG PO ×3 (04:23→16:07)
[2024-07-29] MEDS: Benzonatate 100 MG CAPSULE PO (04:23)
[2024-07-29] MEDS: oxyCODONE HCl ER 10 MG TAB.ER.12H PO ×2 (09:42→20:16)
[2024-07-29] MEDS: Furosemide 40 MG/4 ML VIAL IVPUSH (09:42)
[2024-07-29] MEDS: Heparin Sodium,Porcine 5,000 UNIT/ML VIAL 5000 UNIT SUBCUT ×2 (09:42→20:17)
[2024-07-29] MEDS: Docusate Sodium 100 MG CAPSULE PO ×2 (09:42→20:15)
[2024-07-29] MEDS: cefEPime HCl/D5W 2 GM/50 ML PIGGYBACK IV ×3 (09:43→23:48)
[2024-07-29] MEDS: metroNIDAZOLE 500 MG TABLET PO ×2 (09:43→16:07)
[2024-07-29] MEDS: 0.9 % Sodium Chloride Flush 10 ML SYRINGE 5 ML IVFLUSH ×2 (09:43→16:10)
--- NOTE | 2024-07-29 11:30 | P.PNTS_ITS ---
Subjective Subjective Date of Service: 07/29/24 <Zenaida Meza PA-C - Last Filed: 07/29/24 11:35> 07/29/24 <Kuldeep Gee MD - Last Filed: 07/29/24 19:14> Interval history: Feels ok at rest but c/o shortness of breath with any activity and speaking. <Zenaida Meza PA-C - Last Filed: 07/29/24 11:35> Physical Exam Vital Signs: Vital Signs: Last Vital Signs Temp 98.2 F 07/29/24 07:37 Pulse 81 07/29/24 07:37 Resp 20 07/29/24 07:37 BP 123/60 07/29/24 09:43 Pulse Ox 90 L 07/29/24 07:37 O2 Del Method Nasal Cannula 07/29/24 07:37 O2 Flow Rate 7 07/29/24 07:37 FiO2 40 07/19/24 15:56 BMI result Body Mass Index 19.5 <Zenaida Meza PA-C - Last Filed: 07/29/24 11:35> Const: General: no acute distress and alert <Zenaida Meza PA-C - Last Filed: 07/29/24 11:35> Orientation/consciousness: patient oriented x3 <Zenaida Meza PA-C - Last Filed: 07/29/24 11:35> Chest: Other: left thoracotomy incision clean <Zenaida Meza PA-C - Last Filed: 07/29/24 11:35> Resp: Other: some increased work of breathing <Zenaida Meza PA-C - Last Filed: 07/29/24 11:35> Effort & Inspection: able to speak in complete sentences, not labored and t achypneic <Zenaida Meza PA-C - Last Filed: 07/29/24 11:35> Skin: General skin exam: no rashes or lesions noted <YEN Marks Last Filed: 07/29/24 11:35> Neuro: General: patient oriented x3 <YEN Marks Last Filed: 07/29/24 11:35> Procedures Date of Service Date of Service: 07/29/24 <Zenaida Meza PA-C - Last Filed: 07/29/24 11:35> 07/29/24 <Kuldeep Gee MD - Last Filed: 07/29/24 19:14> Progress Note: A&P Assessment and plan (1) Generalized weakness: Status: Acute <Zenaida Meza PA-C - Last Filed: 07/29/24 11:35> (2) Status post pneumonectomy: Status: Acute <Zenaida Meza PA-C - Last Filed: 07/29/24 11:35> Assessment and Plan: Continues with increasing supplemental O2 needs. CXR yesterday with increasing pneumonitis- unfortunately likely due to lymphovascular invasion. Can continue supportive measures of supplemental oxygen, nebulizers and diureses as needed, increasing activity/OOB as tolerated, nutritional support. <Zenaida Meza PA-C - Last Filed: 07/29/24 11:35> Time Spent With Patient Time: Total time managing care of this patient today ____ minutes. <Zenaida Meza PA-C - Last Filed: 07/29/24 11:35> Quality Stroke Does the patient have a stroke diagnosis?: No <Zenaida Meza PA-C - Last Filed: 07/29/24 11:35> VTE Prior VTE?: No <Zenaida Meza PA-C - Last Filed: 07/29/24 11:35> VTE Risk Level:: Medical - moderate - high <Zenaida Meza PA-C - Last Filed: 07/29/24 11:35> VTE Device Contraindication: Treatment Not Indicated <Zenaida Meza PA-C - Last Filed: 07/29/24 11:35> VTE Drug Contraindication: N/A - Med Ordered <Zenaida Meza PA-C - Last Filed: 07/29/24 11:35>
--- NOTE | 2024-07-29 13:43 | MHC.CLN ---
F/U PT IS MODERATELY MALNOURISHED PREVIOUS PO INTAKE 50-100% DIET RESUMED TO REGULAR RECOMMEND RE-STARTING SUPPLEMENTS PT ACCEPTS: ENSURE BID PROVIDES 700KCALS, 40G PROTEIN MAGIC CUP TID PROVIDES 870KCALS, 27G PROTEIN; 50% EST KCAL NEEDS GELATEIN TID PER NSG PROVIDES 480KCALS, 60G PROTEIN MONITOR PO INTAKE AND ENCOURAGE SUPPLEMENTS
--- NOTE | 2024-07-29 16:53 | P.PNIM_ITS ---
Subjective Subjective Date of Service: 07/29/24 Interval History: Offer no new complaints, remains on high amount of O2 but stable. Physical Exam 2 Vital Signs: Vital Signs: Last Vital Signs Temp 98.8 F 07/29/24 15:38 Pulse 80 07/29/24 15:54 Resp 18 07/29/24 15:54 BP 104/59 L 07/29/24 15:38 Pulse Ox 92 07/29/24 15:54 O2 Del Method Nasal Cannula 07/29/24 15:38 O2 Flow Rate 8 07/29/24 15:38 FiO2 40 07/19/24 15:56 BMI result Body Mass Index 19.5 Appearance: Alert.? Oriented X3.? cvs: rrr, [id number]. res: air entry improving somewhat on right side , left side pneumonectmy. abd: soft , right lower rib cage pain, bs present. ext pulses present , no cyanosis. neuro: axo3 , nonfocal. Objective Data Active Medications Acetaminophen (Acetaminophen 325 Mg Tablet) 650 mg PO Q6H PRN PRN Reason: Pain, Moderate(Pain Scale 4-6) Benzonatate (Benzonatate 100 Mg Capsule) 100 mg PO TID PRN PRN Reason: Cough Last Admin: 07/29/24 04:23 Dose: 100 mg Documented By: SYDNEY Docusate Sodium (Docusate Sodium 100 Mg Capsule) 100 mg PO BID [facility] Last Admin: 07/29/24 09:42 Dose: 100 mg Documented By: JOHN Furosemide (Furosemide 40 Mg/4 Ml Vial) 40 mg IVPUSH DAILY [facility]; Protocol Last Admin: 07/29/24 09:42 Dose: 40 mg Documented By: JOHN Heparin Sodium (Porcine) (Heparin Sodium,Porcine 5,000 Unit/Ml Vial) 5,000 unit SUBCUT Q12H [facility] Last Admin: 07/29/24 09:42 Dose: 5,000 unit Documented By: JOHN Cefepime HCl (Maxipime) 2 gm in 50 mls @ 100 mls/hr IV Q8H [facility] Last Admin: 07/29/24 16:10 Dose: 100 mls/hr Documented By: NACHO Metronidazole (Metronidazole 500 Mg Tablet) 500 mg PO Q8H [facility] Last Admin: 07/29/24 16:07 Dose: 500 mg Documented By: HO.WILLISK Midodrine (Midodrine Hcl 5 Mg Tablet) 15 mg PO Q6H [facility] Last Admin: 07/29/24 16:07 Dose: 15 mg Documented By: NACHO Ondansetron HCl (Ondansetron Hcl 4 Mg/2 Ml Vial) 4 mg IVPUSH Q8H PRN PRN Reason: Nausea and Vomiting Last Admin: 07/18/24 21:28 Dose: 4 mg Documented By: KIARRA Oxycodone HCl (Oxycodone Hcl Immed Release 5 Mg Tablet) 10 mg PO Q6H PRN PRN Reason: Pain, Moderate(Pain Scale 4-6) Last Admin: 07/29/24 16:07 Dose: 10 mg Documented By: NACHO Oxycodone HCl (Oxycodone Hcl Er 10 Mg Tab.Er.12h) 10 mg PO BID [facility] Last Admin: 07/29/24 09:42 Dose: 10 mg Documented By: JOHN Polyethylene Glycol (Polyethylene Glycol 3350 17 Gm Powd.Pack) 17 gm PO DAILY [facility] Last Admin: 07/29/24 09:57 Dose: Not Given Documented By: JOHN Non-Admin Reason: Patient Refused Sodium Biphosphate/Sodium Phosphate (Sodium Phosphate,[place]-Dibasic 133 Ml Enema) 133 ml ND ONCE PRN PRN Reason: Constipation Last Admin: 07/25/24 18:05 Dose: 133 ml Documented By: CRYSTAL Sodium Chloride (0.9 % Sodium Chloride Flush 10 Ml Syringe) 5 ml IVFLUSH QSHIFT [facility] Last Admin: 07/29/24 16:10 Dose: 5 ml Documented By: NACHO Labs 07/24/24 05:26 07/26/24 12:17 Assessment and Plan (1) Status post pneumonectomy: Status: Acute (2) Hyponatremia: Status: Acute Plan 59-year-old gentleman, recent 30+ pack-year smoker admitted on 06/14/2024 with hypoxia and multifocal pneumonia with abscesses. Patient has been treated with empiric antibiotics with essentially negative cultures. His bronchoscopic lavage also had essentially negative cultures. However, clinically his pulmonary abscess got worse an he had an attempted left lower lobectomy on 07/17/2024, however he required completion left pneumonectomy, now being monitored in the intensive care unit. Extubated 07/18/2024. Hypotension:thought to be Possibly secondary to hemodynamic changes post pneumonectomy, and temporaly required vasopressors. Continue Midodrine as needed for low BP Hypoxia/lung abscess:s/p pneumonectomy on 07/18/2024,lung biopsy result pending extubated on 07/19/2024, had episodes of flash pulmonary edema treated with lasix. decrease in oxygen requirement down to 4-6L/min negative pancultures,as per icu note:received levofloxacin for 19 days. incentive spirometry, mobilization, chest percussion therapy,taper oxygen Transaminitis:lft;s improving left lower rib cage pain with elevated lft's hepatitis A,B,C screen negative abd us:Cholelithiasis and biliary sludge with borderline wall thickening and mildly prominent common bile duct. d/w surgery -? acute cholecystis -add antibiotics GI follolwing. MRCP--Biliary sludge. 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 No gross choledocholithiasis. Multifocal pneumonia. 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 Advance diet moderate malnutrition: continue supplements dvt prophylax: s/c heaprin ongoing need: Status post pneumonectomy,-still requires oxygen, also has right- sided lung edema-on iv lasix ,lung biopsy pendin s/p pneumoectomy. Quality Stroke Does the patient have a stroke diagnosis?: No VTE Prior VTE?: No VTE Risk Level:: Medical - moderate - high VTE Device Contraindication: Treatment Not Indicated VTE Drug Contraindication: N/A - Med Ordered
--- NOTE | 2024-07-29 17:01 | PC.NURSE ---
pt repositioned to right side, for Q2H repositioning. After 1 hour pt repositioned self back to supine position with pillows underneath. Pt educated on importance of repositioning. Pt verbally understood. Pt currently refusing to be repositioned.
--- NOTE | 2024-07-29 18:21 | PC.NURSE ---
trevino catheter d/c'd at 1230 before pt transferred to med-surg. Pt due to void by 1830. Pt did not void and was bladder scanned at 1820. Bladder scan showed 142ml.
--- NOTE | 2024-07-29 23:59 | PC.NURSE ---
patient was able to void 50cc on his own around 2200 and bladder scan showed he had 184mL still in bladder. I encouraged patient to drink more water and will attempt to go for a walk to facilitate emptying of the bladder.
[2024-07-30] VITALS (14 sets, daily range): BP systolic 93–130; BP diastolic 55–73; PULSE 43–108; RESP 17–30; TEMP 35.8–36.9; O2SAT 90–96
[2024-07-30] MEDS: oxyCODONE HCl Immed Release 5 MG TABLET 10 MG PO ×4 (00:23→22:33)
[2024-07-30] MEDS: metroNIDAZOLE 500 MG TABLET PO ×3 (00:23→16:51)
[2024-07-30] MEDS: 0.9 % Sodium Chloride Flush 10 ML SYRINGE 5 ML IVFLUSH ×4 (00:25→20:18)
[2024-07-30] MEDS: Midodrine HCl 5 MG TABLET 15 MG PO ×4 (03:35→20:17)
--- NOTE | 2024-07-30 06:47 | PM.EVENT ---
Event Note Date of Service: 07/30/24 Event Note: Alerted by nursing staff that pt is hypoxic feeling very SOB. pt evaluated beside and is stable, able to speak in full sentences. R lung perez with crackles throughout, L lynda perez diminished. stat labs including CBC, BNP, BMP, ABG and CXR ordered. RT aware and at bedside, starting high-flow oxygen. will pass information to morning team. pt seen bedside with Dr Adorno who agrees with assessment and plan. Time Spent With Patient Time: Total time managing care of this patient today ____ minutes.
[2024-07-30] MEDS: Furosemide 40 MG/4 ML VIAL IVPUSH (06:51)
--- NOTE | 2024-07-30 06:59 | PC.NURSE ---
encouraged patient to get OOB this morning to walk to the bathroom, he made it to the toilet but he starting desatting down between 80-82% on 8L via garcia & even made it to 79% at some points and was very SOB, kept saying he couldn't breath and everything hurt. he was able to make it back to bed but O2 still the same with no improvements. Dr. Adorno and Respiratory notified. Both came to bedside and Tila said to put him on high flow & give IV push lasix early, also ABG's ordered . patient is now on 50L 65% and satting at 90% and patient states he feels his breathing is better.
[2024-07-30] MEDS: cefEPime HCl/D5W 2 GM/50 ML PIGGYBACK IV ×2 (08:07→16:09)
[2024-07-30] MEDS: Heparin Sodium,Porcine 5,000 UNIT/ML VIAL 5000 UNIT SUBCUT ×2 (08:08→20:17)
[2024-07-30] MEDS: oxyCODONE HCl ER 10 MG TAB.ER.12H PO ×2 (08:09→20:18)
[2024-07-30 09:14] LABS: MANUAL DIFF FLAG NO
[2024-07-30 09:22] LABS: Basophils Absolute Auto 0.2 X10*3/uL (0.0-0.2); Basophils Percent Auto 1.1 % (0-2); Eosinophils Absolute Auto 0.5 X10*3/uL (0.0-0.4); Eosinophils Percent Auto 3.3 % (0-4); Hematocrit 39.5 % (42.0-52.0); Hemoglobin 13.2 g/dl (14.0-18.0); Imm Gran Abs Auto 0.54 X10*3/uL (0.00-0.03); Imm Gran Pct Auto 3.7 % (0.0-0.4); Lymphocytes Absolute Auto 0.8 X10*3/uL (1.2-4.9); Lymphocytes Percent Auto 5.2 % (20-40); Mean Corpuscular HGB Conc 33.4 g/dl (31.0-36.0); Mean Corpuscular Hemoglobin 30.1 pg (27.0-33.0); Mean Corpuscular Volume 90.2 fL (80.0-98.0); Mean Platelet Volume 9.8 fL (9.4-12.4); Monocytes Absolute Auto 0.7 X10*3/uL (0.1-1.2); Neutrophils Percent Auto 81.7 % (45-73); Platelet Count 716 X10*3/uL (160-400); Red Blood Count 4.38 X10*6/uL (4.60-5.80); Red Cell Distribution Width 13.8 % (11.0-16.0); White Blood Count 14.7 X10*3/uL (4.8-10.8)
[2024-07-30 09:37] LABS: Blood Urea Nitrogen 21 mg/dL (9-16); Calcium 9.8 mg/dL (8.4-10.2); Creatinine Clr Calc Pharmacy 99.5; Estimated Glomerular Filt Rate > 60; Glucose Random 153 mg/dL (60-115)
[2024-07-30 09:47] LABS: B Type Natriuretic Peptide 111 pg/mL (<100)
[2024-07-30 09:53] LABS: Anion Gap 19 (12-20); Carbon Dioxide 30 mmol/L (22-29); Chloride 90 mmol/L (96-108); Potassium 2.9 mmol/L (3.3-5.1); Sodium 136 mmol/L (135-145)
--- NOTE | 2024-07-30 10:45 | P.PNIM_ITS ---
Subjective Subjective Date of Service: 07/30/24 Interval History: seen and evaluated this morning requiring more O2 supplement with worsening dytspnea; on High flow overnight increase anxiety no other overnight events Review of Systems Review of Systems: Yes all other systems are reviewed and are negative Physical Exam 2 Vital Signs: Vital Signs: Last Vital Signs Temp 97.6 F 07/30/24 07:51 Pulse 105 H 07/30/24 07:51 Resp 20 07/30/24 07:51 BP 112/68 07/30/24 07:51 Pulse Ox 93 07/30/24 07:51 O2 Del Method High Flow Nasal C annula 07/30/24 07:51 O2 Flow Rate 50 07/30/24 07:51 FiO2 66 07/30/24 07:51 BMI result Body Mass Index 19.5 Const: Other: Constitutional : Awake, interactive, in moderate respiratory distress Neck : Normal inspection, Supple Cardiovascular : RRR, no JVP, no lower extremity edema Respiratory : decrease bilateral air entry mainly on left side, right sided basal crackles, no significant wheezes Gastrointestinal: soft, lax, Normal bowel sounds, Non tender Skin : Warm, Dry Neurological : Alert & oriented x3, No focal deficit Objective Data Active Medications Acetaminophen (Acetaminophen 325 Mg Tablet) 650 mg PO Q6H PRN PRN Reason: Pain, Moderate(Pain Scale 4-6) Benzonatate (Benzonatate 100 Mg Capsule) 100 mg PO TID PRN PRN Reason: Cough Last Admin: 07/29/24 04:23 Dose: 100 mg Documented By: SYDNEY Docusate Sodium (Docusate Sodium 100 Mg Capsule) 100 mg PO BID [facility] Last Admin: 07/30/24 08:08 Dose: Not Given Documented By: KEMAR Non-Admin Reason: Patient Refused Furosemide (Furosemide 40 Mg/4 Ml Vial) 40 mg IVPUSH DAILY [facility]; Protocol Last Admin: 07/30/24 06:51 Dose: 40 mg Documented By: ROBERT Comments: per MD [place] to give early Guaifenesin (Guaifenesin La 600 Mg Tab.Er.12h) 600 mg PO BID CRISTINE Heparin Sodium (Porcine) (Heparin Sodium,Porcine 5,000 Unit/Ml Vial) 5,000 unit SUBCUT Q12H [facility] Last Admin: 07/30/24 08:08 Dose: 5,000 unit Documented By: KEMAR Hydroxyzine HCl (Hydroxyzine Hcl 25 Mg Tablet) 25 mg PO Q6H PRN PRN Reason: anxiety/restlessness Cefepime HCl (Maxipime) 2 gm in 50 mls @ 100 mls/hr IV Q8H [facility] Last Infusion: 07/30/24 08:45 Dose: Infused Documented By: KEMAR Metronidazole (Metronidazole 500 Mg Tablet) 500 mg PO Q8H [facility] Last Admin: 07/30/24 08:09 Dose: 500 mg Documented By: KEMAR Midodrine (Midodrine Hcl 5 Mg Tablet) 15 mg PO Q6H [facility] Last Admin: 07/30/24 08:09 Dose: 15 mg Documented By: KEMAR Ondansetron HCl (Ondansetron Hcl 4 Mg/2 Ml Vial) 4 mg IVPUSH Q8H PRN PRN Reason: Nausea and Vomiting Last Admin: 07/18/24 21:28 Dose: 4 mg Documented By: KIARRA Oxycodone HCl (Oxycodone Hcl Immed Release 5 Mg Tablet) 10 mg PO Q6H PRN PRN Reason: Pain, Moderate(Pain Scale 4-6) Last Admin: 07/30/24 00:23 Dose: 10 mg Documented By: ROBERT Oxycodone HCl (Oxycodone Hcl Er 10 Mg Tab.Er.12h) 10 mg PO BID [facility] Last Admin: 07/30/24 08:09 Dose: 10 mg Documented By: KEMAR Polyethylene Glycol (Polyethylene Glycol 3350 17 Gm Powd.Pack) 17 gm PO DAILY [facility] Last Admin: 07/30/24 08:09 Dose: Not Given Documented By: KEMAR Non-Admin Reason: Patient Refused Potassium Chloride (Potassium Chloride Packet 20 Meq Packet) 40 meq PO Q2H [facility] Stop: 07/30/24 12:01 Sodium Biphosphate/Sodium Phosphate (Sodium Phosphate,[place]-Dibasic 133 Ml Enema) 133 ml AL ONCE PRN PRN Reason: Constipation Last Admin: 07/25/24 18:05 Dose: 133 ml Documented By: CRYSTAL Sodium Chloride (0.9 % Sodium Chloride Flush 10 Ml Syringe) 5 ml IVFLUSH QSHIFT [facility] Last Admin: 07/30/24 08:08 Dose: 5 ml Documented By: KEMAR Labs 07/30/24 08:33 07/30/24 08:33 Labs: Laboratory Results - last 24 hr 07/30/24 08:33 MCV 90.2 MCH 30.1 MCHC 33.4 RDW 13.8 Plt Count 716 H D MPV 9.8 Immature Gran % (Auto) 3.7 H Neut % (Auto) 81.7 H Lymph % (Auto) 5.2 L [place] % (Auto) 5.0 Eos % (Auto) 3.3 Baso % (Auto) 1.1 Lymph # (Auto) 0.8 L [place] # (Auto) 0.7 Eos # (Auto) 0.5 H Baso # (Auto) 0.2 Abs Immat Gran (auto) 0.54 H Absolute Neuts (auto) 12.0 H Absolute Nucleated RBC 0.000 Nucleated RBC % (auto) 0.0 Anion Gap 19 Estim Creat Clear Calc 99.5 Estimated GFR > 60 Random Glucose 153 H Calcium 9.8 B-Natriuretic Peptide 111 H Assessment and Plan (1) Urinary retention: Status: Acute (2) Generalized weakness: Status: Acute (3) Status post pneumonectomy: Status: Acute (4) Hyponatremia: Status: Acute (5) Pneumonia: Status: Acute (6) 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 Patient has been treated with empiric antibiotics with essentially negative cultures. His bronchoscopic lavage also had essentially negative cultures. However, clinically his pulmonary abscess got worse an he had an attempted left lower lobectomy on 07/17/2024, however he required completion left pneumonectomy, now being monitored in the intensive care unit. Extubated 07/18/2024. 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 extubated on 07/19/2024, had episodes of flash pulmonary edema treated with lasix. decrease in oxygen requirement down to 4-6L/min repeat CXR showing worsening Right lung with effusion and likely metastatic diease? vascualr involvement ? lymphingitis ? Get Oncology evaluation incentive spirometry, mobilization, chest percussion therapy, taper oxygen down as tolerated Thoracic surgery input appreciated: CXR yesterday with increasing pneumonitis- unfortunately likely due to lymphovascular invasion acute hypokalemia give replacement fgollow BMP Transaminitis LFT improving left lower rib cage pain with elevated lft's abd us:Cholelithiasis and biliary sludge with borderline wall thickening and mildly prominent common bile duct. d/w surgery -? acute cholecystis -add antibiotics GI following as MRCP--Biliary sludge. 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 No gross choledocholithiasis. Multifocal pneumonia. 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 monitor Hypotension thought to be Possibly secondary to hemodynamic changes post pneumonectomy, and temporaly required vasopressors. Continue Midodrine as needed for low BP moderate malnutrition: continue supplements, encourage PO intake dvt prophylax s/c heaprin ongoing need: Status post pneumonectomy, still requires oxygen, also has right- sided lung edema-on iv lasix ,lung biopsy showing Adenocarcinoma s/p pneumoectomy pending Oncology eval Quality Stroke Does the patient have a stroke diagnosis?: No VTE Prior VTE?: No VTE Risk Level:: Medical - moderate - high VTE Device Contraindication: Treatment Not Indicated VTE Drug Contraindication: N/A - Med Ordered
[2024-07-30] MEDS: hydrOXYzine HCL 25 MG TABLET PO ×3 (11:06→22:34)
[2024-07-30] MEDS: Potassium Chloride Packet 20 MEQ PACKET 40 MEQ PO ×2 (11:06→11:37)
[2024-07-30] MEDS: guaiFENesin LA 600 MG TAB.ER.12H PO ×2 (11:06→20:17)
--- NOTE | 2024-07-30 11:12 | PM.HEMONCPN ---
Medical Summary - Medical Summary Date of Service: 07/30/24 Chief complaint: Cough and shortness of breath Primary Care Provider: None Physician Battery Technician Utilized?: No - Malay Speaking Interval History Interval history: Patient underwent left pneumonectomy on 07/17/2024. He got extubated on the , developed flash pulmonary edema and was treated with Lasix in the ICU. 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 Oncology consultation has been called. Review of Systems - Constitutional Reports as per HPI - Neurologic Reports no additional neurologic complaints, Denies focal weakness, Denies memory loss, Denies seizure-like activity [facility] Medical History: Medical History (Last Reviewed 07/24/24 @ 12:40 by Franky Roche MD) Acute respiratory disease Cough Wheezing on auscultation Family History: Family History (Last Reviewed 07/24/24 @ 12:40 by Franky Roche MD) Father Lung cancer Mother Unknown family medical history Family history: reviewed and not pertinent Social History: Social History (Last Reviewed 07/24/24 @ 12:40 by Franky Roche MD) Living Situation History: Household Members: Family Household Members Other:: mother and disabled brother Housing: Apartment Do you presently have visiting nurse or other home services: Yes Tobacco History: Patient Tobacco Use Status: Former Tobacco user Tobacco use type: Cigarette e-Cigarette/Vaping Use: Never Used Second Hand Smoke Exposure: No Occupation Assessmet: service: No Home Medications and Allergies Current Medications: Current Medications Acetaminophen (Acetaminophen 325 Mg Tablet) 650 mg PO Q6H PRN PRN Reason: Pain, Moderate(Pain Scale 4-6) Benzonatate (Benzonatate 100 Mg Capsule) 100 mg PO TID PRN PRN Reason: Cough Last Admin: 07/29/24 04:23 Dose: 100 mg Docusate Sodium (Docusate Sodium 100 Mg Capsule) 100 mg PO BID [facility] Last Admin: 07/30/24 08:08 Dose: Not Given Furosemide (Furosemide 40 Mg/4 Ml Vial) 40 mg IVPUSH DAILY [facility]; Protocol Last Admin: 07/30/24 06:51 Dose: 40 mg Guaifenesin (Guaifenesin La 600 Mg Tab.Er.12h) 600 mg PO BID [facility] Heparin Sodium (Porcine) (Heparin Sodium,Porcine 5,000 Unit/Ml Vial) 5,000 unit SUBCUT Q12H [facility] Last Admin: 07/30/24 08:08 Dose: 5,000 unit Hydroxyzine HCl (Hydroxyzine Hcl 25 Mg Tablet) 25 mg PO Q6H PRN PRN Reason: anxiety/restlessness Cefepime HCl (Maxipime) 2 gm in 50 mls @ 100 mls/hr IV Q8H [facility] Last Infusion: 07/30/24 08:45 Dose: Infused Metronidazole (Metronidazole 500 Mg Tablet) 500 mg PO Q8H [facility] Last Admin: 07/30/24 08:09 Dose: 500 mg Midodrine (Midodrine Hcl 5 Mg Tablet) 15 mg PO Q6H [facility] Last Admin: 07/30/24 08:09 Dose: 15 mg Ondansetron HCl (Ondansetron Hcl 4 Mg/2 Ml Vial) 4 mg IVPUSH Q8H PRN PRN Reason: Nausea and Vomiting Last Admin: 07/18/24 21:28 Dose: 4 mg Oxycodone HCl (Oxycodone Hcl Immed Release 5 Mg Tablet) 10 mg PO Q6H PRN PRN Reason: Pain, Moderate(Pain Scale 4-6) Last Admin: 07/30/24 00:23 Dose: 10 mg Oxycodone HCl (Oxycodone Hcl Er 10 Mg Tab.Er.12h) 10 mg PO BID [facility] Last Admin: 07/30/24 08:09 Dose: 10 mg Polyethylene Glycol (Polyethylene Glycol 3350 17 Gm Powd.Pack) 17 gm PO DAILY [facility] Last Admin: 07/30/24 08:09 Dose: Not Given Potassium Chloride (Potassium Chloride Packet 20 Meq Packet) 40 meq PO Q2H [facility] Stop: 07/30/24 12:01 Sodium Biphosphate/Sodium Phosphate (Sodium Phosphate,Sully-Dibasic 133 Ml Enema) 133 ml IA ONCE PRN PRN Reason: Constipation Last Admin: 07/25/24 18:05 Dose: 133 ml Sodium Chloride (0.9 % Sodium Chloride Flush 10 Ml Syringe) 5 ml IVFLUSH QSHIFT [facility] Last Admin: 07/30/24 08:08 Dose: 5 ml Home Medications ?Medication ?Instructions ?Recorded ?Confirmed ?Type albuterol sulfate 90 mcg/actuation 2 puff inhalation Q6H PRN 06/14/24 06/14/24 History aerosol inhaler shortness of breath or wheezing ibuprofen 400 mg tablet 400 mg PO Q8H PRN Pain 06/14/24 06/14/24 History Allergies Allergy/AdvReac Type Severity Reaction Status Date / Time amoxicillin Allergy Intermediate Rash Verified 07/17/24 06:35 penicillin G Allergy Intermediate Rash Verified 07/17/24 06:35 penicillin V Allergy Intermediate Rash Verified 07/17/24 06:35 Penicillins [PENICILLINS] Allergy Intermediate Rash Verified 07/17/24 06:35 tomato Allergy Intermediate Rash Verified 07/17/24 06:35 clindamycin Allergy Intermediate rash Uncoded 07/05/24 07:24 Exam Vital signs: Vital Signs Temp 97.6 F 07/30/24 07:51 Pulse 105 H 07/30/24 07:51 Resp 20 07/30/24 07:51 BP 112/68 07/30/24 07:51 Pulse Ox 93 07/30/24 07:51 O2 Del Method High Flow Nasal Cannula 07/30/24 07:51 O2 Flow Rate 50 07/30/24 07:51 FiO2 66 07/30/24 07:51 Intake & Output 07/29/24 07/30/24 07/30/24 18:59 06:59 18:59 Intake Total 1020 / 2110 1090 / 2110 50 / 50 Output Total 160 / 210 50 / 210 Balance 860 / 1900 1040 / 1900 50 / 50 Urine Output (Average ml/kg/hr) 0.22 0.07 0.07 Intake: Intake, Oral Amount 920 / 1960 1040 / 1960 Intake, IV Amount 100 / 150 50 / 150 50 / 50 cefEPime HCl/D5W 2 gm In 50 ml 100 / 150 50 / 150 50 / 50 @ 100 mls/hr IV Q8H [facility] Rx#: [id number] Output: Output, Urine Amount 50 / 50 Output, Urine Amount (Catheter) 160 / 160 Coude 160 / 160 Other: Meal Refused No NPO No Breakfast % Eaten 0% Lunch % Eaten 0% Dinner % Eaten 75% Eating (Feeding) Ability Independent Independent Number of Bowel Movements 1 Urine Color Yellow Last Bowel Movement 07/28/24 07/30/24 Stool Bathroom Stool Amount Small Stool Color Brown Stool Consistency Formed Weight 61.8 kg [place] Weight in Grams 05957 Weight 61.8 kg BMI result Body Mass Index 19.5 - Constitutional Present: no acute distress, thin - Routine HEENT Exam Head: Present: normal inspection - Routine Respiratory Exam Absent: accessory muscle use - Routine Cardiovascular Exam Cardiovascular: Present: S1, S2 - Routine Extremities Exam Absent: pedal edema - Routine Skin Exam Present: intact - Routine Neurological Exam Present: alert, oriented X3 - Detailed Neurological Exam: Coma Scale Eye Opening: Spontaneous (4) Data - Labs CBC & Chem 7: 07/30/24 08:33 07/30/24 08:33 Labs: Laboratory Last Values WBC 14.7 X10*3/uL (4.8-10.8) H 07/30/24 08:33 RBC 4.38 X10*6/uL (4.60-5.80) L 07/30/24 08:33 Hgb 13.2 g/dl (14.0-18.0) L 07/30/24 08:33 Hct 39.5 % (42.0-52.0) L 07/30/24 08:33 MCV 90.2 fL (80.0-98.0) 07/30/24 08:33 MCH 30.1 pg (27.0-33.0) 07/30/24 08:33 MCHC 33.4 g/dl (31.0-36.0) 07/30/24 08:33 RDW 13.8 % (11.0-16.0) 07/30/24 08:33 Plt Count 716 X10*3/uL (160-400) H D 07/30/24 08:33 MPV 9.8 fL (9.4-12.4) 07/30/24 08:33 Immature Gran % (Auto) 3.7 % (0.0-0.4) H 07/30/24 08:33 Neut % (Auto) 81.7 % (45-73) H 07/30/24 08:33 Lymph % (Auto) 5.2 % (20-40) L 07/30/24 08:33 Sully % (Auto) 5.0 % (2-11) 07/30/24 08:33 Eos % (Auto) 3.3 % (0-4) 07/30/24 08:33 Baso % (Auto) 1.1 % (0-2) 07/30/24 08:33 Lymph # (Auto) 0.8 X10*3/uL (1.2-4.9) L 07/30/24 08:33 Sully # (Auto) 0.7 X10*3/uL (0.1-1.2) 07/30/24 08:33 Eos # (Auto) 0.5 X10*3/uL (0.0-0.4) H 07/30/24 08:33 Baso # (Auto) 0.2 X10*3/uL (0.0-0.2) 07/30/24 08:33 Abs Immat Gran (auto) 0.54 X10*3/uL (0.00-0.03) H 07/30/24 08:33 Absolute Neuts (auto) 12.0 x10*3/uL (2.0-8.3) H 07/30/24 08:33 Absolute Nucleated RBC 0.000 X10*3/uL (0.0-0.012) 07/30/24 08:33 Nucleated RBC % (auto) 0.0 /100WBC (0.0-0.2) 07/30/24 08:33 Smear Tech's Comments VERIFIED 07/17/24 18:11 Smear Path Review SEE NOTE 06/14/24 11:04 ESR 78 MM/HR (0-15) H 07/20/24 13:11 Hold Purple Top SEE NOTE 07/25/24 06:00 O2 Saturation 100.0 % 07/22/24 04:30 ABG pH at Pt Temp 7.47 (7.35-7.45) H 07/22/24 04:30 ABG pCO2 at Pt Temp 50 mmHg (32-45) H 07/22/24 04:30 ABG pO2 at Pt Temp 101 mmHg (83-108) 07/22/24 04:30 ABG HCO3 37 mmol/L (22-26) H 07/22/24 04:30 ABG Base Excess (Actual) 12.2 mmol/L 07/22/24 04:30 VBG pH 7.31 (7.32-7.43) L 07/19/24 18:08 VBG pCO2 59 mmHg 07/19/24 18:08 VBG pO2 54 mmHg 07/19/24 18:08 VBG HCO3 30 mmol/L (22-26) H 07/19/24 18:08 VBG O2 Saturation 85.0 % 07/19/24 18:08 VBG Base Excess 2.7 mmol/L 07/19/24 18:08 Sodium 136 mmol/L (135-145) 07/30/24 08:33 Potassium 2.9 mmol/L (3.3-5.1) L* 07/30/24 08:33 Chloride 90 mmol/L (96-108) L 07/30/24 08:33 Carbon Dioxide 30 mmol/L (22-29) H 07/30/24 08:33 Anion Gap 19 (12-20) 07/30/24 08:33 BUN 21 mg/dL (9-16) H 07/30/24 08:33 Creatinine 0.69 mg/dL (0.5-1.4) 07/30/24 08:33 Estim Creat Clear Calc 99.5 07/30/24 08:33 Estimated GFR > 60 07/30/24 08:33 POC Glucose 117 mg/dL (60-115) H 07/24/24 17:30 Random Glucose 153 mg/dL (60-115) H 07/30/24 08:33 Fasting Glucose 122 mg/dL (60-99) H 07/07/24 05:57 Osmolality 260 mosm/kg (281-305) L 06/29/24 05:09 Lactic Acid 1.1 mmol/L (0.5-2.0) 06/14/24 11:04 Calcium 9.8 mg/dL (8.4-10.2) 07/30/24 08:33 Phosphorus 5.0 mg/dL (2.7-4.5) H 07/24/24 05:26 Magnesium 2.1 mg/dL (1.6-2.6) 07/24/24 05:26 Erythropoietin 4.3 mIU/mL (2.6-18.5) 06/19/24 14:12 Total Bilirubin 0.4 mg/dL (0.0-1.0) 07/26/24 12:17 Direct Bilirubin 0.3 mg/dL (0.0-0.5) 06/14/24 11:04 AST 199 U/L (5-37) H 07/26/24 12:17 ALT 157 U/L (0-40) H 07/26/24 12:17 Alkaline Phosphatase 446 U/L (39-117) H 07/26/24 12:17 Troponin I High Sens 4.7 ng/L (<3.5-35.0) 06/14/24 11:04 C-Reactive Protein 46.70 mg/dL (< or = 0.50) H 07/20/24 13:11 B-Natriuretic Peptide 111 pg/mL (<100) H 07/30/24 08:33 Total Protein 6.5 g/dL (6.5-8.0) 07/26/24 12:17 Albumin 3.3 g/dL (3.5-5.0) L 07/26/24 12:17 Procalcitonin 0.13 ng/mL 06/26/24 05:56 TSH 4.05 uIU/mL (0.32-4.0) H 06/30/24 05:34 Free T4 1.28 ng/dL (0.71-1.85) 06/30/24 05:34 Random Cortisol 20.8 ug/dL 06/30/24 05:34 Urine Color Yellow 06/15/24 07:14 Urine Appearance Clear 06/15/24 07:14 Urine pH 5.5 (5.0-9.0) 06/15/24 07:14 Ur Specific Hancock >= 1.030 (1.005-1.025) H 06/15/24 07:14 Urine Protein Negative mg/dL (Neg-Trace) 06/15/24 07:14 Urine Glucose (UA) Negative mg/dL (Negative) 06/15/24 07:14 Urine Ketones Negative mg/dL (Negative) 06/15/24 07:14 Urine Blood Negative (Negative) 06/15/24 07:14 Urine Nitrite Negative (Negative) 06/15/24 07:14 Ur Leukocyte Esterase Negative (Negative) 06/15/24 07:14 Ur Random Sodium < 20.0 mmol/L 06/29/24 15:15 Urine Creatinine 93.68 mg/dL 06/29/24 15:15 Nasal Screen MRSA (PCR) NEGATIVE (Negative) 06/17/24 07:20 Nasal S. aureus Screen NEGATIVE (Negative) 06/17/24 07:20 Nasal MRSA/S.aureus Interp SEE NOTE 06/17/24 07:20 Stl C. cayetanensis PCR Not Detected (Not Detect.) 07/05/24 07:22 Stool Rotavirus A PCR Not Detected (Not Detect.) 07/05/24 07:22 Stl Adenov F 40/41 PCR Not Detected (Not Detect.) 07/05/24 07:22 Stool Astrovirus (PCR) Not Detected (Not Detect.) 07/05/24 07:22 Stool Campylobacter PCR Not Detected (Not Detect.) 07/05/24 07:22 Stool Cryptosporidium PCR Not Detected (Not Detect.) 07/05/24 07:22 Stl Sh Tox Pr E STEC PCR Not Detected (Not Detect.) 07/05/24 07:22 Stool E coli O157 PCR Not applicable (Not Detect.) 07/05/24 07:22 Stl Enterotoxigenic E PCR Not Detected (Not Detect.) 07/05/24 07:22 Stool EPEC (PCR) Not Detected (Not Detect.) 07/05/24 07:22 Stool EAEC (PCR) Not Detected (Not Detect.) 07/05/24 07:22 Stl E. histolytica PCR Not Detected (Not Detect.) 07/05/24 07:22 Stool Giardia Lamblia PCR Not Detected (Not Detect.) 07/05/24 07:22 Stl P. shigelloides PCR Not Detected (Not Detect.) 07/05/24 07:22 Stool Salmonella PCR Not Detected (Not Detect.) 07/05/24 07:22 Stool Sapovirus (PCR) Not Detected (Not Detect.) 07/05/24 07:22 Stl Shigella/EIEC PCR Not Detected (Not Detect.) 07/05/24 07:22 St Y.enterocolitica PCR Not Detected (Not Detect.) 07/05/24 07:22 Stool Vibrio (PCR) Not Detected (Not Detect.) 07/05/24 07:22 Stl Vibrio cholerae PCR Not Detected (Not Detect.) 07/05/24 07:22 Stl Norovirus GI/GII PCR Not Detected (Not Detect.) 07/05/24 07:22 Random Vancomycin 14.8 mcg/mL (15-20) L 06/17/24 14:57 Rheumatoid Factor < 13.0 IU/mL (<15.0) 07/20/24 13:11 Proteinase 3 (PR3) Ab <1.0 AI 07/20/24 13:11 Myeloperoxidase Ab <1.0 AI 07/20/24 13:11 Respiratory Panel [place] See Note 07/14/24 14:00 Adenovirus (Rapid PCR) Not Detected (Not Detect.) 07/14/24 14:00 B.pert (TEM-PCR) Not Detected (Not Detect.) 07/14/24 14:00 B.parapertussis DNA PCR Not Detected (Not Detect.) 07/14/24 14:00 C. pneumoniae DNA (PCR) Not Detected (Not Detect.) 07/14/24 14:00 C. difficile Tox B Gene NEGATIVE (Negative) 07/05/24 07:22 Coronavirus OC43 (PCR) Not Detected (Not Detect.) 07/14/24 14:00 Coronavirus HKU1 (PCR) Not Detected (Not Detect.) 07/14/24 14:00 Coronavirus 229E (PCR) Not Detected (Not Detect.) 07/14/24 14:00 Coronavirus NL63 (PCR) Not Detected (Not Detect.) 07/14/24 14:00 Hepatitis A IgM Ab Nonreactive (Nonreactive) 06/15/24 06:00 Hep Bs Antigen Negative (Negative) 06/15/24 06:00 Hep Bs Antibody NONREACTIVE (Nonreactive) 06/15/24 06:00 Hep B Core Total Ab Nonreactive (Nonreactive) 06/15/24 06:00 Hepatitis C Ab (EIA) Nonreactive (Nonreactive) 06/15/24 06:00 HIV 1&2 Ab/P24 Ag 4thGn Nonreactive (Nonreactive) 06/15/24 06:00 Human Metapneumovir PCR Not Detected (Not Detect.) 07/14/24 14:00 Influenza A (RT-PCR) Not Detected (Not Detect.) 07/14/24 14:00 Influenza A (H1) PCR Not Detected (Not Detect.) 07/14/24 14:00 Influ A (H1/09) PCR Not Detected (Not Detect.) 07/14/24 14:00 Influenza A (H3) PCR Not Detected (Not Detect.) 07/14/24 14:00 Influenza Type A (PCR) NEGATIVE (Negative) 06/14/24 11:20 Influenza B (RT-PCR) Not Detected (Not Detect.) 07/14/24 14:00 Influenza Type B (PCR) NEGATIVE (Negative) 06/14/24 11:20 Ur L.pneumophila Ag Not Detected (Not Detected) 06/17/24 11:06 M.tuberculosis DNA (PCR) NOT DETECTED (NOT DETECTED) 06/16/24 10:25 MTB Rifampin Resis PCR NOT TESTED (NOT DETECTED) 06/16/24 10:25 M. pneumoniae (PCR) Not Detected (Not Detect.) 07/14/24 14:00 Parainfluenza 1 (PCR) Not Detected (Not Detect.) 07/14/24 14:00 Parainfluenza 2 (PCR) Not Detected (Not Detect.) 07/14/24 14:00 Parainfluenza 3 (PCR) Not Detected (Not Detect.) 07/14/24 14:00 Parainfluenza 4 (PCR) Not Detected (Not Detect.) 07/14/24 14:00 RSV (PCR) Not Detected (Not Detect.) 07/14/24 14:00 RSV RNA Qual (PCR) NEGATIVE (Negative) 06/14/24 11:20 Entero/Rhino (PCR) Not Detected (Not Detect.) 07/14/24 14:00 SARS-CoV-2 RNA (RT-PCR) Not Detected (Not Detect.) 07/14/24 14:00 TB Test (T-Spot) Com Negative (Negative) 06/16/24 10:18 TB Test Nil Control Passed 06/16/24 10:18 TB Test Panel A 0 06/16/24 10:18 TB Test Panel B 0 06/16/24 10:18 TB Test Positive Cntrl Passed 06/16/24 10:18 Beta-(1,3)-D-Glucan <31 pg/mL (<60) 07/20/24 13:11 B-(1,3)-D-Glucan Intrp Negative 07/20/24 13:11 Blood Type O Positive 07/16/24 13:14 Antibody Screen NEGATIVE 07/16/24 13:14 Crossmatch See Detail 07/16/24 13:14 Pre Ther Phlebot Hgb TNP 06/23/24 09:00 Pre Ther Phlebot Hct TNP 06/23/24 09:00 Therapeutic Phlebotomy Phlebotomy Performed 06/23/24 09:00 - Imaging Radiologist's impression: ITS Impressions Chest X-Ray 07/03/24 12:32 IMPRESSION: 1. Extensive parenchymal opacification left greater than right lungs with underlying COPD. Compared with the recent chest CT, there has been mild improvement in the right upper lung region but otherwise no change. (Given the appearance on the recent chest CT, bilateral lung abscesses are suspected). 2. No pneumothorax. 3. Probable small right effusion. No definite left effusion. Electronically signed by: Carlos Moya MD 07/03/2024 01:00 PM EDT RP Chest X-Ray 07/15/24 10:57 IMPRESSION: Extensive airspace opacity in the right mid to lower lung zone and involving the entire left lung as seen previously, compatible with pneumonia. There are air/fluid levels in the left lower lobe as noted on chest CT, compatible with abscess formation. Electronically signed by: Hero Zavala MD 07/15/2024 11:42 AM EDT RP Chest X-Ray 07/17/24 10:50 IMPRESSION: 1. Endotracheal tube in good position, with second luminal tube extending into the left mainstem bronchus. 2. Left-sided chest tube in the left apex. 3. Left pneumonectomy with gas throughout the left thoracic cavity. Mild left mediastinal shift. 4. Opacity throughout the aerated right lung, minimally less confluent than on the prior radiograph. Above findings communicated to Dr. Gee directly via phone call at 11:24 AM, 07/17/2024. Electronically signed by: Carlos Moya MD 07/17/2024 11:26 AM EDT RP Chest X-Ray 07/20/24 16:18 IMPRESSION: No significant interval change since earlier same day at 6:04 AM. Electronically signed by: Carlos Moya MD 07/20/2024 04:50 PM EDT RP Chest X-Ray 07/22/24 07:15 IMPRESSION: Atelectatic/collapsed left lung with stable hydropneumothorax, left side. Pulmonary edema versus ARDS versus multifocal pneumonia versus pneumonitis, right lung. Overall no gross change. Electronically signed by: Candelario Patel MD 07/22/2024 08:01 AM EDT RP Abdomen Ultrasound 07/24/24 09:21 IMPRESSION: Cholelithiasis and biliary sludge with borderline wall thickening and mildly prominent common bile duct. 1.1 cm Bosniak type I cyst, right kidney. Electronically signed by: Candelario Patel MD 07/24/2024 09:47 AM EDT RP Cholangiopancreatography MRI 07/27/24 12:01 IMPRESSION: Biliary sludge. 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 No gross choledocholithiasis. Multifocal pneumonia. 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 Electronically signed by: Candelario Patel MD 07/28/2024 08:05 AM EDT RP Chest X-Ray 07/28/24 09:45 IMPRESSION: 1. Slightly more confluent airspace disease throughout the hyperaerated right lung. Electronically signed by: Carlos Moya MD 07/28/2024 10:48 AM EDT RP Chest X-Ray 07/30/24 07:15 IMPRESSION: 1. Slightly less pneumatization in the left superior thorax, expected postoperative evolution. 2. Stable appearing diffuse pneumonitis throughout the right lung most confluent mid and lower region. Electronically signed by: Carlos Moya MD 07/30/2024 08:15 AM EDT RP Assessment and Plan Patient Active problem list reviewed?: Yes (1) Adenocarcinoma, lung Status: Acute Assessment and plan: 1. This is a 59-year-old male, 30+ pack-year smoking history was admitted on 06/14/2024 with hypoxia and multifocal pneumonia with abscess. After prolonged course of antibiotics, he underwent an attempted left lower lobectomy on 07/17/2024 which was converted to left pneumonectomy. 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 Positive soft tissue margin. One hilar lymph node positive for adenocarcinoma. Tumor size 16 cm, numerous multiple tumor nodules in both lobes. Parenchyma margin, tumor widely present at soft tissue margin in the lower lobe. Pathological stage pT4 (M) pN1 with positive margin. He will need completion staging after discharge with PET-CT and brain scan. If he does not have metastatic disease, he would be a candidate for adjuvant chemotherapy as well as possibly adjuvant radiation therapy because of positive margin. At this time he is rather frail and malnourished. He is on high-flow oxygen. Explained to patient that further treatment of his cancer will depend on his performance status and staging evaluation after discharge. I thank you for the consultation. - Time Spent With Patient Time Spent with Patient (in minutes): 20 Additional Coding: - Additional E/M codes Complex E/M visit Add On: CPT G2211
[2024-07-30 12:29] LABS: Appearance Urine Clear; Color Urine Dark Yellow; Glucose Urine UA Negative (Negative); Leukocyte Esterase Urine Trace (Negative); Nitrite Urine Positive (Negative); UMIC TRIGGER UACC YES; Urine Blood Negative (Negative); Urine Ketones Trace mg/dL (Negative); Urine Protein 30 (1+) mg/dL (Neg-Trace)
[2024-07-30 12:43] LABS: Bacteria Urine Trace (None Seen); Hyaline Casts Urine 0-2 /LPF (0-2); RBC Urine 0-2 /HPF (0-2); Squamous Epithelial Cell Urine 0-2 /HPF (0-2); UACC Culture Trigger YES; WBC Urine 0-5 /HPF (0-5)
[2024-07-30] MEDS: Docusate Sodium 100 MG CAPSULE PO (20:18)
[2024-07-30] MEDS: Acetaminophen 325 MG TABLET 650 MG PO (22:33)
[2024-07-31] VITALS (13 sets, daily range): BP systolic 102–126; BP diastolic 62–76; PULSE 59–96; RESP 16–20; TEMP 36.2–37.2; O2SAT 91–98
[2024-07-31] MEDS: cefEPime HCl/D5W 2 GM/50 ML PIGGYBACK IV ×3 (00:06→16:40)
[2024-07-31] MEDS: metroNIDAZOLE 500 MG TABLET PO ×3 (02:56→16:40)
[2024-07-31] MEDS: Midodrine HCl 5 MG TABLET 15 MG PO ×4 (02:56→20:49)
[2024-07-31] MEDS: oxyCODONE HCl Immed Release 5 MG TABLET 10 MG PO ×3 (04:40→16:40)
[2024-07-31] MEDS: Acetaminophen 325 MG TABLET 650 MG PO ×2 (04:41→15:50)
[2024-07-31 07:00] LABS: MANUAL DIFF FLAG NO
[2024-07-31 07:17] LABS: Basophils Absolute Auto 0.2 X10*3/uL (0.0-0.2); Basophils Percent Auto 1.1 % (0-2); Eosinophils Absolute Auto 0.9 X10*3/uL (0.0-0.4); Eosinophils Percent Auto 6.2 % (0-4); Hematocrit 40.2 % (42.0-52.0); Imm Gran Abs Auto 0.39 X10*3/uL (0.00-0.03); Imm Gran Pct Auto 2.6 % (0.0-0.4); Lymphocytes Absolute Auto 1.2 X10*3/uL (1.2-4.9); Lymphocytes Percent Auto 7.9 % (20-40); Mean Corpuscular HGB Conc 32.3 g/dl (31.0-36.0); Mean Corpuscular Hemoglobin 29.7 pg (27.0-33.0); Mean Platelet Volume 9.6 fL (9.4-12.4); Monocytes Absolute Auto 1.2 X10*3/uL (0.1-1.2); Monocytes Percent Auto 7.9 % (2-11); Neutrophils Absolute Auto 11.3 x10*3/uL (2.0-8.3); Neutrophils Percent Auto 74.3 % (45-73); Platelet Count 719 X10*3/uL (160-400); Red Blood Count 4.37 X10*6/uL (4.60-5.80); Red Cell Distribution Width 13.5 % (11.0-16.0); White Blood Count 15.1 X10*3/uL (4.8-10.8)
[2024-07-31 07:37] LABS: Alanine Aminotransferase 29 U/L (0-40); Albumin Level 3.4 g/dL (3.5-5.0); Alkaline Phosphatase 184 U/L (39-117); Anion Gap 16 (12-20); Aspartate Amino Transferase 31 U/L (5-37); Bilirubin Direct 0.2 mg/dL (0.0-0.5); Bilirubin Total 0.4 mg/dL (0.0-1.0); Blood Urea Nitrogen 21 mg/dL (9-16); Calcium 9.8 mg/dL (8.4-10.2); Carbon Dioxide 33 mmol/L (22-29); Chloride 90 mmol/L (96-108); Creatinine Clr Calc Pharmacy 107.2; Estimated Glomerular Filt Rate > 60; Glucose Random 106 mg/dL (60-115); Potassium 3.5 mmol/L (3.3-5.1); Sodium 135 mmol/L (135-145); Total Protein 6.6 g/dL (6.5-8.0)
[2024-07-31] MEDS: Furosemide 40 MG/4 ML VIAL IVPUSH (08:29)
[2024-07-31] MEDS: Heparin Sodium,Porcine 5,000 UNIT/ML VIAL 5000 UNIT SUBCUT ×2 (08:29→20:48)
[2024-07-31] MEDS: 0.9 % Sodium Chloride Flush 10 ML SYRINGE 5 ML IVFLUSH ×2 (08:31→16:41)
[2024-07-31] MEDS: oxyCODONE HCl ER 10 MG TAB.ER.12H PO ×2 (08:31→20:47)
[2024-07-31] MEDS: guaiFENesin LA 600 MG TAB.ER.12H PO ×2 (08:31→20:47)
--- NOTE | 2024-07-31 09:25 | HO.PM.IMPN ---
Subjective Subjective Date of Service: 07/31/24 Interval History: seen and evaluated this morning Still on high flow with some with some difficulty breathing but says better than yesterday Pretty anxious Review of Systems Review of Systems: Yes all other systems are reviewed and are negative Physical Exam Vital Signs: Vital Signs: Last Vital Signs Temp 97.7 F 07/31/24 07:13 Pulse 70 07/31/24 07:13 Resp 15 07/31/24 07:28 BP 106/66 07/31/24 07:13 Pulse Ox 93 07/31/24 07:13 O2 Del Method Room Air 07/31/24 07:23 O2 Flow Rate 40 07/31/24 07:13 FiO2 50 07/31/24 07:13 BMI result Body Mass Index 19.5 Const: Other: Constitutional : Awake, interactive, in moderate respiratory distress Neck : Normal inspection, Supple Cardiovascular : RRR, no JVP, no lower extremity edema Respiratory : decrease bilateral air entry mainly on left side, right sided basal crackles, no significant wheezes Gastrointestinal: soft, lax, Normal bowel sounds, Non tender Skin : Warm, Dry Neurological : Alert & oriented x3, No focal deficit Objective Data Active Medications Acetaminophen (Acetaminophen 325 Mg Tablet) 650 mg PO Q6H PRN PRN Reason: Pain, Moderate(Pain Scale 4-6) Last Admin: 07/31/24 04:41 Dose: 650 mg Documented By: ANTOINC Benzonatate (Benzonatate 100 Mg Capsule) 100 mg PO TID PRN PRN Reason: Cough Last Admin: 07/29/24 04:23 Dose: 100 mg Documented By: SYDNEY Docusate Sodium (Docusate Sodium 100 Mg Capsule) 100 mg PO BID [facility] Last Admin: 07/31/24 08:30 Dose: Not Given Documented By: DAREK Non-Admin Reason: Patient Refused Furosemide (Furosemide 40 Mg/4 Ml Vial) 40 mg IVPUSH DAILY [facility]; Protocol Last Admin: 07/31/24 08:29 Dose: 40 mg Documented By: DAREK Guaifenesin (Guaifenesin La 600 Mg Tab.Er.12h) 600 mg PO BID [facility] Last Admin: 07/31/24 08:31 Dose: 600 mg Documented By: DAREK Heparin Sodium (Porcine) (Heparin Sodium,Porcine 5,000 Unit/Ml Vial) 5,000 unit SUBCUT Q12H [facility] Last Admin: 07/31/24 08:29 Dose: 5,000 unit Documented By: DAREK Hydroxyzine HCl (Hydroxyzine Hcl 25 Mg Tablet) 25 mg PO Q6H PRN PRN Reason: anxiety/restlessness Last Admin: 07/30/24 22:34 Dose: 25 mg Documented By: LEXY Cefepime HCl (Maxipime) 2 gm in 50 mls @ 100 mls/hr IV Q8H [facility] Last Infusion: 07/31/24 09:02 Dose: Infused Documented By: DAREK Metronidazole (Metronidazole 500 Mg Tablet) 500 mg PO Q8H [facility] Last Admin: 07/31/24 08:29 Dose: 500 mg Documented By: DAREK Midodrine (Midodrine Hcl 5 Mg Tablet) 15 mg PO Q6H [facility] Last Admin: 07/31/24 08:30 Dose: 15 mg Documented By: DAREK Ondansetron HCl (Ondansetron Hcl 4 Mg/2 Ml Vial) 4 mg IVPUSH Q8H PRN PRN Reason: Nausea and Vomiting Last Admin: 07/18/24 21:28 Dose: 4 mg Documented By: KIARRA Oxycodone HCl (Oxycodone Hcl Er 10 Mg Tab.Er.12h) 10 mg PO BID [facility] Last Admin: 07/31/24 08:31 Dose: 10 mg Documented By: DAREK Oxycodone HCl (Oxycodone Hcl Immed Release 5 Mg Tablet) 10 mg PO Q6H PRN PRN Reason: Pain, Severe (Pain Scale 7-10) Last Admin: 07/31/24 04:40 Dose: 10 mg Documented By: LEXY Polyethylene Glycol (Polyethylene Glycol 3350 17 Gm Powd.Pack) 17 gm PO DAILY [facility] Last Admin: 07/31/24 08:31 Dose: Not Given Documented By: DAREK Non-Admin Reason: Patient Refused Sodium Biphosphate/Sodium Phosphate (Sodium Phosphate,[place]-Dibasic 133 Ml Enema) 133 ml [place] ONCE PRN PRN Reason: Constipation Last Admin: 07/25/24 18:05 Dose: 133 ml Documented By: CRYSTAL Sodium Chloride (0.9 % Sodium Chloride Flush 10 Ml Syringe) 5 ml IVFLUSH QSHIFT [facility] Last Admin: 07/31/24 08:31 Dose: 5 ml Documented By: DAREK Labs 07/31/24 06:37 07/31/24 06:37 Labs: Laboratory Results - last 24 hr 07/30/24 07/30/24 07/31/24 08:33 11:40 06:37 MCV 90.2 92.0 MCH 30.1 29.7 MCHC 33.4 32.3 RDW 13.8 13.5 Plt Count 716 H D 719 H MPV 9.8 9.6 Immature Gran % (Auto) 3.7 H 2.6 H Neut % (Auto) 81.7 H 74.3 H Lymph % (Auto) 5.2 L 7.9 L [place] % (Auto) 5.0 7.9 Eos % (Auto) 3.3 6.2 H Baso % (Auto) 1.1 1.1 Lymph # (Auto) 0.8 L 1.2 Boyd # (Auto) 0.7 1.2 Eos # (Auto) 0.5 H 0.9 H Baso # (Auto) 0.2 0.2 Abs Immat Gran (auto) 0.54 H 0.39 H Absolute Neuts (auto) 12.0 H 11.3 H Absolute Nucleated RBC 0.000 0.000 Nucleated RBC % (auto) 0.0 0.0 Anion Gap 19 16 Estim Creat Clear Calc 99.5 107.2 Estimated GFR > 60 > 60 Random Glucose 153 H 106 Calcium 9.8 9.8 Total Bilirubin 0.4 Direct Bilirubin 0.2 AST 31 ALT 29 Alkaline Phosphatase 184 H B-Natriuretic Peptide 111 H Total Protein 6.6 Albumin 3.4 L Urine Color Dark Yellow Urine Appearance Clear Urine pH 6.0 Ur Specific Phel[place] 1.020 Urine Protein 30 (1+) H Urine Glucose (UA) Negative Urine Ketones Trace Urine Blood Negative Urine Nitrite Positive H Ur Leukocyte Esterase Trace H Urine RBC 0-2 Urine WBC 0-5 Ur Squamous Epith Cells 0-2 Urine Bacteria Trace Hyaline Casts 0-2 Assessment and Plan (1) Urinary retention: Status: Acute (2) Generalized weakness: Status: Acute (3) Status post pneumonectomy: Status: Acute (4) Hyponatremia: Status: Acute (5) Pneumonia: Status: Acute (6) 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 Patient has been treated with empiric antibiotics with essentially negative cultures. His bronchoscopic lavage also had essentially negative cultures. However, clinically his pulmonary abscess got worse an he had an attempted left lower lobectomy on 07/17/2024, however he required completion left pneumonectomy, now being monitored in the intensive care unit. Extubated 07/18/2024. 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 extubated on 07/19/2024, had episodes of flash pulmonary edema treated with lasix. decompensated on 07/30 and was put on Highflow incentive spirometry, mobilization, chest percussion therapy, taper oxygen down as tolerated Thoracic surgery input appreciated: CXR 07/30 with increasing pneumonitis- unfortunately likely due to lymphovascular invasion Continue Cefepim and Flagyl acute hypokalemia, resolved follolow BMP Transaminitis LFT improving left lower rib cage pain with elevated lft's abd us:Cholelithiasis and biliary sludge with borderline wall thickening and mildly prominent common bile duct. d/w surgery -? acute cholecystis -add antibiotics GI following as MRCP--Biliary sludge. 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 No gross choledocholithiasis. Multifocal pneumonia. 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 monitor HypOtension thought to be Possibly secondary to hemodynamic changes post pneumonectomy, and temporaly required vasopressors. Continue Midodrine as needed for low BP moderate malnutrition: continue supplements, encourage PO intake dvt prophylax s/c heaprin ongoing need: Status post pneumonectomy, still requires oxygen, also has right-sided lung edema-on iv lasix ,lung biopsy showing Adenocarcinoma s/p pneumoectomy pending Oncology kendall l Quality Stroke Does the patient have a stroke diagnosis?: No VTE Prior VTE?: No VTE Risk Level:: Medical - moderate - high VTE Device Contraindication: Treatment Not Indicated VTE Drug Contraindication: N/A - Med Ordered
[2024-07-31] MEDS: hydrOXYzine HCL 25 MG TABLET PO ×2 (10:43→16:40)
[2024-07-31] MEDS: Benzonatate 100 MG CAPSULE PO (10:43)
--- NOTE | 2024-07-31 10:44 | MHC.CM.PN ---
Patient is not yet medically cleared for dc (IV ABT, IV Lasix); PT is recommending Inpatient Pulmonary Rehab vs Acute Rehab and CM will continue to follow.
[2024-07-31 12:34] LABS: Magnesium 2.2 mg/dL (1.6-2.6)
[2024-07-31] MEDS: Potassium Chloride Packet 20 MEQ PACKET 40 MEQ PO (13:15)
--- NOTE | 2024-07-31 15:06 | MHC.CLN ---
F/U DIET=REGULAR. MOST RECENT PO APPEARS TO BE POOR. LUNG BIOPSY SHOWS ADENOCARCINOMA. RECOMMEND PROVIDE SUPPLEMENTS PT ACCEPTS: ENSURE BID PROVIDES 700KCALS, 40G PROTEIN MAGIC CUP BID PROVIDES 580KCALS, 18G PROTEIN. GELATEIN TID PER NSG PROVIDES 480KCALS, 60G PROTEIN SKIN WITH DTI TO COCCYX. MONITOR PO INTAKE AND ENCOURAGE SUPPLEMENTS.
[2024-08-01] VITALS (12 sets, daily range): BP systolic 99–126; BP diastolic 57–70; PULSE 57–98; RESP 16–22; TEMP 36.1–36.6; O2SAT 92–98
[2024-08-01] MEDS: oxyCODONE HCl Immed Release 5 MG TABLET 10 MG PO ×4 (00:21→19:52)
[2024-08-01] MEDS: hydrOXYzine HCL 25 MG TABLET PO ×4 (00:21→19:52)
[2024-08-01] MEDS: metroNIDAZOLE 500 MG TABLET PO ×3 (00:21→15:23)
[2024-08-01] MEDS: cefEPime HCl/D5W 2 GM/50 ML PIGGYBACK IV ×3 (00:21→15:45)
[2024-08-01] MEDS: 0.9 % Sodium Chloride Flush 10 ML SYRINGE 5 ML IVFLUSH ×2 (00:28→08:01)
[2024-08-01] MEDS: Midodrine HCl 5 MG TABLET 15 MG PO ×4 (02:24→19:51)
[2024-08-01] MEDS: guaiFENesin LA 600 MG TAB.ER.12H PO ×2 (07:58→19:52)
[2024-08-01] MEDS: Docusate Sodium 100 MG CAPSULE PO (07:59)
[2024-08-01] MEDS: Furosemide 40 MG/4 ML VIAL IVPUSH (07:59)
[2024-08-01] MEDS: polyethylene glycoL 3350 17 GM POWD.PACK PO (07:59)
[2024-08-01] MEDS: Heparin Sodium,Porcine 5,000 UNIT/ML VIAL 5000 UNIT SUBCUT ×2 (07:59→19:53)
--- NOTE | 2024-08-01 09:20 | HO.PM.IMPN ---
Subjective Subjective Date of Service: 08/01/24 Interval History: seen and evaluated this morning Still on high flow with some improvement in breathing, still having lots of secretions Overall he thinks he is better today Physical Exam Vital Signs: Vital Signs: Last Vital Signs Temp 97.1 F 08/01/24 07:13 Pulse 80 08/01/24 07:58 Resp 18 08/01/24 07:58 BP 126/69 08/01/24 07:13 Pulse Ox 92 08/01/24 07:58 O2 Del Method High Flow Nasal C annula 08/01/24 07:13 O2 Flow Rate 40 08/01/24 07:13 FiO2 32.9 08/01/24 03:39 BMI result Body Mass Index 19.5 Const: Other: Constitutional : Awake, interactive, in moderate respiratory distress Neck : Normal inspection, Supple Cardiovascular : RRR, no JVP, no lower extremity edema Respiratory : decrease bilateral air entry mainly on left side, right sided basal crackles, no significant wheezes Gastrointestinal: soft, lax, Normal bowel sounds, Non tender Skin : Warm, Dry Neurological : Alert & oriented x3, No focal deficit Objective Data Active Medications Acetaminophen (Acetaminophen 325 Mg Tablet) 650 mg PO Q6H PRN PRN Reason: Pain, Moderate(Pain Scale 4-6) Last Admin: 07/31/24 15:50 Dose: 650 mg Documented By: NABOR Benzonatate (Benzonatate 100 Mg Capsule) 100 mg PO TID PRN PRN Reason: Cough Last Admin: 07/31/24 10:43 Dose: 100 mg Documented By: DAREK Docusate Sodium (Docusate Sodium 100 Mg Capsule) 100 mg PO BID [facility] Last Admin: 08/01/24 07:59 Dose: 100 mg Documented By: FORTUNATO Furosemide (Furosemide 40 Mg/4 Ml Vial) 40 mg IVPUSH DAILY [facility]; Protocol Last Admin: 08/01/24 07:59 Dose: 40 mg Documented By: FORTUNATO Guaifenesin (Guaifenesin La 600 Mg Tab.Er.12h) 600 mg PO BID [facility] Last Admin: 08/01/24 07:58 Dose: 600 mg Documented By: FORTUNATO Heparin Sodium (Porcine) (Heparin Sodium,Porcine 5,000 Unit/Ml Vial) 5,000 unit SUBCUT Q12H [facility] Last Admin: 08/01/24 07:59 Dose: 5,000 unit Documented By: FORTUNATO Hydroxyzine HCl (Hydroxyzine Hcl 25 Mg Tablet) 25 mg PO Q6H PRN PRN Reason: anxiety/restlessness Last Admin: 08/01/24 06:20 Dose: 25 mg Documented By: MANNY Cefepime HCl (Maxipime) 2 gm in 50 mls @ 100 mls/hr IV Q8H [facility] Last Infusion: 08/01/24 08:32 Dose: Infused Documented By: FORTUNATO Metronidazole (Metronidazole 500 Mg Tablet) 500 mg PO Q8H [facility] Last Admin: 08/01/24 07:58 Dose: 500 mg Documented By: FORTUNATO Midodrine (Midodrine Hcl 5 Mg Tablet) 15 mg PO Q6H [facility] Last Admin: 08/01/24 07:58 Dose: 15 mg Documented By: FORTUNATO Ondansetron HCl (Ondansetron Hcl 4 Mg/2 Ml Vial) 4 mg IVPUSH Q8H PRN PRN Reason: Nausea and Vomiting Last Admin: 07/18/24 21:28 Dose: 4 mg Documented By: KIARRA Oxycodone HCl (Oxycodone Hcl Immed Release 5 Mg Tablet) 10 mg PO Q6H PRN PRN Reason: Pain, Severe (Pain Scale 7-10) Last Admin: 08/01/24 06:21 Dose: 10 mg Documented By: MANNY Polyethylene Glycol (Polyethylene Glycol 3350 17 Gm Powd.Pack) 17 gm PO DAILY [facility] Last Admin: 08/01/24 07:59 Dose: 17 gm Documented By: FORTUNATO Sodium Biphosphate/Sodium Phosphate (Sodium Phosphate,[place]-Dibasic 133 Ml Enema) 133 ml [place] ONCE PRN PRN Reason: Constipation Last Admin: 07/25/24 18:05 Dose: 133 ml Documented By: CRYSTAL Sodium Chloride (0.9 % Sodium Chloride Flush 10 Ml Syringe) 5 ml IVFLUSH QSHIFT [facility] Last Admin: 08/01/24 08:01 Dose: 5 ml Documented By: FORTUNATO Labs 07/31/24 06:37 07/31/24 06:37 Labs: Laboratory Results - last 24 hr 07/31/24 06:37 Magnesium 2.2 Microbiology Microbiology Results: Microbiology 07/30/24 Unknown Urine Culture - Final Urine Catheterized - Rizvi Catheter No growth. Assessment and Plan (1) Hypoxia: Status: Acute (2) Abscess of lung with pneumonia: Status: Acute (3) Acute hypoxic respiratory failure: Status: Acute (4) Pneumonia: Status: Acute (5) Status post pneumonectomy: Status: Acute Plan 59-year-old gentleman, recent 30+ pack-year smoker admitted on 06/14/2024 with hypoxia and multifocal pneumonia with abscesses. Patient has been treated with empiric antibiotics with essentially negative cultures. His bronchoscopic lavage also had essentially negative cultures. However, clinically his pulmonary abscess got worse an he had an attempted left lower lobectomy on 07/17/2024, however he required completion left pneumonectomy, now being monitored in the intensive care unit. Extubated 07/18/2024. 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 decompensated on 07/30 and was put on Highflow and remains on highflow incentive spirometry, mobilization, chest percussion therapy, taper oxygen down as tolerated Thoracic surgery input appreciated: CXR 07/30 with increasing pneumonitis- unfortunately likely due to lymphovascular invasion Continue Cefepim and Flagyl for now and stop after 7 days acute hypokalemia, resolved follolow BMP Transaminitis LFT improving left lower rib cage pain with elevated lft's abd us:Cholelithiasis and biliary sludge with borderline wall thickening and mildly prominent common bile duct. d/w surgery -? acute cholecystis -add antibiotics GI following as MRCP--Biliary sludge. 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 No gross choledocholithiasis. Multifocal pneumonia. 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 monitor HypOtension thought to be Possibly secondary to hemodynamic changes post pneumonectomy, and temporaly required vasopressors. Continue Midodrine as needed for low BP moderate malnutrition: continue supplements, encourage PO intake dvt prophylax s/c heaprin ongoing need: Status post pneumonectomy, still requires oxygen, also has right-sided lung edema-on iv lasix ,lung biopsy showing Adenocarcinoma s/p pneumoectomy pending Oncology kendall l Quality Stroke Does the patient have a stroke diagnosis?: No VTE Prior VTE?: No VTE Risk Level:: Medical - moderate - high VTE Device Contraindication: Treatment Not Indicated VTE Drug Contraindication: N/A - Med Ordered
[2024-08-01 10:32] LABS: Anion Gap 14 (12-20); Blood Urea Nitrogen 18 mg/dL (9-16); Calcium 9.5 mg/dL (8.4-10.2); Carbon Dioxide 34 mmol/L (22-29); Chloride 90 mmol/L (96-108); Creatinine Clr Calc Pharmacy 90.3; Estimated Glomerular Filt Rate > 60; Glucose Random 144 mg/dL (60-115); Potassium 3.6 mmol/L (3.3-5.1); Sodium 134 mmol/L (135-145)
[2024-08-01] MEDS: Benzonatate 100 MG CAPSULE PO (12:54)
[2024-08-01] MEDS: Acetaminophen 325 MG TABLET 650 MG PO (15:48)
[2024-08-02] VITALS (11 sets, daily range): BP systolic 106–135; BP diastolic 64–77; PULSE 68–94; RESP 16–24; TEMP 36.8–37; O2SAT 92–98
[2024-08-02] MEDS: cefEPime HCl/D5W 2 GM/50 ML PIGGYBACK IV ×3 (01:08→16:28)
[2024-08-02] MEDS: metroNIDAZOLE 500 MG TABLET PO ×3 (01:09→16:28)
[2024-08-02] MEDS: 0.9 % Sodium Chloride Flush 10 ML SYRINGE 5 ML IVFLUSH ×3 (01:09→16:29)
[2024-08-02] MEDS: Midodrine HCl 5 MG TABLET 15 MG PO ×4 (03:54→19:58)
[2024-08-02] MEDS: Acetaminophen 325 MG TABLET 650 MG PO ×2 (03:56→13:02)
[2024-08-02] MEDS: Furosemide 40 MG/4 ML VIAL IVPUSH (07:55)
[2024-08-02] MEDS: oxyCODONE HCl Immed Release 5 MG TABLET 10 MG PO ×3 (07:55→19:58)
[2024-08-02] MEDS: guaiFENesin LA 600 MG TAB.ER.12H PO ×2 (07:55→19:57)
[2024-08-02] MEDS: hydrOXYzine HCL 25 MG TABLET PO ×3 (07:55→19:59)
[2024-08-02] MEDS: Docusate Sodium 100 MG CAPSULE PO ×2 (07:55→19:58)
[2024-08-02] MEDS: Heparin Sodium,Porcine 5,000 UNIT/ML VIAL 5000 UNIT SUBCUT ×2 (07:56→19:59)
[2024-08-02] MEDS: polyethylene glycoL 3350 17 GM POWD.PACK PO (08:56)
--- NOTE | 2024-08-02 10:18 | P.PNIM_ITS ---
Subjective Subjective Date of Service: 08/02/24 Interval History: seen and evaluated this morning Still on high flow with some improvement in breathing, still having lots of secretion. He is frustrated about not getting pain medication timely Physical Exam 2 Vital Signs: Vital Signs: Last Vital Signs Temp 98.2 F 08/02/24 07:38 Pulse 77 08/02/24 07:38 Resp 20 08/02/24 08:04 BP 108/77 08/02/24 07:38 Pulse Ox 94 08/02/24 07:38 O2 Del Method High Flow Nasal C annula 08/02/24 07:38 O2 Flow Rate 40 08/02/24 07:38 FiO2 53 08/02/24 07:38 BMI result Body Mass Index 19.5 Const: Other: Constitutional : Awake, talkative, no distres, gaunt looking Neck : Normal inspection, Supple Cardiovascular : RRR, no JVP, no lower extremity edema Respiratory : decrease bilateral air entry mainly on left side, right sided basal crackles, no significant wheezes Gastrointestinal: soft, lax, Normal bowel sounds, Non tender Skin : Warm, Dry Neurological : Alert & oriented x3, No focal deficit Objective Data Active Medications Acetaminophen (Acetaminophen 325 Mg Tablet) 650 mg PO Q6H PRN PRN Reason: Pain, Moderate(Pain Scale 4-6) Last Admin: 08/02/24 03:56 Dose: 650 mg Documented By: MEGHAN Benzonatate (Benzonatate 100 Mg Capsule) 100 mg PO TID PRN PRN Reason: Cough Last Admin: 08/01/24 12:54 Dose: 100 mg Documented By: FORTUNATO Docusate Sodium (Docusate Sodium 100 Mg Capsule) 100 mg PO BID [facility] Last Admin: 08/02/24 07:55 Dose: 100 mg Documented By: FORTUNATO Furosemide (Furosemide 40 Mg/4 Ml Vial) 40 mg IVPUSH DAILY [facility]; Protocol Last Admin: 08/02/24 07:55 Dose: 40 mg Documented By: FORTUNATO Guaifenesin (Guaifenesin La 600 Mg Tab.Er.12h) 600 mg PO BID [facility] Last Admin: 08/02/24 07:55 Dose: 600 mg Documented By: FORTUNATO Heparin Sodium (Porcine) (Heparin Sodium,Porcine 5,000 Unit/Ml Vial) 5,000 unit SUBCUT Q12H [facility] Last Admin: 08/02/24 07:56 Dose: 5,000 unit Documented By: FORTUNATO Hydroxyzine HCl (Hydroxyzine Hcl 25 Mg Tablet) 25 mg PO Q6H PRN PRN Reason: anxiety/restlessness Last Admin: 08/02/24 07:55 Dose: 25 mg Documented By: FORTUNATO Cefepime HCl (Maxipime) 2 gm in 50 mls @ 100 mls/hr IV Q8H [facility] Last Infusion: 08/02/24 09:48 Dose: Infused Documented By: FORTUNATO Metronidazole (Metronidazole 500 Mg Tablet) 500 mg PO Q8H [facility] Last Admin: 08/02/24 07:55 Dose: 500 mg Documented By: FORTUNATO Midodrine (Midodrine Hcl 5 Mg Tablet) 15 mg PO Q6H [facility] Last Admin: 08/02/24 07:55 Dose: 15 mg Documented By: FORTUNATO Ondansetron HCl (Ondansetron Hcl 4 Mg/2 Ml Vial) 4 mg IVPUSH Q8H PRN PRN Reason: Nausea and Vomiting Last Admin: 07/18/24 21:28 Dose: 4 mg Documented By: KIARRA Oxycodone HCl (Oxycodone Hcl Immed Release 5 Mg Tablet) 10 mg PO Q6H PRN PRN Reason: Pain, Severe (Pain Scale 7-10) Last Admin: 08/02/24 07:55 Dose: 10 mg Documented By: FORTUNATO Polyethylene Glycol (Polyethylene Glycol 3350 17 Gm Powd.Pack) 17 gm PO DAILY [facility] Last Admin: 08/02/24 08:56 Dose: 17 gm Documented By: FORTUNATO Sodium Biphosphate/Sodium Phosphate (Sodium Phosphate,[place]-Dibasic 133 Ml Enema) 133 ml [place] ONCE PRN PRN Reason: Constipation Last Admin: 07/25/24 18:05 Dose: 133 ml Documented By: CRYSTAL Sodium Chloride (0.9 % Sodium Chloride Flush 10 Ml Syringe) 5 ml IVFLUSH QSHIFT [facility] Last Admin: 08/02/24 08:51 Dose: 5 ml Documented By: FORTUNATO Labs 07/31/24 06:37 08/01/24 09:47 Labs: Laboratory Results - last 24 hr 08/01/24 09:47 Anion Gap 14 Estim Creat Clear Calc 90.3 Estimated GFR > 60 Random Glucose 144 H Calcium 9.5 Assessment and Plan (1) Hypoxia: Status: Acute (2) Abscess of lung with pneumonia: Status: Acute (3) Acute hypoxic respiratory failure: Status: Acute (4) Pneumonia: Status: Acute (5) Status post pneumonectomy: Status: Acute Plan 59-year-old gentleman, recent 30+ pack-year smoker admitted on 06/14/2024 with hypoxia and multifocal pneumonia with abscesses. Patient has been treated with empiric antibiotics with essentially negative cultures. His bronchoscopic lavage also had essentially negative cultures. However, clinically his pulmonary abscess got worse an he had an attempted left lower lobectomy on 07/17/2024, however he required completion left pneumonectomy, now being monitored in the intensive care unit. Extubated 07/18/2024. 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 decompensated on 07/30 and was put on Highflow and remains on highflow incentive spirometry, mobilization, chest percussion therapy, taper oxygen down as tolerated Thoracic surgery input appreciated: CXR 07/30 with increasing pneumonitis- unfortunately likely due to lymphovascular invasion Continue Cefepim and Flagyl for now and stop after 7 days. Overall poor prognosis, will initiate goal of care conversation with him, oncology and family, hospic care maybe a reasonable acute hypokalemia, resolved follolow BMP Transaminitis LFT improving left lower rib cage pain with elevated lft's abd us:Cholelithiasis and biliary sludge with borderline wall thickening and mildly prominent common bile duct. d/w surgery -? acute cholecystis -add antibiotics GI following as MRCP--Biliary sludge. 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 No gross choledocholithiasis. Multifocal pneumonia. 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 monitor HypOtension thought to be Possibly secondary to hemodynamic changes post pneumonectomy, and temporaly required vasopressors. Continue Midodrine as needed for low BP moderate malnutrition: continue supplements, encourage PO intake dvt prophylax s/c heaprin ongoing need: Status post pneumonectomy, still requires oxygen, also has right- sided lung edema-on iv lasix ,lung biopsy showing Adenocarcinoma s/p pneumoectomy pending Oncology kendall l Quality Stroke Does the patient have a stroke diagnosis?: No VTE Prior VTE?: No VTE Risk Level:: Medical - moderate - high VTE Device Contraindication: Treatment Not Indicated VTE Drug Contraindication: N/A - Med Ordered
[2024-08-02] MEDS: Benzonatate 100 MG CAPSULE PO (13:01)
[2024-08-03] VITALS (14 sets, daily range): BP systolic 100–139; BP diastolic 64–73; PULSE 62–100; RESP 16–24; TEMP 36.4–37.5; O2SAT 92–98
[2024-08-03] MEDS: Acetaminophen 325 MG TABLET 650 MG PO ×3 (00:32→23:46)
[2024-08-03] MEDS: cefEPime HCl/D5W 2 GM/50 ML PIGGYBACK IV ×3 (00:36→16:01)
[2024-08-03] MEDS: metroNIDAZOLE 500 MG TABLET PO ×3 (01:08→16:00)
[2024-08-03] MEDS: oxyCODONE HCl Immed Release 5 MG TABLET 10 MG PO ×4 (02:11→20:22)
[2024-08-03] MEDS: Midodrine HCl 5 MG TABLET 15 MG PO ×4 (02:12→20:22)
[2024-08-03] MEDS: hydrOXYzine HCL 25 MG TABLET PO ×4 (02:12→20:22)
[2024-08-03] MEDS: polyethylene glycoL 3350 17 GM POWD.PACK PO (08:27)
[2024-08-03] MEDS: Docusate Sodium 100 MG CAPSULE PO ×2 (08:27→20:23)
[2024-08-03] MEDS: guaiFENesin LA 600 MG TAB.ER.12H PO ×2 (08:27→20:23)
[2024-08-03] MEDS: Furosemide 40 MG/4 ML VIAL IVPUSH (08:28)
[2024-08-03] MEDS: Heparin Sodium,Porcine 5,000 UNIT/ML VIAL 5000 UNIT SUBCUT ×2 (08:28→20:22)
[2024-08-03] MEDS: 0.9 % Sodium Chloride Flush 10 ML SYRINGE 5 ML IVFLUSH ×3 (08:31→20:23)
[2024-08-03 08:33] LABS: Hematocrit 40.4 % (42.0-52.0); Hemoglobin 13.4 g/dl (14.0-18.0); Mean Corpuscular HGB Conc 33.2 g/dl (31.0-36.0); Mean Corpuscular Hemoglobin 29.8 pg (27.0-33.0); Mean Corpuscular Volume 89.8 fL (80.0-98.0); Mean Platelet Volume 9.7 fL (9.4-12.4); Platelet Count 680 X10*3/uL (160-400); Red Cell Distribution Width 13.7 % (11.0-16.0); White Blood Count 12.5 X10*3/uL (4.8-10.8)
[2024-08-03 08:49] LABS: Anion Gap 16 (12-20); Blood Urea Nitrogen 18 mg/dL (9-16); Calcium 9.4 mg/dL (8.4-10.2); Carbon Dioxide 32 mmol/L (22-29); Chloride 89 mmol/L (96-108); Estimated Glomerular Filt Rate > 60; Glucose Random 113 mg/dL (60-115); Potassium 3.6 mmol/L (3.3-5.1); Sodium 133 mmol/L (135-145)
--- NOTE | 2024-08-03 11:08 | P.PNIM_ITS ---
Subjective Subjective Date of Service: 08/03/24 Interval History: seen and evaluated this morning Still on high flow O2, and ongoing secretions. Physical Exam 2 Vital Signs: Vital Signs: Last Vital Signs Temp 99.5 F 08/03/24 10:45 Pulse 67 08/03/24 10:45 Resp 20 08/03/24 10:45 BP 101/67 08/03/24 10:45 Pulse Ox 96 08/03/24 10:45 O2 Del Method High Flow Nasal C annula 08/03/24 10:45 O2 Flow Rate 55 08/03/24 10:45 FiO2 50 08/03/24 10:45 BMI result Body Mass Index 19.5 Const: Other: Constitutional : Awake, talkative, no distres, gaunt looking Neck : Normal inspection, Supple Cardiovascular : RRR, no JVP, no lower extremity edema Respiratory : decrease bilateral air entry mainly on left side, right sided basal crackles, no significant wheezes Gastrointestinal: soft, lax, Normal bowel sounds, Non tender Skin : Warm, Dry Neurological : Alert & oriented x3, No focal deficit Objective Data Active Medications Acetaminophen (Acetaminophen 325 Mg Tablet) 650 mg PO Q6H PRN PRN Reason: Pain, Moderate(Pain Scale 4-6) Last Admin: 08/03/24 00:32 Dose: 650 mg Documented By: ANTOINC Benzonatate (Benzonatate 100 Mg Capsule) 100 mg PO TID PRN PRN Reason: Cough Last Admin: 08/02/24 13:01 Dose: 100 mg Documented By: FORTUNATO Comments: ZENAIDA Cortes, verified w/ RN Todd Docusate Sodium (Docusate Sodium 100 Mg Capsule) 100 mg PO BID [facility] Last Admin: 08/03/24 08:27 Dose: 100 mg Documented By: ADRIAN Furosemide (Furosemide 40 Mg/4 Ml Vial) 40 mg IVPUSH DAILY [facility]; Protocol Last Admin: 08/03/24 08:28 Dose: 40 mg Documented By: ADRIAN Guaifenesin (Guaifenesin La 600 Mg Tab.Er.12h) 600 mg PO BID [facility] Last Admin: 08/03/24 08:27 Dose: 600 mg Documented By: ADRIAN Heparin Sodium (Porcine) (Heparin Sodium,Porcine 5,000 Unit/Ml Vial) 5,000 unit SUBCUT Q12H [facility] Last Admin: 08/03/24 08:28 Dose: 5,000 unit Documented By: ADRIAN Hydroxyzine HCl (Hydroxyzine Hcl 25 Mg Tablet) 25 mg PO Q6H PRN PRN Reason: anxiety/restlessness Last Admin: 08/03/24 08:27 Dose: 25 mg Documented By: ADRIAN Cefepime HCl (Maxipime) 2 gm in 50 mls @ 100 mls/hr IV Q8H [facility] Last Infusion: 08/03/24 09:37 Dose: Infused Documented By: ADRIAN Metronidazole (Metronidazole 500 Mg Tablet) 500 mg PO Q8H [facility] Last Admin: 08/03/24 08:27 Dose: 500 mg Documented By: ADRIAN Midodrine (Midodrine Hcl 5 Mg Tablet) 15 mg PO Q6H [facility] Last Admin: 08/03/24 08:28 Dose: 15 mg Documented By: ADRIAN Ondansetron HCl (Ondansetron Hcl 4 Mg/2 Ml Vial) 4 mg IVPUSH Q8H PRN PRN Reason: Nausea and Vomiting Last Admin: 07/18/24 21:28 Dose: 4 mg Documented By: KIARRA Oxycodone HCl (Oxycodone Hcl Immed Release 5 Mg Tablet) 10 mg PO Q6H PRN PRN Reason: Pain, Severe (Pain Scale 7-10) Last Admin: 08/03/24 08:27 Dose: 10 mg Documented By: ADRIAN Polyethylene Glycol (Polyethylene Glycol 3350 17 Gm Powd.Pack) 17 gm PO DAILY [facility] Last Admin: 08/03/24 08:27 Dose: 17 gm Documented By: ADRIAN Sodium Biphosphate/Sodium Phosphate (Sodium Phosphate,[place]-Dibasic 133 Ml Enema) 133 ml [place] ONCE PRN PRN Reason: Constipation Last Admin: 07/25/24 18:05 Dose: 133 ml Documented By: CRYSTAL Sodium Chloride (0.9 % Sodium Chloride Flush 10 Ml Syringe) 5 ml IVFLUSH QSHIFT [facility] Last Admin: 08/03/24 08:31 Dose: 5 ml Documented By: ADRIAN Labs 08/03/24 08:01 08/03/24 08:01 Labs: Laboratory Results - last 24 hr 08/03/24 08:01 MCV 89.8 MCH 29.8 MCHC 33.2 RDW 13.7 Plt Count 680 H MPV 9.7 Absolute Nucleated RBC 0.000 Nucleated RBC % (auto) 0.0 Anion Gap 16 Estim Creat Clear Calc 104.0 Estimated GFR > 60 Random Glucose 113 Calcium 9.4 Assessment and Plan (1) Hypoxia: Status: Acute (2) Abscess of lung with pneumonia: Status: Acute (3) Acute hypoxic respiratory failure: Status: Acute (4) Pneumonia: Status: Acute (5) Status post pneumonectomy: Status: Acute Plan 59-year-old gentleman, recent 30+ pack-year smoker admitted on 06/14/2024 with hypoxia and multifocal pneumonia with abscesses. Patient has been treated with empiric antibiotics with essentially negative cultures. His bronchoscopic lavage also had essentially negative cultures. However, clinically his pulmonary abscess got worse an he had an attempted left lower lobectomy on 07/17/2024, however he required completion left pneumonectomy, now being monitored in the intensive care unit. Extubated 07/18/2024. 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 decompensated on 07/30 and was put on Highflow and remains on highflow incentive spirometry, mobilization, chest percussion therapy, taper oxygen down as tolerated Thoracic surgery input appreciated: CXR 07/30 with increasing pneumonitis- unfortunately likely due to lymphovascular invasion Continue Cefepim and Flagyl for now and stop after 7 days. Overall poor prognosis, will initiate goal of care conversation with him, oncology and family, hospic care maybe a reasonable Repeat CXR today, and pulmomonary reassessment acute hypokalemia, resolved follolow BMP Transaminitis LFT improving left lower rib cage pain with elevated lft's abd us:Cholelithiasis and biliary sludge with borderline wall thickening and mildly prominent common bile duct. d/w surgery -? acute cholecystis -add antibiotics GI following as MRCP--Biliary sludge. 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 No gross choledocholithiasis. Multifocal pneumonia. 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 monitor HypOtension thought to be Possibly secondary to hemodynamic changes post pneumonectomy, and temporaly required vasopressors. Continue Midodrine as needed for low BP moderate malnutrition: continue supplements, encourage PO intake dvt prophylax s/c heaprin ongoing need: Status post pneumonectomy, still requires oxygen, also has right- sided lung edema-on iv lasix ,lung biopsy showing Adenocarcinoma s/p pneumoectomy pending Oncology kendall l Quality Stroke Does the patient have a stroke diagnosis?: No VTE Prior VTE?: No VTE Risk Level:: Medical - moderate - high VTE Device Contraindication: Treatment Not Indicated VTE Drug Contraindication: N/A - Med Ordered
[2024-08-03 11:49] LABS: Alanine Aminotransferase 21 U/L (0-40); Albumin Level 3.4 g/dL (3.5-5.0); Aspartate Amino Transferase 26 U/L (5-37); Bilirubin Direct 0.2 mg/dL (0.0-0.5); Bilirubin Total 0.3 mg/dL (0.0-1.0); Total Protein 6.7 g/dL (6.5-8.0)
[2024-08-03 11:59] LABS: Alkaline Phosphatase 149 U/L (39-117)
--- NOTE | 2024-08-03 13:24 | HO.SKINPHOTO ---
Location: Category: Stage: Length: Width: Depth: cm Location: Category: Stage: Length: Width: Depth: cm Location: Category: Stage: Length: Width: Depth: cm Location: Category: Stage: Length: Width: Depth: cm Location: Category: Stage: Length: Width: Depth: cm Location: Category: Stage: Length: Width: Depth: cm
--- NOTE | 2024-08-03 13:51 | MHC.CM.PN ---
EMR REVIEWED, PT S/P PNEUMONECTOMY, PER HOSPITALIST PLAN TO DISCUSS POSSIBLE HOSPICE W/ONCOLOGY, NO PLAN FOR DC AT THIS TIME, [facility] FOLLOWING FOR PULONARY REHAB, CM WILL CONT TO FOLLOW DC NEEDS.
--- NOTE | 2024-08-03 14:55 | MHC.CLN ---
F/U DIET=REGULAR. MOST RECENT PO APPROX 50%. LUNG BIOPSY SHOWS ADENOCARCINOMA. CONTINUE TO PROVIDE SUPPLEMENTS PT ACCEPTS: ENSURE BID PROVIDES 700KCALS, 40G PROTEIN MAGIC CUP BID PROVIDES 580KCALS, 18G PROTEIN. GELATEIN TID PER NSG PROVIDES 480KCALS, 60G PROTEIN SKIN WITH DTI TO COCCYX. MONITOR PO INTAKE AND ENCOURAGE SUPPLEMENTS.
[2024-08-04] VITALS (9 sets, daily range): BP systolic 102–133; BP diastolic 61–69; PULSE 71–79; RESP 15–20; TEMP 36.2–36.8; O2SAT 92–97; BMI 17.1
[2024-08-04] MEDS: oxyCODONE HCl Immed Release 5 MG TABLET 10 MG PO ×4 (01:49→20:00)
[2024-08-04] MEDS: metroNIDAZOLE 500 MG TABLET PO ×3 (01:50→16:33)
[2024-08-04] MEDS: Midodrine HCl 5 MG TABLET 15 MG PO ×4 (03:42→19:59)
[2024-08-04] MEDS: polyethylene glycoL 3350 17 GM POWD.PACK PO (08:01)
[2024-08-04] MEDS: Docusate Sodium 100 MG CAPSULE PO ×2 (08:05→19:59)
[2024-08-04] MEDS: hydrOXYzine HCL 25 MG TABLET PO ×3 (08:05→20:01)
[2024-08-04] MEDS: guaiFENesin LA 600 MG TAB.ER.12H PO ×2 (08:06→19:59)
[2024-08-04] MEDS: cefEPime HCl/D5W 2 GM/50 ML PIGGYBACK IV ×3 (08:06→16:34)
[2024-08-04] MEDS: Furosemide 40 MG/4 ML VIAL IVPUSH (08:07)
[2024-08-04] MEDS: Heparin Sodium,Porcine 5,000 UNIT/ML VIAL 5000 UNIT SUBCUT ×2 (08:07→19:59)
[2024-08-04] MEDS: 0.9 % Sodium Chloride Flush 10 ML SYRINGE 5 ML IVFLUSH ×3 (08:08→20:01)
--- NOTE | 2024-08-04 08:15 | PM.PNGS ---
Subjective Subjective Date of Service: 08/04/24 Interval history: Asked to reevaluate thoracotomy incision. C/o pain at incision site at back. Physical Exam Vital Signs: Vital Signs: Last Vital Signs Temp 97.3 F 08/04/24 07:36 Pulse 72 08/04/24 07:56 Resp 20 08/04/24 07:56 BP 112/61 08/04/24 07:36 Pulse Ox 92 08/04/24 07:56 O2 Del Method High Flow Nasal C annula 08/04/24 07:36 O2 Flow Rate 32.9 08/04/24 07:36 FiO2 49 08/04/24 07:36 BMI result Body Mass Index 19.5 Const: General: alert and ill appearing Orientation/consciousness: patient oriented x3 Chest: Other: left thoracotomy incision- anterior half clean appearing and well healed, posterior half with erythema and small amount of fluctuance palpated underneath, some superficial skin separation at end with fibrinous exudate; surrounding skin of back with nonblanchable erythema Resp: Effort & Inspection: not able to speak in complete sentences, tachypneic and uses accessory muscles Neuro: General: patient oriented x3 and moves all extremities Objective Data Active Medications Acetaminophen (Acetaminophen 325 Mg Tablet) 650 mg PO Q6H PRN PRN Reason: Pain, Moderate(Pain Scale 4-6) Last Admin: 08/03/24 23:46 Dose: 650 mg Documented By: MEGHAN Benzonatate (Benzonatate 100 Mg Capsule) 100 mg PO TID PRN PRN Reason: Cough Last Admin: 08/02/24 13:01 Dose: 100 mg Documented By: FORTUNATO Comments: ZENAIAD Cortes, jorge w/ RN Todd Docusate Sodium (Docusate Sodium 100 Mg Capsule) 100 mg PO BID [facility] Last Admin: 08/03/24 20:23 Dose: 100 mg Documented By: ASHLEY Furosemide (Furosemide 40 Mg/4 Ml Vial) 40 mg IVPUSH DAILY [facility]; Protocol Last Admin: 08/03/24 08:28 Dose: 40 mg Documented By: ADRIAN Guaifenesin (Guaifenesin La 600 Mg Tab.Er.12h) 600 mg PO BID [facility] Last Admin: 08/03/24 20:23 Dose: 600 mg Documented By: ASHLEY Heparin Sodium (Porcine) (Heparin Sodium,Porcine 5,000 Unit/Ml Vial) 5,000 unit SUBCUT Q12H [facility] Last Admin: 08/03/24 20:22 Dose: 5,000 unit Documented By: ASHLEY Hydroxyzine HCl (Hydroxyzine Hcl 25 Mg Tablet) 25 mg PO Q6H PRN PRN Reason: anxiety/restlessness Last Admin: 08/03/24 20:22 Dose: 25 mg Documented By: ASHLEY Cefepime HCl (Maxipime) 2 gm in 50 mls @ 100 mls/hr IV Q8H [facility] Last Infusion: 08/04/24 00:30 Dose: Infused Documented By: MEGHAN Metronidazole (Metronidazole 500 Mg Tablet) 500 mg PO Q8H [facility] Last Admin: 08/04/24 01:50 Dose: 500 mg Documented By: MEGHAN Midodrine (Midodrine Hcl 5 Mg Tablet) 15 mg PO Q6H [facility] Last Admin: 08/04/24 03:42 Dose: 15 mg Documented By: MEGHAN Ondansetron HCl (Ondansetron Hcl 4 Mg/2 Ml Vial) 4 mg IVPUSH Q8H PRN PRN Reason: Nausea and Vomiting Last Admin: 07/18/24 21:28 Dose: 4 mg Documented By: KIARRA Oxycodone HCl (Oxycodone Hcl Immed Release 5 Mg Tablet) 10 mg PO Q6H PRN PRN Reason: Pain, Severe (Pain Scale 7-10) Last Admin: 08/04/24 01:49 Dose: 10 mg Documented By: MEGHAN Polyethylene Glycol (Polyethylene Glycol 3350 17 Gm Powd.Pack) 17 gm PO DAILY [facility] Last Admin: 08/03/24 08:27 Dose: 17 gm Documented By: RICCIAV Sodium Biphosphate/Sodium Phosphate (Sodium Phosphate,[place]-Dibasic 133 Ml Enema) 133 ml [place] ONCE PRN PRN Reason: Constipation Last Admin: 07/25/24 18:05 Dose: 133 ml Documented By: CRYSTAL Sodium Chloride (0.9 % Sodium Chloride Flush 10 Ml Syringe) 5 ml IVFLUSH QSHIFT [facility] Last Admin: 08/03/24 20:23 Dose: 5 ml Documented By: ASHLEY Labs 08/03/24 08:01 08/03/24 08:01 Labs: Laboratory Results - last 24 hr 08/03/24 08:01 MCV 89.8 MCH 29.8 MCHC 33.2 RDW 13.7 Plt Count 680 H MPV 9.7 Absolute Nucleated RBC 0.000 Nucleated RBC % (auto) 0.0 Anion Gap 16 Estim Creat Clear Calc 104.0 Estimated GFR > 60 Random Glucose 113 Calcium 9.4 Total Bilirubin 0.3 Direct Bilirubin 0.2 AST 26 ALT 21 Alkaline Phosphatase 149 H Total Protein 6.7 Albumin 3.4 L Microbiology Microbiology Results: Microbiology 07/11/24 10:46 Fungal Identification - Preliminary Bronchial Washings No growth after 3 weeks. Procedures Date of Service Date of Service: 08/04/24 Progress Note: A&P Assessment and plan (1) Adenocarcinoma, lung: Status: Acute (2) Status post pneumonectomy: Status: Acute Plan Posterior half of thoracotomy incision with erythema and some fluctuance palpated. The subcutaneous tissue of this area was opened up sharply with scissors and dissected into the subq tissue- no fluid collection encountered. This was packed with corner of saline soaked fluff followed by allevyn foam dressing. He was instructed to keep pressure off this area to allow for wound healing. Local daily wound care with saline soaked 2x2 to open wound area followed by allevyn foam pad. He is on IV abx. Time Spent With Patient Time: Total time managing care of this patient today ____ minutes. Quality Stroke Does the patient have a stroke diagnosis?: No VTE Prior VTE?: No VTE Risk Level:: Medical - moderate - high VTE Device Contraindication: Treatment Not Indicated VTE Drug Contraindication: N/A - Med Ordered
[2024-08-04] MEDS: Acetaminophen 325 MG TABLET 650 MG PO ×2 (12:04→22:36)
[2024-08-04] MEDS: Benzonatate 100 MG CAPSULE PO (12:05)
[2024-08-04 15:26] LABS: Lactate Dehydrogenase 239 U/L (118-273)
--- NOTE | 2024-08-04 15:46 | P.PNIM_ITS ---
Subjective Subjective Date of Service: 08/04/24 Interval History: acute hpyoxic respiratory failure 2/2 Metastatic adenocarcinoma Review of Systems sob seems similar on high flow Physical Exam 2 Vital Signs: Vital Signs: Last Vital Signs Temp 97.3 F 08/04/24 07:36 Pulse 72 08/04/24 07:56 Resp 18 08/04/24 15:23 BP 112/61 08/04/24 07:36 Pulse Ox 92 08/04/24 07:56 O2 Del Method High Flow Nasal C annula 08/04/24 07:36 O2 Flow Rate 32.9 08/04/24 07:36 FiO2 49 08/04/24 07:36 BMI result Body Mass Index 17.1 Constitutional : Awake, talkative, no distress Neck : Normal inspection, Supple Cardiovascular : RRR, no JVP, no lower extremity edema Respiratory : decrease bilateral air entry mainly on left side, right sided basal crackles, no significant wheezes Gastrointestinal: soft, lax, Normal bowel sounds, Non tender Skin : Warm, Dry Neurological : Alert & oriented x3, No focal deficit Objective Data Active Medications Acetaminophen (Acetaminophen 325 Mg Tablet) 650 mg PO Q6H PRN PRN Reason: Pain, Moderate(Pain Scale 4-6) Last Admin: 08/04/24 12:04 Dose: 650 mg Documented By: ADRIAN Benzonatate (Benzonatate 100 Mg Capsule) 100 mg PO TID PRN PRN Reason: Cough Last Admin: 08/04/24 12:05 Dose: 100 mg Documented By: ADRIAN Docusate Sodium (Docusate Sodium 100 Mg Capsule) 100 mg PO BID [facility] Last Admin: 08/04/24 08:05 Dose: 100 mg Documented By: ADRIAN Furosemide (Furosemide 40 Mg/4 Ml Vial) 40 mg IVPUSH DAILY [facility]; Protocol Last Admin: 08/04/24 08:07 Dose: 40 mg Documented By: ADRIAN Guaifenesin (Guaifenesin La 600 Mg Tab.Er.12h) 600 mg PO BID [facility] Last Admin: 08/04/24 08:06 Dose: 600 mg Documented By: ADRIAN Heparin Sodium (Porcine) (Heparin Sodium,Porcine 5,000 Unit/Ml Vial) 5,000 unit SUBCUT Q12H [facility] Last Admin: 08/04/24 08:07 Dose: 5,000 unit Documented By: ADRIAN Hydroxyzine HCl (Hydroxyzine Hcl 25 Mg Tablet) 25 mg PO Q6H PRN PRN Reason: anxiety/restlessness Last Admin: 08/04/24 14:14 Dose: 25 mg Documented By: ADRIAN Cefepime HCl (Maxipime) 2 gm in 50 mls @ 100 mls/hr IV Q8H [facility] Last Infusion: 08/04/24 09:16 Dose: Infused Documented By: ADRIAN Metronidazole (Metronidazole 500 Mg Tablet) 500 mg PO Q8H [facility] Last Admin: 08/04/24 08:05 Dose: 500 mg Documented By: ADRIAN Midodrine (Midodrine Hcl 5 Mg Tablet) 15 mg PO Q6H [facility] Last Admin: 08/04/24 08:08 Dose: 15 mg Documented By: ADRIAN Ondansetron HCl (Ondansetron Hcl 4 Mg/2 Ml Vial) 4 mg IVPUSH Q8H PRN PRN Reason: Nausea and Vomiting Last Admin: 07/18/24 21:28 Dose: 4 mg Documented By: KIARRA Oxycodone HCl (Oxycodone Hcl Immed Release 5 Mg Tablet) 10 mg PO Q6H PRN PRN Reason: Pain, Severe (Pain Scale 7-10) Last Admin: 08/04/24 14:14 Dose: 10 mg Documented By: ADRIAN Polyethylene Glycol (Polyethylene Glycol 3350 17 Gm Powd.Pack) 17 gm PO DAILY [facility] Last Admin: 08/04/24 08:01 Dose: 17 gm Documented By: ADRIAN Sodium Biphosphate/Sodium Phosphate (Sodium Phosphate,[place]-Dibasic 133 Ml Enema) 133 ml [place] ONCE PRN PRN Reason: Constipation Last Admin: 07/25/24 18:05 Dose: 133 ml Documented By: CRYSTAL Sodium Chloride (0.9 % Sodium Chloride Flush 10 Ml Syringe) 5 ml IVFLUSH QSHIFT [facility] Last Admin: 08/04/24 08:08 Dose: 5 ml Documented By: ADRIAN Labs 08/03/24 08:01 08/03/24 08:01 Labs: Laboratory Results - last 24 hr 08/04/24 14:49 Lactate Dehydrogenase 239 Carcinoembryonic Ag 15.60 Microbiology Microbiology Results: Microbiology 07/11/24 10:46 Fungal Identification - Preliminary Bronchial Washings No growth after 3 weeks. Assessment and Plan (1) Hypoxia: Status: Acute (2) Abscess of lung with pneumonia: Status: Acute (3) Acute hypoxic respiratory failure: Status: Acute (4) Pneumonia: Status: Acute (5) Status post pneumonectomy: Status: Acute Plan 59-year-old gentleman, recent 30+ pack-year smoker admitted on 06/14/2024 with hypoxia and multifocal pneumonia with abscesses. Patient has been treated with empiric antibiotics with essentially negative cultures. His bronchoscopic lavage also had essentially negative cultures. However, clinically his pulmonary abscess got worse an he had an attempted left lower lobectomy on 07/17/2024, however he required completion left pneumonectomy, now being monitored in the intensive care unit. Extubated 07/18/2024. 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 decompensated on 07/30 and was put on Highflow and remains on highflow incentive spirometry, mobilization, chest percussion therapy, taper oxygen down as tolerated Thoracic surgery input appreciated: CXR 07/30 with increasing pneumonitis- unfortunately likely due to lymphovascular invasion Continue Cefepim and Flagyl for now and stop after 7 days. Overall poor prognosis, will initiate goal of care conversation with him, oncology and family, hospic care maybe a reasonable Repeat CXR -unchanged d/w oncology and pulm: will repeat chest ct -might have component of amlignancy on right side, acute hypokalemia, resolved follolow BMP Transaminitis LFT improving left lower rib cage pain with elevated lft's abd us:Cholelithiasis and biliary sludge with borderline wall thickening and mildly prominent common bile duct. d/w surgery -? acute cholecystis -add antibiotics GI following as MRCP--Biliary sludge. 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 No gross choledocholithiasis. Multifocal pneumonia. 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 monitor HypOtension thought to be Possibly secondary to hemodynamic changes post pneumonectomy, and temporaly required vasopressors. Continue Midodrine as needed for low BP moderate malnutrition: continue supplements, encourage PO intake dvt prophylax s/c heaprin ongoing need: Status post pneumonectomy, still requires oxygen, also has right- sided lung edema-on iv lasix ,lung biopsy showing Adenocarcinoma s/p pneumoectomy pending Oncology kendall l Quality Stroke Does the patient have a stroke diagnosis?: No VTE Prior VTE?: No VTE Risk Level:: Medical - moderate - high VTE Device Contraindication: Treatment Not Indicated VTE Drug Contraindication: N/A - Med Ordered
--- NOTE | 2024-08-04 17:18 | HO.WOUND ---
Wound Consult: Follow up 59yr old?[place] [facility] [place] - See progress notes and H&P for detailed history.? Wound consult follow up for coccyx wound.? Patient agreeable to assessment and photo documentation.? Pulsate Bed ordered yesterday and patient reports increase in comfort since new bed transition. Patient appears malnourished reports significant weight loss - current inpatient weight loss noted - provider notified and direct care nurse notified. Nutrition following and recommendations in place. Patient and I discussed his lack of appetite - he reports he is often to short of breath to eat. He reports he prefers the strawberry ensure these are currently on back order - advised to drink options available. Patient expressed fears of dying and his prognosis - offered spiritual consult - he refused. He was able to identify his familial support system - pictures are long his wall. Supportive listening was provided. The patient expressed fear and anxiety which he was assured were normal given his current diagnosis and current state of health. Unfortunately the patient appears sick / unwell and there is concern for wound worsening given his overall clinical picture. The wound bed remains with yellow slough the periwound is significantly improved. Topical treatment changed to Medihoney in an effort to increase autolytic debridement. Will continue to follow. Coccyx - Off Load Pressure with Q2 hr turns and use of pillows - Cleanse with PH balance spray or wipes, pat dry. ?Apply layer of Medihoney to wound bed. May cover with dry 2x2 then foam dressing to aid in pressure redistribution. We discussed patient refusal to reposition to left side give the dehiscence to his surgical site. Providers aware. Patient encouraged to allow for shifts and repositions education provided. Overall his respiratory and pain to the surgical site limit his options for repositions - will continue to offer and reposition as appropriate. Coccyx Etiology: Deetp Tissue Injury Measurements: 2cm x 3cm x 0.2cm Wound Bed: pale wound bed with purple nonblanchable areas Drainage / Odor: none Edges: ? irregular Claudia wound: ?red pink blanchable tissue - No Induration, Fluctuance or Warmth noted Pain: painful to assessment Goals of Treatment: ? off load pressure and foam dressing to air in pressure redistribution Nutrition following with supplements in place. Recommendations: 1. Turn and Reposition every 2 hours and as needed for patient comfort.? Use pillows or wedges to support off loading positions. 2. Off Load all bony prominences with use of pillows and heel boots if needed.? Apply Preventative foams where needed. ? 3. Monitor for incontinence and moisture control, use barrier creams when needed for prevention and treatment. 4. Provide adequate and supplemental nutrition.? 5. Continue low air loss mattress. 6. When applicable maintain blood glucose levels per Providers order. Coccyx - Off Load Pressure with Q2 hr turns and use of pillows - Cleanse with PH balance spray or wipes, pat dry. ?Apply thin layer of Triad to wound bed. Do not remove all of paste between applications as this may cause further skin damage.? Cover with foam dressing to aid in off loading and protection from friction. Change every 5 days and PRN. Re-consult wound care Nurse for wound deterioration or wound changes.
[2024-08-05] VITALS (11 sets, daily range): BP systolic 99–129; BP diastolic 54–76; PULSE 57–83; RESP 16–20; TEMP 36–37.1; O2SAT 93–100; BMI 17.4
[2024-08-05] MEDS: cefEPime HCl/D5W 2 GM/50 ML PIGGYBACK IV ×4 (01:27→22:32)
[2024-08-05] MEDS: metroNIDAZOLE 500 MG TABLET PO ×3 (01:27→16:44)
[2024-08-05] MEDS: oxyCODONE HCl Immed Release 5 MG TABLET 10 MG PO ×5 (01:31→22:33)
[2024-08-05] MEDS: hydrOXYzine HCL 25 MG TABLET PO ×2 (01:32→22:40)
[2024-08-05] MEDS: Midodrine HCl 5 MG TABLET 15 MG PO ×4 (05:11→19:48)
[2024-08-05] MEDS: Acetaminophen 325 MG TABLET 650 MG PO ×3 (05:11→16:44)
[2024-08-05] MEDS: 0.9 % Sodium Chloride Flush 10 ML SYRINGE 5 ML IVFLUSH ×3 (08:00→22:43)
[2024-08-05] MEDS: guaiFENesin LA 600 MG TAB.ER.12H PO ×2 (08:01→19:49)
[2024-08-05] MEDS: Docusate Sodium 100 MG CAPSULE PO (08:02)
[2024-08-05] MEDS: Heparin Sodium,Porcine 5,000 UNIT/ML VIAL 5000 UNIT SUBCUT ×2 (08:02→19:50)
[2024-08-05] MEDS: polyethylene glycoL 3350 17 GM POWD.PACK PO (08:03)
[2024-08-05] MEDS: Furosemide 40 MG/4 ML VIAL IVPUSH (08:41)
--- NOTE | 2024-08-05 10:28 | MHC.CM.PN ---
Per ROUNDS discussion, Patient is not yet medically cleared for dc (IV ABT, IV Lasix); PT is recommending Inpatient Pulmonary Rehab and CM will continue to follow.
--- NOTE | 2024-08-05 11:45 | PC.NURSE ---
patient medicated with 10mg oxycodone at 0801 for pain. Reassessed at 0900 with reduction in reported pain score of 5/10. Some what effective.
--- NOTE | 2024-08-05 13:06 | MHC.CLN ---
F/U LUNG BIOPSY SHOWS ADENOCARCINOMA MOST RECENT PO APPROX 50%, BUT ALSO PO SOMEWHAT DECREASED OVERALL DIET RX:REGULAR PT DISLIKES GELATEIN -THIS RIPENING ROOM HAND D/C AND NOTED IN PREFERENCES PT REQUESTING ENSURE ONLY [facility] CONTINUE TO PROVIDE SUPPLEMENTS PT ACCEPTS TO PROMOTE WOUND HEALING: ENSURE BID PROVIDES 700KCALS, 40G PROTEIN MAGIC CUP BID PROVIDES 580KCALS, 18G PROTEIN MONITOR PO INTAKE AND ENCOURAGE SUPPLEMENTS
--- NOTE | 2024-08-05 15:43 | HO.PM.IMPN ---
Subjective Subjective Date of Service: 08/05/24 Interval History: Status post pneumonectomy Adenocarcinoma lung Hypoxemic respiratory failure Review of Systems Shortness of breaths seems similar, on high-flow Physical Exam Vital Signs: Vital Signs: Last Vital Signs Temp 96.8 F 08/05/24 15:25 Pulse 80 08/05/24 15:25 Resp 18 08/05/24 15:25 BP 116/76 08/05/24 15:25 Pulse Ox 100 08/05/24 15:25 O2 Del Method High Flow Nasal C annula 08/05/24 15:25 O2 Flow Rate 50 08/05/24 15:25 FiO2 40 08/05/24 15:25 BMI result Body Mass Index 17.4 Constitutional : Awake, talkative, no distress Neck : Normal inspection, Supple Cardiovascular : RRR, no JVP, no lower extremity edema Respiratory : decrease bilateral air entry mainly on left side, right sided basal crackles, no significant wheezes Gastrointestinal: soft, lax, Normal bowel sounds, Non tender Skin : Warm, Dry Neurological : Alert & oriented x3, No focal deficit Objective Data Active Medications Acetaminophen (Acetaminophen 325 Mg Tablet) 650 mg PO Q6H PRN PRN Reason: Pain, Moderate(Pain Scale 4-6) Last Admin: 08/05/24 11:38 Dose: 650 mg Documented By: NIRAV Benzonatate (Benzonatate 100 Mg Capsule) 100 mg PO TID PRN PRN Reason: Cough Last Admin: 08/04/24 12:05 Dose: 100 mg Documented By: ADRIAN Docusate Sodium (Docusate Sodium 100 Mg Capsule) 100 mg PO BID [facility] Last Admin: 08/05/24 08:02 Dose: 100 mg Documented By: NIRAV Furosemide (Furosemide 40 Mg/4 Ml Vial) 40 mg IVPUSH DAILY [facility]; Protocol Last Admin: 08/05/24 08:41 Dose: 40 mg Documented By: NIRAV Guaifenesin (Guaifenesin La 600 Mg Tab.Er.12h) 600 mg PO BID [facility] Last Admin: 08/05/24 08:01 Dose: 600 mg Documented By: NIRAV Heparin Sodium (Porcine) (Heparin Sodium,Porcine 5,000 Unit/Ml Vial) 5,000 unit SUBCUT Q12H [facility] Last Admin: 08/05/24 08:02 Dose: 5,000 unit Documented By: NIRAV Hydroxyzine HCl (Hydroxyzine Hcl 25 Mg Tablet) 25 mg PO Q6H PRN PRN Reason: anxiety/restlessness Last Admin: 08/05/24 01:32 Dose: 25 mg Documented By: GERTRUDE Comments: requested for anxiety. Cefepime HCl (Maxipime) 2 gm in 50 mls @ 100 mls/hr IV Q8H [facility] Last Infusion: 08/05/24 08:25 Dose: Infused Documented By: MO Metronidazole (Metronidazole 500 Mg Tablet) 500 mg PO Q8H [facility] Last Admin: 08/05/24 08:02 Dose: 500 mg Documented By: NIRAV Midodrine (Midodrine Hcl 5 Mg Tablet) 15 mg PO Q6H [facility] Last Admin: 08/05/24 08:01 Dose: 15 mg Documented By: NIRAV Ondansetron HCl (Ondansetron Hcl 4 Mg/2 Ml Vial) 4 mg IVPUSH Q8H PRN PRN Reason: Nausea and Vomiting Last Admin: 07/18/24 21:28 Dose: 4 mg Documented By: KIARRA Oxycodone HCl (Oxycodone Hcl Immed Release 5 Mg Tablet) 10 mg PO Q4H PRN PRN Reason: Pain, Severe (Pain Scale 7-10) Last Admin: 08/05/24 13:38 Dose: 10 mg Documented By: NIRAV Polyethylene Glycol (Polyethylene Glycol 3350 17 Gm Powd.Pack) 17 gm PO DAILY [facility] Last Admin: 08/05/24 08:03 Dose: 17 gm Documented By: NIRAV Sodium Biphosphate/Sodium Phosphate (Sodium Phosphate,[place]-Dibasic 133 Ml Enema) 133 ml DC ONCE PRN PRN Reason: Constipation Last Admin: 07/25/24 18:05 Dose: 133 ml Documented By: CRYSTAL Sodium Chloride (0.9 % Sodium Chloride Flush 10 Ml Syringe) 5 ml IVFLUSH QSHIFT [facility] Last Admin: 08/05/24 08:00 Dose: 5 ml Documented By: NIRAV Labs 08/03/24 08:01 08/03/24 08:01 Labs: Laboratory Results - last 24 hr 08/04/24 14:49 Carcinoembryonic Ag 15.60 Assessment and Plan (1) Adenocarcinoma, lung: Status: Acute (2) Status post pneumonectomy: Status: Acute (3) Acute hypoxic respiratory failure: Status: Acute Plan 59-year-old gentleman, recent 30+ pack-year smoker admitted on 06/14/2024 with hypoxia and multifocal pneumonia with abscesses. Patient has been treated with empiric antibiotics with essentially negative cultures. His bronchoscopic lavage also had essentially negative cultures. However, clinically his pulmonary abscess got worse an he had an attempted left lower lobectomy on 07/17/2024, however he required completion left pneumonectomy, now being monitored in the intensive care unit. Extubated 07/18/2024. 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 decompensated on 07/30 and was put on Highflow and remains on highflow incentive spirometry, mobilization, chest percussion therapy, taper oxygen down as tolerated Thoracic surgery input appreciated: CXR 07/30 with increasing pneumonitis- unfortunately likely due to lymphovascular invasion Repeat CXR -unchanged Continue Cefepim and Flagyl Overall poor prognosis, will initiate goal of care conversation with him, oncology and family, hospic care maybe a reasonable d/w oncology and pulm: chest ct -Post left pneumonectomy there is moderate fluid in the left hemithorax with ipsilateral mediastinal shift.There is airspace consolidation with cystic changes and right lower lobe. Chronic interstitial thickening, cystic changes and emphysematous changes are seen in the right upper lobe . lung biopsy result showing Mixed invasive mucinous and non-mucinous adenocarcinoma, G3 oncology and pulm followup for plan. acute hypokalemia, resolved follolow BMP Transaminitis LFT improving left lower rib cage pain with elevated lft's abd us:Cholelithiasis and biliary sludge with borderline wall thickening and mildly prominent common bile duct. d/w surgery -? acute cholecystis -add antibiotics GI following as MRCP--Biliary sludge. 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 No gross choledocholithiasis. Multifocal pneumonia. 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 monitor HypOtension thought to be Possibly secondary to hemodynamic changes post pneumonectomy, and temporaly required vasopressors. Continue Midodrine as needed for low BP moderate malnutrition: continue supplements, encourage PO intake DTi Coccyx area ( please see note from wound care 08/04/24): Turn and Reposition every 2 hours and as needed for patient comfort.? Use pillows or wedges to support off loading positions. Off Load all bony prominences with use of pillows and heel boots if needed.? Apply Preventative foams where needed. ? Monitor for incontinence and moisture control, use barrier creams when needed for prevention and treatment. Provide adequate and supplemental nutrition.? Continue low air loss mattress. When applicable maintain blood glucose levels per Providers order. Coccyx - Off Load Pressure with Q2 hr turns and use of pillows - Cleanse with PH balance spray or wipes, pat dry. ?Apply thin layer of Triad to wound bed. Do not remove all of paste between applications as this may cause further skin damage.? Cover with foam dressing to aid in off loading and protection from friction. Change every 5 days and PRN. dvt prophylax: s/c heaprin Quality Stroke Does the patient have a stroke diagnosis?: No VTE Prior VTE?: No VTE Risk Level:: Medical - moderate - high VTE Device Contraindication: Treatment Not Indicated VTE Drug Contraindication: N/A - Med Ordered
--- NOTE | 2024-08-05 15:59 | HO.WOUND ---
Wound Consult: Follow up 59yr old?male admitted to [facility] on 06/14/24 - See progress notes and H&P for detailed history.? Wound consult follow up for coccyx wound.? Patient agreeable to assessment and photo documentation.? Pulsate Bed continues to provide comfort, however overall patient continues to endorse pain and anxiety. Patient reports he has been drinking the ensure provided since yesterdays consultation. He reports he continues to feel less hopeful given his over all condition - Provider aware direct care nursing team aware - supportive listening provided. He was again offered supportive services he refused at this time. Left back incision site dressing changed - he tolerated well - incision continues to have area of dehiscence and yellow slough - saline moist dressing applied per surgery recommendations. Coccyx periwound continues to improve and the wound bed remains with adherent thin veil of yellow slough - medihoney appears to offer slight improvement in one application - recommend continuing with application daily. Will continue to follow. no new topical recommendations needed at this time. Details from previous assessment: Patient appears malnourished reports significant weight loss - current inpatient weight loss noted - provider notified and direct care nurse notified. Nutrition following and recommendations in place. Patient and I discussed his lack of appetite - he reports he is often to short of breath to eat. He reports he prefers the strawberry ensure these are currently on back order - advised to drink options available. Patient expressed fears of dying and his prognosis - offered spiritual consult - he refused. He was able to identify his familial support system - pictures are long his wall. Supportive listening was provided. The patient expressed fear and anxiety which he was assured were normal given his current diagnosis and current state of health. Unfortunately the patient appears sick / unwell and there is concern for wound worsening given his overall clinical picture. The wound bed remains with yellow slough the periwound is significantly improved. Topical treatment changed to Medihoney in an effort to increase autolytic debridement. Will continue to follow. Coccyx - Off Load Pressure with Q2 hr turns and use of pillows - Cleanse with PH balance spray or wipes, pat dry. ?Apply layer of Medihoney to wound bed. May cover with dry 2x2 then foam dressing to aid in pressure redistribution. We discussed patient refusal to reposition to left side give the dehiscence to his surgical site. Providers aware. Patient encouraged to allow for shifts and repositions education provided. Overall his respiratory and pain to the surgical site limit his options for repositions - will continue to offer and reposition as appropriate. Coccyx Etiology: Deetp Tissue Injury Measurements: 2cm x 3cm x 0.2cm Wound Bed: pale wound bed with purple nonblanchable areas Drainage / Odor: none Edges: ? irregular Claudia wound: ?red pink blanchable tissue - No Induration, Fluctuance or Warmth noted Pain: painful to assessment Goals of Treatment: ? off load pressure and foam dressing to air in pressure redistribution Nutrition following with supplements in place. Recommendations: 1. Turn and Reposition every 2 hours and as needed for patient comfort.? Use pillows or wedges to support off loading positions. 2. Off Load all bony prominences with use of pillows and heel boots if needed.? Apply Preventative foams where needed. ? 3. Monitor for incontinence and moisture control, use barrier creams when needed for prevention and treatment. 4. Provide adequate and supplemental nutrition.? 5. Continue low air loss mattress. 6. When applicable maintain blood glucose levels per Providers order. Coccyx - Off Load Pressure with Q2 hr turns and use of pillows - Cleanse with PH balance spray or wipes, pat dry. ?Apply thin layer of Triad to wound bed. Do not remove all of paste between applications as this may cause further skin damage.? Cover with foam dressing to aid in off loading and protection from friction. Change every 5 days and PRN. Re-consult wound care Nurse for wound deterioration or wound changes.
--- NOTE | 2024-08-05 16:00 | P.CDIM_ITS ---
PROVIDER RESPONSE TEXT: To clarify, the appropriate diagnosis supported by the clinical indicators: Deep tissue injury coccyx: DTI cocyx QUERY TEXT: PHYSICIAN'S DOCUMENTATION REQUEST Date of Query: 08/05/2024 12:56 PM EDT Patient Name: RADHA WHITMORE Admit Date: 06/14/2024 Dear Rik Nava MD, A review of the medical record indicates additional documentation may be needed. Please review below and update the documentation accordingly. Clinical Indicators: Wound care assessment notes: Deep tissue injury coccyx Foam dressing. Based on the above, could you please provide further information regarding the ulcer/wound/injury: Deep tissue injury coccyx possible, probable, cannot rule out, suspected etc. Other specified Other (explain) Clinically unable to determine (explain) Thank you, Monse Blackman, CCS, CDIS Use of terms such as suspected, likely, concern for, or probable (associated with a specific diagnosi s that is being evaluated, monitored, or treated as if it exists) are acceptable and can be coded in the inpatient se tting, when documented at the time of discharge. Please use your independent medical judgment in providing your response. THIS QUERY IS PART OF THE PERMANENT MEDICAL RECORD
--- NOTE | 2024-08-05 16:46 | P.PNHO-ONC_ITS ---
Medical Summary - Medical Summary Date of Service: 08/05/24 Chief complaint: SOB Primary Care Provider: None Physician Public Health Staff Nurse Utilized?: No - Vincentian Speaking Interval History Interval history: Patient underwent left pneumonectomy on 07/17/2024. He got extubated on the , developed flash pulmonary edema and was treated with Lasix in the ICU. 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 He remains on high-flow oxygen. He had CT chest performed yesterday. Review of Systems - Constitutional Reports as per HPI - Neurologic Reports no additional neurologic complaints, Denies focal weakness, Denies memory loss, Denies seizure-like activity [facility] Medical History: Medical History (Last Reviewed 07/24/24 @ 12:40 by Franky Roche MD) Acute respiratory disease Cough Wheezing on auscultation Family History: Family History (Last Reviewed 07/24/24 @ 12:40 by Franky Roche MD) Father Lung cancer Mother Unknown family medical history Family history: reviewed and not pertinent Social History: Social History (Last Reviewed 07/24/24 @ 12:40 by Franky Roche MD) Living Situation History: Household Members: Family Household Members Other:: mother and disabled brother Housing: Apartment Do you presently have visiting nurse or other home services: Yes Tobacco History: Patient Tobacco Use Status: Former Tobacco user Tobacco use type: Cigarette e-Cigarette/Vaping Use: Never Used Second Hand Smoke Exposure: No Occupation Assessmet: service: No Home Medications and Allergies Current Medications: Current Medications Acetaminophen (Acetaminophen 325 Mg Tablet) 650 mg PO Q6H PRN PRN Reason: Pain, Moderate(Pain Scale 4-6) Last Admin: 08/05/24 11:38 Dose: 650 mg Benzonatate (Benzonatate 100 Mg Capsule) 100 mg PO TID PRN PRN Reason: Cough Last Admin: 08/04/24 12:05 Dose: 100 mg Docusate Sodium (Docusate Sodium 100 Mg Capsule) 100 mg PO BID [facility] Last Admin: 08/05/24 08:02 Dose: 100 mg Furosemide (Furosemide 40 Mg/4 Ml Vial) 40 mg IVPUSH DAILY [facility]; Protocol Last Admin: 08/05/24 08:41 Dose: 40 mg Guaifenesin (Guaifenesin La 600 Mg Tab.Er.12h) 600 mg PO BID [facility] Last Admin: 08/05/24 08:01 Dose: 600 mg Heparin Sodium (Porcine) (Heparin Sodium,Porcine 5,000 Unit/Ml Vial) 5,000 unit SUBCUT Q12H [facility] Last Admin: 08/05/24 08:02 Dose: 5,000 unit Hydroxyzine HCl (Hydroxyzine Hcl 25 Mg Tablet) 25 mg PO Q6H PRN PRN Reason: anxiety/restlessness Last Admin: 08/05/24 01:32 Dose: 25 mg Cefepime HCl (Maxipime) 2 gm in 50 mls @ 100 mls/hr IV Q8H [facility] Last Admin: 08/05/24 15:50 Dose: 100 mls/hr Metronidazole (Metronidazole 500 Mg Tablet) 500 mg PO Q8H [facility] Last Admin: 08/05/24 08:02 Dose: 500 mg Midodrine (Midodrine Hcl 5 Mg Tablet) 15 mg PO Q6H [facility] Last Admin: 08/05/24 15:48 Dose: 15 mg Ondansetron HCl (Ondansetron Hcl 4 Mg/2 Ml Vial) 4 mg IVPUSH Q8H PRN PRN Reason: Nausea and Vomiting Last Admin: 07/18/24 21:28 Dose: 4 mg Oxycodone HCl (Oxycodone Hcl Immed Release 5 Mg Tablet) 10 mg PO Q4H PRN PRN Reason: Pain, Severe (Pain Scale 7-10) Last Admin: 08/05/24 13:38 Dose: 10 mg Polyethylene Glycol (Polyethylene Glycol 3350 17 Gm Powd.Pack) 17 gm PO DAILY [facility] Last Admin: 08/05/24 08:03 Dose: 17 gm Sodium Biphosphate/Sodium Phosphate (Sodium Phosphate,[place]-Dibasic 133 Ml Enema) 133 ml [place] ONCE PRN PRN Reason: Constipation Last Admin: 07/25/24 18:05 Dose: 133 ml Sodium Chloride (0.9 % Sodium Chloride Flush 10 Ml Syringe) [facility] Last Admin: 08/05/24 08:00 Dose: 5 ml Home Medications ?Medication ?Instructions ?Recorded ?Confirmed ?Type albuterol sulfate 90 mcg/actuation 2 puff inhalation Q6H PRN 06/14/24 06/14/24 History aerosol inhaler shortness of breath or wheezing ibuprofen 400 mg tablet 400 mg PO Q8H PRN Pain 06/14/24 06/14/24 History Allergies Allergy/AdvReac Type Severity Reaction Status Date / Time amoxicillin Allergy Intermediate Rash Verified 07/17/24 06:35 penicillin G Allergy Intermediate Rash Verified 07/17/24 06:35 penicillin V Allergy Intermediate Rash Verified 07/17/24 06:35 Penicillins [PENICILLINS] Allergy Intermediate Rash Verified 07/17/24 06:35 tomato Allergy Intermediate Rash Verified 07/17/24 06:35 clindamycin Allergy Intermediate rash Uncoded 07/05/24 07:24 Exam Vital signs: Vital Signs Temp 96.8 F 08/05/24 15:25 Pulse 80 08/05/24 15:25 Resp 18 08/05/24 15:25 BP 116/76 08/05/24 15:25 Pulse Ox 100 08/05/24 15:25 O2 Del Method High Flow Nasal Cannula 08/05/24 15:25 O2 Flow Rate 50 08/05/24 15:25 FiO2 40 08/05/24 15:25 Intake & Output 08/04/24 08/05/24 08/05/24 18:59 06:59 18:59 Intake Total 900 / 1670 770 / 1670 650 / 650 Output Total 750 / 1350 600 / 1350 1000 / 1000 Balance 150 / 320 170 / 320 -350 / -350 Urine Output (Average ml/kg/hr) 1.16 0.91 1.52 Intake: Intake, Oral Amount 800 / 1520 720 / 1520 600 / 600 Intake, IV Amount 100 / 150 50 / 150 50 / 50 cefEPime HCl/D5W 2 gm In 50 ml 100 / 150 50 / 150 50 / 50 @ 100 mls/hr IV Q8H [facility] Rx#: [id number] Output: Output, Urine Amount 600 / 600 1000 / 1000 Output, Urine Amount (Catheter) 750 / 750 Urethral 750 / 750 Other: Meal Refused No No NPO No No Breakfast % Eaten 10% 50% Lunch % Eaten 0% 50% Dinner % Eaten 75% Eating (Feeding) Ability Independent Number of Bowel Movements 1 1 Urine Urinal trevino F/C Urine Color Concentrated Yellow Yellow Last Bowel Movement 08/04/24 08/04/24 08/04/24 Stool Incontinent Bedside Commode Stool Amount Large Large Stool Color Brown Brown Stool Consistency Loose Watery Weight 54 kg 55 kg [place] Weight in Grams [id number] Weight 55 kg BMI result Body Mass Index 17.4 - Constitutional Present: no acute distress, thin - Routine HEENT Exam Head: Present: normal inspection - Routine Respiratory Exam Absent: accessory muscle use - Routine Cardiovascular Exam Cardiovascular: Present: S1, S2 - Routine Extremities Exam Absent: pedal edema - Routine Skin Exam Present: intact - Routine Neurological Exam Present: alert, oriented X3 - Detailed Neurological Exam: Coma Scale Eye Opening: Spontaneous (4) Data - Labs CBC & Chem 7: 08/03/24 08:01 08/03/24 08:01 - Imaging Radiologist's impression: ITS Impressions Chest X-Ray 07/03/24 12:32 IMPRESSION: 1. Extensive parenchymal opacification left greater than right lungs with underlying COPD. Compared with the recent chest CT, there has been mild improvement in the right upper lung region but otherwise no change. (Given the appearance on the recent chest CT, bilateral lung abscesses are suspected). 2. No pneumothorax. 3. Probable small right effusion. No definite left effusion. Electronically signed by: Carlos Moya MD 07/03/2024 01:00 PM EDT RP Chest X-Ray 07/15/24 10:57 IMPRESSION: Extensive airspace opacity in the right mid to lower lung zone and involving the entire left lung as seen previously, compatible with pneumonia. There are air/fluid levels in the left lower lobe as noted on chest CT, compatible with abscess formation. Electronically signed by: Hero Zavala MD 07/15/2024 11:42 AM EDT RP Chest X-Ray 07/17/24 10:50 IMPRESSION: 1. Endotracheal tube in good position, with second luminal tube extending into the left mainstem bronchus. 2. Left-sided chest tube in the left apex. 3. Left pneumonectomy with gas throughout the left thoracic cavity. Mild left mediastinal shift. 4. Opacity throughout the aerated right lung, minimally less confluent than on the prior radiograph. Above findings communicated to Dr. Gee directly via phone call at 11:24 AM, 07/17/2024. Electronically signed by: Carlos Moya MD 07/17/2024 11:26 AM EDT Chest X-Ray 07/20/24 16:18 IMPRESSION: No significant interval change since earlier same day at 6:04 AM. Electronically signed by: Carlos Moya MD 07/20/2024 04:50 PM EDT RP Chest X-Ray 07/22/24 07:15 IMPRESSION: Atelectatic/collapsed left lung with stable hydropneumothorax, left side. Pulmonary edema versus ARDS versus multifocal pneumonia versus pneumonitis, right lung. Overall no gross change. Electronically signed by: Candelario Patel MD 07/22/2024 08:01 AM EDT RP Abdomen Ultrasound 07/24/24 09:21 IMPRESSION: Cholelithiasis and biliary sludge with borderline wall thickening and mildly prominent common bile duct. 1.1 cm Bosniak type I cyst, right kidney. Electronically signed by: Candelario Patel MD 07/24/2024 09:47 AM EDT RP Cholangiopancreatography MRI 07/27/24 12:01 IMPRESSION: Biliary sludge. 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 No gross choledocholithiasis. Multifocal pneumonia. 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 Electronically signed by: Candelario Patel MD 07/28/2024 08:05 AM EDT RP Chest X-Ray 07/28/24 09:45 IMPRESSION: 1. Slightly more confluent airspace disease throughout the hyperaerated right lung. Electronically signed by: Carlos Moya MD 07/28/2024 10:48 AM EDT RP Chest X-Ray 07/30/24 07:15 IMPRESSION: 1. Slightly less pneumatization in the left superior thorax, expected postoperative evolution. 2. Stable appearing diffuse pneumonitis throughout the right lung most confluent mid and lower region. Electronically signed by: Carlos Moya MD 07/30/2024 08:15 AM EDT RP Chest X-Ray 08/03/24 11:18 IMPRESSION: No gross change Electronically signed by: Candelario Patel MD 08/03/2024 01:13 PM EDT RP Chest CT 08/04/24 15:27 IMPRESSION: Post left pneumonectomy there is moderate fluid in the left hemithorax with ipsilateral mediastinal shift. There is airspace consolidation with cystic changes and right lower lobe. Chronic interstitial thickening, cystic changes and emphysematous changes are seen in the right upper lobe . Fleischner guidelines were followed. Electronically signed by: Orlando Banks MD 08/04/2024 05:08 PM EDT RP Assessment and Plan Patient Active problem list reviewed?: Yes (1) Adenocarcinoma, lung Status: Acute Assessment and plan: 1. This is a 59-year-old male, 30+ pack-year smoking history was admitted on 06/14/2024 with hypoxia and multifocal pneumonia with abscess. After prolonged course of antibiotics, he underwent an attempted left lower lobectomy on 07/17/2024 which was converted to left pneumonectomy. 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 Positive soft tissue margin. One hilar lymph node positive for adenocarcinoma. Tumor size 16 cm, numerous multiple tumor nodules in both lobes. Parenchyma margin, tumor widely present at soft tissue margin in the lower lobe. Pathological stage pT4 (M) pN1 with positive margin. PD-L1 less than 1%. Molecular studies are pending. At this time he is rather frail and malnourished. He remains on high-flow oxygen. CT chest performed 08/04/2024 shows post left pneumonectomy changes. There is airspace consolidation with cystic changes in the right lower lobe, chronic interstitial thickening, cystic changes and emphysematous changes in the right upper lobe. Appearance of the right lung is similar to left lung and may also have cancer, discovery manager has also reviewed images and feels the consolidative changes is most likely secondary to malignancy rather than infectious process. He has been on antibiotics for many weeks. If he has any molecular markers such as EGFR or alk mutation he would be eligible to receive oral therapy. Overall prognosis is quite poor. All of the above explained to the patient. Thank you. - Time Spent With Patient Time Spent with Patient (in minutes): 15
[2024-08-05] MEDS: Benzonatate 100 MG CAPSULE PO (19:54)
[2024-08-06] VITALS (12 sets, daily range): BP systolic 95–124; BP diastolic 55–88; PULSE 1–89; RESP 18–22; TEMP 36.2–37.1; O2SAT 93–97; BMI 17.4
[2024-08-06] MEDS: metroNIDAZOLE 500 MG TABLET PO ×3 (00:21→16:07)
[2024-08-06] MEDS: Midodrine HCl 5 MG TABLET 15 MG PO ×4 (02:43→20:12)
[2024-08-06] MEDS: oxyCODONE HCl Immed Release 5 MG TABLET 10 MG PO ×5 (02:43→20:12)
[2024-08-06] MEDS: cefEPime HCl/D5W 2 GM/50 ML PIGGYBACK IV ×2 (06:41→15:20)
[2024-08-06] MEDS: 0.9 % Sodium Chloride Flush 10 ML SYRINGE 5 ML IVFLUSH (08:51)
[2024-08-06] MEDS: guaiFENesin LA 600 MG TAB.ER.12H PO ×2 (08:52→20:13)
[2024-08-06] MEDS: Heparin Sodium,Porcine 5,000 UNIT/ML VIAL 5000 UNIT SUBCUT ×2 (08:52→20:14)
[2024-08-06] MEDS: Furosemide 40 MG/4 ML VIAL IVPUSH (08:53)
--- NOTE | 2024-08-06 10:38 | MHC.CM.PN ---
Per ROUNDS discussion, Patient has been referred to [facility]. CM will follow.
--- NOTE | 2024-08-06 11:35 | PC.NURSE ---
transitioned from high flow 40 liters 40 % to 4 liters via nasal cannula . Oxygen saturation 94% on NC at rest
--- NOTE | 2024-08-06 13:42 | P.CDIM_ITS ---
PROVIDER RESPONSE TEXT: To clarify, the appropriate diagnosis supported by the clinical indicators: Other (explain): pneumonitis unspecified QUERY TEXT: PHYSICIAN'S DOCUMENTATION REQUEST Date of Query: 08/06/2024 09:38 AM EDT Patient Name: RADHA WHITMORE Admit Date: 06/14/2024 Dear Rik Nava MD, A review of the medical record indicates additional documentation may be needed. Please review below and update the documentation accordingly. Clinical Indicators: Progress note 08/04/24 - CXR 07/30 with increasing Pneumonitis. Thoracic surgery input appreciated. Incentive spirometry, mobilization, chest percussion therapy, taper oxygen down as tolerated. O2 supplement for hypoxia and dyspnea, crackles in right lung, left lung diminished. Continue Cefepime, repeat CXR unchanged. Based on the above, could you clarify in the Progress Notes further specificity to the noted Pneumoni tis within the medical record, if known: Aspiration Pneumonitis Please indicate substance such as food or vomitus, oils, or other solids or liquids Pneumonitis due to drug induced, chemical, noninfectious, interstitial etc. Other (explain) Clinically unable to determine (explain) Thank you, Monse Blackman, CCS, CDIS Use of terms such as suspected, likely, concern for, or probable (associated with a specific diagnosi s that is being evaluated, monitored, or treated as if it exists) are acceptable and can be coded in the inpatient se tting, when documented at the time of discharge. Please use your independent medical judgment in providing your response. THIS QUERY IS PART OF THE PERMANENT MEDICAL RECORD
[2024-08-06] MEDS: Acetaminophen 325 MG TABLET 650 MG PO (14:27)
--- NOTE | 2024-08-06 18:35 | P.PNIM_ITS ---
Subjective Subjective Date of Service: 08/06/24 Interval History: Status post pneumonectomy Adenocarcinoma lung Hypoxemic respiratory failure Review of Systems Review of Systems: Yes all other systems are reviewed and are negative Physical Exam 2 Vital Signs: Vital Signs: Last Vital Signs Temp 98.1 F 08/06/24 16:00 Pulse 86 08/06/24 16:00 Resp 18 08/06/24 16:00 BP 124/69 08/06/24 16:00 Pulse Ox 95 08/06/24 16:00 O2 Del Method Nasal Cannula 08/06/24 16:00 O2 Flow Rate 4 08/06/24 16:00 FiO2 40 08/06/24 08:00 BMI result Body Mass Index 17.4 Constitutional : Awake, talkative, no distress Neck : Normal inspection, Supple Cardiovascular : RRR, no JVP, no lower extremity edema Respiratory : decrease bilateral air entry mainly on left side, right sided basal crackles, no significant wheezes Gastrointestinal: soft, lax, Normal bowel sounds, Non tender Skin : Warm, Dry Neurological : Alert & oriented x3, No focal deficit Objective Data Active Medications Acetaminophen (Acetaminophen 325 Mg Tablet) 650 mg PO Q6H PRN PRN Reason: Pain, Moderate(Pain Scale 4-6) Last Admin: 08/06/24 14:27 Dose: 650 mg Documented By: NIRAV Benzonatate (Benzonatate 100 Mg Capsule) 100 mg PO TID PRN PRN Reason: Cough Last Admin: 08/05/24 19:54 Dose: 100 mg Documented By: GRZEGORZ Docusate Sodium (Docusate Sodium 100 Mg Capsule) 100 mg PO BID [facility] Last Admin: 08/06/24 08:54 Dose: Not Given Documented By: NIRAV Non-Admin Reason: Patient Refused Furosemide (Furosemide 40 Mg/4 Ml Vial) 40 mg IVPUSH DAILY [facility]; Protocol Last Admin: 08/06/24 08:53 Dose: 40 mg Documented By: NIRAV Guaifenesin (Guaifenesin La 600 Mg Tab.Er.12h) 600 mg PO BID [facility] Last Admin: 08/06/24 08:52 Dose: 600 mg Documented By: NIRAV Heparin Sodium (Porcine) (Heparin Sodium,Porcine 5,000 Unit/Ml Vial) 5,000 unit SUBCUT Q12H [facility] Last Admin: 08/06/24 08:52 Dose: 5,000 unit Documented By: INRAV Hydroxyzine HCl (Hydroxyzine Hcl 25 Mg Tablet) 25 mg PO Q6H PRN PRN Reason: anxiety/restlessness Last Admin: 08/05/24 22:40 Dose: 25 mg Documented By: GRZEGORZ Cefepime HCl (Maxipime) 2 gm in 50 mls @ 100 mls/hr IV Q8H [facility] Last Infusion: 08/06/24 16:00 Dose: Infused Documented By: NIRAV Metronidazole (Metronidazole 500 Mg Tablet) 500 mg PO Q8H [facility] Last Admin: 08/06/24 16:07 Dose: 500 mg Documented By: NIRAV Midodrine (Midodrine Hcl 5 Mg Tablet) 15 mg PO Q6H [facility] Last Admin: 08/06/24 14:27 Dose: 15 mg Documented By: NIRAV Ondansetron HCl (Ondansetron Hcl 4 Mg/2 Ml Vial) 4 mg IVPUSH Q8H PRN PRN Reason: Nausea and Vomiting Last Admin: 07/18/24 21:28 Dose: 4 mg Documented By: KIARRA Oxycodone HCl (Oxycodone Hcl Immed Release 5 Mg Tablet) 10 mg PO Q4H PRN PRN Reason: Pain, Severe (Pain Scale 7-10) Last Admin: 08/06/24 16:07 Dose: 10 mg Documented By: NIRAV Polyethylene Glycol (Polyethylene Glycol 3350 17 Gm Powd.Pack) 17 gm PO DAILY [facility] Last Admin: 08/06/24 08:54 Dose: Not Given Documented By: NIRAV Non-Admin Reason: Patient Refused Sodium Biphosphate/Sodium Phosphate (Sodium Phosphate,[place]-Dibasic 133 Ml Enema) 133 ml [place] ONCE PRN PRN Reason: Constipation Last Admin: 07/25/24 18:05 Dose: 133 ml Documented By: CRYSTAL Sodium Chloride (0.9 % Sodium Chloride Flush 10 Ml Syringe) 5 ml IVFLUSH QSHIFT [facility] Last Admin: 08/06/24 17:30 Dose: Not Given Documented By: NIRAV Non-Admin Reason: IV Running Labs 08/03/24 08:01 08/03/24 08:01 Assessment and Plan (1) Acute hypoxic respiratory failure: Status: Acute Assessment and Plan: 59-year-old gentleman, recent 30+ pack-year smoker admitted on 06/14/2024 with hypoxia and multifocal pneumonia with abscesses. Patient has been treated with empiric antibiotics with essentially negative cultures. His bronchoscopic lavage also had essentially negative cultures. However, clinically his pulmonary abscess got worse an he had an attempted left lower lobectomy on 07/17/2024, however he required completion left pneumonectomy, now being monitored in the intensive care unit. Extubated 07/18/2024. 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 decompensated on 07/30 and was put on Highflow and remains on highflow plan: incentive spirometry, mobilization, chest percussion therapy, taper oxygen down as tolerated Thoracic surgery input appreciated: CXR 07/30 with increasing pneumonitis- unfortunately likely due to lymphovascular invasion Repeat CXR -unchanged Continue Cefepim and Flagyl ,Overall poor prognosis taper from high-flow d/w oncology and pulm: chest ct -Post left pneumonectomy there is moderate fluid in the left hemithorax with ipsilateral mediastinal shift.There is airspace consolidation with cystic changes and right lower lobe. Chronic interstitial thickening, cystic changes and emphysematous changes are seen in the right upper lobe . lung biopsy result showing Mixed invasive mucinous and non-mucinous adenocarcinoma, G3 oncology and pulm : Above lung finding possible related with malignancy, taper from high-flow acute hypokalemia, resolved follolow BMP Transaminitis LFT improving left lower rib cage pain with elevated lft's abd us:Cholelithiasis and biliary sludge with borderline wall thickening and mildly prominent common bile duct. d/w surgery -? acute cholecystis -add antibiotics GI following as MRCP--Biliary sludge. 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 No gross choledocholithiasis. Multifocal pneumonia. 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 monitor HypOtension thought to be Possibly secondary to hemodynamic changes post pneumonectomy, and temporaly required vasopressors. Continue Midodrine as needed for low BP moderate malnutrition: continue supplements, encourage PO intake DTi Coccyx area ( please see note from wound care 08/04/24): Turn and Reposition every 2 hours and as needed for patient comfort.? Use pillows or wedges to support off loading positions. Off Load all bony prominences with use of pillows and heel boots if needed.? Apply Preventative foams where needed. ? Monitor for incontinence and moisture control, use barrier creams when needed for prevention and treatment. Provide adequate and supplemental nutrition.? Continue low air loss mattress. When applicable maintain blood glucose levels per Providers order. Coccyx - Off Load Pressure with Q2 hr turns and use of pillows - Cleanse with PH balance spray or wipes, pat dry. ?Apply thin layer of Triad to wound bed. Do not remove all of paste between applications as this may cause further skin damage.? Cover with foam dressing to aid in off loading and protection from friction. Change every 5 days and PRN. dvt prophylax: s/c heaprin Quality Stroke Does the patient have a stroke diagnosis?: No VTE Prior VTE?: No VTE Risk Level:: Medical - moderate - high VTE Device Contraindication: Treatment Not Indicated VTE Drug Contraindication: N/A - Med Ordered
[2024-08-06] MEDS: Benzonatate 100 MG CAPSULE PO (20:12)
[2024-08-07] VITALS (7 sets, daily range): BP systolic 107–152; BP diastolic 56–74; PULSE 70–96; RESP 17–22; TEMP 36.3–36.9; O2SAT 92–97; BMI 17.7
[2024-08-07] MEDS: metroNIDAZOLE 500 MG TABLET PO (00:21)
[2024-08-07] MEDS: oxyCODONE HCl Immed Release 5 MG TABLET 10 MG PO ×6 (00:21→21:40)
[2024-08-07] MEDS: 0.9 % Sodium Chloride Flush 10 ML SYRINGE 5 ML IVFLUSH ×4 (00:22→20:15)
[2024-08-07] MEDS: cefEPime HCl/D5W 2 GM/50 ML PIGGYBACK IV ×2 (00:22→07:13)
[2024-08-07] MEDS: Midodrine HCl 5 MG TABLET 15 MG PO ×4 (03:28→20:14)
[2024-08-07] MEDS: guaiFENesin LA 600 MG TAB.ER.12H PO ×2 (08:37→20:15)
[2024-08-07] MEDS: Furosemide 40 MG/4 ML VIAL IVPUSH (08:37)
[2024-08-07] MEDS: Heparin Sodium,Porcine 5,000 UNIT/ML VIAL 5000 UNIT SUBCUT ×2 (08:37→20:15)
[2024-08-07] MEDS: Benzonatate 100 MG CAPSULE PO (08:39)
[2024-08-07] MEDS: Docusate Sodium 100 MG CAPSULE PO (08:39)
--- NOTE | 2024-08-07 09:55 | HO.WOUND ---
Wound Consult:Follow up attempted Arrival to bedside patient refused assessment as this time - requested I return later in the day for dressing change and assessment. Will attempt to see later today or early next week for follow up. No new topical orders at this time. Details from last assessment: Wound Consult: Follow up 59yr old?male admitted to [facility] [place]24 - See progress notes and H&P for detailed history.? Wound consult follow up for coccyx wound.? Patient agreeable to assessment and photo documentation.? Pulsate Bed continues to provide comfort, however overall patient continues to endorse pain and anxiety. Patient reports he has been drinking the ensure provided since yesterdays consultation. He reports he continues to feel less hopeful given his over all condition - Provider aware direct care nursing team aware - supportive listening provided. He was again offered supportive services he refused at this time. Left back incision site dressing changed - he tolerated well - incision continues to have area of dehiscence and yellow slough - saline moist dressing applied per surgery recommendations. Coccyx periwound continues to improve and the wound bed remains with adherent thin veil of yellow slough - medihoney appears to offer slight improvement in one application - recommend continuing with application daily. Will continue to follow. no new topical recommendations needed at this time. Details from previous assessment: Patient appears malnourished reports significant weight loss - current inpatient weight loss noted - provider notified and direct care nurse notified. Nutrition following and recommendations in place. Patient and I discussed his lack of appetite - he reports he is often to short of breath to eat. He reports he prefers the strawberry ensure these are currently on back order - advised to drink options available. Patient expressed fears of dying and his prognosis - offered spiritual consult - he refused. He was able to identify his familial support system - pictures are long his wall. Supportive listening was provided. The patient expressed fear and anxiety which he was assured were normal given his current diagnosis and current state of health. Unfortunately the patient appears sick / unwell and there is concern for wound worsening given his overall clinical picture. The wound bed remains with yellow slough the periwound is significantly improved. Topical treatment changed to Medihoney in an effort to increase autolytic debridement. Will continue to follow. Coccyx - Off Load Pressure with Q2 hr turns and use of pillows - Cleanse with PH balance spray or wipes, pat dry. ?Apply layer of Medihoney to wound bed. May cover with dry 2x2 then foam dressing to aid in pressure redistribution. We discussed patient refusal to reposition to left side give the dehiscence to his surgical site. Providers aware. Patient encouraged to allow for shifts and repositions education provided. Overall his respiratory and pain to the surgical site limit his options for repositions - will continue to offer and reposition as appropriate. Coccyx Etiology: Deetp Tissue Injury Measurements: 2cm x 3cm x 0.2cm Wound Bed: pale wound bed with purple nonblanchable areas Drainage / Odor: none Edges: ? irregular Claudia wound: ?red pink blanchable tissue - No Induration, Fluctuance or Warmth noted Pain: painful to assessment Goals of Treatment: ? off load pressure and foam dressing to air in pressure redistribution Nutrition following with supplements in place. Recommendations: 1. Turn and Reposition every 2 hours and as needed for patient comfort.? Use pillows or wedges to support off loading positions. 2. Off Load all bony prominences with use of pillows and heel boots if needed.? Apply Preventative foams where needed. ? 3. Monitor for incontinence and moisture control, use barrier creams when needed for prevention and treatment. 4. Provide adequate and supplemental nutrition.? 5. Continue low air loss mattress. 6. When applicable maintain blood glucose levels per Providers order. Coccyx - Off Load Pressure with Q2 hr turns and use of pillows - Cleanse with PH balance spray or wipes, pat dry. ?Apply thin layer of Triad to wound bed. Do not remove all of paste between applications as this may cause further skin damage.? Cover with foam dressing to aid in off loading and protection from friction. Change every 5 days and PRN. Re-consult wound care Nurse for wound deterioration or wound changes.
--- NOTE | 2024-08-07 13:13 | MHC.CLN ---
F/U PO IMPROVED FROM 50-100% DIET RX:REGULAR CONTINUE TO PROVIDE SUPPLEMENTS PT ACCEPTS TO PROMOTE WOUND HEALING: ENSURE BID PROVIDES 700KCALS, 40G PROTEIN (STRAWBERRY ONLY) MAGIC CUP BID PROVIDES 580KCALS, 18G PROTEIN MONITOR PO INTAKE AND ENCOURAGE SUPPLEMENTS
--- NOTE | 2024-08-07 13:57 | P.PNIM_ITS ---
Subjective Subjective Date of Service: 08/07/24 Interval History: Status post pneumonectomy Adenocarcinoma lung Hypoxemic respiratory failure Review of Systems sob and hypoxia improving Review of Systems: Yes all other systems are reviewed and are negative Physical Exam 2 Vital Signs: Vital Signs: Last Vital Signs Temp 98.1 F 08/07/24 07:08 Pulse 87 08/07/24 07:08 Resp 22 H 08/07/24 08:00 BP 130/71 08/07/24 07:08 Pulse Ox 95 08/07/24 07:08 O2 Del Method Nasal Cannula 08/07/24 07:08 O2 Flow Rate 4 08/07/24 07:08 FiO2 40 08/06/24 08:00 BMI result Body Mass Index 17.7 Constitutional : Awake, talkative, no distress Cardiovascular : RRR, no JVP, no lower extremity edema Respiratory : decrease bilateral air entry mainly on left side, no significant wheezes Gastrointestinal: soft, lax, Normal bowel sounds, Non tender Skin : Warm, Dry Neurological : Alert & oriented x3, No focal deficit Objective Data Active Medications Acetaminophen (Acetaminophen 325 Mg Tablet) 650 mg PO Q6H PRN PRN Reason: Pain, Moderate(Pain Scale 4-6) Last Admin: 08/06/24 14:27 Dose: 650 mg Documented By: NIRAV Benzonatate (Benzonatate 100 Mg Capsule) 100 mg PO TID PRN PRN Reason: Cough Last Admin: 08/07/24 08:39 Dose: 100 mg Documented By: BENJAMIN Docusate Sodium (Docusate Sodium 100 Mg Capsule) 100 mg PO BID [facility] Last Admin: 08/07/24 08:39 Dose: 100 mg Documented By: BENJAMIN Furosemide (Furosemide 40 Mg/4 Ml Vial) 40 mg IVPUSH DAILY [facility]; Protocol Last Admin: 08/07/24 08:37 Dose: 40 mg Documented By: BENJAMIN Guaifenesin (Guaifenesin La 600 Mg Tab.Er.12h) 600 mg PO BID [facility] Last Admin: 08/07/24 08:37 Dose: 600 mg Documented By: BENJAMIN Heparin Sodium (Porcine) (Heparin Sodium,Porcine 5,000 Unit/Ml Vial) 5,000 unit SUBCUT Q12H [facility] Last Admin: 08/07/24 08:37 Dose: 5,000 unit Documented By: BENJAMIN Hydroxyzine HCl (Hydroxyzine Hcl 25 Mg Tablet) 25 mg PO Q6H PRN PRN Reason: anxiety/restlessness Last Admin: 08/05/24 22:40 Dose: 25 mg Documented By: GRZEGORZ Midodrine (Midodrine Hcl 5 Mg Tablet) 15 mg PO Q6H [facility] Last Admin: 08/07/24 08:39 Dose: 15 mg Documented By: BENJAMIN Ondansetron HCl (Ondansetron Hcl 4 Mg/2 Ml Vial) 4 mg IVPUSH Q8H PRN PRN Reason: Nausea and Vomiting Last Admin: 07/18/24 21:28 Dose: 4 mg Documented By: KIARRA Oxycodone HCl (Oxycodone Hcl Immed Release 5 Mg Tablet) 10 mg PO Q4H PRN PRN Reason: Pain, Severe (Pain Scale 7-10) Last Admin: 08/07/24 13:03 Dose: 10 mg Documented By: BENJAMIN Polyethylene Glycol (Polyethylene Glycol 3350 17 Gm Powd.Pack) 17 gm PO DAILY [facility] Last Admin: 08/07/24 08:40 Dose: Not Given Documented By: BENJAMIN Non-Admin Reason: Patient Refused Sodium Biphosphate/Sodium Phosphate (Sodium Phosphate,[place]-Dibasic 133 Ml Enema) 133 ml [place] ONCE PRN PRN Reason: Constipation Last Admin: 07/25/24 18:05 Dose: 133 ml Documented By: CRYSTAL Sodium Chloride (0.9 % Sodium Chloride Flush 10 Ml Syringe) 5 ml IVFLUSH QSHIFT [facility] Last Admin: 08/07/24 08:40 Dose: 5 ml Documented By: BENJAMIN Labs 08/03/24 08:01 08/03/24 08:01 Assessment and Plan (1) Adenocarcinoma, lung: Status: Acute Plan 59-year-old gentleman, recent 30+ pack-year smoker admitted on 06/14/2024 with hypoxia and multifocal pneumonia with abscesses. Patient has been treated with empiric antibiotics with essentially negative cultures. His bronchoscopic lavage also had essentially negative cultures. However, clinically his pulmonary abscess got worse an he had an attempted left lower lobectomy on 07/17/2024, however he required completion left pneumonectomy, now being monitored in the intensive care unit. Extubated 07/18/2024. 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 decompensated on 07/30 and was put on Highflow and remains on highflow plan: incentive spirometry, mobilization, chest percussion therapy, taper oxygen down as tolerated Thoracic surgery input appreciated: CXR 07/30 with increasing pneumonitis- unfortunately likely due to lymphovascular invasion Repeat CXR -unchanged completed cefepime/flagyl,Overall poor prognosis ,oxygen tapered to 4liters d/w oncology and pulm: chest ct -Post left pneumonectomy there is moderate fluid in the left hemithorax with ipsilateral mediastinal shift.There is airspace consolidation with cystic changes and right lower lobe. Chronic interstitial thickening, cystic changes and emphysematous changes are seen in the right upper lobe . 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 oncology will followup. acute hypokalemia, resolved follolow BMP Transaminitis LFT improving left lower rib cage pain with elevated lft's abd us:Cholelithiasis and biliary sludge with borderline wall thickening and mildly prominent common bile duct. d/w surgery -? acute cholecystis -add antibiotics GI following as MRCP--Biliary sludge. 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 No gross choledocholithiasis. Multifocal pneumonia. 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 monitor HypOtension thought to be Possibly secondary to hemodynamic changes post pneumonectomy, and temporaly required vasopressors. Continue Midodrine as needed for low BP moderate malnutrition: continue supplements, encourage PO intake DTi Coccyx area ( please see note from wound care 08/04/24): Turn and Reposition every 2 hours and as needed for patient comfort.? Use pillows or wedges to support off loading positions. Off Load all bony prominences with use of pillows and heel boots if needed.? Apply Preventative foams where needed. ? Monitor for incontinence and moisture control, use barrier creams when needed for prevention and treatment. Provide adequate and supplemental nutrition.? Continue low air loss mattress. When applicable maintain blood glucose levels per Providers order. Coccyx - Off Load Pressure with Q2 hr turns and use of pillows - Cleanse with PH balance spray or wipes, pat dry. ?Apply thin layer of Triad to wound bed. Do not remove all of paste between applications as this may cause further skin damage.? Cover with foam dressing to aid in off loading and protection from friction. Change every 5 days and PRN. dvt prophylax: s/c heaprin Quality Stroke Does the patient have a stroke diagnosis?: No VTE Prior VTE?: No VTE Risk Level:: Medical - moderate - high VTE Device Contraindication: Treatment Not Indicated VTE Drug Contraindication: N/A - Med Ordered
--- NOTE | 2024-08-07 15:21 | MHC.CM.PN ---
EMR reviewed and per MD rounds, pt is medically cleared for discharge, awaiting rehab bed offer.
[2024-08-08] MEDS: oxyCODONE HCl Immed Release 5 MG TABLET 10 MG PO ×4 (01:52→19:49)
[2024-08-08 03:46] VITALS: BP 117/57; PULSE 62; RESP 16; TEMP 36.3; O2SAT 93
[2024-08-08] MEDS: Midodrine HCl 5 MG TABLET 15 MG PO ×4 (04:34→19:48)
[2024-08-08] MEDS: Acetaminophen 325 MG TABLET 650 MG PO ×2 (04:34→16:05)
[2024-08-08 05:57] VITALS: BMI 17.7
[2024-08-08 07:19] VITALS: BP 109/66; PULSE 80; RESP 17; TEMP 36.9; O2SAT 96
--- NOTE | 2024-08-08 07:46 | P.PNIM_ITS ---
Subjective Subjective Date of Service: 08/08/24 Interval History: Status post pneumonectomy Adenocarcinoma lung Hypoxemic respiratory failure Review of Systems no new c/o Review of Systems: Yes all other systems are reviewed and are negative Physical Exam 2 Vital Signs: Vital Signs: Last Vital Signs Temp 98.4 F 08/08/24 07:19 Pulse 80 08/08/24 07:19 Resp 17 08/08/24 07:19 BP 109/66 08/08/24 07:19 Pulse Ox 96 08/08/24 07:19 O2 Del Method Nasal Cannula 08/08/24 07:19 O2 Flow Rate 4 08/08/24 07:19 FiO2 40 08/06/24 08:00 BMI result Body Mass Index 17.7 Constitutional : Awake, talkative, no distress Cardiovascular : RRR, no JVP, no lower extremity edema Respiratory : decrease bilateral air entry mainly on left side, no significant wheezes Gastrointestinal: soft, lax, Normal bowel sounds, Non tender Skin : Warm, Dry Neurological : Alert & oriented x3, No focal deficit Objective Data Active Medications Acetaminophen (Acetaminophen 325 Mg Tablet) 650 mg PO Q6H PRN PRN Reason: Pain, Moderate(Pain Scale 4-6) Last Admin: 08/08/24 04:34 Dose: 650 mg Documented By: CHERIE Benzonatate (Benzonatate 100 Mg Capsule) 100 mg PO TID PRN PRN Reason: Cough Last Admin: 08/07/24 08:39 Dose: 100 mg Documented By: BENJAMIN Docusate Sodium (Docusate Sodium 100 Mg Capsule) 100 mg PO BID [facility] Last Admin: 08/07/24 20:45 Dose: Not Given Documented By: CHERIE Non-Admin Reason: Patient Refused Furosemide (Furosemide 40 Mg/4 Ml Vial) 40 mg IVPUSH DAILY [facility]; Protocol Last Admin: 08/07/24 08:37 Dose: 40 mg Documented By: BENJAMIN Guaifenesin (Guaifenesin La 600 Mg Tab.Er.12h) 600 mg PO BID [facility] Last Admin: 08/07/24 20:15 Dose: 600 mg Documented By: CHERIE Heparin Sodium (Porcine) (Heparin Sodium,Porcine 5,000 Unit/Ml Vial) 5,000 unit SUBCUT Q12H [facility] Last Admin: 08/07/24 20:15 Dose: 5,000 unit Documented By: CHERIE Hydroxyzine HCl (Hydroxyzine Hcl 25 Mg Tablet) 25 mg PO Q6H PRN PRN Reason: anxiety/restlessness Last Admin: 08/05/24 22:40 Dose: 25 mg Documented By: GRZEGORZ Midodrine (Midodrine Hcl 5 Mg Tablet) 15 mg PO Q6H [facility] Last Admin: 08/08/24 04:34 Dose: 15 mg Documented By: CHERIE Ondansetron HCl (Ondansetron Hcl 4 Mg/2 Ml Vial) 4 mg IVPUSH Q8H PRN PRN Reason: Nausea and Vomiting Last Admin: 07/18/24 21:28 Dose: 4 mg Documented By: KIARRA Oxycodone HCl (Oxycodone Hcl Immed Release 5 Mg Tablet) 10 mg PO Q4H PRN PRN Reason: Pain, Severe (Pain Scale 7-10) Last Admin: 08/08/24 06:15 Dose: 10 mg Documented By: CHERIE Polyethylene Glycol (Polyethylene Glycol 3350 17 Gm Powd.Pack) 17 gm PO DAILY [facility] Last Admin: 08/07/24 08:40 Dose: Not Given Documented By: BENJAMIN Non-Admin Reason: Patient Refused Sodium Biphosphate/Sodium Phosphate (Sodium Phosphate,[place]-Dibasic 133 Ml Enema) 133 ml [place] ONCE PRN PRN Reason: Constipation Last Admin: 07/25/24 18:05 Dose: 133 ml Documented By: CRYSTAL Sodium Chloride (0.9 % Sodium Chloride Flush 10 Ml Syringe) 5 ml IVFLUSH QSHIFT [facility] Last Admin: 08/07/24 20:15 Dose: 5 ml Documented By: CHERIE Labs 08/03/24 08:01 08/03/24 08:01 Assessment and Plan (1) Adenocarcinoma, lung: Status: Acute Plan 59-year-old gentleman, recent 30+ pack-year smoker admitted on 06/14/2024 with hypoxia and multifocal pneumonia with abscesses. Patient has been treated with empiric antibiotics with essentially negative cultures. His bronchoscopic lavage also had essentially negative cultures. However, clinically his pulmonary abscess got worse an he had an attempted left lower lobectomy on 07/17/2024, however he required completion left pneumonectomy, now being monitored in the intensive care unit. Extubated 07/18/2024. 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 decompensated on 07/30 and was put on Highflow and remains on highflow plan: incentive spirometry, mobilization, chest percussion therapy, taper oxygen down as tolerated Thoracic surgery input appreciated: CXR 07/30 with increasing pneumonitis- unfortunately likely due to lymphovascular invasion Repeat CXR -unchanged completed cefepime/flagyl,Overall poor prognosis ,oxygen tapered to 4liters d/w oncology and pulm: chest ct -Post left pneumonectomy there is moderate fluid in the left hemithorax with ipsilateral mediastinal shift.There is airspace consolidation with cystic changes and right lower lobe. Chronic interstitial thickening, cystic changes and emphysematous changes are seen in the right upper lobe . 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 oncology will followup. acute hypokalemia, resolved follolow BMP Transaminitis LFT improving left lower rib cage pain with elevated lft's abd us:Cholelithiasis and biliary sludge with borderline wall thickening and mildly prominent common bile duct. d/w surgery -? acute cholecystis -add antibiotics GI following as MRCP--Biliary sludge. 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 No gross choledocholithiasis. Multifocal pneumonia. 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 monitor HypOtension thought to be Possibly secondary to hemodynamic changes post pneumonectomy, and temporaly required vasopressors. Continue Midodrine as needed for low BP moderate malnutrition: continue supplements, encourage PO intake DTi Coccyx area ( please see note from wound care 08/04/24): Turn and Reposition every 2 hours and as needed for patient comfort.? Use pillows or wedges to support off loading positions. Off Load all bony prominences with use of pillows and heel boots if needed.? Apply Preventative foams where needed. ? Monitor for incontinence and moisture control, use barrier creams when needed for prevention and treatment. Provide adequate and supplemental nutrition.? Continue low air loss mattress. When applicable maintain blood glucose levels per Providers order. Coccyx - Off Load Pressure with Q2 hr turns and use of pillows - Cleanse with PH balance spray or wipes, pat dry. ?Apply thin layer of Triad to wound bed. Do not remove all of paste between applications as this may cause further skin damage.? Cover with foam dressing to aid in off loading and protection from friction. Change every 5 days and PRN. dvt prophylax: s/c heaprin oncology d/w plan with patient/sister-need hospice Quality Stroke Does the patient have a stroke diagnosis?: No VTE Prior VTE?: No VTE Risk Level:: Medical - moderate - high VTE Device Contraindication: Treatment Not Indicated VTE Drug Contraindication: N/A - Med Ordered
--- NOTE | 2024-08-08 08:30 | MHC.CM.PN ---
Patient has completed a new HCP, naming his Owhqhr-vs-Mav/Yareli as his Primary Agent and his Sister/Rosalie as his Secondary Agent.
[2024-08-08] MEDS: Furosemide 40 MG/4 ML VIAL IVPUSH (09:23)
[2024-08-08] MEDS: guaiFENesin LA 600 MG TAB.ER.12H PO ×2 (09:23→19:48)
[2024-08-08] MEDS: Docusate Sodium 100 MG CAPSULE PO ×2 (09:23→19:48)
[2024-08-08] MEDS: Heparin Sodium,Porcine 5,000 UNIT/ML VIAL 5000 UNIT SUBCUT ×2 (09:23→19:46)
[2024-08-08] MEDS: Benzonatate 100 MG CAPSULE PO ×2 (09:23→19:48)
[2024-08-08] MEDS: 0.9 % Sodium Chloride Flush 10 ML SYRINGE 5 ML IVFLUSH ×3 (09:28→19:48)
[2024-08-08 14:05] VITALS: BP 117/64; PULSE 80; RESP 18; TEMP 36.2; O2SAT 95
--- NOTE | 2024-08-08 14:35 | MHC.CM.PN ---
Patient transferred from 4th floor today. MD stated that family is interested in hospice. MD requested a Hospice informational meeting. A referral has been sent to [facility] hospice.
[2024-08-08] MEDS: hydrOXYzine HCL 25 MG TABLET PO (15:15)
[2024-08-08 16:20] VITALS: BP 134/66; PULSE 60; RESP 20; TEMP 36.3; O2SAT 97
[2024-08-08 19:15] VITALS: BP 120/64; PULSE 66; RESP 20; TEMP 36.4; O2SAT 97
[2024-08-08 19:48] VITALS: BP 120/64
[2024-08-09] VITALS (9 sets, daily range): BP systolic 116–140; BP diastolic 65–77; PULSE 68–88; RESP 17–20; TEMP 36–37; O2SAT 94–97
[2024-08-09] MEDS: hydrOXYzine HCL 25 MG TABLET PO ×3 (00:42→20:35)
[2024-08-09] MEDS: oxyCODONE HCl Immed Release 5 MG TABLET 10 MG PO ×6 (00:42→23:44)
[2024-08-09] MEDS: Midodrine HCl 5 MG TABLET 15 MG PO ×4 (03:48→20:35)
[2024-08-09] MEDS: guaiFENesin LA 600 MG TAB.ER.12H PO ×2 (09:25→20:35)
[2024-08-09] MEDS: Benzonatate 100 MG CAPSULE PO ×2 (09:25→20:35)
[2024-08-09] MEDS: Heparin Sodium,Porcine 5,000 UNIT/ML VIAL 5000 UNIT SUBCUT ×2 (09:26→20:34)
[2024-08-09] MEDS: Furosemide 40 MG/4 ML VIAL IVPUSH (09:26)
[2024-08-09] MEDS: Docusate Sodium 100 MG CAPSULE PO ×2 (09:26→20:35)
[2024-08-09] MEDS: 0.9 % Sodium Chloride Flush 10 ML SYRINGE 5 ML IVFLUSH ×3 (09:27→20:35)
--- NOTE | 2024-08-09 11:52 | MHC.CM.PN ---
Addendum entered by Marsha Chapman 08/09/24 11:58: ROSALINDA CALLED CM BACK AND EXPLAINED, SHE WILL BE FREE IN THE MORNING WELL, SHE SAYS THE PT USUALLY DOES BETTER IN THE MORNING AND IF POSSIBLE, THIS WOULD LIKELY BE THE BEST TIME. Addendum entered by Marsha Chapman 08/09/24 11:53: SISTERROSALINDA CAN BE CONTACTED AT [phone] Original Note: ROLLY SPOKE TO PTS SISTER WHO REPORTS THE PT IS UNAWARE OF THE CURRENT RECOMMENDATION FOR HOSPICE CARE SHE SAYS SHE WOULD LIKE TO BE PRESENT WHEN THIS IS DISCUSSED WITH HIM SHE ASKS FOR A MEETING WITH HOSPITALIST AND ONCOLOGIST SHE IS AWARE THE ONCOLOGIST IS NOT IN TODAY AND ARRANGEMENTS WILL BE MADE TO MEET WITH HER AND PT TOMORROW SHE SAYS ANYTIME AFTER LUNCH WORKS FOR HER.
--- NOTE | 2024-08-09 12:24 | P.PNIM_ITS ---
Subjective Subjective Date of Service: 08/09/24 Interval History: Status post pneumonectomy Adenocarcinoma lung Hypoxemic respiratory failure Review of Systems Review of Systems: Yes all other systems are reviewed and are negative Physical Exam 2 Vital Signs: Vital Signs: Last Vital Signs Temp 96.8 F 08/09/24 12:12 Pulse 88 08/09/24 12:12 Resp 20 08/09/24 12:12 BP 119/75 08/09/24 12:12 Pulse Ox 95 08/09/24 12:12 O2 Del Method Nasal Cannula 08/09/24 12:12 O2 Flow Rate 4 08/09/24 12:12 FiO2 40 08/06/24 08:00 BMI result Body Mass Index 17.7 Constitutional : Awake, talkative, no distress Cardiovascular : RRR, no JVP, no lower extremity edema Respiratory : decrease bilateral air entry mainly on left side, no significant wheezes Gastrointestinal: soft, lax, Normal bowel sounds, Non tender Skin : Warm, Dry Neurological : Alert & oriented x3, No focal deficit Objective Data Active Medications Acetaminophen (Acetaminophen 325 Mg Tablet) 650 mg PO Q6H PRN PRN Reason: Pain, Moderate(Pain Scale 4-6) Last Admin: 08/08/24 16:05 Dose: 650 mg Documented By: JENNA Benzonatate (Benzonatate 100 Mg Capsule) 100 mg PO TID PRN PRN Reason: Cough Last Admin: 08/09/24 09:25 Dose: 100 mg Documented By: VIJAYA Docusate Sodium (Docusate Sodium 100 Mg Capsule) 100 mg PO BID [facility] Last Admin: 08/09/24 09:26 Dose: 100 mg Documented By: VIJAYA Furosemide (Furosemide 40 Mg/4 Ml Vial) 40 mg IVPUSH DAILY [facility]; Protocol Last Admin: 08/09/24 09:26 Dose: 40 mg Documented By: VIJAYA Guaifenesin (Guaifenesin La 600 Mg Tab.Er.12h) 600 mg PO BID [facility] Last Admin: 08/09/24 09:25 Dose: 600 mg Documented By: VIJAYA Heparin Sodium (Porcine) (Heparin Sodium,Porcine 5,000 Unit/Ml Vial) 5,000 unit SUBCUT Q12H [facility] Last Admin: 08/09/24 09:26 Dose: 5,000 unit Documented By: VIJAYA Hydroxyzine HCl (Hydroxyzine Hcl 25 Mg Tablet) 25 mg PO Q6H PRN PRN Reason: anxiety/restlessness Last Admin: 08/09/24 12:01 Dose: 25 mg Documented By: VIJAYA Midodrine (Midodrine Hcl 5 Mg Tablet) 15 mg PO Q6H [facility] Last Admin: 08/09/24 09:25 Dose: 15 mg Documented By: VIJAYA Ondansetron HCl (Ondansetron Hcl 4 Mg/2 Ml Vial) 4 mg IVPUSH Q8H PRN PRN Reason: Nausea and Vomiting Last Admin: 07/18/24 21:28 Dose: 4 mg Documented By: FIIVETTE Oxycodone HCl (Oxycodone Hcl Immed Release 5 Mg Tablet) 10 mg PO Q4H PRN PRN Reason: Pain, Severe (Pain Scale 7-10) Last Admin: 08/09/24 10:08 Dose: 10 mg Documented By: VIJAYA Polyethylene Glycol (Polyethylene Glycol 3350 17 Gm Powd.Pack) 17 gm PO DAILY [facility] Last Admin: 08/09/24 09:27 Dose: Not Given Documented By: VIJAYA Non-Admin Reason: Patient Refused Sodium Biphosphate/Sodium Phosphate (Sodium Phosphate,[place]-Dibasic 133 Ml Enema) 133 ml NM ONCE PRN PRN Reason: Constipation Last Admin: 07/25/24 18:05 Dose: 133 ml Documented By: CRYSTAL Sodium Chloride (0.9 % Sodium Chloride Flush 10 Ml Syringe) 5 ml IVFLUSH QSHIFT [facility] Last Admin: 08/09/24 09:27 Dose: 5 ml Documented By: VIJAYA Labs 08/03/24 08:01 08/03/24 08:01 Assessment and Plan (1) Adenocarcinoma, lung: Status: Acute Plan 59-year-old gentleman, recent 30+ pack-year smoker admitted on 06/14/2024 with hypoxia and multifocal pneumonia with abscesses. Patient has been treated with empiric antibiotics with essentially negative cultures. His bronchoscopic lavage also had essentially negative cultures. However, clinically his pulmonary abscess got worse an he had an attempted left lower lobectomy on 07/17/2024, however he required completion left pneumonectomy, now being monitored in the intensive care unit. Extubated 07/18/2024. 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 decompensated on 07/30 and was put on Highflow and remains on highflow plan: incentive spirometry, mobilization, chest percussion therapy, taper oxygen down as tolerated Thoracic surgery input appreciated: CXR 07/30 with increasing pneumonitis- unfortunately likely due to lymphovascular invasion Repeat CXR -unchanged completed cefepime/flagyl,Overall poor prognosis ,oxygen tapered to 4liters d/w oncology and pulm: chest ct -Post left pneumonectomy there is moderate fluid in the left hemithorax with ipsilateral mediastinal shift.There is airspace consolidation with cystic changes and right lower lobe. Chronic interstitial thickening, cystic changes and emphysematous changes are seen in the right upper lobe . 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 oncology will followup. acute hypokalemia, resolved follolow BMP Transaminitis LFT improving left lower rib cage pain with elevated lft's abd us:Cholelithiasis and biliary sludge with borderline wall thickening and mildly prominent common bile duct. d/w surgery -? acute cholecystis -add antibiotics GI following as MRCP--Biliary sludge. 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 No gross choledocholithiasis. Multifocal pneumonia. 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 monitor HypOtension thought to be Possibly secondary to hemodynamic changes post pneumonectomy, and temporaly required vasopressors. Continue Midodrine as needed for low BP moderate malnutrition: continue supplements, encourage PO intake DTi Coccyx area ( please see note from wound care 08/04/24): Turn and Reposition every 2 hours and as needed for patient comfort.? Use pillows or wedges to support off loading positions. Off Load all bony prominences with use of pillows and heel boots if needed.? Apply Preventative foams where needed. ? Monitor for incontinence and moisture control, use barrier creams when needed for prevention and treatment. Provide adequate and supplemental nutrition.? Continue low air loss mattress. When applicable maintain blood glucose levels per Providers order. Coccyx - Off Load Pressure with Q2 hr turns and use of pillows - Cleanse with PH balance spray or wipes, pat dry. ?Apply thin layer of Triad to wound bed. Do not remove all of paste between applications as this may cause further skin damage.? Cover with foam dressing to aid in off loading and protection from friction. Change every 5 days and PRN. dvt prophylax: s/c heaprin oncology d/w plan with patient/sister-hospice need/meeting . Quality Stroke Does the patient have a stroke diagnosis?: No VTE Prior VTE?: No VTE Risk Level:: Medical - moderate - high VTE Device Contraindication: Treatment Not Indicated VTE Drug Contraindication: N/A - Med Ordered
[2024-08-09] MEDS: Acetaminophen 325 MG TABLET 650 MG PO (13:29)
--- NOTE | 2024-08-09 19:13 | PC.NURSE ---
Foam dressing to coccyx changed. Pt refused dressing change to left back surgical site. Repositions self in bed. Taking oxycodone for back pain per order with good effect. o2 @ 4L NC. Sats 93-97%. Pt's sister left note on chart for Case Management regarding Hospice meeting.
[2024-08-10 03:12] VITALS: BP 109/60; PULSE 73; RESP 18; TEMP 36.8; O2SAT 100
[2024-08-10 03:33] VITALS: BP 109/60
[2024-08-10] MEDS: oxyCODONE HCl Immed Release 5 MG TABLET 10 MG PO ×6 (03:33→22:52)
[2024-08-10] MEDS: Midodrine HCl 5 MG TABLET 15 MG PO ×4 (03:33→20:56)
--- NOTE | 2024-08-10 03:46 | PC.NURSE ---
Pt seen on bed alert and oriented, tolerating O2 at 4L/min via NC, endorsed no pain at the start of the shift but still with intermittent pain, prn Oxycodone given with relief, rest of meds tolerated, repo self on bed, special pressure relieving bed in use.
[2024-08-10 06:00] VITALS: BMI 17.7
[2024-08-10] MEDS: Docusate Sodium 100 MG CAPSULE PO ×2 (07:21→20:57)
[2024-08-10] MEDS: 0.9 % Sodium Chloride Flush 10 ML SYRINGE 5 ML IVFLUSH ×3 (07:22→20:58)
[2024-08-10] MEDS: Heparin Sodium,Porcine 5,000 UNIT/ML VIAL 5000 UNIT SUBCUT ×2 (07:22→20:57)
[2024-08-10] MEDS: Furosemide 40 MG/4 ML VIAL IVPUSH (07:22)
[2024-08-10] MEDS: guaiFENesin LA 600 MG TAB.ER.12H PO ×2 (07:23→20:57)
--- NOTE | 2024-08-10 07:31 | P.PNIM_ITS ---
Subjective Subjective Date of Service: 08/10/24 Interval History: Status post pneumonectomy Adenocarcinoma lung Hypoxemic respiratory failure Review of Systems no new c/o Review of Systems: Yes all other systems are reviewed and are negative Physical Exam 2 Vital Signs: Vital Signs: Last Vital Signs Temp 98.2 F 08/10/24 03:12 Pulse 73 08/10/24 03:12 Resp 18 08/10/24 03:12 BP 109/60 08/10/24 03:33 Pulse Ox 100 08/10/24 03:12 O2 Del Method Nasal Cannula 08/10/24 03:12 O2 Flow Rate 4 08/10/24 03:12 FiO2 40 08/06/24 08:00 BMI result Body Mass Index 17.7 Constitutional : Awake, talkative, no distress Cardiovascular : RRR, no JVP, no lower extremity edema Respiratory : decrease bilateral air entry mainly on left side, no significant wheezes Gastrointestinal: soft, lax, Normal bowel sounds, Non tender Skin : Warm, Dry Neurological : Alert & oriented x3, No focal deficit Objective Data Active Medications Acetaminophen (Acetaminophen 325 Mg Tablet) 650 mg PO Q6H PRN PRN Reason: Pain, Moderate(Pain Scale 4-6) Last Admin: 08/09/24 13:29 Dose: 650 mg Documented By: VIJAYA Benzonatate (Benzonatate 100 Mg Capsule) 100 mg PO TID PRN PRN Reason: Cough Last Admin: 08/09/24 20:35 Dose: 100 mg Documented By: CASTILElsy Docusate Sodium (Docusate Sodium 100 Mg Capsule) 100 mg PO BID [facility] Last Admin: 08/10/24 07:21 Dose: 100 mg Documented By: SHOSHANA Furosemide (Furosemide 40 Mg/4 Ml Vial) 40 mg IVPUSH DAILY [facility]; Protocol Last Admin: 08/10/24 07:22 Dose: 40 mg Documented By: SHOSHANA Guaifenesin (Guaifenesin La 600 Mg Tab.Er.12h) 600 mg PO BID [facility] Last Admin: 08/10/24 07:23 Dose: 600 mg Documented By: SHOSHANA Heparin Sodium (Porcine) (Heparin Sodium,Porcine 5,000 Unit/Ml Vial) 5,000 unit SUBCUT Q12H [facility] Last Admin: 08/10/24 07:22 Dose: 5,000 unit Documented By: SHOSHANA Hydroxyzine HCl (Hydroxyzine Hcl 25 Mg Tablet) 25 mg PO Q6H PRN PRN Reason: anxiety/restlessness Last Admin: 08/09/24 20:35 Dose: 25 mg Documented By: AZIZA Midodrine (Midodrine Hcl 5 Mg Tablet) 15 mg PO Q6H [facility] Last Admin: 08/10/24 07:22 Dose: 15 mg Documented By: SHOSHANA Ondansetron HCl (Ondansetron Hcl 4 Mg/2 Ml Vial) 4 mg IVPUSH Q8H PRN PRN Reason: Nausea and Vomiting Last Admin: 07/18/24 21:28 Dose: 4 mg Documented By: KIARRA Oxycodone HCl (Oxycodone Hcl Immed Release 5 Mg Tablet) 10 mg PO Q4H PRN PRN Reason: Pain, Severe (Pain Scale 7-10) Last Admin: 08/10/24 07:22 Dose: 10 mg Documented By: SHOSHANA Polyethylene Glycol (Polyethylene Glycol 3350 17 Gm Powd.Pack) 17 gm PO DAILY [facility] Last Admin: 08/10/24 07:22 Dose: Not Given Documented By: SHOSHANA Non-Admin Reason: Patient Refused Sodium Biphosphate/Sodium Phosphate (Sodium Phosphate,[place]-Dibasic 133 Ml Enema) 133 ml MA ONCE PRN PRN Reason: Constipation Last Admin: 07/25/24 18:05 Dose: 133 ml Documented By: CRYSTAL Sodium Chloride (0.9 % Sodium Chloride Flush 10 Ml Syringe) 5 ml IVFLUSH QSHIFT [facility] Last Admin: 08/10/24 07:22 Dose: 5 ml Documented By: SHOSHANA Labs 08/03/24 08:01 08/03/24 08:01 Assessment and Plan (1) Adenocarcinoma, lung: Status: Acute Plan 59-year-old gentleman, recent 30+ pack-year smoker admitted on 06/14/2024 with hypoxia and multifocal pneumonia with abscesses. Patient has been treated with empiric antibiotics with essentially negative cultures. His bronchoscopic lavage also had essentially negative cultures. However, clinically his pulmonary abscess got worse an he had an attempted left lower lobectomy on 07/17/2024, however he required completion left pneumonectomy, now being monitored in the intensive care unit. Extubated 07/18/2024. 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 decompensated on 07/30 and was put on Highflow and remains on highflow plan: incentive spirometry, mobilization, chest percussion therapy, taper oxygen down as tolerated Thoracic surgery input appreciated: CXR 07/30 with increasing pneumonitis- unfortunately likely due to lymphovascular invasion Repeat CXR -unchanged completed cefepime/flagyl,Overall poor prognosis ,oxygen tapered to 4liters d/w oncology and pulm: chest ct -Post left pneumonectomy there is moderate fluid in the left hemithorax with ipsilateral mediastinal shift.There is airspace consolidation with cystic changes and right lower lobe. Chronic interstitial thickening, cystic changes and emphysematous changes are seen in the right upper lobe . 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 oncology will followup. acute hypokalemia, resolved follolow BMP Transaminitis LFT improving left lower rib cage pain with elevated lft's abd us:Cholelithiasis and biliary sludge with borderline wall thickening and mildly prominent common bile duct. d/w surgery -? acute cholecystis -add antibiotics GI following as MRCP--Biliary sludge. 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 No gross choledocholithiasis. Multifocal pneumonia. 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 monitor HypOtension thought to be Possibly secondary to hemodynamic changes post pneumonectomy, and temporaly required vasopressors. Continue Midodrine as needed for low BP moderate malnutrition: continue supplements, encourage PO intake DTi Coccyx area ( please see note from wound care 08/04/24): Turn and Reposition every 2 hours and as needed for patient comfort.? Use pillows or wedges to support off loading positions. Off Load all bony prominences with use of pillows and heel boots if needed.? Apply Preventative foams where needed. ? Monitor for incontinence and moisture control, use barrier creams when needed for prevention and treatment. Provide adequate and supplemental nutrition.? Continue low air loss mattress. When applicable maintain blood glucose levels per Providers order. Coccyx - Off Load Pressure with Q2 hr turns and use of pillows - Cleanse with PH balance spray or wipes, pat dry. ?Apply thin layer of Triad to wound bed. Do not remove all of paste between applications as this may cause further skin damage.? Cover with foam dressing to aid in off loading and protection from friction. Change every 5 days and PRN. dvt prophylax: s/c heaprin oncology d/w plan with patient/sister-hospice need/meeting Quality Stroke Does the patient have a stroke diagnosis?: No VTE Prior VTE?: No VTE Risk Level:: Medical - moderate - high VTE Device Contraindication: Treatment Not Indicated VTE Drug Contraindication: N/A - Med Ordered
[2024-08-10 08:00] VITALS: BP 108/69; PULSE 61; RESP 12; TEMP 36.4; O2SAT 97
--- NOTE | 2024-08-10 11:27 | MHC.CM.PN ---
Addendum entered by Marsha Chapman 08/10/24 14:00: [facility] CM SPOKE TO PT AND FAMILY, [facility] AND AUTH Original Note: CM MET WITH PT, FAMILY, AND HOSPITALIST AT BEDSIDE PER DISCUSSION, PT WILL WAIT TO SEE WHAT CHEMO OPTIONS HE MAY HAVE IF HE HAS AN ORAL CHEMO OPTION, HE WILL TRY IT, HOWEVER IF HE DOES NOT FEEL WELL ON IT, HE STATES HE WILL SWITCH TO HOSPICE CARE PT CURRENTLY VERY WEAK AND REPORTS A DESIRE TO GO TO STR REFERRALS OUT
[2024-08-10 12:00] VITALS: BP 117/69; PULSE 79; RESP 14; TEMP 36.9; O2SAT 94
[2024-08-10] MEDS: hydrOXYzine HCL 25 MG TABLET PO (12:29)
[2024-08-10] MEDS: Benzonatate 100 MG CAPSULE PO (12:29)
--- NOTE | 2024-08-10 13:17 | MHC.CLN ---
F/U DIET RX:REGULAR CONTINUE TO PROVIDE SUPPLEMENTS PT ACCEPTS TO PROMOTE WOUND HEALING: ENSURE BID PROVIDES 700KCALS, 40G PROTEIN (PREFERS STRAWBERRY) MAGIC CUP BID PROVIDES 580KCALS, 18G PROTEIN SKIN WITH DTI TO COCCYX. PO INTAKE VARIABLE, 25-100%. MONITOR PO INTAKE AND ENCOURAGE SUPPLEMENTS.
--- NOTE | 2024-08-10 13:53 | P.PNHO-ONC_ITS ---
Medical Summary - Medical Summary Date of Service: 08/10/24 Chief complaint: Follow-up Primary Care Provider: None Physician Hoist Mechanic Utilized?: No - Sinhala Speaking Interval History Interval history: Patient underwent left pneumonectomy on 07/17/2024. He got extubated on the , developed flash pulmonary edema and was treated with Lasix in the ICU. 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 He is on oxygen, 4 L per nasal cannula. He is waiting discharge to rehab. Review of Systems - Neurologic Reports no additional neurologic complaints, Denies focal weakness, Denies memory loss, Denies seizure-like activity [facility] Medical History: Medical History (Last Reviewed 07/24/24 @ 12:40 by Franky Roche MD) Acute respiratory disease Cough Wheezing on auscultation Family History: Family History (Last Reviewed 07/24/24 @ 12:40 by Franky Roche MD) Father Lung cancer Mother Unknown family medical history Family history: reviewed and not pertinent Social History: Social History (Last Reviewed 07/24/24 @ 12:40 by Franky Roche MD) Living Situation History: Household Members: Family Household Members Other:: mother and disabled brother Housing: Apartment Do you presently have visiting nurse or other home services: Yes Tobacco History: Patient Tobacco Use Status: Former Tobacco user Tobacco use type: Cigarette e-Cigarette/Vaping Use: Never Used Second Hand Smoke Exposure: No Occupation Assessmet: service: No Home Medications and Allergies Current Medications: Current Medications Acetaminophen (Acetaminophen 325 Mg Tablet) 650 mg PO Q6H PRN PRN Reason: Pain, Moderate(Pain Scale 4-6) Last Admin: 08/09/24 13:29 Dose: 650 mg Benzonatate (Benzonatate 100 Mg Capsule) 100 mg PO TID PRN PRN Reason: Cough Last Admin: 08/10/24 12:29 Dose: 100 mg Docusate Sodium (Docusate Sodium 100 Mg Capsule) 100 mg PO BID CRISTINE Last Admin: 08/10/24 07:21 Dose: 100 mg Furosemide (Furosemide 40 Mg/4 Ml Vial) 40 mg IVPUSH DAILY CRISTINE; Protocol Last Admin: 08/10/24 07:22 Dose: 40 mg Guaifenesin (Guaifenesin La 600 Mg Tab.Er.12h) 600 mg PO BID CRISTINE Last Admin: 08/10/24 07:23 Dose: 600 mg Heparin Sodium (Porcine) (Heparin Sodium,Porcine 5,000 Unit/Ml Vial) 5,000 unit SUBCUT Q12H [facility] Last Admin: 08/10/24 07:22 Dose: 5,000 unit Hydroxyzine HCl (Hydroxyzine Hcl 25 Mg Tablet) 25 mg PO Q6H PRN PRN Reason: anxiety/restlessness Last Admin: 08/10/24 12:29 Dose: 25 mg Midodrine (Midodrine Hcl 5 Mg Tablet) 15 mg PO Q6H [facility] Last Admin: 08/10/24 07:22 Dose: 15 mg Ondansetron HCl (Ondansetron Hcl 4 Mg/2 Ml Vial) 4 mg IVPUSH Q8H PRN PRN Reason: Nausea and Vomiting Last Admin: 07/18/24 21:28 Dose: 4 mg Polyethylene Glycol (Polyethylene Glycol 3350 17 Gm Powd.Pack) 17 gm PO DAILY [facility] Last Admin: 08/10/24 07:22 Dose: Not Given Sodium Biphosphate/Sodium Phosphate (Sodium Phosphate,[place]-Dibasic 133 Ml Enema) 133 ml [place] ONCE PRN PRN Reason: Constipation Last Admin: 07/25/24 18:05 Dose: 133 ml Sodium Chloride (0.9 % Sodium Chloride Flush 10 Ml Syringe) 5 ml IVFLUSH QSHIFT [facility] Last Admin: 08/10/24 07:22 Dose: 5 ml Home Medications ?Medication ?Instructions ?Recorded ?Confirmed ?Type albuterol sulfate 90 mcg/actuation 2 puff inhalation Q6H PRN 06/14/24 06/14/24 History aerosol inhaler shortness of breath or wheezing ibuprofen 400 mg tablet 400 mg PO Q8H PRN Pain 06/14/24 06/14/24 History Allergies Allergy/AdvReac Type Severity Reaction Status Date / Time amoxicillin Allergy Intermediate Rash Verified 07/17/24 06:35 penicillin G Allergy Intermediate Rash Verified 07/17/24 06:35 penicillin V Allergy Intermediate Rash Verified 07/17/24 06:35 Penicillins [PENICILLINS] Allergy Intermediate Rash Verified 07/17/24 06:35 tomato Allergy Intermediate Rash Verified 07/17/24 06:35 clindamycin Allergy Intermediate rash Uncoded 07/05/24 07:24 Exam Vital signs: Vital Signs Temp 98.5 F 08/10/24 12:00 Pulse 79 08/10/24 12:00 Resp 14 08/10/24 12:00 BP 117/69 08/10/24 12:00 Pulse Ox 94 08/10/24 12:00 O2 Del Method Nasal Cannula 08/10/24 12:00 O2 Flow Rate 4 08/10/24 12:00 FiO2 40 08/06/24 08:00 Intake & Output 08/09/24 08/10/24 08/10/24 18:59 06:59 18:59 Intake Total 300 / 1100 800 / 1100 Output Total 450 / 1150 700 / 1150 Balance -150 / -50 100 / -50 Urine Output (Average ml/kg/hr) 0.67 1.04 Intake: Intake, Oral Amount 300 / 1100 800 / 1100 Output: Output, Urine Amount (Catheter) 450 / 1150 700 / 1150 Urethral 450 / 1150 700 / 1150 Other: Breakfast % Eaten 25% Lunch % Eaten 50% Dinner % Eaten 75% Eating (Feeding) Ability Independent Independent Number of Bowel Movements 2 Urine Color Yellow Yellow Last Bowel Movement 08/08/24 08/09/24 Stool Incontinent Stool Amount Moderate Stool Color Brown Weight 56 kg Weight in Grams [id number] Weight 56 kg BMI result Body Mass Index 17.7 - Constitutional Present: no acute distress, thin - Routine HEENT Exam Head: Present: normal inspection - Routine Respiratory Exam Absent: accessory muscle use - Routine Cardiovascular Exam Cardiovascular: Present: S1, S2 - Routine Extremities Exam Absent: pedal edema - Routine Skin Exam Present: intact - Routine Neurological Exam Present: alert, oriented X3 - Detailed Neurological Exam: Coma Scale Eye Opening: Spontaneous (4) Data - Labs CBC & Chem 7: 08/03/24 08:01 08/03/24 08:01 - Imaging Radiologist's impression: ITS Impressions Chest X-Ray 07/03/24 12:32 IMPRESSION: 1. Extensive parenchymal opacification left greater than right lungs with underlying COPD. Compared with the recent chest CT, there has been mild improvement in the right upper lung region but otherwise no change. (Given the appearance on the recent chest CT, bilateral lung abscesses are suspected). 2. No pneumothorax. 3. Probable small right effusion. No definite left effusion. Electronically signed by: Carlos Moya MD 07/03/2024 01:00 PM EDT Chest X-Ray 07/15/24 10:57 IMPRESSION: Extensive airspace opacity in the right mid to lower lung zone and involving the entire left lung as seen previously, compatible with pneumonia. There are air/fluid levels in the left lower lobe as noted on chest CT, compatible with abscess formation. Electronically signed by: Hero Zavala MD 07/15/2024 11:42 AM EDT RP Chest X-Ray 07/17/24 10:50 IMPRESSION: 1. Endotracheal tube in good position, with second luminal tube extending into the left mainstem bronchus. 2. Left-sided chest tube in the left apex. 3. Left pneumonectomy with gas throughout the left thoracic cavity. Mild left mediastinal shift. 4. Opacity throughout the aerated right lung, minimally less confluent than on the prior radiograph. Above findings communicated to Dr. Gee directly via phone call at 11:24 AM, 07/17/2024. Electronically signed by: Carlos Moya MD 07/17/2024 11:26 AM EDT Chest X-Ray 07/20/24 16:18 IMPRESSION: No significant interval change since earlier same day at 6:04 AM. Electronically signed by: Carlos Moya MD 07/20/2024 04:50 PM EDT RP Chest X-Ray 07/22/24 07:15 IMPRESSION: Atelectatic/collapsed left lung with stable hydropneumothorax, left side. Pulmonary edema versus ARDS versus multifocal pneumonia versus pneumonitis, right lung. Overall no gross change. Electronically signed by: Candelario Patel MD 07/22/2024 08:01 AM EDT RP Abdomen Ultrasound 07/24/24 09:21 IMPRESSION: Cholelithiasis and biliary sludge with borderline wall thickening and mildly prominent common bile duct. 1.1 cm Bosniak type I cyst, right kidney. Electronically signed by: Candelario Patel MD 07/24/2024 09:47 AM EDT RP Cholangiopancreatography MRI 07/27/24 12:01 IMPRESSION: Biliary sludge. 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 No gross choledocholithiasis. Multifocal pneumonia. 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 Electronically signed by: Candelario Patel MD 07/28/2024 08:05 AM EDT RP Chest X-Ray 07/28/24 09:45 IMPRESSION: 1. Slightly more confluent airspace disease throughout the hyperaerated right lung. Electronically signed by: Carlos Moya MD 07/28/2024 10:48 AM EDT RP Chest X-Ray 07/30/24 07:15 IMPRESSION: 1. Slightly less pneumatization in the left superior thorax, expected postoperative evolution. 2. Stable appearing diffuse pneumonitis throughout the right lung most confluent mid and lower region. Electronically signed by: Carlos Moya MD 07/30/2024 08:15 AM EDT RP Chest X-Ray 08/03/24 11:18 IMPRESSION: No gross change Electronically signed by: Candelario Patel MD 08/03/2024 01:13 PM EDT RP Chest CT 08/04/24 15:27 IMPRESSION: Post left pneumonectomy there is moderate fluid in the left hemithorax with ipsilateral mediastinal shift. There is airspace consolidation with cystic changes and right lower lobe. Chronic interstitial thickening, cystic changes and emphysematous changes are seen in the right upper lobe . Fleischner guidelines were followed. Electronically signed by: Orlando Banks MD 08/04/2024 05:08 PM EDT RP Assessment and Plan Patient Active problem list reviewed?: Yes (1) Adenocarcinoma, lung Status: Acute Assessment and plan: 1. This is a 59-year-old male, 30+ pack-year smoking history was admitted on 06/14/2024 with hypoxia and multifocal pneumonia with abscess. After prolonged course of antibiotics, he underwent an attempted left lower lobectomy on 07/17/2024 which was converted to left pneumonectomy. 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 Positive soft tissue margin. One hilar lymph node positive for adenocarcinoma. Tumor size 16 cm, numerous multiple tumor nodules in both lobes. Parenchyma margin, tumor widely present at soft tissue margin in the lower lobe. Pathological stage pT4 (M) pN1 with positive margin. PD-L1 less than 1%. Molecular studies unfortunately was negative for any actionable mutation such as EGFR, ERBB2, ALK, RET, MET, BRAF and ROS1. At this time he is rather frail and malnourished. CT chest performed 08/04/2024 shows post left pneumonectomy changes. There is airspace consolidation with cystic changes in the right lower lobe, chronic interstitial thickening, cystic changes and emphysematous changes in the right upper lobe. Appearance of the right lung is similar to left lung and may also have cancer, content production specialist has also reviewed images and feels the consolidative changes is most likely secondary to malignancy rather than infectious process. He has been on antibiotics for many weeks. He is now on oxygen by nasal cannula. He is awaiting discharge to rehab. I discussed with the patient that he does not have PD-L1 or any actionable mutation that would make him eligible for targeted therapy. At this time he is too frail to receive intravenous chemotherapy. This can be addressed as an outpatient after his discharge from rehab. Thank you. - Time Spent With Patient Time Spent with Patient (in minutes): 10
--- NOTE | 2024-08-10 14:32 | HO.WOUND ---
Addendum entered by Leida Bates RN 08/11/24 15:48: 08/11/24 @ 1549 Attempted to see patients sacral wound today - initially he refused and was agreeable to my return in an hour. Upon return the patient reported significant pain and voiced his frustration with not letting him rest and remain comfortable. I attempted assessment but the patient was not will nor able to reposition for proper assessment. The patient continues to appear frail and ill. Chart review reveals 14lb wt loss from 07/29- 08/10/24. Providers are aware. Patient appears to be clinically unwell. Discussed case verbally with Dr. Donato - she will assess patient for treatment options and next steps. Will discuss with providers Palliative care options if available. Original Note: Wound Consult:Follow up attempted Arrival to bedside patient refused assessment as this time - requested I return later in the day for dressing change and assessment. Will attempt to see at future date and or time for follow up. No new topical orders at this time. Continue with Med[place]ion[place] application for autolytic debridement.
[2024-08-10 16:00] VITALS: BP 115/71; PULSE 84; RESP 14; TEMP 36.7; O2SAT 96
[2024-08-10] MEDS: Acetaminophen 325 MG TABLET 650 MG PO (17:50)
[2024-08-10 20:00] VITALS: BP 123/72; PULSE 97; RESP 20; TEMP 36.1; O2SAT 96
[2024-08-10] MEDS: oxyCODONE HCl ER 10 MG TAB.ER.12H PO (20:56)
[2024-08-11] VITALS (8 sets, daily range): BP systolic 105–126; BP diastolic 61–81; PULSE 59–95; RESP 17–22; TEMP 36–36.9; O2SAT 92–97; BMI 17.4
[2024-08-11] MEDS: oxyCODONE HCl Immed Release 5 MG TABLET 10 MG PO ×4 (03:15→20:55)
[2024-08-11] MEDS: Midodrine HCl 5 MG TABLET 15 MG PO ×4 (03:15→20:54)
[2024-08-11] MEDS: Furosemide 40 MG/4 ML VIAL IVPUSH (08:25)
[2024-08-11] MEDS: Heparin Sodium,Porcine 5,000 UNIT/ML VIAL 5000 UNIT SUBCUT ×2 (08:25→20:56)
[2024-08-11] MEDS: oxyCODONE HCl ER 10 MG TAB.ER.12H PO (08:26)
[2024-08-11] MEDS: guaiFENesin LA 600 MG TAB.ER.12H PO ×2 (08:27→20:55)
[2024-08-11] MEDS: 0.9 % Sodium Chloride Flush 10 ML SYRINGE 5 ML IVFLUSH ×3 (08:27→20:56)
[2024-08-11] MEDS: Docusate Sodium 100 MG CAPSULE PO ×2 (08:27→20:55)
--- NOTE | 2024-08-11 10:52 | MHC.CM.PN ---
[facility] CL[facility]ICAL UPDATES FAXED VIA [employer].
--- NOTE | 2024-08-11 13:29 | HO.PM.IMPN ---
Subjective Subjective Date of Service: 08/11/24 Interval History: Status post pneumonectomy Adenocarcinoma lung Hypoxemic respiratory failure Review of Systems as above, Review of Systems: Yes all other systems are reviewed and are negative Physical Exam Vital Signs: Vital Signs: Last Vital Signs Temp 96.9 F 08/11/24 12:00 Pulse 95 08/11/24 12:00 Resp 20 08/11/24 12:00 BP 117/81 08/11/24 12:00 Pulse Ox 97 08/11/24 12:00 O2 Del Method Room Air 08/11/24 12:00 O2 Flow Rate 4 08/11/24 07:29 FiO2 40 08/06/24 08:00 BMI result Body Mass Index 17.4 Constitutional : Awake, talkative, no distress Cardiovascular : RRR, no JVP, no lower extremity edema Respiratory : decrease bilateral air entry mainly on left side, no significant wheezes Gastrointestinal: soft, lax, Normal bowel sounds, Non tender Skin : Warm, Dry Neurological : Alert & oriented x3, No focal deficit Objective Data Active Medications Acetaminophen (Acetaminophen 325 Mg Tablet) 650 mg PO Q6H PRN PRN Reason: Pain, Moderate(Pain Scale 4-6) Last Admin: 08/10/24 17:50 Dose: 650 mg Documented By: MARGRET Benzonatate (Benzonatate 100 Mg Capsule) 100 mg PO TID PRN PRN Reason: Cough Last Admin: 08/10/24 12:29 Dose: 100 mg Documented By: SHOSHANA Docusate Sodium (Docusate Sodium 100 Mg Capsule) 100 mg PO BID [facility] Last Admin: 08/11/24 08:27 Dose: 100 mg Documented By: MARGRET Furosemide (Furosemide 40 Mg/4 Ml Vial) 40 mg IVPUSH DAILY [facility]; Protocol Last Admin: 08/11/24 08:25 Dose: 40 mg Documented By: MARGRET Guaifenesin (Guaifenesin La 600 Mg Tab.Er.12h) 600 mg PO BID [facility] Last Admin: 08/11/24 08:27 Dose: 600 mg Documented By: MARGRET Heparin Sodium (Porcine) (Heparin Sodium,Porcine 5,000 Unit/Ml Vial) 5,000 unit SUBCUT Q12H [facility] Last Admin: 08/11/24 08:25 Dose: 5,000 unit Documented By: MARGRET Hydroxyzine HCl (Hydroxyzine Hcl 25 Mg Tablet) 25 mg PO Q6H PRN PRN Reason: anxiety/restlessness Last Admin: 08/10/24 12:29 Dose: 25 mg Documented By: SHOSHANA Midodrine (Midodrine Hcl 5 Mg Tablet) 15 mg PO Q6H [facility] Last Admin: 08/11/24 08:38 Dose: 15 mg Documented By: MARGRET Ondansetron HCl (Ondansetron Hcl 4 Mg/2 Ml Vial) 4 mg IVPUSH Q8H PRN PRN Reason: Nausea and Vomiting Last Admin: 07/18/24 21:28 Dose: 4 mg Documented By: KIARRA Oxycodone HCl (Oxycodone Hcl Immed Release 5 Mg Tablet) 10 mg PO Q4H PRN PRN Reason: Pain, Severe (Pain Scale 7-10) Last Admin: 08/11/24 13:01 Dose: 10 mg Documented By: MARGRET Oxycodone HCl (Oxycodone Hcl Er 10 Mg Tab.Er.12h) 5 mg PO BID [facility] Polyethylene Glycol (Polyethylene Glycol 3350 17 Gm Powd.Pack) 17 gm PO DAILY [facility] Last Admin: 08/11/24 08:34 Dose: Not Given Documented By: MARGRET Non-Admin Reason: Patient Refused Sodium Biphosphate/Sodium Phosphate (Sodium Phosphate,[place]-Dibasic 133 Ml Enema) 133 ml [place] ONCE PRN PRN Reason: Constipation Last Admin: 07/25/24 18:05 Dose: 133 ml Documented By: CRYSTAL Sodium Chloride (0.9 % Sodium Chloride Flush 10 Ml Syringe) 5 ml IVFLUSH QSHIFT [facility] Last Admin: 08/11/24 08:27 Dose: 5 ml Documented By: MARRGET Labs 08/03/24 08:01 08/03/24 08:01 Assessment and Plan (1) Adenocarcinoma, lung: Status: Acute Plan 59-year-old gentleman, recent 30+ pack-year smoker admitted on 06/14/2024 with hypoxia and multifocal pneumonia with abscesses. Patient has been treated with empiric antibiotics with essentially negative cultures. His bronchoscopic lavage also had essentially negative cultures. However, clinically his pulmonary abscess got worse an he had an attempted left lower lobectomy on 07/17/2024, however he required completion left pneumonectomy, now being monitored in the intensive care unit. Extubated 07/18/2024. 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 decompensated on 07/30 and was put on Highflow and remains on highflow plan: incentive spirometry, mobilization, chest percussion therapy, taper oxygen down as tolerated Thoracic surgery input appreciated: CXR 07/30 with increasing pneumonitis- unfortunately likely due to lymphovascular invasion Repeat CXR -unchanged completed cefepime/flagyl,Overall poor prognosis ,oxygen tapered to 4liters d/w oncology and pulm: chest ct -Post left pneumonectomy there is moderate fluid in the left hemithorax with ipsilateral mediastinal shift.There is airspace consolidation with cystic changes and right lower lobe. Chronic interstitial thickening, cystic changes and emphysematous changes are seen in the right upper lobe . 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 oncology d/w patient:patient that he does not have PD-L1 or any actionable mutation that would make him eligible for targeted therapy. At this time he is too frail to receive intravenous chemotherapy. This can be addressed as an outpatient after his discharge from rehab acute hypokalemia, resolved follolow BMP Transaminitis LFT improving left lower rib cage pain with elevated lft's abd us:Cholelithiasis and biliary sludge with borderline wall thickening and mildly prominent common bile duct. d/w surgery -? acute cholecystis -add antibiotics GI following as MRCP--Biliary sludge. 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 No gross choledocholithiasis. Multifocal pneumonia. 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 monitor HypOtension thought to be Possibly secondary to hemodynamic changes post pneumonectomy, and temporaly required vasopressors. Continue Midodrine as needed for low BP moderate malnutrition: continue supplements, encourage PO intake DTi Coccyx area ( please see note from wound care 08/04/24): Turn and Reposition every 2 hours and as needed for patient comfort.? Use pillows or wedges to support off loading positions. Off Load all bony prominences with use of pillows and heel boots if needed.? Apply Preventative foams where needed. ? Monitor for incontinence and moisture control, use barrier creams when needed for prevention and treatment. Provide adequate and supplemental nutrition.? Continue low air loss mattress. When applicable maintain blood glucose levels per Providers order. Coccyx - Off Load Pressure with Q2 hr turns and use of pillows - Cleanse with PH balance spray or wipes, pat dry. ?Apply thin layer of Triad to wound bed. Do not remove all of paste between applications as this may cause further skin damage.? Cover with foam dressing to aid in off loading and protection from friction. Change every 5 days and PRN. dvt prophylax: s/c heaprin oncology d/w plan with patient/sister-awaiting rehab placement. Quality Stroke Does the patient have a stroke diagnosis?: No VTE Prior VTE?: No VTE Risk Level:: Medical - moderate - high VTE Device Contraindication: Treatment Not Indicated VTE Drug Contraindication: N/A - Med Ordered
[2024-08-11] MEDS: Acetaminophen 325 MG TABLET 650 MG PO ×2 (15:17→23:34)
[2024-08-11] MEDS: hydrOXYzine HCL 25 MG TABLET PO (15:18)
--- NOTE | 2024-08-11 18:33 | PC.NURSE ---
Per infectious disease RN will leave trevino in place as pt is expecting to go to rehab.
[2024-08-11] MEDS: oxyCODONE HCl ER 10 MG TAB.ER.12H 5 MG PO (20:54)
[2024-08-12] VITALS (7 sets, daily range): BP systolic 115–133; BP diastolic 66–81; PULSE 72–80; RESP 14–18; TEMP 36.1–36.8; O2SAT 93–98; BMI 17.1
[2024-08-12] MEDS: oxyCODONE HCl Immed Release 5 MG TABLET 10 MG PO ×6 (01:01→23:17)
[2024-08-12] MEDS: Midodrine HCl 5 MG TABLET 15 MG PO ×4 (03:23→21:01)
[2024-08-12] MEDS: oxyCODONE HCl ER 10 MG TAB.ER.12H PO ×2 (08:08→21:02)
[2024-08-12] MEDS: Docusate Sodium 100 MG CAPSULE PO ×2 (08:08→21:03)
[2024-08-12] MEDS: guaiFENesin LA 600 MG TAB.ER.12H PO ×2 (08:08→21:03)
[2024-08-12] MEDS: Furosemide 40 MG/4 ML VIAL IVPUSH (08:08)
[2024-08-12] MEDS: Heparin Sodium,Porcine 5,000 UNIT/ML VIAL 5000 UNIT SUBCUT ×2 (08:08→21:03)
[2024-08-12] MEDS: 0.9 % Sodium Chloride Flush 10 ML SYRINGE 5 ML IVFLUSH ×3 (08:09→21:08)
--- NOTE | 2024-08-12 12:21 | MHC.CLN ---
F/U PO INTAKE VARIABLE RANGING FROM 0-100% PT REPORTS TIRED DIET RX:REGULAR CONTINUE TO PROVIDE SUPPLEMENTS PT ACCEPTS TO PROMOTE WOUND HEALING: ENSURE BID PROVIDES 700KCALS, 40G PROTEIN (PREFERS STRAWBERRY) MAGIC CUP BID PROVIDES 580KCALS, 18G PROTEIN SKIN WITH DTI TO COCCYX CONTINUE TO MONITOR PO INTAKE AND ENCOURAGE SUPPLEMENTS
[2024-08-12] MEDS: Acetaminophen 325 MG TABLET 650 MG PO (12:59)
--- NOTE | 2024-08-12 13:48 | MHC.CM.PN ---
Addendum entered by Sarah Monsivais, RN 08/12/24 13:56: [facility] NO LONGER OFFERING BED D/T NOT HAVING RESPIRATORY IN BUILDING, SNF REF REBROADCASTED W/NEW PLAN FOR PT TO GO ON HOSPICE AT SNF. Original Note: CM MET W/PT AND ALT HCP MALCOM AT BEDSIDE TO DISCUSS DISPO PER ONCOLOGY PT IS NOT A CANDIDATE FOR ORAL CHEMO, DISCUSSED IN DETAIL AND PT STATES, I WANT HOSPICE PT FURTHER ELABORATES AND REPORTS HE JUST WANTS TO BE COMFORTABLE AND DOES NOT WANT TO HAVE TO WORK WITH P.T. PT'S SISTER MALCOM ALSO AGREEING W/PLAN AND FOLLOWED UPW/PT'S [facility] ROSALINDA. CM RECEIVED CALL FROM PT'S SISTER ROSALINDA WHO HAD QUESTIONS REGARDING HOSPICE WHICH WERE ANSWERED, ROSALINDA REPORTS PT WOULD LIKE HER TO COME IN AND ASSIST PT WITH COMPLETING AN ADVANCED DIRECTIVE, HOSPITALIST AWARE AND ROSALINDA WILL BE IN AT 3PM.
--- NOTE | 2024-08-12 14:43 | MHC.CM.PN ---
Received Ethics consult for patient. The following individuals were present: Leida Bates, Sarah Monsivais, Rishi Arredondo, Singh Solomon & Cary Sanchez Case Narrative: Patient is a 59 YOM w/ an extensive hospitalization w/ metastatic adenocarcinoma. Patient is no longer a candidate for targeted chemo. Has poor prognosis, malnourished and non-healing wound. the ethical concerns is around the provider detailing a clear understanding to the patient of his poor prognosis. Comments made by patient give perception that he may not have been given a realistic explanation of his prognosis. He is malnourished with extensive non-healing wounds. If patient does want hospice, goals of care should lead in that direction. Ethical Anaylysis: In reviewing pt's case it was determined a multidisciplinary meeting was had with patient earlier in the week. The current CM was going to talk with patient about options of home hospice or facility hospice and review insurance benefits and determine his understanding. Additional ask provider to discuss code status with patient.
--- NOTE | 2024-08-12 15:40 | HO.WOUND ---
Wound Consult:Follow up Todays assessment was completed with Dr. Donato. Patient and family expressed d/c plan is for discharge to a facility on Hospice. Mani expressed not wanting to go home on hospice at this time. Mani was noted to be in good spirits with his family at bedside - he openly discussed his desire to seek comfort care with hospice. He continues to endorse pain to the coccyx / sacral area, and shortness of breath. Dressing was removed and skin assessed. Dr. Donato assessed wound bed to be Dermis layer and in fact not slough despite its appearance. She stages the wound as a Stage 2 Pressure Injury. We discussed topical recommendations to include comfort and dignity. Along with Mani we agreed to continue with Medihoney for antimicrobial properties, moist wound healing but to push the dressing frequency to every 2-3 days and PRN. Patient reports when foam is in place the wound is significantly more comfortable. The left surgical incision was assessed - the incision no longer appears open but remains with yellow slough. Mild red erythema noted around incision site - somewhat improved from last assessment. Topical recommendations to be switched to Durafiber AG for moisture management and foam dressing and to change every 3 days and PRN. Topical Recommendations: 1. Turn and Reposition every 2 hours and as needed for patient comfort.? Use pillows or wedges to support off loading positions. 2. Off Load all bony prominences with use of pillows and heel boots if needed.? Apply Preventative foams where needed. ? 3. Monitor for incontinence and moisture control, use barrier creams when needed for prevention and treatment. 4. Provide adequate and supplemental nutrition.? 5. Continue low air loss mattress. Patient currently in Agility Pulsate bed. 6. When applicable maintain blood glucose levels per Providers order. Coccyx - Off Load Pressure with Q2 hr turns and use of pillows - Cleanse with PH balance spray or wipes, pat dry. ?Apply layer of Medihoney to wound bed. May cover with foam dressing to aid in pressure redistribution. Change every 2-3 days and PRN. Left Upper Back - Cleanse with NS moist gauze, pat dry. Apply skin prep to periwound. Cover wound bed with Durafiber AG followed by Foam dressing. Change every 3 days and PRN. Details from previous assessment: Wound Consult: Follow up 59yr old?male admitted to [facility] on 06/14/24 - See progress notes and H&P for detailed history.? Wound consult follow up for coccyx wound.? Patient agreeable to assessment and photo documentation.? Pulsate Bed continues to provide comfort, however overall patient continues to endorse pain and anxiety. Patient reports he has been drinking the ensure provided since yesterdays consultation. He reports he continues to feel less hopeful given his over all condition - Provider aware direct care nursing team aware - supportive listening provided. He was again offered supportive services he refused at this time. Left back incision site dressing changed - he tolerated well - incision continues to have area of dehiscence and yellow slough - saline moist dressing applied per surgery recommendations. Coccyx periwound continues to improve and the wound bed remains with adherent thin veil of yellow slough - medihoney appears to offer slight improvement in one application - recommend continuing with application daily. Will continue to follow. no new topical recommendations needed at this time. Details from previous assessment: Patient appears malnourished reports significant weight loss - current inpatient weight loss noted - provider notified and direct care nurse notified. Nutrition following and recommendations in place. Patient and I discussed his lack of appetite - he reports he is often to short of breath to eat. He reports he prefers the strawberry ensure these are currently on back order - advised to drink options available. Patient expressed fears of dying and his prognosis - offered spiritual consult - he refused. He was able to identify his familial support system - pictures are long his wall. Supportive listening was provided. The patient expressed fear and anxiety which he was assured were normal given his current diagnosis and current state of health. Unfortunately the patient appears sick / unwell and there is concern for wound worsening given his overall clinical picture. The wound bed remains with yellow slough the periwound is significantly improved. Topical treatment changed to Medihoney in an effort to increase autolytic debridement. Will continue to follow. Coccyx - Off Load Pressure with Q2 hr turns and use of pillows - Cleanse with PH balance spray or wipes, pat dry. ?Apply layer of Medihoney to wound bed. May cover with dry 2x2 then foam dressing to aid in pressure redistribution. We discussed patient refusal to reposition to left side give the dehiscence to his surgical site. Providers aware. Patient encouraged to allow for shifts and repositions education provided. Overall his respiratory and pain to the surgical site limit his options for repositions - will continue to offer and reposition as appropriate. Coccyx Etiology: Deetp Tissue Injury Measurements: 2cm x 3cm x 0.2cm Wound Bed: pale wound bed with purple nonblanchable areas Drainage / Odor: none Edges: ? irregular Claudia wound: ?red pink blanchable tissue - No Induration, Fluctuance or Warmth noted Pain: painful to assessment Goals of Treatment: ? off load pressure and foam dressing to air in pressure redistribution Nutrition following with supplements in place. Recommendations: 1. Turn and Reposition every 2 hours and as needed for patient comfort.? Use pillows or wedges to support off loading positions. 2. Off Load all bony prominences with use of pillows and heel boots if needed.? Apply Preventative foams where needed. ? 3. Monitor for incontinence and moisture control, use barrier creams when needed for prevention and treatment. 4. Provide adequate and supplemental nutrition.? 5. Continue low air loss mattress. 6. When applicable maintain blood glucose levels per Providers order. Coccyx - Off Load Pressure with Q2 hr turns and use of pillows - Cleanse with PH balance spray or wipes, pat dry. ?Apply thin layer of Triad to wound bed. Do not remove all of paste between applications as this may cause further skin damage.? Cover with foam dressing to aid in off loading and protection from friction. Change every 5 days and PRN. Re-consult wound care Nurse for wound deterioration or wound changes.
--- NOTE | 2024-08-12 19:26 | HO.PM.IMPN ---
Subjective Subjective Date of Service: 08/12/24 Interval History: S/P pneumonectomy on 07/17/2024 Biopsy showing adenocarcinoma of lung Extubated on the , developed flash pulmonary edema, treated with Lasix and ICU No acute events overnight Complains of same old, same old side and back pain Denies SOB or difficulty breathing Family at bedside, requested meeting for signing [facility]OL[facility] and hospice consideration Pt wants to continue being Full Code for now Considering hospice Review of Systems Review of Systems: Yes all other systems are reviewed and are negative Physical Exam Vital Signs: Vital Signs: Last Vital Signs Temp 98.0 F 08/12/24 19:00 Pulse 78 08/12/24 19:00 Resp 18 08/12/24 19:00 BP 124/76 08/12/24 19:00 Pulse Ox 95 08/12/24 19:00 O2 Del Method Room Air 08/12/24 19:00 O2 Flow Rate 4 08/12/24 15:13 FiO2 40 08/06/24 08:00 BMI result Body Mass Index 17.1 General: AOx3, no acute distress. Frail-looking and emaciated Resp: Right lung rhonchi, left lung breath sounds severely diminished CVS: S1, S2, RRR GI: +BS, NT, no distention Skin: Warm, dry Neuro: Cranial nerves II-XII grossly intact bilaterally. Motor grossly intact bilaterally Extremities: No edema Psych: Appropriate affect Objective Data Active Medications Acetaminophen (Acetaminophen 325 Mg Tablet) 650 mg PO Q6H PRN PRN Reason: Pain, Moderate(Pain Scale 4-6) Last Admin: 08/12/24 12:59 Dose: 650 mg Documented By: MARIA ELENA Benzonatate (Benzonatate 100 Mg Capsule) 100 mg PO TID PRN PRN Reason: Cough Last Admin: 08/10/24 12:29 Dose: 100 mg Documented By: SHOSHANA Docusate Sodium (Docusate Sodium 100 Mg Capsule) 100 mg PO BID [facility] Last Admin: 08/12/24 08:08 Dose: 100 mg Documented By: SHOSHANA Furosemide (Furosemide 40 Mg/4 Ml Vial) 40 mg IVPUSH DAILY [facility]; Protocol Last Admin: 08/12/24 08:08 Dose: 40 mg Documented By: SHOSHANA Guaifenesin (Guaifenesin La 600 Mg Tab.Er.12h) 600 mg PO BID [facility] Last Admin: 08/12/24 08:08 Dose: 600 mg Documented By: SHOSHANA Heparin Sodium (Porcine) (Heparin Sodium,Porcine 5,000 Unit/Ml Vial) 5,000 unit SUBCUT Q12H [facility] Last Admin: 08/12/24 08:08 Dose: 5,000 unit Documented By: SHOSHANA Hydroxyzine HCl (Hydroxyzine Hcl 25 Mg Tablet) 25 mg PO Q6H PRN PRN Reason: anxiety/restlessness Last Admin: 08/11/24 15:18 Dose: 25 mg Documented By: MARGRET Midodrine (Midodrine Hcl 5 Mg Tablet) 15 mg PO Q6H [facility] Last Admin: 08/12/24 15:52 Dose: 15 mg Documented By: DAREK Ondansetron HCl (Ondansetron Hcl 4 Mg/2 Ml Vial) 4 mg IVPUSH Q8H PRN PRN Reason: Nausea and Vomiting Last Admin: 07/18/24 21:28 Dose: 4 mg Documented By: KIARRA Oxycodone HCl (Oxycodone Hcl Immed Release 5 Mg Tablet) 10 mg PO Q4H PRN PRN Reason: Pain, Severe (Pain Scale 7-10) Last Admin: 08/12/24 18:18 Dose: 10 mg Documented By: MARIA ELENA Oxycodone HCl (Oxycodone Hcl Er 10 Mg Tab.Er.12h) 10 mg PO BID [facility] Last Admin: 08/12/24 08:08 Dose: 10 mg Documented By: SHOSHANA Polyethylene Glycol (Polyethylene Glycol 3350 17 Gm Powd.Pack) 17 gm PO DAILY [facility] Last Admin: 08/12/24 08:09 Dose: Not Given Documented By: SHOSHANA Non-Admin Reason: Patient Refused Sodium Biphosphate/Sodium Phosphate (Sodium Phosphate,Jessamine-Dibasic 133 Ml Enema) 133 ml MO ONCE PRN PRN Reason: Constipation Last Admin: 07/25/24 18:05 Dose: 133 ml Documented By: CRYSTAL Sodium Chloride (0.9 % Sodium Chloride Flush 10 Ml Syringe) 5 ml IVFLUSH QSHIFT [facility] Last Admin: 08/12/24 15:53 Dose: 5 ml Documented By: DAREK Labs 08/03/24 08:08/03/24 08:01 Assessment and Plan (1) Adenocarcinoma, lung: Status: Acute (2) Generalized weakness: Status: Acute Assessment and Plan: 59-year-old gentleman, recent 30+ pack-year smoker admitted on 06/14/2024 with hypoxia and multifocal pneumonia with abscesses. Patient has been treated with empiric antibiotics with essentially negative cultures. His bronchoscopic lavage also had essentially negative cultures. However, clinically his pulmonary abscess got worse an he had an attempted left lower lobectomy on 07/17/2024, however he required completion left pneumonectomy, now being monitored in the intensive care unit. Extubated 07/18/2024. 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 decompensated on 07/30 and initially placed on Highflow Currently on 4L NC Code Status Long discussion w/pt and family on 08/12 about code satus Pt currently wished to remain full code but persue possible hospice treatment Family with [facility] form not yet filled out; would like additional time to speak to pt plan: incentive spirometry, mobilization, chest percussion therapy, taper oxygen down as tolerated Thoracic surgery input appreciated: CXR 07/30 with increasing pneumonitis- unfortunately likely due to lymphovascular invasion Repeat CXR -unchanged completed cefepime/flagyl,Overall poor prognosis ,oxygen tapered to 4liters d/w oncology and pulm: chest ct -Post left pneumonectomy there is moderate fluid in the left hemithorax with ipsilateral mediastinal shift.There is airspace consolidation with cystic changes and right lower lobe. Chronic interstitial thickening, cystic changes and emphysematous changes are seen in the right upper lobe . 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 oncology d/w patient:patient that he does not have PD-L1 or any actionable mutation that would make him eligible for targeted therapy. At this time he is too frail to receive intravenous chemotherapy. This can be addressed as an outpatient after his discharge from rehab acute hypokalemia, resolved follolow BMP Transaminitis LFT improving left lower rib cage pain with elevated lft's abd us:Cholelithiasis and biliary sludge with borderline wall thickening and mildly prominent common bile duct. d/w surgery -? acute cholecystis and initially treated with antibiotics GI following as MRCP--Biliary sludge. 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 No gross choledocholithiasis. 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 monitor HypOtension thought to be Possibly secondary to hemodynamic changes post pneumonectomy, and temporaly required vasopressors. Continue Midodrine as needed for low BP moderate malnutrition: continue supplements, encourage PO intake DTi Coccyx area ( please see note from wound care 08/04/24): Turn and Reposition every 2 hours and as needed for patient comfort.? Use pillows or wedges to support off loading positions. Off Load all bony prominences with use of pillows and heel boots if needed.? Apply Preventative foams where needed. ? Monitor for incontinence and moisture control, use barrier creams when needed for prevention and treatment. Provide adequate and supplemental nutrition.? Continue low air loss mattress. When applicable maintain blood glucose levels per Providers order. Coccyx - Off Load Pressure with Q2 hr turns and use of pillows - Cleanse with PH balance spray or wipes, pat dry. ?Apply thin layer of Triad to wound bed. Do not remove all of paste between applications as this may cause further skin damage.? Cover with foam dressing to aid in off loading and protection from friction. Change every 5 days and PRN. dvt prophylax: s/c heaprin oncology d/w plan with patient/sister-awaiting rehab placement. Quality Stroke Does the patient have a stroke diagnosis?: No VTE Prior VTE?: No VTE Risk Level:: Medical - moderate - high VTE Device Contraindication: Treatment Not Indicated VTE Drug Contraindication: N/A - Med Ordered
[2024-08-13] VITALS (8 sets, daily range): BP systolic 110–132; BP diastolic 64–80; PULSE 63–92; RESP 17–18; TEMP 36–36.3; O2SAT 92–97; BMI 17.2
[2024-08-13] MEDS: Midodrine HCl 5 MG TABLET 15 MG PO ×4 (03:02→20:26)
[2024-08-13] MEDS: oxyCODONE HCl Immed Release 5 MG TABLET 10 MG PO ×2 (03:56→10:48)
[2024-08-13] MEDS: Furosemide 40 MG/4 ML VIAL IVPUSH (08:06)
[2024-08-13] MEDS: oxyCODONE HCl ER 10 MG TAB.ER.12H PO ×2 (08:06→20:27)
[2024-08-13] MEDS: Docusate Sodium 100 MG CAPSULE PO ×2 (08:06→20:26)
[2024-08-13] MEDS: 0.9 % Sodium Chloride Flush 10 ML SYRINGE 5 ML IVFLUSH ×3 (08:08→22:59)
[2024-08-13] MEDS: polyethylene glycoL 3350 17 GM POWD.PACK PO (08:09)
[2024-08-13] MEDS: guaiFENesin LA 600 MG TAB.ER.12H PO ×2 (08:09→20:26)
[2024-08-13] MEDS: Heparin Sodium,Porcine 5,000 UNIT/ML VIAL 5000 UNIT SUBCUT ×2 (08:10→20:27)
[2024-08-13 08:41] LABS: Hemoglobin 14.1 g/dl (14.0-18.0); Mean Corpuscular HGB Conc 34.4 g/dl (31.0-36.0); Mean Corpuscular Hemoglobin 30.3 pg (27.0-33.0); Mean Platelet Volume 8.9 fL (9.4-12.4); Red Blood Count 4.66 X10*6/uL (4.60-5.80); Red Cell Distribution Width 13.7 % (11.0-16.0); White Blood Count 10.5 X10*3/uL (4.8-10.8)
[2024-08-13 08:44] LABS: Platelet Count 389 X10*3/uL (160-400)
[2024-08-13 08:52] LABS: Anion Gap 14 (12-20); Blood Urea Nitrogen 17 mg/dL (9-16); Calcium 10.2 mg/dL (8.4-10.2); Carbon Dioxide 35 mmol/L (22-29); Chloride 86 mmol/L (96-108); Creatinine Clr Calc Pharmacy 85.2; Estimated Glomerular Filt Rate > 60; Glucose Random 109 mg/dL (60-115); Potassium 3.7 mmol/L (3.3-5.1); Sodium 131 mmol/L (135-145)
--- NOTE | 2024-08-13 09:49 | P.PNIM_ITS ---
Subjective Subjective Date of Service: 08/13/24 Interval History: S/P pneumonectomy on 07/17/2024 Biopsy showing adenocarcinoma of lung Extubated on the , developed flash pulmonary edema, treated with Lasix and ICU No acute events overnight, feels tired Complains of same old, same old side and back pain Denies SOB or difficulty breathing O2 requirement grayson to 2 lits Review of Systems Review of Systems: Yes all other systems are reviewed and are negative Physical Exam 2 Vital Signs: Vital Signs: Last Vital Signs Temp 96.8 F 08/13/24 07:51 Pulse 63 08/13/24 07:51 Resp 18 08/13/24 07:51 BP 111/69 08/13/24 07:51 Pulse Ox 97 08/13/24 07:51 O2 Del Method Nasal Cannula 08/13/24 07:51 O2 Flow Rate 2 08/13/24 07:51 FiO2 40 08/06/24 08:00 BMI result Body Mass Index 17.2 General: AOx3, no acute distress. Frail-looking and emaciated Resp: Right lung rhonchi, left lung breath sounds severely diminished CVS: S1, S2, RRR GI: +BS, NT, no distention Skin: Warm, dry Neuro: Cranial nerves II-XII grossly intact bilaterally. Motor grossly intact bilaterally Extremities: No edema Psych: Appropriate affect Objective Data Active Medications Acetaminophen (Acetaminophen 325 Mg Tablet) 650 mg PO Q6H PRN PRN Reason: Pain, Moderate(Pain Scale 4-6) Last Admin: 08/12/24 12:59 Dose: 650 mg Documented By: MARIA ELENA Benzonatate (Benzonatate 100 Mg Capsule) 100 mg PO TID PRN PRN Reason: Cough Last Admin: 08/10/24 12:29 Dose: 100 mg Documented By: SHOSHANA Docusate Sodium (Docusate Sodium 100 Mg Capsule) 100 mg PO BID [facility] Last Admin: 08/13/24 08:06 Dose: 100 mg Documented By: ANAM Furosemide (Furosemide 40 Mg/4 Ml Vial) 40 mg IVPUSH DAILY [facility]; Protocol Last Admin: 08/13/24 08:06 Dose: 40 mg Documented By: ANAM Guaifenesin (Guaifenesin La 600 Mg Tab.Er.12h) 600 mg PO BID [facility] Last Admin: 08/13/24 08:09 Dose: 600 mg Documented By: ANAM Heparin Sodium (Porcine) (Heparin Sodium,Porcine 5,000 Unit/Ml Vial) 5,000 unit SUBCUT Q12H [facility] Last Admin: 08/13/24 08:10 Dose: 5,000 unit Documented By: ANAM Hydroxyzine HCl (Hydroxyzine Hcl 25 Mg Tablet) 25 mg PO Q6H PRN PRN Reason: anxiety/restlessness Last Admin: 08/11/24 15:18 Dose: 25 mg Documented By: MARGRET Midodrine (Midodrine Hcl 5 Mg Tablet) 15 mg PO Q6H [facility] Last Admin: 08/13/24 08:09 Dose: 15 mg Documented By: ANAM Ondansetron HCl (Ondansetron Hcl 4 Mg/2 Ml Vial) 4 mg IVPUSH Q8H PRN PRN Reason: Nausea and Vomiting Last Admin: 07/18/24 21:28 Dose: 4 mg Documented By: KIARRA Oxycodone HCl (Oxycodone Hcl Immed Release 5 Mg Tablet) 10 mg PO Q4H PRN PRN Reason: Pain, Severe (Pain Scale 7-10) Last Admin: 08/13/24 03:56 Dose: 10 mg Documented By: EMEKA Oxycodone HCl (Oxycodone Hcl Er 10 Mg Tab.Er.12h) 10 mg PO BID [facility] Last Admin: 08/13/24 08:06 Dose: 10 mg Documented By: ANAM Polyethylene Glycol (Polyethylene Glycol 3350 17 Gm Powd.Pack) 17 gm PO DAILY [facility] Last Admin: 08/13/24 08:09 Dose: 17 gm Documented By: ANAM Sodium Biphosphate/Sodium Phosphate (Sodium Phosphate,Webb-Dibasic 133 Ml Enema) 133 ml RI ONCE PRN PRN Reason: Constipation Last Admin: 07/25/24 18:05 Dose: 133 ml Documented By: CRYSTAL Sodium Chloride (0.9 % Sodium Chloride Flush 10 Ml Syringe) 5 ml IVFLUSH QSHIFT [facility] Last Admin: 08/13/24 08:08 Dose: 5 ml Documented By: ANAM Labs 08/13/24 08:34 08/13/24 08:27 Labs: Laboratory Results - last 24 hr 08/13/24 08/13/24 08:27 08:34 MCV 88.0 MCH 30.3 MCHC 34.4 RDW 13.7 Plt Count 389 D MPV 8.9 L Absolute Nucleated RBC 0.000 Nucleated RBC % (auto) 0.0 Anion Gap 14 Estim Creat Clear Calc 85.2 Estimated GFR > 60 Random Glucose 109 Calcium 10.2 D Assessment and Plan (1) Adenocarcinoma, lung: Status: Acute (2) Generalized weakness: Status: Acute Plan 59-year-old gentleman, recent 30+ pack-year smoker admitted on 06/14/2024 with hypoxia and multifocal pneumonia with abscesses. Patient has been treated with empiric antibiotics with essentially negative cultures. His bronchoscopic lavage also had essentially negative cultures. However, clinically his pulmonary abscess got worse an he had an attempted left lower lobectomy on 07/17/2024, however he required completion left pneumonectomy, now being monitored in the intensive care unit. Extubated 07/18/2024. 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 decompensated on 07/30 and initially placed on Highflow Currently on 2L NC Incentive spirometry, mobilization, chest percussion therapy, taper oxygen down as tolerated surgery input appreciated: CXR 07/30 with increasing pneumonitis- unfortunately likely due to lymphovascular invasion Repeat CXR -unchanged completed cefepime/flagyl,Overall poor prognosis ,oxygen tapered to 2 liters d/w oncology and pulm: chest ct -Post left pneumonectomy there is moderate fluid in the left hemithorax with ipsilateral mediastinal shift.There is airspace consolidation with cystic changes and right lower lobe. Chronic interstitial thickening, cystic changes and emphysematous changes are seen in the right upper lobe . 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 oncology d/w patient:patient that he does not have PD-L1 or any actionable mutation that would make him eligible for targeted therapy. At this time he is too frail to receive intravenous chemotherapy. This can be addressed as an outpatient after his discharge from rehab acute hypokalemia, resolved follolow BMP Transaminitis LFT improving left lower rib cage pain with elevated lft's abd us:Cholelithiasis and biliary sludge with borderline wall thickening and mildly prominent common bile duct. d/w surgery -? acute cholecystis and initially treated with antibiotics GI following as MRCP--Biliary sludge. 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 No gross choledocholithiasis. 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 monitor HypOtension thought to be Possibly secondary to hemodynamic changes post pneumonectomy, and temporaly required vasopressors. Continue Midodrine as needed for low BP moderate malnutrition: continue supplements, encourage PO intake DTI Coccyx area ( please see note from wound care 08/04/24): Turn and Reposition every 2 hours and as needed for patient comfort.? Use pillows or wedges to support off loading positions. Off Load all bony prominences with use of pillows and heel boots if needed.? Apply Preventative foams where needed. ? Monitor for incontinence and moisture control, use barrier creams when needed for prevention and treatment. Provide adequate and supplemental nutrition.? Continue low air loss mattress. When applicable maintain blood glucose levels per Providers order. Coccyx - Off Load Pressure with Q2 hr turns and use of pillows - Cleanse with PH balance spray or wipes, pat dry. ?Apply thin layer of Triad to wound bed. Do not remove all of paste between applications as this may cause further skin damage.? Cover with foam dressing to aid in off loading and protection from friction. Change every 5 days and PRN. dvt prophylax: s/c heaprin oncology d/w plan with patient/sister-awaiting rehab placement. Code Status Long discussion w/pt and family on 08/12 about code satus Pt currently wished to remain full code but pursue possible hospice treatment Family with [facility] form not yet filled out; would like additional time to speak to pt Quality Stroke Does the patient have a stroke diagnosis?: No VTE Prior VTE?: No VTE Risk Level:: Medical - moderate - high VTE Device Contraindication: Treatment Not Indicated VTE Drug Contraindication: N/A - Med Ordered
--- NOTE | 2024-08-13 10:52 | PC.NURSE ---
RN discussed with patient removal of trevino,medicated for pain ,patient will call RN when ready
--- NOTE | 2024-08-13 13:40 | MHC.CM.PN ---
PER SNF, PT'S [employer] INSURANCE DOES NOT HAVE A CARE HOME BENEFIT. PT'S HCP ROSALINDA IS AWARE AND WILL COORDINATE WITH [facility] TO START [facility]. [facility] UPDATED AND WILL REACH OUT TO ROSALINDA. PT HAS REQUESTED HOSPICE SERVICES IN A SNF. [facility] ARE FOLLOWING. [facility] FOLLOWING IF DC WITHIN SERVICE AREA. CM WILL CONTINUE TO FOLLOW.
--- NOTE | 2024-08-13 18:38 | PC.NURSE ---
Patient unable to urinate yet,bladder scanned for 29 ml ,denies discomfort,will monitor
[2024-08-14] VITALS (8 sets, daily range): BP systolic 112–142; BP diastolic 74–80; PULSE 71–94; RESP 17–20; TEMP 36.2–36.8; O2SAT 93–97; BMI 16.8
[2024-08-14] MEDS: Midodrine HCl 5 MG TABLET 15 MG PO ×4 (03:22→20:39)
--- NOTE | 2024-08-14 03:34 | PC.NURSE ---
0325- Patient had his trevino catheter removed previous shift/day and still has not voided. He has been monitored closely, urinal within reach, alerted to call staff for assistance, and he denies any bladder pain or pressure. back at 2234 his bladder scan revealed 265ml, and now at 324 scan shows 319ml. He still denies bladder pain or pressure or the urge to void. Will continue to monitor. Educated on the need for straight catherization if unable to void soon or amount increases and he stated Im not going thru that again. Will monitor.
[2024-08-14] MEDS: oxyCODONE HCl Immed Release 5 MG TABLET 10 MG PO ×4 (06:26→23:34)
--- NOTE | 2024-08-14 06:33 | PC.NURSE ---
Addendum entered by Vi Mckenna RN 08/14/24 07:13: 0650-return note from Hospitalist, will pass information to day md team to decide plan. Day RN made aware and will follow thru Original Note: 0600- Patient still unable to void, attempts made with no results, bladder can at this time is 426ml. Hospitalist alerted, awaiting further orders. Patient stated he will need to be held down as he remembers a catheter is extremely painful for him. cont to wait and monitor. medicated with oxycodone 10mg po at 0627 for 8/10 back and body pain, unrelated to his bladder.
[2024-08-14] MEDS: 0.9 % Sodium Chloride Flush 10 ML SYRINGE 5 ML IVFLUSH ×2 (07:15→14:41)
--- NOTE | 2024-08-14 07:26 | PC.NURSE ---
Rizvi was removed 08/13 at noon time ,was requested by infection control at MD rounds
--- NOTE | 2024-08-14 07:50 | PC.NURSE ---
STR cath inserted by tennis ball cover cementernadia Shultz cath used ,patient tolerated it very well reported min discomfort,draining vira color urine
[2024-08-14] MEDS: Furosemide 40 MG/4 ML VIAL IVPUSH (08:00)
[2024-08-14] MEDS: Heparin Sodium,Porcine 5,000 UNIT/ML VIAL 5000 UNIT SUBCUT ×2 (08:01→20:38)
[2024-08-14] MEDS: Docusate Sodium 100 MG CAPSULE PO ×2 (08:01→20:40)
[2024-08-14] MEDS: oxyCODONE HCl ER 10 MG TAB.ER.12H PO ×2 (08:01→20:40)
[2024-08-14] MEDS: polyethylene glycoL 3350 17 GM POWD.PACK PO (08:02)
[2024-08-14] MEDS: guaiFENesin LA 600 MG TAB.ER.12H PO ×2 (08:12→20:39)
[2024-08-14] MEDS: hydrOXYzine HCL 25 MG TABLET PO ×2 (09:15→22:28)
--- NOTE | 2024-08-14 10:50 | HO.PM.IMPN ---
Subjective Subjective Date of Service: 08/14/24 Interval History: S/P pneumonectomy on 07/17/2024 Biopsy showing adenocarcinoma of lung Extubated on the , developed flash pulmonary edema, treated with Lasix and ICU No acute events overnight, feels tired Complains of same old, same old side and back pain Denies SOB or difficulty breathing O2 requirement at 2 lits c/o not sleeping at night d/t interuption Review of Systems Review of Systems: Yes all other systems are reviewed and are negative Physical Exam Vital Signs: Vital Signs: Last Vital Signs Temp 98.2 F 08/14/24 07:27 Pulse 92 08/14/24 07:27 Resp 18 08/14/24 07:27 BP 122/80 08/14/24 07:27 Pulse Ox 93 08/14/24 07:27 O2 Del Method Nasal Cannula 08/14/24 07:27 O2 Flow Rate 2 08/14/24 07:27 FiO2 40 08/06/24 08:00 BMI result Body Mass Index 16.8 General: AOx3, no acute distress. Frail-looking and emaciated Resp: Right lung rhonchi, left lung breath sounds severely diminished CVS: S1, S2, RRR GI: +BS, NT, no distention Skin: Warm, dry Neuro: Cranial nerves II-XII grossly intact bilaterally. Motor grossly intact bilaterally Extremities: No edema Psych: Appropriate affect Objective Data Active Medications Acetaminophen (Acetaminophen 325 Mg Tablet) 650 mg PO Q6H PRN PRN Reason: Pain, Moderate(Pain Scale 4-6) Last Admin: 08/12/24 12:59 Dose: 650 mg Documented By: MARIA ELENA Benzonatate (Benzonatate 100 Mg Capsule) 100 mg PO TID PRN PRN Reason: Cough Last Admin: 08/10/24 12:29 Dose: 100 mg Documented By: SHOSHANA Docusate Sodium (Docusate Sodium 100 Mg Capsule) 100 mg PO BID [facility] Last Admin: 08/14/24 08:01 Dose: 100 mg Documented By: ANAM Furosemide (Furosemide 40 Mg/4 Ml Vial) 40 mg IVPUSH DAILY [facility]; Protocol Last Admin: 08/14/24 08:00 Dose: 40 mg Documented By: ANAM Guaifenesin (Guaifenesin La 600 Mg Tab.Er.12h) 600 mg PO BID [facility] Last Admin: 08/14/24 08:12 Dose: 600 mg Documented By: ANAM Heparin Sodium (Porcine) (Heparin Sodium,Porcine 5,000 Unit/Ml Vial) 5,000 unit SUBCUT Q12H [facility] Last Admin: 08/14/24 08:01 Dose: 5,000 unit Documented By: ANAM Hydroxyzine HCl (Hydroxyzine Hcl 25 Mg Tablet) 25 mg PO Q6H PRN PRN Reason: anxiety/restlessness Last Admin: 08/14/24 09:15 Dose: 25 mg Documented By: ANAM Midodrine (Midodrine Hcl 5 Mg Tablet) 15 mg PO Q6H [facility] Last Admin: 08/14/24 08:02 Dose: 15 mg Documented By: ANAM Ondansetron HCl (Ondansetron Hcl 4 Mg/2 Ml Vial) 4 mg IVPUSH Q8H PRN PRN Reason: Nausea and Vomiting Last Admin: 07/18/24 21:28 Dose: 4 mg Documented By: KIARRA Oxycodone HCl (Oxycodone Hcl Immed Release 5 Mg Tablet) 10 mg PO Q4H PRN PRN Reason: Pain, Severe (Pain Scale 7-10) Last Admin: 08/14/24 10:20 Dose: 10 mg Documented By: SHOSHANA Oxycodone HCl (Oxycodone Hcl Er 10 Mg Tab.Er.12h) 10 mg PO BID [facility] Last Admin: 08/14/24 08:01 Dose: 10 mg Documented By: ANAM Polyethylene Glycol (Polyethylene Glycol 3350 17 Gm Powd.Pack) 17 gm PO DAILY [facility] Last Admin: 08/14/24 08:02 Dose: 17 gm Documented By: ANAM Sodium Biphosphate/Sodium Phosphate (Sodium Phosphate,[place]-Dibasic 133 Ml Enema) 133 ml OR ONCE PRN PRN Reason: Constipation Last Admin: 07/25/24 18:05 Dose: 133 ml Documented By: CRYSTAL Sodium Chloride (0.9 % Sodium Chloride Flush 10 Ml Syringe) 5 ml IVFLUSH QSHIFT [facility] Last Admin: 08/14/24 07:15 Dose: 5 ml Documented By: ANAM Labs 08/13/24 08:34 08/13/24 08:27 Assessment and Plan (1) Adenocarcinoma, lung: Status: Acute (2) Generalized weakness: Status: Acute Plan 59-year-old gentleman, recent 30+ pack-year smoker admitted on 06/14/2024 with hypoxia and multifocal pneumonia with abscesses. Patient has been treated with empiric antibiotics with essentially negative cultures. His bronchoscopic lavage also had essentially negative cultures. However, clinically his pulmonary abscess got worse an he had an attempted left lower lobectomy on 07/17/2024, however he required completion left pneumonectomy, now being monitored in the intensive care unit. Extubated 07/18/2024. 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 decompensated on 07/30 and initially placed on Highflow Currently on 2L NC Incentive spirometry, mobilization, chest percussion therapy, taper oxygen down as tolerated surgery input appreciated: CXR 07/30 with increasing pneumonitis- unfortunately likely due to lymphovascular invasion Repeat CXR -unchanged completed cefepime/flagyl,Overall poor prognosis ,oxygen tapered to 2 liters d/w oncology and pulm: chest ct -Post left pneumonectomy there is moderate fluid in the left hemithorax with ipsilateral mediastinal shift.There is airspace consolidation with cystic changes and right lower lobe. Chronic interstitial thickening, cystic changes and emphysematous changes are seen in the right upper lobe . 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 oncology d/w patient:patient that he does not have PD-L1 or any actionable mutation that would make him eligible for targeted therapy. At this time he is too frail to receive intravenous chemotherapy. This can be addressed as an outpatient after his discharge from rehab. Family will meet later today to discuss and finalized goals of care acute hypokalemia, resolved follolow BMP Transaminitis LFT improving left lower rib cage pain with elevated lft's abd us:Cholelithiasis and biliary sludge with borderline wall thickening and mildly prominent common bile duct. d/w surgery -? acute cholecystis and initially treated with antibiotics GI following as MRCP--Biliary sludge. 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 No gross choledocholithiasis. 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 monitor HypOtension thought to be Possibly secondary to hemodynamic changes post pneumonectomy, and temporaly required vasopressors. Continue Midodrine as needed for low BP moderate malnutrition: continue supplements, encourage PO intake DTI Coccyx area ( please see note from wound care 08/04/24): Turn and Reposition every 2 hours and as needed for patient comfort.? Use pillows or wedges to support off loading positions. Off Load all bony prominences with use of pillows and heel boots if needed.? Apply Preventative foams where needed. ? Monitor for incontinence and moisture control, use barrier creams when needed for prevention and treatment. Provide adequate and supplemental nutrition.? Continue low air loss mattress. When applicable maintain blood glucose levels per Providers order. Coccyx - Off Load Pressure with Q2 hr turns and use of pillows - Cleanse with PH balance spray or wipes, pat dry. ?Apply thin layer of Triad to wound bed. Do not remove all of paste between applications as this may cause further skin damage.? Cover with foam dressing to aid in off loading and protection from friction. Change every 5 days and PRN. dvt prophylax: s/c heaprin oncology d/w plan with patient/sister-awaiting rehab placement. Code Status Long discussion w/pt and family on 08/12 about code satus Pt currently wished to remain full code but pursue possible hospice treatment Family with [facility] form not yet filled out; would like additional time to speak to pt Quality Stroke Does the patient have a stroke diagnosis?: No VTE Prior VTE?: No VTE Risk Level:: Medical - moderate - high VTE Device Contraindication: Treatment Not Indicated VTE Drug Contraindication: N/A - Med Ordered
--- NOTE | 2024-08-14 12:57 | MHC.CLN ---
F/U MOST RECENT PO APPEARS TO BE GOOD. DIET=REGULAR CONTINUE TO PROVIDE SUPPLEMENTS PT ACCEPTS TO PROMOTE WOUND HEALING: ENSURE BID PROVIDES 700KCALS, 40G PROTEIN (PREFERS STRAWBERRY) MAGIC CUP BID PROVIDES 580KCALS, 18G PROTEIN SKIN WITH STAGE II PRESSURE INJURY TO COCCYX. DX METASTATIC ADENOCARCINOMA OF LUNG. POOR PROGNOSIS. CONTINUE TO MONITOR PO INTAKE AND ENCOURAGE SUPPLEMENTS.
--- NOTE | 2024-08-14 14:26 | MHC.CM.PN ---
EMR REVIEWED, CM MET W/PT AND SISTER/HCP ROSALINDA AT BEDSIDE, PT AND ROSALINDA AGREEABLE TO [facility] SUBMITTING FOR AUTH, PER MULTIPLE CONVERSATIONS TODAY PT WOULD LIKE TO DC FULL CODE ON PRISON BENEFIT, PT AND ROSALINDA WILL REQUEST HOSPICE AT SNF ONCE PT IS READY. ANTIC PT WILL DC ONCE INS AUTH RECEIVED.
--- NOTE | 2024-08-14 16:43 | PC.NURSE ---
Offered assistance with voiding multiple time this shift but patient is refusing each time
--- NOTE | 2024-08-14 17:21 | PC.NURSE ---
Patient unable to urinate,str cath for 300 ml,patient tolerated it well
--- NOTE | 2024-08-14 17:24 | PC.NURSE ---
Patient refuses to have bed linen changed at this time
[2024-08-15 04:00] VITALS: BP 130/83; PULSE 92; RESP 20; TEMP 36.5; O2SAT 93
[2024-08-15] MEDS: Midodrine HCl 5 MG TABLET 15 MG PO ×4 (04:58→20:01)
[2024-08-15 06:00] VITALS: BMI 17.4
--- NOTE | 2024-08-15 07:12 | PC.NURSE ---
Late entry: Throughout the maintenance mechanic 2nd shift, pt was unable to urinate on his own. Pt was bladder scan for 197ml at 05:10. Previous shift pt was straight cath twice w/ the last one at 17:30 for output of 300ml. Pt denies any pain or discomfort w/ bladder. MD Adorno was notified of the situation. No new orders were given at this time. Pt was encouraged to use the urinal when needed. Will continue to monitor pt's output.
[2024-08-15 07:40] VITALS: BP 123/70; PULSE 62; RESP 20; TEMP 36.9; O2SAT 95
[2024-08-15] MEDS: Furosemide 40 MG/4 ML VIAL IVPUSH (08:28)
[2024-08-15] MEDS: 0.9 % Sodium Chloride Flush 10 ML SYRINGE 5 ML IVFLUSH ×2 (08:28→17:03)
--- NOTE | 2024-08-15 08:29 | HO.PM.IMPN ---
Subjective Subjective Date of Service: 08/15/24 Interval History: S/P pneumonectomy on 07/17/2024 Biopsy showing adenocarcinoma of lung Extubated on the , developed flash pulmonary edema, treated with Lasix and ICU No acute events overnight, feels tired Complains of same old, same old side and back pain Denies SOB or difficulty breathing O2 requirement at 2 to 4 lits Feels realy good today, slept well Review of Systems Review of Systems: Yes all other systems are reviewed and are negative Physical Exam Vital Signs: Vital Signs: Last Vital Signs Temp 98.5 F 08/15/24 07:40 Pulse 62 08/15/24 07:40 Resp 20 08/15/24 07:40 BP 123/70 08/15/24 07:40 Pulse Ox 95 08/15/24 07:40 O2 Del Method Nasal Cannula 08/15/24 07:40 O2 Flow Rate 4.0 08/15/24 07:40 FiO2 40 08/06/24 08:00 BMI result Body Mass Index 17.4 Objective Data Active Medications Acetaminophen (Acetaminophen 325 Mg Tablet) 650 mg PO Q6H PRN PRN Reason: Pain, Moderate(Pain Scale 4-6) Last Admin: 08/12/24 12:59 Dose: 650 mg Documented By: MARIA ELENA Benzonatate (Benzonatate 100 Mg Capsule) 100 mg PO TID PRN PRN Reason: Cough Last Admin: 08/10/24 12:29 Dose: 100 mg Documented By: SHOSHANA Docusate Sodium (Docusate Sodium 100 Mg Capsule) 100 mg PO BID [facility] Last Admin: 08/14/24 20:40 Dose: 100 mg Documented By: SOLE Furosemide (Furosemide 40 Mg/4 Ml Vial) 40 mg IVPUSH DAILY [facility]; Protocol Last Admin: 08/14/24 08:00 Dose: 40 mg Documented By: ANAM Guaifenesin (Guaifenesin La 600 Mg Tab.Er.12h) 600 mg PO BID [facility] Last Admin: 08/14/24 20:39 Dose: 600 mg Documented By: SOLE Heparin Sodium (Porcine) (Heparin Sodium,Porcine 5,000 Unit/Ml Vial) 5,000 unit SUBCUT Q12H [facility] Last Admin: 08/14/24 20:38 Dose: 5,000 unit Documented By: SOLE Hydroxyzine HCl (Hydroxyzine Hcl 25 Mg Tablet) 25 mg PO Q6H PRN PRN Reason: anxiety/restlessness Last Admin: 08/14/24 22:28 Dose: 25 mg Documented By: SOLE Midodrine (Midodrine Hcl 5 Mg Tablet) 15 mg PO Q6H [facility] Last Admin: 08/15/24 04:58 Dose: 15 mg Documented By: SOLE Ondansetron HCl (Ondansetron Hcl 4 Mg/2 Ml Vial) 4 mg IVPUSH Q8H PRN PRN Reason: Nausea and Vomiting Last Admin: 07/18/24 21:28 Dose: 4 mg Documented By: KIARRA Oxycodone HCl (Oxycodone Hcl Immed Release 5 Mg Tablet) 10 mg PO Q4H PRN PRN Reason: Pain, Severe (Pain Scale 7-10) Last Admin: 08/14/24 23:34 Dose: 10 mg Documented By: SOLE Oxycodone HCl (Oxycodone Hcl Er 10 Mg Tab.Er.12h) 10 mg PO BID [facility] Last Admin: 08/14/24 20:40 Dose: 10 mg Documented By: SOLE Polyethylene Glycol (Polyethylene Glycol 3350 17 Gm Powd.Pack) 17 gm PO DAILY [facility] Last Admin: 08/14/24 08:02 Dose: 17 gm Documented By: ANAM Sodium Biphosphate/Sodium Phosphate (Sodium Phosphate,[place]-Dibasic 133 Ml Enema) 133 ml NE ONCE PRN PRN Reason: Constipation Last Admin: 07/25/24 18:05 Dose: 133 ml Documented By: CRYSTAL Sodium Chloride (0.9 % Sodium Chloride Flush 10 Ml Syringe) 5 ml IVFLUSH QSHIFT [facility] Last Admin: 08/15/24 00:12 Dose: Not Given Documented By: SOLE Non-Admin Reason: Previously Administered Labs 08/13/24 08:34 08/13/24 08:27 Assessment and Plan (1) Adenocarcinoma, lung: Status: Acute (2) Generalized weakness: Status: Acute Plan 59-year-old gentleman, recent 30+ pack-year smoker admitted on 06/14/2024 with hypoxia and multifocal pneumonia with abscesses. Patient has been treated with empiric antibiotics with essentially negative cultures. His bronchoscopic lavage also had essentially negative cultures. However, clinically his pulmonary abscess got worse an he had an attempted left lower lobectomy on 07/17/2024, however he required completion left pneumonectomy, now being monitored in the intensive care unit. Extubated 07/18/2024. 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 decompensated on 07/30 and initially placed on Highflow Currently on 2L NC Incentive spirometry, mobilization, chest percussion therapy, taper oxygen down as tolerated surgery input appreciated: CXR 07/30 with increasing pneumonitis- unfortunately likely due to lymphovascular invasion Repeat CXR -unchanged completed cefepime/flagyl,Overall poor prognosis ,oxygen tapered to 2 liters d/w oncology and pulm: chest ct -Post left pneumonectomy there is moderate fluid in the left hemithorax with ipsilateral mediastinal shift.There is airspace consolidation with cystic changes and right lower lobe. Chronic interstitial thickening, cystic changes and emphysematous changes are seen in the right upper lobe . 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 oncology d/w patient:patient that he does not have PD-L1 or any actionable mutation that would make him eligible for targeted therapy. At this time he is too frail to receive intravenous chemotherapy. This can be addressed as an outpatient after his discharge from rehab. Deciding on pursuing hospic care after discharge acute hypokalemia, resolved follolow BMP Transaminitis LFT improving left lower rib cage pain with elevated lft's abd us:Cholelithiasis and biliary sludge with borderline wall thickening and mildly prominent common bile duct. d/w surgery -? acute cholecystis and initially treated with antibiotics GI following as MRCP--Biliary sludge. 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 No gross choledocholithiasis. 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 monitor HypOtension thought to be Possibly secondary to hemodynamic changes post pneumonectomy, and temporaly required vasopressors. Continue Midodrine as needed for low BP moderate malnutrition: continue supplements, encourage PO intake DTI Coccyx area ( please see note from wound care 08/04/24): Turn and Reposition every 2 hours and as needed for patient comfort.? Use pillows or wedges to support off loading positions. Off Load all bony prominences with use of pillows and heel boots if needed.? Apply Preventative foams where needed. ? Monitor for incontinence and moisture control, use barrier creams when needed for prevention and treatment. Provide adequate and supplemental nutrition.? Continue low air loss mattress. When applicable maintain blood glucose levels per Providers order. Coccyx - Off Load Pressure with Q2 hr turns and use of pillows - Cleanse with PH balance spray or wipes, pat dry. ?Apply thin layer of Triad to wound bed. Do not remove all of paste between applications as this may cause further skin damage.? Cover with foam dressing to aid in off loading and protection from friction. Change every 5 days and PRN. dvt prophylax: s/c heaprin oncology d/w plan with patient/sister-awaiting rehab placement. Code Status Long discussion w/pt and family on 08/12 about code satus Pt currently wished to remain full code but pursue possible hospice treatment Family with [facility] form not yet filled out; would like additional time to speak to pt Ultimately to rehab Quality Stroke Does the patient have a stroke diagnosis?: No VTE Prior VTE?: No VTE Risk Level:: Medical - moderate - high VTE Device Contraindication: Treatment Not Indicated VTE Drug Contraindication: N/A - Med Ordered
[2024-08-15] MEDS: oxyCODONE HCl ER 10 MG TAB.ER.12H PO ×2 (08:30→20:01)
[2024-08-15] MEDS: Docusate Sodium 100 MG CAPSULE PO ×2 (08:30→20:01)
[2024-08-15] MEDS: polyethylene glycoL 3350 17 GM POWD.PACK PO (08:32)
[2024-08-15] MEDS: Heparin Sodium,Porcine 5,000 UNIT/ML VIAL 5000 UNIT SUBCUT ×2 (08:34→20:01)
[2024-08-15] MEDS: guaiFENesin LA 600 MG TAB.ER.12H PO ×2 (08:36→20:01)
[2024-08-15] MEDS: hydrOXYzine HCL 25 MG TABLET PO ×2 (09:07→22:18)
[2024-08-15 12:42] VITALS: BP 120/76; PULSE 95; RESP 20; TEMP 36; O2SAT 92
[2024-08-15] MEDS: oxyCODONE HCl Immed Release 5 MG TABLET 10 MG PO ×2 (15:00→23:55)
[2024-08-15 15:44] VITALS: BP 141/77; PULSE 100; RESP 18; TEMP 36.3; O2SAT 94
--- NOTE | 2024-08-15 16:25 | PC.NURSE ---
16 fr. coude catheter placed at 15:00 d/t urinary retenion, with M.D. order. Pt tolerated procedure well. 500cc clear dark yellow urine for immediate output
[2024-08-15 19:15] VITALS: BP 125/77; PULSE 82; RESP 18; TEMP 36.4; O2SAT 93
[2024-08-16] VITALS (7 sets, daily range): BP systolic 113–130; BP diastolic 67–90; PULSE 66–91; RESP 16–18; TEMP 36.1–36.6; O2SAT 91–94; BMI 17.4
[2024-08-16] MEDS: oxyCODONE HCl Immed Release 5 MG TABLET 10 MG PO ×4 (07:15→22:20)
[2024-08-16] MEDS: Heparin Sodium,Porcine 5,000 UNIT/ML VIAL 5000 UNIT SUBCUT ×2 (08:09→21:04)
[2024-08-16] MEDS: Furosemide 40 MG/4 ML VIAL IVPUSH (08:09)
[2024-08-16] MEDS: 0.9 % Sodium Chloride Flush 10 ML SYRINGE 5 ML IVFLUSH ×3 (08:09→21:06)
[2024-08-16] MEDS: Midodrine HCl 5 MG TABLET 15 MG PO ×3 (08:11→21:05)
[2024-08-16] MEDS: oxyCODONE HCl ER 10 MG TAB.ER.12H PO ×2 (08:11→21:05)
[2024-08-16] MEDS: guaiFENesin LA 600 MG TAB.ER.12H PO ×2 (08:11→21:05)
[2024-08-16] MEDS: Docusate Sodium 100 MG CAPSULE PO ×2 (08:15→21:05)
--- NOTE | 2024-08-16 08:15 | P.PNIM_ITS ---
Subjective Subjective Date of Service: 08/16/24 Interval History: S/P pneumonectomy on 07/17/2024 Biopsy showing adenocarcinoma of lung Extubated on the , developed flash pulmonary edema, treated with Lasix and ICU Denies SOB or difficulty breathing O2 requirement at 2 to 4 lits tired but slept well last night Review of Systems Review of Systems: Yes all other systems are reviewed and are negative Physical Exam 2 Vital Signs: Vital Signs: Last Vital Signs Temp 97.8 F 08/16/24 07:19 Pulse 79 08/16/24 07:19 Resp 16 08/16/24 07:19 BP 113/67 08/16/24 07:19 Pulse Ox 93 08/16/24 07:19 O2 Del Method Nasal Cannula 08/16/24 07:19 O2 Flow Rate 4 08/16/24 07:19 FiO2 40 08/06/24 08:00 BMI result Body Mass Index 17.4 General: AOx3, no acute distress. Frail-looking and emaciated Resp: Right lung rhonchi, left lung breath sounds severely diminished CVS: S1, S2, RRR GI: +BS, NT, no distention Skin: Warm, dry Neuro: Cranial nerves II-XII grossly intact bilaterally. Motor grossly intact bilaterally Extremities: No edema Psych: Appropriate affect Objective Data Active Medications Acetaminophen (Acetaminophen 325 Mg Tablet) 650 mg PO Q6H PRN PRN Reason: Pain, Moderate(Pain Scale 4-6) Last Admin: 08/12/24 12:59 Dose: 650 mg Documented By: MARIA ELENA Benzonatate (Benzonatate 100 Mg Capsule) 100 mg PO TID PRN PRN Reason: Cough Last Admin: 08/10/24 12:29 Dose: 100 mg Documented By: SHOSHANA Docusate Sodium (Docusate Sodium 100 Mg Capsule) 100 mg PO BID [facility] Last Admin: 08/15/24 20:01 Dose: 100 mg Documented By: KOBE Furosemide (Furosemide 40 Mg/4 Ml Vial) 40 mg IVPUSH DAILY [facility]; Protocol Last Admin: 08/16/24 08:09 Dose: 40 mg Documented By: VELVET Guaifenesin (Guaifenesin La 600 Mg Tab.Er.12h) 600 mg PO BID [facility] Last Admin: 08/16/24 08:11 Dose: 600 mg Documented By: VELVET Heparin Sodium (Porcine) (Heparin Sodium,Porcine 5,000 Unit/Ml Vial) 5,000 unit SUBCUT Q12H [facility] Last Admin: 08/16/24 08:09 Dose: 5,000 unit Documented By: VELVET Hydroxyzine HCl (Hydroxyzine Hcl 25 Mg Tablet) 25 mg PO Q6H PRN PRN Reason: anxiety/restlessness Last Admin: 08/15/24 22:18 Dose: 25 mg Documented By: SOLE Midodrine (Midodrine Hcl 5 Mg Tablet) 15 mg PO Q6H [facility] Last Admin: 08/16/24 08:11 Dose: 15 mg Documented By: VELVET Ondansetron HCl (Ondansetron Hcl 4 Mg/2 Ml Vial) 4 mg IVPUSH Q8H PRN PRN Reason: Nausea and Vomiting Last Admin: 07/18/24 21:28 Dose: 4 mg Documented By: FIIVETTE Oxycodone HCl (Oxycodone Hcl Immed Release 5 Mg Tablet) 10 mg PO Q4H PRN PRN Reason: Pain, Severe (Pain Scale 7-10) Last Admin: 08/16/24 07:15 Dose: 10 mg Documented By: VELVET Oxycodone HCl (Oxycodone Hcl Er 10 Mg Tab.Er.12h) 10 mg PO BID [facility] Last Admin: 08/16/24 08:11 Dose: 10 mg Documented By: VELVET Polyethylene Glycol (Polyethylene Glycol 3350 17 Gm Powd.Pack) 17 gm PO DAILY [facility] Last Admin: 08/16/24 08:07 Dose: Not Given Documented By: VELVET Non-Admin Reason: Patient Refused Sodium Biphosphate/Sodium Phosphate (Sodium Phosphate,[place]er-Dibasic 133 Ml Enema) 133 ml MD ONCE PRN PRN Reason: Constipation Last Admin: 07/25/24 18:05 Dose: 133 ml Documented By: CRYSTAL Sodium Chloride (0.9 % Sodium Chloride Flush 10 Ml Syringe) 5 ml IVFLUSH QSHIFT [facility] Last Admin: 08/16/24 08:09 Dose: 5 ml Documented By: VELVET Labs 08/13/24 08:34 08/13/24 08:27 Assessment and Plan (1) Adenocarcinoma, lung: Status: Acute (2) Generalized weakness: Status: Acute Plan 59-year-old gentleman, recent 30+ pack-year smoker admitted on 06/14/2024 with hypoxia and multifocal pneumonia with abscesses. Patient has been treated with empiric antibiotics with essentially negative cultures. His bronchoscopic lavage also had essentially negative cultures. However, clinically his pulmonary abscess got worse an he had an attempted left lower lobectomy on 07/17/2024, however he required completion left pneumonectomy, now being monitored in the intensive care unit. Extubated 07/18/2024. 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 decompensated on 07/30 and initially placed on Highflow Currently on 4L NC Incentive spirometry, mobilization, chest percussion therapy, taper oxygen down as tolerated surgery input appreciated: CXR 07/30 with increasing pneumonitis- unfortunately likely due to lymphovascular invasion Repeat CXR -unchanged completed cefepime/flagyl,Overall poor prognosis ,oxygen tapered to 2 liters d/w oncology and pulm: chest ct -Post left pneumonectomy there is moderate fluid in the left hemithorax with ipsilateral mediastinal shift.There is airspace consolidation with cystic changes and right lower lobe. Chronic interstitial thickening, cystic changes and emphysematous changes are seen in the right upper lobe . 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 oncology d/w patient:patient that he does not have PD-L1 or any actionable mutation that would make him eligible for targeted therapy. At this time he is too frail to receive intravenous chemotherapy. This can be addressed as an outpatient after his discharge from rehab. Deciding on pursuing hospic care after discharge acute hypokalemia, resolved follolow BMP Transaminitis LFT improving left lower rib cage pain with elevated lft's abd us:Cholelithiasis and biliary sludge with borderline wall thickening and mildly prominent common bile duct. d/w surgery -? acute cholecystis and initially treated with antibiotics GI following as MRCP--Biliary sludge. 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 No gross choledocholithiasis. 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 monitor HypOtension thought to be Possibly secondary to hemodynamic changes post pneumonectomy, and temporaly required vasopressors. Continue Midodrine as needed for low BP moderate malnutrition: continue supplements, encourage PO intake DTI Coccyx area ( please see note from wound care 08/04/24): Turn and Reposition every 2 hours and as needed for patient comfort.? Use pillows or wedges to support off loading positions. Off Load all bony prominences with use of pillows and heel boots if needed.? Apply Preventative foams where needed. ? Monitor for incontinence and moisture control, use barrier creams when needed for prevention and treatment. Provide adequate and supplemental nutrition.? Continue low air loss mattress. When applicable maintain blood glucose levels per Providers order. Coccyx - Off Load Pressure with Q2 hr turns and use of pillows - Cleanse with PH balance spray or wipes, pat dry. ?Apply thin layer of Triad to wound bed. Do not remove all of paste between applications as this may cause further skin damage.? Cover with foam dressing to aid in off loading and protection from friction. Change every 5 days and PRN. dvt prophylax: s/c heaprin oncology d/w plan with patient/sister-awaiting rehab placement. Code Status Long discussion w/pt and family on 08/12 about code satus Pt currently wished to remain full code but pursue possible hospice treatment Family with [facility] form not yet filled out; would like additional time to speak to pt Ultimately to rehab Quality Stroke Does the patient have a stroke diagnosis?: No VTE Prior VTE?: No VTE Risk Level:: Medical - moderate - high VTE Device Contraindication: Treatment Not Indicated VTE Drug Contraindication: N/A - Med Ordered
[2024-08-16] MEDS: hydrOXYzine HCL 25 MG TABLET PO ×2 (14:16→21:06)
[2024-08-17] MEDS: oxyCODONE HCl Immed Release 5 MG TABLET 10 MG PO ×4 (03:26→17:47)
[2024-08-17] MEDS: Midodrine HCl 5 MG TABLET 15 MG PO ×2 (03:26→07:54)
[2024-08-17 03:37] VITALS: BP 128/77; PULSE 85; RESP 19; TEMP 36.1; O2SAT 96
[2024-08-17 05:23] VITALS: BMI 17.4
[2024-08-17 06:17] LABS: Hematocrit 40.4 % (42.0-52.0); Hemoglobin 13.6 g/dl (14.0-18.0); Mean Corpuscular HGB Conc 33.7 g/dl (31.0-36.0); Mean Corpuscular Hemoglobin 30.2 pg (27.0-33.0); Mean Corpuscular Volume 89.6 fL (80.0-98.0); Mean Platelet Volume 9.4 fL (9.4-12.4); Platelet Count 377 X10*3/uL (160-400); Red Blood Count 4.51 X10*6/uL (4.60-5.80); Red Cell Distribution Width 13.5 % (11.0-16.0); White Blood Count 11.7 X10*3/uL (4.8-10.8)
[2024-08-17 06:33] LABS: Anion Gap 18 (12-20); Blood Urea Nitrogen 20 mg/dL (9-16); Calcium 10.1 mg/dL (8.4-10.2); Carbon Dioxide 33 mmol/L (22-29); Chloride 84 mmol/L (96-108); Creatinine Clr Calc Pharmacy 84.8; Estimated Glomerular Filt Rate > 60; Glucose Random 112 mg/dL (60-115); Potassium 3.5 mmol/L (3.3-5.1); Sodium 131 mmol/L (135-145)
[2024-08-17] MEDS: oxyCODONE HCl ER 10 MG TAB.ER.12H PO (07:53)
[2024-08-17] MEDS: Furosemide 40 MG TABLET PO (07:53)
[2024-08-17] MEDS: Docusate Sodium 100 MG CAPSULE PO (07:54)
[2024-08-17] MEDS: Heparin Sodium,Porcine 5,000 UNIT/ML VIAL 5000 UNIT SUBCUT (07:54)
[2024-08-17] MEDS: guaiFENesin LA 600 MG TAB.ER.12H PO (07:54)
[2024-08-17] MEDS: 0.9 % Sodium Chloride Flush 10 ML SYRINGE 5 ML IVFLUSH (07:54)
[2024-08-17 08:00] VITALS: BP 126/77; PULSE 80; RESP 18; TEMP 36; O2SAT 91
--- NOTE | 2024-08-17 09:32 | P.PNIM_ITS ---
Subjective Subjective Date of Service: 08/17/24 Interval History: S/P pneumonectomy on 07/17/2024 Biopsy showing adenocarcinoma of lung Extubated on the , developed flash pulmonary edema, treated with Lasix and ICU Denies SOB or difficulty breathing O2 requirement at 2 to 4 lits No new issues, pain seems well controlled Review of Systems Review of Systems: Yes all other systems are reviewed and are negative Physical Exam 2 Vital Signs: Vital Signs: Last Vital Signs Temp 96.8 F 08/17/24 08:00 Pulse 80 08/17/24 08:00 Resp 18 08/17/24 08:00 BP 126/77 08/17/24 08:00 Pulse Ox 91 L 08/17/24 08:00 O2 Del Method Nasal Cannula 08/17/24 08:00 O2 Flow Rate 4 08/17/24 08:00 FiO2 40 08/06/24 08:00 BMI result Body Mass Index 17.4 General: AOx3, no acute distress. Frail-looking and emaciated Resp: Right lung rhonchi, left lung breath sounds severely diminished CVS: S1, S2, RRR GI: +BS, NT, no distention Skin: Warm, dry Neuro: Cranial nerves II-XII grossly intact bilaterally. Motor grossly intact bilaterally Extremities: No edema Psych: Appropriate affect Objective Data Active Medications Acetaminophen (Acetaminophen 325 Mg Tablet) 650 mg PO Q6H PRN PRN Reason: Pain, Moderate(Pain Scale 4-6) Last Admin: 08/12/24 12:59 Dose: 650 mg Documented By: MARIA ELENA Benzonatate (Benzonatate 100 Mg Capsule) 100 mg PO TID PRN PRN Reason: Cough Last Admin: 08/10/24 12:29 Dose: 100 mg Documented By: SHOSHANA Docusate Sodium (Docusate Sodium 100 Mg Capsule) 100 mg PO BID [facility] Last Admin: 08/17/24 07:54 Dose: 100 mg Documented By: SHOSHANA Furosemide (Furosemide 40 Mg Tablet) 40 mg PO DAILY [facility]; Protocol Last Admin: 08/17/24 07:53 Dose: 40 mg Documented By: SHOSHANA Guaifenesin (Guaifenesin La 600 Mg Tab.Er.12h) 600 mg PO BID [facility] Last Admin: 08/17/24 07:54 Dose: 600 mg Documented By: SHOSHANA Heparin Sodium (Porcine) (Heparin Sodium,Porcine 5,000 Unit/Ml Vial) 5,000 unit SUBCUT Q12H [facility] Last Admin: 08/17/24 07:54 Dose: 5,000 unit Documented By: SHOSHANA Hydroxyzine HCl (Hydroxyzine Hcl 25 Mg Tablet) 25 mg PO Q6H PRN PRN Reason: anxiety/restlessness Last Admin: 08/16/24 21:06 Dose: 25 mg Documented By: MCKAYLA Midodrine (Midodrine Hcl 5 Mg Tablet) 15 mg PO Q6H [facility] Last Admin: 08/17/24 07:54 Dose: 15 mg Documented By: SHOSHANA Ondansetron HCl (Ondansetron Hcl 4 Mg/2 Ml Vial) 4 mg IVPUSH Q8H PRN PRN Reason: Nausea and Vomiting Last Admin: 07/18/24 21:28 Dose: 4 mg Documented By: KIARRA Oxycodone HCl (Oxycodone Hcl Immed Release 5 Mg Tablet) 10 mg PO Q4H PRN PRN Reason: Pain, Severe (Pain Scale 7-10) Last Admin: 08/17/24 07:53 Dose: 10 mg Documented By: SHOSHANA Oxycodone HCl (Oxycodone Hcl Er 10 Mg Tab.Er.12h) 10 mg PO BID [facility] Last Admin: 08/17/24 07:53 Dose: 10 mg Documented By: SHOSHANA Polyethylene Glycol (Polyethylene Glycol 3350 17 Gm Powd.Pack) 17 gm PO DAILY [facility] Last Admin: 08/17/24 07:57 Dose: Not Given Documented By: SHOSHANA Non-Admin Reason: Patient Refused Sodium Biphosphate/Sodium Phosphate (Sodium Phosphate,[place]key-Dibasic 133 Ml Enema) 133 ml [place] ONCE PRN PRN Reason: Constipation Last Admin: 07/25/24 18:05 Dose: 133 ml Documented By: CRYSTAL Sodium Chloride (0.9 % Sodium Chloride Flush 10 Ml Syringe) 5 ml IVFLUSH QSHIFT [facility] Last Admin: 08/17/24 07:54 Dose: 5 ml Documented By: SHOSHANA Labs 08/17/24 05:27 08/17/24 05:27 Labs: Laboratory Results - last 24 hr 08/17/24 05:27 MCV 89.6 MCH 30.2 MCHC 33.7 RDW 13.5 Plt Count 377 MPV 9.4 Absolute Nucleated RBC 0.000 Nucleated RBC % (auto) 0.0 Anion Gap 18 Estim Creat Clear Calc 84.8 Estimated GFR > 60 Random Glucose 112 Calcium 10.1 Microbiology Microbiology Results: Microbiology 06/14/24 16:08 Direct Acid Fast Bacilli Smear - Final Sputum - Expectorated Acid Fast Bacilli Culture & Smear - Final 06/16/24 03:15 Direct Acid Fast Bacilli Smear - Final Sputum - Expectorated Acid Fast Bacilli Culture & Smear - Final 06/16/24 10:30 Direct Acid Fast Bacilli Smear - Final Sputum - Expectorated Acid Fast Bacilli Culture & Smear - Final Assessment and Plan (1) Adenocarcinoma, lung: Status: Acute (2) Generalized weakness: Status: Acute Plan 59-year-old gentleman, recent 30+ pack-year smoker admitted on 06/14/2024 with hypoxia and multifocal pneumonia with abscesses. Patient has been treated with empiric antibiotics with essentially negative cultures. His bronchoscopic lavage also had essentially negative cultures. However, clinically his pulmonary abscess got worse an he had an attempted left lower lobectomy on 07/17/2024, however he required completion left pneumonectomy, now being monitored in the intensive care unit. Extubated 07/18/2024. 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 decompensated on 07/30 and initially placed on Highflow Currently on 4L NC Incentive spirometry, mobilization, chest percussion therapy, taper oxygen down as tolerated surgery input appreciated: CXR 07/30 with increasing pneumonitis- unfortunately likely due to lymphovascular invasion Repeat CXR -unchanged completed cefepime/flagyl,Overall poor prognosis ,oxygen tapered to 2 liters d/w oncology and pulm: chest ct -Post left pneumonectomy there is moderate fluid in the left hemithorax with ipsilateral mediastinal shift.There is airspace consolidation with cystic changes and right lower lobe. Chronic interstitial thickening, cystic changes and emphysematous changes are seen in the right upper lobe . 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 oncology d/w patient:patient that he does not have PD-L1 or any actionable mutation that would make him eligible for targeted therapy. At this time he is too frail to receive intravenous chemotherapy. This can be addressed as an outpatient after his discharge from rehab. Deciding on pursuing hospic care after discharge acute hypokalemia, resolved follolow BMP Transaminitis LFT improving left lower rib cage pain with elevated lft's abd us:Cholelithiasis and biliary sludge with borderline wall thickening and mildly prominent common bile duct. d/w surgery -? acute cholecystis and initially treated with antibiotics GI following as MRCP--Biliary sludge. 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 No gross choledocholithiasis. 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 monitor HypOtension thought to be Possibly secondary to hemodynamic changes post pneumonectomy, and temporaly required vasopressors. Continue Midodrine as needed for low BP Mild hyponatrremia d/t SIADH, stable moderate malnutrition: continue supplements, encourage PO intake DTI Coccyx area ( please see note from wound care 08/04/24): Turn and Reposition every 2 hours and as needed for patient comfort.? Use pillows or wedges to support off loading positions. Off Load all bony prominences with use of pillows and heel boots if needed.? Apply Preventative foams where needed. ? Monitor for incontinence and moisture control, use barrier creams when needed for prevention and treatment. Provide adequate and supplemental nutrition.? Continue low air loss mattress. When applicable maintain blood glucose levels per Providers order. Coccyx - Off Load Pressure with Q2 hr turns and use of pillows - Cleanse with PH balance spray or wipes, pat dry. ?Apply thin layer of Triad to wound bed. Do not remove all of paste between applications as this may cause further skin damage.? Cover with foam dressing to aid in off loading and protection from friction. Change every 5 days and PRN. dvt prophylax: s/c heaprin oncology d/w plan with patient/sister-awaiting rehab placement. Code Status Long discussion w/pt and family on 08/12 about code satus Pt currently wished to remain full code but pursue possible hospice treatment Family with [facility] form not yet filled out; would like additional time to speak to pt Ultimately to rehab Quality Stroke Does the patient have a stroke diagnosis?: No VTE Prior VTE?: No VTE Risk Level:: Medical - moderate - high VTE Device Contraindication: Treatment Not Indicated VTE Drug Contraindication: N/A - Med Ordered
--- NOTE | 2024-08-17 11:14 | MHC.CM.PN ---
Addendum entered by Cary Bennett 08/17/24 13:13: DP: [facility] HAS OBTAINED INSURANCE AUTH : PT IS MEDICALLY CLEARED FOR DC TO [facility]. RN/MD NOTIFIED AND HCP ROSALINDA WAS UPDATED. BLS TRANSPORT BOOKED FOR 4 PM VIA [place]. Original Note: CM CONTINUES TO AWAIT INSURANCE AUTH FROM [facility]
[2024-08-17 12:00] VITALS: BP 115/74; PULSE 83; RESP 18; TEMP 36.6; O2SAT 92
--- NOTE | 2024-08-17 12:04 | MHC.CLN ---
F/U DIET=REGULAR. INTAKE VARIABLE, 50-100%. CONTINUE TO PROVIDE SUPPLEMENTS PT ACCEPTS TO PROMOTE WOUND HEALING: ENSURE BID PROVIDES 700KCALS, 40G PROTEIN (PREFERS STRAWBERRY) MAGIC CUP BID PROVIDES 580KCALS, 18G PROTEIN SKIN WITH STAGE II PRESSURE INJURY TO COCCYX. DX METASTATIC ADENOCARCINOMA OF LUNG. POOR PROGNOSIS. CONTINUE TO MONITOR PO INTAKE AND ENCOURAGE SUPPLEMENTS.
--- NOTE | 2024-08-17 14:06 | PM.DS ---
DS: Providers Provider Date of Service: 08/17/24 Date of admission: 06/14/24 15:09 Date of discharge: 08/17/24 Primary care physician: None Physician Consults: 06/14/24 15:21 Consult to Infectious Diseases Routine Consulting Provider: [facility] Reason for consultation: TB r/o Consult to Pulmonology Routine Consulting Provider: [facility] Reason for consultation: Multifocal abscesses vs cavitary lesions 06/19/24 08:14 Consult to Hematology / Oncology Routine Consulting Provider: [facility] Reason for consultation: erythrocytosis Has provider been notified: No 06/28/24 11:05 Consult to Nephrology Routine Consulting Provider: [facility] Reason for consultation: Hyponatremia Has provider been notified: Yes 07/15/24 13:40 Consult to Thoracic Surgery Routine Consulting Provider: Kuldeep Gee Reason for consultation: lung abscess Has provider been notified: No 07/24/24 09:40 Consult to Urology Routine Consulting Provider: [facility] Reason for consultation: urinary retention Has provider been notified: No 07/24/24 10:00 Consult to Wound Care Routine Reason for consultation: STAGE 1 COCCYX 07/30/24 09:56 Addiction Medicine Provider Routine Consulting Provider: [facility] Reason for consultation: smoking ciggarettes and Marijuana. for psychological support and OP plan 07/30/24 10:56 Consult to Hematology / Oncology Routine Consulting Provider: [facility] Reason for consultation: Mixed invasive mucinous and non-mucinous adenocarcinoma, G3 08/03/24 15:11 Consult to Wound Care Routine Reason for consultation: surgical site L U back 08/12/24 12:39 Ethics Eval Routine Comment: Prognosis discussion and plan of care next steps DS: Diagnosis Discharge Diagnosis (1) Adenocarcinoma, lung: Status: Acute (2) Generalized weakness: Status: Acute DS: Summary Hospital Course Hospital Course: admission hpi Chief Complaint: SOB, cough Pt is a 59-year-old male with no reported significant PMH, has not follow up with PCP in 5+ years, recently stopped smoking after [id number] [id number] who presents to the ED with?increasing SOB, difficulty breathing, productive cough, and fatigue x1 month. No fever or chills. No night sweats. Initially presented to walk-in clinic on 06/01/2023 where he was treated for pneumonia and prescribed levofloxacin and doxycycline. Pt reports symptoms improved while he was on antibiotics, though after completing prescription symptoms returned and worsened. Reports he has lost 15 lb in the last month, has chest tightness associated with deep breathing and chest pain associated with cough. No recent travel. No sick contacts. Pt reports stopped smoking after walk-in clinic visit In the ED pt with elevated heart of 93, tachypnea of 22, and hypoxia as low as 86% on RA. Labs were significant for leukocytosis 12.2, H&H 20.8/60.5, and CRP 2.97. No electrolyte abnormalities. Renal function WNL. Lactic acid WNL. Hepatic function WNL. Initial troponin 4.7. BNP WNL at 50. Tested negative for flu, RSV, COVID. CXR showed extensive left greater than right multifocal pneumonitis. CTA of chest negative for PE but showing extensive bilateral airspace and ground-glass opacities, left greater than right, consistent with inflammatory or infectious process. Also showed superimposed multifocal air-fluid levels in left lung concerning for multifocal abscesses and/or cavitary lesions with superimposed infection. EKG demonstrated normal sinus rhythm without evidence of significant ST elevations or depressions. Pt was treated with Mag sulfate, Solu-Medrol, DuoNeb, IVF, cefepime, and vancomycin. Pt will be admitted to the hospital for treatment and further evaluation of acute hypoxic respiratory failure in the setting of multifocal pneumonia with sepsis concerning for pulmonary abscesses/cavitary lesions. hospital course; 59-year-old gentleman, recent 30+ pack-year smoker admitted on 06/14/2024 with hypoxia and multifocal pneumonia with abscesses. Patient has been treated with empiric antibiotics with essentially negative cultures. His bronchoscopic lavage also had essentially negative cultures. However, clinically his pulmonary abscess got worse an he had an attempted left lower lobectomy on 07/17/2024, however he required complete left pneumonectomy, and was monitored in ICU after pneumonectomy and was monitored in the ICU and later succesfuslly extubated Extubated 07/18/2024. acute hpyoxic respiratory failure 2/2 Metastatic adenocarcinoma with reported lung abscess s/p pneumonectomy on 07/17/2024 lung biopsy result showing Mixed invasive mucinous and non-mucinous adenocarcinoma, G3 extubated on 07/19/2024, had episodes of flash pulmonary edema treated with lasix. decompensated on 4/24 Placed on High flow and gradually weaned off and presently on 4 liter To continue Incentive spirometry, mobilization, chest percussion therapy, taper oxygen down as tolerated surgery has been following the patient. CXR 07/30 with increasing pneumonitis- unfortunately likely due to lymphovascular invasion Repeat CXR -unchanged He has completed cefepime/flagyl,Overall poor prognosis Discussion with oncology and pulm: chest ct -Post left pneumonectomy there is moderate fluid in the left hemithorax with ipsilateral mediastinal shift.There is airspace consolidation with cystic changes and right lower lobe. Chronic interstitial thickening, cystic changes and emphysematous changes are seen in the right upper lobe . 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 oncology d/w patient:patient that he does not have PD-L1 or any actionable mutation that would make him eligible for targeted therapy. At this time he is too frail to receive intravenous chemotherapy. And they recommend hospice, patient and mahad goldstein decide on hospice on outpatient basis Chronic respriatory secretion, he performs frequent self suctioning acute hypokalemia, resolved follolow BMP Transaminitis LFT improving left lower rib cage pain with elevated lft's abd us:Cholelithiasis and biliary sludge with borderline wall thickening and mildly prominent common bile duct. d/w surgery -? acute cholecystis and initially treated with antibiotics GI following as MRCP--Biliary sludge. 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 No gross choledocholithiasis. 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 monitor HypOtension thought to be Possibly secondary to hemodynamic changes post pneumonectomy, and temporaly required vasopressors. Continue Midodrine as needed for low BP--Resolved Mild hyponatrremia d/t SIADH, stable moderate malnutrition: continue supplements, encourage PO intake DTI Coccyx area ( please see note from wound care 08/04/24): Turn and Reposition every 2 hours and as needed for patient comfort.? Use pillows or wedges to support off loading positions. Off Load all bony prominences with use of pillows and heel boots if needed.? Apply Preventative foams where needed. ? Monitor for incontinence and moisture control, use barrier creams when needed for prevention and treatment. Provide adequate and supplemental nutrition.? Continue low air loss mattress. Coccyx - Off Load Pressure with Q2 hr turns and use of pillows - Cleanse with PH balance spray or wipes, pat dry. ?Apply thin layer of Triad to wound bed. Do not remove all of paste between applications as this may cause further skin damage.? Cover with foam dressing to aid in off loading and protection from friction. Change every 5 days and PRN. dvt prophylax: s/c heaprin Code Status Long discussion w/pt and family on 08/12 about code satus Pt currently wished to remain full code but pursue possible hospice treatment Time Attestation Discharge Coordination Time (in mins): 45 Quality: Safe Use of Opioids Does Pt have an Active Cancer Diagnosis on the Problem List?: No Quality: Stroke Does the patient have a stroke diagnosis?: No Physical Exam Vital Signs: Vital Signs: Last Vital Signs Temp 97.9 F 08/17/24 12:00 Pulse 83 08/17/24 12:00 Resp 18 08/17/24 12:00 BP 115/74 08/17/24 12:00 Pulse Ox 92 08/17/24 12:00 O2 Del Method Nasal Cannula 08/17/24 12:00 O2 Flow Rate 4 08/17/24 12:00 FiO2 40 08/06/24 08:00 BMI result Body Mass Index 17.4 General: AOx3, no acute distress. Frail-looking and emaciated Resp: Right lung rhonchi, left lung breath sounds severely diminished CVS: S1, S2, RRR GI: +BS, NT, no distention Skin: Warm, dry Neuro: Cranial nerves II-XII grossly intact bilaterally. Motor grossly intact bilaterally Extremities: No edema Psych: Appropriate affect DS: Data Data Completed and Pending Completed studies during hospitalization [Text1]: Pending at discharge 07/11/24 11:19 Cytology [PTH] Stat 07/17/24 09:04 Surgical [PTH] Routine Labs on day of discharge: Laboratory Results - last 24 hr 08/17/24 05:27 WBC 11.7 H RBC 4.51 L Hgb 13.6 L Hct 40.4 L MCV 89.6 MCH 30.2 MCHC 33.7 RDW 13.5 Plt Count 377 MPV 9.4 Absolute Nucleated RBC 0.000 Nucleated RBC % (auto) 0.0 Sodium 131 L Potassium 3.5 Chloride 84 L Carbon Dioxide 33 H Anion Gap 18 BUN 20 H Creatinine 0.72 Estim Creat Clear Calc 84.8 Estimated GFR > 60 Random Glucose 112 Calcium 10.1 Discharge Plan Discharge Anticipated Discharge Date/Time: 08/17/24 14:05 Patient Disposition: Xfer SNF Discharge Diagnosis: Lung cancer, pneumonia, respriatory failure, frailty, Referrals: [facility] [Other] - 1 Week Physician,None [Primary Care Provider] - 1 Week Kuldeep Gee MD [Physician] - 1 Week Discharge Medications: New hydrocodone-acetaminophen 5-325 mg tablet 1 tab PO Q4-6H PRN (Reason: pain) Qty: 30 0RF Rx Instructions: Partial Fill upon patient request. furosemide 40 mg Tablet 40 mg PO DAILY Qty: 30 0RF Protocol: Hold for SBP< HOLD for SBP < : 90 acetaminophen 325 mg Tablet 650 mg PO Q6H PRN (Reason: Pain, Moderate(Pain Scale 4-6)) Qty: 30 0RF polyethylene glycol 3350 17 gram Powder In Packet 17 g PO DAILY Qty: 60 0RF midodrine 5 mg Tablet 15 mg PO Q6H Qty: 60 0RF docusate sodium 100 mg Capsule 100 mg PO BID Qty: 60 0RF hydroxyzine HCl 25 mg Tablet 25 mg PO Q6H PRN (Reason: Anxiety/Restlessness) Qty: 30 0RF heparin (porcine) 5,000 unit/mL Solution 5,000 unit subcut Q12H Qty: 60 0RF oxycodone 5 mg Tablet 10 mg PO Q4H PRN (Reason: Pain, Severe (Pain Scale 7-10)) Qty: 60 0RF Rx Instructions: Partial Fill upon patient request. guaifenesin [Mucinex] 600 mg Tablet Extended Release 12hr 600 mg PO BID Qty: 30 0RF oxycodone [OxyContin] 10 mg Tablet,Oral Only,Ext.Rel.12 Hr 10 mg PO BID Qty: 60 0RF Rx Instructions: Partial Fill upon patient request. Continued albuterol sulfate 90 mcg/actuation HFA aerosol inhaler 2 puff inhalation Q6H PRN (Reason: shortness of breath or wheezing) Discontinued ibuprofen 400 mg Tablet 400 mg PO Q8H PRN (Reason: Pain) Discharge Orders: Discharge Order (Routine); Ordered 08/17/24 Ordered By: Lane Mlapah Diet: Advance to usual diet Activity on Discharge: No heavy lifting Stand Alone Forms: Patient Portal Discharge page Print Language: Sinhala Activity Restrictions/Additional Instructions: Ice to wound 20 minutes several times today and tomorrow. May shower. Remove outside dressing only. Leave Steri-Strips intact. No strenuous activities Topical Wound Care Recommendations: 1. Turn and Reposition every 2 hours and as needed for patient comfort.? Use pillows or wedges to support off loading positions. 2. Off Load all bony prominences with use of pillows and heel boots if needed.? Apply Preventative foams where needed. ? 3. Monitor for incontinence and moisture control, use barrier creams when needed for prevention and treatment. 4. Provide adequate and supplemental nutrition.? 5. Continue low air loss mattress. Patient currently in Agility Pulsate bed. 6. When applicable maintain blood glucose levels per Providers order. Coccyx - Off Load Pressure with Q2 hr turns and use of pillows - Cleanse with PH balance spray or wipes, pat dry. ?Apply layer of Medihoney to wound bed. May cover with foam dressing to aid in pressure redistribution. Change every 2-3 days and PRN. Left Upper Back - Cleanse with NS moist gauze, pat dry. Apply skin prep to periwound. Cover wound bed with Durafiber AG followed by Foam dressing. Change every 3 days and PRN. Care Plan Goals: recovery from lungs cancer s/p pneumonectomy, respiratory failure, failure to thrive Health Concerns: lung cancer, s/p pneumonectomy, respriatory failure, oxygen dependent chronic secretion from lungs throat Plan of Treatment: to short term rehab and further discussion regarding lung cancer treatment vs paliative/hospice care Assessment: see above Discharge Date/Time: 08/17/24 18:04
[2024-08-17 16:00] VITALS: BP 121/73; PULSE 94; RESP 16; TEMP 36; O2SAT 95
--- NOTE | 2024-08-17 16:08 | HO.REMOVAL ---
Removal of PICC/Midline Removal of PICC/Midline: Removal of PICC/Midline: 1. Date: 08/17/24 2. Reason removed: No longer needed 3. Inserted length: 14 CM 4. Removed length: 14 CM 5. A dressing was placed over the site upon removal. No edema or bleeding at the site.
[2024-08-17 16:11] VITALS: BP 121/73
== END 2024-08-17 18:04 | disposition skilled nursing facility (03) | DRG 120 ==
LOC: HO.ED 13:50 → HO.EDOVER 15:28 → HO.IMC 06-15 17:12 → HO.S3 06-25 17:25 → HO.ICU 07-17 10:28 → HO.IMC 07-24 16:06 → HO.S3 07-29 11:44 → HO.IMC 07-30 07:38 → HO.S3 08-08 11:31
PROVIDERS: Family Medicine; Hospitalist; Internal Medicine; Internal Medicine Critical Care Medicine; Internal Medicine Pulmonary Disease; Physician Assistant Medical; Registered Nurse Community Health; Student in an Organized Health Care Education/Training Program; Surgery; Admitting Provider Student in an Organized Health Care Education/Training Program; Emergency Provider Emergency Medicine; Visit Provider Internal Medicine
PROC: 0BJ08ZZ Inspection of Tracheobronchial Tree, Via Natural or Artificial Opening Endoscopic (ICD-10-PCS; CPT 31622; principal; 2024-07-11 10:00)
PROC: 0BTJ0ZZ Resection of Left Lower Lung Lobe, Open Approach (ICD-10-PCS; principal; 2024-07-17 07:30)
DX: C34.82 Malignant neoplasm of overlapping sites of left bronchus and lung (principal); J96.01 Acute respiratory failure with hypoxia; R57.0 Cardiogenic shock; A41.9 Sepsis, unspecified organism; G93.41 Metabolic encephalopathy; J85.1 Abscess of lung with pneumonia; J85.0 Gangrene and necrosis of lung; J81.0 Acute pulmonary edema; I74.5 Embolism and thrombosis of iliac artery; E43 Unspecified severe protein-calorie malnutrition; C34.81 Malignant neoplasm of overlapping sites of right bronchus and lung; J98.4 Other disorders of lung; C77.1 Secondary and unspecified malignant neoplasm of intrathoracic lymph nodes; E88.A Wasting disease (syndrome) due to underlying condition; K52.1 Toxic gastroenteritis and colitis; E86.1 Hypovolemia; J44.0 Chronic obstructive pulmonary disease with (acute) lower respiratory infection; K21.9 Gastro-esophageal reflux disease without esophagitis; E87.6 Hypokalemia; E22.2 Syndrome of inappropriate secretion of antidiuretic hormone; Z68.1 Body mass index [BMI] 19.9 or less, adult; I71.43 Infrarenal abdominal aortic aneurysm, without rupture; K81.0 Acute cholecystitis; R33.9 Retention of urine, unspecified; I95.2 Hypotension due to drugs; T42.75XA Adverse effect of unspecified antiepileptic and sedative-hypnotic drugs, initial encounter; L27.0 Generalized skin eruption due to drugs and medicaments taken internally; T36.8X5A Adverse effect of other systemic antibiotics, initial encounter; K29.00 Acute gastritis without bleeding; D75.1 Secondary polycythemia; Z80.1 Family history of malignant neoplasm of trachea, bronchus and lung; Z87.891 Personal history of nicotine dependence; Z79.899 Other long term (current) drug therapy
CPT/HCPCS: 0241U; 36410; 36415; 36600; 71045; 71046; 71250; 71275; 74181; 76705; 76937; 80048; 80053; 80076; 80202; 81001; 81003; 82040; 82378; 82533; 82565; 82570; 82668; 82803; 82947; 83605; 83615; 83735; 83880; 83930; 84100; 84145; 84300; 84439; 84443; 84484; 85014; 85018; 85025; 85027; 85652; 86021; 86140; 86431; 86481; 86704; 86706; 86709; 86803; 86850; 86900; 86901; 86923; 87040; 87070; 87077; 87086; 87102; 87116; 87205; 87206; 87340; 87389; 87449; 87493; 87507; 87564; 87633; 87640; 87641; 88112; 88305; 88309; 88313; 88341; 88342; 93005; 94002; 94003; 94640; 94799; 97110; 97112; 97116; 97161; 97530; 97535; 99195; 99285; A7041; C1751; C1894; J0131; J0171; J0456; J0666; J0692; J0736; J1100; J1160; J1171; J1200; J1450; J1642; J1644; J1650; J1836; J1885; J1938; J1940; J1956; J2003; J2185; J2250; J2270; J2405; J2470; J2704; J2795; J2919; J3010; J3370; J3371; J3475; J7120; P9047; Q9967

== ENCOUNTER → 2024-06-14 10:48 | Outpatient (BNV) | payer OTHER, SELFPAY | PROVIDERS: Admitting Provider Student in an Organized Health Care Education/Training Program; Emergency Provider Emergency Medicine; Visit Provider Internal Medicine | DX: R06.00 Dyspnea, unspecified (principal) | CPT/HCPCS: 93010 ==

== ENCOUNTER → 2024-06-14 10:48 | Outpatient (BNV) | payer OTHER, SELFPAY | PROVIDERS: Emergency Provider Emergency Medicine; Visit Provider Radiology Diagnostic Radiology | DX: J43.9 Emphysema, unspecified (principal); R91.8 Other nonspecific abnormal finding of lung field | CPT/HCPCS: 71275 ==

== ENCOUNTER 2024-06-14 15:09 | Outpatient (BNV) | payer OTHER, SELFPAY | END 2024-07-27 12:01 | PROVIDERS: Admitting Provider Student in an Organized Health Care Education/Training Program; Emergency Provider Emergency Medicine; Visit Provider Radiology Diagnostic Radiology | DX: J18.9 Pneumonia, unspecified organism (principal) | CPT/HCPCS: 74181 ==

== ENCOUNTER 2024-06-14 15:09 | Outpatient (BNV) | payer OTHER, SELFPAY | END 2024-07-17 10:50 | PROVIDERS: Admitting Provider Student in an Organized Health Care Education/Training Program; Emergency Provider Emergency Medicine; Visit Provider Radiology Diagnostic Radiology | DX: Z46.82 Encounter for fitting and adjustment of non-vascular catheter (principal) | CPT/HCPCS: 71045 ==

== ENCOUNTER 2024-06-14 15:09 | Outpatient (BNV) | payer OTHER, SELFPAY | END 2024-06-27 09:25 | PROVIDERS: Admitting Provider Student in an Organized Health Care Education/Training Program; Emergency Provider Emergency Medicine; Visit Provider Radiology Diagnostic Radiology | DX: J18.9 Pneumonia, unspecified organism (principal) | CPT/HCPCS: 71250 ==

== ENCOUNTER 2024-06-14 15:09 | Outpatient (BNV) | payer OTHER, SELFPAY | END 2024-06-22 08:00 | PROVIDERS: Admitting Provider Student in an Organized Health Care Education/Training Program; Emergency Provider Emergency Medicine; Visit Provider Radiology Diagnostic Radiology | DX: J85.1 Abscess of lung with pneumonia (principal) | CPT/HCPCS: 71250 ==

== ENCOUNTER 2024-06-14 15:09 | Outpatient (BNV) | payer OTHER, SELFPAY | END 2024-07-26 12:22 | PROVIDERS: Admitting Provider Student in an Organized Health Care Education/Training Program; Emergency Provider Emergency Medicine; Visit Provider Radiology Diagnostic Radiology | DX: J90 Pleural effusion, not elsewhere classified (principal) | CPT/HCPCS: 71045 ==

== ENCOUNTER 2024-06-14 15:09 | Outpatient (BNV) | payer OTHER, SELFPAY | END 2024-08-03 11:18 | PROVIDERS: Admitting Provider Student in an Organized Health Care Education/Training Program; Emergency Provider Emergency Medicine; Visit Provider Radiology Diagnostic Radiology | DX: J18.9 Pneumonia, unspecified organism (principal) | CPT/HCPCS: 71045 ==

== ENCOUNTER 2024-06-14 15:09 | Outpatient (BNV) | payer OTHER, SELFPAY | END 2024-07-18 08:20 | PROVIDERS: Admitting Provider Student in an Organized Health Care Education/Training Program; Emergency Provider Emergency Medicine; Visit Provider Specialist | DX: J90 Pleural effusion, not elsewhere classified (principal) | CPT/HCPCS: 71045 ==

== ENCOUNTER 2024-06-14 15:09 | Outpatient (BNV) | payer OTHER, SELFPAY | END 2024-07-15 10:57 | PROVIDERS: Admitting Provider Student in an Organized Health Care Education/Training Program; Emergency Provider Emergency Medicine; Visit Provider Radiology Diagnostic Radiology | DX: J18.9 Pneumonia, unspecified organism (principal) | CPT/HCPCS: 71046 ==

== ENCOUNTER 2024-06-14 15:09 | Outpatient (BNV) | payer OTHER, SELFPAY | END 2024-07-22 07:15 | PROVIDERS: Admitting Provider Student in an Organized Health Care Education/Training Program; Emergency Provider Emergency Medicine; Visit Provider Radiology Diagnostic Radiology | DX: J98.11 Atelectasis (principal) | CPT/HCPCS: 71045 ==

== ENCOUNTER 2024-06-14 15:09 | Outpatient (BNV) | payer OTHER, SELFPAY | END 2024-07-30 07:15 | PROVIDERS: Admitting Provider Student in an Organized Health Care Education/Training Program; Emergency Provider Emergency Medicine; Visit Provider Radiology Diagnostic Radiology | DX: J18.9 Pneumonia, unspecified organism (principal) | CPT/HCPCS: 71045 ==

== ENCOUNTER 2024-06-14 15:09 | Outpatient (BNV) | payer OTHER, SELFPAY | END 2024-07-20 06:00 | PROVIDERS: Admitting Provider Student in an Organized Health Care Education/Training Program; Emergency Provider Emergency Medicine; Visit Provider Specialist | DX: J98.11 Atelectasis (principal) | CPT/HCPCS: 71045 ==

== ENCOUNTER 2024-06-14 15:09 | Outpatient (BNV) | payer OTHER, SELFPAY | END 2024-07-19 06:45 | PROVIDERS: Admitting Provider Student in an Organized Health Care Education/Training Program; Emergency Provider Emergency Medicine; Visit Provider Specialist | DX: J96.01 Acute respiratory failure with hypoxia (principal); Z90.2 Acquired absence of lung [part of] | CPT/HCPCS: 71045 ==

== ENCOUNTER 2024-06-14 15:09 | Outpatient (BNV) | payer OTHER, SELFPAY | END 2024-07-03 12:32 | PROVIDERS: Admitting Provider Student in an Organized Health Care Education/Training Program; Emergency Provider Emergency Medicine; Visit Provider Radiology Diagnostic Radiology | DX: J44.9 Chronic obstructive pulmonary disease, unspecified (principal) | CPT/HCPCS: 71045 ==

== ENCOUNTER 2024-06-14 15:09 | Outpatient (BNV) | payer OTHER, SELFPAY | END 2024-07-28 09:45 | PROVIDERS: Admitting Provider Student in an Organized Health Care Education/Training Program; Emergency Provider Emergency Medicine; Visit Provider Radiology Diagnostic Radiology | DX: J98.4 Other disorders of lung (principal) | CPT/HCPCS: 71045 ==

== ENCOUNTER 2024-06-14 15:09 | Outpatient (BNV) | payer OTHER, SELFPAY | END 2024-07-24 06:00 | PROVIDERS: Admitting Provider Student in an Organized Health Care Education/Training Program; Emergency Provider Emergency Medicine; Visit Provider Specialist | DX: R74.01 Elevation of levels of liver transaminase levels (principal); C34.92 Malignant neoplasm of unspecified part of left bronchus or lung; Z90.2 Acquired absence of lung [part of] | CPT/HCPCS: 71045; 76705; 93976 ==

== ENCOUNTER 2024-06-14 15:09 | Outpatient (BNV) | payer OTHER, SELFPAY | END 2024-07-19 12:10 | PROVIDERS: Admitting Provider Student in an Organized Health Care Education/Training Program; Emergency Provider Emergency Medicine; Visit Provider Internal Medicine Cardiovascular Disease | DX: R00.0 Tachycardia, unspecified (principal) | CPT/HCPCS: 93010 ==

== ENCOUNTER 2024-06-14 15:09 | Outpatient (BNV) | payer OTHER, SELFPAY | END 2024-08-04 15:27 | PROVIDERS: Admitting Provider Student in an Organized Health Care Education/Training Program; Emergency Provider Emergency Medicine; Visit Provider Radiology Diagnostic Radiology | DX: J84.9 Interstitial pulmonary disease, unspecified (principal); Z90.2 Acquired absence of lung [part of] | CPT/HCPCS: 71250 ==

== ENCOUNTER → 2024-06-14 15:09 | Outpatient (BNV) | payer OTHER, SELFPAY | PROVIDERS: Admitting Provider Student in an Organized Health Care Education/Training Program; Emergency Provider Emergency Medicine; Visit Provider Internal Medicine Hypertension Specialist | DX: E87.1 Hypo-osmolality and hyponatremia (principal) | CPT/HCPCS: 99223; 99232 ==

== ENCOUNTER → 2024-06-14 15:09 | Outpatient (BNV) | payer OTHER, SELFPAY | PROVIDERS: Admitting Provider Student in an Organized Health Care Education/Training Program; Emergency Provider Emergency Medicine; Visit Provider Student in an Organized Health Care Education/Training Program | DX: J85.1 Abscess of lung with pneumonia (principal); E87.1 Hypo-osmolality and hyponatremia | CPT/HCPCS: 99223; 99232; 99233; 99499 ==

== ENCOUNTER → 2024-06-14 15:09 | Outpatient (BNV) | payer OTHER, SELFPAY | PROVIDERS: Admitting Provider Student in an Organized Health Care Education/Training Program; Emergency Provider Emergency Medicine; Visit Provider Internal Medicine | DX: D75.1 Secondary polycythemia (principal); J96.01 Acute respiratory failure with hypoxia; J85.1 Abscess of lung with pneumonia; J18.9 Pneumonia, unspecified organism | CPT/HCPCS: 99221 ==

== ENCOUNTER → 2024-06-14 15:09 | Outpatient (BNV) | payer OTHER, SELFPAY | PROVIDERS: Admitting Provider Student in an Organized Health Care Education/Training Program; Emergency Provider Emergency Medicine; Visit Provider Internal Medicine Pulmonary Disease | DX: J18.9 Pneumonia, unspecified organism (principal); J85.1 Abscess of lung with pneumonia | CPT/HCPCS: 99222 ==

== ENCOUNTER → 2024-06-14 15:09 | Outpatient (BNV) | payer OTHER, SELFPAY | PROVIDERS: Admitting Provider Student in an Organized Health Care Education/Training Program; Emergency Provider Emergency Medicine; Visit Provider Internal Medicine Critical Care Medicine | DX: E87.1 Hypo-osmolality and hyponatremia (principal); D75.1 Secondary polycythemia; J06.9 Acute upper respiratory infection, unspecified; J85.1 Abscess of lung with pneumonia; J96.01 Acute respiratory failure with hypoxia; J18.9 Pneumonia, unspecified organism; Z90.2 Acquired absence of lung [part of]; R05.3 Chronic cough | CPT/HCPCS: 99291 ==

== ENCOUNTER → 2024-06-14 15:09 | Outpatient (BNV) | payer OTHER, SELFPAY | PROVIDERS: Admitting Provider Student in an Organized Health Care Education/Training Program; Emergency Provider Emergency Medicine; Visit Provider Urology | DX: Z90.2 Acquired absence of lung [part of] (principal); R53.1 Weakness; R33.9 Retention of urine, unspecified | CPT/HCPCS: 99222 ==

== ENCOUNTER → 2024-06-14 15:09 | Outpatient (BNV) | payer OTHER, SELFPAY | PROVIDERS: Admitting Provider Student in an Organized Health Care Education/Training Program; Emergency Provider Emergency Medicine; Visit Provider Physician Assistant Surgical | DX: Z90.2 Acquired absence of lung [part of] (principal); J85.1 Abscess of lung with pneumonia; J96.01 Acute respiratory failure with hypoxia; J18.9 Pneumonia, unspecified organism; R09.02 Hypoxemia | CPT/HCPCS: 32440; 99024; 99223; 99233 ==

== ENCOUNTER → 2024-06-14 15:09 | Outpatient (BNV) | payer OTHER, SELFPAY | PROVIDERS: Admitting Provider Student in an Organized Health Care Education/Training Program; Emergency Provider Emergency Medicine; Visit Provider Internal Medicine | DX: J18.9 Pneumonia, unspecified organism (principal); J96.01 Acute respiratory failure with hypoxia; J85.1 Abscess of lung with pneumonia | CPT/HCPCS: 99222 ==